=== PATIENT | male | born 1945 ===

== ENCOUNTER 2018-03-07 14:51 | Inpatient (IN) | payer MEDICARE ==
--- NOTE | 2018-03-07 15:08 | ED PDOC ---
Arrival/HPI - General Chief Complaint: Shortness Of Breath Time Seen by Provider: 03/07/18 15:00 Historian: Patient - History of Present Illness Narrative History of Present Illness (Text): 03/07/18 15:07 A 72 year old male, whose past medical history includes asthma, COPD, gout, and hypertension, presents to the emergency department complaining of shortness of breath. Patient reports worse 30 mg Predizone prior to arrival. Patient also has Albuterol treatment right now. Patient denies any fever, chills, or any other complaints at this time. PMD: Dr. Tafoya Past Medical History - Provider Review Nursing Documentation Reviewed: Yes - Infectious Disease Hx of Infectious Diseases: None - Cardiac Hx Hypertension: Yes - Pulmonary Hx Asthma: Yes - Neurological Hx Neurological Disorder: No - HEENT Hx HEENT Disorder: No - Endocrine/Metabolic Hx Endocrine Disorders: No - Hematological/Oncological Hx Blood Disorders: No - Integumentary Hx Dermatological Disorder: No - Musculoskeletal/Rheumatological Hx Musculoskeletal Disorders: No - Gastrointestinal Hx Gastrointestinal Disorders: No - Genitourinary/Gynecological Hx Genitourinary Disorders: No - Psychiatric Hx Psychophysiologic Disorder: No Hx Substance Use: No - Anesthesia Hx Anesthesia: No Family/Social History - Physician Review Nursing Documentation Reviewed: Yes Family/Social History: No Known Family HX Smoking Status: Unknown If Ever Smoked Hx Alcohol Use: No Frequency of alcohol use: Socially Hx Substance Use: No Allergies/Home Meds Allergies/Adverse Reactions: Allergies levofloxacin [From Levaquin] Allergy (Verified 03/07/18 14:57) RASH Home Medications: Home Meds Medication Instructions Recorded Confirmed Albuterol/Ipratropium [Duoneb 3 3 ml IH PRN PRN 03/07/18 03/07/18 MG/3 Ml-0.5 MG/3 Ml 3 Ml] Colchicine [Colcrys] 0.6 mg PO PRN 03/07/18 03/07/18 Fluticasone/Salmeterol 500/50 1 puff IN BID 03/07/18 03/07/18 [Advair Diskus 500/50] Losartan [Cozaar] 50 mg PO DAILY 03/07/18 03/07/18 predniSONE [Prednisone] 10 mg PO DAILY 03/07/18 03/07/18 Review of Systems - Physician Review All systems were reviewed & negative as marked: Yes - Review of Systems Constitutional: absent: Fevers, Night Sweats Respiratory: SOB Physical Exam Vital Signs Temp Pulse Resp BP Pulse Ox 03/07/18 17:10 98 F 114 H 21 148/82 100 03/07/18 15:52 98.2 F 114 H 20 142/71 96 03/07/18 15:00 116 H 100 03/07/18 14:52 97.6 F 120 H 20 152/80 H 95 Temperature: Afebrile Blood Pressure: Normal Pulse: Regular Respiratory Rate: Normal Appearance: Positive for: Well-Appearing Pain Distress: None Mental Status: Positive for: Alert and Oriented X 3 - Systems Exam Respiratory/Chest: Present: Wheezes (all lung shaffer) Cardiovascular: Present: Regular Rate and Rhythm, Normal S1, S2. No: Murmurs Abdomen: No: Tenderness, Distention, Peritoneal Signs Upper Extremity: Present: Normal Inspection. No: Cyanosis, Edema Lower Extremity: Present: Normal Inspection. No: Edema Neurological: Present: GCS=15, CN II-XII Intact, Speech Normal, Other ( conversational dyspnea) Skin: Present: Warm, Dry, Normal Color. No: Rashes Psychiatric: Present: Alert, Oriented x 3, Normal Insight, Normal Concentration Medical Decision Making ED Course and Treatment: 03/07/18 15:08 Impression: 72 year old male with shortness of breath. Plan: -- EKG -- Chest X-ray -- Albuterol -- Magnesium Sulfate -- SOLU-Medrol -- Reassess and disposition Progress Notes: EKG: Ordered, reviewed and independently interpreted the EKG. Rate: 121 BPM Rhythm: Sinus tachycardia. Interpretation: No ST segment elevations or depressions, no T-wave inversions, normal intervals. 03/07/18 15:47 Chest X-ray shows right lower lobe infiltrate as interpreted by me. Dr. Roper has been paged in order to admit patient, since Dr. Tafoya admits under Dr. Roper. - Lab Interpretations Microbiology Results: Microbiology Results 03/07/18 16:00 Blood-Venous Blood Culture - Preliminary NO GROWTH AFTER 3 DAYS Lab Results: 03/07/18 15:00 03/07/18 15:00 Lab Results 03/07/18 15:30: Triglycerides 182 H, Cholesterol 176, LDL Cholesterol Direct 93 , HDL Cholesterol 51 03/07/18 15:00: Sodium 150 H, Potassium 4.2, Chloride 109 H, Carbon Dioxide 27, Anion Gap 18, BUN 24 H, Creatinine 1.2, Est GFR ( Amer) > 60, Est GFR ( Non-Af Amer) 60, Random Glucose 103, Calcium 9.3, Total Bilirubin 0.6, AST 48, ALT 42, Alkaline Phosphatase 80, Lactate Dehydrogenase 723 H, Total Creatine Kinase 150, Troponin I < 0.01, NT-Pro-B Natriuret Pep 117, Total Protein 7.3, Albumin 4.6, Globulin 2.8, Albumin/Globulin Ratio 1.7 03/07/18 15:00: PT 10.7, INR 0.94 03/07/18 15:00: WBC 10.6, RBC 4.63, Hgb 14.2, Hct 43.9, MCV 94.8, MCH 30.7, MCHC 32.3, RDW 13.5, Plt Count 186, MPV 9.8, Gran % 70.9 H, Lymph % (Auto) 20.4 L, [place] % (Auto) 6.3 H, Eos % (Auto) 2.2, Baso % (Auto) 0.2, Gran # 7.52 H, Lymph # (Auto) 2.2, [place] # (Auto) 0.7 H, Eos # (Auto) 0.2, Baso # (Auto) 0.02 I have reviewed the lab results: Yes - RAD Interpretation Radiology Orders: 03/07/18 15:05 CHEST PORTABLE [RAD] Stat - Medication Orders Current Medication Orders: Albuterol/Ipratropium (Duoneb 3 Mg/0.5 Mg (3 Ml) Ud) 3 ml IH Q2H PRN PRN Reason: Shortness of Breath Last Admin: 03/08/18 16:56 Dose: 3 ml Albuterol/Ipratropium (Duoneb 3 Mg/0.5 Mg (3 Ml) Ud) 3 ml IH [id number] [facility] Last Admin: 03/11/18 01:25 Dose: 3 ml Arformoterol Tartrate (Brovana) 15 mcg IH [id number] [facility] Last Admin: 03/10/18 19:48 Dose: 15 mcg Azithromycin (Zithromax) 500 mg PO DAILY [facility] Last Admin: 03/10/18 11:08 Dose: 500 mg Budesonide (Pulmicort Respules) 1 mg IH [id number] [facility] Last Admin: 03/10/18 19:49 Dose: 0.5 mg Fluticasone Propionate (Flonase) 1 actuation NS BID [facility] Last Admin: 03/10/18 18:24 Dose: 1 actuation Ceftriaxone Sodium (Rocephin 1 Gram Ivpb) 1 gm in 100 mls @ 100 mls/hr IVPB DAILY [facility] PRN Reason: Protocol Last Admin: 03/10/18 11:08 Dose: 100 mls/hr eMAR Start Stop Document 03/10/18 11:08 CD (Rec: 03/10/18 11:08 CD [id number]) Intravenous Solution Start Date 03/10/18 Start Time 11:08 Losartan Potassium (Cozaar) 50 mg PO DAILY [facility] Last Admin: 03/10/18 11:08 Dose: 50 mg Methylprednisolone (Solu-Medrol) 20 mg IVP Q12 [facility] Last Admin: 03/10/18 21:30 Dose: 20 mg IVP Administration Document 03/10/18 21:30 MB (Rec: 03/10/18 21:31 MB [facility] [id number]) Charges for Administration # of IVP Administrations 1 Montelukast Sodium (Singulair) 10 mg PO HS [facility] Last Admin: 03/10/18 21:30 Dose: 10 mg Pantoprazole Sodium (Protonix Ec Tab) 40 mg PO 0630 [facility] Last Admin: 03/11/18 06:14 Dose: 40 mg Discontinued Medications Albuterol Sulfate (Albuterol 0.083% Inhal Suad (2.5 Mg/3 Ml) Ud) 7.5 mg INH STAT STA Stop: 03/07/18 15:11 Last Admin: 03/07/18 15:17 Dose: 7.5 mg Magnesium Sulfate 2 gm/ Sodium (Chloride) 104 mls @ 102 mls/hr IVPB ONCE ONE Stop: 03/07/18 16:11 Last Admin: 03/07/18 15:57 Dose: 102 mls/hr eMAR Start Stop Document 03/07/18 15:57 GMI (Rec: 03/07/18 15:57 GMI [id number]) Intravenous Solution Start Date 03/07/18 Start Time 15:57 Ceftriaxone Sodium (Rocephin 1 Gram Ivpb) 1 gm in 100 mls @ 200 mls/hr IVPB STAT STA PRN Reason: Protocol Stop: 03/07/18 16:17 Last Admin: 03/07/18 16:11 Dose: 200 mls/hr eMAR Start Stop Document 03/07/18 16:11 GMI (Rec: 03/07/18 16:11 GMI [id number]) Intravenous Solution Start Date 03/07/18 Start Time 16:11 End Date 03/07/18 End time 17:06 Total Infusion Time 55 Azithromycin (Zithromax 500mg In Ns) 500 mg in 250 mls @ 167 mls/hr IVPB STAT STA PRN Reason: Protocol Stop: 03/07/18 17:17 Last Admin: 03/07/18 16:58 Dose: 167 mls/hr eMAR Start Stop Document 03/07/18 16:58 GMI (Rec: 03/07/18 16:58 GMI [id number]) Intravenous Solution Start Date 03/07/18 Start Time 16:58 Azithromycin (Zithromax 500mg In Ns) 500 mg in 250 mls @ 167 mls/hr IVPB DAILY BLANK PRN Reason: Protocol Last Admin: 03/08/18 09:21 Dose: 167 mls/hr eMAR Start Stop Document 03/08/18 09:21 KMS (Rec: 03/08/18 09:21 KMS [id number]) Intravenous Solution Start Date 03/08/18 Start Time 09:21 End Date 03/08/18 End time 10:21 Total Infusion Time 60 Methylprednisolone (Solu-Medrol) 125 mg IVP STAT STA Stop: 03/07/18 15:11 Last Admin: 03/07/18 15:17 Dose: 125 mg IVP Administration Document 03/07/18 15:17 GMI (Rec: 03/07/18 15:17 GMI [id number]) Charges for Administration # of IVP Administrations 1 Methylprednisolone (Solu-Medrol) 40 mg IV Q8H BLANK Last Admin: 03/08/18 01:29 Dose: 40 mg eMAR Start Stop Document 03/08/18 01:29 ST (Rec: 03/08/18 01:29 ST [id number]) Intravenous Solution Start Date 03/08/18 Start Time 01:29 End Date 03/08/18 End time 01:31 Total Infusion Time 2 Methylprednisolone (Solu-Medrol) 40 mg IVP Q8H [facility] Last Admin: 03/09/18 17:31 Dose: 40 mg IVP Administration Document 03/09/18 17:31 KMS (Rec: 03/09/18 17:31 KMS [id number]) Charges for Administration # of IVP Administrations 1 Methylprednisolone (Solu-Medrol) 40 mg IVP Q12 BLANK Last Admin: 03/10/18 11:08 Dose: 40 mg IVP Administration Document 03/10/18 11:08 CD (Rec: 03/10/18 11:08 CD [id number]) Charges for Administration # of IVP Administrations 1 - Scribe Statement The provider has reviewed the documentation as recorded by the Maricel Hamilton Provider Scribe Attestation: All medical record entries made by the Scribe were at my direction and personally dictated by me. I have reviewed the chart and agree that the record accurately reflects my personal performance of the history, physical exam, medical decision making, and the department course for this patient. I have also personally directed, reviewed, and agree with the discharge instructions and disposition. Disposition/Present on Arrival - Present on Arrival Any Indicators Present on Arrival: No History of DVT/PE: No History of Uncontrolled Diabetes: No Urinary Catheter: No History of Decub. Ulcer: No History Surgical Site Infection Following: None - Disposition Have Diagnosis and Disposition been Completed?: Yes Diagnosis: COPD (chronic obstructive pulmonary disease) Disposition: HOSPITALIZED Disposition Time: 15:00 Patient Plan: Admission Condition: FAIR
[2018-03-07] MEDS ORDERED: Albuterol 0.083% Inhal Sol (2.5 mg/3 mL) UD INH STA (15:10)
[2018-03-07] MEDS ORDERED: Magnesium Sulfate 2 GM in Sodium Chloride 0.9% 100 ML IVPB ONE (15:10)
[2018-03-07 15:16] LABS: BASO # 0.02 K/mm3 (0.0-2.0); BASO % 0.2 % (0.0-3.0); EOS # 0.2 (0.0-0.7); EOS % 2.2 % (1.5-5.0); GRAN # 7.52 (1.4-6.5); GRAN % 70.9 % (50.0-68.0); HEMOGLOBIN 14.2 g/dL (14.0-18.0); LYMPH # 2.2 (1.2-3.4); LYMPH % 20.4 % (22.0-35.0); MEAN CELL VOLUME 94.8 fl (80.0-105.0); MEAN CORPUSCULAR HEMOGLOBIN 30.7 pg (25.0-35.0); MEAN CORPUSCULAR HGB CONC 32.3 g/dl (31.0-37.0); MEAN PLATELET VOLUME 9.8 fl (7.0-11.0); MONO # 0.7 (0.1-0.6); MONO % 6.3 % (1.0-6.0); RBC 4.63 10^6/uL (3.5-6.1); RED CELL DISTRIBUTION WIDTH 13.5 % (11.5-14.5); WHITE BLOOD COUNT 10.6 10^3/ul (4.5-11.0)
[2018-03-07 15:22] LABS: INR 0.94 (0.93-1.08); PROTHROMBIN TIME 10.7 SECONDS (9.4-12.5)
[2018-03-07 15:28] LABS: ALB/GLOB RATIO 1.7 (1.1-1.8); ALBUMIN 4.6 g/dL (3.0-4.8); ALT/SGPT 42 U/L (7-56); AST/SGOT 48 U/L (17-59); BLOOD UREA NITROGEN 24 mg/dL (7-21); CALCIUM 9.3 mg/dL (8.4-10.5); GFR AFRICAN-AMERICAN > 60; GFR NON-AFRICAN AMERICAN 60
[2018-03-07 15:39] LABS: B-TYPE NATRIURETIC PEPTIDE 117 pg/mL (0-450); TROPONIN I < 0.01 ng/mL
[2018-03-07] MEDS ORDERED: cefTRIAXone 1 gm 1 GM/100 ML BAG IVPB STA (15:48)
[2018-03-07] MEDS ORDERED: Azithromycin 500MG/NS 250ml 500 MG/250 ML BAG IVPB STA (15:48)
--- NOTE | 2018-03-07 16:02 | RAD ---
HISTORY: Exacerbation COPD COMPARISON: No prior. FINDINGS: LUNGS: Suspect mild subsegmental atelectasis left lung base ; follow-up radiographs at interval could be performed to assess for developing infiltrate. PLEURA: No significant pleural effusion identified, no pneumothorax apparent. CARDIOVASCULAR: Normal. OSSEOUS STRUCTURES: Minor multilevel degenerative spondylosis of the thoracic spine. VISUALIZED UPPER ABDOMEN: Normal. OTHER FINDINGS: None. IMPRESSION: Suspect mild subsegmental atelectasis left lung base ; follow-up radiographs at interval could be performed to assess for developing infiltrate.
[2018-03-07] MEDS ORDERED: Albuterol-Ipratrop 3 mg / 0.5 (3 ml) UD IH PRN (17:40)
[2018-03-07] MEDS: MethylPREDNISolone 40 mg Vial IV SCH (17:52)
[2018-03-07 18:34] LABS: HDL CHOLESTEROL 51 mg/dL (29-60)
[2018-03-07 18:45] LABS: LDL CHOLESTEROL 93 mg/dL (0-129)
[2018-03-07 18:49] VITALS: BMI 21.6
--- NOTE | 2018-03-07 20:23 | HP ---
HISTORY OF PRESENT ILLNESS: Patient is 72 years old, came to emergency room because of increasing cough, congestion, shortness of breath. Patient states he took his inhaler with no significant relief and he also had some leftover prednisone 20 mg, but no significant relief and that is why he came to emergency room for further evaluation. PAST MEDICAL HISTORY: He has significant past medical history for: 1. Hypertension. 2. COPD. 3. History of gout. ALLERGIES: ALLERGIC TO LEVAQUIN. MEDICATIONS: At home, he is on losartan 50 mg daily, Advair 500/50 one puff twice a day, colchicine 0.6 as needed, prednisone 10 mg daily, and nebulizer treatment. SOCIAL HISTORY: Socially, he drinks and used to smoke in the past. PHYSICAL EXAMINATION: GENERAL: He is awake, alert, oriented, communicative. VITAL SIGNS: He is afebrile, pulse 114, respirations 19, blood pressure 142/71. LUNGS: Bilateral diffusely decreased breath sounds with rhonchi. HEART: S1 and S2 audible. ABDOMEN: Soft, nontender. No rebound. No guarding. NEUROLOGICAL: He is awake, alert, oriented, communicative. LABORATORY DATA: WBC is 10.6, hemoglobin 14, hematocrit 43, platelets 186. PT is 10.7, INR 0.94. Chemistry: Sodium 150, potassium 4.2, chloride 109, CO2 of 27, BUN 24, creatinine 1.2, blood sugar of 103. LFTs are within normal limit. LDH is 723. CPK is 150. Troponin 0.01. X-ray of chest done that shows mild subsegmental atelectasis at the left lung base. ASSESSMENT: 1. Chronic obstructive pulmonary disease exacerbation. 2. Asthmatic bronchitis. 3. Hypertension. 4. Bronchospasms. PLAN: I will start the patient on IV steroid, antibiotic. I will order for CT scan of the chest. I will continue nebulizer treatment and resume his medications that he takes at home. Dinora Ortiz MD
[2018-03-07] MEDS: Albuterol-Ipratrop 3 mg / 0.5 (3 ml) UD IH SCH (20:34)
[2018-03-08] MEDS: MethylPREDNISolone 40 mg Vial IV SCH (01:29)
[2018-03-08] MEDS: Albuterol-Ipratrop 3 mg / 0.5 (3 ml) UD IH SCH ×4 (02:13→20:26)
[2018-03-08] MEDS: Pantoprazole 40 mg EC Tab PO SCH (05:39)
[2018-03-08 06:21] LABS: ALB/GLOB RATIO 1.5 (1.1-1.8); ALBUMIN 3.8 g/dL (3.0-4.8); ALT/SGPT 39 U/L (7-56); AST/SGOT 37 U/L (17-59); BLOOD UREA NITROGEN 24 mg/dL (7-21); CALCIUM 8.6 mg/dL (8.4-10.5); GFR AFRICAN-AMERICAN > 60; GFR NON-AFRICAN AMERICAN > 60
[2018-03-08 06:36] LABS: FREE T4 1.44 ng/dL (0.78-2.19)
--- NOTE | 2018-03-08 08:37 | CARD ---
APPROVED REPORT EKG Measurement Heart [id number] <Conclusion> Sinus tachycardia Prolonged QTc
[2018-03-08] MEDS: cefTRIAXone 1 gm 1 GM/100 ML BAG IVPB SCH (09:21)
[2018-03-08] MEDS: MethylPREDNISolone 40 mg Vial IVP SCH ×2 (09:25→17:21)
--- NOTE | 2018-03-08 09:40 | CT ---
PROCEDURE: CT Chest without contrast HISTORY: SOB COMPARISON: None. TECHNIQUE: Contiguous axial images were obtained through the chest without intravenous contrast enhancement. Sagittal and coronal reconstructions were performed. Radiation dose (DLP): mGy-cm. This CT exam was performed using one or more of the following dose reduction techniques: Automated exposure control, adjustment of the mA and/or kV according to patient size, and/or use of iterative reconstruction technique. FINDINGS: LUNGS: Clear lungs. Visualized airway clear. MEDIASTINUM: Unremarkable thoracic aorta. No aneurysm. Normal sized heart. Main pulmonary artery unremarkable. No vascular congestion. No lymphadenopathy. PLEURA: No pleural fluid. No pneumothorax. BONES: No fracture. No destructive lesion. UPPER ABDOMEN: Grossly unremarkable. OTHER FINDINGS: Small hiatal hernia. . IMPRESSION: No acute abnormalities.
[2018-03-08] MEDS ORDERED: Azithromycin 500MG/NS 250ml 500 MG/250 ML BAG IVPB SCH (10:00)
[2018-03-08] MEDS: Fluticasone Nasal 50 mcg/Spray NS SCH (17:12)
--- NOTE | 2018-03-08 22:17 | CON ---
DATE: PULMONARY CONSULT REFERRING PHYSICIAN: Dr. Ortiz/Dr. Roper. CONSULTATIONS Cough, shortness of breath, chronic lung disease. HISTORY OF PRESENT ILLNESS: This is a 72-year-old gentleman with past medical history of some issue with the prostate, does not know exactly diagnosis, being followed by Dr. Kaye; also, referred to another physician, to which he did not make appointment comes in with rhinitis, postnasal drip, cough and shortness of breath. He tried to treat himself with prednisone as an outpatient in ER. He has a cough, shortness of breath, diffuse wheezing, given IV and inhaled bronchodilator with some relief, admitted for further workup. Presently lying in the bed, still having cough, shortness of breath. No nausea, vomiting, diarrhea, leg pain, leg swelling. PAST MEDICAL HISTORY: Chronic obstructive lung disease, hypertension, history of gout. Has BPH. ALLERGIES: TO LEVAQUIN. SOCIAL HISTORY: Stopped smoking many years ago, denied any alcohol use. FAMILY HISTORY: No significant cardiopulmonary disease reported. MEDICATIONS: He is on Cozaar 50 mg daily, albuterol/Atrovent nebulizer treatment every 2 hours p.r.n. and every 6 hours [id number], Protonix 40 mg daily, Rocephin 1 g daily Solu-Medrol 40 mg every 8 hours, Zithromax 500 mg daily. REVIEW OF SYSTEMS: No headache, postnasal drip, cough, shortness of breath. No chest pain. No nausea, vomiting, no diarrhea or dysuria, no leg pain or leg swelling. PHYSICAL EXAMINATION: GENERAL: Lying in the bed, no acute distress. VITAL SIGNS: Temperature is 98, heart rate 100, respiratory rate is 20, blood pressure 128/60, pulse ox 100% on 2 liters nasal cannula. HEENT: Moist mucous membrane. Crowded airway. NECK: Supple. No JVD. LUNGS: Have a poor airflow with wheezing. HEART: S1, S2. ABDOMEN: Soft, nontender. No organomegaly. EXTREMITIES: No edema. NEUROLOGIC: Awake, alert and follows simple commands. DATA: Shows hemoglobin 14.2, hematocrit 43.9, WBC 10.6, platelets 186. INR 0.94. Sodium 147, potassium 4.8, chloride 112, bicarbonate 25, BUN 24, creatinine 1, glucose is 142, calcium 8.6, AST 37, ALT 39, alkaline phosphatase is 51. Albumin 3.8, triglycerides 182. LDH is 523. Troponin less than 0.01. PSA is 48. TSH is 0.04. CT of the chest is unremarkable for any infiltrate or effusion. IMPRESSION AND PLAN: Sinusitis with chronic obstructive lung disease, history of hypertension, gout, may have a prostate cancer. Pulmonary point of view, doing okay. Continue IV and inhaled bronchodilator. Continue antibiotics - Singulair 10 mg daily, Flonase one spray each nostril twice a day. Need Urology consult. Need prostate biopsy. We will get bone scan, sleep apnea precaution, outpatient pulmonary function test and sleep study. We will follow with you Morgan Coughlin MD
[2018-03-09] MEDS: Albuterol-Ipratrop 3 mg / 0.5 (3 ml) UD IH SCH ×4 (01:33→19:34)
--- NOTE | 2018-03-09 02:43 | HP ---
CHIEF COMPLAINT: Shortness of breath. HISTORY OF PRESENT ILLNESS: Mr. Jeffry Denson is a 72-year-old male with past medical history of asthma, COPD, gouty arthritis, hypertension, came to the emergency department complaining of shortness of breath. Patient also has worsening shortness of breath. He took prednisone 30 mg before arrival. Patient also had albuterol treatment, but it was not helping. Patient denies any fever, chills. No nausea, vomiting, or diarrhea. No hematuria, hematochezia. No headache, no dizziness. No chest pain, no palpitation. Patient is Dr. Yousif Palacios's patient and I am covering him in [facility]. PAST MEDICAL HISTORY: Hypertension, asthma. FAMILY HISTORY: Father and mother noncontributory. HABITS: Never smoked. No drugs. No ethanol. ALLERGIES: PATIENT IS ALLERGIC TO LEVOFLOXACIN. HOME MEDICATIONS: Colchicine, Advair, Xyzal, losartan, prednisone. REVIEW OF SYSTEMS: Patient was seen and examined at the bedside in his room in the telemetry. Still coughing, having shortness of breath. No fever. No chills. Alert and oriented x3. No hematuria or hematochezia. No swelling of legs. PHYSICAL EXAMINATION: VITAL SIGNS: Temperature 98.6, pulse 105, blood pressure 131/75, respiratory rate 20. HEENT: Head normocephalic and atraumatic. Eyes: PERRLA. Extraocular muscles intact. Conjunctivae clear. Nose patent. Mucous membrane moist. NECK: Supple. No carotid bruit, JVD, or thyromegaly. CHEST: Bilateral symmetrical. HEART: S1 and S2 positive. LUNGS: Positive wheezing bilaterally. ABDOMEN: Soft, Bowel sounds present. No organomegaly. EXTREMITIES: No edema, no cyanosis. NEUROLOGIC: The patient is awake and alert, moving all four extremities. No focal deficit. LABORATORY DATA: White blood cells 10.6, hemoglobin 14.2, hematocrit 43.9, platelets 186. Sodium 147, potassium 4.8, BUN 24, creatinine 1, glucose 142. ASSESSMENT AND PLAN: Mr. Jeffry Denson is a 72-year-old male with hyperchloremia, increased BUN, hyperglycemia, hypertriglyceridemia, increased prostate-specific antigen, rule out benign prostatic hyperplasia, hyperthyroidism, came with exacerbation of chronic obstructive pulmonary disease. CAT scan of chest is done. History of hypertension, history of gouty arthritis, sinusitis with chronic obstructive lung disease. Continue IV and inhaled bronchodilators. Continue antibiotics, Singulair, Flonase added by Dr. Coughlin. We will call Urology consult. We will decide about prostate biopsy. We will get bone scan and sleep apnea precaution. Need for pulmonary function test and sleep study as outpatient. Appreciate Dr. Coughlin's input. CAT scan of chest done showed no acute abnormalities. Small hiatal hernia. No fracture. No pleural effusion. Gastrointestinal and deep vein thrombosis prophylaxis. Repeat labs. We will follow up. Mary Roper MD
[2018-03-09] MEDS: MethylPREDNISolone 40 mg Vial IVP SCH ×4 (03:06→22:36)
[2018-03-09] MEDS: Pantoprazole 40 mg EC Tab PO SCH (05:55)
[2018-03-09] MEDS: cefTRIAXone 1 gm 1 GM/100 ML BAG IVPB SCH (09:54)
[2018-03-09] MEDS: Fluticasone Nasal 50 mcg/Spray NS SCH ×2 (09:54→17:31)
[2018-03-09 12:09] VITALS: RESP 20
--- NOTE | 2018-03-09 17:45 | NM ---
PROCEDURE: Whole Body Bone Scan HISTORY: mets COMPARISON: 11/21/2017 bone scan 03/07/2018 CT thorax with particular attention directed to in the ribs and right clavicle TECHNIQUE: Following administration of 19.2 miCu of Tc MDP multiplanar whole body images were obtained. FINDINGS: Evidence for bony metastatic disease: None. Anatomic comparison of abnormal increased uptake costovertebral junctions and medial aspect of the right sternum near the sternoclavicular joint are unchanged and therefore likely degenerative based on stability but more importantly on the findings as they compared to the recent CT scan of the thorax 03/07/2018. Degenerative uptake: Bilateral lower extremities Physiologic uptake: Normal physiologic activity in the kidneys. Other findings: None. IMPRESSION: Findings attributed to metastatic disease on the prior study appear on the recent CT scan to be degenerative. Accordingly no evidence of metastatic disease. No new findings compared to the prior study 11/21/2017
[2018-03-09] MEDS: Arformoterol 15 mcg/2 ml Inh Sol IH SCH (19:33)
[2018-03-09] MEDS: Budesonide 0.5 mg/2 ml Inhal Susp UD IH SCH (19:33)
[2018-03-09] MEDS ORDERED: Fluticasone-Salmeterol 500-50mcg Diskus INH SCH (22:00)
[2018-03-10] MEDS: Albuterol-Ipratrop 3 mg / 0.5 (3 ml) UD IH SCH ×3 (01:05→19:49)
--- NOTE | 2018-03-10 01:21 | PN ---
DATE: 03/09/2018 PULMONARY PROGRESS NOTE REFERRING PHYSICIAN: Mary Roper MD SUBJECTIVE: He is lying in the bed, head at 45 degrees. Night was unremarkable. Feels little better. Decreased cough. Decreased shortness of breath. No nausea, no vomiting, no diarrhea. No leg pain or leg swelling. OBJECTIVE: GENERAL: In no acute distress. VITAL SIGNS: Temperature , heart rate 70, respiratory rate 20, blood pressure 146/88, pulse oximetry 98% on room air. HEENT: Moist mucous membrane. Crowded airway. Mallampati score is 4. NECK: Supple. No JVD. LUNGS: Have scattered rhonchi, prolonged expiratory phase. HEART: S1 and S2. ABDOMEN: Soft, nontender. No organomegaly. EXTREMITIES: There is no edema. NEUROLOGIC: Awake, alert, follows simple commands. MEDICATIONS: He is on Brovana inhaled twice a day, Cozaar 50 mg daily, DuoNeb every 2 hours p.r.n. and every 6 hours [id number], Flonase 1 spray each nostril twice a day, Protonix 40 mg daily, Pulmicort inhaled twice a day, Rocephin 1 g daily, Singulair 10 mg daily, Solu-Medrol 40 mg every 8 hours, Zithromax 500 mg daily. LABORATORY DATA: Reviewed. No new lab is available since yesterday. Microbiology: Blood culture has been negative. He has a bone scan done. Finding attributed to the metastatic disease in the prior study appears on the recent CT scan to be degenerative changes. Accordingly, no evidence of metastatic disease. No new findings compared to prior study since 11/21/2017. IMPRESSION AND PLAN: Sinusitis with chronic obstructive lung disease, hypertension, gouty arthritis. He has high prostate-specific antigen. Bone scan is negative for metastatic disease. Continue steroids. We will decrease to 40 twice a day. Continue antibiotics, inhaled bronchodilator, gastric prophylaxis, deep vein thrombosis prophylaxis. At sometime, he will need prostate biopsy once pulmonary status improve. Thank you and we will follow with you. Morgan Coughlin MD
[2018-03-10 06:33] LABS: MEAN CELL VOLUME 92.8 fl (80.0-105.0); MEAN CORPUSCULAR HEMOGLOBIN 30.2 pg (25.0-35.0); MEAN CORPUSCULAR HGB CONC 32.6 g/dl (31.0-37.0); MEAN PLATELET VOLUME 9.8 fl (7.0-11.0); RBC 4.3 10^6/uL (3.5-6.1); WHITE BLOOD COUNT 14.3 10^3/ul (4.5-11.0)
[2018-03-10 06:48] LABS: BLOOD UREA NITROGEN 31 mg/dL (7-21); CALCIUM 8.8 mg/dL (8.4-10.5); GFR AFRICAN-AMERICAN > 60; GFR NON-AFRICAN AMERICAN > 60
[2018-03-10] MEDS: Pantoprazole 40 mg EC Tab PO SCH (07:00)
[2018-03-10] MEDS: Arformoterol 15 mcg/2 ml Inh Sol IH SCH ×2 (07:40→19:48)
[2018-03-10] MEDS: Budesonide 0.5 mg/2 ml Inhal Susp UD IH SCH ×2 (07:41→19:49)
--- NOTE | 2018-03-10 08:32 | PN ---
DATE: 03/09/2018 SUBJECTIVE: The patient was seen and examined at the bedside, looking comfortable , shortness of breath. No nausea, vomiting, diarrhea. No hematuria or hematochezia. No headache. No dizziness. No chest pain. No palpitations. PHYSICAL EXAMINATION: VITAL SIGNS: Temperature 98.5, pulse 97, blood pressure 120/80 , respiratory rate 20. HEENT: Head normocephalic, atraumatic. Eyes PERRLA. Extraocular muscles intact. Conjunctivae clear. Nose patent. Mucous membrane moist. NECK: Supple. No carotid bruit. No JVD or thyromegaly. CHEST: Bilaterally symmetrical. HEART: S1 and S2 positive. LUNGS: Clear to auscultation. ABDOMEN: Soft. Bowel sounds positive. No organomegaly. EXTREMITIES: No edema. No cyanosis. NEUROLOGICAL: The patient is awake and alert. Moving all 4 extremities. No focal deficits. LABORATORY DATA: White blood cells 10.6, hemoglobin 14.2, hematocrit 43.9, platelets 186. Sodium 147, potassium 4.8, BUN 24, creatinine is 1, glucose 142, triglyceride 182. MEDICATIONS: Brovana, Cozaar, albuterol, Flonase, Protonix, Pulmicort, Rocephin, Singulair, Solu-Medrol tapering doses, azithromycin. ASSESSMENT AND PLAN: Mr. Jeffry Denson is a 72-year-old male with hyperchloremia, increased BUN, hyperglycemia, hypertriglyceridemia, increased PSA, rule out benign prostatic hypertrophy, hyperthyroidism. Plan for bone scan reviewed by me. CAT scan of the chest reviewed by me. Came with exacerbation of chronic obstructive pulmonary disease, asthma. History of hypertension. Getting tapering dose of steroids. Continue antibiotics, Singular, Flonase. 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 Gastrointestinal and deep venous thrombosis prophylaxis. Repeat labs. We will follow up. Mary Roper MD MTDD
[2018-03-10] MEDS: cefTRIAXone 1 gm 1 GM/100 ML BAG IVPB SCH (11:08)
[2018-03-10] MEDS: MethylPREDNISolone 40 mg Vial IVP SCH ×2 (11:08→21:30)
[2018-03-10] MEDS: Fluticasone Nasal 50 mcg/Spray NS SCH ×2 (11:08→18:24)
--- NOTE | 2018-03-10 13:49 | PN ---
DATE: 03/10/2018 PULMONARY PROGRESS NOTE REFERRING PHYSICIAN: Mary Roper MD. SUBJECTIVE: He is sitting at the side of the bed. Night was unremarkable. Feels better. No headache. No rhinitis. No nausea. No vomiting. No diarrhea. No leg pain or leg swelling. OBJECTIVE: GENERAL: In no acute distress. VITAL SIGNS: Temperature is 98, heart rate is 102, respiratory rate is 20, blood pressure is 135/82, and pulse ox is 98% on 2 liters nasal cannula. HEENT: Moist mucous membranes. Crowded airway. Mallampati score is 4. NECK: Supple. No JVD. LUNGS: Has a prolonged expiratory phase. HEART: S1 and S2. ABDOMEN: Soft and nontender. No organomegaly. EXTREMITIES: No edema. NEUROLOGIC: Awake and alert. Follows simple commands. MEDICATIONS: Brovana inhaled twice a day, Cozaar 50 mg daily and albuterol/Atrovent nebulizer every 12 hours p.r.n. and every 6 hours [id number], Flonase one spray each nostril twice a day, Protonix 40 mg daily, Pulmicort inhaled twice a day, Rocephin 1 g IV daily, Singular 10 mg daily, Solu-Medrol 40 mg every 12 hours, Zithromax 500 mg daily. LABORATORY DATA: Shows hemoglobin 13, hematocrit 39.9, WBC 14.3, platelets is 174. Sodium 145, potassium 4.3, chloride 109, bicarbonate 26, BUN 31, creatinine 1.1, glucose 167, calcium 8.8, PSA was 49. Microbiology: Blood culture is negative. IMPRESSION AND PLAN: Chronic obstructive lung disease, sinusitis, hypertension, gouty arthritis, high prostate surface antigen. Pulmonary point of view, doing okay. Continue bronchodilator. Keep head at 45 degrees. Decrease Solu-Medrol to 20 every 12 hours. Antibiotics. Gastric prophylaxis. Deep venous thrombosis prophylaxis. Upon discharge, need PFT and sleep study, need Urology consult. Morgan Coughlin MD
[2018-03-11] MEDS: Albuterol-Ipratrop 3 mg / 0.5 (3 ml) UD IH SCH ×4 (01:25→20:30)
--- NOTE | 2018-03-11 03:25 | PN ---
DATE: 03/10/2018 SUBJECTIVE: The patient is a 72-year-old male. The patient is seen and examined at the bedside, looking comfortable. No nausea, vomiting or diarrhea. No hematuria or hematochezia. No swelling of the leg. No chest pain. No palpitations. No headache. No dizziness. PHYSICAL EXAMINATION: VITAL SIGNS: Temperature 98, heart rate 102, respirations 20, blood pressure 135/82, pulse oximetry 98% on 2 liter nasal cannula. HEENT: Head normocephalic, atraumatic. Eyes PERRLA. Extraocular muscles are intact. Conjunctivae clear. Nose patent. NECK: Supple. No carotid bruit. No JVD. No thyromegaly. CHEST: Bilaterally symmetrical. HEART: S1 and S2 positive. LUNGS: Has prolonged expiratory phase. ABDOMEN: Soft, nontender. No organomegaly. EXTREMITIES: No edema. No cyanosis. NEUROLOGICAL: The patient is awake and alert. Follow simple commands. LABORATORY DATA: White blood cell is 14.3, hemoglobin 13, hematocrit 39.9, platelets 174. Sodium 145, potassium 4.3, BUN 31, creatinine 1.1, PSA 49. MEDICATIONS: Brovana, Cozaar, albuterol, Flonase, Protonix, Pulmicort, Rocephin, Singulair, Solu-Medrol, Zithromax. ASSESSMENT AND PLAN: Mr. Jeffry Denson is a 72-year-old male with chronic obstructive lung disease, sinusitis, hypertension, gouty arthritis, high prostate specific antigen. Pulmonary point of view, the patient is doing good. Continue bronchodilators. Keep head elevated to 45 degrees. If the patient has increased BPH, Solu-Medrol tapering doses. Gastric prophylaxis. Deep vein thrombosis prophylaxis. We will follow up. Discontinue telemetry. Mary Roper MD
[2018-03-11] MEDS: Pantoprazole 40 mg EC Tab PO SCH (06:14)
[2018-03-11 07:07] LABS: HEMOGLOBIN 13.7 g/dL (14.0-18.0); MEAN CELL VOLUME 91.3 fl (80.0-105.0); MEAN CORPUSCULAR HEMOGLOBIN 30.6 pg (25.0-35.0); MEAN CORPUSCULAR HGB CONC 33.5 g/dl (31.0-37.0); MEAN PLATELET VOLUME 9.6 fl (7.0-11.0); RBC 4.48 10^6/uL (3.5-6.1); WHITE BLOOD COUNT 13.8 10^3/ul (4.5-11.0)
[2018-03-11] MEDS: Budesonide 0.5 mg/2 ml Inhal Susp UD IH SCH ×2 (07:21→20:30)
[2018-03-11 07:40] LABS: BLOOD UREA NITROGEN 32 mg/dL (7-21); GFR AFRICAN-AMERICAN > 60; GFR NON-AFRICAN AMERICAN > 60
[2018-03-11] MEDS: Arformoterol 15 mcg/2 ml Inh Sol IH SCH ×2 (08:07→20:30)
[2018-03-11] MEDS: cefTRIAXone 1 gm 1 GM/100 ML BAG IVPB SCH (09:34)
[2018-03-11] MEDS: MethylPREDNISolone 40 mg Vial IVP SCH ×2 (09:35→21:06)
[2018-03-11] MEDS: Fluticasone Nasal 50 mcg/Spray NS SCH ×2 (10:52→17:45)
--- NOTE | 2018-03-11 20:26 | PN ---
DATE: 03/11/2018 PULMONARY PROGRESS NOTE REFERRING PHYSICIAN: Mary Roper MD. SUBJECTIVE: He is out of bed to chair. Night was unremarkable. Feels better. Decreased cough. Decreased shortness of breath. No nausea. No vomiting, diarrhea, leg pain or leg swelling. OBJECTIVE: GENERAL: In no acute distress. VITAL SIGNS: Temp is 98, heart rate is 94, respiratory rate is 20, blood pressure is 134/91. HEENT: Moist mucous membrane. No ulcer or thrush noted. NECK: Supple. No JVD. LUNGS: Have prolonged expiratory phase. HEART: S1 and S2. ABDOMEN: Soft, nontender. No organomegaly. EXTREMITIES: There is no edema. NEUROLOGICAL: Awake, alert. Follows simple command. MEDICATIONS: He is on Brovana 15 mcg every 12 hours; Cozaar is 50 mg daily; DuoNeb every 2 hours p.r.n., every 6 hours [id number]; Flonase one spray in each nostril twice a day; Protonix 40 mg daily; Pulmicort inhaled twice a day; Rocephin 1 g daily; Singulair 10 mg daily; Solu-Medrol 20 mg every 12 hours; Zithromax 500 mg daily. LABORATORY DATA: Shows hemoglobin 13.7, hematocrit 40.9, WBC 13.8, platelet is 177. Sodium 146, potassium 4.3, chloride 109, bicarbonate 27, BUN 32, creatinine 1.1, glucose 113, calcium 9. Microbiology: Blood culture has been negative. IMPRESSION AND PLAN: Chronic obstructive lung disease, sinusitis, hypertension, gouty arthritis, high prostate-specific antigen. Pulmonary point of view, doing okay. Continue IV and inhaled bronchodilator. Keep head at 45 degrees. Gastric prophylaxis, deep venous thrombosis prophylaxis. We will recommend Urology consult. Thank you and we will follow with you. Morgan Coughlin MD
--- NOTE | 2018-03-11 22:00 | PN ---
DATE: 03/11/2018 SUBJECTIVE: The patient is a 72-year-old male. The patient is seen and examined on the bedside, looking comfortable. No nausea, vomiting, diarrhea. No hematuria or hematochezia. No swelling of the legs. No chest pain. No palpitation. No headache. No dizziness. Still coughing with shortness of breath. PHYSICAL EXAMINATION: VITAL SIGNS: Temperature 98, heart rate 94, respiratory rate 20, blood pressure 134/91. HEENT: Head normocephalic, atraumatic. Eyes PERRLA. Extraocular muscles intact. Conjunctivae clear. Nose patent. Mucous membrane moist. NECK: Supple. No carotid bruit. No JVD or thyromegaly. CHEST: Bilaterally symmetrical. HEART: S1 and S2 positive. LUNGS: Have prolonged expiratory phase. ABDOMEN: Soft, nontender. No organomegaly. EXTREMITIES: No edema. No cyanosis. NEUROLOGICAL: The patient is awake and alert, follows simple commands. LABORATORY DATA: Hemoglobin 13.7, hematocrit 40.9, white blood cells 13.8, platelets 177. Sodium noted , potassium 4.3, chloride 27, BUN 32, creatinine 1.1. Blood cultures have been negative. MEDICATIONS: Brovana, Cozaar, DuoNeb, Protonix, Pulmicort, Rocephin, Singulair, Solu-Medrol, Zithromax. ASSESSMENT AND PLAN: Mr. Jeffry Denson, a 72-year-old male with chronic obstructive lung disease, sinusitis, hypertension, gouty arthritis, high prostate specific antigen. Pulmonary point of view, doing good. Getting inhaled and IV bronchodilators. Keep head elevated. Gastric and gastrointestinal and deep venous thrombosis prophylaxis. Tapering dose of steroid. Repeat lab. I appreciate Dr. Coughlin's input. We will follow up. Mary Roper MD MTDKelli
[2018-03-12] MEDS: Albuterol-Ipratrop 3 mg / 0.5 (3 ml) UD IH SCH ×3 (01:32→13:34)
[2018-03-12] MEDS: Pantoprazole 40 mg EC Tab PO SCH (05:59)
[2018-03-12] MEDS: Arformoterol 15 mcg/2 ml Inh Sol IH SCH (07:52)
[2018-03-12] MEDS: Budesonide 0.5 mg/2 ml Inhal Susp UD IH SCH (07:52)
[2018-03-12 08:11] VITALS: TEMP 98; O2SAT 96
[2018-03-12] MEDS: Fluticasone Nasal 50 mcg/Spray NS SCH (11:26)
[2018-03-12] MEDS: MethylPREDNISolone 40 mg Vial IVP SCH (11:26)
[2018-03-12 11:28] VITALS: BP 137/83; PULSE 90
[2018-03-12] MEDS: cefTRIAXone 1 gm 1 GM/100 ML BAG IVPB SCH (13:44)
--- NOTE | 2018-03-12 18:23 | PN ---
DATE: 03/12/2018 PULMONARY PROGRESS NOTE REFERRING PHYSICIAN: Mary Roper MD SUBJECTIVE: He is sitting at the side of the bed, feels much better, decreased cough, decreased shortness of breath. No nausea. No vomiting or diarrhea. No leg pain or leg swelling. Admits to snoring at nighttime. Daytime sleepy and tired. OBJECTIVE: GENERAL: In no acute distress. VITAL SIGNS: Temperature is 98, heart rate is 90, respiratory rate is 20, blood pressure is 137/83, and pulse ox is 96% on room air. HEENT: Moist mucous membranes. Crowded airway. Mallampati score is 4. NECK: Supple. No JVD. LUNGS: Fair airflow with rhonchi. HEART: S1 and S2. ABDOMEN: Soft, nontender. No organomegaly. EXTREMITIES: No edema. NEUROLOGIC: Awake, alert, follows simple commands. MEDICATIONS: Reviewed and noted. No new changes in medications reported since yesterday. LABORATORY DATA: Reviewed and noted. No new lab is available since yesterday. Microbiology: Blood culture so far there is no growth. IMPRESSION AND PLAN: Chronic obstructive lung disease, sinusitis, hypertension, gouty arthritis, high prostate-specific antigen. Pulmonary point of view, doing well. Could be discharged home as outpatient. Needs sleep study, tapered off the steroids. Also will benefit for attended sleep study. Rule out sleep apnea syndrome. Need to follow up his PSA level as outpatient. If persistently high, needs biopsy. Thank you and we will follow with you. Morgan Coughlin MD
== END 2018-03-12 14:17 | disposition home or self-care (01) | DRG 192 ==
LOC: ED 14:51 → ERH 16:08 → 2RNO 17:27 → 5RNO 03-10 13:47
PROVIDERS: ADMIT Internal Medicine; ATTEND Internal Medicine
PROC: 3E0F7GC Introduction of Other Therapeutic Substance into Respiratory Tract, Via Natural or Artificial Opening (ICD-10-PCS; principal; 2018-03-07)
DX: J44.1 Chronic obstructive pulmonary disease with (acute) exacerbation (principal); I10 Essential (primary) hypertension; N40.0 Benign prostatic hyperplasia without lower urinary tract symptoms; E78.1 Pure hyperglyceridemia; E87.8 Other disorders of electrolyte and fluid balance, not elsewhere classified; K44.9 Diaphragmatic hernia without obstruction or gangrene; M10.9 Gout, unspecified

== ENCOUNTER 2018-03-28 01:18 | Inpatient (IN) | payer MEDICARE, MEDICAID ==
[2018-03-28 01:32] VITALS: BMI 23.0
[2018-03-28] MEDS ORDERED: Sodium Chloride 0.9% 1,000 ML IV SCH (01:45)
[2018-03-28] MEDS ORDERED: Sodium Chloride 0.9% 1,000 ML IV STA ×3 (01:49→06:35)
--- NOTE | 2018-03-28 01:51 | ED PDOC ---
Arrival/HPI - General Chief Complaint: Trauma Time Seen by Provider: 03/28/18 01:20 Historian: Patient - History of Present Illness Narrative History of Present Illness (Text): 03/28/18 01:46 Jeffry Denson is a 72 year old male, whose past medical histyory includes hypertension, COPD, asthma, and Gout, who presents to the Emergency department brought in by EMS complaining of diffuse body aches for the 2 days. Patient states he has been experiencing diffuse body aches with associated bilateral hand pain/swelling and bilateral knee pain. Patient states symptoms are secondary to his Gout and notes he has been in bed for the past 2 days due to pain. Patient also reports subjective fever and cough for the past few days. Patient notes he sitting on his bed tonight and slipped down to the floor. Patient denies any chest pain, shortness of breath, abdominal pain, vomiting, headache, dizziness, or any other complaints. Symptom Onset: Gradual Symptom Course: Unchanged Activities at Onset: Light Context: Home Past Medical History - Provider Review Nursing Documentation Reviewed: Yes - Infectious Disease Hx of Infectious Diseases: None - Cardiac Hx Hypertension: Yes - Pulmonary Hx Asthma: Yes - Neurological Hx Neurological Disorder: No - HEENT Hx HEENT Disorder: No - Endocrine/Metabolic Hx Endocrine Disorders: No - Hematological/Oncological Hx Blood Disorders: No - Integumentary Hx Dermatological Disorder: No - Musculoskeletal/Rheumatological Hx Musculoskeletal Disorders: No - Gastrointestinal Hx Gastrointestinal Disorders: No - Genitourinary/Gynecological Hx Genitourinary Disorders: No - Psychiatric Hx Psychophysiologic Disorder: No Hx Substance Use: No - Anesthesia Hx Anesthesia: No Family/Social History - Physician Review Nursing Documentation Reviewed: Yes Family/Social History: Unknown Family HX Smoking Status: Unknown If Ever Smoked Hx Alcohol Use: No Hx Substance Use: No Allergies/Home Meds Allergies/Adverse Reactions: Allergies levofloxacin [From Levaquin] Allergy (Verified 03/28/18 01:35) RASH Home Medications: Home Meds Medication Instructions Recorded Confirmed Albuterol/Ipratropium [Duoneb 3 3 ml IH PRN PRN 03/07/18 03/28/18 MG/3 Ml-0.5 MG/3 Ml 3 Ml] Colchicine [Colcrys] 0.6 mg PO PRN 03/07/18 03/28/18 Fluticasone/Salmeterol 500/50 1 puff IN BID 03/07/18 03/28/18 [Advair Diskus 500/50] Losartan [Cozaar] 50 mg PO DAILY 03/07/18 03/28/18 predniSONE [Prednisone] 10 mg PO DAILY 03/07/18 03/28/18 Review of Systems - Physician Review All systems were reviewed & negative as marked: Yes - Review of Systems Constitutional: Fevers Eyes: Normal ENT: Normal Respiratory: Cough Cardiovascular: Normal. absent: Chest Pain Gastrointestinal: Normal. absent: Abdominal Pain, Diarrhea, Nausea, Vomiting Genitourinary Male: Normal. absent: Dysuria, Frequency, Hematuria Musculoskeletal: Arthralgias (+bilateral hand pain, +bilateral knee pain) Skin: Normal. absent: Rash Neurological: Normal. absent: Headache, Dizziness Endocrine: Normal Hemo/Lymphatic: Normal Psychiatric: Normal Physical Exam Vital Signs Reviewed: Yes Vital Signs Temp Pulse Resp BP Pulse Ox 03/28/18 06:30 100 H 17 114/64 97 03/28/18 05:41 106 H 17 106/55 L 96 03/28/18 04:00 98.3 F 113 H 17 89/57 L 97 03/28/18 02:57 100.8 F H 03/28/18 01:32 100.8 F H 126 H 18 117/56 L 94 L Temperature: Febrile Blood Pressure: Normal Pulse: Tachycardic Respiratory Rate: Normal Appearance: Positive for: Well-Appearing, Non-Toxic, Comfortable Pain Distress: None Mental Status: Positive for: Alert and Oriented X 3 - Systems Exam Head: Present: Atraumatic, Normocephalic Pupils: Present: PERRL Extroacular Muscles: Present: EOMI Conjunctiva: Present: Normal Mouth: Present: Moist Mucous Membranes Neck: Present: Normal Range of Motion Respiratory/Chest: Present: Clear to Auscultation, Good Air Exchange. No: Respiratory Distress, Accessory Muscle Use Cardiovascular: Present: Regular Rate and Rhythm, Normal S1, S2. No: Murmurs Abdomen: No: Tenderness, Distention, Peritoneal Signs Back: Present: Normal Inspection Upper Extremity: Present: NORMAL PULSES, Swelling (Bilateral hand swelling), Neurovascularly Intact, Capillary Refill < 2s. No: Cyanosis, Edema Lower Extremity: Present: Normal Inspection. No: Edema Neurological: Present: GCS=15, CN II-XII Intact, Speech Normal Skin: Present: Warm, Dry, Normal Color. No: Rashes Psychiatric: Present: Alert, Oriented x 3, Normal Insight, Normal Concentration Medical Decision Making ED Course and Treatment: 03/28/18 01:46 Impression: 72 year old male complaining of diffuse body aches, bilateral hand and knee pain , cough, and subjective fever. Plan: -- EKG -- CXR -- Labs, VBG, cardiac enzymes, uric acid, blood cultures -- Urinalysis, urine cultures -- IV fluids -- Toradol -- Reassess and disposition Prior Visits: Notes and results from previous visits were reviewed. Progress Notes: 03/28/18 02:28 Reviewed EKG, sinus tachycardia at [address] bpm[address] Non-specific ST/T wave changes. Chest X-ray reviewed, shows no acute processes. 03/28/18 05:[address] Roper who is aware and agrees with plan. Accepts pt in to her service 03/28/18 05:23 Pt became hypotensive after receiving Zosyn. Pt given Benadryl and Solu-medrol. ICU was called, who are aware and agree to evaluate pt for possible ICU admission. 03/28/18 06:[address] La and medical lab assistant, who evaluated pt. State pt can go to Telemetry. Pt will be admitted to Telemetry for sepsis, allergic reaction, and Gout. - Lab Interpretations Lab Results: 03/28/18 02:00 03/28/18 02:00 Lab Results 03/28/18 02:00: Direct Bilirubin 0.2 03/28/18 02:00: Sodium 138, Chloride 104, Potassium 4.2, Carbon Dioxide 21, Anion Gap 17, BUN 21, Creatinine 1.3, Est GFR ( Amer) > 60, Est GFR (Non- Af Amer) 54, Random Glucose 117 H, Uric Acid 9.2 H, Calcium 8.8, Phosphorus 2.7 , Magnesium 1.8, Total Bilirubin 2.3 H, AST 24, ALT 35, Alkaline Phosphatase 58 , Lactate Dehydrogenase 589, Total Creatine Kinase 49, Troponin I 0.03 D, Total Protein 6.7, Albumin 3.9, Globulin 2.9, Albumin/Globulin Ratio 1.4 03/28/18 02:00: pO2 79 H, VBG pH 7.44 H, VBG pCO2 34.0 L, VBG HCO3 23.1, VBG Total CO2 24.1, VBG O2 Sat (Calc) 98.7 H, VBG Base Excess -0.5 L, VBG Potassium 4.2, Sodium 136.0, Chloride 104.0, Glucose 126 H, Lactate 1.7, FiO2 21.0, Venous Blood Potassium 4.2 03/28/18 02:00: PT 14.5 H, INR 1.27 H, APTT 33.7 03/28/18 02:00: WBC 29.3 H* D, RBC 4.64, Hgb 14.6, Hct 42.8, MCV 92.2, MCH 31.5 , MCHC 34.1, RDW 13.1, Plt Count 131, MPV 9.4, Gran % 93.7 H, Lymph % (Auto) 3.1 L, [place] % (Auto) 3.1, Eos % (Auto) 0.0 L, Baso % (Auto) 0.1, Gran # 27.46 H , Lymph # (Auto) 0.9 L, [place] # (Auto) 0.9 H, Eos # (Auto) 0.0, Baso # (Auto) 0.02, Neutrophils % (Manual) 92 H, Band Neutrophils % 2, Lymphocytes % (Manual) 2 L, Monocytes % (Manual) 4, Platelet Evaluation Normal I have reviewed the lab results: Yes - RAD Interpretation Radiology Orders: 03/28/18 01:39 CHEST PORTABLE [RAD] Stat Natural Resources Manager: ED Physician - EKG Interpretation Interpreted by ED Physician: Yes Type: 12 lead EKG - Medication Orders Current Medication Orders: Sodium Chloride (Sodium Chloride 0.9%) 1,000 mls @ 150 mls/hr IV .Q6H40M [facility] Last Admin: 03/28/18 02:56 Dose: 150 mls/hr eMAR Start Stop Document 03/28/18 02:56 BARAK (Rec: 03/28/18 02:56 BARAK [id number]) Intravenous Solution Start Date 03/28/18 Start Time 02:56 Sodium Chloride (Sodium Chloride 0.9%) 1,000 mls @ 100 mls/hr IV .Q10H STA Stop: 03/28/18 16:34 Discontinued Medications Acetaminophen (Tylenol 325mg Tab) 650 mg PO STAT STA Stop: 03/28/18 02:29 Last Admin: 03/28/18 02:57 Dose: 650 mg MAR Pain/Vitals Document 03/28/18 02:57 BARAK (Rec: 03/28/18 02:57 Reg [id number]) Pain Reassessment Is This A Pain ReAssessment? No Sleep Is patient sleeping during reassessment? No Presence of Pain Presence of Pain No Vitals Temperature (97.6 F-99.6 F) 100.8 F Temperature Source Oral Albuterol/Ipratropium (Duoneb 3 Mg/0.5 Mg (3 Ml) Ud) 3 ml IH ONCE STA Stop: 03/28/18 03:49 Last Admin: 03/28/18 04:33 Dose: 3 ml Diphenhydramine HCl (Benadryl) 50 mg IVP ONCE ONE Stop: 03/28/18 04:41 Last Admin: 03/28/18 04:49 Dose: 50 mg IVP Administration Document 03/28/18 04:49 BARAK (Rec: 03/28/18 04:49 Reg [id number]) Charges for Administration # of IVP Administrations 1 Sodium Chloride (Sodium Chloride 0.9%) 1,000 mls @ 999 mls/hr IV .Q1H1M STA Stop: 03/28/18 02:49 Last Admin: 03/28/18 02:07 Dose: 999 mls/hr eMAR Start Stop Document 03/28/18 02:07 BARAK (Rec: 03/28/18 02:07 Reg [id number]) Intravenous Solution Start Date 03/28/18 Start Time 02:07 End Date 03/28/18 End time 02:56 Total Infusion Time 49 Vancomycin HCl (Vancomycin 1gm) 1 gm in 250 mls @ 133.333 mls/hr IVPB STAT STA PRN Reason: Protocol Stop: 03/28/18 04:14 Last Admin: 03/28/18 04:24 Dose: 133.333 mls/hr eMAR Start Stop Document 03/28/18 04:24 BARAK (Rec: 03/28/18 04:24 Reg [id number]) Intravenous Solution Start Date 03/28/18 Start Time 04:24 Piperacillin Sod/Tazobactam Sod (Zosyn 3.375 In Ns 100ml) 100 mls @ 200 mls/hr IV STAT STA PRN Reason: Protocol Stop: 03/28/18 02:51 Last Admin: 03/28/18 02:55 Dose: 200 mls/hr eMAR Start Stop Document 03/28/18 02:55 BARAK (Rec: 03/28/18 02:56 Reg [id number]) Intravenous Solution Start Date 03/28/18 Start Time 02:56 End Date 03/28/18 End time 04:15 Total Infusion Time 79 Sodium Chloride (Sodium Chloride 0.9%) 1,000 mls @ 999 mls/hr IV .Q1H1M STA Stop: 03/28/18 06:23 Last Admin: 03/28/18 06:32 Dose: 999 mls/hr eMAR Start Stop Document 03/28/18 06:32 BARAK (Rec: 03/28/18 06:32 Reg [id number]) Intravenous Solution Start Date 03/28/18 Start Time 05:12 End Date 03/28/18 End time 06:32 Total Infusion Time 80 Ketorolac Tromethamine (Toradol) 30 mg IVP ONCE ONE Stop: 03/28/18 01:50 Last Admin: 03/28/18 02:08 Dose: 30 mg HUDSON Pain Assessment Document 03/28/18 02:08 BARAK (Rec: 03/28/18 02:09 Reg [id number]) Pain Reassessment Is this a pain reassessment? No Sleep Is patient sleeping during reassessment? No Presence of Pain Presence of Pain Yes Pain Scale Used Pain Scale Used Numeric Location Left, Right or Bilateral Bilateral Pain Location Body Site Hand Description Description Throbbing Intensity of Pain at present 8 Acceptable Level of Pain 0 Pain Behavior Irritability Withdrawal from Touch Facial Grimacing Aggravating Factors ADL's IVP Administration Document 03/28/18 02:08 BAARK (Rec: 03/28/18 02:09 BARAK [id number]) Charges for Administration # of IVP Administrations 1 Re-Assess: HUDSON Pain Assessment Document 03/28/18 03:08 BARAK (Rec: 03/28/18 04:32 BARAK [id number]) Pain Reassessment Is this a pain reassessment? Yes Sleep Is patient sleeping during reassessment? No Presence of Pain Presence of Pain Yes Methylprednisolone (Solu-Medrol) 125 mg IVP ONCE ONE Stop: 03/28/18 04:41 Last Admin: 03/28/18 04:49 Dose: 125 mg IVP Administration Document 03/28/18 04:49 [facility] (Rec: 03/28/18 04:49 [facility] [id number]) Charges for Administration # of IVP Administrations 1 Morphine Sulfate (Morphine) 4 mg IVP STAT STA Stop: 03/28/18 02:58 Last Admin: 03/28/18 03:35 Dose: 4 mg MAR Pain Assessment Document 03/28/18 03:35 [facility] (Rec: 03/28/18 04[id number] Reassessment Is this a pain reassessment? No Sleep Is patient sleeping during reassessment? No Presence of Pain Presence of Pain Yes Pain Scale Used Pain Scale Used Numeric Location Left, Right or Bilateral Bilateral Pain Location Body Site Hand Description Description Throbbing Intensity of Pain at present 8 Acceptable Level of Pain 0 Pain Behavior Irritability Withdrawal from Touch Facial Grimacing Aggravating Factors ADL's IVP Administration Document 03/28/18 03:35 [facility] (Rec: 03/28/18 04:32 [id number] Charges for Administration # of IVP Administrations 1 Morphine Sulfate (Morphine) 2 mg IVP STAT STA Stop: 03/28/18 06:33 - Scribe Statement The provider has reviewed the documentation as recorded by the Maricel Best Provider Scribe Attestation: All medical record entries made by the Scribe were at my direction and personally dictated by me. I have reviewed the chart and agree that the record accurately reflects my personal performance of the history, physical exam, medical decision making, and the department course for this patient. I have also personally directed, reviewed, and agree with the discharge instructions and disposition. Disposition/Present on Arrival - Present on Arrival Any Indicators Present on Arrival: No History of DVT/PE: No History of Uncontrolled Diabetes: No Urinary Catheter: No History of Decub. Ulcer: No History Surgical Site Infection Following: None - Disposition Have Diagnosis and Disposition been Completed?: Yes Diagnosis: Sepsis, Gout, COPD (chronic obstructive pulmonary disease) Disposition: HOSPITALIZED Disposition Time: 06:30 Condition: STABLE Discharge Instructions (ExitCare): Sepsis (ED) Referrals: Yousif Palacios MD [Primary Care Provider] - Follow up with primary Forms: [facility] (Welsh)
[2018-03-28 02:14] LABS: BASO # 0.02 K/mm3 (0.0-2.0); BASO % 0.1 % (0.0-3.0); GRAN # 27.46 (1.4-6.5); GRAN % 93.7 % (50.0-68.0); HEMOGLOBIN 14.6 g/dL (14.0-18.0); LYMPH # 0.9 (1.2-3.4); LYMPH % 3.1 % (22.0-35.0); MEAN CELL VOLUME 92.2 fl (80.0-105.0); MEAN CORPUSCULAR HEMOGLOBIN 31.5 pg (25.0-35.0); MEAN CORPUSCULAR HGB CONC 34.1 g/dl (31.0-37.0); MEAN PLATELET VOLUME 9.4 fl (7.0-11.0); MONO # 0.9 (0.1-0.6); MONO % 3.1 % (1.0-6.0); PLATELET COUNT 131 10^3/uL (120.0-450.0); RBC 4.64 10^6/uL (3.5-6.1); RED CELL DISTRIBUTION WIDTH 13.1 % (11.5-14.5)
[2018-03-28 02:16] LABS: WHITE BLOOD COUNT 29.3 10^3/ul (4.5-11.0)
[2018-03-28] MEDS ORDERED: Vancomycin 1gm in NS 250ml 1 GM/250 ML BAG IVPB STA (02:22)
[2018-03-28] MEDS ORDERED: Piperacillin/Tazobact 3.375 gm 100 ML IV STA (02:22)
[2018-03-28 02:23] LABS: VENOUS BLOOD GAS BASE EXCESS -0.5 mmol/L (0.0-2.0); VENOUS BLOOD GAS PO2 79 mm/Hg (30-55); VENOUS BLOOD PH 7.44 (7.32-7.43)
[2018-03-28 02:30] LABS: INR 1.27 (0.93-1.08); PROTHROMBIN TIME 14.5 SECONDS (9.4-12.5)
[2018-03-28 02:31] LABS: PARTIAL THROMBOPLASTIN TIME 33.7 Seconds (25.1-36.5)
[2018-03-28 02:34] LABS: TROPONIN I 0.03 ng/mL
[2018-03-28 02:47] LABS: BAND 2 % (0-2); LYMPHOCYTE 2 % (22.0-35.0); MONOCYTE 4 % (1.0-6.0); NEUTROPHIL 92 % (50.0-70.0)
[2018-03-28 02:48] LABS: PLATELET ESTIMATE NORMAL (NORMAL)
[2018-03-28 02:52] LABS: ALB/GLOB RATIO 1.4 (1.1-1.8); ALBUMIN 3.9 g/dL (3.0-4.8); ALT/SGPT 35 U/L (7-56); AST/SGOT 24 U/L (17-59); BLOOD UREA NITROGEN 21 mg/dL (7-21); CALCIUM 8.8 mg/dL (8.4-10.5); GFR AFRICAN-AMERICAN > 60; GFR NON-AFRICAN AMERICAN 54; URIC ACID 9.2 mg/dL (3.5-8.5)
[2018-03-28] MEDS ORDERED: Morphine 4 mg/ml ISec IVP STA (02:57)
[2018-03-28] MEDS ORDERED: Albuterol-Ipratrop 3 mg / 0.5 (3 ml) UD IH STA (03:48)
[2018-03-28] MEDS ORDERED: DiphenhydrAMINE 50 mg/ml Inj IVP ONE (04:40)
--- NOTE | 2018-03-28 05:42 | CP.PCM.CON ---
<Shyla Alvarez - Last Filed: 03/28/18 06:30> History of Present Illness - History of Present Illness History of Present Illness: PHY-[address] La ICU: hypotension Mr Jeffry Euceda, 72M, PMHx HTN, COPD, gout arthritis, recently admitted to [facility] for COPD exacerbation in February 2018, came in for diffuse body aches for the 2 days. 3 days ago, pt ate chocolates. Then his b/l hand pain and swells, and b/l knee pain. Currently pt could not bear weight due to the pain. He states that he had been taking prednisone that was prescribed by PMD for asthma. He notices wheezes after discharge from hospital 2 weeks ago, but it comes and goes. In the ED, Pt became hypotensive (SBP 80s) after receving Zosyn. Pt given Benadryl and Solu-medrol. When I examine pt, pt is lethargic but easily able to arouse by calling his name. BP was in 110s to 120s. WBC 29.3. Lactate 1.7. TB 2.3 EKG, sinus tachycardia at [address]pm[address] Non-specific ST/T wave changes. ROS Denies LINARES, dizziness, F/C, CP, (+) SOB due to pain. Denies N/V/D/C/dysuria. (+) rash, after zosyn PMH COPD HTN BPH Gout Prostate issue followed by Dr Kaye? (PSA 48.5) TSH 0.04 (03/08/18) PSH cataract surgery, sinus surgery (lost sense of smell afterwards) FH HTN SH Stopped smoking since 1982. denies drink/drug. Live with , ambulate independently ALL - levoflozacin - rash Med reviewed PMD Dr. Marques Past Patient History - Infectious Disease Hx of Infectious Diseases: None - Past Social History Smoking Status: Unknown If Ever Smoked - CARDIAC Hx Hypertension: Yes - PULMONARY Hx Asthma: Yes - NEUROLOGICAL Hx Neurological Disorder: No - HEENT Hx HEENT Problems: No - ENDOCRINE/METABOLIC Hx Endocrine Disorders: No - HEMATOLOGICAL/ONCOLOGICAL Hx Blood Disorders: No - INTEGUMENTARY Hx Dermatological Problems: No - MUSCULOSKELETAL/RHEUMATOLOGICAL Hx Musculoskeletal Disorders: No - GASTROINTESTINAL Hx Gastrointestinal Disorders: No - GENITOURINARY/GYNECOLOGICAL Hx Genitourinary Disorders: No - PSYCHIATRIC Hx Psychophysiologic Disorder: No Hx Substance Use: No - SURGICAL HISTORY Hx Surgeries: No - ANESTHESIA Hx Anesthesia: No Meds Allergies/Adverse Reactions: Allergies Allergy/AdvReac Type Severity Reaction Status Date / Time levofloxacin [From Levaquin] Allergy RASH Verified 03/28/18 01:35 Penicillins Allergy RASH Verified 03/28/18 06:48 - Medications Medications: Current Medications Sodium Chloride (Sodium Chloride 0.9%) 1,000 mls @ 150 mls/hr IV .Q6H40M [facility] Last Admin: 03/28/18 02:56 Dose: 150 mls/hr Sodium Chloride (Sodium Chloride 0.9%) 1,000 mls @ 999 mls/hr IV .Q1H1M STA Stop: 03/28/18 06:23 Physical Exam - Constitutional Appears: No Acute Distress - Head Exam Head Exam: ATRAUMATIC, NORMAL INSPECTION, NORMOCEPHALIC - Eye Exam Eye Exam: EOMI, Normal appearance, PERRL. absent: Scleral icterus Pupil Exam: NORMAL ACCOMODATION - ENT Exam ENT Exam: Mucous Membranes Moist - Neck Exam Additional comments: supple - Respiratory Exam Respiratory Exam: Clear to Auscultation Bilateral. absent: Rales, Rhonchi, Wheezes - Cardiovascular Exam Cardiovascular Exam: REGULAR RHYTHM, +S1, +S2 - GI/Abdominal Exam GI & Abdominal Exam: Normal Bowel Sounds, Soft. absent: Distended, Guarding, Tenderness - Extremities Exam Extremities exam: Positive for: pedal pulses present. Negative for: calf tenderness, pedal edema Additional comments: pain on b/l shoulder, hands, knees, ankles, toes - Neurological Exam Neurological exam: Alert, Oriented x3 - Psychiatric Exam Psychiatric exam: Normal Affect, Normal Mood - Skin Skin Exam: Dry, Urticaria (circular and nummular rashes in all body sparing soles and palms, 1mm-5mm) Results - Vital Signs Recent Vital Signs: Last Vital Signs Temp 98.3 F 03/28/18 04:00 Pulse 106 H 03/28/18 05:41 Resp 17 03/28/18 05:41 BP 106/55 L 03/28/18 05:41 Pulse Ox 96 03/28/18 05:41 - Labs Result Diagrams: 03/28/18 02:00 03/28/18 02:00 Labs: Laboratory Results - last 24 hr 06/01/1003/28/18 03/28/18 02:00 02:00 02:00 WBC 29.3 H* D RBC 4.64 Hgb 14.6 Hct 42.8 MCV 92.2 MCH 31.5 MCHC 34.1 RDW 13.1 Plt Count 131 MPV 9.4 Gran % 93.7 H Lymph % (Auto) 3.1 L Johnson % (Auto) 3.1 Eos % (Auto) 0.0 L Baso % (Auto) 0.1 Gran # 27.46 H Lymph # (Auto) 0.9 L Johnson # (Auto) 0.9 H Eos # (Auto) 0.0 Baso # (Auto) 0.02 Neutrophils % (Manual) 92 H Band Neutrophils % 2 Lymphocytes % (Manual) 2 L Monocytes % (Manual) 4 Platelet Evaluation Normal PT 14.5 H INR 1.27 H APTT 33.7 pO2 79 H VBG pH 7.44 H VBG pCO2 34.0 L VBG HCO3 23.1 VBG Total CO2 24.1 VBG O2 Sat (Calc) 98.7 H VBG Base Excess -0.5 L VBG Potassium 4.2 Sodium 136.0 Chloride 104.0 Glucose 126 H Lactate 1.7 FiO2 21.0 Potassium Carbon Dioxide Anion Gap BUN Creatinine Est GFR ( Amer) Est GFR (Non-Af Amer) Random Glucose Uric Acid Calcium Phosphorus Magnesium Total Bilirubin AST ALT Alkaline Phosphatase Lactate Dehydrogenase Total Creatine Kinase Troponin I Total Protein Albumin Globulin Albumin/Globulin Ratio Venous Blood Potassium 4.2 03/28/18 02:00 WBC RBC Hgb Hct MCV MCH MCHC RDW Plt Count MPV Gran % Lymph % (Auto) Johnson % (Auto) Eos % (Auto) Baso % (Auto) Gran # Lymph # (Auto) Johnson # (Auto) Eos # (Auto) Baso # (Auto) Neutrophils % (Manual) Band Neutrophils % Lymphocytes % (Manual) Monocytes % (Manual) Platelet Evaluation PT INR APTT pO2 VBG pH VBG pCO2 VBG HCO3 VBG Total CO2 VBG O2 Sat (Calc) VBG Base Excess VBG Potassium Sodium 138 Chloride 104 Glucose Lactate FiO2 Potassium 4.2 Carbon Dioxide 21 Anion Gap 17 BUN 21 Creatinine 1.3 Est GFR ( Amer) > 60 Est GFR (Non-Af Amer) 54 Random Glucose 117 H Uric Acid 9.2 H Calcium 8.8 Phosphorus 2.7 Magnesium 1.8 Total Bilirubin 2.3 H AST 24 ALT 35 Alkaline Phosphatase 58 Lactate Dehydrogenase 589 Total Creatine Kinase 49 Troponin I 0.03 D Total Protein 6.7 Albumin 3.9 Globulin 2.9 Albumin/Globulin Ratio 1.4 Venous Blood Potassium Assessment & Plan - Assessment and Plan (Free Text) Plan: Hypotension likely due to allergic reaction to zosyn - resolve Gout flair Tachycardia likely reactive to pain - BP 110s - 120s - VS stable, - Continue tele monitoring. patient does not meet criteria to ICU. - VS q4 - neuro check q4 s/r/d/w Dr. La <Bessie GARCIA,Gilberto - Last Filed: 03/29/18 11:07> Meds - Medications Medications: Current Medications Albuterol/Ipratropium (Duoneb 3 Mg/0.5 Mg (3 Ml) Ud) 3 ml IH [id number] PRN PRN Reason: Wheezing Last Admin: 03/28/18 23:55 Dose: 3 ml Allopurinol (Zyloprim) 100 mg PO DAILY [facility] Last Admin: 03/29/18 10:54 Dose: 100 mg Arformoterol Tartrate (Brovana) 15 mcg IH [id number] [facility] Last Admin: 03/29/18 07:37 Dose: 15 mcg Budesonide (Pulmicort Respules) 1 mg IH [id number] [facility] Last Admin: 03/29/18 07:37 Dose: 1 mg Colchicine (Colocrys) 0.6 mg PO DAILY [facility] Last Admin: 03/29/18 10:54 Dose: 0.6 mg Enoxaparin Sodium (Lovenox) 40 mg SC DAILY BLANK PRN Reason: Protocol Last Admin: 03/29/18 11:01 Dose: Not Given Famotidine (Pepcid) 40 mg PO HS [facility] Last Admin: 03/28/18 22:42 Dose: 40 mg Aztreonam (Azactam 1 Gm) 100 mls @ 100 mls/hr IVPB Q8 BLANK PRN Reason: Protocol Stop: 04/06/18 14:01 Last Admin: 03/29/18 06:02 Dose: 100 mls/hr Doxycycline Hyclate 100 mg/ (Sodium Chloride) 100 mls @ 100 mls/hr IVPB Q12 BLANK PRN Reason: Protocol Stop: 06/12/18 22:01 Last Admin: 03/29/18 10:52 Dose: 100 mls/hr Linezolid (Zyvox 600mg/300ml D5w) 600 mg in 300 mls @ 200 mls/hr IVPB Q12 [facility] PRN Reason: Protocol Stop: 04/06/18 22:01 Last Admin: 03/28/18 23:54 Dose: 200 mls/hr Loratadine (Claritin) 10 mg PO DAILY [facility] Last Admin: 03/29/18 10:54 Dose: 10 mg Losartan Potassium (Cozaar) 50 mg PO DAILY [facility] Last Admin: 03/29/18 10:54 Dose: 50 mg Methylprednisolone (Solu-Medrol) 40 mg IVP Q12 [facility] Last Admin: 03/29/18 10:53 Dose: 40 mg Montelukast Sodium (Singulair) 10 mg PO DAILY [facility] Last Admin: 03/29/18 11:05 Dose: 10 mg Results - Vital Signs Recent Vital Signs: Last Vital Signs Temp 97.5 F L 03/29/18 08:13 Pulse 95 H 03/29/18 10:54 Resp 19 03/29/18 08:13 BP 119/77 03/29/18 10:54 Pulse Ox 100 03/29/18 08:13 - Labs Result Diagrams: 03/28/18 02:00 03/28/18 02:00 Attending/Attestation - Attestation Notes (Text): -I agree with the above ICU consult note completed by the resident physician.
[2018-03-28] MEDS ORDERED: Morphine 2 mg/2 mL syringe IVP STA (06:32)
[2018-03-28 07:19] LABS: URINE BILIRUBIN SMALL (NEGATIVE); URINE BLOOD SMALL (NEGATIVE); URINE GLUCOSE (UA) NEGATIVE (NEGATIVE); URINE LEUKOCYTE ESTERASE NEGATIVE Leu/uL (NEGATIVE); URINE PROTEIN 100 mg/dL (<30 mg/dL)
[2018-03-28 07:25] LABS: URINE APPEARANCE CLEAR (CLEAR); URINE COLOR YELLOW (YELLOW)
[2018-03-28 07:41] LABS: URINE BACTERIA SMALL (NEG)
[2018-03-28 07:42] LABS: URINE AMORPHOUS SEDIMENT FEW; URINE HYALINE CAST 0 - 2 /hpf
[2018-03-28] MEDS ORDERED: Albuterol HFA 90 mcg/actuation (8 g) IH PRN (08:35)
[2018-03-28] MEDS: MethylPREDNISolone 40 mg Vial IVP SCH ×2 (09:47→22:42)
[2018-03-28] MEDS ORDERED: Fluticasone-Salmeterol 500-50mcg Diskus INH SCH (10:00)
--- NOTE | 2018-03-28 10:34 | RAD ---
HISTORY: Sepsis Patient COMPARISON: Comparison chest 03/07/2018 FINDINGS: LUNGS: Suspect minor bibasilar atelectasis. Elevation right hemidiaphragm possibly due to eventration. The PLEURA: No significant pleural effusion identified, no pneumothorax apparent. CARDIOVASCULAR: Normal. OSSEOUS STRUCTURES: No significant abnormalities. VISUALIZED UPPER ABDOMEN: Normal. OTHER FINDINGS: None. IMPRESSION: Suspect minor bibasilar atelectasis
[2018-03-28] MEDS: Aztreonam 1 Gm in NS 100mL 100 ML IVPB SCH ×2 (15:24→23:53)
--- NOTE | 2018-03-28 15:37 | CARD ---
APPROVED REPORT EKG Measurement Heart [id number] <Conclusion> Sinus tachycardia Otherwise normal ECG
--- NOTE | 2018-03-28 22:09 | CON ---
DATE: The patient is seen in the emergency room. CHIEF COMPLAINT: Weakness and difficulty with his breathing, with shortness of breath times several days. HISTORY OF PRESENT ILLNESS: This is a 72-year-old male with a history of hypertension, chronic obstructive lung disease, asthma, gout, who is admitted to the emergency room, was found to have a temperature, tachycardia, was given Zosyn and developed a rash in the emergency room, and Infectious Disease consultation requested. REVIEW OF SYSTEMS: Revealed the patient is having cough, shortness of breath. No chest pain. No abdominal pain, diarrhea or constipation. No dysuria or frequency. No headaches or blurred vision. The 12-point review of systems performed. PAST MEDICAL HISTORY: Reveals the patient to be with hypertension, chronic obstructive lung disease, gout, asthma. Past medical history is significant for arthritis in addition to the gout, and COPD and asthma. PAST SURGICAL HISTORY: Noncontributory. ALLERGIES: THE PATIENT IS ALLERGIC TO LEVAQUIN, DEVELOPS A RASH; AND DEVELOPED A RASH TO THE ZOSYN IN THE EMERGENCY ROOM, SIGNIFICANT MACULOPAPULAR RASH, DID NOT HAVE IT WHEN HE CAME IN. MEDICATIONS AT HOME: Include the patient to be on prednisone at home at 10 mg daily, colchicine, Symbicort inhalers, Cozaar. PHYSICAL EXAMINATION: GENERAL: On exam, he is in bed. He is awake and answering questions appropriately; was seen earlier in the emergency room. VITAL SIGNS: With a temperature of 100.8; heart rate of 113, it was up to 126; respiratory rate of 18, with blood pressure of 89/57 which is up to 116/60. O2 saturation is 97%, it was down to 94% O2 saturation on room air. HEENT: Unremarkable. NECK: Supple. LUNGS: Have decreased breath sounds. HEART: Normal S1 and S2. ABDOMEN: Soft, nontender. No rebound or guarding. LABORATORY DATA: Reveals a white count is 29,300, hemoglobin of 14, platelets of 131. The patient has 93% granulocytosis. Coagulation is noted. Chemistries reveals a BUN of 21, creatinine of 1.3. The patient's creatinine had been running around 1.1 to 1.2. Urinalysis is small bacteria, 1 to 3 wbc's. Microbiology is pending. The patient had a chest x-ray that was read by Dr. Toñito Jaimes, bibasilar atelectasis and elevated right hemidiaphragm, and patient had recent hospital visit last month and the patient was hospitalized for almost 5 days. ASSESSMENT AND PLAN: This is a 72-year-old male with asthma, hypertension, chronic obstructive pulmonary disease and gout, admitted with fever, tachycardia, shortness of breath and white count elevation with a questionable infiltrate and hypotension and hypoxia. Severe sepsis; has been in a hospital recently with healthcare-associated pneumonia, with ALLERGIC TO LEVAQUIN, HAD A RASH TO ZOSYN. We will treat the patient with vancomycin, Azactam, doxycycline, pending blood, urine and sputum culture, and procalcitonin, and we will make further recommendations upon availability. Patient with renal insufficiency and had hypotension that responded to fluids. We will treat the patient rather with Zyvox because of the renal insufficiency, Azactam and doxycycline, and we will make further recommendations pending blood, urine and sputum cultures, procalcitonin, and start Zyvox, Azactam and doxycycline. Malvin Bear MD
[2018-03-28] MEDS: Linezolid 600 mg in D5W 300 ml 600 MG/300 ML BAG IVPB SCH (23:54)
[2018-03-28] MEDS: Arformoterol 15 mcg/2 ml Inh Sol IH SCH (23:55)
[2018-03-28] MEDS: Budesonide 0.5 mg/2 ml Inhal Susp UD IH SCH (23:55)
[2018-03-28] MEDS: Albuterol-Ipratrop 3 mg / 0.5 (3 ml) UD IH PRN (23:55)
--- NOTE | 2018-03-29 05:01 | CON ---
DATE: 03/28/2018 PULMONARY CONSULTATION REFERRING PHYSICIAN: Dr. Roper REASON FOR CONSULTATION: Chronic lung disease, may have sleep apnea syndrome. HISTORY OF PRESENT ILLNESS: This is a 72-year-old gentleman known to me for previous admission, had a chronic lung disease, hypertension, suspected sleep apnea syndrome, history of gastroesophageal reflux disease who recently discharged home, was not feeling well for last few days, having multiple joint discomfort and pain, apparently been lying in the reclining chair, had a fall from reclining chair, came into emergency room. Also, complaining about a fever apparently received Zosyn end up with diffuse body rash and hypertension. Presently sleepy, arousable, examined in the emergency room has some cough and shortness breath. No chest pain. No nausea, no vomiting. No diarrhea with multiple joint pain. PAST MEDICAL HISTORY: As per history of present illness. Also hypertension, chronic lung disease. ALLERGIES: TO LEVAQUIN, SO NOW PROBABLY HAVE ALLERGY TO PENICILLIN. SOCIAL HISTORY: He stopped smoking many years ago. Denies any alcohol use. MEDICATIONS: He is on Azactam 1 g IV every 8 hours, Brovana inhaled twice a day, Claritin 10 mg daily, colchicine 0.6 mg p.r.n., Cozaar 50 mg daily, doxycycline 100 mg twice a day, DuoNeb every 6 hour p.r.n., Pepcid 40 mg daily, Pulmicort inhaled twice a day, Singulair 10 mg daily, Solu-Medrol 40 mg twice a day, Zyvox 600 mg every 12 hour. REVIEW OF SYSTEM: No headache, no rhinitis. Mild cough and shortness of breath. No chest pain. No nausea, no vomiting. No diarrhea. Complaining of multiple joint pain and also has a diffuse rash from the face to the toes. PHYSICAL EXAMINATION: GENERAL: Lying in the bed in no acute distress. VITAL SIGNS: T max is 100.8, heart rate is 97, respiratory rate is 20, blood pressure 116/66, pulse ox of 98%, 2 liters nasal cannula. HEENT: Moist mucous membrane. Crowded airway. Mallampati score is 4. NECK: Supple. No JVD. LUNGS: Have a fair airflow with few rhonchi. HEART: S1 and S1. ABDOMEN: Soft, nontender, no organomegaly. EXTREMITIES: No edema. Has a multiple joint tenderness. Has a diffuse rash. NEUROLOGIC: Awake and alert. Follows simple commands. LABORATORY DATA: Shows hemoglobin 14.6, hematocrit 42.8, WBC 29,000, platelet is 131. INR 1.27. PTT 34. ABG show pH 7.44, pCO2 of 34, O2 of 74% that is at room air. Sodium 138, potassium 4.2, chloride 104, bicarbonate 21, BUN 21, creatinine 1.3, glucose 117, uric acid 9.2, calcium 8.8, magnesium 1.8, total bili 2.3, of 0.2, AST 24, ALT 35, alk phos is 58. Albumin is 3.9. Procalcitonin is 18. Venous blood for potassium is 4.2. Urinalysis shows wbc 2 to 5, rbc 1 to 3, bacteria was small. Chest x-ray shows suspected minor bibasilar atelectasis versus pneumonia. IMPRESSION AND PLAN: Chronic obstructive lung disease, basilar infiltrate, history of gastroesophageal reflux disease with high uric acid, now developed rash from Zosyn; Zosyn has been already discontinued. The patient given steroids, started on broad-spectrum antibiotics. Procalcitonin is high. Gastric prophylaxis, deep vein thrombosis prophylaxis. Sleep apnea precaution. Careful with sedation. Thank you and we will follow with you. Morgan Coughlin MD
[2018-03-29] MEDS: Aztreonam 1 Gm in NS 100mL 100 ML IVPB SCH ×3 (06:02→21:20)
[2018-03-29] MEDS: Arformoterol 15 mcg/2 ml Inh Sol IH SCH ×2 (07:37→19:32)
[2018-03-29] MEDS: Budesonide 0.5 mg/2 ml Inhal Susp UD IH SCH ×2 (07:37→19:35)
[2018-03-29] MEDS: MethylPREDNISolone 40 mg Vial IVP SCH ×2 (10:53→21:19)
[2018-03-29] MEDS: Enoxaparin 40 mg Syringe SC SCH ×2 (10:53→11:01)
--- NOTE | 2018-03-29 12:15 | CP.PCM.PN ---
Subjective - Date & Time of Evaluation Date of Evaluation: 03/29/18 Time of Evaluation: 10:55 - Subjective Subjective: Breathing better and rash on his anterior chest and arms is improving. No fevers , but still having joint pains on the hands. Objective - Vital Signs/Intake and Output Vital Signs (last 24 hours): Temp Pulse Resp BP Pulse Ox 97.5 F L 95 H 19 119/77 100 03/29/18 08:13 03/29/18 10:54 03/29/18 08:13 03/29/18 10:54 03/29/18 08:13 Intake and Output: 03/29/18 03/29/18 06:59 18:59 Intake Total 670 Balance 670 - Medications Medications: Current Medications Albuterol/Ipratropium (Duoneb 3 Mg/0.5 Mg (3 Ml) Ud) 3 ml IH [id number] PRN PRN Reason: Wheezing Last Admin: 03/28/18 23:55 Dose: 3 ml Allopurinol (Zyloprim) 100 mg PO DAILY [facility] Last Admin: 03/29/18 10:54 Dose: 100 mg Arformoterol Tartrate (Brovana) 15 mcg IH [id number] [facility] Last Admin: 03/29/18 07:37 Dose: 15 mcg Budesonide (Pulmicort Respules) 1 mg IH [id number] [facility] Last Admin: 03/29/18 07:37 Dose: 1 mg Colchicine (Colocrys) 0.6 mg PO DAILY [facility] Last Admin: 03/29/18 10:54 Dose: 0.6 mg Enoxaparin Sodium (Lovenox) 40 mg SC DAILY [facility] PRN Reason: Protocol Last Admin: 03/29/18 11:01 Dose: Not Given Famotidine (Pepcid) 40 mg PO HS [facility] Last Admin: 03/28/18 22:42 Dose: 40 mg Aztreonam (Azactam 1 Gm) 100 mls @ 100 mls/hr IVPB Q8 BLANK PRN Reason: Protocol Stop: 04/06/18 14:01 Last Admin: 03/29/18 06:02 Dose: 100 mls/hr Doxycycline Hyclate 100 mg/ (Sodium Chloride) 100 mls @ 100 mls/hr IVPB Q12 BLANK PRN Reason: Protocol Stop: 04/06/18 22:01 Last Admin: 03/29/18 10:52 Dose: 100 mls/hr Linezolid (Zyvox 600mg/300ml D5w) 600 mg in 300 mls @ 200 mls/hr IVPB Q12 [facility] PRN Reason: Protocol Stop: 04/06/18 22:01 Last Admin: 03/28/18 23:54 Dose: 200 mls/hr Loratadine (Claritin) 10 mg PO DAILY [facility] Last Admin: 03/29/18 10:54 Dose: 10 mg Losartan Potassium (Cozaar) 50 mg PO DAILY [facility] Last Admin: 03/29/18 10:54 Dose: 50 mg Methylprednisolone (Solu-Medrol) 40 mg IVP Q12 [facility] Last Admin: 03/29/18 10:53 Dose: 40 mg Montelukast Sodium (Singulair) 10 mg PO DAILY [facility] Last Admin: 03/29/18 11:05 Dose: 10 mg - Labs Labs: PT 14.5 SECONDS (9.4-12.5) H 03/28/18 02:00 INR 1.27 (0.93-1.08) H 03/28/18 02:00 APTT 33.7 Seconds (25.1-36.5) 03/28/18 02:00 - Constitutional Appears: Chronically Ill - Head Exam Head Exam: NORMAL INSPECTION - ENT Exam ENT Exam: Mucous Membranes Moist - Neck Exam Neck Exam: absent: Meningismus - Respiratory Exam Respiratory Exam: Decreased Breath Sounds - Cardiovascular Exam Cardiovascular Exam: +S1, +S2 - GI/Abdominal Exam GI & Abdominal Exam: Soft. absent: Tenderness - Extremities Exam Additional comments: both hands with swollen metacarpophalangeal joints - Skin Additional comments: maculopapular rash is improving on the anterior chest and arms Assessment and Plan - Assessment and Plan (Free Text) Plan: Assessment severe sepsis due to bilateral lower lobe HCAP, slowly improving maculopapular rash probably from Zosyn, slowly improving gout HTN COPD GERD Plan Continue Zyvox, Azactam and Doxycycline to complete 4-7 days of therapy (Day 2 today) follow up plan for gout - patient would probably need Colchicine will continue to monitor clinically will continue to monitor rash
[2018-03-29] MEDS: Linezolid 600 mg in D5W 300 ml 600 MG/300 ML BAG IVPB SCH ×2 (12:17→21:51)
--- NOTE | 2018-03-30 00:47 | PN ---
DATE: 03/29/2018 PULMONRY PROGRESS NOTE REFERRING PHYSICIAN: Mary Roper MD. SUBJECTIVE: He is sitting in the side of the bed, feels much better. Still has a rash with itching, but improved. Not much cough. No nausea, no vomiting, no diarrhea. No leg pain or leg swelling. OBJECTIVE: GENERAL: In no distress. VITAL SIGNS: Temperature is 98, heart rate is 106, respiratory rate is 20, blood pressure 136/81, pulse ox 100% on nasal cannula. HEENT: Moist mucous membrane. Crowded airway. NECK: Supple. No JVD. LUNGS: Have a fair airflow with rhonchi. HEART: S1 and S2. ABDOMEN: Soft, nontender, no organomegaly. EXTREMITIES: No edema. NEUROLOGIC: Awake, alert, and follows simple command. MEDICATIONS: He is on Azactam 1 g IV every 8 hour, Brovana inhaled twice a day, Claritin 10 mg daily, colchicine 0.6 mg daily, Cozaar 50 mg daily, doxycycline 100 mg twice a day, DuoNeb every 6 hour p.r.n., Lovenox 40 mg daily, Pepcid 40 mg at bedtime, Pulmicort inhaled twice a day, Singulair 10 mg daily, Solu-Medrol 40 mg every 12 hour, allopurinol 100 mg daily, Zyvox 600 mg every 12 hour. LABORATORY DATA: Reviewed, shows procalcitonin is 18. Microbiology: Blood culture, urine culture, there is no growth. IMPRESSION AND PLAN: Chronic obstructive lung disease, bibasilar infiltrate, history of gastroesophageal reflux disease, also has a history of gout, pneumonia. Developed rash with Zosyn, which has been discontinued. Rash is slowly improving. Antibiotics as per Infectious Diseases. Bronchodilator. Sleep apnea precaution. Gastric prophylaxis, deep venous thrombosis prophylaxis. Follow up labs in the morning. Thank you and we will follow with you. Morgan Coughlin MD
--- NOTE | 2018-03-30 01:28 | PN ---
DATE: 03/29/2018 SUBJECTIVE: Patient was seen and examined at the bedside, looking comfortable. Still complaining about rash on the body and the hands are swollen, warm and red. No fever. No chills. No headache. No dizziness. PHYSICAL EXAMINATION: VITAL SIGNS: Temperature 97.5,pulse 95, respiratory rate 19, blood pressure 119/77, pulse oximetry 100. HEENT: Head: Normocephalic, atraumatic. Eyes: PERRLA. Extraocular muscles intact. Conjunctivae clear. Nose patent. NECK: Supple. No carotid bruit. No JVD or thyromegaly. CHEST: Bilaterally symmetrical. HEART: S1 and S2 positive. LUNGS: Clear to auscultation. ABDOMEN: Soft, Bowel sounds present. No organomegaly. EXTREMITIES: No edema. No cyanosis. NEUROLOGICAL: The patient is awake and alert, moving all four extremities. No focal deficit. MEDICATIONS: Allopurinol, Brovana, Pulmicort, colchicine, Lovenox, Pepcid, Azactam, doxycycline, Zyvox, Claritin, Cozaar, Solu-Medrol, and Singulair. LABORATORY DATA: White blood cell is 29.3, hemoglobin 14.6, hematocrit 42.8, platelets 131. Sodium 138, potassium 4.2, BUN 21, creatinine 1.3, glucose 117, uric acid 9.2, bilirubin 2.3. ASSESSMENT AND PLAN: Mr. Jeffry Denson is a 72-year-old male with leukocytosis; gouty arthritis; hyperglycemia; abnormal liver function test; increased prolactin; rule out sepsis; proteinuria; ketonuria;hematuria; urinary tract infection, seen by Dr. Deejay Galarza, Infectious Disease; severe sepsis due to bilateral lower lobe healthcare-associated pneumonia, slowly improving; maculopapular rash probably from Zosyn, slowly improving; hypertension; chronic obstructive pulmonary disease; gastroesophageal reflux disease; dyspepsia. According to ID, continue Zyvox, Azactam and doxycycline to complete 4 to 7 days of therapy. Today is day second. Getting colchicine. Continue monitoring rash clinically. Seen by Dr. Coughlin, computer science teacher, critical care. History of chronic obstructive lung disease. Patient is given steroid, started on broad-spectrum antibiotics. We will continue tapering the steroid. Sleep apnea precautions. Careful with sedation. We will follow up. Mary Roper MD
[2018-03-30] MEDS: Aztreonam 1 Gm in NS 100mL 100 ML IVPB SCH ×3 (05:15→22:27)
[2018-03-30 07:02] LABS: HEMOGLOBIN 12.4 g/dL (14.0-18.0); MEAN CELL VOLUME 90.6 fl (80.0-105.0); MEAN CORPUSCULAR HEMOGLOBIN 30.8 pg (25.0-35.0); MEAN PLATELET VOLUME 10.3 fl (7.0-11.0); RBC 4.03 10^6/uL (3.5-6.1); RED CELL DISTRIBUTION WIDTH 12.9 % (11.5-14.5); WHITE BLOOD COUNT 17.5 10^3/ul (4.5-11.0)
[2018-03-30] MEDS: Arformoterol 15 mcg/2 ml Inh Sol IH SCH ×2 (07:27→20:31)
[2018-03-30] MEDS: Budesonide 0.5 mg/2 ml Inhal Susp UD IH SCH ×2 (07:28→20:32)
[2018-03-30 07:35] LABS: IRON 76 ug/dL (45-180)
[2018-03-30 07:37] LABS: ALB/GLOB RATIO 1.1 (1.1-1.8); ALBUMIN 3.3 g/dL (3.0-4.8); ALT/SGPT 41 U/L (7-56); AST/SGOT 38 U/L (17-59); BLOOD UREA NITROGEN 26 mg/dL (7-21); CALCIUM 8.2 mg/dL (8.4-10.5); GFR AFRICAN-AMERICAN > 60; GFR NON-AFRICAN AMERICAN > 60; HDL CHOLESTEROL 37 mg/dL (29-60)
[2018-03-30 07:41] LABS: TOTAL IRON BINDING CAPACITY 212 ug/dL (261-462)
[2018-03-30 07:42] LABS: LDL CHOLESTEROL 86 mg/dL (0-129)
[2018-03-30 08:07] LABS: % IRON SATURATION 36 % (20-55)
[2018-03-30] MEDS: Linezolid 600 mg in D5W 300 ml 600 MG/300 ML BAG IVPB SCH ×2 (09:23→22:27)
[2018-03-30] MEDS: MethylPREDNISolone 40 mg Vial IVP SCH ×2 (09:24→22:28)
[2018-03-30] MEDS: Enoxaparin 40 mg Syringe SC SCH (09:24)
--- NOTE | 2018-03-30 12:46 | CP.PCM.PN ---
Subjective - Date & Time of Evaluation Date of Evaluation: 03/30/18 Time of Evaluation: 10:40 - Subjective Subjective: No fevers, breathing better, still with pain in the joints of the hands Objective - Vital Signs/Intake and Output Vital Signs (last 24 hours): Temp Pulse Resp BP Pulse Ox 98.2 F 106 H 18 121/75 98 03/30/18 06:00 03/30/18 06:00 03/30/18 06:00 03/30/18 06:00 03/30/18 06:00 Intake and Output: 03/29/18 03/30/18 18:59 06:59 Intake Total 800 Output Total 200 Balance 600 - Medications Medications: Current Medications Albuterol/Ipratropium (Duoneb 3 Mg/0.5 Mg (3 Ml) Ud) 3 ml IH [id number] PRN PRN Reason: Wheezing Last Admin: 03/28/18 23:55 Dose: 3 ml Allopurinol (Zyloprim) 100 mg PO DAILY [facility] Last Admin: 03/29/18 10:54 Dose: 100 mg Arformoterol Tartrate (Brovana) 15 mcg IH [id number] [facility] Last Admin: 03/29/18 19:32 Dose: 15 mcg Budesonide (Pulmicort Respules) 1 mg IH [id number] [facility] Last Admin: 03/29/18 19:35 Dose: 1 mg Colchicine (Colocrys) 0.6 mg PO DAILY [facility] Last Admin: 03/29/18 10:54 Dose: 0.6 mg Enoxaparin Sodium (Lovenox) 40 mg SC DAILY [facility] PRN Reason: Protocol Last Admin: 03/29/18 11:01 Dose: Not Given Famotidine (Pepcid) 40 mg PO HS [facility] Last Admin: 03/29/18 21:19 Dose: 40 mg Aztreonam (Azactam 1 Gm) 100 mls @ 100 mls/hr IVPB Q8 BLANK PRN Reason: Protocol Stop: 04/06/18 14:01 Last Admin: 03/30/18 05:15 Dose: 100 mls/hr Doxycycline Hyclate 100 mg/ (Sodium Chloride) 100 mls @ 100 mls/hr IVPB Q12 BLANK PRN Reason: Protocol Stop: 04/06/18 22:01 Last Admin: 03/29/18 21:51 Dose: 100 mls/hr Linezolid (Zyvox 600mg/300ml D5w) 600 mg in 300 mls @ 200 mls/hr IVPB Q12 [facility] PRN Reason: Protocol Stop: 04/06/18 22:01 Last Admin: 03/29/18 21:51 Dose: 200 mls/hr Loratadine (Claritin) 10 mg PO DAILY [facility] Last Admin: 03/29/18 10:54 Dose: 10 mg Losartan Potassium (Cozaar) 50 mg PO DAILY [facility] Last Admin: 03/29/18 10:54 Dose: 50 mg Methylprednisolone (Solu-Medrol) 40 mg IVP Q12 [facility] Last Admin: 03/29/18 21:19 Dose: 40 mg Montelukast Sodium (Singulair) 10 mg PO DAILY [facility] Last Admin: 03/29/18 11:05 Dose: 10 mg - Labs Labs: PT 14.5 SECONDS (9.4-12.5) H 03/28/18 02:00 INR 1.27 (0.93-1.08) H 03/28/18 02:00 APTT 33.7 Seconds (25.1-36.5) 03/28/18 02:00 - Constitutional Appears: Non-toxic, Chronically Ill - Head Exam Head Exam: NORMAL INSPECTION - Neck Exam Neck Exam: absent: Meningismus - Respiratory Exam Respiratory Exam: Decreased Breath Sounds - Cardiovascular Exam Cardiovascular Exam: +S1, +S2 - GI/Abdominal Exam GI & Abdominal Exam: Soft. absent: Tenderness Assessment and Plan - Assessment and Plan (Free Text) Plan: Assessment severe sepsis due to bilateral lower lobe HCAP, slowly improving maculopapular rash probably from Zosyn, slowly improving gout HTN COPD GERD Plan Continue Zyvox, Azactam and Doxycycline to complete 4-7 days of therapy (Day 3 today) follow up plan for gout - patient would probably need Colchicine - follow up plans of PCP will continue to monitor clinically will continue to monitor rash which has improved
[2018-03-30 13:02] LABS: FOLATE 9.4 ng/mL
--- NOTE | 2018-03-31 01:16 | PN ---
DATE: 03/30/2018 PULMONARY PROGRESS NOTE REFERRING PHYSICIAN: Mary Roper MD SUBJECTIVE: Patient is sitting at side of the bed, feels better. No headache, no rhinitis. Breathing is better. Rash is improving. No nausea, no vomiting, no diarrhea. Has multiple joint pain. OBJECTIVE: GENERAL: In no acute distress. VITAL SIGNS: Temperature is 98, heart is 107, respiratory rate is 22, blood pressure 166/85, pulse of 98% on 2 liters nasal cannula. HEENT: Moist mucous membrane. Crowded airway. Mallampati score is 4. NECK: Supple. No JVD. LUNGS: Have fair airflow with rhonchi. HEART: S1 and S2. ABDOMEN: Soft, nontender. No organomegaly. EXTREMITIES: No edema. Has multiple joint tenderness and swelling. NEUROLOGIC: Awake, alert, follows simple command. MEDICATIONS: He is on Azactam 1 g IV every 8 hour, Brovana inhaled twice a day, Claritin 10 mg daily, colchicine 0.6 mg daily, Cozaar 50 mg daily, doxycycline 100 mg twice a day, DuoNeb every 6 hour p.r.n., Lovenox 40 mg daily, vitamin D p.o. daily, Pepcid 40 mg at bedtime, Pulmicort inhaled twice a day, Singulair 10 mg daily, Solu-Medrol 40 mg every 12 hour, allopurinol 100 mg daily, Zyvox 600 mg twice a day. LABORATORY DATA: Shows hemoglobin 12.4, hematocrit 36.5, WBC 17.5, platelet count is 151. Sodium 144, potassium 4.2, chloride 112, bicarbonate 22, BUN 26, creatinine 1.1, glucose 112, calcium is 8.2. AST 38, ALT 41, alk phos is 64, albumin is 3.3, cholesterol is 147. TSH 0.15. Microbiology: Blood culture, urine culture, there is no growth. IMPRESSION AND PLAN: Chronic obstructive lung disease, basilar infiltrate, history of gastroesophageal reflux disease, history of gout, pneumonia, Levaquin and penicillin rash. Pulmonary point of view, doing okay. Continue bronchodilator, keep head at 45 degrees. Continue colchicine, allopurinol, steroids, antibiotics. Sleep apnea precaution. Gastric prophylaxis. Deep venous thrombosis prophylaxis. Fall precaution. Thank you and we will follow with you. Morgan Coughlin MD [facility] # [id number]
[2018-03-31] MEDS: Aztreonam 1 Gm in NS 100mL 100 ML IVPB SCH ×3 (05:52→22:16)
--- NOTE | 2018-03-31 08:43 | PN ---
DATE: 03/30/2018 SUBJECTIVE: The patient is a 72-year-old male. The patient is seen and examined at the bedside. Cough is better. Shortness of breath is better, but still he is having pain in both hands and knees and feet. No fever. No chills. No hematuria or hematochezia. No headache or dizziness. No chest pain. No palpitation. PHYSICAL EXAMINATION: VITAL SIGNS: Temperature 98.2, pulse 106, respiratory rate 18, blood pressure 120/75, pulse oximetry 98. HEENT: Head: Normocephalic and atraumatic. Eyes: PERRLA. Extraocular muscles are intact. Conjunctivae are clear. Nose is patent. Mucous membranes are moist. NECK: Supple. No carotid bruit. No JVD or thyromegaly. CHEST: Bilaterally symmetrical. HEART: S1 and S2 positive. LUNGS: Clear to auscultation. ABDOMEN: Soft. Bowel sounds positive. No organomegaly. EXTREMITIES: No edema. No cyanosis, but his hand joints are swollen. NEUROLOGIC: The patient is awake and alert. Moving all 4 extremities. No focal deficit. MEDICATIONS: Allopurinol, Brovana, Pulmicort, colchicine, Lovenox, Pepcid, Azactam, doxycycline, Zyvox, Claritin, Cozaar, Solu-Medrol, and Singulair. LABORATORY DATA: White blood count is 7.5, hemoglobin 12.4, hematocrit 36.5, platelets 151. Sodium 144, potassium 4.1, BUN 26, creatinine 1.1, glucose 112, calcium 8.2. ASSESSMENT AND PLAN: Mr. Moise Teran is a 72-year-old male with leukocytosis; anemia; hyperchloremia; hypocalcemia; diabetes mellitus; iron deficiency; hyperthyroidism; proteinuria; ketonuria; hematuria; seen by Infectious Disease, Dr. Deejay Galarza; severe sepsis due to bilateral lower lobe healthcare-associated pneumonia, slowly improving; maculopapular rash, probably from Zosyn, slowly improving; gouty arthritis, not getting better; hypertension; chronic obstructive pulmonary disease; gastroesophageal reflux disease. According to ID, continue Zyvox, Azactam, and doxycycline to complete 4 to 7 days, today is day #3. Reviewed Dr. Deejay Galarza's and Dr. Coughlin's notes. We will order some physical therapy. The patient has chronic obstructive lung disease, history of gastroesophageal reflux disease. Continue bronchodilators, sleep apnea precautions, and gastric and deep vein thrombosis prophylaxis. We will follow up. Mary Roper MD
[2018-03-31] MEDS: Arformoterol 15 mcg/2 ml Inh Sol IH SCH ×2 (09:10→20:10)
[2018-03-31] MEDS: Budesonide 0.5 mg/2 ml Inhal Susp UD IH SCH ×2 (09:11→20:11)
[2018-03-31] MEDS: Calcium-Vit D 250 mg-125 Units Tab UD PO SCH (10:24)
[2018-03-31] MEDS: Enoxaparin 40 mg Syringe SC SCH (10:26)
[2018-03-31] MEDS: MethylPREDNISolone 40 mg Vial IVP SCH ×3 (10:30→22:51)
[2018-03-31] MEDS: Linezolid 600 mg in D5W 300 ml 600 MG/300 ML BAG IVPB SCH ×2 (12:20→22:16)
--- NOTE | 2018-03-31 13:30 | PN ---
DATE: 03/31/2018 PULMONARY PROGRESS NOTE REFERRING PHYSICIAN: Mary Roper MD SUBJECTIVE: The patient is sitting side of the bed. Night was unremarkable. Breathing is better. Not much cough or short of breath. Rash is improving. No chest pain, No nausea. No vomiting. No diarrhea. No significant leg swelling. Complaining about multiple joint specially finger discomfort. OBJECTIVE: GENERAL: In no acute distress. VITAL SIGNS: Temperature is 98, heart rate is 105, respiratory rate 18, blood pressure 154/87, pulse ox 96% on room air. HEENT: Moist mucous membrane. Crowded airway. NECK: Supple. No JVD. LUNGS: Have a fair airflow with rhonchi. HEART: S1 and S2. ABDOMEN: Soft, nontender. No organomegaly. EXTREMITIES: There is no edema. Has a multiple finger joint deformities with tenderness. NEUROLOGICAL: Awake and alert. Follows simple command. MEDICATIONS: He is on Azactam 1 g IV every 8 hours, Brovana inhaled twice a day, Claritin 10 mg daily, colchicine 0.6 mg daily, Cozaar 50 mg daily, doxycycline 100 mg IV twice a day, DuoNeb every 6 hours p.r.n., Lovenox 40 mg daily, Pepcid 40 mg daily, Pulmicort inhaled twice a day, Singulair 10 mg daily, Solu-Medrol 40 mg every 12 hours, allopurinol 100 mg daily and Zyvox 600 mg every 12 hours. LABORATORY DATA: Reviewed and noted. Uric acid is 6.3. Microbiology: Blood culture and urine culture, there is no growth. IMPRESSION AND PLAN: Chronic obstructive lung disease, basilar infiltrate, history of gastroesophageal reflux disease, history of gout and pneumonia, multi-joint involvement with arthritis. Already on steroids, on antibiotics, bronchodilator, gastric prophylaxis, deep vein thrombosis prophylaxis. Will need Rheumatology followup. I guess upon discharge as outpatient. Thank you and we will follow with you. Morgan Coughlin MD
--- NOTE | 2018-03-31 14:46 | CP.PCM.PN ---
Subjective - Date & Time of Evaluation Date of Evaluation: 03/31/18 Time of Evaluation: 11:05 - Subjective Subjective: Breathing better, still with pain in the hands. No fevers. Objective - Vital Signs/Intake and Output Vital Signs (last 24 hours): Temp Pulse Resp BP Pulse Ox 98.0 F 105 H 19 154/87 H 96 03/31/18 05:48 03/31/18 10:25 03/31/18 05:48 03/31/18 10:25 03/31/18 05:48 Intake and Output: 03/31/18 03/31/18 06:59 18:59 Intake Total 720 Output Total 500 Balance 220 - Medications Medications: Current Medications Albuterol/Ipratropium (Duoneb 3 Mg/0.5 Mg (3 Ml) Ud) 3 ml IH [id number] PRN PRN Reason: Wheezing Last Admin: 03/28/18 23:55 Dose: 3 ml Allopurinol (Zyloprim) 100 mg PO DAILY [facility] Last Admin: 03/31/18 10:24 Dose: 100 mg Arformoterol Tartrate (Brovana) 15 mcg IH [id number] [facility] [place] Last Admin: 03/31/18 09:10 Dose: 15 mcg Budesonide (Pulmicort Respules) 1 mg IH [id number] [facility] [place] Last Admin: 03/31/18 09:11 Dose: 1 mg Calcium/Vitamin D (Oscal-D 250 Mg-125 Units Tab) 1 tab PO DAILY [facility] [place] Last Admin: 03/31/18 10:24 Dose: 1 tab Colchicine (Colocrys) 0.6 mg PO DAILY [facility] [place] Last Admin: 03/31/18 10:24 Dose: 0.6 mg Enoxaparin Sodium (Lovenox) 40 mg SC DAILY [facility] [place] PRN Reason: Protocol Last Admin: 03/31/18 10:26 Dose: 40 mg Famotidine (Pepcid) 40 mg PO HS [facility] [place] Last Admin: 03/30/18 22:28 Dose: 40 mg Aztreonam (Azactam 1 Gm) 100 mls @ 100 mls/hr IVPB Q8 BLANK PRN Reason: Protocol Stop: 04/06/18 14:01 Last Admin: 03/31/18 05:52 Dose: 100 mls/hr Doxycycline Hyclate 100 mg/ (Sodium Chloride) 100 mls @ 100 mls/hr IVPB Q12 [facility] PRN Reason: Protocol Stop: 04/06/18 22:01 Last Admin: 03/31/18 10:26 Dose: 100 mls/hr Linezolid (Zyvox 600mg/300ml D5w) 600 mg in 300 mls @ 200 mls/hr IVPB Q12 [facility] PRN Reason: Protocol Stop: 04/06/18 22:01 Last Admin: 03/30/18 22:27 Dose: 200 mls/hr Loratadine (Claritin) 10 mg PO DAILY [facility] Last Admin: 03/31/18 10:25 Dose: 10 mg Losartan Potassium (Cozaar) 50 mg PO DAILY [facility] Last Admin: 03/31/18 10:25 Dose: 50 mg Methylprednisolone (Solu-Medrol) 40 mg IVP Q12 [facility] [place] Last Admin: 03/31/18 10:30 Dose: 40 mg Montelukast Sodium (Singulair) 10 mg PO DAILY [facility] Last Admin: 03/31/18 10:25 Dose: 10 mg - Labs Labs: 03/30/18 06:15 03/30/18 06:15 PT 14.5 SECONDS (9.4-12.5) H 03/28/18 02:00 INR 1.27 (0.93-1.08) H 03/28/18 02:00 APTT 33.7 Seconds (25.1-36.5) 03/28/18 02:00 - Constitutional Appears: Chronically Ill - Head Exam Head Exam: NORMAL INSPECTION - Neck Exam Neck Exam: absent: Meningismus - Respiratory Exam Respiratory Exam: Decreased Breath Sounds - Cardiovascular Exam Cardiovascular Exam: +S1, +S2 - GI/Abdominal Exam GI & Abdominal Exam: Soft. absent: Tenderness Assessment and Plan - Assessment and Plan (Free Text) Plan: Assessment severe sepsis due to bilateral lower lobe HCAP, slowly improving maculopapular rash probably from Zosyn, slowly improving gout HTN COPD GERD Plan Continue Zyvox, Azactam and Doxycycline to complete 4-7 days of therapy (Day 4 today) follow up plan for gout - patient would probably need Colchicine - follow up plans of PCP will continue to monitor clinically will continue to monitor rash which has improved
--- NOTE | 2018-04-01 00:28 | CP.PCM.PN ---
Objective - Vital Signs/Intake and Output Vital Signs (last 24 hours): Temp Pulse Resp BP Pulse Ox 98 F 106 H 18 150/65 98 03/31/18 16:50 03/31/18 17:40 03/31/18 16:50 03/31/18 16:50 03/31/18 16:50 Intake and Output: 03/31/18 04/01/18 18:59 06:59 Intake Total 240 Output Total 300 Balance -60 - Medications Medications: Current Medications Albuterol/Ipratropium (Duoneb 3 Mg/0.5 Mg (3 Ml) Ud) 3 ml IH [id number] PRN PRN Reason: Wheezing Last Admin: 03/28/18 23:55 Dose: 3 ml Allopurinol (Zyloprim) 100 mg PO DAILY [facility] Last Admin: 03/31/18 10:24 Dose: 100 mg Arformoterol Tartrate (Brovana) 15 mcg IH [id number] [facility] Last Admin: 03/31/18 20:10 Dose: 15 mcg Budesonide (Pulmicort Respules) 1 mg IH [id number] [facility] Last Admin: 03/31/18 20:11 Dose: 1 mg Calcium/Vitamin D (Oscal-D 250 Mg-125 Units Tab) 1 tab PO DAILY [facility] Last Admin: 03/31/18 10:24 Dose: 1 tab Colchicine (Colocrys) 0.6 mg PO DAILY [facility] Last Admin: 03/31/18 10:24 Dose: 0.6 mg Enoxaparin Sodium (Lovenox) 40 mg SC DAILY [facility] PRN Reason: Protocol Last Admin: 03/31/18 10:26 Dose: 40 mg Famotidine (Pepcid) 40 mg PO HS [facility] Last Admin: 03/31/18 22:17 Dose: 40 mg Aztreonam (Azactam 1 Gm) 100 mls @ 100 mls/hr IVPB Q8 [facility] PRN Reason: Protocol Stop: 04/06/18 14:01 Last Admin: 03/31/18 22:16 Dose: 100 mls/hr Doxycycline Hyclate 100 mg/ (Sodium Chloride) 100 mls @ 100 mls/hr IVPB Q12 [facility] PRN Reason: Protocol Stop: 04/06/18 22:01 Last Admin: 03/31/18 22:18 Dose: 100 mls/hr Linezolid (Zyvox 600mg/300ml D5w) 600 mg in 300 mls @ 200 mls/hr IVPB Q12 [facility] PRN Reason: Protocol Stop: 04/06/18 22:01 Last Admin: 03/31/18 22:16 Dose: 200 mls/hr Loratadine (Claritin) 10 mg PO DAILY [facility] Last Admin: 03/31/18 10:25 Dose: 10 mg Losartan Potassium (Cozaar) 50 mg PO DAILY [facility] Last Admin: 03/31/18 10:25 Dose: 50 mg Methylprednisolone (Solu-Medrol) 40 mg IVP Q12 [facility] Last Admin: 03/31/18 22:51 Dose: Not Given Montelukast Sodium (Singulair) 10 mg PO DAILY [facility] Last Admin: 03/31/18 10:25 Dose: 10 mg - Labs Labs: 03/30/18 06:15 03/30/18 06:15 PT 14.5 SECONDS (9.4-12.5) H 03/28/18 02:00 INR 1.27 (0.93-1.08) H 03/28/18 02:00 APTT 33.7 Seconds (25.1-36.5) 03/28/18 02:00
[2018-04-01] MEDS: Aztreonam 1 Gm in NS 100mL 100 ML IVPB SCH ×3 (05:52→22:37)
--- NOTE | 2018-04-01 06:22 | PN ---
DATE: 03/31/2018 I am doing the progress note for 03/31/2018. The patient is 72 years old male. SUBJECTIVE: The patient is seen and examined at the bedside, complaining about pain in both knees and hands, cough and shortness of breath is better. No nausea, vomiting or diarrhea. No hematuria or hematochezia. No headache. No dizziness. No cyanosis of the extremities. PHYSICAL EXAMINATION: VITAL SIGNS: Temperature 98, pulse 106, respiratory rate 18, blood pressure 150/65, pulse oximetry of 98. HEENT: Head normocephalic, atraumatic. Eyes PERRLA. Extraocular muscles intact. Conjunctivae clear. Nose patent. Mucous membrane moist. NECK: Supple. No carotid bruit. No JVD or thyromegaly. CHEST: Bilaterally symmetrical. HEART: S1 and S2 positive. LUNGS: Clear to auscultation. ABDOMEN: Soft. Bowel sounds present. No organomegaly. EXTREMITIES: No cyanosis. MEDICATIONS: DuoNeb, albuterol, Brovana, Pulmicort, calcium, Colcrys 0.6 mg p.o. daily, Lovenox, Pepcid, Azactam, doxycycline, Zyvox, Claritin, Zocor, Solu-Medrol. LABORATORY DATA: White blood cell is 7.5, hemoglobin 12.4, hematocrit 36.5, platelet 151. Sodium 144, potassium 4.2, BUN 26, creatinine 1.1, glucose 112. ASSESSMENT AND PLAN: Mr. Jeffry Denson is 72 years old male is seen and examined by me on 03/31/2018 , anemia, hyperchloremia, renal insufficiency, hyperglycemia, seen by Dr. Deejay Galarza, Infectious Disease specialist. The patient has severe sepsis due to bilateral lower lobe healthcare-associated pneumonia, slowly improving; maculopapular rash probably from Zosyn, slowly improving; have gouty arthritis, both hand joints are deformed and has pain in both knees. We will do x-rays and we will call orthopedic consult. Hypertension getting controlled, chronic obstructive pulmonary disease, Dr. Coughlin is on the case. Gastroesophageal reflux disease, dyspepsia. We will continue Zosyn, Zyvox, Azactam and doxycycline, completing 4 to 7 days, 03/31/2018 is the 4th day. The patient is getting colchicine. Seen by Dr. Coughlin, hospital administrator also. History of gastroesophageal reflux disease, dyspepsia, actually has multi joint involvement with arthritis, already on steroid. Gastric prophylaxis, deep vein thrombosis prophylaxis given. We need Rheumatology consult, but we do not have acquisition advisor in the hospital. The patient will do acquisition advisor as outpatient. We will followup. We will start physical therapy or may be we will take the patient to Transitional Care Unit. Mary Roper MD MTDD
[2018-04-01 06:54] LABS: HEMOGLOBIN 12.4 g/dL (14.0-18.0); MEAN CELL VOLUME 89.7 fl (80.0-105.0); MEAN CORPUSCULAR HEMOGLOBIN 30.3 pg (25.0-35.0); MEAN CORPUSCULAR HGB CONC 33.8 g/dl (31.0-37.0); MEAN PLATELET VOLUME 9.8 fl (7.0-11.0); RBC 4.09 10^6/uL (3.5-6.1); WHITE BLOOD COUNT 11.9 10^3/ul (4.5-11.0)
[2018-04-01] MEDS: Arformoterol 15 mcg/2 ml Inh Sol IH SCH ×2 (09:16→20:04)
[2018-04-01] MEDS: Budesonide 0.5 mg/2 ml Inhal Susp UD IH SCH ×2 (09:17→20:04)
--- NOTE | 2018-04-01 09:37 | RAD ---
PROCEDURE: Bilateral Knee Radiographs. HISTORY: pain COMPARISON: None. FINDINGS: BONES: Right Knee: Normal. No fracture. Left Knee: Normal. No fracture. JOINTS: Right Knee: Mild joint space narrowing lateral compartment Left knee: Normal. No osteoarthritis. SOFT TISSUES: Right Knee: Normal. Left Knee: Normal. JOINT EFFUSION: Right Knee: None. Left Knee: None. OTHER FINDINGS: None. IMPRESSION: Mild joint space narrowing lateral compartment of the right knee
[2018-04-01] MEDS: Linezolid 600 mg in D5W 300 ml 600 MG/300 ML BAG IVPB SCH ×2 (10:20→22:34)
[2018-04-01] MEDS: MethylPREDNISolone 40 mg Vial IVP SCH ×2 (10:21→22:31)
[2018-04-01] MEDS: Calcium-Vit D 250 mg-125 Units Tab UD PO SCH (10:22)
[2018-04-01] MEDS: Enoxaparin 40 mg Syringe SC SCH (10:22)
[2018-04-01] MEDS ORDERED: MethylPREDNISolone Depo 40 mg/ml (5 ml) Inj IM ONE (13:00)
[2018-04-01] MEDS ORDERED: Bupivacaine 0.5% Inj(30mL) IJ ONE (13:00)
[2018-04-01 13:59] LABS: FLUID TYPE SYNOVIAL FLUID
[2018-04-01 14:21] LABS: SF GROSS APPEARANCE TURBID (CLEAR)
--- NOTE | 2018-04-01 15:41 | CP.PCM.PN ---
Subjective - Date & Time of Evaluation Date of Evaluation: 04/01/18 Time of Evaluation: 10:10 - Subjective Subjective: Comfortable in bed, no fevers, not in distress. Objective - Vital Signs/Intake and Output Vital Signs (last 24 hours): Temp Pulse Resp BP Pulse Ox 98.8 F 120 H 21 139/87 97 04/01/18 06:00 04/01/18 06:00 04/01/18 06:00 04/01/18 06:00 04/01/18 06:00 Intake and Output: 04/01/18 04/01/18 06:59 18:59 Intake Total 1440 Output Total 1640 Balance -200 - Medications Medications: Current Medications Albuterol/Ipratropium (Duoneb 3 Mg/0.5 Mg (3 Ml) Ud) 3 ml IH [id number] PRN PRN Reason: Wheezing Last Admin: 03/28/18 23:55 Dose: 3 ml Allopurinol (Zyloprim) 100 mg PO DAILY [facility] Last Admin: 04/01/18 10:21 Dose: 100 mg Arformoterol Tartrate (Brovana) 15 mcg IH [id number] [facility] Last Admin: 04/01/18 09:16 Dose: 15 mcg Budesonide (Pulmicort Respules) 1 mg IH [id number] [facility] Last Admin: 04/01/18 09:17 Dose: 1 mg Calcium/Vitamin D (Oscal-D 250 Mg-125 Units Tab) 1 tab PO DAILY [facility] Last Admin: 04/01/18 10:22 Dose: 1 tab Colchicine (Colocrys) 0.6 mg PO DAILY [facility] Last Admin: 04/01/18 10:21 Dose: 0.6 mg Enoxaparin Sodium (Lovenox) 40 mg SC DAILY [facility] PRN Reason: Protocol Last Admin: 04/01/18 10:22 Dose: 40 mg Famotidine (Pepcid) 40 mg PO HS [facility] Last Admin: 03/31/18 22:17 Dose: 40 mg Aztreonam (Azactam 1 Gm) 100 mls @ 100 mls/hr IVPB Q8 [facility] PRN Reason: Protocol Stop: 04/06/18 14:01 Last Admin: 04/01/18 13:23 Dose: 100 mls/hr Doxycycline Hyclate 100 mg/ (Sodium Chloride) 100 mls @ 100 mls/hr IVPB Q12 [facility] PRN Reason: Protocol Stop: 04/06/18 22:01 Last Admin: 04/01/18 10:20 Dose: 100 mls/hr Linezolid (Zyvox 600mg/300ml D5w) 600 mg in 300 mls @ 200 mls/hr IVPB Q12 [facility] PRN Reason: Protocol Stop: 04/06/18 22:01 Last Admin: 04/01/18 10:20 Dose: 200 mls/hr Loratadine (Claritin) 10 mg PO DAILY [facility] Last Admin: 04/01/18 10:21 Dose: 10 mg Losartan Potassium (Cozaar) 50 mg PO DAILY [facility] Last Admin: 04/01/18 10:22 Dose: 50 mg Methylprednisolone (Solu-Medrol) 40 mg IVP Q12 [facility] Last Admin: 04/01/18 10:21 Dose: 40 mg Montelukast Sodium (Singulair) 10 mg PO DAILY [facility] Last Admin: 04/01/18 10:22 Dose: 10 mg - Labs Labs: 04/01/18 06:30 03/30/18 06:15 PT 14.5 SECONDS (9.4-12.5) H 03/28/18 02:00 INR 1.27 (0.93-1.08) H 03/28/18 02:00 APTT 33.7 Seconds (25.1-36.5) 03/28/18 02:00 - Constitutional Appears: Chronically Ill - Head Exam Head Exam: NORMAL INSPECTION - Respiratory Exam Respiratory Exam: Decreased Breath Sounds - Cardiovascular Exam Cardiovascular Exam: +S1, +S2 - GI/Abdominal Exam GI & Abdominal Exam: Soft. absent: Tenderness Assessment and Plan - Assessment and Plan (Free Text) Plan: Assessment severe sepsis due to bilateral lower lobe HCAP, slowly improving maculopapular rash probably from Zosyn, slowly improving gout HTN COPD GERD Plan Continue Zyvox, Azactam and Doxycycline to complete 4-7 days of therapy (Day 5 today) follow up plan for gout - patient would probably need Colchicine - follow up plans of PCP will continue to monitor clinically will continue to monitor rash which has improved
--- NOTE | 2018-04-01 20:47 | PN ---
DATE: 04/01/2018 PULMONARY PROGRESS NOTE REFERRING PHYSICIAN: Mary Roper MD SUBJECTIVE: The patient is lying in the bed, head at 45 degrees. Night was unremarkable. No headache, no rhinitis. Cough is better. No shortness of breath or chest pain. No nausea. No vomiting. No diarrhea. Has a significant erythema and swelling of the joint of the upper extremity. OBJECTIVE: GENERAL: In no acute distress. VITAL SIGNS: Temperature is 98, heart rate is 110, respiratory rate is 20, blood pressure 139/87, pulse ox 97% on room air. HEENT: Moist mucous membranes. Crowded airway. NECK: Supple. No JVD. LUNGS: Have fair airflow and rhonchi. HEART: S1 and S2. ABDOMEN: Soft, nontender. No organomegaly. EXTREMITIES: There is no edema. There are multiple joint, especially upper extremity swollen, erythematous and tender to touch. NEUROLOGICAL: Awake and alert. Follows simple command. MEDICATIONS: He is on Azactam 1 g every 8 hours, Brovana inhaled twice a day, Claritin 10 mg daily, colchicine 0.6 mg daily, Cozaar 50 mg daily, doxycycline 100 mg twice a day, DuoNeb every .6 hours p.r.n., Lovenox 40 mg daily, Pepcid 40 mg daily, Pulmicort inhaled twice a day, Singulair 10 mg daily, Solu-Medrol 40 mg every 12 hours, allopurinol 100 mg daily, Zyvox 600 mg every 12 hours. LABORATORY DATA: Shows hemoglobin 12.4, hematocrit 36.7, WBC 11.9. Sed rate is 60. Sodium 144 two days ago. Microbiology: Blood culture and urine culture, there is no6 growth. Had a knee x-ray done, which shows mild joint space narrowing, lateral compartment of the right knee. IMPRESSION AND PLAN: Chronic obstructive lung disease, basilar infiltrate, history of gastroesophageal reflux disease, history of gout, pneumonia, multiple joint involvement with arthritis/gout. Already on allopurinol, colchicine, steroids. Continue bronchodilator, gastric prophylaxis, deep vein thrombosis prophylaxis. Antibiotics as per Infectious Diseases. Thank you and we will follow with you. Morgan Coughlin MD
--- NOTE | 2018-04-01 21:55 | PN ---
DATE: 04/01/2018 SUBJECTIVE: The patient is a 72-year-old male. The patient was seen and examined on the bedside. The patient is uncomfortable, like hallucinating, delusional, I put him on one-to-one with change of mental status. Yesterday, his status was normal. He was sitting and talking to me. Today, he is not recognizing anybody. Do not look like in distress, but mentally he looks like challenged today. PHYSICAL EXAMINATION: VITAL SIGNS: Temperature 98.8, pulse 120, respiratory rate 21, blood pressure 139/80 , pulse oximetry 97. HEENT: Head normocephalic, atraumatic. Eyes PERRLA. Extraocular muscles intact. Conjunctivae clear. Nose patent. Mucous membrane moist. NECK: Supple. No carotid bruit. No JVD or thyromegaly. CHEST: Bilaterally symmetrical. HEART: S1 and S2 positive. LUNGS: Clear to auscultation. ABDOMEN: Soft. Bowel sounds positive. No organomegaly. EXTREMITIES: No edema. No cyanosis. NEUROLOGICAL: The patient is awake and alert. Moving all 4 extremities. No focal deficits. MEDICATIONS: Allopurinol; Brovana; Pulmicort; vitamin D; Colcrys; Lovenox; Pepcid; Azactam; doxycycline; Zyvox; Claritin; Cozaar; Solu-Medrol 40 mg, I am tapering down now; Singulair. LABORATORY DATA: White blood cells 11.9, hemoglobin 12.4, hematocrit 36.7, platelets 186. Sodium 144, potassium 4.2, BUN 26, creatinine is 1.1, glucose 112. ASSESSMENT AND PLAN: Mr. Jeffry Denson, 72-year-old male with increased BUN, hyperchloremia, hyperglycemia, anemia. Came with severe sepsis due to bilateral lower lobe healthcare-associated pneumonia, slowly improving; maculopapular rash from Zosyn, slowly improving; gouty arthritis. Dr. Jenkins is on the case. Hypertension, chronic obstructive pulmonary disease, gastroesophageal reflux disease. According to ID, Continue Zyvox, Azactam, doxycycline to complete 4-7 days. Today is day 5. The patient is getting colchicine. Due to the patient's altered mental status, I called consult with Dr. Everett Freeman, neurologist and ordered CAT scan of the head and ordered one-to-one. It looks like the patient is in danger to himself. He do not know what he is doing. Knee x-ray was done, reviewed by me. Gastrointestinal/deep venous thrombosis prophylaxis. Repeat labs. We will follow up. Mary Roper MD MTDD
[2018-04-02] MEDS: Aztreonam 1 Gm in NS 100mL 100 ML IVPB SCH ×2 (05:12→15:14)
[2018-04-02] MEDS: Arformoterol 15 mcg/2 ml Inh Sol IH SCH ×2 (08:16→19:40)
[2018-04-02] MEDS: Budesonide 0.5 mg/2 ml Inhal Susp UD IH SCH ×2 (08:16→19:40)
--- NOTE | 2018-04-02 08:17 | CON ---
DATE: 04/01/2018 ORTHOPEDIC CONSULTATION LOCATION: Room 276, bed 1. REASON FOR CONSULTATION: Left knee pain. HISTORY OF PRESENT ILLNESS: He has an effusion of the left knee. X-ray showed mild arthritis and he has tenderness to palpation. We aspirated the left knee by extracting 30 mL of serosanguineous fluid. We attempted to get cultures, cell count, crystals, and injected the knee with Depo-Medrol and Marcaine for marked relief. He has a past history of gout. 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 FINAL DIAGNOSIS: Gouty arthritis of both knees with an effusion on the left knee that was aspirated and injected with Depo-Medrol and Marcaine. Shon Jenkins DO
[2018-04-02] MEDS: Calcium-Vit D 250 mg-125 Units Tab UD PO SCH (10:33)
[2018-04-02] MEDS: MethylPREDNISolone 40 mg Vial IVP SCH ×2 (10:34→22:10)
[2018-04-02] MEDS: Enoxaparin 40 mg Syringe SC SCH (10:35)
[2018-04-02] MEDS: Linezolid 600 mg in D5W 300 ml 600 MG/300 ML BAG IVPB SCH ×3 (13:14→20:59)
--- NOTE | 2018-04-02 15:07 | CP.PCM.PN ---
Subjective - Date & Time of Evaluation Date of Evaluation: 04/02/18 Time of Evaluation: 11:00 - Subjective Subjective: Afebrile, not in distress. Objective - Vital Signs/Intake and Output Vital Signs (last 24 hours): Temp Pulse Resp BP Pulse Ox 97.3 F L 99 H 20 159/89 H 94 L 04/02/18 06:00 04/02/18 06:00 04/02/18 06:00 04/02/18 06:00 04/02/18 06:00 Intake and Output: 04/02/18 04/02/18 06:59 18:59 Intake Total 700 Output Total 200 Balance 500 - Medications Medications: Current Medications Albuterol/Ipratropium (Duoneb 3 Mg/0.5 Mg (3 Ml) Ud) 3 ml IH [id number] PRN PRN Reason: Wheezing Last Admin: 03/28/18 23:55 Dose: 3 ml Allopurinol (Zyloprim) 100 mg PO DAILY [facility] Last Admin: 04/01/18 10:21 Dose: 100 mg Arformoterol Tartrate (Brovana) 15 mcg IH [id number] [facility] Last Admin: 04/02/18 08:16 Dose: 15 mcg Budesonide (Pulmicort Respules) 1 mg IH [id number] [facility] Last Admin: 04/02/18 08:16 Dose: 1 mg Calcium/Vitamin D (Oscal-D 250 Mg-125 Units Tab) 1 tab PO DAILY [facility] Last Admin: 04/01/18 10:22 Dose: 1 tab Colchicine (Colocrys) 0.6 mg PO DAILY [facility] Last Admin: 04/01/18 10:21 Dose: 0.6 mg Enoxaparin Sodium (Lovenox) 40 mg SC DAILY BLANK PRN Reason: Protocol Last Admin: 04/01/18 10:22 Dose: 40 mg Famotidine (Pepcid) 40 mg PO HS [facility] Last Admin: 04/01/18 22:31 Dose: Not Given Aztreonam (Azactam 1 Gm) 100 mls @ 100 mls/hr IVPB Q8 BLANK PRN Reason: Protocol Stop: 04/06/18 14:01 Last Admin: 04/02/18 05:12 Dose: 100 mls/hr Doxycycline Hyclate 100 mg/ (Sodium Chloride) 100 mls @ 100 mls/hr IVPB Q12 BLANK PRN Reason: Protocol Stop: 04/06/18 22:01 Last Admin: 04/01/18 22:35 Dose: 100 mls/hr Linezolid (Zyvox 600mg/300ml D5w) 600 mg in 300 mls @ 200 mls/hr IVPB Q12 BLANK PRN Reason: Protocol Stop: 04/06/18 22:01 Last Admin: 04/01/18 22:34 Dose: 200 mls/hr Loratadine (Claritin) 10 mg PO DAILY [facility] Last Admin: 04/01/18 10:21 Dose: 10 mg Losartan Potassium (Cozaar) 50 mg PO DAILY [facility] Last Admin: 04/01/18 10:22 Dose: 50 mg Methylprednisolone (Solu-Medrol) 20 mg IVP Q12 [facility] Last Admin: 04/01/18 22:31 Dose: Not Given Montelukast Sodium (Singulair) 10 mg PO DAILY [facility] Last Admin: 04/01/18 10:22 Dose: 10 mg - Labs Labs: 04/01/18 06:30 03/30/18 06:15 PT 14.5 SECONDS (9.4-12.5) H 03/28/18 02:00 INR 1.27 (0.93-1.08) H 03/28/18 02:00 APTT 33.7 Seconds (25.1-36.5) 03/28/18 02:00 - Constitutional Appears: Chronically Ill - Head Exam Head Exam: NORMAL INSPECTION - ENT Exam ENT Exam: Mucous Membranes Moist - Neck Exam Neck Exam: absent: Meningismus - Respiratory Exam Respiratory Exam: Decreased Breath Sounds - Cardiovascular Exam Cardiovascular Exam: +S1, +S2 - GI/Abdominal Exam GI & Abdominal Exam: Soft. absent: Tenderness Assessment and Plan - Assessment and Plan (Free Text) Plan: Assessment severe sepsis due to bilateral lower lobe HCAP, slowly improving maculopapular rash probably from Zosyn, slowly improving gout HTN COPD GERD Plan Continue Zyvox, Azactam and Doxycycline to complete 4-7 days of therapy (Day 6 today) follow up plan for gout - patient would probably need Colchicine - follow up plans of PCP will continue to monitor clinically will continue to monitor rash which has improved
--- NOTE | 2018-04-02 15:16 | CT ---
PROCEDURE: CT HEAD WITHOUT CONTRAST. HISTORY: AMS COMPARISON: None available. TECHNIQUE: Axial computed tomography images were obtained through the head/brain without intravenous contrast. Radiation dose: Total exam DLP = 966 mGy-cm. This CT exam was performed using one or more of the following dose reduction techniques: Automated exposure control, adjustment of the mA and/or kV according to patient size, and/or use of iterative reconstruction technique. FINDINGS: HEMORRHAGE: No intracranial hemorrhage. BRAIN: No mass effect or edema. Chronic microvascular changes in the periventricular white matter VENTRICLES: Unremarkable. No hydrocephalus. CALVARIUM: Unremarkable. PARANASAL SINUSES: Unremarkable as visualized. No significant inflammatory changes. MASTOID AIR CELLS: Unremarkable as visualized. No inflammatory changes. OTHER FINDINGS: None. IMPRESSION: No acute findings
--- NOTE | 2018-04-02 18:03 | CON ---
CHIEF COMPLAINT: Altered mental status. HISTORY OF PRESENT ILLNESS: This is a 72-year-old man with past medical history of chronic lung disease, hypertension, sleep apnea syndrome, gastroesophageal reflux disease who came in for multiple joint discomfort and pain and had fevers and generalized features of diffuse maculopapular rash and found to have bilateral lower lobe pneumonia and the maculopapular rash which is improving with antibiotics, was consulted for change in mental status in terms of hallucinations and not acting himself. CAT scan of the head showed no acute intracranial abnormalities. The patient follows simple commands, moves all extremities equally. Sensory exam, withdraws are localized to noxious stimulus. He is alert and oriented to self, not much to month or year. Recall after 5 minutes is 0/3. Poor attention span, slow thought process. He is mildly delirious. PAST MEDICAL HISTORY: As above. SOCIAL HISTORY: No illicit drug use, smoking, or EtOH abuse. ALLERGIES: ALLERGIC TO LEVOFLOXACIN AND PENICILLINS. MEDICATIONS: Reviewed by nursing reconciliation sheet. REVIEW OF SYSTEMS: A 14-point review of systems is negative except in the HPI. FAMILY HISTORY: Noncontributory. LABORATORY DATA: Sodium is 144, potassium 4.2, chloride 112, carbon dioxide 22, BUN of 26, creatinine 1.1, random glucose of 112. PHYSICAL EXAMINATION: VITAL SIGNS: Temperature of 98.8, pulse rate 113, blood pressure 130/70, respiratory rate 20. GENERAL: The patient is drowsy, in no acute distress. HEENT: Head is atraumatic and normocephalic. PERRLA. Extraocular muscles intact. NECK: Supple. No JVD. No adenopathy noted. LUNGS: Decreased breath sounds bilaterally. Scattered rhonchi. HEART: S1 and S2. Normal rate and rhythm. No murmur, rubs, or gallops. ABDOMEN: Soft, nontender and nondistended. Bowel sounds are present. EXTREMITIES: No clubbing. No cyanosis. Peripheral pulses 2+ felt bilaterally. NEUROLOGIC: The patient is alert and oriented to person and place, not much to month or year. Recall after 5 minutes is 0/3. Poor attention span. Slow thought process. Cranial nerves II through XII intact. Speech is fluent without any errors. Motor exam: Slightly increased tone throughout. Moves all extremities equally. No pronator drift was seen. Sensory exam: Light touch, pinprick, proprioception, and vibration is intact. DTRs are 2+ throughout, 1 at both knee and ankles. Coordination, [id number] intact. No dysmetria noted. ASSESSMENT: This is a 72-year-old man with history of chronic obstructive pulmonary disease, hypertension, gout, gastroesophageal reflux disease, came in for generalized weakness, fever and joint pain, found to have diffuse maculopapular rash and found to have bilateral lower lobe pneumonia. He was in severe sepsis, was consulted for altered mental status from hallucinating and becoming delusional. His altered mental status is likely secondary to underlying toxic metabolic encephalopathy, superimposed underlying chronic as well as delirium. At this time, we will recommend; 1. Monitor electrolytes and correct accordingly. 2. Continue with Zyvox, Azactam and doxycycline for his underlying sepsis and follow with ID's recommendations. 3. Keep his blood pressure between 130s to 140s systolic and diastolic 70s-80s. 4. PT/OT evaluation and continue current present medical management. Thank you for this consult. Everett Freeman MD
--- NOTE | 2018-04-02 21:47 | PN ---
DATE: 04/02/2018 PULMONARY PROGRESS NOTE REFERRING PHYSICIAN: Mary Roper MD SUBJECTIVE: He is lying in the bed. Last 24 hour event noted. Apparently patient was hallucinating, became agitated, noncompliant with the medications, was started on antipsychotic and benzodiazepine. Presently, he is sleepy, arousable, under one-to-one supervision, knows where he is, knows who is the president. Apparently this morning refused to do the CAT scan of the head. Linda Rdz was called because of his agitation and feel danger to himself, under one-to-one supervision. Still having lot of swelling of his both joints. No headache. No rhinitis. No nausea. No vomiting. No cough. OBJECTIVE: GENERAL: In no acute distress. VITAL SIGNS: Temperature is 98, heart rate is 110, respiratory rate is 20, blood pressure 163/98, pulse ox 94% on room air. HEENT: Moist mucous membranes. Crowded airway. NECK: Supple. No JVD. LUNGS: Have a fair airflow with few rhonchi. HEART: S1 and S2. ABDOMEN: Soft, nontender. No organomegaly. EXTREMITIES: Both hands had extensive joint swelling, erythema, tenderness. NEUROLOGICAL: Awake, alert. Follow simple command. MEDICATIONS: He is on Brovana inhaled twice a day, Claritin 10 mg daily, colchicine 0.6 mg daily, Cozaar 50 mg daily, doxycycline 100 mg twice a day, albuterol/Atrovent nebulizer every 6 hours, Protonix 40 mg daily, calcium plus vitamin D one tab daily, Pepcid 40 mg daily, budesonide inhaled twice a day, Seroquel 12.5 mg at bedtime, Singulair 10 mg daily, Solu-Medrol 20 mg twice a day, Xanax 0.125 mg three times a day, allopurinol 100 mg daily, Zyvox 600 mg twice a day. LABORATORY DATA: Shows hemoglobin from yesterday 12.4, sed rate was 60. Patient refused lab work this morning. Microbiology: synovial fluid in 24 hours, there is no growth. Had a CAT scan of the head done this afternoon shows no acute finding. Had a cytology done on joint fluid of the left knee, which is positive for birefringent needle shaped crystals consistent with uric acid crystals. IMPRESSION AND PLAN: Chronic obstructive lung disease, basilar infiltrate, gastroesophageal reflux disease, gouty arthritis affecting multiple joints. Antibiotics as per Infectious Diseases. Bronchodilator. Case discussed with nursing staff. Convinced patient to get intravenous access. We will increase colchicine to 0.6 twice a day also increase allopurinol to 300 mg daily. Continue steroids for now. Seen by Orthopedics. Thank you and we will follow with you. Morgan Coughlin MD
--- NOTE | 2018-04-03 03:12 | CON ---
HISTORY OF PRESENT ILLNESS: In short, the patient is 72-year-old man, history of gout. The patient was admitted on the medical side for evaluation of diffuse body ache. Patient was found to have severe sepsis. The patient is on the medical side. Psych consult was called for evaluation of confusion as well as hallucinations which majority of the time . Patient was seen and examined. The patient presented to be pleasant, cooperative, at times laughing inappropriately. The patient is not agitated or aggressive. The patient seems to be good historian to describe his hallucinations. The patient is saying that he is seeing people whom he is aware that not existing. The patient also reported that they are drawing some paintings. The patient reported that he is not scared and actually, this is pleasant hallucination and as per the patient, "I have somebody to talk to." The patient was educated that most likely visual hallucinations are related to the medical issues and this rewriter offered the patient to be on Seroquel at the nighttime. The patient verbalized understanding and willing to try that medication. Besides that, the patient is not depressed, not psychotic, not anxious. PHYSICAL EXAMINATION: VITAL SIGNS: This rewriter reviewed vital signs, seem to be stable. Temperature 98.8, pulse is 112, blood pressure 162/98, respirations 20. MEDICATIONS: Reviewed. Patient is on allopurinol, Brovana, Pulmicort, colchicine, Lovenox, Pepcid, Zyvox, Claritin, Cozaar, Seroquel will be started, Solu-Medrol, and Singulair. This rewriter will implement Xanax 0.125 mg three times a day as needed for anxiety. This rewriter educated the patient about treatment plan. The patient was in agreement with that. Seems to have good understanding. MENTAL STATUS EXAMINATION: The patient presented to be alert and oriented. The patient knows that he is in the hospital, the reason why he is in the hospital. Mood described "I am okay." Affect was expanded. Thought process seems to be coherent, but at times, the patient appears to be confused as well as hallucinating. Thought content: The patient is actively hallucinating. The patient is aware that hallucinations are not real. The patient denied thoughts of harming himself or others. Denied intent or plan. Insight and judgment seem to be limited, but the impulses are well controlled. PAST PSYCHIATRIC HISTORY: The patient denied ever being evaluated by psychiatrist in the past, denied history of suicidal attempts. IMPRESSION: Most likely, the patient is in delirium stage due to general medical condition. The patient was found to have severe sepsis, moreover visual hallucinations related to either delirium stage or Lewy body dementia, but the patient does not appear to be demented as of now. PLAN: This rewriter implemented Seroquel at the nighttime, Xanax as needed for anxiety. The patient is on one-to-one. Dr. Mansfield will follow up on the patient and advise accordingly. Thank you very much for letting me participate in care of your patient. Should you have any questions, give me a call back. Viki Cervantes MD
--- NOTE | 2018-04-03 07:34 | PN ---
DATE: 04/02/2018 SUBJECTIVE: The patient is a 72-year-old male. The patient was seen and examined at the bedside on 04/02/2018, sleepy, arousable, is on one-to-one. According to nursing staff, the patient was agitated before that and was hallucinating. He thinks that he is the president, refused to do CAT scan of the head. Linda vigil was called because of his agitation and feeling danger to him under one-to-one supervision also. Still having lot of swelling of his joints, especially hands and knees. Orthopedics is on the case. No fever. No chill. No nausea, vomiting or diarrhea. PHYSICAL EXAMINATION: VITAL SIGNS: Temperature 98, heart rate 110, respiratory rate 20, blood pressure 160/98, pulse oximetry 94% on room air. HEENT: Head normocephalic, atraumatic. Eyes PERRLA. Extraocular muscles intact. Conjunctivae clear. Nose patent. Mucous membrane moist. NECK: Supple. No carotid bruit. No JVD or thyromegaly. CHEST: Bilaterally symmetrical. LUNGS: Has fair airflow with few rhonchi. HEART: S1 and S2 positive. ABDOMEN: Soft, nontender. No organomegaly. EXTREMITIES: Both hands had extensive joint swelling, red and warm. Knees are also tender. NEUROLOGICAL: When I saw the patient, the patient was sleepy, but arousable. Follows simple commands. MEDICATIONS: Brovana; Claritin, colchicine, Cozaar, doxycycline, Protonix, Pepcid, Seroquel, Singulair, Solu-Medrol tapering dosing, Xanax, allopurinol, Zyvox. LABORATORY DATA: We do not have recent lab today, but I reviewed old labs. Glucose is 108. ASSESSMENT AND PLAN: Mr. Jeffry Denson is a 72-year-old male with leukocytosis, anemia, high ESR, hyperchloremia, hypocalcemia, proteinuria, ketonuria, bilirubinuria, hematuria. Seen by Dr. Coughlin, finger waver/Critical Care, has chronic obstructive lung disease, basilar infiltrates, gastroesophageal reflux disease, gouty arthritis affecting multiple joints, knees are involved also. Called and consulted Dr. Jenkins. Continue antibiotics as per Infectious Disease, bronchodilators. Discussion done with one-to-one and the patient's nursing staff. Dr. Coughlin increased colchicine 0.6 mg twice a day, increased allopurinol, getting tapering dose of steroids due to altered mental status. We called consult with Dr. Everett Freeman. Appreciated his input. History of maculopapular rash, improved. Severe sepsis with hallucinations and delusions. According to neurologist, his altered mental status looks like secondary to underlying toxic metabolic encephalopathy, super-imposed underlying chronic condition. We will continue monitoring electrolytes. Appreciated all consultants' notes, Keep one-to-one. Physical therapy, out of bed. We will follow up. Mary Roper MD
[2018-04-03] MEDS: Budesonide 0.5 mg/2 ml Inhal Susp UD IH SCH ×2 (07:41→22:21)
[2018-04-03] MEDS: Arformoterol 15 mcg/2 ml Inh Sol IH SCH ×2 (07:41→22:21)
[2018-04-03 09:01] LABS: ALB/GLOB RATIO 1.1 (1.1-1.8); ALT/SGPT 50 U/L (7-56); AST/SGOT 26 U/L (17-59); BLOOD UREA NITROGEN 23 mg/dL (7-21); GFR AFRICAN-AMERICAN > 60; GFR NON-AFRICAN AMERICAN > 60; URIC ACID 5.6 mg/dL (3.5-8.5)
[2018-04-03] MEDS: Calcium-Vit D 250 mg-125 Units Tab UD PO SCH (09:55)
[2018-04-03] MEDS: MethylPREDNISolone 40 mg Vial IVP SCH ×2 (09:55→21:41)
[2018-04-03] MEDS: Enoxaparin 40 mg Syringe SC SCH (09:56)
--- NOTE | 2018-04-03 13:40 | PN ---
DATE: 04/03/2018 SUBJECTIVE: Two days ago, I did the arthrocentesis of his left knee for effusion and turned out to be compatible with gouty joint disease with negative birefringent crystals consistent with uric acid for gout of the left knee and he feels better today even though, he does not remember me and aspirating the knee back on 03/31/2018, but his hands, there is another story. 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 The solution of this, we will have to get a hand consult if there is anything else we could do, I do not want to do any surgery on his hands, but he does have tophaceous gout and sometimes, the Zyloprim could aggravate the acute attack, but this should be managed by a deputy register of deeds and a hand surgeon. I do not want to take part in the care of the hand. He would need to see a deputy register of deeds or a hand surgeon for both hands with gouty tophaceous gout. Presently, he is on Cortisone, probably the best thing we could do right now, but there is no need for surgical intervention. We will have to watch for infection, that is how we are keeping the hands clean and doing some physical therapy to get as much motion as possible, otherwise, the left knee is doing better when he does have gout and he does not know anything about what not to eat, so I am to get a dietitian consult because he has been eating a lot of shrimp and crabs and liver, all the things that he should not be doing, so I have a dietitian see him too. Shon Jenkins DO
--- NOTE | 2018-04-03 14:44 | CP.PCM.PN ---
Subjective - Date & Time of Evaluation Date of Evaluation: 04/03/18 Time of Evaluation: 11:45 - Subjective Subjective: Breathing much better, no fevers, not in distress, still with pain in the knuckles of both hands. Objective - Vital Signs/Intake and Output Vital Signs (last 24 hours): Temp Pulse Resp BP Pulse Ox 98.0 F 92 H 18 139/81 96 04/03/18 06:00 04/03/18 09:55 04/03/18 06:00 04/03/18 09:55 04/03/18 06:00 Intake and Output: 04/03/18 04/03/18 06:59 18:59 Intake Total 200 Balance 200 - Medications Medications: Current Medications Albuterol/Ipratropium (Duoneb 3 Mg/0.5 Mg (3 Ml) Ud) 3 ml IH [id number] PRN PRN Reason: Wheezing Last Admin: 03/28/18 23:55 Dose: 3 ml Allopurinol (Zyloprim) 300 mg PO DAILY [facility] Last Admin: 04/03/18 09:55 Dose: 300 mg Alprazolam (Xanax) 0.125 mg PO TID PRN; Protocol PRN Reason: Anxiety Stop: 04/09/18 18:01 Arformoterol Tartrate (Brovana) 15 mcg IH [id number] [facility] Last Admin: 04/03/18 07:41 Dose: 15 mcg Budesonide (Pulmicort Respules) 1 mg IH [id number] [facility] Last Admin: 04/03/18 07:41 Dose: 1 mg Calcium/Vitamin D (Oscal-D 250 Mg-125 Units Tab) 1 tab PO DAILY [facility] Last Admin: 04/03/18 09:55 Dose: 1 tab Colchicine (Colocrys) 0.6 mg PO Q12 BLANK Last Admin: 04/03/18 10:03 Dose: 0.6 mg Enoxaparin Sodium (Lovenox) 40 mg SC DAILY [facility] PRN Reason: Protocol Last Admin: 04/03/18 09:56 Dose: 40 mg Famotidine (Pepcid) 40 mg PO HS [facility] Last Admin: 04/02/18 22:09 Dose: Not Given Loratadine (Claritin) 10 mg PO DAILY [facility] Last Admin: 04/03/18 09:55 Dose: 10 mg Losartan Potassium (Cozaar) 50 mg PO DAILY [facility] Last Admin: 04/03/18 09:55 Dose: 50 mg Methylprednisolone (Solu-Medrol) 20 mg IVP Q12 [facility] Last Admin: 04/03/18 09:55 Dose: 20 mg Montelukast Sodium (Singulair) 10 mg PO DAILY [facility] Last Admin: 04/03/18 09:55 Dose: 10 mg Quetiapine Fumarate (Seroquel) 12.5 mg PO [facility] PRN Reason: Protocol Last Admin: 04/02/18 22:09 Dose: Not Given - Labs Labs: 04/01/18 06:30 04/03/18 07:30 PT 14.5 SECONDS (9.4-12.5) H 03/28/18 02:00 INR 1.27 (0.93-1.08) H 03/28/18 02:00 APTT 33.7 Seconds (25.1-36.5) 03/28/18 02:00 - Constitutional Appears: Chronically Ill - Head Exam Head Exam: NORMAL INSPECTION - ENT Exam ENT Exam: Mucous Membranes Moist - Neck Exam Neck Exam: absent: Lymphadenopathy, Meningismus - Respiratory Exam Respiratory Exam: Decreased Breath Sounds - Cardiovascular Exam Cardiovascular Exam: +S1, +S2 - GI/Abdominal Exam GI & Abdominal Exam: Soft. absent: Tenderness Assessment and Plan - Assessment and Plan (Free Text) Plan: Assessment severe sepsis due to bilateral lower lobe HCAP, clinically improved and S/P treatment with antibiotics maculopapular rash probably from Zosyn, slowly improving gout HTN COPD GERD Plan S/P 6 days of Zyvox, Azactam and Doxycycline - continue to monitor clinically off antibiotics since he is at risk for nosocomial infections plan for gout as per PCP will continue to monitor clinically will continue to monitor rash which has improved
--- NOTE | 2018-04-03 17:07 | CP.PCM.CON ---
<Keisha Cervantes - Last Filed: 04/03/18 20:57> History of Present Illness - History of Present Illness History of Present Illness: General surgery consult note for Dr. Long-Keisha Cervantes, PGY-1 Pt S & E at bedside at 1620 72M w/PMH sig for gout consulted for Left hand abscess in setting of gouty flare. Pt admitted on 03/28 for symptoms compatiable with gout flare- diffuse body aches w/B/L hand swelling/pain, B/L knee pain. Pt on colchicine Pt seen/evaluated by ID with recommendations for Zyvox, Azactam, Doxycycline. Pt completed 7 day course as per ID. Pt seen/evaluated by orthopedic surgery with resultant left knee aspiration for left knee effusion- fluid analysis showed birefringent needle-shaped crystals consistent with uric acid. At this time, orthopedic surgery recommends rheumatology and hand surgery consult with diet modifications recommended to patient by a machine or machinery mechanic. Pt afebrile. Leukocytosis resolving from 29.3 on admission to 11.9 on 04/01. Pt currently on steroids, colchicine, and allopurinol. PMH: asthma, gout, HTN, COPD, possible DELLA, hx GERD PSH: Cataract sx, sinus sx All: PCN, levofloxacin SH: Denies current ETOH, tobacco or illicit drug use. Hx of ETOH/tobacco use, quit in 1982. FH: Non contributory Review of Systems - Review of Systems All systems: reviewed and no additional remarkable complaints except - Constitutional Constitutional: absent: Chills, Fever - EENT Eyes: absent: Change in Vision Nose/Mouth/Throat: absent: Sore Throat - Cardiovascular Cardiovascular: absent: Chest Pain, Palpitations - Respiratory Respiratory: absent: Cough - Gastrointestinal Gastrointestinal: absent: Abdominal Pain, Nausea, Vomiting - Genitourinary Genitourinary: absent: Change in Urinary Stream - Musculoskeletal Musculoskeletal: Arthralgias, Deformity (of joints), Joint Swelling, Numbness ( of hands/fingers), Tingling - Integumentary Integumentary: Swelling (at joints) - Neurological Neurological: Numbness, Tingling, Weakness ( ) - Psychiatric Psychiatric: absent: Change in Appetite Past Patient History - Infectious Disease Hx of Infectious Diseases: None - Past Social History Smoking Status: Former Smoker - CARDIAC Hx Hypertension: Yes - PULMONARY Hx Chronic Obstructive Pulmonary Disease (COPD): Yes - NEUROLOGICAL Hx Neurological Disorder: No - HEENT Hx HEENT Problems: No - ENDOCRINE/METABOLIC Hx Endocrine Disorders: No - HEMATOLOGICAL/ONCOLOGICAL Hx Blood Disorders: No - INTEGUMENTARY Hx Dermatological Problems: No - MUSCULOSKELETAL/RHEUMATOLOGICAL Hx Arthritis: Yes - GASTROINTESTINAL Hx Gastrointestinal Disorders: No - GENITOURINARY/GYNECOLOGICAL Hx Genitourinary Disorders: No - PSYCHIATRIC Hx Psychophysiologic Disorder: No Hx Substance Use: No - SURGICAL HISTORY Hx Surgeries: No - ANESTHESIA Hx Anesthesia: No Meds Allergies/Adverse Reactions: Allergies Allergy/AdvReac Type Severity Reaction Status Date / Time levofloxacin [From Levaquin] Allergy RASH Verified 03/28/18 01:35 Penicillins Allergy RASH Verified 03/28/18 06:48 - Medications Medications: Current Medications Acetaminophen (Tylenol 325mg Tab) 650 mg PO Q4H PRN PRN Reason: Pain, Mild (1-3) Albuterol/Ipratropium (Duoneb 3 Mg/0.5 Mg (3 Ml) Ud) 3 ml IH [id number] PRN PRN Reason: Wheezing Last Admin: 03/28/18 23:55 Dose: 3 ml Allopurinol (Zyloprim) 300 mg PO DAILY [facility] Last Admin: 04/03/18 09:55 Dose: 300 mg Alprazolam (Xanax) 0.125 mg PO TID PRN; Protocol PRN Reason: Anxiety Stop: 04/09/18 18:01 Arformoterol Tartrate (Brovana) 15 mcg IH [id number] [facility] Last Admin: 04/03/18 07:41 Dose: 15 mcg Budesonide (Pulmicort Respules) 1 mg IH [id number] [facility] Last Admin: 04/03/18 07:41 Dose: 1 mg Calcium/Vitamin D (Oscal-D 250 Mg-125 Units Tab) 1 tab PO DAILY [facility] Last Admin: 04/03/18 09:55 Dose: 1 tab Colchicine (Colocrys) 0.6 mg PO Q12 [facility] Last Admin: 04/03/18 10:03 Dose: 0.6 mg Enoxaparin Sodium (Lovenox) 40 mg SC DAILY [facility] PRN Reason: Protocol Last Admin: 04/03/18 09:56 Dose: 40 mg Famotidine (Pepcid) 40 mg PO HS [facility] Last Admin: 06/08/18 22:09 Dose: Not Given Loratadine (Claritin) 10 mg PO DAILY [facility] Last Admin: 04/03/18 09:55 Dose: 10 mg Losartan Potassium (Cozaar) 50 mg PO DAILY [facility] Last Admin: 04/03/18 09:55 Dose: 50 mg Methylprednisolone (Solu-Medrol) 20 mg IVP Q12 [facility] Last Admin: 04/03/18 09:55 Dose: 20 mg Montelukast Sodium (Singulair) 10 mg PO DAILY [facility] Last Admin: 04/03/18 09:55 Dose: 10 mg Quetiapine Fumarate (Seroquel) 12.5 mg PO HS [facility] PRN Reason: Protocol Last Admin: 04/02/18 22:09 Dose: Not Given Physical Exam - Constitutional Appears: Non-toxic, No Acute Distress - Head Exam Head Exam: ATRAUMATIC, NORMAL INSPECTION, NORMOCEPHALIC - Eye Exam Eye Exam: EOMI, Normal appearance - ENT Exam ENT Exam: Mucous Membranes Moist, Normal Exam - Neck Exam Neck exam: Positive for: Full Rom, Normal Inspection - Respiratory Exam Respiratory Exam: Clear to Auscultation Bilateral, NORMAL BREATHING PATTERN. absent: Chest Wall Tenderness - Cardiovascular Exam Cardiovascular Exam: REGULAR RHYTHM, +S1, +S2 - GI/Abdominal Exam GI & Abdominal Exam: Normal Bowel Sounds, Soft. absent: Tenderness - Extremities Exam Extremities exam: Positive for: joint swelling (swelling of joints of hands bilaterally with white markings over affected skin), tenderness (of hands bilaterally at joints, which are markedly swollen and erythematous). Negative for: normal inspection - Neurological Exam Neurological exam: Alert, CN II-XII Intact, Oriented x3 - Psychiatric Exam Psychiatric exam: Normal Affect, Normal Mood - Skin Skin Exam: Dry, Erythema (of skin over joints of hands), Intact, Warm Results - Vital Signs Recent Vital Signs: Last Vital Signs Temp 98.1 F 04/03/18 12:00 Pulse 91 H 04/03/18 12:00 Resp 20 04/03/18 12:00 BP 152/84 H 04/03/18 12:00 Pulse Ox 96 04/03/18 06:00 - Labs Result Diagrams: 04/01/18 06:30 04/03/18 07:30 Labs: Laboratory Results - last 24 hr 04/03/18 04/03/18 07:30 07:30 ESR 66 H Sodium 141 Potassium 3.6 Chloride 105 Carbon Dioxide 26 Anion Gap 13 BUN 23 H Creatinine 0.9 Est GFR ( Amer) > 60 Est GFR (Non-Af Amer) > 60 Random Glucose 111 H Uric Acid 5.6 Calcium 8.0 L Total Bilirubin 0.4 AST 26 ALT 50 Alkaline Phosphatase 51 Total Protein 5.7 L Albumin 3.0 Globulin 2.7 Albumin/Globulin Ratio 1.1 Assessment & Plan - Assessment and Plan (Free Text) Assessment: 72M w/PMH sig for gout consulted for Left hand abscess in setting of gouty flare Plan: FU MRI of left hand Pain control Continue gout medications Further recs pending imaging results & attending evaluation DW attending Helen, PGY-1 - Date & Time Date: 04/03/18 Time: 17:05 <Pineda Long - Last Filed: 04/04/18 07:50> Meds - Medications Medications: Current Medications Acetaminophen (Tylenol 325mg Tab) 650 mg PO Q4H PRN PRN Reason: Pain, Mild (1-3) Albuterol/Ipratropium (Duoneb 3 Mg/0.5 Mg (3 Ml) Ud) 3 ml IH [id number] PRN PRN Reason: Wheezing Last Admin: 03/28/18 23:55 Dose: 3 ml Allopurinol (Zyloprim) 300 mg PO DAILY [facility] Last Admin: 04/03/18 09:55 Dose: 300 mg Alprazolam (Xanax) 0.125 mg PO TID PRN; Protocol PRN Reason: Anxiety Stop: 04/09/18 18:01 Arformoterol Tartrate (Brovana) 15 mcg IH [id number] [facility] Last Admin: 04/04/18 07:44 Dose: 15 mcg Budesonide (Pulmicort Respules) 1 mg IH [id number] [facility] Last Admin: 04/04/18 07:44 Dose: 1 mg Calcium/Vitamin D (Oscal-D 250 Mg-125 Units Tab) 1 tab PO DAILY [facility] Last Admin: 04/03/18 09:55 Dose: 1 tab Colchicine (Colocrys) 0.6 mg PO Q12 BLANK Last Admin: 04/03/18 22:00 Dose: 0.6 mg Enoxaparin Sodium (Lovenox) 40 mg SC DAILY [facility] PRN Reason: Protocol Last Admin: 04/03/18 09:56 Dose: 40 mg Famotidine (Pepcid) 40 mg PO HS [facility] Last Admin: 04/03/18 21:41 Dose: 40 mg Loratadine (Claritin) 10 mg PO DAILY [facility] Last Admin: 04/03/18 09:55 Dose: 10 mg Losartan Potassium (Cozaar) 50 mg PO DAILY [facility] Last Admin: 04/03/18 09:55 Dose: 50 mg Methylprednisolone (Solu-Medrol) 20 mg IVP Q12 [facility] Last Admin: 04/03/18 21:41 Dose: 20 mg Montelukast Sodium (Singulair) 10 mg PO DAILY [facility] Last Admin: 04/03/18 09:55 Dose: 10 mg Quetiapine Fumarate (Seroquel) 12.5 mg PO HS [facility] PRN Reason: Protocol Last Admin: 04/03/18 21:42 Dose: 12.5 mg Results - Vital Signs Recent Vital Signs: Last Vital Signs Temp 97.9 F 04/04/18 06:00 Pulse 90 04/04/18 06:00 Resp 19 04/04/18 06:00 BP 143/80 04/04/18 06:00 Pulse Ox 96 04/04/18 06:00 - Labs Result Diagrams: 04/04/18 06:30 04/03/18 07:30 Labs: Laboratory Results - last 24 hr 04/03/18 04/03/18 04/04/18 07:30 07:30 04:35 WBC RBC Hgb Hct MCV MCH MCHC RDW Plt Count MPV ESR 66 H Sodium 141 Potassium 3.6 Chloride 105 Carbon Dioxide 26 Anion Gap 13 BUN 23 H Creatinine 0.9 Est GFR ( Amer) > 60 Est GFR (Non-Af Amer) > 60 Random Glucose 111 H Uric Acid 5.6 Calcium 8.0 L Total Bilirubin 0.4 AST 26 ALT 50 Alkaline Phosphatase 51 Total Protein 5.7 L Albumin 3.0 Globulin 2.7 Albumin/Globulin Ratio 1.1 Urine Color Yellow Urine Appearance Clear Urine pH 6.0 Ur Specific [place] 1.020 Urine Protein Negative Urine Glucose (UA) Negative Urine Ketones Negative Urine Blood Negative Urine Nitrate Negative Urine Bilirubin Negative Urine Urobilinogen 0.2 Ur Leukocyte Esterase Negative 04/04/18 06:30 WBC 9.5 D RBC 4.25 Hgb 12.7 L Hct 38.2 L MCV 89.9 MCH 29.9 MCHC 33.2 RDW 12.9 Plt Count 178 MPV 9.3 ESR Sodium Potassium Chloride Carbon Dioxide Anion Gap BUN Creatinine Est GFR ( Amer) Est GFR (Non-Af Amer) Random Glucose Uric Acid Calcium Total Bilirubin AST ALT Alkaline Phosphatase Total Protein Albumin Globulin Albumin/Globulin Ratio Urine Color Urine Appearance Urine pH Ur Specific [place] Urine Protein Urine Glucose (UA) Urine Ketones Urine Blood Urine Nitrate Urine Bilirubin Urine Urobilinogen Ur Leukocyte Esterase Assessment & Plan - Assessment and Plan (Free Text) Assessment: Dx Gouty Arthropathy/Significant hand involvement Mac-paplar rash ? Ab related Ez MRI Hand Follow up This consult done under my direct supervision Reg Long MD FACS
--- NOTE | 2018-04-03 19:17 | PN ---
DATE: 04/03/2018 PULMONARY PROGRESS NOTE REFERRING PHYSICIAN: Mary Roper MD SUBJECTIVE: The patient is lying in the bed, head at 45 degrees. Normal under one-to-one supervision. Awake, alert, oriented. Both hand swelling is improved. Still has some erythema and tenderness. No cough. No sputum production. No nausea. No vomiting. No diarrhea. OBJECTIVE: GENERAL: In no acute distress. VITAL SIGNS: Temperature is 98, heart rate is 91, respiratory rate is 20, blood pressure 152/84, pulse ox 96% on room air. HEENT: Moist mucous membranes. Crowded airway. NECK: Supple. No JVD. LUNGS: Have a fair airflow with rhonchi. HEART: S1 and S2. ABDOMEN: Soft, nontender. No organomegaly. EXTREMITIES: There is no edema of the lower extremity. Bilateral upper extremity fingers are swollen. Joints are swollen with erythema, which is mildly decreased since yesterday. MEDICATIONS: He is on Brovana inhaled twice a day, Claritin 10 mg daily, colchicine 0.6 mg twice a day, Cozaar 50 mg daily, DuoNeb every 6 hours p.r.n., Lovenox 40 mg daily, Pepcid 40 mg daily, Pulmicort inhaled twice a day, Seroquel 12.5 mg at bedtime, Singulair 10 mg daily, Solu-Medrol 20 mg every 12 hours, Tylenol p.r.n., Xanax 0.125 mg three times a day, allopurinol 300 mg daily. LABORATORY DATA: Shows sed rate is 66. Sodium 141, potassium 3.6, chloride 105, bicarbonate 26, BUN 23, creatinine 0.9, glucose 111, calcium is 8, uric acid 5.6, AST 26, ALT 50, alkaline phosphatase is 51. Albumin is 3. Microbiology: Blood culture, urine culture, synovial fluid cultures are no growth. IMPRESSION AND PLAN: Chronic obstructive lung disease, basilar infiltrate, gastroesophageal reflux disease, gouty arthritis affecting multiple upper extremity joints and also bilateral knee. He is on bronchodilator, on high-dose of colchicine 0.6 mg twice a day, also on allopurinol 300 mg daily. Still on steroids 20 mg daily. Clinically, he is improved. Encephalopathies also improved. Swelling and edema is improved. Continue bronchodilator. Spoke to nursing staff. Fall precaution. Follow up labs in the morning. Thank you and we will follow with you. Morgan Coughlin MD
--- NOTE | 2018-04-04 01:50 | CON ---
DATE: HISTORY OF PRESENT ILLNESS: Patient is a 72-year-old male with a history of gout admitted to medical side for diffuse body ache. Psychiatry is following him due to recent history of confusion as well as hallucination. I reviewed Dr. Viki Cervantes 's note and met with patient at bedside this morning. Agree with Dr. Viki Cervantes. Patient is quite pleasant. He is well oriented to month, year, location, and circumstances. Patient reports that he is tolerating current medications that were prescribed to him and that he slept very well last night. Patient indicates with some relief that hallucinations have resolved. Specifically indicates that the visual hallucinations of seeing friends and family members at bedside, no longer exists. He denies any auditory hallucinations. He has been in good control and cooperative with staff members, and there has been no issues regarding his behavior. Denies any depression. He is hopeful about the future, generally coherent, responsive to relevant questioning. Insight and judgement are greatly improved. RELEVANT PSYCHIATRIC MEDICATIONS: Include Seroquel 12.5 mg at bedtime and Xanax mg t.i.d. p.r.n. Labs and vitals were reviewed by this provider. IMPRESSION: Patient has resolving delirium associated with hallucinations which have resolved at this time. RECOMMENDATIONS: We will continue with current treatment and plan. Patient should continue with Seroquel during the weekends to ensure that hallucinations have resolved. In the meantime, Dr. Cervantes will follow up with patient on 04/05/2018, to ensure that patient maintains consistency of improvement. Jeaneth Mansfield MD
--- NOTE | 2018-04-04 05:13 | PN ---
DATE: 04/03/2018 SUBJECTIVE: The patient is 72-year-old male. The patient was seen and examined at the bedside, looking much better, asthmatic yesterday or day before yesterday. No fever. No chills. No nausea, vomiting. Not look like in distress, but still has pain in the knuckles of hand therapist, especially, left hand second finger. No hematuria or hematochezia. PHYSICAL EXAMINATION: VITAL SIGNS: Temperature 98, pulse 92, respiratory rate 18, blood pressure 139/81, pulse oximetry 96% on room air. HEENT: Head normocephalic, atraumatic. Eyes PERRLA. Extraocular muscles intact. Conjunctivae clear. Nose patent. Mucous membrane moist. NECK: Supple. No carotid bruit. No JVD or thyromegaly. CHEST: Bilaterally symmetrical. HEART: S1 and S2 positive. LUNGS: Clear to auscultation. ABDOMEN: Soft, bowel sounds positive. No organomegaly. EXTREMITIES: Both hands, fingers are tender, has multiple swelling, red and warm. NEUROLOGICAL: The patient is awake, alert, moving all 4 extremities. No focal deficits. MEDICATIONS: Allopurinol, Xanax, Brovana, Pulmicort, vitamin D, Colcrys, Lovenox, Pepcid, Claritin, Cozaar, Solu-Medrol, Singulair, Seroquel. LABORATORY DATA: White blood cells 11.9, Hemoglobin 12.4, hematocrit 36.7, platelet 186. Sodium 131, potassium 3.6, BUN 23, creatinine 0.9, glucose 111. ASSESSMENT AND PLAN: Mr. 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 Chronic obstructive pulmonary disease, gastroesophageal reflux disease, dyspepsia. According to Infectious Disease, continue antibiotics, Zosyn, 6 days of Azactam, doxycycline. Continue monitoring clinically off the antibiotics since he has had nosocomial infection. Appreciated Dr. Deejay Galarza's notes and Dr. Edwards's notes. Looks like in the left hand, there is like abscess in the finger, is fluctuating. Gouty flare up, bilateral hand swelling is still there, bilateral knee pain and Dr. Jenkins is taking care of that. He did aspiration. Continue present treatment. Gastrointestinal and deep venous thrombosis prophylaxis. History of asthma. We will follow up. Mary Roper MD
[2018-04-04 06:11] LABS: URINE BILIRUBIN NEGATIVE (NEGATIVE); URINE BLOOD NEGATIVE (NEGATIVE); URINE GLUCOSE (UA) NEGATIVE (NEGATIVE); URINE LEUKOCYTE ESTERASE NEGATIVE Leu/uL (NEGATIVE); URINE PROTEIN NEGATIVE mg/dL (<30 mg/dL); URINE UROBILINOGEN 0.2 E.U./dL (<1 E.U./dL)
[2018-04-04 06:20] LABS: URINE APPEARANCE CLEAR (CLEAR); URINE COLOR YELLOW (YELLOW)
[2018-04-04 07:39] LABS: HEMOGLOBIN 12.7 g/dL (14.0-18.0); MEAN CELL VOLUME 89.9 fl (80.0-105.0); MEAN CORPUSCULAR HEMOGLOBIN 29.9 pg (25.0-35.0); MEAN CORPUSCULAR HGB CONC 33.2 g/dl (31.0-37.0); MEAN PLATELET VOLUME 9.3 fl (7.0-11.0); RBC 4.25 10^6/uL (3.5-6.1); RED CELL DISTRIBUTION WIDTH 12.9 % (11.5-14.5); WHITE BLOOD COUNT 9.5 10^3/ul (4.5-11.0)
[2018-04-04] MEDS: Arformoterol 15 mcg/2 ml Inh Sol IH SCH ×2 (07:44→19:15)
[2018-04-04] MEDS: Budesonide 0.5 mg/2 ml Inhal Susp UD IH SCH ×2 (07:44→19:15)
--- NOTE | 2018-04-04 07:52 | CP.PCM.PCO ---
Physician Communication Note - Physician Communication Note Physician Communication Note: Gouty Arthropathy==Rx MRI Hand
[2018-04-04 08:10] LABS: ALBUMIN 2.9 g/dL (3.0-4.8); ALT/SGPT 62 U/L (7-56); AST/SGOT 45 U/L (17-59); BLOOD UREA NITROGEN 26 mg/dL (7-21); CALCIUM 8.5 mg/dL (8.4-10.5); GFR AFRICAN-AMERICAN > 60; GFR NON-AFRICAN AMERICAN > 60
[2018-04-04] MEDS: MethylPREDNISolone 40 mg Vial IVP SCH ×2 (09:44→21:00)
[2018-04-04] MEDS: Calcium-Vit D 250 mg-125 Units Tab UD PO SCH (09:44)
[2018-04-04] MEDS: Enoxaparin 40 mg Syringe SC SCH (09:45)
--- NOTE | 2018-04-04 10:09 | CP.PCM.PN ---
Subjective - Date & Time of Evaluation Date of Evaluation: 04/04/18 Time of Evaluation: 10:09 - Subjective Subjective: General surgery progress note for Dr. Long-Keisha Cervantes, PGY-1 Pt S & E at bedside at 0920 Pt continues with bilateral joint swelling/pain of hands/fingers. Denies F & C , N & V. Tolerating diet. No other complaints. Objective - Vital Signs/Intake and Output Vital Signs (last 24 hours): Temp Pulse Resp BP Pulse Ox 97.9 F 94 H 19 136/86 96 04/04/18 06:00 04/04/18 09:44 04/04/18 06:00 04/04/18 09:44 04/04/18 06:00 Intake and Output: 04/04/18 04/04/18 06:59 18:59 Intake Total 240 Output Total 800 Balance -560 - Medications Medications: Current Medications Acetaminophen (Tylenol 325mg Tab) 650 mg PO Q4H PRN PRN Reason: Pain, Mild (1-3) Albuterol/Ipratropium (Duoneb 3 Mg/0.5 Mg (3 Ml) Ud) 3 ml IH [id number] PRN PRN Reason: Wheezing Last Admin: 03/28/18 23:55 Dose: 3 ml Allopurinol (Zyloprim) 300 mg PO DAILY [facility] Last Admin: 04/04/18 09:44 Dose: 300 mg Alprazolam (Xanax) 0.125 mg PO TID PRN; Protocol PRN Reason: Anxiety Stop: 04/09/18 18:01 Arformoterol Tartrate (Brovana) 15 mcg IH [id number] BLANK Last Admin: 04/04/18 07:44 Dose: 15 mcg Budesonide (Pulmicort Respules) 1 mg IH [id number] BLANK Last Admin: 04/04/18 07:44 Dose: 1 mg Calcium/Vitamin D (Oscal-D 250 Mg-125 Units Tab) 1 tab PO DAILY [facility] Last Admin: 04/04/18 09:44 Dose: 1 tab Colchicine (Colocrys) 0.6 mg PO Q12 [facility] Last Admin: 04/04/18 09:44 Dose: 0.6 mg Enoxaparin Sodium (Lovenox) 40 mg SC DAILY [facility] PRN Reason: Protocol Last Admin: 06/10/18 09:45 Dose: 40 mg Famotidine (Pepcid) 40 mg PO HS [facility] Last Admin: 04/03/18 21:41 Dose: 40 mg Loratadine (Claritin) 10 mg PO DAILY [facility] Last Admin: 04/04/18 09:44 Dose: 10 mg Losartan Potassium (Cozaar) 50 mg PO DAILY [facility] Last Admin: 04/04/18 09:44 Dose: 50 mg Methylprednisolone (Solu-Medrol) 20 mg IVP Q12 [facility] Last Admin: 04/04/18 09:44 Dose: 20 mg Montelukast Sodium (Singulair) 10 mg PO DAILY [facility] Last Admin: 04/04/18 09:47 Dose: 10 mg Quetiapine Fumarate (Seroquel) 12.5 mg PO HS [facility] PRN Reason: Protocol Last Admin: 04/03/18 21:42 Dose: 12.5 mg - Labs Labs: 04/04/18 06:30 04/04/18 06:30 PT 14.5 SECONDS (9.4-12.5) H 03/28/18 02:00 INR 1.27 (0.93-1.08) H 03/28/18 02:00 APTT 33.7 Seconds (25.1-36.5) 03/28/18 02:00 - Constitutional Appears: Non-toxic, No Acute Distress - Head Exam Head Exam: ATRAUMATIC, NORMAL INSPECTION, NORMOCEPHALIC - Eye Exam Eye Exam: EOMI, Normal appearance - ENT Exam ENT Exam: Mucous Membranes Moist, Normal Exam - Neck Exam Neck Exam: Full ROM, Normal Inspection - Respiratory Exam Respiratory Exam: NORMAL BREATHING PATTERN - Cardiovascular Exam Cardiovascular Exam: REGULAR RHYTHM, +S1, +S2 - GI/Abdominal Exam GI & Abdominal Exam: Soft. absent: Distended, Firm, Guarding, Tenderness - Extremities Exam Extremities Exam: absent: Normal Inspection (severe swelling of joints of fingers, white discolorations over joints) - Neurological Exam Neurological Exam: Alert, Awake, CN II-XII Intact, Oriented x3 - Psychiatric Exam Psychiatric exam: Normal Affect, Normal Mood - Skin Skin Exam: Dry, Erythema (of finger joints bilaterally), Intact, Normal Color ( excluding hands/fingers), Warm Assessment and Plan - Assessment and Plan (Free Text) Assessment: 72M w/PMH sig for gout consulted for Left hand abscess in setting of gouty flare Plan: FU MRI of left hand pain control gout meds further recs pending imaging results DW attending Helen, PGY-1
--- NOTE | 2018-04-04 13:03 | CP.PCM.PN ---
Subjective - Date & Time of Evaluation Date of Evaluation: 04/04/18 Time of Evaluation: 10:35 - Subjective Subjective: Comfortable in bed, no fevers. Objective - Vital Signs/Intake and Output Vital Signs (last 24 hours): Temp Pulse Resp BP Pulse Ox 97.9 F 90 19 143/80 96 04/04/18 06:00 04/04/18 06:00 04/04/18 06:00 04/04/18 06:00 04/04/18 06:00 Intake and Output: 04/04/18 04/04/18 06:59 18:59 Intake Total 240 Output Total 800 Balance -560 - Medications Medications: Current Medications Acetaminophen (Tylenol 325mg Tab) 650 mg PO Q4H PRN PRN Reason: Pain, Mild (1-3) Albuterol/Ipratropium (Duoneb 3 Mg/0.5 Mg (3 Ml) Ud) 3 ml IH [id number] PRN PRN Reason: Wheezing Last Admin: 03/28/18 23:55 Dose: 3 ml Allopurinol (Zyloprim) 300 mg PO DAILY [facility] Last Admin: 04/03/18 09:55 Dose: 300 mg Alprazolam (Xanax) 0.125 mg PO TID PRN; Protocol PRN Reason: Anxiety Stop: 04/09/18 18:01 Arformoterol Tartrate (Brovana) 15 mcg IH [id number] [facility] Last Admin: 04/04/18 07:44 Dose: 15 mcg Budesonide (Pulmicort Respules) 1 mg IH [id number] [facility] Last Admin: 04/04/18 07:44 Dose: 1 mg Calcium/Vitamin D (Oscal-D 250 Mg-125 Units Tab) 1 tab PO DAILY [facility] Last Admin: 04/03/18 09:55 Dose: 1 tab Colchicine (Colocrys) 0.6 mg PO Q12 [facility] Last Admin: 04/03/18 22:00 Dose: 0.6 mg Enoxaparin Sodium (Lovenox) 40 mg SC DAILY [facility] PRN Reason: Protocol Last Admin: 04/03/18 09:56 Dose: 40 mg Famotidine (Pepcid) 40 mg PO HS [facility] Last Admin: 04/03/18 21:41 Dose: 40 mg Loratadine (Claritin) 10 mg PO DAILY [facility] Last Admin: 04/03/18 09:55 Dose: 10 mg Losartan Potassium (Cozaar) 50 mg PO DAILY [facility] Last Admin: 04/03/18 09:55 Dose: 50 mg Methylprednisolone (Solu-Medrol) 20 mg IVP Q12 [facility] Last Admin: 04/03/18 21:41 Dose: 20 mg Montelukast Sodium (Singulair) 10 mg PO DAILY [facility] Last Admin: 04/03/18 09:55 Dose: 10 mg Quetiapine Fumarate (Seroquel) 12.5 mg PO HS [facility] PRN Reason: Protocol Last Admin: 04/03/18 21:42 Dose: 12.5 mg - Labs Labs: 04/04/18 06:30 04/04/18 06:30 PT 14.5 SECONDS (9.4-12.5) H 03/28/18 02:00 INR 1.27 (0.93-1.08) H 03/28/18 02:00 APTT 33.7 Seconds (25.1-36.5) 03/28/18 02:00 - Constitutional Appears: Chronically Ill - Head Exam Head Exam: NORMAL INSPECTION - ENT Exam ENT Exam: Mucous Membranes Moist - Neck Exam Neck Exam: absent: Lymphadenopathy, Meningismus - Respiratory Exam Respiratory Exam: Decreased Breath Sounds - Cardiovascular Exam Cardiovascular Exam: +S1, +S2 - GI/Abdominal Exam GI & Abdominal Exam: Soft. absent: Tenderness Assessment and Plan - Assessment and Plan (Free Text) Plan: Assessment severe sepsis due to bilateral lower lobe HCAP, clinically improved and S/P treatment with antibiotics maculopapular rash probably from Zosyn, slowly improving gout HTN COPD GERD Plan S/P 6 days of Zyvox, Azactam and Doxycycline - continue to monitor clinically off antibiotics since he is at risk for hospital-acquired infections plan for gout as per PCP will continue to monitor clinically will continue to monitor rash which has improved
--- NOTE | 2018-04-04 21:06 | PN ---
DATE: 04/04/2018 PULMONARY PROGRESS NOTE REFERRING PHYSICIAN: Mary Roper MD. SUBJECTIVE: The patient is lying in the bed, head at 45 degrees. Night was unremarkable. Feels better. No headache. No rhinitis. No cough. No nausea. No vomiting. No diarrhea. Both hands' swelling and erythema have improved. PHYSICAL EXAMINATION: GENERAL: In no acute distress. VITAL SIGNS: Temperature is 98, heart rate is 89, respiratory rate is 20, blood pressure 136/86. HEENT: Moist mucous membrane. No ulcer or thrush noted. NECK: Supple. No JVD. LUNGS: Have a fair airflow with rhonchi. HEART: S1, S2. ABDOMEN: Soft, nontender. No organomegaly. EXTREMITIES: No edema. Both hands' swelling, edema, and erythema have improved. NEUROLOGIC: Awake, alert, follows simple command. MEDICATIONS: He is on Brovana inhaled twice a day, Claritin 10 mg daily, colchicine 0.6 mg twice a day, Cozaar 50 mg daily, DuoNeb every 6 hours p.r.n., Lovenox 40 mg subcu daily, Pepcid 40 mg daily, Pulmicort inhaled twice a day, Seroquel 12.5 mg at bedtime, Singulair 10 mg daily, Solu-Medrol 20 mg every 12 hours, Tylenol p.r.n., Xanax 0.25 mg three times a day p.r.n., allopurinol 300 mg daily. LABORATORY DATA: Shows hemoglobin 12.7, hematocrit 38.2, WBC 9.5, platelet count is 178. Sodium 144, potassium 3.8, chloride 107, bicarbonate 30, BUN 26, creatinine 0.8, glucose 120. Uric acid was 5.6 yesterday. Calcium is 8.5. AST 45, ALT 62, alkaline phosphatase is 57. Albumin is 2.9. IMPRESSION AND PLAN: Chronic obstructive lung disease, basilar infiltrate, gastroesophageal reflux disease, gouty arthritis affecting multiple joints, bilateral knee pain status post right knee injection. Pulmonary point view, doing well. Continue bronchodilator. Keep head at 45 degrees. Aspiration precaution, sleep apnea precaution. Continue high-dose of colchicine, steroids, and allopurinol. Out of bed to chair if possible. Thank you and we will follow with you. Morgan Coughlin MD [facility] # [id number]
--- NOTE | 2018-04-05 03:52 | PN ---
DATE: 04/04/2018 SUBJECTIVE: The patient is a 72-year-old male. Patient was seen and examined at the bedside on 04/04/2018. Looking comfortable, awake and alert, oriented x3. Feels better. No need of one-to-one and no headache; no rhinitis; no coughing; no shortness of breath, nausea, vomiting or diarrhea. Both hands swelling and erythema has been improved but puffiness is still there. PHYSICAL EXAMINATION: VITAL SIGNS: Temperature 98.1, heart rate 89, respiratory rate 20, blood pressure 136/86. HEENT: Head: Normocephalic, atraumatic. Eyes: PERRLA. Extraocular muscles intact. Conjunctivae clear. Nose patent. Mucous membrane moist. NECK: Supple. No carotid bruit. No JVD or thyromegaly. CHEST: Bilaterally symmetrical. HEART: S1 and S2 positive. LUNGS: Clear to auscultation. ABDOMEN: Soft. Bowel sounds present. No organomegaly. EXTREMITIES: No edema. No cyanosis. Both hands' swelling, edema and erythema have been improved, but still there. NEUROLOGIC: The patient is awake and alert. Moving all 4 extremities. No focal deficits. MEDICATIONS: Brovana, Claritin, colchicine, Cozaar, DuoNeb, Lovenox, Pepcid, Pulmicort, Seroquel, Singulair, Solu-Medrol tapering doses, Xanax, and allopurinol. LABORATORY DATA: Hemoglobin 12.7, hematocrit 38.2, white blood cells 9.5, platelets 178. Sodium 144, potassium 3.8, BUN 23, creatinine 0.8. AST 45, ALT 62. ASSESSMENT AND PLAN: Mr. Jeffry Denson is a 72-year-old male with a history of chronic obstructive lung disease, bibasilar infiltrates, gastroesophageal reflux disease, gouty arthritis affecting multiple joints especially hands, small joints and both knees. Dr. Jenkins gave injection to the right knee and aspirated synovial fluid and send to Pathology. Continue bronchodilator, aspiration precaution, sleep apnea precaution. Continue high-dose of colchicine, steroid, and allopurinol. Out-of-bed to physical therapy. History of fever-induced psychosis, and with decreased fever, now he is getting better. Broadcast Journalist and neurologist are on the case. Repeat labs. We will follow. Mary Roper MD [facility] # [id number]
--- NOTE | 2018-04-05 08:10 | CP.PCM.PN ---
Subjective - Date & Time of Evaluation Date of Evaluation: 04/05/18 Time of Evaluation: 07:08 - Subjective Subjective: Veto Tabares PGY1 Surgery Progress Note for Dr. Long Patient seen and examined bedside. states pain is improving and denies fevers/ chills/nausea/vomiting Objective - Vital Signs/Intake and Output Vital Signs (last 24 hours): Temp Pulse Resp BP Pulse Ox 97.8 F 82 18 155/95 H 94 L 04/05/18 05:43 04/05/18 05:43 04/05/18 05:43 04/05/18 05:43 04/05/18 05:43 Intake and Output: 04/05/18 04/05/18 06:59 18:59 Intake Total 960 Output Total 1200 Balance -240 - Medications Medications: Current Medications Acetaminophen (Tylenol 325mg Tab) 650 mg PO Q4H PRN PRN Reason: Pain, Mild (1-3) Albuterol/Ipratropium (Duoneb 3 Mg/0.5 Mg (3 Ml) Ud) 3 ml IH [id number] PRN PRN Reason: Wheezing Last Admin: 03/28/18 23:55 Dose: 3 ml Allopurinol (Zyloprim) 300 mg PO DAILY [facility] Last Admin: 04/04/18 09:44 Dose: 300 mg Alprazolam (Xanax) 0.125 mg PO TID PRN; Protocol PRN Reason: Anxiety Stop: 04/09/18 18:01 Arformoterol Tartrate (Brovana) 15 mcg IH [id number] [facility] Last Admin: 04/04/18 19:15 Dose: 15 mcg Budesonide (Pulmicort Respules) 1 mg IH [id number] [facility] Last Admin: 04/04/18 19:15 Dose: 1 mg Calcium/Vitamin D (Oscal-D 250 Mg-125 Units Tab) 1 tab PO DAILY [facility] Last Admin: 04/04/18 09:44 Dose: 1 tab Colchicine (Colocrys) 0.6 mg PO Q12 [facility] Last Admin: 04/04/18 21:01 Dose: 0.6 mg Enoxaparin Sodium (Lovenox) 40 mg SC DAILY [facility] PRN Reason: Protocol Last Admin: 04/04/18 09:45 Dose: 40 mg Famotidine (Pepcid) 40 mg PO HS [facility] Last Admin: 04/04/18 21:00 Dose: 40 mg Loratadine (Claritin) 10 mg PO DAILY [facility] Last Admin: 04/04/18 09:44 Dose: 10 mg Losartan Potassium (Cozaar) 50 mg PO DAILY [facility] Last Admin: 04/04/18 09:44 Dose: 50 mg Methylprednisolone (Solu-Medrol) 20 mg IVP Q12 [facility] Last Admin: 04/04/18 21:00 Dose: 20 mg Montelukast Sodium (Singulair) 10 mg PO DAILY [facility] Last Admin: 04/04/18 09:47 Dose: 10 mg Quetiapine Fumarate (Seroquel) 12.5 mg PO [facility] PRN Reason: Protocol Last Admin: 04/04/18 21:01 Dose: 12.5 mg - Labs Labs: 04/04/18 06:30 04/04/18 06:30 PT 14.5 SECONDS (9.4-12.5) H 03/28/18 02:00 INR 1.27 (0.93-1.08) H 03/28/18 02:00 APTT 33.7 Seconds (25.1-36.5) 03/28/18 02:00 - Constitutional Appears: Well, Non-toxic, No Acute Distress - Head Exam Head Exam: NORMAL INSPECTION - Eye Exam Eye Exam: Normal appearance Pupil Exam: NORMAL ACCOMODATION - ENT Exam ENT Exam: Normal Exam - Neck Exam Neck Exam: Normal Inspection - Respiratory Exam Respiratory Exam: NORMAL BREATHING PATTERN - Cardiovascular Exam Cardiovascular Exam: RRR - GI/Abdominal Exam GI & Abdominal Exam: Soft, Normal Bowel Sounds - Extremities Exam Extremities Exam: Full ROM, Tenderness (joints) Additional comments: finger joints pain pain in left big toe w/ white discoloration Assessment and Plan - Assessment and Plan (Free Text) Assessment: 72yo M with PMH HTN, COPD, gout arthritis presenting for sepsis 2/2 pneumonia, found to have acute gouty flare. Surgery consulted for gout vs septic arthritis Plan joint pain likely 2/2 acute gout - joint aspiration + birefringent needle-shaped crystals consistent w/ uric acid - afebrile, with no leukocytosis currently - pain improving on colchicine, allopurinol and steroids - ESR was elevated - MRI UE joint pending - plan for depomedrol injections bedside post-MRI Case was reviewed and discussed with Dr. Long
[2018-04-05] MEDS: Arformoterol 15 mcg/2 ml Inh Sol IH SCH ×2 (08:27→20:40)
[2018-04-05] MEDS: Budesonide 0.5 mg/2 ml Inhal Susp UD IH SCH ×2 (08:27→20:40)
--- NOTE | 2018-04-05 09:08 | CP.PCM.PCO ---
Physician Communication Note - Physician Communication Note Physician Communication Note: Poss Intralesional steroid posr MRI
[2018-04-05] MEDS: Calcium-Vit D 250 mg-125 Units Tab UD PO SCH (09:43)
[2018-04-05] MEDS: MethylPREDNISolone 40 mg Vial IVP SCH ×2 (09:44→23:10)
[2018-04-05] MEDS: Enoxaparin 40 mg Syringe SC SCH (09:44)
--- NOTE | 2018-04-05 13:54 | CP.PCM.PN ---
Subjective - Date & Time of Evaluation Date of Evaluation: 04/05/18 Time of Evaluation: 11:00 - Subjective Subjective: Patient in MRI for upper extremity pain and swelling. No fevers. Objective - Vital Signs/Intake and Output Vital Signs (last 24 hours): Temp Pulse Resp BP Pulse Ox 97.8 F 82 18 155/95 H 94 L 04/05/18 05:43 04/05/18 05:43 04/05/18 05:43 04/05/18 05:43 04/05/18 05:43 Intake and Output: 04/05/18 04/05/18 06:59 18:59 Intake Total 960 Output Total 1200 Balance -240 - Medications Medications: Current Medications Acetaminophen (Tylenol 325mg Tab) 650 mg PO Q4H PRN PRN Reason: Pain, Mild (1-3) Albuterol/Ipratropium (Duoneb 3 Mg/0.5 Mg (3 Ml) Ud) 3 ml IH [id number] PRN PRN Reason: Wheezing Last Admin: 03/28/18 23:55 Dose: 3 ml Allopurinol (Zyloprim) 300 mg PO DAILY [facility] Last Admin: 04/05/18 09:57 Dose: 300 mg Alprazolam (Xanax) 0.125 mg PO TID PRN; Protocol PRN Reason: Anxiety Stop: 04/09/18 18:01 Arformoterol Tartrate (Brovana) 15 mcg IH [id number] [facility] Last Admin: 04/05/18 08:27 Dose: 15 mcg Budesonide (Pulmicort Respules) 1 mg IH [id number] [facility] Last Admin: 04/05/18 08:27 Dose: 0.5 mg Calcium/Vitamin D (Oscal-D 250 Mg-125 Units Tab) 1 tab PO DAILY [facility] Last Admin: 04/05/18 09:43 Dose: 1 tab Colchicine (Colocrys) 0.6 mg PO Q12 [facility] Last Admin: 04/05/18 09:38 Dose: 0.6 mg Enoxaparin Sodium (Lovenox) 40 mg SC DAILY [facility] PRN Reason: Protocol Last Admin: 04/05/18 09:44 Dose: 40 mg Famotidine (Pepcid) 40 mg PO HS [facility] Last Admin: 04/04/18 21:00 Dose: 40 mg Loratadine (Claritin) 10 mg PO DAILY [facility] Last Admin: 04/05/18 09:43 Dose: 10 mg Losartan Potassium (Cozaar) 50 mg PO DAILY [facility] Last Admin: 04/05/18 09:43 Dose: 50 mg Methylprednisolone (Solu-Medrol) 20 mg IVP Q12 [facility] Last Admin: 04/05/18 09:44 Dose: 20 mg Montelukast Sodium (Singulair) 10 mg PO DAILY [facility] Last Admin: 04/05/18 09:42 Dose: 10 mg Quetiapine Fumarate (Seroquel) 12.5 mg PO HS [facility] PRN Reason: Protocol Last Admin: 04/04/18 21:01 Dose: 12.5 mg - Labs Labs: 04/04/18 06:30 04/04/18 06:30 PT 14.5 SECONDS (9.4-12.5) H 03/28/18 02:00 INR 1.27 (0.93-1.08) H 03/28/18 02:00 APTT 33.7 Seconds (25.1-36.5) 03/28/18 02:00 - Constitutional Appears: Non-toxic - Head Exam Head Exam: NORMAL INSPECTION Assessment and Plan - Assessment and Plan (Free Text) Plan: Assessment S/P severe sepsis due to bilateral lower lobe HCAP, clinically improved and S/P treatment with antibiotics maculopapular rash probably from Zosyn, slowly improving gout HTN COPD GERD Plan S/P 6 days of Zyvox, Azactam and Doxycycline - continue to monitor clinically off antibiotics since he is at risk for healthcare-associated infections plan for gout as per PCP - follow up MRI results will continue to monitor clinically will continue to monitor rash which has improved
--- NOTE | 2018-04-05 22:56 | PN ---
DATE: 04/05/2018 FOLLOWUP NOTE SUBJECTIVE: The patient was seen last week. Initially, the patient presented to be delirious most likely due to infection and hand abscess. Patient was started on small dose of Seroquel at the nighttime for visual hallucinations. Over the weekend, Dr. Mansfield saw this patient and this automobile and property underwriter is taking over. The patient overall presented much better to compare with last week. The patient presented to be alert and oriented, pleasant, cooperative. The patient reported that visual hallucinations are subsided. This automobile and property underwriter educated that Seroquel will be given only as needed for psychotic symptoms and this automobile and property underwriter will follow up on this patient every other day. The patient verbalized understanding. The patient said that he wants to go home, but he is aware that he needs to stay in the hospital and complete the treatment. Besides that, there is no agitation or aggression. The patient is off one to one, as of now tolerated that well. Labs reviewed. Medications reviewed. Dr. Galarza, Infectious Disease, notes reviewed as well. The patient is on Zyvox, Azactam, and doxycycline. The patient got MRI today, but there is no report yet. As per note from the nursing staff, the patient is not agitated, not aggressive and less psychotic. MENTAL STATUS EXAMINATION: The patient appears to be alert and oriented, pleasant, cooperative, intermittent eye contact. The patient does not remember this automobile and property underwriter, but he is aware that he is in the hospital and the reason for him to be admitted to the medical side. The patient reported that he feels little better. Denied any psychotic symptoms. Eye contact is fair. Mood described, I feel better. Affect was more reactive, mood congruent. Thought process coherent and goal directed. Thought content, the patient denied visual, auditory, or tactile hallucinations, most recently was 2 days ago. Insight and judgment improving. Impulses are well controlled. IMPRESSION: The patient has delirium, which is improving. PLAN: Continue current management. Continue current medications. Seroquel only as needed in case of psychotic symptoms. Delirium is improving. This automobile and property underwriter will follow up on this patient every other day. The patient pose no imminent danger to self or others. Should you have any questions, give me a call back. Thank you very much for letting me participate in care of your patient. Viki Cervantes MD [facility] # [id number]
--- NOTE | 2018-04-06 02:45 | PN ---
DATE: 04/05/2018 PULMONARY PROGRESS NOTE REFERRING PHYSICIAN: Mary Roper MD. SUBJECTIVE: He is out of bed to chair, just come back on MRI. Feels much better. No headache. No rhinitis. No nausea. No vomiting. No leg swelling. Hand and finger joints slowly improving. OBJECTIVE: GENERAL: In no acute distress. VITAL SIGNS: Temperature is 98, heart rate is 80, respiratory rate is 18, blood pressure 166/84, pulse ox 94% on room air. HEENT: Moist mucous membrane. Crowded airway. NECK: Supple. No JVD. LUNGS: Have a fair airflow. No rhonchi. HEART: S1 and S2. ABDOMEN: Soft, nontender. No organomegaly. EXTREMITIES: No edema of the lower extremity. Both hands swelling and the joint tenderness is better. NEUROLOGICAL: Awake and alert. Follows simple command. MEDICATIONS: He is on Brovana inhaled twice a day, Claritin 10 mg daily, colchicine 0.6 mg twice a day, Cozaar 50 mg daily, albuterol/Atrovent nebulizer every 6 hours p.r.n., Lovenox 40 mg daily, vitamin D daily, also getting Pepcid 40 mg at bedtime, Pulmicort inhaled twice a day, Seroquel 12.5 mg at bedtime p.r.n., Singulair 10 mg daily, Solu-Medrol 20 mg twice a day, Tylenol p.r.n., Xanax 3 times a day p.r.n., allopurinol 300 mg daily. LABORATORY DATA: Reviewed. No new lab is available since yesterday. His MRI of the hands done, report is pending. IMPRESSION AND PLAN: Chronic obstructive lung disease, basilar infiltrate, gastroesophageal reflux disease, gouty arthritis affecting multiple hands and finger joints with tophi formation, also with involvement of the right knee requiring steroid injection. Has MRI of the fingers done, report is pending. We will continue Solu-Medrol. Continue colchicine. Continue allopurinol. Sleep apnea precaution. Gastric prophylaxis. Antibiotics as per Infectious Diseases. Thank you and we will follow with you. Morgan Coughlin MD [facility] # [id number]
--- NOTE | 2018-04-06 07:23 | CP.PCM.PN ---
Subjective - Date & Time of Evaluation Date of Evaluation: 04/06/18 Time of Evaluation: 06:42 - Subjective Subjective: Veto Tabares PGY1 Surgery Progress Note for Dr. Long Patient was seen and examined at bedside. states pain has improved. denies fevers/chills, n/v Objective - Vital Signs/Intake and Output Vital Signs (last 24 hours): Temp Pulse Resp BP Pulse Ox 98.7 F 77 20 154/90 H 98 04/06/18 06:00 04/06/18 06:00 04/06/18 06:00 04/06/18 06:00 04/06/18 06:00 Intake and Output: 04/06/18 04/06/18 06:59 18:59 Intake Total 120 Output Total 1400 Balance -1280 - Medications Medications: Current Medications Acetaminophen (Tylenol 325mg Tab) 650 mg PO Q4H PRN PRN Reason: Pain, Mild (1-3) Albuterol/Ipratropium (Duoneb 3 Mg/0.5 Mg (3 Ml) Ud) 3 ml IH [id number] PRN PRN Reason: Wheezing Last Admin: 03/28/18 23:55 Dose: 3 ml Allopurinol (Zyloprim) 300 mg PO DAILY [facility] Last Admin: 04/05/18 09:57 Dose: 300 mg Alprazolam (Xanax) 0.125 mg PO TID PRN; Protocol PRN Reason: Anxiety Stop: 04/09/18 18:01 Arformoterol Tartrate (Brovana) 15 mcg IH [id number] [facility] Last Admin: 04/05/18 20:40 Dose: 15 mcg Budesonide (Pulmicort Respules) 1 mg IH [id number] [facility] Last Admin: 04/05/18 20:40 Dose: 1 mg Calcium/Vitamin D (Oscal-D 250 Mg-125 Units Tab) 1 tab PO DAILY [facility] Last Admin: 04/05/18 09:43 Dose: 1 tab Colchicine (Colocrys) 0.6 mg PO Q12 [facility] Last Admin: 04/05/18 23:10 Dose: 0.6 mg Enoxaparin Sodium (Lovenox) 40 mg SC DAILY [facility] PRN Reason: Protocol Last Admin: 04/05/18 09:44 Dose: 40 mg Famotidine (Pepcid) 40 mg PO HS [facility] Last Admin: 04/05/18 23:10 Dose: 40 mg Loratadine (Claritin) 10 mg PO DAILY [facility] Last Admin: 04/05/18 09:43 Dose: 10 mg Losartan Potassium (Cozaar) 50 mg PO DAILY [facility] Last Admin: 04/05/18 09:43 Dose: 50 mg Methylprednisolone (Solu-Medrol) 20 mg IVP Q12 [facility] Last Admin: 04/05/18 23:10 Dose: 20 mg Montelukast Sodium (Singulair) 10 mg PO DAILY [facility] Last Admin: 04/05/18 09:42 Dose: 10 mg Quetiapine Fumarate (Seroquel) 12.5 mg PO HS PRN; Protocol PRN Reason: Psychosis - Labs Labs: 04/04/18 06:30 04/04/18 06:30 PT 14.5 SECONDS (9.4-12.5) H 03/28/18 02:00 INR 1.27 (0.93-1.08) H 03/28/18 02:00 APTT 33.7 Seconds (25.1-36.5) 03/28/18 02:00 - Constitutional Appears: Well, Non-toxic, No Acute Distress - Head Exam Head Exam: NORMAL INSPECTION - Eye Exam Eye Exam: Normal appearance - ENT Exam ENT Exam: Mucous Membranes Moist - Neck Exam Neck Exam: Normal Inspection - Respiratory Exam Respiratory Exam: NORMAL BREATHING PATTERN. absent: Wheezes, Respiratory Distress - Cardiovascular Exam Cardiovascular Exam: RRR - GI/Abdominal Exam GI & Abdominal Exam: Soft, Normal Bowel Sounds. absent: Distended, Tenderness - Extremities Exam Extremities Exam: Full ROM Additional comments: left big toe w/ white discoloration - Back Exam Back Exam: NORMAL INSPECTION - Neurological Exam Neurological Exam: Alert, Awake - Psychiatric Exam Psychiatric exam: Normal Mood - Skin Skin Exam: Normal Color Assessment and Plan - Assessment and Plan (Free Text) Assessment: 72yo M with PMH HTN, COPD, gout arthritis presenting for sepsis 2/2 pneumonia, found to have acute gouty flare. Surgery consulted for gout vs septic arthritis Plan joint pain likely 2/2 acute gout - joint aspiration + birefringent needle-shaped crystals consistent w/ uric acid - synovium culture negative for bacterial growth - afebrile, with no leukocytosis currently - pain improving on colchicine, allopurinol and steroids - ESR was elevated - MRI UE joint done pending official read - plan for depomedrol injections bedside post-MRI Case was reviewed and discussed with Dr. Long
[2018-04-06] MEDS: Albuterol-Ipratrop 3 mg / 0.5 (3 ml) UD IH PRN ×2 (08:04→14:17)
[2018-04-06] MEDS: Budesonide 0.5 mg/2 ml Inhal Susp UD IH SCH ×2 (08:04→20:43)
[2018-04-06] MEDS: Arformoterol 15 mcg/2 ml Inh Sol IH SCH ×2 (08:04→20:43)
--- NOTE | 2018-04-06 08:28 | PN ---
DATE: 04/05/2018 SUBJECTIVE: Patient is a 72-year-old male. Patient was seen and examined at the bedside, looking comfortable, went for MRI of the upper extremity, still has pain and swelling, but little bit better. No fever. No chills. No nausea, vomiting, or diarrhea. No hematuria or hematochezia. No headache, no dizziness. PHYSICAL EXAMINATION: VITAL SIGNS: Temperature 97.8, pulse 82, respiratory rate 18, blood pressure 150/95, pulse oximetry 94. HEENT: Head: Normocephalic and atraumatic. Eyes: PERRLA. Extraocular muscles intact. Conjunctivae are clear. Nose: Patent. Mucous membranes moist. NECK: Supple. No carotid bruit. No JVD or thyromegaly. CHEST: Bilaterally symmetrical. HEART: S1 and S2 positive. LUNGS: Clear to auscultation. ABDOMEN: Soft. Bowel sounds present. No organomegaly. EXTREMITIES: Both hands have swollen red joints. NEUROLOGICAL: Patient is awake, alert. Follows simple commands. MEDICATIONS: DuoNeb, allopurinol, Pulmicort, colchicine, Lovenox, Singulair. LABORATORY DATA: White blood cell is 9.5, hemoglobin 12.7, hematocrit 38.2, platelets 178. Sodium 144, potassium 3.8, BUN 23, creatinine 0.8, and glucose 120. ASSESSMENT AND PLAN: Mr. 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 Patient went for MRI of the hand, results are pending. Status post 6 days of Zyvox, Azactam, and doxycycline. Continue monitoring clinically, off the antibiotics , healthcare-associated pneumonia infection. Continue colchicine, uric acid for gouty arthritis. Follow up MRI results. Gastrointestinal and deep venous thrombosis prophylaxis. Repeat labs. Out of bed, physical therapy. We will follow up. Mary Roper MD MTDKelli
[2018-04-06] MEDS: Calcium-Vit D 250 mg-125 Units Tab UD PO SCH (09:31)
[2018-04-06] MEDS: Enoxaparin 40 mg Syringe SC SCH (09:32)
[2018-04-06] MEDS: MethylPREDNISolone 40 mg Vial IVP SCH ×2 (09:32→21:16)
--- NOTE | 2018-04-06 12:19 | CP.PCM.PN ---
Subjective - Date & Time of Evaluation Date of Evaluation: 04/06/18 Time of Evaluation: 09:50 - Subjective Subjective: No fevers, not in distress, still with hand swelling. Objective - Vital Signs/Intake and Output Vital Signs (last 24 hours): Temp Pulse Resp BP Pulse Ox 98.7 F 77 20 154/90 H 98 04/06/18 06:00 04/06/18 06:00 04/06/18 06:00 04/06/18 06:00 04/06/18 06:00 Intake and Output: 04/05/18 04/06/18 18:59 06:59 Intake Total 120 Output Total 1400 Balance -1280 - Medications Medications: Current Medications Acetaminophen (Tylenol 325mg Tab) 650 mg PO Q4H PRN PRN Reason: Pain, Mild (1-3) Albuterol/Ipratropium (Duoneb 3 Mg/0.5 Mg (3 Ml) Ud) 3 ml IH [id number] PRN PRN Reason: Wheezing Last Admin: 03/28/18 23:55 Dose: 3 ml Allopurinol (Zyloprim) 300 mg PO DAILY [facility] Last Admin: 04/05/18 09:57 Dose: 300 mg Alprazolam (Xanax) 0.125 mg PO TID PRN; Protocol PRN Reason: Anxiety Stop: 04/09/18 18:01 Arformoterol Tartrate (Brovana) 15 mcg IH [id number] [facility] Last Admin: 04/05/18 20:40 Dose: 15 mcg Budesonide (Pulmicort Respules) 1 mg IH [id number] [facility] Last Admin: 04/05/18 20:40 Dose: 1 mg Calcium/Vitamin D (Oscal-D 250 Mg-125 Units Tab) 1 tab PO DAILY [facility] Last Admin: 04/05/18 09:43 Dose: 1 tab Colchicine (Colocrys) 0.6 mg PO Q12 [facility] Last Admin: 04/05/18 23:10 Dose: 0.6 mg Enoxaparin Sodium (Lovenox) 40 mg SC DAILY [facility] PRN Reason: Protocol Last Admin: 04/05/18 09:44 Dose: 40 mg Famotidine (Pepcid) 40 mg PO HS [facility] Last Admin: 04/05/18 23:10 Dose: 40 mg Loratadine (Claritin) 10 mg PO DAILY [facility] Last Admin: 04/05/18 09:43 Dose: 10 mg Losartan Potassium (Cozaar) 50 mg PO DAILY [facility] Last Admin: 04/05/18 09:43 Dose: 50 mg Methylprednisolone (Solu-Medrol) 20 mg IVP Q12 [facility] Last Admin: 04/05/18 23:10 Dose: 20 mg Montelukast Sodium (Singulair) 10 mg PO DAILY [facility] Last Admin: 04/05/18 09:42 Dose: 10 mg Quetiapine Fumarate (Seroquel) 12.5 mg PO HS PRN; Protocol PRN Reason: Psychosis - Labs Labs: 04/04/18 06:30 04/04/18 06:30 PT 14.5 SECONDS (9.4-12.5) H 03/28/18 02:00 INR 1.27 (0.93-1.08) H 03/28/18 02:00 APTT 33.7 Seconds (25.1-36.5) 03/28/18 02:00 - Constitutional Appears: Chronically Ill - Head Exam Head Exam: NORMAL INSPECTION - Respiratory Exam Respiratory Exam: Decreased Breath Sounds - Cardiovascular Exam Cardiovascular Exam: +S1, +S2 - GI/Abdominal Exam GI & Abdominal Exam: Soft. absent: Tenderness Assessment and Plan - Assessment and Plan (Free Text) Plan: Assessment S/P severe sepsis due to bilateral lower lobe HCAP, clinically improved and S/P treatment with antibiotics maculopapular rash probably from Zosyn, clinically improved gout HTN COPD GERD Plan S/P 6 days of Zyvox, Azactam and Doxycycline - continue to monitor clinically off antibiotics since he is at risk for nosocomial infections plan for gout as per PCP, surgery will continue to monitor clinically
--- NOTE | 2018-04-06 20:43 | PN ---
DATE: 04/06/2018 PULMONARY PROGRESS NOTE REFERRING PHYSICIAN: Mary Roper MD SUBJECTIVE: The patient is sitting up in the chair. Feels much better. No headache. No rhinitis. No nausea. No vomiting. No diarrhea. No leg pain or leg swelling. Both hand finger swelling, erythema, tenderness has improved. Has atypical tophi of gout in the finger. PHYSICAL EXAMINATION GENERAL: In no acute distress. VITAL SIGNS: Temperature is 98, heart rate is 92, respiratory rate is 18, blood pressure 156/86, pulse ox 95% on room air. HEENT: Moist mucous membranes. Crowded airway. Mallampati score is 4. NECK: Supple. No JVD. LUNGS: Have fair airflow with rhonchi. HEART: S1 and S2. ABDOMEN: Soft and nontender. No organomegaly. EXTREMITIES: There is no edema. Both hand swelling and erythema is improved. MEDICATIONS: He is on Brovana inhaled twice a day, Claritin 10 mg daily, colchicine 0.6 mg twice a day, Cozaar 50 mg daily, albuterol/Atrovent nebulizer every 6 hours p.r.n., calcium plus vitamin D daily, Pepcid 40 mg daily, Pulmicort inhaled twice a day, Seroquel 12.5 mg at bedtime p.r.n., Singulair 10 mg daily, Solu-Medrol 20 mg every 12 hours, Tylenol p.r.n. basis, Xanax 0.125 mg three times a day p.r.n., allopurinol 300 mg daily. LABORATORY DATA: Reviewed. No new lab is available. MRI of both hands report is still pending. IMPRESSION AND PLAN: Chronic obstructive lung disease, basilar infiltrate, gastroesophageal reflux disease, gouty arthritis involving multiple joint where there is gouty tophi formation. Also, the right knee injected. Clinically, much better. Continue bronchodilator. Gastric and deep vein thrombosis prophylaxis. Continue steroid, allopurinol, and colchicine. May benefit to go to rehab. Thank you and we will follow with you. Morgan Coughlin MD [facility] # [phone]
[2018-04-07] MEDS: Budesonide 0.5 mg/2 ml Inhal Susp UD IH SCH ×2 (07:41→19:53)
[2018-04-07] MEDS: Arformoterol 15 mcg/2 ml Inh Sol IH SCH ×2 (07:41→19:53)
[2018-04-07 07:44] LABS: HEMOGLOBIN 12.8 g/dL (14.0-18.0); MEAN CELL VOLUME 91.6 fl (80.0-105.0); MEAN CORPUSCULAR HEMOGLOBIN 29.9 pg (25.0-35.0); MEAN CORPUSCULAR HGB CONC 32.7 g/dl (31.0-37.0); MEAN PLATELET VOLUME 9.9 fl (7.0-11.0); RBC 4.28 10^6/uL (3.5-6.1); RED CELL DISTRIBUTION WIDTH 12.8 % (11.5-14.5); WHITE BLOOD COUNT 19.4 10^3/ul (4.5-11.0)
[2018-04-07 07:58] LABS: ALB/GLOB RATIO 1.2 (1.1-1.8); ALT/SGPT 97 U/L (7-56); AST/SGOT 45 U/L (17-59); BLOOD UREA NITROGEN 27 mg/dL (7-21); CALCIUM 8.3 mg/dL (8.4-10.5); GFR AFRICAN-AMERICAN > 60; GFR NON-AFRICAN AMERICAN > 60
[2018-04-07 08:45] VITALS: RESP 20
--- NOTE | 2018-04-07 09:37 | PN ---
DATE: 04/06/2018 SUBJECTIVE: Patient is a 72-year-old male. Patient was seen and examined on 04/06/2018 at the bedside, looking comfortable. No nausea, vomiting, or diarrhea. No hematuria. No hematochezia. No headache. No dizziness. No fever, no chills. but still having the swelling of the feet and hands, but a lot better. PHYSICAL EXAMINATION: VITAL SIGNS: Temperature 98.7, pulse 77, respiratory rate 20, blood pressure 164/90, pulse oxymetry is 98. HEENT: Head: Normocephalic, atraumatic. Eyes: PERRLA. Extraocular muscles intact. Conjunctivae clear. Nose patent. Mucous membranes moist. NECK: Supple. No carotid bruit. No JVD or thyromegaly. CHEST: Bilaterally symmetrical. HEART: S1 and S2 positive. LUNGS: Clear to auscultation. ABDOMEN: Soft. Bowel sounds positive. No organomegaly. EXTREMITIES: Negative edema in the lower extremities. Hands and joints are still swollen, but getting better. NEUROLOGIC: Patient is awake and alert. Moving all 4 extremities. No focal deficits. Obeying simple orders. MEDICATIONS: DuoNeb, allopurinol, Xanax, Brovana, Pulmicort, colchicine, Lovenox, Cozaar, Solu-Medrol. LABORATORY DATA: White blood cells 9.5, hemoglobin 12.7, hematocrit 38.2, platelets 170. Sodium 142, potassium 3.6, BUN noted, creatinine 0.8, glucose 120. ASSESSMENT AND PLAN: Mr. Jeffry Denson is a 72-year-old male with anemia, hyperglycemia, has severe sepsis due to bilateral lower lobe healthcare-associated pneumonia, clinically improved with treatment with antibiotics; maculopapular rash, probably with Zosyn, clinically improved; gouty arthritis, the patient is getting steroids, colchicine, and uric acid, improving but very slowly; chronic obstructive pulmonary disease, Dr. Coughlin is on the case; gastroesophageal reflux disease; dyspepsia; bilateral knee pain, and Dr. Jenkins saw the patient and gave injection. Patient has done with Zosyn, Azactam, and doxycycline; off the antibiotics. We will discontinue telemetry and we will try to give physical therapy. Orthopedics saw the patient. Gout aspiration shows positive birefringent needle-shaped crystals consistent with uric acid. Synovial cultures negative for bacterial growth. leukocytosis currently. Pain management with colchicine, allopurinol, and steroids. ESR is elevated. Patient is looking comfortable. We will try to give physical therapy. Repeat labs. We will follow up. Mary Roper MD MTDD
[2018-04-07] MEDS: MethylPREDNISolone 40 mg Vial IVP SCH ×2 (09:46→21:37)
[2018-04-07] MEDS: Calcium-Vit D 250 mg-125 Units Tab UD PO SCH (09:48)
--- NOTE | 2018-04-07 10:21 | MRI ---
PROCEDURE: MRI of the left hand without contrast HISTORY: left hand tissue analysis. Sepsis, gout COMPARISON: TECHNIQUE: MRI of the left hand was performed in multiple planes using multiple pulse sequences. FINDINGS: There is no evidence of marrow edema to suggest osteomyelitis. There is a fluid collection along the ventral aspect of the 2nd digit measuring 2.4 cm in diameter and 0.6 cm in thickness. This could represent a synovial or ganglion cyst. An abscess is also possible. This could also be secondary to gout. The report concurs with the preliminary [facility] report IMPRESSION: No evidence of osteomyelitis. Fluid collection in the ventral aspect of the 2nd digit
--- NOTE | 2018-04-07 10:27 | MRI ---
PROCEDURE: MRI of the right hand without contrast HISTORY: multiple digit swelling/erythema COMPARISON: TECHNIQUE: MRI of the right hand was performed in multiple planes using multiple pulse sequences. Comparison was made to the left hand done on the same day. FINDINGS: There is no marrow edema to suggest osteomyelitis. Multiple fluid collections are seen especially in the ventral aspect of the 2nd digit. Periarticular fluid collections are seen adjacent to the 3rd and 4th PIP joints. These could represent synovial or ganglion cyst and may be related to the history of gout or osteoarthritis. The report concurs with the preliminary [facility] report IMPRESSION: No evidence of osteomyelitis. Multiple periarticular fluid collections consistent with synovial cysts, possible gout
--- NOTE | 2018-04-07 11:38 | CP.PCM.PN ---
Subjective - Date & Time of Evaluation Date of Evaluation: 04/07/18 Time of Evaluation: 09:35 - Subjective Subjective: Veto Tabares PGY1 Surgery Progress Note for Dr. Long Patient seen and examined bedside. states his pain is improving, and was educated on getting discharged and on proper follow up. denies chest pain, fevers/chills, nausea/vomiting Objective - Vital Signs/Intake and Output Vital Signs (last 24 hours): Temp Pulse Resp BP Pulse Ox 98.4 F 78 20 138/76 97 04/07/18 06:00 04/07/18 09:48 04/07/18 06:00 04/07/18 09:48 04/07/18 06:00 Intake and Output: 04/07/18 04/07/18 06:59 18:59 Intake Total 0 Balance 0 - Medications Medications: Current Medications Acetaminophen (Tylenol 325mg Tab) 650 mg PO Q4H PRN PRN Reason: Pain, Mild (1-3) Albuterol/Ipratropium (Duoneb 3 Mg/0.5 Mg (3 Ml) Ud) 3 ml IH [id number] PRN PRN Reason: Wheezing Last Admin: 04/06/18 14:17 Dose: 3 ml Allopurinol (Zyloprim) 300 mg PO DAILY [facility] Last Admin: 04/07/18 09:48 Dose: 300 mg Alprazolam (Xanax) 0.125 mg PO TID PRN; Protocol PRN Reason: Anxiety Stop: 04/09/18 18:01 Arformoterol Tartrate (Brovana) 15 mcg IH [id number] [facility] Last Admin: 04/07/18 07:41 Dose: 15 mcg Budesonide (Pulmicort Respules) 1 mg IH [id number] [facility] Last Admin: 04/07/18 07:41 Dose: 1 mg Calcium/Vitamin D (Oscal-D 250 Mg-125 Units Tab) 1 tab PO DAILY [facility] Last Admin: 04/07/18 09:48 Dose: 1 tab Colchicine (Colocrys) 0.6 mg PO Q12 [facility] Last Admin: 04/07/18 09:47 Dose: 0.6 mg Famotidine (Pepcid) 40 mg PO HS [facility] Last Admin: 04/06/18 21:16 Dose: 40 mg Loratadine (Claritin) 10 mg PO DAILY [facility] Last Admin: 04/07/18 09:48 Dose: 10 mg Losartan Potassium (Cozaar) 50 mg PO DAILY [facility] Last Admin: 04/07/18 09:48 Dose: 50 mg Methylprednisolone (Solu-Medrol) 20 mg IVP Q12 [facility] Last Admin: 04/07/18 09:46 Dose: 20 mg Montelukast Sodium (Singulair) 10 mg PO DAILY [facility] Last Admin: 04/07/18 09:48 Dose: 10 mg Quetiapine Fumarate (Seroquel) 12.5 mg PO HS PRN; Protocol PRN Reason: Psychosis - Labs Labs: 04/07/18 07:15 04/07/18 07:15 PT 14.5 SECONDS (9.4-12.5) H 03/28/18 02:00 INR 1.27 (0.93-1.08) H 03/28/18 02:00 APTT 33.7 Seconds (25.1-36.5) 03/28/18 02:00 - Additional Findings Additional findings: - Constitutional Appears: Well, Non-toxic, No Acute Distress - Head Exam Head Exam: NORMAL INSPECTION - Eye Exam Eye Exam: Normal appearance Pupil Exam: NORMAL ACCOMODATION - ENT Exam ENT Exam: Normal Exam - Neck Exam Neck Exam: Normal Inspection - Respiratory Exam Respiratory Exam: NORMAL BREATHING PATTERN - Cardiovascular Exam Cardiovascular Exam: RRR - GI/Abdominal Exam GI & Abdominal Exam: Soft, Normal Bowel Sounds - Extremities Exam Extremities Exam: Full ROM, Tenderness (joints) Additional comments: finger joints inflammed and enlarged; soft left big toe w/ white discoloration Assessment and Plan - Assessment and Plan (Free Text) Assessment: 72yo M with PMH HTN, COPD, gout arthritis presenting for sepsis 2/2 pneumonia, found to have acute gouty flare. Surgery consulted for acute gouty arthritis Plan joint pain likely 2/2 acute gouty attack - joint aspiration + birefringent needle-shaped crystals consistent w/ uric acid - afebrile, with leukocytosis likely reactive - symptoms improving on colchicine, allopurinol and steroids - ESR was elevated - MRI UE joint showed fluid collection in L 2nd digit and multiple periarticular fluid collections - Left 2nd digit PIP was aspirated and culture is ordered, to r/o septic arthritis - upon discharge, patient should continue maintenance meds for gout Case was reviewed and discussed with Dr. Long
--- NOTE | 2018-04-07 20:52 | CP.PCM.PN ---
Subjective - Date & Time of Evaluation Date of Evaluation: 04/07/18 Time of Evaluation: 12:25 - Subjective Subjective: Hand feels a little better, no fevers. Objective - Vital Signs/Intake and Output Vital Signs (last 24 hours): Temp Pulse Resp BP Pulse Ox 98.4 F 78 20 138/76 97 04/07/18 06:00 04/07/18 09:48 04/07/18 06:00 04/07/18 09:48 04/07/18 06:00 Intake and Output: 04/07/18 04/07/18 06:59 18:59 Intake Total 0 Balance 0 - Medications Medications: Current Medications Acetaminophen (Tylenol 325mg Tab) 650 mg PO Q4H PRN PRN Reason: Pain, Mild (1-3) Albuterol/Ipratropium (Duoneb 3 Mg/0.5 Mg (3 Ml) Ud) 3 ml IH [id number] PRN PRN Reason: Wheezing Last Admin: 04/06/18 14:17 Dose: 3 ml Allopurinol (Zyloprim) 300 mg PO DAILY [facility] Last Admin: 04/07/18 09:48 Dose: 300 mg Alprazolam (Xanax) 0.125 mg PO TID PRN; Protocol PRN Reason: Anxiety Stop: 04/09/18 18:01 Arformoterol Tartrate (Brovana) 15 mcg IH [id number] [facility] Last Admin: 04/07/18 07:41 Dose: 15 mcg Budesonide (Pulmicort Respules) 1 mg IH [id number] [facility] Last Admin: 04/07/18 07:41 Dose: 1 mg Calcium/Vitamin D (Oscal-D 250 Mg-125 Units Tab) 1 tab PO DAILY [facility] Last Admin: 04/07/18 09:48 Dose: 1 tab Colchicine (Colocrys) 0.6 mg PO Q12 [facility] Last Admin: 04/07/18 09:47 Dose: 0.6 mg Famotidine (Pepcid) 40 mg PO HS [facility] Last Admin: 04/06/18 21:16 Dose: 40 mg Loratadine (Claritin) 10 mg PO DAILY [facility] Last Admin: 04/07/18 09:48 Dose: 10 mg Losartan Potassium (Cozaar) 50 mg PO DAILY [facility] Last Admin: 04/07/18 09:48 Dose: 50 mg Methylprednisolone (Solu-Medrol) 20 mg IVP Q12 [facility] Last Admin: 04/07/18 09:46 Dose: 20 mg Montelukast Sodium (Singulair) 10 mg PO DAILY [facility] Last Admin: 04/07/18 09:48 Dose: 10 mg Quetiapine Fumarate (Seroquel) 12.5 mg PO HS PRN; Protocol PRN Reason: Psychosis - Labs Labs: 04/07/18 07:15 04/07/18 07:15 PT 14.5 SECONDS (9.4-12.5) H 03/28/18 02:00 INR 1.27 (0.93-1.08) H 03/28/18 02:00 APTT 33.7 Seconds (25.1-36.5) 03/28/18 02:00 - Constitutional Appears: Chronically Ill - Head Exam Head Exam: NORMAL INSPECTION - Respiratory Exam Respiratory Exam: Decreased Breath Sounds - Cardiovascular Exam Cardiovascular Exam: +S1, +S2 - GI/Abdominal Exam GI & Abdominal Exam: Soft. absent: Tenderness Assessment and Plan - Assessment and Plan (Free Text) Plan: Assessment S/P severe sepsis due to bilateral lower lobe HCAP, clinically improved and S/P treatment with antibiotics maculopapular rash probably from Zosyn, clinically improved gout HTN COPD GERD Plan S/P 6 days of Zyvox, Azactam and Doxycycline - continue to monitor clinically off antibiotics since he is at risk for hospital-acquired infections will continue to monitor clinically
--- NOTE | 2018-04-08 03:11 | PN ---
DATE: 04/07/2018 PULMONARY PROGRESS REPORT REFERRING PHYSICIAN: Mary Roper MD SUBJECTIVE: The patient is lying in the bed, head at 45 degree. Night was unremarkable. Feels much better. Has tophi . No cough, no sputum production. No nausea, vomiting, or diarrhea. No leg swelling. OBJECTIVE: GENERAL: In no acute distress. VITAL SIGNS: Temperature is 98, heart rate is 78, respiratory rate is 20, blood pressure is 138/76, pulse ox is 97% on room air. HEENT: Moist mucous membranes. No oral thrush. NECK: Supple. No JVD. LUNGS: Fair airflow with rhonchi. HEART: S1 and S2. ABDOMEN: Soft and nontender. No organomegaly. EXTREMITIES: No edema. Hand swelling is much better. Erythema is better. No more tenderness. MEDICATIONS: He is on Brovana inhaled twice a day, Claritin 10 mg daily, colchicine 0.6 mg twice a day, Cozaar 50 mg daily, DuoNeb every 6 hours p.r.n., Pepcid 40 mg daily, Pulmicort inhaled twice a day, Seroquel 12.5 mg at bedtime p.r.n., Singulair 10 mg daily, Solu-Medrol 20 mg twice a day, Tylenol p.r.n., Xanax 0.125 mg three times a day, and allopurinol 300 mg daily. LABORATORY DATA: Shows hemoglobin 12.8, hematocrit 39.2, WBC 19.4, and platelets 171. Sodium is 144, potassium 3.8, chloride 104, bicarbonate is 32. BUN 27, creatinine 0.9. Glucose 110. Calcium is 8.3. Total bilirubin less than 0.1. AST 45, ALT 97, alkaline phosphatase is 96. Albumin is 3. IMPRESSION AND PLAN: Severe gout affecting both hands with tophi formation in respective joints, gastroesophageal reflux disease, chronic lung disease, may be sleep apnea syndrome. Doing much better. Prednisone can be switched to p.o. Continue colchicine on the present dose and allopurinol. Outpatient followup in 2 weeks. Pulmonary and sleep testing as outpatient. Thank you and we will follow with you. Morgan Coughlin MD [facility] # [id number]
[2018-04-08 08:26] VITALS: TEMP 98
[2018-04-08] MEDS: Arformoterol 15 mcg/2 ml Inh Sol IH SCH (09:19)
[2018-04-08] MEDS: Budesonide 0.5 mg/2 ml Inhal Susp UD IH SCH (09:20)
[2018-04-08] MEDS: Calcium-Vit D 250 mg-125 Units Tab UD PO SCH (10:04)
[2018-04-08] MEDS: MethylPREDNISolone 40 mg Vial IVP SCH (10:05)
[2018-04-08 14:58] VITALS: BP 136/84; PULSE 88; O2SAT 99
--- NOTE | 2018-04-08 17:28 | CP.PCM.PN ---
Subjective - Date & Time of Evaluation Date of Evaluation: 04/08/18 Time of Evaluation: 11:10 - Subjective Subjective: No fevers, not in distress, hand is feeling better. Objective - Vital Signs/Intake and Output Vital Signs (last 24 hours): Temp Pulse Resp BP Pulse Ox 98 F 73 20 163/87 H 97 04/08/18 06:00 04/08/18 10:04 04/08/18 06:00 04/08/18 10:04 04/08/18 06:00 - Medications Medications: Current Medications Acetaminophen (Tylenol 325mg Tab) 650 mg PO Q4H PRN PRN Reason: Pain, Mild (1-3) Albuterol/Ipratropium (Duoneb 3 Mg/0.5 Mg (3 Ml) Ud) 3 ml IH [id number] PRN PRN Reason: Wheezing Last Admin: 04/06/18 14:17 Dose: 3 ml Allopurinol (Zyloprim) 300 mg PO DAILY [facility] Last Admin: 04/08/18 10:04 Dose: 300 mg Alprazolam (Xanax) 0.125 mg PO TID PRN; Protocol PRN Reason: Anxiety Stop: 04/09/18 18:01 Arformoterol Tartrate (Brovana) 15 mcg IH [id number] [facility] Last Admin: 04/08/18 09:19 Dose: 15 mcg Budesonide (Pulmicort Respules) 1 mg IH [id number] [facility] Last Admin: 04/08/18 09:20 Dose: 1 mg Calcium/Vitamin D (Oscal-D 250 Mg-125 Units Tab) 1 tab PO DAILY [facility] Last Admin: 04/08/18 10:04 Dose: 1 tab Colchicine (Colocrys) 0.6 mg PO Q12 [facility] Last Admin: 04/08/18 10:04 Dose: 0.6 mg Famotidine (Pepcid) 40 mg PO HS [facility] Last Admin: 04/07/18 21:37 Dose: 40 mg Loratadine (Claritin) 10 mg PO DAILY [facility] Last Admin: 04/08/18 10:04 Dose: 10 mg Losartan Potassium (Cozaar) 50 mg PO DAILY [facility] Last Admin: 04/08/18 10:04 Dose: 50 mg Methylprednisolone (Solu-Medrol) 20 mg IVP Q12 [facility] Last Admin: 04/08/18 10:05 Dose: 20 mg Montelukast Sodium (Singulair) 10 mg PO DAILY [facility] Last Admin: 04/08/18 10:04 Dose: 10 mg Quetiapine Fumarate (Seroquel) 12.5 mg PO HS PRN; Protocol PRN Reason: Psychosis - Labs Labs: 04/07/18 07:15 04/07/18 07:15 PT 14.5 SECONDS (9.4-12.5) H 03/28/18 02:00 INR 1.27 (0.93-1.08) H 03/28/18 02:00 APTT 33.7 Seconds (25.1-36.5) 03/28/18 02:00 - Constitutional Appears: Chronically Ill - Head Exam Head Exam: NORMAL INSPECTION - ENT Exam ENT Exam: Mucous Membranes Moist - Neck Exam Neck Exam: absent: Meningismus - Respiratory Exam Respiratory Exam: Decreased Breath Sounds - Cardiovascular Exam Cardiovascular Exam: +S1, +S2 - GI/Abdominal Exam GI & Abdominal Exam: Soft. absent: Tenderness Assessment and Plan - Assessment and Plan (Free Text) Plan: Assessment S/P severe sepsis due to bilateral lower lobe HCAP, clinically improved and S/P treatment with antibiotics maculopapular rash probably from Zosyn, clinically improved gout HTN COPD GERD Plan S/P 6 days of Zyvox, Azactam and Doxycycline - continue to monitor clinically off antibiotics since he is at risk for healthcare-associated infections will continue to monitor clinically
--- NOTE | 2018-04-08 23:58 | PN ---
DATE: 04/08/2018 SUBJECTIVE: Patient is a 72-year-old male. Patient is seen and examined on the bedside, looking comfortable. Extremities are getting better. Hands and fingers are improving. No redness. No warmth. No fever. No chills. PHYSICAL EXAMINATION: VITAL SIGNS: Temperature 98, heart rate 73, respiratory rate 20, blood pressure 163/87, pulse oximetry 97. HEENT: Head: Normocephalic, atraumatic. Eyes: PERRLA. Extraocular muscles intact. Conjunctivae clear. Nose patent. Mucous membranes moist. NECK: Supple. No carotid bruit, JVD, or thyromegaly. CHEST: Bilaterally symmetrical. HEART: S1 and S2 positive. LUNGS: Clear to auscultation. ABDOMEN: Soft. Bowel sounds present. No organomegaly. EXTREMITIES: No edema. No cyanosis. NEUROLOGIC: Patient is awake and alert. Moving all 4 extremities. No focal deficit. MEDICATIONS: Tylenol, DuoNeb, allopurinol, Xanax, Brovana, Pulmicort, vitamin D, colchicine, Pepcid, Claritin, Cozaar, Solu-Medrol, Singulair, Seroquel. LABORATORY DATA: White blood cells 19.4, hemoglobin 12.8, hematocrit 39.2, platelet 171. Sodium 144, potassium 3.8, BUN 27, creatinine 0.9, glucose 110. ASSESSMENT AND PLAN: Mr. Jeffry Denson is a 72-year-old male with leukocytosis; anemia; has severe sepsis due to bilateral lower lobe healthcare-associated pneumonia, clinically improved, status post treatment with antibiotics; maculopapular rash, probably from Zosyn, clinically improved; gouty arthritis exacerbation with steroids, colchicine, and allopurinol, improved; hypertension, getting better; chronic obstructive pulmonary disease; dyspepsia, today is the 6th day of Zyvox, Azactam, and doxycycline. Continue monitoring clinically, off the antibiotics . We will discuss with delinquency prevention social worker about discharge planning . Mary Roper MD [facility] # [phone]
--- NOTE | 2018-04-09 01:00 | PN ---
DATE: 04/08/2018 PULMONARY PROGRESS NOTE REFERRING PHYSICIAN: Mary Roper MD SUBJECTIVE He is out of bed to chair, feels much better. No headache. No rhinitis. No nausea. No vomiting. No diarrhea. Both hands swelling is better. Pain is better. No leg pain or leg swelling. OBJECTIVE: GENERAL: In no distress. VITAL SIGNS: Temperature is 98, heart rate 88, respiratory rate is 20, blood pressure 136/84, pulse ox 99% room air. HEENT: Moist mucous membranes. Crowded airway. NECK: Supple. No JVD. LUNGS: Have a fair airflow with no rhonchi. HEART: S1 and S2. ABDOMEN: Soft, nontender. No organomegaly. EXTREMITIES: No edema of the lower extremities; both hands finger joints are improved of swelling, redness and tenderness. NEUROLOGIC: Awake and alert. Follows simple command. MEDICATIONS: Reviewed. No new changes reported since yesterday. LABORATORY DATA: Reviewed, and no new lab is available since yesterday. IMPRESSION AND PLAN: Severe gout affecting multiple joints in the hand with tophi formation, gastroesophageal reflux disease, chronic lung disease, and sleep apnea syndrome, requires high dose of steroids, colchicine, allopurinol to improve the acute attack of gout, presently much better. Steroids could be tapered off in the next 10 days to 2 weeks. Continue colchicine. Continue allopurinol. The patient guided about the diet. Outpatient sleep study, pulmonary function tests. Follow up kidney function as outpatient. Morgan Coughlin MD
--- NOTE | 2018-04-09 03:08 | PN ---
DATE: 04/07/2018 SUBJECTIVE: The patient 72-year-old male. The patient seen and examined at the bedside on 04/07/2018, looking better, knee is better, hands are better, still red and warm, but pain is less. No fever. No chills. No nausea, vomiting or diarrhea. No hematuria or hematochezia. No headache. No dizziness. PHYSICAL EXAMINATION: VITAL SIGNS: Temperature 98.4, pulse 78, respiratory rate 20, blood pressure 138/76, pulse oximetry 97. HEENT: Head: Normocephalic, atraumatic. Eyes: PERRLA. Extraocular muscles intact. Conjunctivae clear. Nose: Patent. Mucous membrane moist. NECK: Supple. No carotid bruit. No JVD or thyromegaly. CHEST: Bilaterally symmetrical. HEART: S1 and S2 positive. LUNGS: Clear to auscultation. ABDOMEN: Soft. Bowel sounds positive. No organomegaly. EXTREMITIES: Hands and feet have less edema. No cyanosis. NEUROLOGIC: The patient is awake and alert. Moving all 4 extremities. No focal deficit. MEDICATIONS: Tylenol, DuoNeb, albuterol, Xanax, Brovana, Pulmicort, colchicine, famotidine, loratadine, Solu-Medrol, Singulair, Seroquel. LABORATORY DATA: White blood cells 19.4, hemoglobin 12.8, hematocrit 39.2, platelet 171. Sodium 145, potassium 3.8, BUN 27, creatinine 0.9, glucose 110. ASSESSMENT AND PLAN: Mr. Jeffry Denson is a 72-year-old male with leukocytosis, anemia, has severe sepsis due to bilateral lower lobe healthcare-associated pneumonia, clinically improved, status post treatment with antibiotics; maculopapular rash, probably from Zosyn, clinically improved, history of gouty arthritis, getting treatment with allopurinol, colchicine, status post treatment with steroid hypertension improved; chronic obstructive pulmonary disease, Dr. Coughlin is on the case; history of dyspepsia, improving; status post 6 days of Zyvox, Azactam, and doxycycline. The patient is getting continuous monitoring of the antibiotics. Infectious Diseases is still monitoring the patient clinically. The patient has a history of gouty arthritis, gastroesophageal reflux disease. can be switched to p.o. as per industrial design engineer. Outpatient follow up. Gastrointestinal and deep venous thrombosis prophylaxes. Repeat labs. We will follow up. Mary Roper MD
== END 2018-04-08 19:21 | disposition home health service (06) | DRG 871 ==
LOC: ED 01:18 → ERH 06:33 → 2RSO 23:30 → 5RSO 04-06 22:28
PROVIDERS: ADMIT Internal Medicine; ATTEND Internal Medicine
PROC: 0S9D3ZZ Drainage of Left Knee Joint, Percutaneous Approach (ICD-10-PCS; principal; 2018-04-01)
PROC: 3E0U33Z Introduction of Anti-inflammatory into Joints, Percutaneous Approach (ICD-10-PCS; 2018-04-01)
PROC: 3E0U3BZ Introduction of Anesthetic Agent into Joints, Percutaneous Approach (ICD-10-PCS; 2018-04-01)
DX: A41.9 Sepsis, unspecified organism (principal); G92 Toxic encephalopathy; J18.9 Pneumonia, unspecified organism; J44.0 Chronic obstructive pulmonary disease with (acute) lower respiratory infection; L02.519 Cutaneous abscess of unspecified hand; D50.9 Iron deficiency anemia, unspecified; E05.90 Thyrotoxicosis, unspecified without thyrotoxic crisis or storm; E11.65 Type 2 diabetes mellitus with hyperglycemia; E83.51 Hypocalcemia; E87.8 Other disorders of electrolyte and fluid balance, not elsewhere classified; F02.80 Dementia in other diseases classified elsewhere, unspecified severity, without behavioral disturbance, psychotic disturbance, mood disturbance, and anxiety; G31.83 Neurocognitive disorder with Lewy bodies; G47.30 Sleep apnea, unspecified; I15.8 Other secondary hypertension; K21.9 Gastro-esophageal reflux disease without esophagitis; M17.0 Bilateral primary osteoarthritis of knee; M1A.9XX1 Chronic gout, unspecified, with tophus (tophi); N28.9 Disorder of kidney and ureter, unspecified; N40.0 Benign prostatic hyperplasia without lower urinary tract symptoms; R65.20 Severe sepsis without septic shock; W07.XXXA Fall from chair, initial encounter; Y95 Nosocomial condition; Z88.1 Allergy status to other antibiotic agents; Z88.0 Allergy status to penicillin; Z87.891 Personal history of nicotine dependence; Z91.14 Patient's other noncompliance with medication regimen; R40.2412 Glasgow coma scale score 13-15, at arrival to emergency department; I95.2 Hypotension due to drugs; T36.0X5A Adverse effect of penicillins, initial encounter; Z98.49 Cataract extraction status, unspecified eye

== ENCOUNTER 2018-05-08 11:26 | Inpatient (IN) | payer MEDICARE, OTHER ==
[2018-05-08 11:27] VITALS: BMI 23.0
[2018-05-08] MEDS ORDERED: Vancomycin 1gm in NS 250ml 1 GM/250 ML BAG IVPB STA (11:44)
[2018-05-08] MEDS ORDERED: Aztreonam 1 Gm in NS 100mL 100 ML IVPB STA (11:45)
[2018-05-08 12:44] LABS: VENOUS BLOOD GAS PO2 30 mm/Hg (30-55)
[2018-05-08 12:45] LABS: BASO # 0.02 K/mm3 (0.0-2.0); BASO % 0.1 % (0.0-3.0); GRAN # 21.42 (1.4-6.5); GRAN % 91.3 % (50.0-68.0); HEMOGLOBIN 13.7 g/dL (14.0-18.0); MEAN CELL VOLUME 92.9 fl (80.0-105.0); MEAN CORPUSCULAR HEMOGLOBIN 31.4 pg (25.0-35.0); MEAN CORPUSCULAR HGB CONC 33.8 g/dl (31.0-37.0); MEAN PLATELET VOLUME 9.4 fl (7.0-11.0); MONO # 1.1 (0.1-0.6); MONO % 4.6 % (1.0-6.0); PLATELET COUNT 200 10^3/uL (120.0-450.0); RBC 4.36 10^6/uL (3.5-6.1); RED CELL DISTRIBUTION WIDTH 13.9 % (11.5-14.5); WHITE BLOOD COUNT 23.5 10^3/ul (4.5-11.0)
[2018-05-08 12:53] LABS: ALB/GLOB RATIO 1.2 (1.1-1.8); ALBUMIN 4.1 g/dL (3.0-4.8); ALT/SGPT 71 U/L (7-56); AST/SGOT 107 U/L (17-59); BLOOD UREA NITROGEN 19 mg/dL (7-21); CALCIUM 9.5 mg/dL (8.4-10.5); GFR AFRICAN-AMERICAN > 60; GFR NON-AFRICAN AMERICAN 60
[2018-05-08 12:54] LABS: INR 1.09 (0.93-1.08); PARTIAL THROMBOPLASTIN TIME 30.2 Seconds (25.1-36.5); PROTHROMBIN TIME 12.5 SECONDS (9.4-12.5)
--- NOTE | 2018-05-08 13:07 | RAD ---
Date of service: 05/08/2018 HISTORY: Sepsis Patient COMPARISON: 03/28/2018 FINDINGS: LUNGS: No active pulmonary disease. PLEURA: No significant pleural effusion identified, no pneumothorax apparent. CARDIOVASCULAR: Normal. OSSEOUS STRUCTURES: No significant abnormalities. VISUALIZED UPPER ABDOMEN: Normal. OTHER FINDINGS: None. IMPRESSION: No active disease.
--- NOTE | 2018-05-08 13:20 | ED PDOC ---
Arrival/HPI - General Chief Complaint: Finger,Hand,&Wrist Time Seen by Provider: 05/08/18 11:37 Historian: Patient - History of Present Illness Narrative History of Present Illness (Text): 05/08/18 13:22 Patient is a 73 yo male, past medical history of gout, past medical history of sepsis, presents to the Emergency Department complaining of pain to his lower extremities, both knees, and also diffuse rash that started this morning. He denies cough, he denies headache or chest pain or shortness of breath, he denies abdominal pain, he denies nausea or vomiting. Denies bloody urine or stool. Denies trauma. Denies hip pain. Denies neck or back pain. Denies pleuritic discomfort. He denies pleuritic chest pain. Reports chills. Denies urinary symptoms. Time/Duration: Prior to Arrival Symptom Onset: Gradual Past Medical History - Infectious Disease Hx of Infectious Diseases: None - Cardiac Hx Hypertension: Yes - Pulmonary Hx Chronic Obstructive Pulmonary Disease (COPD): Yes - Neurological Hx Neurological Disorder: No - HEENT Hx HEENT Disorder: No - Endocrine/Metabolic Hx Endocrine Disorders: No - Hematological/Oncological Hx Blood Disorders: No - Integumentary Hx Dermatological Disorder: No - Musculoskeletal/Rheumatological Hx Arthritis: Yes - Gastrointestinal Hx Gastrointestinal Disorders: No - Genitourinary/Gynecological Hx Genitourinary Disorders: No - Psychiatric Hx Psychophysiologic Disorder: No Hx Substance Use: No - Anesthesia Hx Anesthesia: No Family/Social History Family/Social History: Unknown Family HX Smoking Status: Former Smoker Hx Alcohol Use: No Hx Substance Use: No Allergies/Home Meds Allergies/Adverse Reactions: Allergies levofloxacin [From Levaquin] Allergy (Verified 03/28/18 01:35) RASH Penicillins Allergy (Verified 03/28/18 06:48) RASH vancomycin Allergy (Verified 05/08/18 18:47) SHORTNESS OF BREATH Home Medications: Home Meds Medication Instructions Recorded Confirmed Albuterol/Ipratropium [Duoneb 3 3 ml IH PRN PRN 03/07/18 03/28/18 MG/3 Ml-0.5 MG/3 Ml 3 Ml] Colchicine [Colcrys] 0.6 mg PO PRN 03/07/18 03/28/18 Fluticasone/Salmeterol 500/50 1 puff IN BID 03/07/18 03/28/18 [Advair Diskus 500/50] Losartan [Cozaar] 50 mg PO DAILY 03/07/18 03/28/18 predniSONE [Prednisone] 10 mg PO DAILY 03/07/18 03/28/18 Review of Systems - Review of Systems Constitutional: Fatigue, Fevers Eyes: absent: Vision Changes ENT: absent: Hearing Changes Respiratory: SOB. absent: Cough, Wheezing Cardiovascular: Palpitations, Edema. absent: Chest Pain, Syncope Gastrointestinal: absent: Abdominal Pain Genitourinary Male: absent: Dysuria Musculoskeletal: Arthralgias, Myalgias Skin: Rash, Pruritis. absent: Abscess, Ulcer Neurological: absent: Headache, Dizziness, Focal Weakness Endocrine: absent: Polyuria Physical Exam Vital Signs Reviewed: Yes Vital Signs Temp Pulse Resp BP Pulse Ox 05/08/18 17:01 99.2 F 125 H 133/75 96 05/08/18 16:02 126 H 120/68 96 05/08/18 15:29 103 H 18 134/73 95 05/08/18 14:47 132 H 20 117/64 96 05/08/18 14:02 138 H 133/71 96 05/08/18 13:47 142 H 147/70 96 05/08/18 13:32 142 H 156/81 H 99 05/08/18 13:23 102.4 F H 05/08/18 13:17 140 H 156/82 H 98 05/08/18 13:02 141 H 154/81 H 98 05/08/18 12:48 142 H 157/78 H 99 05/08/18 12:20 144 H 147/83 98 05/08/18 12:05 144 H 140/80 98 05/08/18 11:42 136 H 95 05/08/18 11:39 99.7 F H 138 H 20 136/92 H 100 05/08/18 11:35 140 H 136/92 H 100 Temperature: Febrile Pulse: Tachycardic Respiratory Rate: Tachypneic Appearance: Positive for: Ill-Appearing, Uncomfortable Pain Distress: Moderate Mental Status: Positive for: Alert and Oriented X 3 - Systems Exam Head: Present: Atraumatic Pupils: Present: PERRL Mouth: Present: Moist Mucous Membranes Pharnyx: No: ERYTHEMA Nose (Internal): Present: Normal Inspection Neck: Present: Normal Range of Motion. No: Meningeal Signs Respiratory/Chest: Present: Clear to Auscultation. No: Respiratory Distress Cardiovascular: Present: Murmurs, Tachycardic Abdomen: No: Tenderness Rectal: No: Gross Blood Back: No: CVA Tenderness Upper Extremity: No: Cyanosis, Edema Lower Extremity: Present: Edema, Tenderness, Swelling, Erythema, Neurovascularly Intact. No: CALF TENDERNESS Neurological: Present: Motor Func Grossly Intact, Normal Sensory Function Skin: Present: Other (maculopapular rash to trunk) Psychiatric: Present: Alert, Normal Insight, Normal Concentration Medical Decision Making ED Course and Treatment: 05/08/18 13:24 Patient on initial evaluation noted to have pain to his lower extremities. I am able to range his hips and knees, but there is bilateral knee discomfort with range of motion. No calf pain noted. NV intact. He is febrile, tachycardic. IV fluids initiated. IV antibiotics initiated for suspicion of sepsis. Tachycardia is noted I initially feel related to pain and fever. Rash is not petechial. Have consulted Infectious Disease, discussed with Dr. Galarza for evaluation of fever, rash, tachycardia. Currently WBC elevated, although blood pressure stable and initial lactate unremarkable. 05/08/18 13:32 Chest X-Ray reviewed by radiologist, shows no active disease. 05/08/18 17:58 Patient on re-evaluation with improvement in pain, improvement in heart rate. I reviewed patient's last admission to the hospital and patient describes current symptoms as similar. For joint and leg pain, Dr. Jenkins consulted and presented to the ED. At this time exam not consistent with septic joint. Will monitor for any change in exam or cellulitis, suspect ? gout. Joint tap performed by Dr. Jenkins. Fever improved. EKG reveals sinus tachycardia. Currently no respiratory distress. Patient admitted to telemetry bed, discussed with Dr. Roper, accepts patient to her service. He states he is allergic to vancomycin he believes. Vancomycin not given. Patient tolerated Azactam. - Lab Interpretations Microbiology Results: Microbiology Results 05/08/18 12:30 Blood Blood Culture - Preliminary NO GROWTH AFTER 24 HOURS 05/08/18 12:00 Blood Blood Culture - Preliminary NO GROWTH AFTER 24 HOURS Lab Results: 05/08/18 12:30 05/08/18 12:30 Lab Results 05/08/18 14:00: ESR 80 H 05/08/18 12:30: Sodium 142, Chloride 103, Potassium 4.4, Carbon Dioxide 28, Anion Gap 16, BUN 19, Creatinine 1.2, Est GFR ( Amer) > 60, Est GFR (Non- Af Amer) 60, Random Glucose 114 H, Calcium 9.5, Phosphorus 3.2, Magnesium 2.2, Total Bilirubin 1.0, AST 107 H D, ALT 71 H, Alkaline Phosphatase 88, Total Protein 7.4, Albumin 4.1, Globulin 3.4, Albumin/Globulin Ratio 1.2 05/08/18 12:30: pO2 30, VBG pH 7.40, VBG pCO2 46.0, VBG HCO3 28.5 H, VBG Total CO2 29.9 H, VBG O2 Sat (Calc) 61.7, VBG Base Excess 3.0 H, VBG Potassium 4.4, Sodium 139.0, Chloride 105.0, Glucose 117 H, Lactate 1.9, FiO2 21.0, Venous Blood Potassium 4.4 05/08/18 12:30: PT 12.5, INR 1.09 H, APTT 30.2 05/08/18 12:30: WBC 23.5 H D, RBC 4.36, Hgb 13.7 L, Hct 40.5 L, MCV 92.9, MCH 31.4, MCHC 33.8, RDW 13.9, Plt Count 200, MPV 9.4, Gran % 91.3 H, Lymph % (Auto ) 4.0 L, Gulf % (Auto) 4.6, Eos % (Auto) 0.0 L, Baso % (Auto) 0.1, Gran # 21.42 H, Lymph # (Auto) 1.0 L, [place] # (Auto) 1.1 H, Eos # (Auto) 0.0, Baso # (Auto) 0.02, Neutrophils % (Manual) 91 H, Lymphocytes % (Manual) 3 L, Monocytes % ( Manual) 6 - RAD Interpretation Radiology Orders: 05/08/18 11:42 CHEST PORTABLE [RAD] Stat 05/08/18 14:15 DUPLEX LOWER EXTRM VEIN BILAT [US] Stat - Medication Orders Current Medication Orders: Acetaminophen (Tylenol 325mg Tab) 650 mg PO Q4H PRN PRN Reason: Pain, moderate (4-7) Last Admin: 05/09/18 17:47 Dose: 650 mg MAR Pain/Vitals Document 05/09/18 17:47 (Rec: 05/09/18 17:48 [id number] Presence of Pain Presence of Pain Yes Pain Scale Used Pain Scale Used Numeric Location Left, Right or Bilateral Bilateral Pain Location Body Site Big Toe Description Constant Intensity 7 Scale Used Numeric Pain Behavior Restlessness Facial Grimacing Alleviating Factors Medication Re-Assess: MAR Pain/Vitals Document 05/09/18 18:47 (Rec: 05/09/18 18:53 [id number] Pain Reassessment Is This A Pain ReAssessment? Yes Presence of Pain Presence of Pain No Albuterol/Ipratropium (Duoneb 3 Mg/0.5 Mg (3 Ml) Ud) 3 ml IH Q6 PRN PRN Reason: Wheezing Allopurinol (Zyloprim) 100 mg PO TID [facility] Last Admin: 05/09/18 17:16 Dose: 100 mg Arformoterol Tartrate (Brovana) 15 mcg IH [id number] [facility] Last Admin: 05/10/18 07:35 Dose: 15 mcg Budesonide (Pulmicort Respules) 1 mg IH [id number] [facility] Last Admin: 05/10/18 07:36 Dose: 1 mg Colchicine (Colocrys) 0.6 mg PO DAILY [facility] Last Admin: 05/09/18 15:19 Dose: 0.6 mg Enoxaparin Sodium (Lovenox) 40 mg SC DAILY [facility] PRN Reason: Protocol Last Admin: 05/09/18 10:17 Dose: 40 mg Subcutaneous Administrations Document 05/09/18 10:17 (Rec: 05/09/18 10:18 [id number]) Injection Site MAR Injection Site Right Abdomen Charges for Administration # of Subcutaneous Administrations 1 Aztreonam (Azactam 2 Gm) 100 mls @ 100 mls/hr IVPB Q8 BLANK PRN Reason: Protocol Stop: 05/15/18 22:01 Last Admin: 05/10/18 05:22 Dose: 100 mls/hr eMAR Start Stop Document 05/10/18 05:22 MS (Rec: 05/10/18 05:22 MS [facility] [place]-[id number]) Intravenous Solution Start Date 07/16/18 Start Time 05:22 End Date 05/10/18 End time 06:22 Total Infusion Time 60 Linezolid (Zyvox 600mg/300ml D5w) 600 mg in 300 mls @ 200 mls/hr IVPB Q12 BLANK PRN Reason: Protocol Stop: 05/15/18 20:19 Last Admin: 05/09/18 22:27 Dose: 200 mls/hr eMAR Start Stop Document 05/09/18 22:27 MS (Rec: 05/09/18 22:27 MS [facility] [id number]) Intravenous Solution Start Date 05/09/18 Start Time 22:27 End Date 05/09/18 End time 23:57 Total Infusion Time 90 Losartan Potassium (Cozaar) 50 mg PO DAILY [facility] Last Admin: 05/09/18 10:17 Dose: 50 mg [facility] Pulse and Blood Pressure Document 05/09/18 10:17 MF (Rec: 05/09/18 10:17 MF [id number]) Pulse Pulse Rate (60-90) 109 Blood Pressure Blood Pressure (100/60-150/90) 119/69 Prednisone (Prednisone Tab) 10 mg PO BRK [facility] Last Admin: 05/09/18 08:10 Dose: 10 mg Discontinued Medications Acetaminophen (Tylenol 325mg Tab) 650 mg PO ONCE STA Stop: 05/08/18 12:56 Last Admin: 05/08/18 13:23 Dose: 650 mg MAR Pain/Vitals Document 05/08/18 13:23 HI (Rec: 05/08/18 13:24 HI [facility] [place]-[id number]) Vitals Temperature (97.6 F-99.6 F) 102.4 F Temperature Source Oral Re-Assess: MAR Pain/Vitals Document 05/08/18 14:23 JUVE (Rec: 05/08/18 19:01 JUVE [id number]) Presence of Pain Presence of Pain No Pain Scale Used Pain Scale Used Numeric Albuterol/Ipratropium (Duoneb 3 Mg/0.5 Mg (3 Ml) Ud) 3 ml IH PRN PRN PRN Reason: Wheezing Enoxaparin Sodium (Lovenox) 60 mg SC Q12H BLANK PRN Reason: Protocol Lactated Ringer's 1,770 ml/ IV (SUPPLIES) 1,770 mls @ 3,538.02 mls/hr IV ONCE ONE PRN Reason: 60 ML/KG/HR Stop: 05/08/18 11:43 Last Admin: 05/08/18 12:30 Dose: 3,538.02 mls/hr eMAR Start Stop Document 05/08/18 12:30 HI (Rec: 05/08/18 12:54 [id number] Intravenous Solution Start Date 05/08/18 Start Time 12:30 Aztreonam (Azactam 1 Gm) 100 mls @ 100 mls/hr IVPB STAT STA PRN Reason: Protocol Stop: 05/08/18 12:44 Last Admin: 05/08/18 12:54 Dose: 100 mls/hr eMAR Start Stop Document 05/08/18 12:54 HI (Rec: 05/08/18 12:55 HI [id number] Intravenous Solution Start Date 05/08/18 Start Time 12:30 Fluticasone/Salmeterol (Advair Diskus 500/50) 1 puff INH BID BLANK Disposition/Present on Arrival - Present on Arrival Any Indicators Present on Arrival: No History of DVT/PE: No History of Uncontrolled Diabetes: No Urinary Catheter: No History of Decub. Ulcer: No History Surgical Site Infection Following: None - Disposition Have Diagnosis and Disposition been Completed?: Yes Diagnosis: Sepsis, Tachycardia, Rash, Joint pain, Leukocytosis Disposition: HOSPITALIZED Disposition Time: 13:00 Patient Plan: Admission, Telemetry Patient Problems: Current Active Problems Problem Status Onset Joint pain Acute Leukocytosis Acute Rash Acute Sepsis Acute Tachycardia Acute Condition: SERIOUS
[2018-05-08 13:32] LABS: LYMPHOCYTE 3 % (22.0-35.0); MONOCYTE 6 % (1.0-6.0); NEUTROPHIL 91 % (50.0-70.0)
[2018-05-08] MEDS ORDERED: Vancomycin 1gm in NS 250ml 1 GM/250 ML BAG IVPB SCH (18:30)
[2018-05-08] MEDS ORDERED: Albuterol-Ipratrop 3 mg / 0.5 (3 ml) UD IH PRN (19:34)
--- NOTE | 2018-05-08 20:50 | CARD ---
APPROVED REPORT Date of service: 05/08/2018 EKG Measurement Heart [id number] <Conclusion> Sinus tachycardia Otherwise normal ECG
--- NOTE | 2018-05-08 21:25 | CP.PCM.PN ---
Subjective - Date & Time of Evaluation Date of Evaluation: 05/08/18 Time of Evaluation: 21:23 - Subjective Subjective: Patient was seen at bedside. Denies chest pain, sob, palpitations. Heart rate is in the 130's. It was requested to co sign order for heart healthy diet. Medical record was reviewed. This 73 year old male was admitted with lower extremities pain, knee pain, diffuse , rash, tachycardia, sepsis. Has PMH of HTN, asthma, COPD,gout arthritis, elevated PSA. Objective - Vital Signs/Intake and Output Vital Signs (last 24 hours): Temp Pulse Resp BP Pulse Ox 99.2 F 125 H 20 133/75 96 05/08/18 17:30 05/08/18 17:30 05/08/18 17:30 05/08/18 17:30 05/08/18 17:30 - Medications Medications: Current Medications Albuterol/Ipratropium (Duoneb 3 Mg/0.5 Mg (3 Ml) Ud) 3 ml IH PRN PRN PRN Reason: Wheezing Arformoterol Tartrate (Brovana) 15 mcg IH [id number] BLANK Budesonide (Pulmicort Respules) 1 mg IH [id number] BLANK Colchicine (Colocrys) 0.6 mg PO PRN BLANK Aztreonam (Azactam 2 Gm) 100 mls @ 100 mls/hr IVPB Q8 BLANK PRN Reason: Protocol Stop: 05/15/18 22:01 Linezolid (Zyvox 600mg/300ml D5w) 600 mg in 300 mls @ 200 mls/hr IVPB Q12 BLANK PRN Reason: Protocol Stop: 05/15/18 20:19 Losartan Potassium (Cozaar) 50 mg PO DAILY BLANK Prednisone (Prednisone Tab) 10 mg PO BRK BLANK - Labs Labs: PT 12.5 SECONDS (9.4-12.5) 05/08/18 12:30 INR 1.09 (0.93-1.08) H 05/08/18 12:30 APTT 30.2 Seconds (25.1-36.5) 05/08/18 12:30 Most Recent Lab Values WBC 23.5 10^3/ul (4.5-11.0) H D 05/08/18 12:30 RBC 4.36 10^6/uL (3.5-6.1) 05/08/18 12:30 Hgb 13.7 g/dL (14.0-18.0) L 05/08/18 12:30 Hct 40.5 % (42.0-52.0) L 05/08/18 12:30 MCV 92.9 fl (80.0-105.0) 05/08/18 12:30 MCH 31.4 pg (25.0-35.0) 05/08/18 12:30 MCHC 33.8 g/dl (31.0-37.0) 05/08/18 12:30 RDW 13.9 % (11.5-14.5) 05/08/18 12:30 Plt Count 200 10^3/uL (120.0-450.0) 05/08/18 12:30 MPV 9.4 fl (7.0-11.0) 05/08/18 12:30 Gran % 91.3 % (50.0-68.0) H 05/08/18 12:30 Lymph % (Auto) 4.0 % (22.0-35.0) L 05/08/18 12:30 [place] % (Auto) 4.6 % (1.0-6.0) 05/08/18 12:30 Eos % (Auto) 0.0 % (1.5-5.0) L 05/08/18 12:30 Baso % (Auto) 0.1 % (0.0-3.0) 05/08/18 12:30 Gran # 21.42 (1.4-6.5) H 05/08/18 12:30 Lymph # (Auto) 1.0 (1.2-3.4) L 05/08/18 12:30 [place] # (Auto) 1.1 (0.1-0.6) H 05/08/18 12:30 Eos # (Auto) 0.0 (0.0-0.7) 05/08/18 12:30 Baso # (Auto) 0.02 K/mm3 (0.0-2.0) 05/08/18 12:30 Neutrophils % (Manual) 91 % (50.0-70.0) H 05/08/18 12:30 Lymphocytes % (Manual) 3 % (22.0-35.0) L 05/08/18 12:30 Monocytes % (Manual) 6 % (1.0-6.0) 05/08/18 12:30 ESR 80 mm/hr (0.00-15.0) H 05/08/18 14:00 PT 12.5 SECONDS (9.4-12.5) 05/08/18 12:30 INR 1.09 (0.93-1.08) H 05/08/18 12:30 APTT 30.2 Seconds (25.1-36.5) 05/08/18 12:30 D-Dimer, Quantitative 837 ng/mL (0-243) H 05/08/18 21:54 pO2 30 mm/Hg (30-55) 05/08/18 12:30 VBG pH 7.40 (7.32-7.43) 05/08/18 12:30 VBG pCO2 46.0 (40-60) 05/08/18 12:30 VBG HCO3 28.5 mmol/l (21-28) H 05/08/18 12:30 VBG Total CO2 29.9 mmol.L (22-28) H 05/08/18 12:30 VBG O2 Sat (Calc) 61.7 % (40-65) 05/08/18 12:30 VBG Base Excess 3.0 mmol/L (0.0-2.0) H 05/08/18 12:30 VBG Potassium 4.4 mmol/L (3.6-5.2) 05/08/18 12:30 Sodium 139.0 mmol/L (132-148) 05/08/18 12:30 Chloride 105.0 mmol/L (98-107) 05/08/18 12:30 Glucose 117 mg/dl (75-110) H 05/08/18 12:30 Lactate 1.9 mmol/L (0.7-2.1) 05/08/18 12:30 FiO2 21.0 % 05/08/18 12:30 Sodium 142 mmol/L (132-148) 05/08/18 12:30 Potassium 4.4 mmol/L (3.6-5.0) 05/08/18 12:30 Chloride 103 mmol/L (98-107) 05/08/18 12:30 Carbon Dioxide 28 mmol/L (21-33) 05/08/18 12:30 Anion Gap 16 (10-20) 05/08/18 12:30 BUN 19 mg/dL (7-21) 05/08/18 12:30 Creatinine 1.2 mg/dl (0.8-1.5) 05/08/18 12:30 Est GFR ( Amer) > 60 05/08/18 12:30 Est GFR (Non-Af Amer) 60 05/08/18 12:30 Random Glucose 114 mg/dL (70-110) H 05/08/18 12:30 Calcium 9.5 mg/dL (8.4-10.5) 05/08/18 12:30 Phosphorus 3.2 mg/dL (2.5-4.5) 05/08/18 12:30 Magnesium 2.0 mg/dL (1.7-2.2) 05/08/18 21:54 Total Bilirubin 1.0 mg/dL (0.2-1.3) 05/08/18 12:30 AST 107 U/L (17-59) H D 05/08/18 12:30 ALT 71 U/L (7-56) H 05/08/18 12:30 Alkaline Phosphatase 88 U/L (38-126) 05/08/18 12:30 Troponin I < 0.01 ng/mL D 05/08/18 21:54 Total Protein 7.4 g/dL (5.8-8.3) 05/08/18 12:30 Albumin 4.1 g/dL (3.0-4.8) 05/08/18 12:30 Globulin 3.4 gm/dL 05/08/18 12:30 Albumin/Globulin Ratio 1.2 (1.1-1.8) 05/08/18 12:30 Venous Blood Potassium 4.4 mmol/L (3.6-5.2) 05/08/18 12:30 Urine Color Yellow (YELLOW) 05/09/18 01:35 Urine Appearance Sl cloudy (CLEAR) 05/09/18 01:35 Urine pH 6.0 (4.7-8.0) 05/09/18 01:35 Ur Specific [place] 1.020 (1.005-1.035) 05/09/18 01:35 Urine Protein 30 mg/dL (<30 mg/dL) H 05/09/18 01:35 Urine Glucose (UA) 100 mg/dL (NEGATIVE) H 05/09/18 01:35 Urine Ketones 15 mg/dL (NEGATIVE) H 05/09/18 01:35 Urine Blood Negative (NEGATIVE) 05/09/18 01:35 Urine Nitrate Negative (NEGATIVE) 05/09/18 01:35 Urine Bilirubin Negative (NEGATIVE) 05/09/18 01:35 Urine Urobilinogen 1.0 E.U./dL (<1 E.U./dL) H 05/09/18 01:35 Ur Leukocyte Esterase Negative Silvia/uL (NEGATIVE) 05/09/18 01:35 Urine RBC 0 - 2 /hpf (0-2) 05/09/18 01:35 Urine WBC 0 - 2 /hpf (0-6) 05/09/18 01:35 Ur Epithelial Cells 0 - 2 /hpf (0-5) 05/09/18 01:35 Urine Bacteria Occ (NEG) 05/09/18 01:35 - Constitutional Appears: Well, No Acute Distress - Head Exam Head Exam: ATRAUMATIC, NORMAL INSPECTION, NORMOCEPHALIC - Eye Exam Eye Exam: Normal appearance - ENT Exam ENT Exam: Normal External Ear Exam - Neck Exam Neck Exam: Normal Inspection - Respiratory Exam Respiratory Exam: NORMAL BREATHING PATTERN - Cardiovascular Exam Cardiovascular Exam: Tachycardia - GI/Abdominal Exam GI & Abdominal Exam: absent: Distended - Rectal Exam Rectal Exam: Deferred - Exam Additional comments: Deferred. - Extremities Exam Extremities Exam: Normal Inspection - Back Exam Back Exam: NORMAL INSPECTION - Neurological Exam Neurological Exam: Alert, Awake, Oriented x3 - Psychiatric Exam Psychiatric exam: Normal Affect, Normal Mood - Skin Skin Exam: Normal Color Assessment and Plan - Assessment and Plan (Free Text) Assessment: Sinus tachycardia. Sepsis. History of elevated PSA. Gout. Leukocytosis. HTN. Asthma. Plan: EKG.------------>Sinus tachycardia , no acute st t changes. Troponin.--->,0.1. D-Dimer.---->837. Magnesium level.2.0 Lovenox-Therapeutic. Doppler of lower extremities was negative. CT angio chest -Negative.-->Lovenox therapeutic was changed to prophylactic dose.
[2018-05-08 22:20] LABS: TROPONIN I < 0.01 ng/mL
[2018-05-08] MEDS: Aztreonam 2 Gm in NS 100mL 100 ML IVPB SCH (22:29)
[2018-05-08] MEDS: Linezolid 600 mg in D5W 300 ml 600 MG/300 ML BAG IVPB SCH (23:31)
[2018-05-09] MEDS ORDERED: Enoxaparin 60 mg Syringe SC SCH (00:15)
[2018-05-09] MEDS: Budesonide 0.5 mg/2 ml Inhal Susp UD IH SCH ×3 (01:09→19:17)
[2018-05-09 01:47] LABS: URINE BILIRUBIN NEGATIVE (NEGATIVE); URINE BLOOD NEGATIVE (NEGATIVE); URINE GLUCOSE (UA) 100 mg/dL (NEGATIVE); URINE LEUKOCYTE ESTERASE NEGATIVE Leu/uL (NEGATIVE); URINE PROTEIN 30 mg/dL (<30 mg/dL)
[2018-05-09 02:00] LABS: URINE APPEARANCE SL CLOUDY (CLEAR); URINE COLOR YELLOW (YELLOW)
[2018-05-09 02:01] LABS: URINE BACTERIA OCC (NEG); URINE EPITHELIAL CELLS 0 - 2 /hpf (0-5); URINE RBC 0 - 2 /hpf (0-2); URINE WBC 0 - 2 /hpf (0-6)
[2018-05-09] MEDS ORDERED: Iohexol 350 MG/100 ML VIAL ONE (02:30)
--- NOTE | 2018-05-09 03:09 | CON ---
DATE: 05/08/2018 ORTHOPEDIC CONSULTATION AND PROCEDURE REPORT HISTORY OF PRESENT ILLNESS: I was asked to see Mr. Jeffry Denson today, 05/08/2018, at 3:00 p.m., for pain in several parts of his body with a past history of gouty arthritis. He has pain in the prepatellar bursa of the right knee, inflammation of both toes, worse on the left than the right great toes, with swelling and tenderness, consistent with gouty arthritis of both toes and the fourth area of concern was the right ankle with the fusion and tenderness. All areas were erythematous. So, what we did is, injected the right prepatellar bursa with Depo-Medrol and Marcaine, the left big toe with Depo-Medrol and Marcaine, and in the right ankle, we aspirated some turbid fluids, sent out to lab for culture and injected the right ankle with Depo-Medrol and Marcaine. Hopefully, the right big toe inflammation will get better with the 2 injections in the right lower extremity. He said the worse toe pain with the left lessened since injected with Depo-Medrol and Marcaine. The last time I saw him, it was the knees a couple of months ago that were hurting and proved to be positive for uric acid crystals. This is the first time he had so many areas affected. The right prepatellar bursa to left great and right big toe and the right ankle. Hopefully, he feels a little better with that injection of Depo-Medrol and Marcaine, and hopefully he could feel better with this, and I will follow up on the culture. There was not enough fluid to send to the lab for crystals, and anyway difficult to do. FINAL DIAGNOSES: Inflammatory arthritis of the prepatellar bursa, right knee; bilateral big toe gouty arthritis, and right ankle gouty arthrosis. We will send the fluid for culture to make sure it is not an infection. Shon Jenkins DO
--- NOTE | 2018-05-09 04:31 | HP ---
The patient is a 73-year-old male. CHIEF COMPLAINT: Finger, hand, wrist, feet pain. HISTORY OF PRESENT ILLNESS: Mr. Jeffry Denson is a 73-year-old male with past medical history of gouty arthritis, history of sepsis, came to the emergency department complaining of pain in his lower extremities, both knees, hands and feet also diffuse rash that started this morning. He denies cough. Denies headache, chest pain. No nausea, vomiting or diarrhea. No hematuria. No hematochezia. Denies trauma. No hip pain. No neck or back pain. Denies pleuritic discomfort. Reports chill. Denies urinary symptoms. PAST MEDICAL HISTORY: COPD, gouty arthritis, history of sepsis. FAMILY HISTORY: Father and mother, noncontributory. HABITS: Former smoker. No alcohol. No substance abuse. ALLERGIES: PATIENT IS ALLERGIC TO LEVOFLOXACIN, PENICILLIN. HOME MEDICATIONS: DuoNeb, colchicine, Advair, Cozaar, prednisone. REVIEW OF SYSTEMS: Patient was seen and examined on the bedside in the emergency room. Looking comfortable. Still complaining of pain in the hands, feet, knees, wrists. No vision changes and no hearing changes. Having sometime shortness of breath but no cough or wheezing. No chest pain. No syncope. No abdominal pain. No dysuria. No hematochezia. No abscess or ulcers. No headache, dizziness, focal weakness, polyuria. PHYSICAL EXAMINATION: VITAL SIGNS: Temperature 99.2, pulse 125, respiratory rate 18, blood pressure 133/75, pulse 96. HEENT: Head: Normocephalic, atraumatic. Eyes: PERRLA. Extraocular muscles intact. Conjunctivae clear. Nose: Patent. NECK: Supple. No carotid bruit. No JVD or thyromegaly. CHEST: Bilaterally symmetrical. HEART: S1 and S2 positive. LUNGS: Clear to auscultation. ABDOMEN: Soft. Bowel sounds positive. No organomegaly. EXTREMITIES: No cyanosis or edema but there is tenderness, swelling on joints. Erythema of the hands, feet, knees and ankles. NEUROLOGIC: Patient is awake and alert. Follow simple commands. Moving all 4 extremities. LABORATORY DATA: White blood cells noted , hemoglobin 13.7, hematocrit 40.5, platelets 200. Sodium 142, potassium 4.4, BUN 19, creatinine 1.2, glucose 114. ASSESSMENT AND PLAN: Mr. Jeffry Denson is a 73-year-old male with leukocytosis, anemia, hyperglycemia, history of sepsis, rule out sepsis, history of gouty arthritis, tachycardia, rash, joint pain, leukocytosis. Discussion done with emergency room physician, Consult called with Dr. Bear, Infectious Disease and Dr. Jenkins, Orthopedic. Dr. Jenkins saw the patient in the emergency room and tap the joint. Patient got Azactam in the emergency room and Dr. Galarza put Azactam, got vancomycin and continue vancomycin. Gastrointestinal, deep venous thrombosis prophylaxis. Repeat labs. We will follow up. Mary Roper MD MTDKelli
[2018-05-09] MEDS: Aztreonam 2 Gm in NS 100mL 100 ML IVPB SCH ×3 (05:28→21:22)
[2018-05-09] MEDS: Arformoterol 15 mcg/2 ml Inh Sol IH SCH ×2 (07:21→19:17)
[2018-05-09] MEDS ORDERED: Fluticasone-Salmeterol 500-50mcg Diskus INH SCH (10:00)
[2018-05-09] MEDS: Enoxaparin 40 mg Syringe SC SCH (10:17)
[2018-05-09] MEDS: Linezolid 600 mg in D5W 300 ml 600 MG/300 ML BAG IVPB SCH ×2 (10:18→22:27)
--- NOTE | 2018-05-09 11:06 | CT ---
Date of service: 05/09/2018 PROCEDURE: CT Chest with contrast (Pulmonary Angiogram) HISTORY: s tachycardiaelevated d-dimer,history elevated PSA COMPARISON: None available. TECHNIQUE: Axial computed tomography images were obtained of the chest in the pulmonary arterial phase of enhancement. Coronal and sagittal reformatted images were created and reviewed. Intravenous contrast dose: 100 cc of Omni 350 Radiation dose: Total exam DLP = 377 mGy-cm. This CT exam was performed using one or more of the following dose reduction techniques: Automated exposure control, adjustment of the mA and/or kV according to patient size, and/or use of iterative reconstruction technique. FINDINGS: PULMONARY ARTERIES: Unremarkable. No pulmonary embolism. AORTA: No acute findings. No thoracic aortic aneurysm. LUNGS: Unremarkable. No nodule, mass or pulmonary consolidation. PLEURAL SPACES: Unremarkable. No effusion or pneumothorax. HEART: Unremarkable. No cardiomegaly. No significant pericardial effusion. Coronary artery calcifications are seen LYMPH NODES: No lymphadenopathy. BONES, CHEST WALL: Unremarkable. No fracture or destructive lesion OTHER FINDINGS: The report concurs with the preliminary [facility] report IMPRESSION: Unremarkable CT pulmonary angiogram. No pulmonary embolus.
--- NOTE | 2018-05-09 14:22 | CP.PCM.CON ---
History of Present Illness - History of Present Illness History of Present Illness: 73 year old male with PMH of severe sepsis due to bilateral lower lobe HCAP, maculopapular rash probably from Zosyn, gout, HTN, COPD, GERD came in to [facility] complaining of pain and swelling of his hands and feet as well as lower extremities for the past several days. In the ED, he was noted to have fevers. He denies cough or colds, no nausea or vomiting, no headache or dizziness, no chest pain, no SOB, no abdominal pain, no sore throat, no diarrhea, no dysuria. He was noted to have leukocytosis as well in the ED. Infectious diseases consult is requested to further evaluate and manage. Review of Systems - Review of Systems All systems: reviewed and no additional remarkable complaints except Past Patient History - Infectious Disease Hx of Infectious Diseases: None - Past Social History Smoking Status: Former Smoker - CARDIAC Hx Hypertension: Yes - PULMONARY Hx Chronic Obstructive Pulmonary Disease (COPD): Yes - NEUROLOGICAL Hx Neurological Disorder: No - HEENT Hx HEENT Problems: No - ENDOCRINE/METABOLIC Hx Endocrine Disorders: No - HEMATOLOGICAL/ONCOLOGICAL Hx Blood Disorders: No - INTEGUMENTARY Hx Dermatological Problems: No - MUSCULOSKELETAL/RHEUMATOLOGICAL Hx Arthritis: Yes - GASTROINTESTINAL Hx Gastrointestinal Disorders: No - GENITOURINARY/GYNECOLOGICAL Hx Genitourinary Disorders: No - PSYCHIATRIC Hx Psychophysiologic Disorder: No Hx Substance Use: No - SURGICAL HISTORY Hx Surgeries: No - ANESTHESIA Hx Anesthesia: No Meds Allergies/Adverse Reactions: Allergies Allergy/AdvReac Type Severity Reaction Status Date / Time levofloxacin [From Levaquin] Allergy RASH Verified 03/28/18 01:35 Penicillins Allergy RASH Verified 03/28/18 06:48 vancomycin Allergy SHORTNESS Verified 05/08/18 18:47 OF BREATH Physical Exam - Constitutional Appears: Chronically Ill - Head Exam Head Exam: NORMAL INSPECTION - ENT Exam ENT Exam: Mucous Membranes Moist - Neck Exam Neck exam: Negative for: Meningismus - Respiratory Exam Respiratory Exam: Decreased Breath Sounds - Cardiovascular Exam Cardiovascular Exam: +S1, +S2 - GI/Abdominal Exam GI & Abdominal Exam: Soft. absent: Tenderness - Extremities Exam Additional comments: swelling of hands and feet with erythema Results - Vital Signs Recent Vital Signs: Last Vital Signs Temp 99.2 F 05/08/18 17:01 Pulse 125 H 05/08/18 17:01 Resp 18 05/08/18 15:29 BP 133/75 05/08/18 17:01 Pulse Ox 96 05/08/18 17:01 - Labs Result Diagrams: 05/08/18 12:30 05/08/18 12:30 Assessment & Plan - Assessment and Plan (Free Text) Plan: Assessment systemic inflammatory response syndrome, consider due to inflammatory arthritis from gout, R/O sepsis from septic arthritis history of severe sepsis due to bilateral lower lobe HCAP maculopapular rash probably from Zosyn gout HTN COPD GERD Plan started Zyvox, Azactam pending blood cx, cultures of synovial fluid (it was tapped yesterday) and will monitor clinically continue gout medications
--- NOTE | 2018-05-09 14:28 | PN ---
DATE: 05/09/2018 LOCATION: A 73-year-old male in room 260, bed 2. SUBJECTIVE: Yesterday, we saw him for multiple joint pains from gouty arthropathy where he had a prepatellar bursa quite erythematous and swollen with right knee that was injected with Depo-Medrol and Marcaine and a fusion of the right knee that was injected with Depo-Medrol and the left big toe that was inflamed also, and hyperemic and tender. Today, when we evaluated him, there is much less swelling in all 3 areas. He still has some residual pain and discomfort, but it is improved and the ankle has less swelling and the bursa on the right prepatellar region is less and there is less pain in the left big toe and he is on prednisone for his condition and he does have an advanced gouty arthritis of all those joints mentioned as well as his hand. We will see if we get him a Rheumatology consult to oversee erythema there, maybe something else that could be done, but no more Depo-Medrol injections are planned yet because he does feel better from all those 3 injections. We will just have to provide him with therapy and continue the medications for gouty arthritis. Shon Jenkins DO
--- NOTE | 2018-05-09 17:05 | CARD ---
APPROVED REPORT Date of service: 05/08/2018 EKG Measurement Heart [id number] <Conclusion> arm lead reversal, Sinus tachycardia Abnormal ECG
[2018-05-09] MEDS ORDERED: Albuterol-Ipratrop 3 mg / 0.5 (3 ml) UD IH PRN (17:20)
--- NOTE | 2018-05-09 22:23 | PN ---
DATE: 05/09/2018 SUBJECTIVE: Patient is a 73-year-old male. Patient is seen and examined at the bedside, looking comfortable. Still complaining about pain in the extremities, especially knees and hands. No nausea, vomiting, or diarrhea. No hematuria or hematochezia. No headache, no dizziness. No chest pain, no palpitation. No fever, no chills. PHYSICAL EXAMINATION: VITAL SIGNS: Temperature 99.2, pulse 125, respiratory rate 18, blood pressure 133/75, pulse oximetry 96%. HEENT: Head: Normocephalic, atraumatic. Eyes: PERRLA. Extraocular muscles intact. Conjunctivae clear. Nose: Patent. Mucous membranes moist. NECK: Supple. No carotid bruit, JVD, or thyromegaly. CHEST: Bilaterally symmetrical. HEART: S1 and S2 positive. LUNGS: Clear to auscultation. ABDOMEN: Soft. Bowel sounds present. No organomegaly. EXTREMITIES: Knees, ankles, and hand fingers are swollen. No cyanosis. NEUROLOGIC: Patient is awake and alert. Moving all four extremities. No focal deficits. LABORATORY DATA: White blood cells 23.5, hemoglobin 13.7, hematocrit 40.5, platelets 200. Sodium 142, potassium 4.4, BUN 19, creatinine 1.2, glucose 114. ASSESSMENT AND PLAN: Mr. Jeffry Denson is a 73-year-old male with leukocytosis, anemia, thrombocytosis, has systemic inflammatory response syndrome, considered due to inflammatory arthritis from his gout, ruled out sepsis from septic arthritis, history of severe sepsis due to bilateral lower lobe healthcare-associated pneumonia, maculopapular rash probably from his Zosyn, hypertension, chronic obstructive pulmonary disease, gastroesophageal reflux disease, dyspepsia. Patient is taking Zyvox, Azactam. Pending up on blood cultures, cultures of synovial fluid, it was tapped by Dr. Jeknins yesterday. Continue the medications, colchicine and allopurinol. Gastrointestinal and deep vein thrombosis prophylaxis. CAT scan of the chest done, showed no fracture or destructive lesions. Unremarkable CT pulmonary angio, no pulmonary embolism. We will follow up. Mary Roper MD
[2018-05-10] MEDS: Aztreonam 2 Gm in NS 100mL 100 ML IVPB SCH (05:22)
[2018-05-10] MEDS: Arformoterol 15 mcg/2 ml Inh Sol IH SCH ×2 (07:35→19:34)
[2018-05-10] MEDS: Budesonide 0.5 mg/2 ml Inhal Susp UD IH SCH ×2 (07:36→19:34)
[2018-05-10] MEDS: Enoxaparin 40 mg Syringe SC SCH (09:20)
[2018-05-10] MEDS: Linezolid 600 mg in D5W 300 ml 600 MG/300 ML BAG IVPB SCH (09:20)
[2018-05-10 10:59] LABS: GRAN # 22.12 (1.4-6.5); GRAN % 95.2 % (50.0-68.0); LYMPH # 0.8 (1.2-3.4); LYMPH % 3.5 % (22.0-35.0); MEAN CELL VOLUME 90.8 fl (80.0-105.0); MEAN CORPUSCULAR HEMOGLOBIN 30.6 pg (25.0-35.0); MEAN CORPUSCULAR HGB CONC 33.7 g/dl (31.0-37.0); MEAN PLATELET VOLUME 9.4 fl (7.0-11.0); MONO # 0.3 (0.1-0.6); MONO % 1.3 % (1.0-6.0); RBC 3.59 10^6/uL (3.5-6.1); RED CELL DISTRIBUTION WIDTH 13.4 % (11.5-14.5); WHITE BLOOD COUNT 23.3 10^3/ul (4.5-11.0)
--- NOTE | 2018-05-10 14:15 | CP.PCM.PN ---
Subjective - Date & Time of Evaluation Date of Evaluation: 05/10/18 Time of Evaluation: 10:15 - Subjective Subjective: No fevers, less pain in the knees, ankles, hands. Objective - Vital Signs/Intake and Output Vital Signs (last 24 hours): Temp Pulse Resp BP Pulse Ox 98.6 F 113 H 20 120/70 96 05/10/18 06:00 05/10/18 10:00 05/10/18 06:00 05/10/18 09:19 05/10/18 06:00 Intake and Output: 05/10/18 05/10/18 06:59 18:59 Intake Total 740 Output Total 550 Balance 190 - Medications Medications: Current Medications Acetaminophen (Tylenol 325mg Tab) 650 mg PO Q4H PRN PRN Reason: Pain, moderate (4-7) Last Admin: 05/09/18 17:47 Dose: 650 mg Albuterol/Ipratropium (Duoneb 3 Mg/0.5 Mg (3 Ml) Ud) 3 ml IH Q6 PRN PRN Reason: Wheezing Allopurinol (Zyloprim) 100 mg PO TID [facility] Last Admin: 05/10/18 09:19 Dose: 100 mg Arformoterol Tartrate (Brovana) 15 mcg IH [id number] [facility] Last Admin: 05/10/18 07:35 Dose: 15 mcg Budesonide (Pulmicort Respules) 1 mg IH [id number] [facility] Last Admin: 05/10/18 07:36 Dose: 1 mg Colchicine (Colocrys) 0.6 mg PO DAILY [facility] Last Admin: 05/10/18 09:19 Dose: 0.6 mg Enoxaparin Sodium (Lovenox) 40 mg SC DAILY [facility] PRN Reason: Protocol Last Admin: 05/10/18 09:20 Dose: 40 mg Losartan Potassium (Cozaar) 50 mg PO DAILY [facility] Last Admin: 05/10/18 09:19 Dose: 50 mg Prednisone (Prednisone Tab) 10 mg PO BRK [facility] Last Admin: 05/10/18 09:19 Dose: 10 mg - Labs Labs: PT 12.5 SECONDS (9.4-12.5) 05/08/18 12:30 INR 1.09 (0.93-1.08) H 05/08/18 12:30 APTT 30.2 Seconds (25.1-36.5) 05/08/18 12:30 - Constitutional Appears: Non-toxic, Chronically Ill - Head Exam Head Exam: NORMAL INSPECTION - ENT Exam ENT Exam: Mucous Membranes Moist - Neck Exam Neck Exam: absent: Meningismus - Respiratory Exam Respiratory Exam: Decreased Breath Sounds - Cardiovascular Exam Cardiovascular Exam: +S1, +S2 - GI/Abdominal Exam GI & Abdominal Exam: Soft. absent: Tenderness Assessment and Plan - Assessment and Plan (Free Text) Plan: Assessment systemic inflammatory response syndrome, consider due to inflammatory arthritis from gout S/P arthrocentesis, unlikely septic arthritis history of severe sepsis due to bilateral lower lobe HCAP maculopapular rash probably from Zosyn gout HTN COPD GERD Plan blood cx are negative - we doubt septic arthritis since he quickly defervesced after arthrocentesis; follow up synovial fluid analysis continue gout medications
--- NOTE | 2018-05-10 19:31 | US ---
HISTORY: Leg pain and swelling. Evaluate for DVT PHYSICIAN(S): Roberto Carlos Galvez MD. TECHNIQUE: Duplex sonography and color-flow Doppler with graded compression were used to evaluate the deep venous systems of both lower extremities. FINDINGS: The visualized deep venous systems of both lower extremities are sonographically normal and compressible. Normal wave forms and augmentation are seen. There is no sonographic evidence for deep venous thrombosis in the visualized segments of both lower extremities. IMPRESSION: No sonographic evidence for deep venous thrombosis in the visualized segments of both lower extremities.
[2018-05-10] MEDS ORDERED: HYDROmorphone 0.5 mg/0.5 ml ISec IVP PRN (20:33)
[2018-05-10] MEDS: MethylPREDNISolone 40 mg Vial IVP SCH (21:18)
--- NOTE | 2018-05-11 01:54 | PN ---
DATE: 05/10/2018 SUBJECTIVE: Patient is a 73-year-old male. Patient was seen and examined at the bedside, looking comfortable except the pain in the both knees and big toes. No fever, no chills. No headache, no dizziness. No hematuria or hematochezia. PHYSICAL EXAMINATION: VITAL SIGNS: Temperature 98.6, pulse 113, respiratory rate 20, blood pressure 120/70, pulse oximetry of 96. HEENT: Head: Normocephalic, atraumatic. Eyes PERRLA. Extraocular muscles intact. Conjunctivae clear. Nose patent. Mucous membranes moist. NECK: Supple. No carotid bruit, JVD, or thyromegaly. CHEST: Bilaterally symmetrical. HEART: S1 and S2 positive. LUNGS: Clear to auscultation. ABDOMEN: Soft. Bowel sounds present. No organomegaly. EXTREMITIES: No edema, no cyanosis except that both knees and big toes are red, warm, and tender. NEUROLOGIC: Patient is awake and alert. Moving all four extremities. No focal deficits MEDICATIONS: DuoNeb, allopurinol, Brovana, Pulmicort, colchicine, Lovenox, Cozaar, prednisone 10 mg. LABORATORY DATA: White blood cells 22.3, hemoglobin 11, hematocrit 32.6, platelets 203. Sodium 142, potassium 4.4, BUN 19, creatinine 1, glucose 114. AST 107, ALT 71. C-reactive protein is more than 3, prolactin of 4.03. Patient's urine has protein, glucose, and ketones. ASSESSMENT AND PLAN: Mr. Jeffry Denson is a 73-year-old male with leukocytosis, anemia, hyperglycemia, abnormal liver function test, proteinuria, glucosuria, ketonuria, seen by Dr. Deejay Galarza, Infectious Disease, to rule out sepsis and Dr. Jenkins, Orthopedics. Patient has systemic inflammatory response syndrome, considered due to inflammatory arthritis from gout, status post arthrocentesis by Dr. Jenkins, unlikely septic arthritis; history of severe sepsis due bilateral lower lobe pneumonia in the past; maculopapular rash, probably from Zosyn, improved; chronic obstructive pulmonary disease; gastroesophageal reflux disease; dyspepsia. Blood cultures are negative. According to ID, without septic arthritis, defervescent after arthrocentesis. Follow up synovial fluid analysis. Continue gouty medication. I will start patient on Solu-Medrol. We will follow up. Mary oRper MD [facility]
[2018-05-11] MEDS: Budesonide 0.5 mg/2 ml Inhal Susp UD IH SCH ×2 (08:07→20:52)
[2018-05-11] MEDS: Arformoterol 15 mcg/2 ml Inh Sol IH SCH ×2 (08:07→20:52)
[2018-05-11] MEDS: Enoxaparin 40 mg Syringe SC SCH ×2 (09:32→09:36)
[2018-05-11] MEDS: MethylPREDNISolone 40 mg Vial IVP SCH ×2 (09:32→21:43)
[2018-05-11] MEDS ORDERED: HYDROmorphone 0.5 mg/0.5 ml ISec IVP PRN (18:59)
--- NOTE | 2018-05-11 22:49 | PN ---
DATE: 05/11/2018 SUBJECTIVE: Patient is a 73-year-old male. Patient was seen on the bedside, looking comfortable, still complaining about pain in the knees and big toes bilaterally, but is getting better, very slowly getting better. No headache, no dizziness, no chest pain, no palpitation. No fever, no chills. PHYSICAL EXAMINATION: VITAL SIGNS: Temperature 98, pulse 92, blood pressure 151/80, respiratory rate 20. HEENT: Head: Normocephalic, atraumatic. Eyes: PERRLA. Extraocular muscles intact. Conjunctivae clear. Nose: Patent. Mucous membrane moist. NECK: Supple. No carotid bruit. No JVD. No thyromegaly. CHEST: Bilaterally symmetrical. HEART: S1 and S2 positive. LUNGS: Clear to auscultation. ABDOMEN: Soft. Bowel sounds present. No organomegaly. EXTREMITIES: Both knees and both big toes are red, warm, tender, but getting better. NEUROLOGICAL: Patient is awake and alert. Moving all four extremities. No focal deficits. MEDICATIONS: Brovana, colchicine, Cozaar, Dilaudid, albuterol, Lovenox, Pepcid, Pulmicort, Solu-Medrol, Tylenol, and allopurinol. LABORATORY DATA: We do not have recent labs today, but reviewed the old labs. Uric acid 5.6. C-reactive protein is more than 15, prolactin of 4.03. ASSESSMENT AND PLAN: Mr. Jeffry Denson is 73-year-old male with history of asthma and chronic obstructive pulmonary disease, came with exacerbation of gouty arthritis, history of leukocytosis, anemia, hyperglycemia, abnormal liver function test, proteinuria, glucosuria, ketonuria. ID is on the case, rule out sepsis and Dr. Jenkins, Orthopedics, is on the case also. Patient has systemic inflammatory response syndrome, considered due to inflammation of the arthritis from gout, status post arthrocentesis by Dr. Jenkins. According to Dr. Jenkins, it looks like less septic, more chances of gouty arthritis. Maculopapular rash on the skin may be due to Zosyn, improved. Chronic obstructive lung disease, gastroesophageal reflux disease, dysuria. Out of bed, physical therapy, tapering dose of steroid, repeat labs. We will follow up. Mary Roper MD [facility] # [id number]
[2018-05-12 06:43] LABS: HEMOGLOBIN 10.7 g/dL (14.0-18.0); MEAN CELL VOLUME 89.9 fl (80.0-105.0); MEAN CORPUSCULAR HEMOGLOBIN 30.1 pg (25.0-35.0); MEAN CORPUSCULAR HGB CONC 33.4 g/dl (31.0-37.0); MEAN PLATELET VOLUME 9.2 fl (7.0-11.0); RBC 3.56 10^6/uL (3.5-6.1); RED CELL DISTRIBUTION WIDTH 13.1 % (11.5-14.5)
[2018-05-12 06:57] LABS: BLOOD UREA NITROGEN 31 mg/dL (7-21); CALCIUM 8.7 mg/dL (8.4-10.5); GFR AFRICAN-AMERICAN > 60; GFR NON-AFRICAN AMERICAN > 60
[2018-05-12 07:15] LABS: WHITE BLOOD COUNT 12.4 10^3/ul (4.5-11.0)
[2018-05-12] MEDS: Arformoterol 15 mcg/2 ml Inh Sol IH SCH ×2 (07:31→20:04)
[2018-05-12] MEDS: Budesonide 0.5 mg/2 ml Inhal Susp UD IH SCH ×2 (07:31→20:04)
[2018-05-12] MEDS: MethylPREDNISolone 40 mg Vial IVP SCH ×2 (09:11→22:04)
[2018-05-12] MEDS: Enoxaparin 40 mg Syringe SC SCH (09:13)
--- NOTE | 2018-05-12 14:44 | CP.PCM.PN ---
Subjective - Date & Time of Evaluation Date of Evaluation: 05/12/18 Time of Evaluation: 09:50 - Subjective Subjective: Still with pain in the hands and knees but no fevers. Objective - Vital Signs/Intake and Output Vital Signs (last 24 hours): Temp Pulse Resp BP Pulse Ox 98 F 98 H 19 110/72 97 05/12/18 06:00 05/12/18 06:00 05/12/18 06:00 05/12/18 06:00 05/12/18 06:00 Intake and Output: 05/12/18 05/12/18 06:59 18:59 Intake Total 200 Output Total 700 Balance -500 - Medications Medications: Current Medications Acetaminophen (Tylenol 325mg Tab) 650 mg PO Q4H PRN PRN Reason: Pain, moderate (4-7) Last Admin: 05/11/18 21:42 Dose: 650 mg Albuterol/Ipratropium (Duoneb 3 Mg/0.5 Mg (3 Ml) Ud) 3 ml IH Q6 PRN PRN Reason: Wheezing Last Admin: 05/12/18 03:30 Dose: 3 ml Allopurinol (Zyloprim) 100 mg PO TID [facility] Last Admin: 05/11/18 17:40 Dose: 100 mg Arformoterol Tartrate (Brovana) 15 mcg IH [id number] [facility] Last Admin: 05/11/18 20:52 Dose: 15 mcg Budesonide (Pulmicort Respules) 1 mg IH [id number] [facility] Last Admin: 05/11/18 20:52 Dose: 1 mg Colchicine (Colocrys) 0.6 mg PO DAILY [facility] Last Admin: 05/11/18 09:33 Dose: 0.6 mg Enoxaparin Sodium (Lovenox) 40 mg SC DAILY [facility] PRN Reason: Protocol Last Admin: 05/11/18 09:36 Dose: Not Given Famotidine (Pepcid) 40 mg PO HS [facility] Last Admin: 05/11/18 21:43 Dose: 40 mg Hydromorphone HCl (Dilaudid) 0.25 mg IVP Q6H PRN PRN Reason: Pain, Mild (1-3) Losartan Potassium (Cozaar) 50 mg PO DAILY [facility] Last Admin: 05/11/18 09:32 Dose: 50 mg Methylprednisolone (Solu-Medrol) 30 mg IVP Q12 [facility] Last Admin: 05/11/18 21:43 Dose: 30 mg - Labs Labs: 05/10/18 08:30 05/12/18 06:00 PT 12.5 SECONDS (9.4-12.5) 05/08/18 12:30 INR 1.09 (0.93-1.08) H 05/08/18 12:30 APTT 30.2 Seconds (25.1-36.5) 05/08/18 12:30 - Constitutional Appears: Chronically Ill - Head Exam Head Exam: NORMAL INSPECTION - Neck Exam Neck Exam: absent: Meningismus - Respiratory Exam Respiratory Exam: Decreased Breath Sounds - Cardiovascular Exam Cardiovascular Exam: +S1, +S2 - GI/Abdominal Exam GI & Abdominal Exam: Soft. absent: Tenderness Assessment and Plan - Assessment and Plan (Free Text) Plan: Assessment systemic inflammatory response syndrome, consider due to inflammatory arthritis from gout S/P arthrocentesis, unlikely septic arthritis history of severe sepsis due to bilateral lower lobe HCAP maculopapular rash probably from Zosyn gout HTN COPD GERD Plan blood cx are negative - we doubt septic arthritis since he quickly defervesced after arthrocentesis; follow up synovial fluid analysis continue gout medications will monitor clinically of antibiotics
[2018-05-12] MEDS ORDERED: HYDROmorphone 0.5 mg/0.5 ml ISec IVP PRN (22:55)
--- NOTE | 2018-05-13 02:23 | PN ---
DATE: 05/12/2018 SUBJECTIVE: Patient is a 73-year-old male. Patient was seen and examined at the bedside on 05/12/2018, looking comfortable. Still having pain in the hands, knees and especially big toes, but getting better. Especially knee and toes redness and warmth is less. No hematuria or hematochezia. No headache, no dizziness. No fever, no chills. PHYSICAL EXAMINATION: VITAL SIGNS: Temperature 98, pulse 98, respiratory rate 19, blood pressure 110/72, pulse oximetry of 97. HEENT: Head, normocephalic, atraumatic. Eyes PERRLA. Extraocular muscles intact. Conjunctivae clear. Nose patent. NECK: Supple. No carotid bruit, JVD, or thyromegaly. CHEST: Bilaterally symmetrical. HEART: S1 and S2 positive. LUNGS: Clear to auscultation. ABDOMEN: Soft. Bowel sounds present. No organomegaly. EXTREMITIES: No edema, no cyanosis. NEUROLOGIC: Patient is awake and alert. Moving all four extremities. No focal deficits. MEDICATIONS: DuoNeb, allopurinol, Brovana, Pulmicort, colchicine, Lovenox, Pepcid, Dilaudid, Cozaar, Solu-Medrol. LABORATORY DATA: White blood cells 23.3, hemoglobin 11, hematocrit noted platelets 203. Sodium 140, potassium 3.6, BUN 31, creatinine 0.9, glucose 149. ASSESSMENT AND PLAN: Mr. Jeffry Denson is a 73-year-old male with leukocytosis, anemia, hyperglycemia, systemic inflammatory response syndrome, status post gouty arthritis unlike septic arthritis , due to bilateral lower lobe healthcare-associated pneumonia; maculopapular rash probably from Zosyn; hypertension, chronic obstructive pulmonary disease, gastroesophageal reflux disease, dyspepsia; getting tapering doses of steroids, we will try to do rehab. Continue gout medications, tapering doses of steroid. Repeat labs. Mary Roper MD [facility]
[2018-05-13] MEDS: Arformoterol 15 mcg/2 ml Inh Sol IH SCH ×2 (07:44→19:48)
[2018-05-13] MEDS: Budesonide 0.5 mg/2 ml Inhal Susp UD IH SCH ×2 (07:44→19:48)
[2018-05-13] MEDS: Enoxaparin 40 mg Syringe SC SCH (09:19)
[2018-05-13] MEDS: MethylPREDNISolone 40 mg Vial IVP SCH ×2 (09:20→21:40)
--- NOTE | 2018-05-13 13:29 | PN ---
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 No nausea or vomiting. PHYSICAL EXAMINATION: VITAL SIGNS: Temperature 98, blood pressure around 110/70, respiratory rate 19, heart rate of 84. HEENT: Examination is unremarkable. NECK: Supple. LUNGS: Have decreased breath sounds. HEART: Normal S1, S2. ABDOMEN: Soft, nontender. DATA: Laboratory examination is noted, white count appears to be improving and chemistries are reviewed. Microbiology is noted. ASSESSMENT AND PLAN: This is a 73-year-old male who was seen on 05/11/2018 with systemic inflammatory response syndrome, status post arthritis from gout, status post arthrocentesis and likely the septic arthritis in a patient with hypertension, chronic obstructive disease and gastroesophageal reflux disease and culture is negative. Off of antibiotics and continue to follow with you. The patient has risk for developing nosocomial infection. Malvin Bear MD
--- NOTE | 2018-05-13 15:29 | CP.PCM.PN ---
Subjective - Date & Time of Evaluation Date of Evaluation: 05/13/18 Time of Evaluation: 11:00 - Subjective Subjective: No fevers, but still having pain in hands and knees but better. Objective - Vital Signs/Intake and Output Vital Signs (last 24 hours): Temp Pulse Resp BP Pulse Ox 98.0 F 86 19 158/83 H 97 05/12/18 18:00 05/12/18 18:00 05/12/18 18:00 05/12/18 18:00 05/12/18 18:00 Intake and Output: 05/13/18 05/13/18 06:59 18:59 Intake Total 120 Output Total 1000 Balance -880 - Medications Medications: Current Medications Acetaminophen (Tylenol 325mg Tab) 650 mg PO Q4H PRN PRN Reason: Pain, moderate (4-7) Last Admin: 05/12/18 09:11 Dose: 650 mg Albuterol/Ipratropium (Duoneb 3 Mg/0.5 Mg (3 Ml) Ud) 3 ml IH Q6 PRN PRN Reason: Wheezing Last Admin: 05/12/18 03:30 Dose: 3 ml Allopurinol (Zyloprim) 100 mg PO TID [facility] Last Admin: 05/12/18 17:21 Dose: 100 mg Arformoterol Tartrate (Brovana) 15 mcg IH [id number] [facility] Last Admin: 05/12/18 20:04 Dose: 15 mcg Budesonide (Pulmicort Respules) 1 mg IH [id number] [facility] Last Admin: 05/12/18 20:04 Dose: 1 mg Colchicine (Colocrys) 0.6 mg PO DAILY [facility] Last Admin: 05/12/18 09:10 Dose: 0.6 mg Enoxaparin Sodium (Lovenox) 40 mg SC DAILY [facility] PRN Reason: Protocol Last Admin: 05/12/18 09:13 Dose: Not Given Famotidine (Pepcid) 40 mg PO HS [facility] Last Admin: 05/12/18 22:04 Dose: 40 mg Hydromorphone HCl (Dilaudid) 0.25 mg IVP Q8H PRN PRN Reason: Pain, Mild (1-3) Losartan Potassium (Cozaar) 50 mg PO DAILY [facility] Last Admin: 05/12/18 09:11 Dose: 50 mg Methylprednisolone (Solu-Medrol) 20 mg IVP Q12 BLANK - Labs Labs: 05/12/18 06:00 05/12/18 06:00 PT 12.5 SECONDS (9.4-12.5) 05/08/18 12:30 INR 1.09 (0.93-1.08) H 05/08/18 12:30 APTT 30.2 Seconds (25.1-36.5) 05/08/18 12:30 - Constitutional Appears: Non-toxic, Chronically Ill - Head Exam Head Exam: NORMAL INSPECTION - Neck Exam Neck Exam: absent: Meningismus - Respiratory Exam Respiratory Exam: Decreased Breath Sounds - Cardiovascular Exam Cardiovascular Exam: +S1, +S2 - GI/Abdominal Exam GI & Abdominal Exam: Soft. absent: Tenderness Assessment and Plan - Assessment and Plan (Free Text) Plan: Assessment S/P systemic inflammatory response syndrome, consider due to inflammatory arthritis from gout S/P arthrocentesis, unlikely septic arthritis history of severe sepsis due to bilateral lower lobe HCAP maculopapular rash probably from Zosyn gout HTN COPD GERD Plan blood cx are negative - we doubt septic arthritis since he quickly defervesced after arthrocentesis; follow up synovial fluid analysis continue gout medications will monitor clinically of antibiotics
[2018-05-13] MEDS ORDERED: MethylPREDNISolone 40 mg Vial IVP SCH (23:38)
--- NOTE | 2018-05-14 04:24 | PN ---
DATE: 05/13/2018 SUBJECTIVE: The patient is a 73-year-old male. The patient was seen and examined on the bedside on 05/13/2018, looking comfortable. Actually sitting on the chair, having lunch. No nausea, vomiting, or diarrhea. No hematuria or hematochezia. No swelling of the legs. No headache, no dizziness. No chest pain, no palpitation. No fever, no chills. PHYSICAL EXAMINATION: VITAL SIGNS: Temperature 97.9, pulse 84, blood pressure 120/80 , respiratory rate 19. HEENT: Head, normocephalic, atraumatic. Eyes PERRLA. Extraocular muscles intact. Conjunctivae clear. Nose patent. Mucous membrane moist. NECK: Supple. No carotid bruit. No JVD or thyromegaly. CHEST: Bilaterally symmetrical. HEART: S1 and S2 positive. LUNGS: Clear to auscultation. ABDOMEN: Soft. Bowel sounds present. No organomegaly. EXTREMITIES: No edema, no cyanosis. NEUROLOGIC: Patient is awake and alert. Moving all four extremities. No focal deficits. MEDICATIONS: Brovana, colchicine, Cozaar, Dilaudid, DuoNeb, Lovenox, Pepcid, Pulmicort, Solu-Medrol, Tylenol, allopurinol. LABORATORY DATA: White blood cells 12.4, hemoglobin 10.7, hematocrit 32, platelets 225,000. Sodium 140, potassium 3.4, BUN 31, creatinine 0.9, and glucose 149. ASSESSMENT AND PLAN: Mr. Jeffry Denson is a 73-year-old male with leukocytosis, anemia, hyperglycemia, abnormal liver function test, proteinuria, ketonuria, came with exacerbation of gouty arthritis. Have systemic inflammatory response syndrome, status post arthritis from gout, status post arthrocentesis and unlikely the septic arthritis in the patient with hypertension, chronic obstructive pulmonary disease, gastroesophageal reflux disease, cultures are negative. Off the antibiotics and continue follow up. The patient is at high risk of developing nosocomial infection, the patient is getting tapering doses of steroid, getting physical therapy. We will make discharge planning. Mary Roper MD [facility] # [id number] [facility]
[2018-05-14] MEDS: Arformoterol 15 mcg/2 ml Inh Sol IH SCH (07:26)
[2018-05-14] MEDS: Budesonide 0.5 mg/2 ml Inhal Susp UD IH SCH (07:26)
[2018-05-14 08:57] VITALS: BP 151/89; PULSE 86; RESP 20; TEMP 98; O2SAT 97
--- NOTE | 2018-05-15 18:40 | DS ---
CHIEF COMPLAINT: Pain in the knees, hands, fingers and wrist. HISTORY OF PRESENT ILLNESS: Mr. Jeffry Denson is a 73-year-old male, my private patient with past medical history of gouty arthritis, history of sepsis, COPD, asthma, came to the emergency department, complaining of pain in the lower extremities, both knees, hands, feet, and also diffuse rash that started on the day of admission. He denies coughing. Denies headache, fever, chills. No nausea, vomiting or diarrhea. No hematuria. No hematochezia. No headache. No dizziness. We admitted the patient. Started on Solu-Medrol. Orthopedic consult called with Dr. Jenkins. ID was on the case also to rule out septic arthritis. Got antibiotics, Solu-Medrol tapering doses, with physical therapy, improved. Plan was to send patient to TCU but patient refused. Discharged home on 05/14/2018. Medicines were provided at the bedside. He will follow up with my office next week. PAST MEDICAL HISTORY: COPD, gouty arthritis, history of sepsis. FAMILY HISTORY: Father and mother, noncontributory. HABITS: Former smoker. No alcohol. No substance abuse. ALLERGIES: PATIENT IS ALLERGIC TO LEVOFLOXACIN AND PENICILLIN. HOME MEDICATIONS: Reviewed by me. REVIEW OF SYSTEMS: Patient was seen and examined at the bedside on 05/14/2018, looking comfortable. No nausea, vomiting or diarrhea. No hematuria or hematochezia. Swelling of the knees, hands, wrist and toes are better. No fever. No chills. PHYSICAL EXAMINATION: VITAL SIGNS: Reviewed by me, stable. Patient is afebrile, respiratory rate 18, pulse 80, blood pressure 120/80. HEENT: Head normocephalic and atraumatic. Eyes, PERRLA. Extraocular muscles intact. Conjunctivae clear. Nose patent. Mucous membranes moist. NECK: Supple. No carotid bruit, JVD or thyromegaly. CHEST: Bilaterally symmetrical. HEART: S1 and S2 positive. LUNGS: Clear to auscultation. ABDOMEN: Soft. Bowel sounds positive. No organomegaly. EXTREMITIES: No edema. No cyanosis. NEUROLOGIC: Patient is awake and alert. Moving all four extremities. No focal deficits. MEDICATIONS: Brovana, colchicine, Cozaar, Dilaudid, Lovenox, Pepcid, Pulmicort, Solu-Medrol tapering doses, Tylenol, allopurinol. LABORATORY DATA: White blood cells 12.4, hemoglobin 10.7, hematocrit 32, platelets 225. Sodium 140, potassium 3.6, BUN 31, creatinine 0.9. Glucose 149. ASSESSMENT AND PLAN: Mr. Jeffry Denson is a 73-year-old male with leukocytosis, anemia, abnormal liver function test. We will do follow up as outpatient. Came with exacerbation of gouty arthritis, history of chronic obstructive pulmonary disease, asthma, hypertension, history of sepsis in the past. Seen by Dr. Deejay Galarza. Has systemic inflammatory response syndrome, consider inflammation and arthritis due to gout, status post arthrocentesis by Dr. Jenkins. History of severe sepsis due to bilateral lower lobe healthcare-associated pneumonia, maculopapular rash probably from Zosyn, gastroesophageal reflux disease, dyspepsia. Blood cultures are negative without septic arthritis defervesced after arthrocentesis. Follow up synovial fluid analysis. Continue gouty medications. Discharged home today. Medicines at the bedside. Mary Roper MD [facility]
== END 2018-05-14 09:48 | disposition home health service (06) | DRG 554 ==
LOC: ED 11:26 → ERH 15:35 → 2RNO 17:55 → 3RSO 05-12 11:36
PROVIDERS: ADMIT Internal Medicine; ATTEND Internal Medicine
DX: M10.9 Gout, unspecified (principal); R65.10 Systemic inflammatory response syndrome (SIRS) of non-infectious origin without acute organ dysfunction; M06.4 Inflammatory polyarthropathy; D64.9 Anemia, unspecified; I10 Essential (primary) hypertension; J44.9 Chronic obstructive pulmonary disease, unspecified; K21.9 Gastro-esophageal reflux disease without esophagitis; M19.90 Unspecified osteoarthritis, unspecified site; Z87.01 Personal history of pneumonia (recurrent); Z87.891 Personal history of nicotine dependence; Z88.1 Allergy status to other antibiotic agents; Z88.0 Allergy status to penicillin; Z86.19 Personal history of other infectious and parasitic diseases

== ENCOUNTER 2018-09-20 03:08 | Inpatient (IN) | payer OTHER ==
[2018-09-20 03:08] VITALS: BMI 23.0
[2018-09-20] MEDS: Albuterol-Ipratrop 3 mg / 0.5 (3 ml) UD IH SCH ×6 (03:15→23:30)
[2018-09-20] MEDS ORDERED: Magnesium Sulfate 2 gm/50 ml 2 GM/50 ML BAG IV ONE (03:30)
[2018-09-20 03:34] LABS: BASO # 0.01 K/mm3 (0.0-2.0); BASO % 0.1 % (0.0-3.0); EOS # 0.2 (0.0-0.7); EOS % 1.8 % (1.5-5.0); GRAN # 10.69 (1.4-6.5); LYMPH % 8.1 % (22.0-35.0); MEAN CORPUSCULAR HGB CONC 32.5 g/dl (31.0-37.0); MEAN PLATELET VOLUME 9.5 fl (7.0-11.0); MONO # 0.8 (0.1-0.6); RBC 4.87 10^6/uL (3.5-6.1); RED CELL DISTRIBUTION WIDTH 12.6 % (11.5-14.5); WHITE BLOOD COUNT 12.7 10^3/uL (4.5-11.0)
[2018-09-20 03:40] LABS: HEMOGLOBIN 15.1 g/dL (14.0-18.0); MEAN CELL VOLUME 95.3 fl (80.0-105.0)
[2018-09-20 03:43] LABS: VENOUS BLOOD GAS BASE EXCESS -2.3 mmol/L (0.0-2.0); VENOUS BLOOD GAS PO2 51 mm/Hg (30-55); VENOUS BLOOD PH 7.29 (7.32-7.43)
[2018-09-20 03:49] LABS: ALB/GLOB RATIO 1.3 (1.1-1.8); ALBUMIN 4.5 g/dL (3.0-4.8); ALT/SGPT 31 U/L (7-56); AST/SGOT 37 U/L (17-59); BLOOD UREA NITROGEN 26 mg/dL (7-21); CALCIUM 9.5 mg/dL (8.4-10.5); GFR NON-AFRICAN AMERICAN 54
[2018-09-20 04:01] LABS: B-TYPE NATRIURETIC PEPTIDE 259 pg/mL (0-450); TROPONIN I 0.03 ng/mL
--- NOTE | 2018-09-20 04:11 | ED PDOC ---
Arrival/HPI - General Chief Complaint: Shortness Of Breath Time Seen by Provider: 09/20/18 03:10 Historian: Patient - History of Present Illness Narrative History of Present Illness (Text): 09/20/18 03:10 73 year old male, whose past medical history includes COPD and asthma, who was brought in to the emergency department by ambulance for asthma exacerbation for 1 day. Patient has shortness of breath, positive dry cough, and chest pain only with cough. Patient denies any fever or any other complaints. PMD: Mary Llamas Time/Duration: 24 hours (Patient notes asthma exacerbation for 1 day) Symptom Onset: Sudden Symptom Course: Unchanged Activities at Onset: Light Past Medical History - Provider Review Nursing Documentation Reviewed: Yes - Infectious Disease Hx of Infectious Diseases: None - Cardiac Hx Hypertension: Yes - Pulmonary Hx Chronic Obstructive Pulmonary Disease (COPD): Yes - Neurological Hx Neurological Disorder: No - HEENT Hx HEENT Disorder: No - Endocrine/Metabolic Hx Endocrine Disorders: No - Hematological/Oncological Hx Blood Disorders: No - Integumentary Hx Dermatological Disorder: No - Musculoskeletal/Rheumatological Hx Arthritis: Yes - Gastrointestinal Hx Gastrointestinal Disorders: No - Genitourinary/Gynecological Hx Genitourinary Disorders: No - Psychiatric Hx Psychophysiologic Disorder: No Hx Substance Use: No - Anesthesia Hx Anesthesia: No Family/Social History - Physician Review Nursing Documentation Reviewed: Yes Family/Social History: No Known Family HX Smoking Status: Former Smoker Hx Alcohol Use: No Hx Substance Use: No Allergies/Home Meds Allergies/Adverse Reactions: Allergies levofloxacin [From Levaquin] Allergy (Verified 09/20/18 03:12) RASH Penicillins Allergy (Verified 09/20/18 03:12) RASH vancomycin Allergy (Verified 09/20/18 03:12) SHORTNESS OF BREATH Home Medications: Home Meds Medication Instructions Recorded Confirmed Albuterol/Ipratropium [Duoneb 3 3 ml IH PRN PRN 03/07/18 09/20/18 MG/3 Ml-0.5 MG/3 Ml 3 Ml] Colchicine [Colcrys] 0.6 mg PO PRN 03/07/18 09/20/18 Fluticasone/Salmeterol 500/50 1 puff IN BID 03/07/18 09/20/18 [Advair Diskus 500/50] Losartan [Cozaar] 50 mg PO DAILY 03/07/18 09/20/18 predniSONE [Prednisone] 10 mg PO DAILY 03/07/18 09/20/18 Review of Systems - Physician Review All systems were reviewed & negative as marked: Yes - Review of Systems Constitutional: Normal. absent: Fevers Respiratory: SOB, Cough (positive dry cough). absent: Normal Cardiovascular: Chest Pain (patient notes chest pain, only with cough). absent: Normal Physical Exam Vital Signs Reviewed: Yes Vital Signs Temp Pulse Resp BP Pulse Ox 09/20/18 03:14 98.3 F 136 H 32 H 163/84 H 95 Temperature: Afebrile Blood Pressure: Hypertensive Pulse: Tachycardic Respiratory Rate: Tachypneic Appearance: Positive for: Well-Appearing, Non-Toxic Pain Distress: Mild Mental Status: Positive for: Alert and Oriented X 3 - Systems Exam Head: Present: Atraumatic, Normocephalic Pupils: Present: PERRL Extroacular Muscles: Present: EOMI Conjunctiva: Present: Normal Mouth: Present: Moist Mucous Membranes Neck: Present: Normal Range of Motion Respiratory/Chest: Present: Respiratory Distress (mild respiratory distress ), Wheezes (auditory wheezes thoroughly) Cardiovascular: Present: Regular Rate and Rhythm, Normal S1, S2. No: Murmurs Abdomen: No: Tenderness, Distention, Peritoneal Signs Back: Present: Normal Inspection Upper Extremity: Present: Normal Inspection. No: Cyanosis, Edema Lower Extremity: Present: Normal Inspection. No: Edema Neurological: Present: GCS=15, CN II-XII Intact, Speech Normal Skin: Present: Warm, Dry, Normal Color. No: Rashes Psychiatric: Present: Alert, Oriented x 3, Normal Insight, Normal Concentration Medical Decision Making ED Course and Treatment: 09/20/18 03:05 Impression: 73 year old male who was brought in to the emergency department by ambulance for asthma exacerbation for 1 day. Plan: -- Labs -- EKG -- CBC (with differential) -- X-ray of chest -- Duoneb 3mg/0.5mg (3ml) -- Magnesium Sulfate 2gm/50ml Water -- SOLU-medrol 125mg IVP -- Blood culture -- Influenza A B -- Reassess and disposition Prior Visits: Notes and results from previous visits were reviewed. Patient was last seen in the emergency department on 05/08/18 pain to his lower extremities, both knees, and also diffuse rash that started that morning. Patient hospitalized in serious condition with diagnosis of sepsis, Tachycardia, Rash, Joint pain, and Leukocytosis. Progress Notes: 09/20/18 05:00 No suspected infection. Clear for code sepsis. - Lab Interpretations Lab Results: 09/20/18 03:12 09/20/18 03:12 Lab Results 09/20/18 03:12: Sodium 143, Chloride 107, Potassium 4.7, Carbon Dioxide 25, Anion Gap 16, BUN 26 H, Creatinine 1.3, Est GFR ( Amer) > 60, Est GFR (Non-Af Amer) 54, Random Glucose 121 H, Calcium 9.5, Magnesium 2.2, Total Bilirubin 0.4, AST 37, ALT 31, Alkaline Phosphatase 94, Lactate Dehydrogenase 635, Total Creatine Kinase 110, Troponin I 0.03 D, NT-Pro-B Natriuret Pep 259, Total Protein 7.9, Albumin 4.5, Globulin 3.4, Albumin/Globulin Ratio 1.3 09/20/18 03:12: pO2 51, VBG pH 7.29 L, VBG pCO2 52.0, VBG HCO3 25.0, VBG Total CO2 26.6, VBG O2 Sat (Calc) 87.8 H, VBG Base Excess -2.3 L, VBG Potassium 4.6, Sodium 141.0, Chloride 105.0, Glucose 124 H, Lactate 2.4 H, FiO2 21.0, Venous Blood Potassium 4.6 09/20/18 03:12: WBC 12.7 H, RBC 4.87, Hgb 15.1 D, Hct 46.4, MCV 95.3 D, MCH 31.0, MCHC 32.5, RDW 12.6, Plt Count 197, MPV 9.5, Gran % 84.0 H, Lymph % (Auto) 8.1 L, [place] % (Auto) 6.0, Eos % (Auto) 1.8, Baso % (Auto) 0.1, Gran # 10.69 H, Lymph # (Auto) 1.0 L, [place] # (Auto) 0.8 H, Eos # (Auto) 0.2, Baso # (Auto) 0.01 - RAD Interpretation Narrative RAD Interpretations (Text): 11/26/18 x-ray of chest reviewed by me, shows: no change from previous x-ray. Radiology Orders: 09/20/18 03:14 CHEST PORTABLE [RAD] Stat Receiving Lead: ED Physician - EKG Interpretation EKG Interpretation (Text): 09/20/18 03:20 EKG: Ordered, reviewed, and independently interpreted the EKG. Rate : 126 BPM Rhythm : Sinus tachycardia Interpretation : Normal axis and normal intervals. Interpreted by ED Physician: Yes Type: 12 lead EKG - Medication Orders Current Medication Orders: Discontinued Medications Albuterol/Ipratropium (Duoneb 3 Mg/0.5 Mg (3 Ml) Ud) 3 ml IH Q15M BLANK Stop: 09/20/18 03:46 Magnesium Sulfate (Magnesium Sulfate 2 Gm/50 Ml Water) 2 gm in 50 mls @ 102 mls/hr IV ONCE ONE Stop: 09/20/18 03:59 Methylprednisolone (Solu-Medrol) 125 mg IVP STAT STA Stop: 09/20/18 03:15 - Scribe Statement The provider has reviewed the documentation as recorded by the Scriblincoln Hanson All medical record entries made by the Scribe were at my direction and personally dictated by me. I have reviewed the chart and agree that the record accurately reflects my personal performance of the history, physical exam, medical decision making, and the department course for this patient. I have also personally directed, reviewed, and agree with the discharge instructions and disposition. Disposition/Present on Arrival - Present on Arrival Any Indicators Present on Arrival: No History of DVT/PE: No History of Uncontrolled Diabetes: No Urinary Catheter: No History of Decub. Ulcer: No History Surgical Site Infection Following: None - Disposition Have Diagnosis and Disposition been Completed?: Yes Diagnosis: COPD (chronic obstructive pulmonary disease) Disposition Time: 05:00 Condition: FAIR
[2018-09-20 08:00] LABS: VENOUS BLOOD GAS BASE EXCESS -0.8 mmol/L (0.0-2.0); VENOUS BLOOD GAS PO2 65 mm/Hg (30-55); VENOUS BLOOD PH 7.36 (7.32-7.43)
[2018-09-20] MEDS ORDERED: Albuterol-Ipratrop 3 mg / 0.5 (3 ml) UD IH PRN (08:48)
--- NOTE | 2018-09-20 09:25 | RAD ---
Date of service: 09/20/2018 HISTORY: r/o infiltrate COMPARISON: 05/08/2018 FINDINGS: LUNGS: No active pulmonary disease. PLEURA: No significant pleural effusion identified, no pneumothorax apparent. CARDIOVASCULAR: No aortic atherosclerotic calcification present. Normal cardiac size. No pulmonary vascular congestion. OSSEOUS STRUCTURES: No significant abnormalities. VISUALIZED UPPER ABDOMEN: Normal. OTHER FINDINGS: None. IMPRESSION: No active disease.
[2018-09-20] MEDS ORDERED: Fluticasone-Salmeterol 500-50mcg Diskus INH SCH (10:45)
[2018-09-20 11:53] LABS: VENOUS BLOOD GAS PO2 60 mm/Hg (30-55)
[2018-09-20] MEDS ORDERED: Azithromycin 500MG/NS 250ml 500 MG/250 ML BAG IVPB SCH (12:00)
[2018-09-20] MEDS ORDERED: Albuterol-Ipratrop 3 mg / 0.5 (3 ml) UD IH SCH ×2 (13:15→14:00)
[2018-09-20] MEDS: Albuterol-Ipratrop 3 mg / 0.5 (3 ml) UD IH PRN ×3 (13:25→18:15)
--- NOTE | 2018-09-20 13:34 | CARD ---
APPROVED REPORT Date of service: 09/20/2018 EKG Measurement Heart [id number] <Conclusion> Sinus tachycardia Inferior infarct, age undetermined Abnormal ECG
[2018-09-20] MEDS ORDERED: DiphenhydrAMINE 50 mg/ml Inj IVP STA (13:50)
[2018-09-20] MEDS ORDERED: DiphenhydrAMINE 50 mg/ml Inj ONE (13:57)
[2018-09-20 14:03] LABS: ARTERIAL BLOOD GAS HCO3 20.6 mmol/L (21-28); ARTERIAL BLOOD GAS HEMOGLOBIN 14.9 g/dL (11.7-17.4); ARTERIAL BLOOD GAS O2 CAPACITY 20.3 mL/dl (16-24); ARTERIAL BLOOD GAS O2 CONTENT 19.2 ML/dl (15-23); ARTERIAL BLOOD GAS O2 SAT 94.5 % (95-98); ARTERIAL BLOOD GAS PCO2 41 mm/Hg (35-45); ARTERIAL BLOOD GAS PH 7.31 (7.35-7.45); ARTERIAL BLOOD GAS TCO2 21.9 mmol.L (22-28)
--- NOTE | 2018-09-20 14:19 | RAD ---
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 PLEURA: No significant pleural effusion identified, no pneumothorax apparent. CARDIOVASCULAR: Minimal aortic calcification Normal cardiac size. No pulmonary vascular congestion. OSSEOUS STRUCTURES: No significant abnormalities. VISUALIZED UPPER ABDOMEN: Normal. OTHER FINDINGS: None. IMPRESSION: No active disease.
--- NOTE | 2018-09-20 14:31 | PCM.RRT ---
<Veto Tabares - Last Filed: 09/20/18 14:48> WAX BLEACHER Nurse Assessment - Situation Date: 09/20/18 Time WAX BLEACHER was called: 13:44 WAX BLEACHER Responder Arrival Time: 13:45 WAX BLEACHER Location:: [address] [place] [address] Room Number: [id number] WAX BLEACHER Reason for Call: Tachycardia, Respiratory Distress WAX BLEACHER Called By: RN - IV IV Inserted during WAX BLEACHER?: No - Respiratory Oxygen Delivery Method: Nasal Cannula @L/min Oxygen Flow Rate: 2 Received Nebulizer Treatments:: No Was the Patient Ventilated with Bag/Mask 100% O2?: No Secretions Suctioned?: No Was the Patient Intubated?: No Was the Patient Placed on a Ventilator?: No - Medication Medications Administered During WAX BLEACHER: Benadryl 50mg IVP and Solumedrol 125mg IVP - Diagnostic Test Ordered EKG: Yes Chest X-Ray: Yes CT Scan: No - Stat Labs Ordered WAX BLEACHER Stat Labs Ordered: ABG CPR started during WAX BLEACHER?: No - Vital Signs Vital Sign: Rapid Response Vital Sign Blood Pressure 208/98 Pulse Rate 150 Respiratory Rate 36 Temperature 99.5 F Oxygen Saturation 92 - Finger Stick Blood Glucose Finger Stick Blood Glucose: 122 - Time WAX BLEACHER Ended Time WAX BLEACHER Ended: 14:00 - Vital Signs at end of WAX BLEACHER Vital Signs at end of WAX BLEACHER: Rapid Response End Vital Sign Blood Pressure 144/77 Pulse Rate 146 Respiratory Rate 24 O2 Sat by Pulse Oximetry 96 - Recommendations 5) WAX BLEACHER Level of Care Recommendations: Transfer to ICU Notifications: Attending Physician (Dr. Roper), Consultations (ICU, Dr. Martin ), Family or Designated Caregiver (Spouse, Elaine) I.Reason for WAX BLEACHER - A) Acute Change in Patient: (Select all that apply): Staff member or family is worried about patient, Acute change in heart rate less than 50 or greater than 120, Acute change in respiratory rate less than 8 or greater than 28 - Neurological Status (Select all that apply): Alert, Responsive, Oriented, Verbal, Follows Commands. absent: Disoriented, Confused, Lethargic - Respiratory Oxygen Delivery Method: Nasal Cannula @L/min Oxygen Flow Rate: 2 - Constitutional Appears: Well, Non-toxic, In Acute Distress (respiratory) - Head Head Exam: ATRAUMATIC, NORMAL INSPECTION, NORMOCEPHALIC - Eyes Eye Exam: EOMI, Normal appearance, PERRL - Respiratory Exam Respiratory Exam: Accessory Muscle Use, Rhonchi, Wheezes (diffuse), Respiratory Distress (tachycardia). absent: NORMAL BREATHING PATTERN - Cardiovascular Exam Cardiovascular Exam: Tachycardia, +S1, +S2. absent: JVD, Murmur - GI/Abdominal Exam GI & Abdominal Exam: Soft, Normal Bowel Sounds. absent: Distended, Tenderness - Neurological Exam Neurological Exam: Alert, Awake, Oriented x3 - Extremities Exam Extremities Exam: Normal Inspection Additional comments: skin redness, RUE > LUE Plan - Assessment of Findings&Treatment Plan 73 year old male with a PMH of COPD, gout and HTN who is admitted for asthma exacerbation. WAX BLEACHER was called due to respiratory distress, tachycardia, tachypnea that began shortly after starting infusion of Azithromax. Team responded STAT. Upon arrival, patient noted to be using accessory muscles and tachypnic. Skin was also noted to be red diffusely, mainly over the RUE where the infusion was occuring. The Chart was reviewed, showing that the patient had prior allergic reactions to Levaquin, Penicillins, Vancoymcin, and he was able to state the this was similar to those reactions. Infusion of antibiotics was stopped. Solumedrol 125mg IVP x1 and Benadryl 50mg IVP x1 were given. CXR and EKG were repeated, with no significant changes from ED. BP was also noted to be elevated. Prior CT/PE was also reviewed. There was no hx of CHF, and this seemed unlikely to be CHF exacerbation. ABG was done and showed mild acute hypoxic respiratory acidosis. The patient's BP, RR and HR improved following the medication. Clinically, his breathing improved as well and he was able to speak in full sentences. ICU MD Dr. Martin was contacted and case was explained to him. Patient was accepted to ICU for further monitoring. Dr. Roper's office was contacted and message was left. The patient's Elaine was also contacted and she was told about the situation. The patient was transferred to ICU and case endorsed to ICU team, and he is stable at this time. <Santy Green - Last Filed: 09/22/18 07:46> WAX BLEACHER Nurse Assessment - Vital Signs Vital Sign: Rapid Response Vital Sign Blood Pressure 208/98 Pulse Rate 150 Respiratory Rate 36 Temperature 99.5 F Oxygen Saturation 92 - Vital Signs at end of WAX BLEACHER Vital Signs at end of WAX BLEACHER: Rapid Response End Vital Sign Blood Pressure 144/77 Pulse Rate 146 Respiratory Rate 24 O2 Sat by Pulse Oximetry 96 Attending/Attestation - Attestation I have personally seen and examined this patient.: Yes I have fully participated in the care of the patient.: Yes I have reviewed all pertinent clinical information, including history, physical exam and plan: Yes Notes (Text): 09/22/18 07:44 Attending note; Patient seen and examined with resident during WAX BLEACHER. Patient is alert and awake. Patient has significant wheezing. Patient was treated with DuoNeb. Patient had transient tachycardia and hypertension related to respiratory distress. EKG showed tachycardia. ABG showed mild hypoxemia. Started dose of Benadryl and solumedrol given for possible allergic reaction to azithromycin versus acute bronchospasm. Patient will be transferred to ICU. Case discussed with rn faculty. Case discussed with PMD and family by resident. further treatment plan per PMD Dr. Roper.
[2018-09-20 14:32] LABS: GRAN # 8.83 (1.4-6.5); GRAN % 97.3 % (50.0-68.0); HEMOGLOBIN 14.2 g/dL (14.0-18.0); LYMPH # 0.2 (1.2-3.4); LYMPH % 2.5 % (22.0-35.0); MEAN CELL VOLUME 94.6 fl (80.0-105.0); MEAN CORPUSCULAR HEMOGLOBIN 30.9 pg (25.0-35.0); MEAN CORPUSCULAR HGB CONC 32.7 g/dl (31.0-37.0); MEAN PLATELET VOLUME 9.4 fl (7.0-11.0); MONO % 0.2 % (1.0-6.0); PLATELET COUNT 197 10^3/uL (120.0-450.0); RBC 4.59 10^6/uL (3.5-6.1); RED CELL DISTRIBUTION WIDTH 12.6 % (11.5-14.5); WHITE BLOOD COUNT 9.1 10^3/uL (4.5-11.0)
[2018-09-20 14:42] LABS: ALB/GLOB RATIO 1.3 (1.1-1.8); ALBUMIN 4.2 g/dL (3.0-4.8); ALT/SGPT 32 U/L (7-56); AST/SGOT 31 U/L (17-59); BLOOD UREA NITROGEN 26 mg/dL (7-21); CALCIUM 9.1 mg/dL (8.4-10.5); GFR NON-AFRICAN AMERICAN 54
[2018-09-20] MEDS: Sodium Chloride 0.9% 1,000 ML IV SCH ×2 (14:45→20:42)
[2018-09-20 14:51] LABS: TROPONIN I 0.02 ng/mL
[2018-09-20 15:04] LABS: LYMPHOCYTE 4 % (22.0-35.0); NEUTROPHIL 96 % (50.0-70.0); PLATELET ESTIMATE NORMAL (NORMAL)
--- NOTE | 2018-09-20 19:15 | CARD ---
APPROVED REPORT Date of service: 09/20/2018 EKG Measurement Heart [id number] [id number] <Conclusion> Sinus tachycardia Otherwise normal ECG
[2018-09-20] MEDS: Budesonide 0.5 mg/2 ml Inhal Susp UD IH SCH (19:34)
[2018-09-20] MEDS: Arformoterol 15 mcg/2 ml Inh Sol IH SCH (19:35)
[2018-09-20] MEDS: DiphenhydrAMINE 50 mg/ml Inj IVP SCH (22:12)
--- NOTE | 2018-09-21 00:05 | CON ---
DATE: 09/20/2018 HISTORY OF PRESENT ILLNESS: This is 73-year-old gentleman with longstanding systemic corticosteroid-dependent asthma, who presented this time for increased shortness of breath, some nonproductive cough for about 1 day duration. He did have those symptoms in the past many times and those symptoms heralded development of asthma exacerbation. The patient recently moved out from [place] to [place] and no past medical records available at the present time. The patient was treated with magnesium sulfate, bronchodilators, and systemic steroids taper in emergency room and was initially admitted to telemetry for further management and monitoring. The patient was receiving azithromycin on the tele floor, which was not listed as one of the medication that the patient is allergic to; however, at the site of infusion, the patient developed a morbilliform rash, highly suspicious for drug reaction, severe shortness of breath, audible wheezing. The infusion of azithromycin was held. The patient received systemic steroids, bronchodilators (DuoNeb), and was transferred to ICU for further management and monitoring of this potentially allergic reaction to azithromycin. No nausea. No vomiting. No diarrhea. No constipation. No fever. No chills. No sweats. PAST MEDICAL HISTORY: Hypertension, COPD/asthma, gout/gouty arthritis (I spoke with Dr. Roper, his PMD, who mentioned that the patient has chronic gout, but not exacerbation, thus allopurinol and colchicine were held in light of acute kidney injury). SOCIAL HISTORY: The patient is ex-smoker. No alcohol or illicit drug abuse. FAMILY HISTORY: Noncontributory. ALLERGIES: LEVOFLOXACIN, PENICILLIN, VANCOMYCIN. HOME MEDICATIONS: DuoNeb, colchicine, losartan, Advair, and prednisone 10 mg p.o. daily. REVIEW OF SYSTEMS: Review of 12-organ system other than mentioned in history of present illness is negative. PHYSICAL EXAMINATION: VITAL SIGNS: Heart rate 140, oxygen saturation 96% on 3 liters nasal cannula, respiratory rate went down from 40 to 25, blood pressure 127/63. ENT: Head and neck atraumatic. LUNGS: Diffuse scattered wheezes bilaterally. No audible wheezes though. No rhonchi. No crackles. HEART: Regular rate and rhythm, tachy, S1, S2 normal/okay. ABDOMEN: Soft, nontender, and nondistended. MUSCULOSKELETAL: Trace bilateral pedal and ankle edema. NEURO: The patient moves all extremities spontaneously. SKIN: Moist. There is morbilliform rash on the right upper extremities at the site of azithromycin effusion. PSYCH: The patient is alert, awake, and oriented, in mild respiratory distress, subjectively much improved since transfer to ICU from the floor. LABORATORY DATA: Sodium 143, potassium 4.7, chloride 107, carbon dioxide 25, BUN 26, creatinine 1.3, albumin 0.8, glucose 121, AST 37, ALT 31, total bilirubin 0.4. ProBNP 259. ABG is 7.31, pCO2 41, pO2 64. Lactic acid 2.6 as of 11:45 a.m. Chest x-ray, no active pulmonary disease. EKG showed sinus tachycardia. MEDICATIONS IN THE HOSPITAL: DuoNeb every 4 hours and every 2 hours p.r.n., allopurinol and colchicine were stopped, Brovana, budesonide, Benadryl was given on the floor and 50 mg IV every 8 hours started at 10 p.m. today, Pepcid 20 mg IV daily with first dose stop. Cozaar was held. Solu-Medrol 125 mg was given on the floor and 60 mg IV every 8 hours was started . Normal saline 150 mL/hour was also started. ASSESSMENT AND PLAN: This is a 73-year-old gentleman who presented with severe bronchospasm, which appears to be allergic in origin after azithromycin infusion. At the present time, we will proceed with continuous duoneb nebs, steroids and H2- and H1 blockade. We will repeat all labs, and if continuous nebulizer would not help and magnesium level is not elevated, we will consider IV magnesium as well. The patient will be on heliox 80/20 (70/30 not available). We will see if the patient tolerates that O2 concentration. We will continue with steroid taper. I will start the patient on Pepcid with the dose adjusted for renal function. As was mentioned above, allopurinol, colchicine, and Cozaar were stopped. I will start the patient on intravenous fluids to thin bronchial secretion a little bit and prevent hypovolemia. We will try to avoid intubation as much as possible. If the patient, wont improved with all above measures, a short trial of bilevel positive airway pressure with subsequent low threshold for intubation will be considered. We will continue with deep venous thrombosis and gastrointestinal prophylaxis. We will continue to maintain euvolemia, euglycemia, normothermia, and oxygen saturation more than 90%. We will continue with Benadryl 50 mg intravenous every 8 hours. ccm time 40 min Tomas Martin MD MTDKelli
[2018-09-21] MEDS: Albuterol-Ipratrop 3 mg / 0.5 (3 ml) UD IH SCH (03:15)
--- NOTE | 2018-09-21 04:28 | CON ---
DATE: 09/20/2018 REFERRING PHYSICIAN: Mary Roper MD REASON FOR CONSULTATION: Chronic obstructive lung disease, may have sleep apnea syndrome. HISTORY OF PRESENT ILLNESS: This is a 73-year-old gentleman well known to me from previous admission, last time seen was a couple of months ago, noncompliant with followup, supposed to get PFT and sleep study upon outpatient but never followed up on it, admitted with cough, shortness of breath, tachypnea, tachycardia, received IV steroids, inhaled bronchodilator, admitted to telemetry. Rapid Response was called because of tachypnea and tachycardia. Heart rate was up to 150-160. Presently in intensive care unit, being treated with supplemental helium, feels better, still has diffuse wheezing though. No nausea, no vomiting, no diarrhea. Has multiple joint involvement with gout. He is steroids dependent. PAST MEDICAL HISTORY: Significant for chronic obstructive lung disease, gouty arthritis, suspected sleep apnea syndrome. FAMILY HISTORY: No significant cardiopulmonary disease reported. SOCIAL HISTORY: Former smoker. Denies any alcohol use. ALLERGIES: HE IS ALLERGIC TO LEVAQUIN, PENICILLIN, VANCOMYCIN, AND PROBABLY NOW ALLERGIC TO ZITHROMAX. MEDICATIONS: He is on Atrovent inhaled every 6 hours p.r.n.; Benadryl 50 mg every 8 hours; Brovana inhaled twice a day; Cozaar 50 mg daily; DuoNeb every 2 hours p.r.n., every 4 hours [id number]; Pepcid 20 mg daily; Pulmicort inhaled twice a day; IV fluid normal saline 50 mL/hour; Solu-Medrol 60 mg every 8 hours; allopurinol 300 mg daily. REVIEW OF SYSTEMS: No headache, no rhinitis. Has a cough, shortness of breath. Chest pain is not there. No nausea, no vomiting, no diarrhea, no leg pain and no leg swelling. Has multiple joint deformities and tenderness. PHYSICAL EXAMINATION GENERAL: Gtfq-vj-cstwjdgo distress. VITAL SIGNS: Afebrile, heart rate is 130-140, blood pressure 126/62, pulse ox 94% on inhaled helium. HEENT: Moist mucous membranes. Crowded airway. Mallampati score is 4. NECK: Supple. No JVD. LUNGS: Have diffuse expiratory wheezing. HEART: S1 and S2. ABDOMEN: Soft, nontender, no organomegaly. EXTREMITIES: There is no edema. NEUROLOGIC: Awake, alert, follows simple commands. Has multiple joint involvement with gout. LABORATORY DATA: Shows hemoglobin 14.2, hematocrit 43.4, WBC 9.1, platelet count is 197. Blood gases show pH 7.31, pCO2 of 41, O2 is 64, this is on helium with nasal cannula. Sodium 140, potassium 5.1, chloride 110, bicarbonate is 22, BUN 26, creatinine 1.3, glucose 144, calcium is 9.1, phosphorus is 3.3, magnesium 2.4, AST 31, ALT 32, alk phos is 74. Troponin 0.02. Albumin is 4.2. Influenza A and B is negative. Had a chest x-ray done in ER which shows no active infiltrate or effusion. Had echocardiogram done, shows sinus tachycardia. Had a CAT scan done in 04/[address] angio at that time. IMPRESSION AND PLAN: Chronic obstructive lung disease; history of gastroesophageal reflux disease; gouty arthritis, steroids dependent; may have a sleep apnea syndrome. Case discussed with the nursing staff, also spoke to head holder Dr. Martin, agree with the present treatment. Continue high dose of steroids, antibiotics. May place on doxycycline. Continue allopurinol and colchicine. Gastric prophylaxis. DVT prophylaxis. Sleep apnea precautions. If in extended desaturation or upper airway obstruction, may use BiPAP / with helium with oxygen. Follow up labs the morning. Thank you and we will follow with you. Morgan Coughlin MD
[2018-09-21] MEDS: DiphenhydrAMINE 50 mg/ml Inj IVP SCH ×2 (05:23→13:36)
[2018-09-21] MEDS ORDERED: Levalbuterol 1.25 MG/3 ML Inhal Soln UD IH STA (05:26)
[2018-09-21] MEDS ORDERED: Levalbuterol 0.63 MG/3 ML Inhal Soln UD IH PRN ×2 (05:26→05:30)
[2018-09-21] MEDS: Sodium Chloride 0.9% 1,000 ML IV SCH ×2 (05:28→10:30)
[2018-09-21] MEDS ORDERED: Sod Polystyrene Sulf 15 gm/60 ml Susp PO STA (05:33)
[2018-09-21 05:58] LABS: ARTERIAL BLOOD GAS HCO3 22.5 mmol/L (21-28); ARTERIAL BLOOD GAS HEMOGLOBIN 14.9 g/dL (11.7-17.4); ARTERIAL BLOOD GAS O2 CAPACITY 20.5 mL/dl (16-24); ARTERIAL BLOOD GAS O2 CONTENT 20.5 ML/dl (15-23); ARTERIAL BLOOD GAS O2 SAT 99.9 % (95-98); ARTERIAL BLOOD GAS PCO2 49 mm/Hg (35-45); ARTERIAL BLOOD GAS PH 7.27 (7.35-7.45)
[2018-09-21 06:01] LABS: HEMOGLOBIN 13.6 g/dL (14.0-18.0); MEAN CELL VOLUME 96.2 fl (80.0-105.0); MEAN CORPUSCULAR HEMOGLOBIN 30.4 pg (25.0-35.0); MEAN CORPUSCULAR HGB CONC 31.6 g/dl (31.0-37.0); MEAN PLATELET VOLUME 9.7 fl (7.0-11.0); RBC 4.47 10^6/uL (3.5-6.1); RED CELL DISTRIBUTION WIDTH 12.9 % (11.5-14.5); WHITE BLOOD COUNT 16.1 10^3/uL (4.5-11.0)
[2018-09-21 06:28] LABS: ALB/GLOB RATIO 1.3 (1.1-1.8); CALCIUM 8.7 mg/dL (8.4-10.5)
--- NOTE | 2018-09-21 06:56 | CP.CCUPN ---
<Sidney Vance - Last Filed: 09/21/18 15:26> CCU Subjective - Physician Review Subjective (Free Text): Sidney Vance DO, PGY1. ICU progress note for Dr Holland Patient seen and examined at bedside. She is AAOx3, in no acute distress. He denies any complaints. Overnight, he was in respiratory distress, duoneb changed to xopenex and patient placed on BiPAP, doing better now. He denied chest pain, fever, headache, palpitations 09/21/18 15:41 CCU Objective - Vital Signs / Intake & Output Vital Signs (Last 4 hours): Vital Signs Pulse Resp BP Pulse Ox 09/21/18 06:50 140 H 175/93 H 09/21/18 06:30 140 H 31 H 95 09/21/18 06:20 139 H 29 H 166/85 H 96 09/21/18 06:10 143 H 34 H 97 09/21/18 06:09 139 H 30 H 163/89 H 96 09/21/18 06:08 140 H 171/88 H 09/21/18 06:00 145 H 37 H 91 L 09/21/18 05:59 146 H 42 H 188/97 H 91 L 09/21/18 05:50 149 H 33 H 93 L 09/21/18 05:40 143 H 28 H 171/88 H 96 09/21/18 05:30 141 H 35 H 94 L 09/21/18 05:22 140 H 46 H 164/106 H 97 09/21/18 05:20 140 H 34 H 171/108 H 96 09/21/18 05:10 139 H 27 H 97 09/21/18 05:00 135 H 26 H 155/88 H 97 09/21/18 04:50 138 H 25 H 97 09/21/18 04:40 136 H 27 H 164/100 H 97 09/21/18 04:30 133 H 26 H 97 09/21/18 04:20 134 H 26 H 149/82 97 09/21/18 04:10 138 H 26 H 97 09/21/18 04:00 136 H 26 H 152/87 H 96 09/21/18 03:50 142 H 40 H 92 L 09/21/18 03:40 131 H 30 H 140/75 95 09/21/18 03:30 131 H 37 H 95 09/21/18 03:20 127 H 29 H 141/81 96 09/21/18 03:10 126 H 32 H 97 09/21/18 03:00 125 H 29 H 136/76 97 Intake and Output (Last 8hrs): Intake & Output 09/20/18 09/20/18 09/21/18 14:59 22:59 06:59 Intake Total 600 Balance 600 Weight 135 lb 1.6 oz Intake: IV 600 Right Antecubital 600 Other: # Voids Urine, Voided 0 # Bowel Movements 0 - Physical Exam Head: Positive for: Atraumatic, Normocephalic Pupils: Positive for: PERRL Extroacular Muscles: Positive for: EOMI Conjunctiva: Positive for: Normal Mouth: Positive for: Moist Mucous Membranes Neck: Positive for: Normal Range of Motion Respiratory/Chest: Positive for: Wheezes (improving wheezes b/l) Cardiovascular: Positive for: Regular Rate and Rhythm, Normal S1, S2. Negative for: Murmurs Abdomen: Negative for: Tenderness, Distention, Peritoneal Signs Back: Positive for: Normal Inspection Upper Extremity: Positive for: Normal Inspection. Negative for: Cyanosis, Edema Lower Extremity: Positive for: Normal Inspection. Negative for: Edema Neurological: Positive for: GCS=15, CN II-XII Intact, Speech Normal Skin: Positive for: Warm, Dry, Normal Color. Negative for: Rashes Psychiatric: Positive for: Alert, Oriented x 3, Normal Insight, Normal Concentration - Medications Active Medications: Active Medications Generic Name Dose Route Start Last Admin Trade Name Freq PRN Reason Stop Dose Admin Allopurinol 300 mg 09/20/18 11:00 09/20/18 12:23 Zyloprim PO 300 mg DAILY BLANK Administration Arformoterol Tartrate 15 mcg 09/20/18 20:00 09/20/18 19:35 Brovana IH 15 mcg [id number] BLANK Administration Budesonide 1 mg 09/20/18 20:00 09/20/18 19:34 Pulmicort Respules IH 1 mg [id number] BLANK Administration Diphenhydramine HCl 50 mg 09/20/18 22:00 09/21/18 05:23 Benadryl IVP 09/21/18 14:01 50 mg Q8H BLANK Administration Doxycycline Hyclate 100 mg 09/20/18 22:00 09/20/18 22:13 Doryx PO 100 mg Q12 BLANK Administration Protocol Famotidine 20 mg 09/20/18 14:30 09/20/18 14:36 Pepcid IVP 20 mg DAILY BLANK Administration Sodium Chloride 1,000 mls @ 150 mls/hr 09/20/18 14:30 09/21/18 05:28 Sodium Chloride 0.9% IV 150 mls/hr [id number] BLANK Administration Ipratropium [place] 0.5 mg 09/20/18 13:58 Atrovent IH [id number] PRN Shortness of Breath Levalbuterol HCl 0.63 mg 09/21/18 08:00 Xopenex IH [id number] BLANK Levalbuterol HCl 0.63 mg 09/21/18 05:30 Xopenex IH Q2H PRN sob/wheezing Losartan Potassium 50 mg 09/20/18 10:45 09/20/18 12:21 Cozaar PO 50 mg DAILY BLANK Administration Methylprednisolone 60 mg 09/20/18 14:00 09/21/18 05:24 Solu-Medrol IVP 60 mg Q8 BLANK Administration Montelukast Sodium 10 mg 09/20/18 22:15 09/20/18 22:23 Singulair PO 10 mg HS BLANK Administration - Patient Studies Lab Studies: Microbiology Studies 09/20/18 03:30 Blood Culture - Preliminary Blood-Venous NO GROWTH AFTER 24 HOURS 09/20/18 03:12 Blood Culture - Preliminary Blood-Venous NO GROWTH AFTER 24 HOURS Lab Studies 09/21/18 09/21/18 09/21/18 Range/Units 05:30 05:15 05:15 WBC 16.1 H D (4.5-11.0) 10^3/uL RBC 4.47 (3.5-6.1) 10^6/uL Hgb 13.6 L (14.0-18.0) g/dL Hct 43.0 (42.0-52.0) % MCV 96.2 (80.0-105.0) fl MCH 30.4 (25.0-35.0) pg MCHC 31.6 (31.0-37.0) g/dl RDW 12.9 (11.5-14.5) % Plt Count 202 (120.0-450.0) 10^3/uL MPV 9.7 (7.0-11.0) fl Gran % (50.0-68.0) % Lymph % (Auto) (22.0-35.0) % [place] % (Auto) (1.0-6.0) % Eos % (Auto) (1.5-5.0) % Baso % (Auto) (0.0-3.0) % Gran # (1.4-6.5) Lymph # (Auto) (1.2-3.4) [place] # (Auto) (0.1-0.6) Eos # (Auto) (0.0-0.7) Baso # (Auto) (0.0-2.0) K/mm3 Neutrophils % (Manual) (50.0-70.0) % Lymphocytes % (Manual) (22.0-35.0) % Monocytes % (Manual) Platelet Evaluation (NORMAL) pCO2 49 H (35-45) mm/Hg pO2 124.0 H (30-55) mm/Hg HCO3 22.5 (21-28) mmol/L ABG pH 7.27 L (7.35-7.45) ABG Total CO2 24.0 (22-28) mmol.L ABG O2 Saturation 99.9 H (95-98) % ABG O2 Content 20.5 (15-23) ML/dl ABG Base Excess -4.8 L (-2.0-3.0) mmol/L ABG Hemoglobin 14.9 (11.7-17.4) g/dL ABG Carboxyhemoglobin 2.0 H (0.5-1.5) % POC ABG HHb (Measured) 0.1 (0-5) % ABG Methemoglobin 0.9 (0.0-3.0) % ABG O2 Capacity 20.5 (16-24) mL/dl VBG pH (7.32-7.43) VBG pCO2 (40-60) VBG HCO3 (21-28) mmol/l VBG Total CO2 (22-28) mmol.L VBG O2 Sat (Calc) (40-65) % VBG Base Excess (0.0-2.0) mmol/L VBG Potassium (3.6-5.2) mmol/L Hgb O2 Saturation 97.0 (95.0-98.0) % Sodium 143 (132-148) mmol/L Chloride 114 H (98-107) mmol/L Glucose (75-110) mg/dl Lactate (0.7-2.1) mmol/L FiO2 40.0 % Potassium 5.0 (3.6-5.0) mmol/L Carbon Dioxide 23 (21-33) mmol/L Anion Gap 12 (10-20) BUN 33 H (7-21) mg/dL Creatinine 1.5 (0.8-1.5) mg/dl Est GFR ( Amer) 56 Est GFR (Non-Af Amer) 46 Random Glucose 133 H (70-110) mg/dL Calcium 8.7 (8.4-10.5) mg/dL Phosphorus (2.5-4.5) mg/dL Magnesium (1.7-2.2) mg/dL Total Bilirubin 0.4 (0.2-1.3) mg/dL AST 33 (17-59) U/L ALT 35 (7-56) U/L Alkaline Phosphatase 63 (38-126) U/L Troponin I ng/mL Total Protein 7.1 (5.8-8.3) g/dL Albumin 4.0 (3.0-4.8) g/dL Globulin 3.1 gm/dL Albumin/Globulin Ratio 1.3 (1.1-1.8) Venous Blood Potassium (3.6-5.2) mmol/L 09/20/18 09/20/18 09/20/18 Range/Units 14:27 14:27 14:00 WBC 9.1 D (4.5-11.0) 10^3/uL RBC 4.59 (3.5-6.1) 10^6/uL Hgb 14.2 (14.0-18.0) g/dL Hct 43.4 (42.0-52.0) % MCV 94.6 (80.0-105.0) fl MCH 30.9 (25.0-35.0) pg MCHC 32.7 (31.0-37.0) g/dl RDW 12.6 (11.5-14.5) % Plt Count 197 (120.0-450.0) 10^3/uL MPV 9.4 (7.0-11.0) fl Gran % 97.3 H (50.0-68.0) % Lymph % (Auto) 2.5 L (22.0-35.0) % Crowley % (Auto) 0.2 L (1.0-6.0) % Eos % (Auto) 0.0 L (1.5-5.0) % Baso % (Auto) 0.0 (0.0-3.0) % Gran # 8.83 H (1.4-6.5) Lymph # (Auto) 0.2 L (1.2-3.4) [place] # (Auto) 0.0 L (0.1-0.6) Eos # (Auto) 0.0 (0.0-0.7) Baso # (Auto) 0.00 (0.0-2.0) K/mm3 Neutrophils % (Manual) 96 H (50.0-70.0) % Lymphocytes % (Manual) 4 L (22.0-35.0) % Monocytes % (Manual) TEST NOT PERFORMED Platelet Evaluation Normal (NORMAL) pCO2 41 (35-45) mm/Hg pO2 64.0 L (30-55) mm/Hg HCO3 20.6 L (21-28) mmol/L ABG pH 7.31 L (7.35-7.45) ABG Total CO2 21.9 L (22-28) mmol.L ABG O2 Saturation 94.5 L (95-98) % ABG O2 Content 19.2 (15-23) ML/dl ABG Base Excess -5.4 L (-2.0-3.0) mmol/L ABG Hemoglobin 14.9 (11.7-17.4) g/dL ABG Carboxyhemoglobin 1.7 H (0.5-1.5) % POC ABG HHb (Measured) 5.3 H (0-5) % ABG Methemoglobin 1.1 (0.0-3.0) % ABG O2 Capacity 20.3 (16-24) mL/dl VBG pH (7.32-7.43) VBG pCO2 (40-60) VBG HCO3 (21-28) mmol/l VBG Total CO2 (22-28) mmol.L VBG O2 Sat (Calc) (40-65) % VBG Base Excess (0.0-2.0) mmol/L VBG Potassium (3.6-5.2) mmol/L Hgb O2 Saturation 91.9 L (95.0-98.0) % Sodium 140 (132-148) mmol/L Chloride 110 H (98-107) mmol/L Glucose (75-110) mg/dl Lactate (0.7-2.1) mmol/L FiO2 32.0 % Potassium 5.1 H (3.6-5.0) mmol/L Carbon Dioxide 22 (21-33) mmol/L Anion Gap 14 (10-20) BUN 26 H (7-21) mg/dL Creatinine 1.3 (0.8-1.5) mg/dl Est GFR ( Amer) > 60 Est GFR (Non-Af Amer) 54 Random Glucose 144 H (70-110) mg/dL Calcium 9.1 (8.4-10.5) mg/dL Phosphorus 3.3 (2.5-4.5) mg/dL Magnesium 2.4 H (1.7-2.2) mg/dL Total Bilirubin 0.5 (0.2-1.3) mg/dL AST 31 (17-59) U/L ALT 32 (7-56) U/L Alkaline Phosphatase 74 (38-126) U/L Troponin I 0.02 D ng/mL Total Protein 7.5 (5.8-8.3) g/dL Albumin 4.2 (3.0-4.8) g/dL Globulin 3.3 gm/dL Albumin/Globulin Ratio 1.3 (1.1-1.8) Venous Blood Potassium (3.6-5.2) mmol/L 09/20/18 09/20/18 Range/Units 11:45 07:50 WBC (4.5-11.0) 10^3/uL RBC (3.5-6.1) 10^6/uL Hgb (14.0-18.0) g/dL Hct (42.0-52.0) % MCV (80.0-105.0) fl MCH (25.0-35.0) pg MCHC (31.0-37.0) g/dl RDW (11.5-14.5) % Plt Count (120.0-450.0) 10^3/uL MPV (7.0-11.0) fl Gran % (50.0-68.0) % Lymph % (Auto) (22.0-35.0) % [place] % (Auto) (1.0-6.0) % Eos % (Auto) (1.5-5.0) % Baso % (Auto) (0.0-3.0) % Gran # (1.4-6.5) Lymph # (Auto) (1.2-3.4) [place] # (Auto) (0.1-0.6) Eos # (Auto) (0.0-0.7) Baso # (Auto) (0.0-2.0) K/mm3 Neutrophils % (Manual) (50.0-70.0) % Lymphocytes % (Manual) (22.0-35.0) % Monocytes % (Manual) Platelet Evaluation (NORMAL) pCO2 (35-45) mm/Hg pO2 60 H 65 H (30-55) mm/Hg HCO3 (21-28) mmol/L ABG pH (7.35-7.45) ABG Total CO2 (22-28) mmol.L ABG O2 Saturation (95-98) % ABG O2 Content (15-23) ML/dl ABG Base Excess (-2.0-3.0) mmol/L ABG Hemoglobin (11.7-17.4) g/dL ABG Carboxyhemoglobin (0.5-1.5) % POC ABG HHb (Measured) (0-5) % ABG Methemoglobin (0.0-3.0) % ABG O2 Capacity (16-24) mL/dl VBG pH 7.40 7.36 (7.32-7.43) VBG pCO2 40.0 44.0 (40-60) VBG HCO3 24.8 24.9 (21-28) mmol/l VBG Total CO2 26.0 26.3 (22-28) mmol.L VBG O2 Sat (Calc) 94.6 H 95.4 H (40-65) % VBG Base Excess 0.0 -0.8 L (0.0-2.0) mmol/L VBG Potassium 5.1 4.7 (3.6-5.2) mmol/L Hgb O2 Saturation (95.0-98.0) % Sodium 139.0 140.0 (132-148) mmol/L Chloride 106.0 106.0 (98-107) mmol/L Glucose 177 H 153 H (75-110) mg/dl Lactate 2.6 H 2.4 H (0.7-2.1) mmol/L FiO2 21.0 21.0 % Potassium (3.6-5.0) mmol/L Carbon Dioxide (21-33) mmol/L Anion Gap (10-20) BUN (7-21) mg/dL Creatinine (0.8-1.5) mg/dl Est GFR ( Amer) Est GFR (Non-Af Amer) Random Glucose (70-110) mg/dL Calcium (8.4-10.5) mg/dL Phosphorus (2.5-4.5) mg/dL Magnesium (1.7-2.2) mg/dL Total Bilirubin (0.2-1.3) mg/dL AST (17-59) U/L ALT (7-56) U/L Alkaline Phosphatase (38-126) U/L Troponin I ng/mL Total Protein (5.8-8.3) g/dL Albumin (3.0-4.8) g/dL Globulin gm/dL Albumin/Globulin Ratio (1.1-1.8) Venous Blood Potassium 5.1 4.7 (3.6-5.2) mmol/L Laboratory Results - last 24 hr 09/20/18 09/20/18 09/20/18 07:50 11:45 14:00 WBC RBC Hgb Hct MCV MCH MCHC RDW Plt Count MPV Gran % Lymph % (Auto) [place] % (Auto) Eos % (Auto) Baso % (Auto) Gran # Lymph # (Auto) [place] # (Auto) Eos # (Auto) Baso # (Auto) Neutrophils % (Manual) Lymphocytes % (Manual) Monocytes % (Manual) Platelet Evaluation pCO2 41 pO2 65 H 60 H 64.0 L HCO3 20.6 L ABG pH 7.31 L ABG Total CO2 21.9 L ABG O2 Saturation 94.5 L ABG O2 Content 19.2 ABG Base Excess -5.4 L ABG Hemoglobin 14.9 ABG Carboxyhemoglobin 1.7 H POC ABG HHb (Measured) 5.3 H ABG Methemoglobin 1.1 ABG O2 Capacity 20.3 VBG pH 7.36 7.40 VBG pCO2 44.0 40.0 VBG HCO3 24.9 24.8 VBG Total CO2 26.3 26.0 VBG O2 Sat (Calc) 95.4 H 94.6 H VBG Base Excess -0.8 L 0.0 VBG Potassium 4.7 5.1 Hgb O2 Saturation 91.9 L Sodium 140.0 139.0 Chloride 106.0 106.0 Glucose 153 H 177 H Lactate 2.4 H 2.6 H FiO2 21.0 21.0 32.0 Potassium Carbon Dioxide Anion Gap BUN Creatinine Est GFR ( Amer) Est GFR (Non-Af Amer) Random Glucose Calcium Phosphorus Magnesium Total Bilirubin AST ALT Alkaline Phosphatase Troponin I Total Protein Albumin Globulin Albumin/Globulin Ratio Venous Blood Potassium 4.7 5.1 09/20/18 09/20/18 09/21/18 14:27 14:27 05:15 WBC 9.1 D 16.1 H D RBC 4.59 4.47 Hgb 14.2 13.6 L Hct 43.4 43.0 MCV 94.6 96.2 MCH 30.9 30.4 MCHC 32.7 31.6 RDW 12.6 12.9 Plt Count 197 202 MPV 9.4 9.7 Gran % 97.3 H Lymph % (Auto) 2.5 L [place] % (Auto) 0.2 L Eos % (Auto) 0.0 L Baso % (Auto) 0.0 Gran # 8.83 H Lymph # (Auto) 0.2 L [place] # (Auto) 0.0 L Eos # (Auto) 0.0 Baso # (Auto) 0.00 Neutrophils % (Manual) 96 H Lymphocytes % (Manual) 4 L Monocytes % (Manual) TEST NOT PERFORMED Platelet Evaluation Normal pCO2 pO2 HCO3 ABG pH ABG Total CO2 ABG O2 Saturation ABG O2 Content ABG Base Excess ABG Hemoglobin ABG Carboxyhemoglobin POC ABG HHb (Measured) ABG Methemoglobin ABG O2 Capacity VBG pH VBG pCO2 VBG HCO3 VBG Total CO2 VBG O2 Sat (Calc) VBG Base Excess VBG Potassium Hgb O2 Saturation Sodium 140 Chloride 110 H Glucose Lactate FiO2 Potassium 5.1 H Carbon Dioxide 22 Anion Gap 14 BUN 26 H Creatinine 1.3 Est GFR ( Amer) > 60 Est GFR (Non-Af Amer) 54 Random Glucose 144 H Calcium 9.1 Phosphorus 3.3 Magnesium 2.4 H Total Bilirubin 0.5 AST 31 ALT 32 Alkaline Phosphatase 74 Troponin I 0.02 D Total Protein 7.5 Albumin 4.2 Globulin 3.3 Albumin/Globulin Ratio 1.3 Venous Blood Potassium 09/21/18 09/21/18 05:15 05:30 WBC RBC Hgb Hct MCV MCH MCHC RDW Plt Count MPV Gran % Lymph % (Auto) [place] % (Auto) Eos % (Auto) Baso % (Auto) Gran # Lymph # (Auto) [place] # (Auto) Eos # (Auto) Baso # (Auto) Neutrophils % (Manual) Lymphocytes % (Manual) Monocytes % (Manual) Platelet Evaluation pCO2 49 H pO2 124.0 H HCO3 22.5 ABG pH 7.27 L ABG Total CO2 24.0 ABG O2 Saturation 99.9 H ABG O2 Content 20.5 ABG Base Excess -4.8 L ABG Hemoglobin 14.9 ABG Carboxyhemoglobin 2.0 H POC ABG HHb (Measured) 0.1 ABG Methemoglobin 0.9 ABG O2 Capacity 20.5 VBG pH VBG pCO2 VBG HCO3 VBG Total CO2 VBG O2 Sat (Calc) VBG Base Excess VBG Potassium Hgb O2 Saturation 97.0 Sodium 143 Chloride 114 H Glucose Lactate FiO2 40.0 Potassium 5.0 Carbon Dioxide 23 Anion Gap 12 BUN 33 H Creatinine 1.5 Est GFR ( Amer) 56 Est GFR (Non-Af Amer) 46 Random Glucose 133 H Calcium 8.7 Phosphorus Magnesium Total Bilirubin 0.4 AST 33 ALT 35 Alkaline Phosphatase 63 Troponin I Total Protein 7.1 Albumin 4.0 Globulin 3.1 Albumin/Globulin Ratio 1.3 Venous Blood Potassium EKG/Cardiology Studies: Cardiology / EKG Studies 09/20/18 14:01 EKG [ELECTROCARDIOGRAM] Stat Comment: has already been collected Reason For Exam: tachycardia, rapid response Critical Care Progress Note - Nutrition Nutrition: Nutrition Category Date Time Status Heart Healthy Diet [DIET] Diets 09/20/18 Breakfast Active Assessment/Plan - Assessment and Plan (Free Text) Assessment: 73 y/o male with PMH of COPD, asthma admitted to ICU for management of asthma exacerbation complicated with allergic reaction likely due to zithromax administration. Clinically improving Plan: Neuro: -AAOx3. in NAD -maintain normothermia CVS: -sinus tachycardia -h/o HTN, hold coozar -BP monitor -trop negative x2 Resp: -COPD exacerbation with possible allergic reaction to zithromax, SOB but no angioedema -AB.27/49/124/22.5 -continue brovana, budesonide, xopenex, doxycycline -continue solu-medrol 60mg q8 -continue BiPAP 10/6 12 40% -continue Heliox 80/20 -continue benadryl 50mg iv -CXR: no acute infiltrate -hold duoneb due to tachycardia -maintain O2 sat >90% -pulmonology following, Dr Coughlin Renal: -continue NS -maintain euvolemia -I&O 2500/415 in last 24 hour GI: -continue pepcid MSK: -h/o gouty arthritis -hold colchicine, allopurinol Prophylaxis: - GI ppx: Pepcid - DVT ppx: SCD Heart healthy diet Dispo: Continue Bipap, steroid, bronchodilator, abx Case reviewed and plan discussed with Dr. Veronica Vance, DO PGY1 <Tomas Martin - Last Filed: 09/21/18 18:58> CCU Objective - Vital Signs / Intake & Output Vital Signs (Last 4 hours): Vital Signs Temp Pulse Resp BP Pulse Ox 09/21/18 16:35 120 H 09/21/18 16:00 98.2 F 113 H 23 150/80 97 09/21/18 14:50 116 H 30 H 96 09/21/18 14:40 117 H 37 H 96 09/21/18 14:30 118 H 29 H 96 09/21/18 14:20 118 H 29 H 97 09/21/18 14:10 119 H 38 H 97 09/21/18 14:00 120 H 32 H 140/79 96 09/21/18 13:50 123 H 27 H 96 09/21/18 13:40 121 H 30 H 96 09/21/18 13:30 119 H 29 H 97 Intake and Output (Last 8hrs): Intake & Output 09/21/18 09/21/18 09/21/18 06:59 14:59 22:59 Intake Total 2280 931 3690 Output Total 415 200 300 Balance 1485 -100 1528 Weight 135 lb 1.6 oz Intake: IV 7040 340 2410 Crdizem drip 28 IVF 1800 IVPB 100 Left Hand 1800 Oral 100 Output: Urine 415 200 300 Urine, Voided 415 200 300 - Medications Active Medications: Active Medications Generic Name Dose Route Start Last Admin Trade Name Freq PRN Reason Stop Dose Admin Allopurinol 300 mg 09/20/18 11:00 09/20/18 12:23 Zyloprim PO 300 mg DAILY BLANK Administration Arformoterol Tartrate 15 mcg 09/20/18 20:00 09/21/18 07:54 Brovana IH 15 mcg [id number] BLANK Administration Budesonide 1 mg 09/20/18 20:00 09/21/18 07:55 Pulmicort Respules IH 1 mg [id number] BLANK Administration Famotidine 20 mg 09/20/18 14:30 09/21/18 09:01 Pepcid IVP 20 mg DAILY BLANK Administration Sodium Chloride 1,000 mls @ 150 mls/hr 09/20/18 14:30 09/21/18 10:30 Sodium Chloride 0.9% IV 150 mls/hr .[id number] BLANK Administration Doxycycline Hyclate 100 mg/ 100 mls @ 100 mls/hr 09/21/18 10:00 09/21/18 09:39 Sodium Chloride IVPB 100 mls/hr Q12 BLANK Administration Protocol [id number] IVPB 100mg in NS 100 mls @ 5 mls/hr 09/21/18 11:55 09/21/18 13:37 Cardizem 100mg In Ns IV 5 mg/hr .Q20H PRN 5 mls/hr TITRATE PER MD ORDER Administration Protocol 5 MG/HR Ipratropium [place] 0.5 mg 09/20/18 13:58 Atrovent IH [id number] PRN Shortness of Breath Levalbuterol HCl 0.63 mg 09/21/18 08:00 09/21/18 13:27 Xopenex IH 0.63 mg [id number] BLANK Administration Levalbuterol HCl 0.63 mg 09/21/18 05:30 Xopenex IH Q2H PRN sob/wheezing Losartan Potassium 50 mg 09/20/18 10:45 09/20/18 12:21 Cozaar PO 50 mg DAILY BLANK Administration Methylprednisolone 60 mg 09/20/18 14:00 09/21/18 13:36 Solu-Medrol IVP 60 mg Q8 [id number] Administration Montelukast Sodium 10 mg 09/20/18 22:15 09/20/18 22:23 Singulair PO 10 mg HS BLANK Administration - Patient Studies Lab Studies: Microbiology Studies 09/20/18 03:30 Blood Culture - Preliminary Blood-Venous NO GROWTH AFTER 24 HOURS 09/20/18 03:12 Blood Culture - Preliminary Blood-Venous NO GROWTH AFTER 24 HOURS Lab Studies 09/21/18 09/21/18 09/21/18 Range/Units 05:30 05:15 05:15 WBC 16.1 H D (4.5-11.0) 10^3/uL RBC 4.47 (3.5-6.1) 10^6/uL Hgb 13.6 L (14.0-18.0) g/dL Hct 43.0 (42.0-52.0) % MCV 96.2 (80.0-105.0) fl MCH 30.4 (25.0-35.0) pg MCHC 31.6 (31.0-37.0) g/dl RDW 12.9 (11.5-14.5) % Plt Count 202 (120.0-450.0) 10^3/uL MPV 9.7 (7.0-11.0) fl pCO2 49 H (35-45) mm/Hg pO2 124.0 H (80-100) mm/Hg HCO3 22.5 (21-28) mmol/L ABG pH 7.27 L (7.35-7.45) ABG Total CO2 24.0 (22-28) mmol.L ABG O2 Saturation 99.9 H (95-98) % ABG O2 Content 20.5 (15-23) ML/dl ABG Base Excess -4.8 L (-2.0-3.0) mmol/L ABG Hemoglobin 14.9 (11.7-17.4) g/dL ABG Carboxyhemoglobin 2.0 H (0.5-1.5) % POC ABG HHb (Measured) 0.1 (0-5) % ABG Methemoglobin 0.9 (0.0-3.0) % ABG O2 Capacity 20.5 (16-24) mL/dl Hgb O2 Saturation 97.0 (95.0-98.0) % FiO2 40.0 % Sodium 143 (132-148) mmol/L Potassium 5.0 (3.6-5.0) mmol/L Chloride 114 H (98-107) mmol/L Carbon Dioxide 23 (21-33) mmol/L Anion Gap 12 (10-20) BUN 33 H (7-21) mg/dL Creatinine 1.5 (0.8-1.5) mg/dl Est GFR ( Amer) 56 Est GFR (Non-Af Amer) 46 Random Glucose 133 H (70-110) mg/dL Calcium 8.7 (8.4-10.5) mg/dL Total Bilirubin 0.4 (0.2-1.3) mg/dL AST 33 (17-59) U/L ALT 35 (7-56) U/L Alkaline Phosphatase 63 (38-126) U/L Total Protein 7.1 (5.8-8.3) g/dL Albumin 4.0 (3.0-4.8) g/dL Globulin 3.1 gm/dL Albumin/Globulin Ratio 1.3 (1.1-1.8) Laboratory Results - last 24 hr 09/21/18 09/21/18 09/21/18 05:15 05:15 05:30 WBC 16.1 H D RBC 4.47 Hgb 13.6 L Hct 43.0 MCV 96.2 MCH 30.4 MCHC 31.6 RDW 12.9 Plt Count 202 MPV 9.7 pCO2 49 H pO2 124.0 H HCO3 22.5 ABG pH 7.27 L ABG Total CO2 24.0 ABG O2 Saturation 99.9 H ABG O2 Content 20.5 ABG Base Excess -4.8 L ABG Hemoglobin 14.9 ABG Carboxyhemoglobin 2.0 H POC ABG HHb (Measured) 0.1 ABG Methemoglobin 0.9 ABG O2 Capacity 20.5 Hgb O2 Saturation 97.0 FiO2 40.0 Sodium 143 Potassium 5.0 Chloride 114 H Carbon Dioxide 23 Anion Gap 12 BUN 33 H Creatinine 1.5 Est GFR ( Amer) 56 Est GFR (Non-Af Amer) 46 Random Glucose 133 H Calcium 8.7 Total Bilirubin 0.4 AST 33 ALT 35 Alkaline Phosphatase 63 Total Protein 7.1 Albumin 4.0 Globulin 3.1 Albumin/Globulin Ratio 1.3 Critical Care Progress Note - Nutrition Nutrition: Nutrition Category Date Time Status Heart Healthy Diet [DIET] Diets 09/20/18 Breakfast Active Attending/Attestation - Attestation I have personally seen and examined this patient.: Yes I have fully participated in the care of the patient.: Yes I have reviewed all pertinent clinical information: Yes Notes (Text): 09/21/18 17:30 73 yo male admitted to ICU with severe bronchospasm, which appeared to be due to allergic reaction to azithromycin as patient had morbilliform rash at the site of infusion as well. Patient was treated with steroids cont nebs, heliox ~70/30 (80/20 mixed with fi02 via NC). Initially did better, was put on BPAP at night, which he tolerated very well and is doing much better today. still wheezing, but much more comfortable. Patient asked to be switched to NC mode of 02 delivery-->high flow at 50L/min started, patient started to bring more sputum and feels comfortable. ABG didnt much improved 7.27/44 though, but lactic acidosis resolved. Will repeat ABG later on, if ph continue to drop on high flow-->and refuse trial of BPAP-->will intubate. creatinine is rising, allopurinol and colchicine was held (discussed and agreed upon by PMD), NS was started yesterday, but creatinine continued to rise, CXR did not show any fluid overload/congestion, but hyperchloremia in the setting of rising creatinine is concerning-->will switch to lactated ringer. cardizem drip was started by private pulm service for SVT. will continue dvt/gi prophylaxis ccm time 40 min
[2018-09-21] MEDS: Arformoterol 15 mcg/2 ml Inh Sol IH SCH ×2 (07:54→19:38)
[2018-09-21] MEDS: Budesonide 0.5 mg/2 ml Inhal Susp UD IH SCH ×2 (07:55→19:40)
[2018-09-21] MEDS: Levalbuterol 0.63 MG/3 ML Inhal Soln UD IH SCH ×3 (07:55→19:37)
--- NOTE | 2018-09-21 09:29 | HP ---
DATE OF EXAM: 09/20/2018 CHIEF COMPLAINT: Shortness of breath. HISTORY OF PRESENT ILLNESS: Mr. Jeffry Denson, my private patient with past medical history of COPD, asthma, gouty arthritis, came to the emergency room with ambulance for asthma exacerbation for one day. The patient has shortness of breath, coughing, chest pain only with coughing. No fever. No chills. No hematuria or hematochezia. I saw patient in the morning , later on rapid response for patient's tachycardia, shortness of breath and the patient was transferred to the unit seen by the in-house physician. PAST MEDICAL HISTORY: Hypertension, COPD. FAMILY HISTORY: Father and mother, noncontributory. HABITS: No smoking. No drugs. No ethanol. History of former smoking. ALLERGIES: THE PATIENT IS ALLERGIC WITH LEVAQUIN, PENICILLIN, VANCOMYCIN. HOME MEDICATIONS: Albuterol, colchicine, Advair, losartan, prednisone as per the patient. REVIEW OF SYSTEMS: The patient was seen and examined in the morning in his room, was coughing and wheezing. No fever. No chills. No headache. No dizziness. No hematuria. No hematochezia. PHYSICAL EXAMINATION: VITAL SIGNS: Temperature 98.3, pulse 136, respiratory rate 32, blood pressure 152/84. HEENT: Head is normocephalic and atraumatic. Eyes; PERRLA. Extraocular muscles are intact. Conjunctivae clear. Nose patent. Mucous membranes moist. NECK: Supple. No carotid bruits, JVD, or thyromegaly. CHEST: Bilaterally symmetrical. HEART: S1 and S2 positive. LUNGS: Clear to auscultation. ABDOMEN: Soft. Bowel sounds present. No organomegaly. EXTREMITIES: No edema. No cyanosis. NEUROLOGIC: The patient is awake and alert. Following simple commands. LABORATORY DATA: White blood cells 12.7, hemoglobin 15.1, hematocrit 46.4, platelets 197. Sodium 143, potassium 4.7, BUN 26, creatinine 1.3, glucose 161. ASSESSMENT AND PLAN: Mr. Jeffry Denson, 73 years old male with leukocytosis, renal insufficiency, hyperglycemia, history of asthma, chronic obstructive pulmonary disease, gouty arthritis, came with exacerbation of chronic obstructive pulmonary disease; was getting the steroid and IV antibiotics, has rapid response due to tachycardia and shortness of breath. Chest x-ray is done, electrocardiograph done, transferred the patient to the unit. Discussion done with Dr. Martin. Restarted the patient on Solu-Medrol, antibiotics, would consult with lumber sorter machine, Dr. Coughlin, waiting for the input. We will continue Atrovent, Benadryl, Brovana, losartan; doxycycline given. Gastrointestinal and deep venous thrombosis prophylaxes. Repeat labs. We will follow up. Mary Roper MD [facility]
[2018-09-21] MEDS: diltiaZEM IVPB 100mg in NS 100 ML IV PRN (13:37)
[2018-09-21 18:11] LABS: ARTERIAL BLOOD GAS HCO3 20.2 mmol/L (21-28); ARTERIAL BLOOD GAS O2 SAT 99.1 % (95-98); ARTERIAL BLOOD GAS PCO2 44 mm/Hg (35-45); ARTERIAL BLOOD GAS PH 7.27 (7.35-7.45); ARTERIAL BLOOD GAS TCO2 21.6 mmol.L (22-28)
--- NOTE | 2018-09-21 18:22 | PN ---
DATE: 09/21/2018 REFERRING PHYSICIAN: Dr. Rosales. SUBJECTIVE: He is on noninvasive ventilation, feels bad on the left leg, still having diffuse wheezing and shortness of breath. No nausea. No vomiting. No diarrhea. He has multiple joint deformities secondary to gout. OBJECTIVE: GENERAL: Mild to moderate distress. VITAL SIGNS: Temperature 98, heart rate 128, respiratory rate is 26, blood pressure is 152/92, pulse ox 96% on noninvasive ventilation. HEENT: Moist mucous membranes. Crowded airway. Mallampati score is 4. NECK: Supple. No JVD. LUNGS: Bilateral diffuse wheezing. HEART: S1 and S2, tachycardic. ABDOMEN: Soft. Nontender. No organomegaly. EXTREMITIES: No edema. NEUROLOGIC: Awake, alert. Follows simple commands. MEDICATIONS: He is on Atrovent, inhaled every 6 hours p.r.n., Benadryl 50 mg every 8 hours, Brovana inhaled twice a day, Cardizem D started 5 mL per hour, Cozaar 50 mg daily, doxycycline 100 mg twice a day, Pepcid 20 mg IV daily, Pulmicort inhaled twice a day, Singulair 10 mg at bedtime, also getting IV fluid normal saline 100 mL per hour, Solu-Medrol 50 mg every 8 hours, Xopenex inhaled every 2 hours p.r.n., lots of Xopenex around the clock every 6 hours, allopurinol 300 mg daily. LABORATORY DATA: Shows hemoglobin 13.6, hematocrit 43.7, WBC 16, platelets 202. Blood gas shows pH 7.27, PCO2 49, O2 is 124, this is on 40% oxygen with BiPAP on. Sodium 142, potassium 5, chloride 104, bicarbonate 23, BUN 33, creatinine 1.5, glucose 133, calcium is 8.7. AST 33, ALT 57, alkaline phosphate is 62. Albumin is 4. Microbiology: Blood culture being negative, no growth. IMPRESSION AND PLAN: Severe obstructive lung disease, gastroesophageal reflux disease, gouty arthritis, steroid dependent, sleep apnea syndrome, hypertension. Case discussed with the Nursing staff and also spoke to respiratory therapist. Continue noninvasive ventilation and may start IV Cardizem, could not take p.o. medications pretty well with high blood pressure and tachycardia to control the heart rate and blood pressure both, continue high dose of steroids, antibiotics, gastric refluxes, deep venous thrombosis prophylaxis, still getting ___ on as needed basis. Critical care time more than 35 minutes and we will follow with you. Morgan Coughlin MD
[2018-09-21] MEDS: Lactated Ringer's 1,000 ML IV SCH (19:45)
[2018-09-21 21:22] LABS: ARTERIAL BLOOD GAS HCO3 21.1 mmol/L (21-28); ARTERIAL BLOOD GAS HEMOGLOBIN 13.4 g/dL (11.7-17.4); ARTERIAL BLOOD GAS O2 CAPACITY 18.5 mL/dl (16-24); ARTERIAL BLOOD GAS O2 CONTENT 18.4 ML/dl (15-23); ARTERIAL BLOOD GAS O2 SAT 99.5 % (95-98); ARTERIAL BLOOD GAS PCO2 45 mm/Hg (35-45); ARTERIAL BLOOD GAS PH 7.28 (7.35-7.45); ARTERIAL BLOOD GAS TCO2 22.5 mmol.L (22-28)
[2018-09-22 01:11] LABS: ARTERIAL BLOOD GAS HCO3 20.1 mmol/L (21-28); ARTERIAL BLOOD GAS HEMOGLOBIN 13.6 g/dL (11.7-17.4); ARTERIAL BLOOD GAS O2 CAPACITY 18.8 mL/dl (16-24); ARTERIAL BLOOD GAS O2 CONTENT 18.7 ML/dl (15-23); ARTERIAL BLOOD GAS O2 SAT 99.7 % (95-98); ARTERIAL BLOOD GAS PCO2 47 mm/Hg (35-45); ARTERIAL BLOOD GAS PH 7.24 (7.35-7.45); ARTERIAL BLOOD GAS TCO2 21.5 mmol.L (22-28)
[2018-09-22] MEDS ORDERED: Albuterol 0.083% Inhal Sol (2.5 mg/3 mL) UD INH STA (01:24)
[2018-09-22] MEDS: diltiaZEM IVPB 100mg in NS 100 ML IV PRN ×2 (01:57→08:03)
[2018-09-22 05:58] LABS: ARTERIAL BLOOD GAS HEMOGLOBIN 14.2 g/dL (11.7-17.4); ARTERIAL BLOOD GAS O2 CAPACITY 19.5 mL/dl (16-24); ARTERIAL BLOOD GAS O2 CONTENT 19.4 ML/dl (15-23); ARTERIAL BLOOD GAS O2 SAT 99.4 % (95-98); ARTERIAL BLOOD GAS PCO2 56 mm/Hg (35-45); ARTERIAL BLOOD GAS TCO2 21.7 mmol.L (22-28)
[2018-09-22 06:06] LABS: ARTERIAL BLOOD GAS PH 7.16 (7.35-7.45)
[2018-09-22 07:14] LABS: MEAN CELL VOLUME 99.3 fl (80.0-105.0); MEAN CORPUSCULAR HEMOGLOBIN 30.2 pg (25.0-35.0); MEAN CORPUSCULAR HGB CONC 30.4 g/dl (31.0-37.0); MEAN PLATELET VOLUME 9.5 fl (7.0-11.0); RBC 4.3 10^6/uL (3.5-6.1); RED CELL DISTRIBUTION WIDTH 12.9 % (11.5-14.5); WHITE BLOOD COUNT 17.5 10^3/uL (4.5-11.0)
[2018-09-22 07:27] LABS: ALB/GLOB RATIO 1.4 (1.1-1.8); CALCIUM 9.1 mg/dL (8.4-10.5)
[2018-09-22] MEDS: Levalbuterol 0.63 MG/3 ML Inhal Soln UD IH SCH (07:31)
[2018-09-22] MEDS: Arformoterol 15 mcg/2 ml Inh Sol IH SCH ×2 (07:31→19:40)
[2018-09-22] MEDS: Budesonide 0.5 mg/2 ml Inhal Susp UD IH SCH ×2 (07:31→19:41)
[2018-09-22] MEDS ORDERED: Propofol 10 mg/ml Inj (20 ML) ONE (08:08)
[2018-09-22] MEDS ORDERED: NOREPINEPHRINE BIT/0.9 % NACL 4 MG/250 ML BAG IV ONE (08:09)
--- NOTE | 2018-09-22 08:21 | PN ---
DATE: 09/21/2018 SUBJECTIVE: The patient is a 73-year-old male. The patient was seen and examined on 09/21/2018. Looking comfortable. Had a noninvasive ventilation. Still having diffuse wheezing and shortness of breath. No nausea. No vomiting. No diarrhea. Had multiple deformities of the joints, especially hands. PHYSICAL EXAMINATION: VITALS: Temperature 98, heart rate 103, respiratory rate 22, blood pressure 150/90, and pulse oximetry 97% noninvasive ventilation. HEENT: Head, normocephalic and atraumatic. Eyes, PERRLA, extraocular muscles intact, conjunctivae clear. Nose patent. NECK: Supple. No carotid bruit. No JVD or thyromegaly. LUNGS: Bilateral diffuse wheezing. HEART: S1 and S2 positive with tachycardia. ABDOMEN: Soft, nontender. No organomegaly. EXTREMITIES: No edema. No cyanosis. NEUROLOGICAL: The patient is awake, alert, and follows simple commands. MEDICATIONS: Atrovent, Benadryl, Brovana, Cardizem, Cozaar, doxycycline, Pepcid, Pulmicort, Singulair, Solu-Medrol, and allopurinol. LABORATORY DATA: Hemoglobin 13.6, hematocrit 43.7, white blood cell 15, and platelet 202. Sodium 142, potassium 5, BUN noted , and creatinine 1.5. AST 33, ALT 57. ASSESSMENT AND PLAN: The patient has severe obstructive lung disease, gastroesophageal reflux disease, steroid dependency, sleep apnea syndrome, and hypertension. The patient is having noninvasive ventilation, getting antihypertensive medication, antibiotics, deep vein thrombosis. Reviewed Dr. Coughlin's notes. Reviewed Dr. Martin's notes also. The patient went for chest x-ray, results are pending. The patient denies any complaints. Got BiPAP last night after respiratory distress. History of chronic obstructive pulmonary disease, asthma exacerbation. The patient is improving. Tachycardia is getting better. Troponin negative x2. No angioedema. Echocardiography reviewed by me. Gouty arthritis, hold allopurinol. Gastrointestinal prophylaxis, Pepcid. Deep vein thrombosis prophylaxis, sequential compression device. Heart healthy diet. Continue BiPAP. Length of time discussion done with the patient. We will follow up. Mary Roper MD [facility] # [id number] [facility]TDK[facility]
[2018-09-22] MEDS ORDERED: Propofol 10 mg/ml 1,000 MG/100 ML VIAL ONE (08:27)
[2018-09-22] MEDS ORDERED: Fentanyl 1000mcg/100ml NS 1,000 MCG/100 ML BAG IV PRN (08:36)
[2018-09-22] MEDS ORDERED: Propofol 10 mg/ml Inj (20 ML) IVP ONE (08:42)
[2018-09-22] MEDS: Propofol 10 mg/ml 1,000 MG/100 ML VIAL IV PRN (09:00)
[2018-09-22] MEDS: Midazolam 100 mg/100ml in NS 100 MG/100 ML SOL IV PRN (09:15)
[2018-09-22] MEDS: Albuterol-Ipratrop 3 mg / 0.5 (3 ml) UD IH SCH ×6 (09:15→19:41)
--- NOTE | 2018-09-22 09:16 | RAD ---
Date of service: 09/21/2018 HISTORY: status asthmaticus COMPARISON: 09/20/2018 FINDINGS: LUNGS: No active pulmonary disease. PLEURA: No significant pleural effusion identified, no pneumothorax apparent. CARDIOVASCULAR: No aortic atherosclerotic calcification present. Normal cardiac size. No pulmonary vascular congestion. OSSEOUS STRUCTURES: No significant abnormalities. VISUALIZED UPPER ABDOMEN: Normal. OTHER FINDINGS: None. IMPRESSION: No active disease.
--- NOTE | 2018-09-22 09:26 | RAD ---
Date of service: 09/22/2018 HISTORY: dyspnea COMPARISON: 09/21/2018 FINDINGS: LUNGS: No active pulmonary disease. PLEURA: No significant pleural effusion identified, no pneumothorax apparent. CARDIOVASCULAR: Mild aortic calcification Normal cardiac size. No pulmonary vascular congestion. OSSEOUS STRUCTURES: No significant abnormalities. VISUALIZED UPPER ABDOMEN: Normal. OTHER FINDINGS: None. IMPRESSION: No active disease.
--- NOTE | 2018-09-22 09:28 | RAD ---
Date of service: 09/22/2018 HISTORY: intubation COMPARISON: Earlier same day FINDINGS: LUNGS: The endotracheal tube and nasogastric tube are in satisfactory position. The lungs are clear PLEURA: No significant pleural effusion identified, no pneumothorax apparent. CARDIOVASCULAR: Mild aortic calcification Normal cardiac size. No pulmonary vascular congestion. OSSEOUS STRUCTURES: No significant abnormalities. VISUALIZED UPPER ABDOMEN: Normal. OTHER FINDINGS: None. IMPRESSION: The endotracheal tube and nasogastric tube are in satisfactory position. The lungs are clear
[2018-09-22 10:04] LABS: ARTERIAL BLOOD GAS HCO3 22.1 mmol/L (21-28); ARTERIAL BLOOD GAS O2 SAT 99.1 % (95-98); ARTERIAL BLOOD GAS PCO2 68 mm/Hg (35-45); ARTERIAL BLOOD GAS TCO2 24.2 mmol.L (22-28)
[2018-09-22 10:29] LABS: ARTERIAL BLOOD GAS PH 7.12 (7.35-7.45)
[2018-09-22] MEDS ORDERED: Sodium Chloride 0.9% 1,000 ML IV STA (11:00)
[2018-09-22 11:29] LABS: ARTERIAL BLOOD GAS HCO3 21.9 mmol/L (21-28); ARTERIAL BLOOD GAS HEMOGLOBIN 11.7 g/dL (11.7-17.4); ARTERIAL BLOOD GAS O2 CAPACITY 16.5 mL/dl (16-24); ARTERIAL BLOOD GAS O2 CONTENT 16.5 ML/dl (15-23); ARTERIAL BLOOD GAS O2 SAT 99.9 % (95-98); ARTERIAL BLOOD GAS PCO2 50 mm/Hg (35-45); ARTERIAL BLOOD GAS PH 7.25 (7.35-7.45); ARTERIAL BLOOD GAS TCO2 23.4 mmol.L (22-28)
[2018-09-22] MEDS: Lactated Ringer's 1,000 ML IV SCH ×3 (12:40→17:30)
--- NOTE | 2018-09-22 13:03 | PN ---
DATE: 09/22/2018 SUBJECTIVE: The patient is seen and examined at bedside. The patient was in respiratory distress in the morning, struggling to breathe, unable to tolerate BiPAP. His morning ABG showed pH 7.16 with pCO2 rising. Decision was made to intubate the patient. The patient was intubated, required sedation and neuromuscular blockade to maintain I:E ratio of 1:2.7. ABG are pending. At present time, the patient is on propofol drip as well and Versed and fentanyl drips are pending. The patient is on propofol 20 mcg per kg per minute. PHYSICAL EXAMINATION: VITAL SIGNS: Blood pressure 122/65, heart rate 102, oxygen saturation 96%, end-tidal CO2 on the monitor 66, respiratory rate 16, peak pressure on the ventilator is 19. Of note, end-tidal CO2 went down from 80 to 66 and peak pressure went down from 25 to 19. ENT: Head and neck atraumatic. The patient is intubated. LUNGS: Few wheezes and prolonged expiratory wheeze prior to neuromuscular blockade bilaterally. HEART: Regular rate and rhythm. S1 and S2 normal. ABDOMEN: Soft, nontender, nondistended. The patient received Lasix and made about 1.2 liters of urine output overnight. MUSCULOSKELETAL: No C/C/E. SKIN: Moist. PSYCH: The patient is sedated and paralyzed at present time. NEURO: The patient was seen moving all extremities spontaneously prior to neuromuscular blockade. LABORATORY DATA: Sodium 149, potassium 5.9 (most likely due to combined metabolic and respiratory acidosis. Once acidosis is corrected, potassium expected to go down. Renal consult was also called. If potassium failed to go down to safer range, Kayexalate will be given through NG tube), chloride 118 (the patient was switched from normal saline to lactated Ringer yesterday), carbon dioxide 25, BUN 52, creatinine 1.8 (renal consult was called), glucose 135, AST 60, ALT 44, total bilirubin 0.6. ABG prior to intubation 7.16/56/110 on 40% FiO2. MEDICATIONS: , Brovana, budesonide, Cardizem on hold, doxycycline, Pepcid, fentanyl drip, Xopenex p.r.n. and every 6 hours, Solu-Medrol 60 mg IV every 8 hours, Singulair, propofol, Versed. Chest x-ray showed hyperinflation of both lungs, endotracheal tube is in correct position. NG tube is in correct position. ASSESSMENT AND PLAN This is a 73-year-old gentleman who presented with hypercapnic respiratory failure requiring intubation in the setting of superimposed metabolic acidosis and renal failure. Neurologic: At present time, the patient is intubated, sedated and neuromuscular blockaded with Nimbex. His I:E ratio is 1:2.8. His peak pressure is 19. If neuromuscular blockade required for longer period of time a train of four and BIS will be implemented. Meanwhile, the patient will be on fentanyl 100 mcg per hour and Versed 5 mg per hour. Pulmonary: The patient is intubated. His I:E ratio is 1:2.7, peak pressure 19. He is on steroids 60 mg intravenously q8h. We will increase DuoNeb to every 2 hours for now. We will continue with low-intermittent Vt to avoid ventilator-induced lung injury. We will continue with conservative fluid and oxygen management as long as kidneys are perfused. Head of bed elevated >35 degrees. Oral hygiene. Ve adjusted to ph 7.3. avoid hyperventilation. Cardiovascular: The patient is hemodynamically stable. We will order echocardiogram. Echo: prelim: NL LVEF and RV function, No severe PH (official report is pending) Gastrointestinal: We will start enteral nutrition. Gastrointestinal prophylaxis. Infectious disease: The patient is on doxycycline. His white blood cells is rising. We will get Infectious Disease consult to follow up on that. We will continue with deep vein thrombosis, gastrointestinal prophylaxis. Renal: good urine output (patient responded to lasix overnight), maitain MAP>65. avoid NS, hyperchloremia and use LR, last K 4.6, creatinine started to trend down, appears to be euvolemic. renal consult is appreciated. ccm time 40 min Tomas Martin MD MTDD
--- NOTE | 2018-09-22 13:47 | RAD ---
Date of service: 09/22/2018 HISTORY: pneumothorax COMPARISON: 09/22/2018 FINDINGS: LUNGS: No active pulmonary disease. PLEURA: No significant pleural effusion identified, no pneumothorax apparent. CARDIOVASCULAR: Minimal aortic calcification Normal cardiac size. No pulmonary vascular congestion. OSSEOUS STRUCTURES: No significant abnormalities. VISUALIZED UPPER ABDOMEN: Normal. OTHER FINDINGS: Endotracheal tube and nasogastric tube in satisfactory position IMPRESSION: No active disease.
--- NOTE | 2018-09-22 14:42 | CP.PCM.CON ---
<Umesh Lin - Last Filed: 09/22/18 14:35> History of Present Illness - History of Present Illness History of Present Illness: Infectious disease consult note for Dr. Galarza/Dr. Bear service - Herbert Lin PGY3 HPI: Patient is a 73yo male with history of COPD/asthma, gout, hypertension who presented to [facility] with report of shortness of breath associated with non- productive cough for one day prior to presentation. The patient reportedly has a history of multiple COPD/asthma exacerbations and upon arrival to the ER was treated with bronchodilators, steroids and mag sulfate. On the medical floor patient was started on azithromycin and developed a rash at the infusion site and increasing shortness of breath consistent with drug reaction. Azithromycin was urgently held and he was given benadryl, steroids, bronchodilators and transferred to the ICU for closer monitoring. He was subsequently intubated due to worsening acidosis. ID consulted for evaluation of SIRS. 12point ROS limited due to patient status PMH: as stated above Allergies: extensive including azithromycin, levaquin, penicillin, vancomycin Social Hx: Ex-smoker, no reported alcohol or illicit drug use Family Hx: reviewed; non-contributory Past Patient History - Infectious Disease Hx of Infectious Diseases: None - Past Social History Smoking Status: Unknown If Ever Smoked - CARDIAC Hx Cardiac Disorders: No Hx Angina: No Hx Cardia Arrhythmia: No Hx Circulatory Problems: No Hx Congestive Heart Failure: No Hx Heart Murmur: No Hx Heart Transplant: No Hx Hypercholesterolemia: No Hx Hypertension: No Hx Internal Defibrillator: No Hx Mitral Valve Prolapse: No Hx Pacemaker: No Hx Peripheral Edema: No Hx Peripheral Vascular Disease: No - PULMONARY Hx Chronic Obstructive Pulmonary Disease (COPD): Yes - NEUROLOGICAL Hx Neurological Disorder: No - HEENT Hx HEENT Problems: No - ENDOCRINE/METABOLIC Hx Endocrine Disorders: No - HEMATOLOGICAL/ONCOLOGICAL Hx Blood Disorders: No - INTEGUMENTARY Hx Dermatological Problems: No - MUSCULOSKELETAL/RHEUMATOLOGICAL Hx Falls: No - GASTROINTESTINAL Hx Gastrointestinal Disorders: No - GENITOURINARY/GYNECOLOGICAL Hx Genitourinary Disorders: No - PSYCHIATRIC Hx Psychophysiologic Disorder: No Hx Substance Use: No - SURGICAL HISTORY Hx Cardiac Catheterization: No Hx Coronary Stent: No - ANESTHESIA Hx Anesthesia: No Meds Allergies/Adverse Reactions: Allergies Allergy/AdvReac Type Severity Reaction Status Date / Time azithromycin Allergy SHORTNESS Verified 09/20/18 16:44 OF BREATH levofloxacin [From Levaquin] Allergy RASH Verified 09/20/18 03:12 Penicillins Allergy RASH Verified 09/20/18 03:12 vancomycin Allergy SHORTNESS Verified 09/20/18 03:12 OF BREATH - Medications Medications: Current Medications Albuterol/Ipratropium (Duoneb 3 Mg/0.5 Mg (3 Ml) Ud) 3 ml IH Q2H BLANK Last Admin: 09/22/18 13:10 Dose: 3 ml Allopurinol (Zyloprim) 300 mg PO DAILY [facility] Last Admin: 09/20/18 12:23 Dose: 300 mg Arformoterol Tartrate (Brovana) 15 mcg IH [id number] [facility] Last Admin: 09/22/18 07:31 Dose: 15 mcg Budesonide (Pulmicort Respules) 1 mg IH [id number] [facility] Last Admin: 09/22/18 07:31 Dose: 1 mg Heparin Sodium (Porcine) (Heparin) 5,000 units SC Q8 [facility]; Protocol Last Admin: 09/22/18 12:20 Dose: 5,000 units Doxycycline Hyclate 100 mg/ (Sodium Chloride) 100 mls @ 100 mls/hr IVPB Q12 BLANK; Protocol Last Admin: 09/22/18 12:17 Dose: 100 mls/hr diltiaZEM IVPB 100mg in NS (Cardizem 100mg In Ns) 100 mls @ 5 mls/hr IV .Q20H PRN; Protocol PRN Reason: TITRATE PER MD ORDER Last Titration: 09/22/18 09:45 Dose: 0 mg/hr, 0 mls/hr Lactated Ringer's (Lactated Ringer's) 1,000 mls @ 150 mls/hr IV .Q6H40M [facility] Last Admin: 09/22/18 12:42 Dose: 150 mls/hr Acetaminophen (Ofirmev) 1,000 mg in 100 mls @ 400 mls/hr IVPB Q6H PRN PRN Reason: Temperature > 100.4 Stop: 09/24/18 06:02 Last Admin: 09/22/18 06:32 Dose: 400 mls/hr Propofol (Diprivan) 1,000 mg in 100 mls @ 3.677 mls/hr IV .Q24H PRN; Protocol PRN Reason: TITRATE PER MD ORDER Last Admin: 09/22/18 09:00 Dose: 10 mcg/kg/min, 3.677 mls/hr Fentanyl Citrate (Fentanyl Citrate/Sodium Chloride 1 Mg/100 Ml) 1,000 mcg in 100 mls @ 10 mls/hr IV .Q10H PRN; Protocol PRN Reason: TITRATE PER MD ORDER Last Admin: 09/22/18 09:30 Dose: 100 mcg/hr, 10 mls/hr Midazolam 100 mg/100ml in NS (Midazolam 100 Mg/100ml In Ns) 100 mg in 100 mls @ 5 mls/hr IV .Q20H PRN; Protocol PRN Reason: Agitation Last Admin: 09/22/18 09:15 Dose: 5 mg/hr, 5 mls/hr Ipratropium [place] (Atrovent) 0.5 mg IH [id number] PRN PRN Reason: Shortness of Breath Levalbuterol HCl (Xopenex) 0.63 mg IH Q2H PRN PRN Reason: sob/wheezing Losartan Potassium (Cozaar) 50 mg PO DAILY [facility] Last Admin: 09/20/18 12:21 Dose: 50 mg Methylprednisolone (Solu-Medrol) 60 mg IVP Q8 [facility] Last Admin: 09/22/18 06:32 Dose: 60 mg Montelukast Sodium (Singulair) 10 mg PO HS [facility] Last Admin: 09/21/18 21:34 Dose: 10 mg Pantoprazole Sodium (Protonix Inj) 40 mg IVP DAILY [facility] Last Admin: 09/22/18 12:20 Dose: 40 mg Physical Exam - Head Exam Head Exam: ATRAUMATIC, NORMAL INSPECTION, NORMOCEPHALIC - ENT Exam ENT Exam: Mucous Membranes Moist - Neck Exam Neck exam: Positive for: Normal Inspection - Respiratory Exam Respiratory Exam: Wheezes. absent: Clear to Auscultation Bilateral, Rales, Rhonchi - Cardiovascular Exam Cardiovascular Exam: +S1, +S2. absent: Gallop, JVD, Rubs - GI/Abdominal Exam GI & Abdominal Exam: Soft. absent: Distended, Firm, Guarding, Rigid, Tenderness - Skin Skin Exam: Dry, Intact, Normal Color, Warm Results - Vital Signs Recent Vital Signs: Last Vital Signs Temp 98.2 F 09/21/18 16:00 Pulse 88 09/22/18 12:42 Resp 79 H 09/22/18 05:33 BP 91/50 L 09/22/18 12:42 Pulse Ox 96 09/22/18 12:42 - Labs Result Diagrams: 09/22/18 06:30 09/22/18 06:30 Labs: Laboratory Results - last 24 hr 09/21/18 09/21/18 09/22/18 09:05 18:06 01:02 WBC RBC Hgb Hct MCV MCH MCHC RDW Plt Count MPV D-Dimer, Quantitative pCO2 45 44 47 H pO2 123.0 H 98.0 138.0 H HCO3 21.1 20.2 L 20.1 L ABG pH 7.28 L 7.27 L 7.24 L ABG Total CO2 22.5 21.6 L 21.5 L ABG O2 Saturation 99.5 H 99.1 H 99.7 H ABG O2 Content 18.4 18.7 ABG Base Excess -5.6 L -6.6 L -7.3 L ABG Hemoglobin 13.4 13.6 ABG Carboxyhemoglobin 1.6 H 1.7 H POC ABG HHb (Measured) 0.5 0.3 ABG Methemoglobin 1.1 1.2 ABG O2 Capacity 18.5 18.8 ABG Potassium 4.6 Hgb O2 Saturation 96.7 96.8 Sodium 144.0 Chloride 113.0 H Glucose 125 H Lactate 1.4 Mechanical Rate 50 FiO2 40.0 40.0 40.0 Tidal Volume PEEP Potassium Carbon Dioxide Anion Gap BUN Creatinine Est GFR ( Amer) Est GFR (Non-Af Amer) Random Glucose Calcium Total Bilirubin AST ALT Alkaline Phosphatase Total Protein Albumin Globulin Albumin/Globulin Ratio Arterial Blood Potassium 4.6 09/22/18 09/22/18 09/22/18 01:29 05:45 06:30 WBC 17.5 H RBC 4.30 Hgb 13.0 L Hct 42.7 MCV 99.3 D MCH 30.2 MCHC 30.4 L RDW 12.9 Plt Count 182 MPV 9.5 D-Dimer, Quantitative 274 H pCO2 56 H pO2 110.0 H HCO3 20.0 L ABG pH 7.16 L* ABG Total CO2 21.7 L ABG O2 Saturation 99.4 H ABG O2 Content 19.4 ABG Base Excess -9.2 L ABG Hemoglobin 14.2 ABG Carboxyhemoglobin 1.9 H POC ABG HHb (Measured) 0.6 ABG Methemoglobin 0.8 ABG O2 Capacity 19.5 ABG Potassium Hgb O2 Saturation 96.7 Sodium Chloride Glucose Lactate Mechanical Rate FiO2 40.0 Tidal Volume PEEP Potassium Carbon Dioxide Anion Gap BUN Creatinine Est GFR ( Amer) Est GFR (Non-Af Amer) Random Glucose Calcium Total Bilirubin AST ALT Alkaline Phosphatase Total Protein Albumin Globulin Albumin/Globulin Ratio Arterial Blood Potassium 09/22/18 09/22/18 09/22/18 06:30 10:00 11:20 WBC RBC Hgb Hct MCV MCH MCHC RDW Plt Count MPV D-Dimer, Quantitative pCO2 68 H 50 H pO2 107.0 H 187.0 H HCO3 22.1 21.9 ABG pH 7.12 L* 7.25 L ABG Total CO2 24.2 23.4 ABG O2 Saturation 99.1 H 99.9 H ABG O2 Content 16.5 ABG Base Excess -8.3 L -5.5 L ABG Hemoglobin 11.7 ABG Carboxyhemoglobin 1.5 POC ABG HHb (Measured) 0.1 ABG Methemoglobin 0.7 ABG O2 Capacity 16.5 ABG Potassium 4.9 Hgb O2 Saturation 97.6 Sodium 149 H 147.0 Chloride 118 H 116.0 H Glucose 136 H Lactate 1.0 Mechanical Rate 16 FiO2 50.0 50.0 Tidal Volume 340 PEEP 5 Potassium 5.9 H* Carbon Dioxide 25 Anion Gap 12 BUN 52 H Creatinine 1.8 H Est GFR ( Amer) 45 Est GFR (Non-Af Amer) 37 Random Glucose 135 H Calcium 9.1 Total Bilirubin 0.6 AST 60 H D ALT 44 Alkaline Phosphatase 57 Total Protein 6.9 Albumin 4.0 Globulin 2.9 Albumin/Globulin Ratio 1.4 Arterial Blood Potassium 4.9 Assessment & Plan - Assessment and Plan (Free Text) Plan: 73yo male with history of steroid-dependent COPD/asthma, hypertension and gout presents with shortness of breath secondary to COPD/asthma exacerbation complicated by allergic drug reaction to azithromycin 1. Acute hypoxemic respiratory failure secondary to COPD/asthma exacerbation 2. Allergic drug reaction to azithromycin 3. SIRS without clear infectious etiology 4. Hx of gout -Patient is afebrile with leukocytosis likely secondary to steroid administration -Continue with doxycyline pending culture/procalcitonin -Blood cultures negative over past 48hrs -Rapid flu negative -CXR revealed no active disease -Procalcitonin is pending -No apparent infectious etiology at the present time; further workup pending Patient seen and case discussed/reviewed with attending, Dr. Galarza <Deejay Galarza - Last Filed: 09/22/18 16:52> Meds - Medications Medications: Current Medications Albuterol/Ipratropium (Duoneb 3 Mg/0.5 Mg (3 Ml) Ud) 3 ml IH Q2H BLANK Last Admin: 09/22/18 15:15 Dose: 3 ml Allopurinol (Zyloprim) 300 mg PO DAILY BLANK Last Admin: 09/20/18 12:23 Dose: 300 mg Arformoterol Tartrate (Brovana) 15 mcg IH [id number] BLANK Last Admin: 09/22/18 07:31 Dose: 15 mcg Budesonide (Pulmicort Respules) 1 mg IH [id number] BLANK Last Admin: 09/22/18 07:31 Dose: 1 mg Heparin Sodium (Porcine) (Heparin) 5,000 units SC Q8 BLANK; Protocol Last Admin: 09/22/18 16:18 Dose: Not Given Doxycycline Hyclate 100 mg/ (Sodium Chloride) 100 mls @ 100 mls/hr IVPB Q12 BLANK; Protocol Last Admin: 09/22/18 12:17 Dose: 100 mls/hr Acetaminophen (Ofirmev) 1,000 mg in 100 mls @ 400 mls/hr IVPB Q6H PRN PRN Reason: Temperature > 100.4 Stop: 09/24/18 06:02 Last Admin: 09/22/18 06:32 Dose: 400 mls/hr Propofol (Diprivan) 1,000 mg in 100 mls @ 3.677 mls/hr IV .Q24H PRN; Protocol PRN Reason: TITRATE PER MD ORDER Last Admin: 09/22/18 09:00 Dose: 10 mcg/kg/min, 3.677 mls/hr Fentanyl Citrate (Fentanyl Citrate/Sodium Chloride 1 Mg/100 Ml) 1,000 mcg in 100 mls @ 10 mls/hr IV .Q10H PRN; Protocol PRN Reason: TITRATE PER MD ORDER Last Admin: 09/22/18 09:30 Dose: 100 mcg/hr, 10 mls/hr Midazolam 100 mg/100ml in NS (Midazolam 100 Mg/100ml In Ns) 100 mg in 100 mls @ 5 mls/hr IV .Q20H PRN; Protocol PRN Reason: Agitation Last Admin: 09/22/18 09:15 Dose: 5 mg/hr, 5 mls/hr Ipratropium [place] (Atrovent) 0.5 mg IH [id number] PRN PRN Reason: Shortness of Breath Levalbuterol HCl (Xopenex) 0.63 mg IH Q2H PRN PRN Reason: sob/wheezing Losartan Potassium (Cozaar) 50 mg PO DAILY [facility] Last Admin: 09/20/18 12:21 Dose: 50 mg Methylprednisolone (Solu-Medrol) 60 mg IVP Q8 [facility] Last Admin: 09/22/18 16:17 Dose: 60 mg Montelukast Sodium (Singulair) 10 mg PO HS [facility] Last Admin: 09/21/18 21:34 Dose: 10 mg Pantoprazole Sodium (Protonix Inj) 40 mg IVP DAILY [facility] Last Admin: 09/22/18 12:20 Dose: 40 mg Results - Vital Signs Recent Vital Signs: Last Vital Signs Temp 98.1 F 09/22/18 12:00 Pulse 85 09/22/18 16:19 Resp 79 H 09/22/18 05:33 BP 98/54 L 09/22/18 16:20 Pulse Ox 97 09/22/18 16:16 - Labs Result Diagrams: 09/22/18 16:16 09/22/18 16:16 Labs: Laboratory Results - last 24 hr 09/21/18 09/21/18 09/22/18 09:05 18:06 01:02 WBC RBC Hgb Hct MCV MCH MCHC RDW Plt Count MPV Gran % Lymph % (Auto) Carter % (Auto) Eos % (Auto) Baso % (Auto) Gran # Lymph # (Auto) Carter # (Auto) Eos # (Auto) Baso # (Auto) D-Dimer, Quantitative pCO2 45 44 47 H pO2 123.0 H 98.0 138.0 H HCO3 21.1 20.2 L 20.1 L ABG pH 7.28 L 7.27 L 7.24 L ABG Total CO2 22.5 21.6 L 21.5 L ABG O2 Saturation 99.5 H 99.1 H 99.7 H ABG O2 Content 18.4 18.7 ABG Base Excess -5.6 L -6.6 L -7.3 L ABG Hemoglobin 13.4 13.6 ABG Carboxyhemoglobin 1.6 H 1.7 H POC ABG HHb (Measured) 0.5 0.3 ABG Methemoglobin 1.1 1.2 ABG O2 Capacity 18.5 18.8 ABG Potassium 4.6 Hgb O2 Saturation 96.7 96.8 Sodium 144.0 Chloride 113.0 H Glucose 125 H Lactate 1.4 Mechanical Rate 50 FiO2 40.0 40.0 40.0 Tidal Volume PEEP Potassium Carbon Dioxide Anion Gap BUN Creatinine Est GFR ( Amer) Est GFR (Non-Af Amer) Random Glucose Calcium Phosphorus Magnesium Total Bilirubin AST ALT Alkaline Phosphatase Total Protein Albumin Globulin Albumin/Globulin Ratio Arterial Blood Potassium 4.6 09/22/18 09/22/18 09/22/18 01:29 05:45 06:30 WBC 17.5 H RBC 4.30 Hgb 13.0 L Hct 42.7 MCV 99.3 D MCH 30.2 MCHC 30.4 L RDW 12.9 Plt Count 182 MPV 9.5 Gran % Lymph % (Auto) Carter % (Auto) Eos % (Auto) Baso % (Auto) Gran # Lymph # (Auto) Carter # (Auto) Eos # (Auto) Baso # (Auto) D-Dimer, Quantitative 274 H pCO2 56 H pO2 110.0 H HCO3 20.0 L ABG pH 7.16 L* ABG Total CO2 21.7 L ABG O2 Saturation 99.4 H ABG O2 Content 19.4 ABG Base Excess -9.2 L ABG Hemoglobin 14.2 ABG Carboxyhemoglobin 1.9 H POC ABG HHb (Measured) 0.6 ABG Methemoglobin 0.8 ABG O2 Capacity 19.5 ABG Potassium Hgb O2 Saturation 96.7 Sodium Chloride Glucose Lactate Mechanical Rate FiO2 40.0 Tidal Volume PEEP Potassium Carbon Dioxide Anion Gap BUN Creatinine Est GFR ( Amer) Est GFR (Non-Af Amer) Random Glucose Calcium Phosphorus Magnesium Total Bilirubin AST ALT Alkaline Phosphatase Total Protein Albumin Globulin Albumin/Globulin Ratio Arterial Blood Potassium 09/22/18 09/22/18 09/22/18 06:30 10:00 11:20 WBC RBC Hgb Hct MCV MCH MCHC RDW Plt Count MPV Gran % Lymph % (Auto) Carter % (Auto) Eos % (Auto) Baso % (Auto) Gran # Lymph # (Auto) Carter # (Auto) Eos # (Auto) Baso # (Auto) D-Dimer, Quantitative pCO2 68 H 50 H pO2 107.0 H 187.0 H HCO3 22.1 21.9 ABG pH 7.12 L* 7.25 L ABG Total CO2 24.2 23.4 ABG O2 Saturation 99.1 H 99.9 H ABG O2 Content 16.5 ABG Base Excess -8.3 L -5.5 L ABG Hemoglobin 11.7 ABG Carboxyhemoglobin 1.5 POC ABG HHb (Measured) 0.1 ABG Methemoglobin 0.7 ABG O2 Capacity 16.5 ABG Potassium 4.9 Hgb O2 Saturation 97.6 Sodium 149 H 147.0 Chloride 118 H 116.0 H Glucose 136 H Lactate 1.0 Mechanical Rate 16 FiO2 50.0 50.0 Tidal Volume 340 PEEP 5 Potassium 5.9 H* Carbon Dioxide 25 Anion Gap 12 BUN 52 H Creatinine 1.8 H Est GFR ( Amer) 45 Est GFR (Non-Af Amer) 37 Random Glucose 135 H Calcium 9.1 Phosphorus Magnesium Total Bilirubin 0.6 AST 60 H D ALT 44 Alkaline Phosphatase 57 Total Protein 6.9 Albumin 4.0 Globulin 2.9 Albumin/Globulin Ratio 1.4 Arterial Blood Potassium 4.9 09/22/18 09/22/18 09/22/18 15:37 16:16 16:16 WBC 9.6 D RBC 3.67 Hgb 11.2 L Hct 36.4 L MCV 99.2 MCH 30.5 MCHC 30.8 L RDW 12.8 Plt Count 132 MPV 9.6 Gran % 95.3 H Lymph % (Auto) 4.6 L Carter % (Auto) 0.1 L Eos % (Auto) 0.0 L Baso % (Auto) 0.0 Gran # 9.18 H Lymph # (Auto) 0.4 L Carter # (Auto) 0.0 L Eos # (Auto) 0.0 Baso # (Auto) 0.00 D-Dimer, Quantitative pCO2 40 pO2 155.0 H HCO3 19.7 L ABG pH 7.30 L ABG Total CO2 20.9 L ABG O2 Saturation 100.3 H ABG O2 Content 15.8 ABG Base Excess -6.3 L ABG Hemoglobin 11.3 L ABG Carboxyhemoglobin 2.0 H POC ABG HHb (Measured) -0.3 L ABG Methemoglobin 0.9 ABG O2 Capacity 15.8 L ABG Potassium Hgb O2 Saturation 97.5 Sodium 147 Chloride 121 H Glucose Lactate Mechanical Rate FiO2 40.0 Tidal Volume PEEP Potassium 4.4 Carbon Dioxide 22 Anion Gap 9 L BUN 50 H Creatinine 1.5 Est GFR ( Amer) 56 Est GFR (Non-Af Amer) 46 Random Glucose 125 H Calcium 7.8 L Phosphorus 4.0 Magnesium 2.7 H Total Bilirubin 0.4 AST 46 ALT 47 Alkaline Phosphatase 45 Total Protein 5.6 L Albumin 3.0 Globulin 2.6 Albumin/Globulin Ratio 1.2 Arterial Blood Potassium Assessment & Plan - Assessment and Plan (Free Text) Plan: Infectious diseases Attending Physician Attestation Patient seen and examined, discussed with nurses medical assistants phlebotomists. I have reviewed the patient's history of present illness, past medical, social, personal and family histories, pertinent physical exam findings, course so far in this hospital admission, pertinent laboratory and imaging results. I agree with the above findings, assessment and plan. In addition, will continue Doxycycline for this patient with probable COPD exacerbation. Reviewed CXR which does not show infiltrates, blood cx are negative. Will follow up PCT. Leukocytosis is probably due to steroids.
--- NOTE | 2018-09-22 15:05 | CP.PCM.CON ---
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 Maintain hemodynamics stable. Avoid hypotension. Patient not on ACEI/ARB due to recent AMPARO Monitor Input/Output, daily weights and renal function with basic metabolic panel continue with hypotonic fluids. respi symptoms unlikely to be related to fluid status. normal BNP. consider to defer further lasix for now. also BP on low side if K remains elevated, switch IVF from LR to 0.45% saline. continue with IVF no need for bicarb supplements at this time. free water via NG tube, when started on feeding. renal sonogram once stable. UA, urine Na/Cr, Pro/cr, alb/cr Dose meds/antibiotics for reduced GFR. Avoid fleets enema/magnesium based laxatives. Avoid nephrotoxins/NSAIDs/ iodinated contrast (unless needed emergently) Glycemic control Further work up/management as per primary team Thanks for allowing me to participate in care of your patient. Will follow patient with you. Please call if any Qs. had d/w team Dr Ming [place] Office: [phone] Chief Complaint; unable to obtain Reason for consult: Acute Kidney Injury HPI: Pt is a 73 M with hx of copd/asthma presented with complaints of SOB and intubated for acute respi failure. renal consult for AMPARO. Denies OTC/herbal meds or NSAIDs No recent iodinated contrast exposure. Noted obvious episodes of low BP (80s). pt unable to provide any hx pt with AKIs in past with cr up to 1.3 which improved intermittently to 0.8-0.9 cr 1.3 at presentation ROS: unable to obtain Physical Examination: General Appearance: Comfortable, in no acute respiratory distress, ill appearing. intubated/sedated Vitals reviewed and noted as below Head; Atraumatic, normocephalic ENT: orally intubated EYES: Pupils are equal, round and reactive to light accommodation. Eye muscles and extraocular movement intact. Sclera is anicteric. Neck; supple no lymphadenopathy, no thyromegaly or bruit Lungs: Normal respiratory rate/effort. Breath sounds bilateral decreased at bases with wheezing Heart: Normal rate. s1s2 normal. No rub or gallop. Extremities: no edema. No varicose veins Neurological: Patient is sedated Skin: Warm and dry. Normal turgor. No rash. Palpitation: Normal elasticity for age Abdomen: Abdomen is soft. Bowel sounds +. There is no abdominal tenderness, no guarding/rigidity no organomegaly Psych: deferred MSK: no joint tenderness or swelling. Digits and nails normal, no deformity : kidney or bladder not palpable. has box Labs/imaging reviewed. Past medical history, past surgical history, family history, social history, allergy reviewed and noted as below Family hx: no hx of CKD. Rest non-contributory Past Patient History - Infectious Disease Hx of Infectious Diseases: None - Past Social History Smoking Status: Unknown If Ever Smoked - CARDIAC Hx Cardiac Disorders: No Hx Angina: No Hx Cardia Arrhythmia: No Hx Circulatory Problems: No Hx Congestive Heart Failure: No Hx Heart Murmur: No Hx Heart Transplant: No Hx Hypercholesterolemia: No Hx Hypertension: No Hx Internal Defibrillator: No Hx Mitral Valve Prolapse: No Hx Pacemaker: No Hx Peripheral Edema: No Hx Peripheral Vascular Disease: No - PULMONARY Hx Chronic Obstructive Pulmonary Disease (COPD): Yes - NEUROLOGICAL Hx Neurological Disorder: No - HEENT Hx HEENT Problems: No - ENDOCRINE/METABOLIC Hx Endocrine Disorders: No - HEMATOLOGICAL/ONCOLOGICAL Hx Blood Disorders: No - INTEGUMENTARY Hx Dermatological Problems: No - MUSCULOSKELETAL/RHEUMATOLOGICAL Hx Falls: No - GASTROINTESTINAL Hx Gastrointestinal Disorders: No - GENITOURINARY/GYNECOLOGICAL Hx Genitourinary Disorders: No - PSYCHIATRIC Hx Psychophysiologic Disorder: No Hx Substance Use: No - SURGICAL HISTORY Hx Cardiac Catheterization: No Hx Coronary Stent: No - ANESTHESIA Hx Anesthesia: No Meds Allergies/Adverse Reactions: Allergies Allergy/AdvReac Type Severity Reaction Status Date / Time azithromycin Allergy SHORTNESS Verified 09/20/18 16:44 OF BREATH levofloxacin [From Levaquin] Allergy RASH Verified 09/20/18 03:12 Penicillins Allergy RASH Verified 09/20/18 03:12 vancomycin Allergy SHORTNESS Verified 09/20/18 03:12 OF BREATH - Medications Medications: Current Medications Albuterol/Ipratropium (Duoneb 3 Mg/0.5 Mg (3 Ml) Ud) 3 ml IH Q2H [facility] Last Admin: 09/22/18 13:10 Dose: 3 ml Allopurinol (Zyloprim) 300 mg PO DAILY [facility] Last Admin: 09/20/18 12:23 Dose: 300 mg Arformoterol Tartrate (Brovana) 15 mcg IH [id number] [facility] Last Admin: 09/22/18 07:31 Dose: 15 mcg Budesonide (Pulmicort Respules) 1 mg IH [id number] [facility] Last Admin: 09/22/18 07:31 Dose: 1 mg Heparin Sodium (Porcine) (Heparin) 5,000 units SC Q8 [facility]; Protocol Last Admin: 09/22/18 12:20 Dose: 5,000 units Doxycycline Hyclate 100 mg/ (Sodium Chloride) 100 mls @ 100 mls/hr IVPB Q12 [facility]; Protocol Last Admin: 09/22/18 12:17 Dose: 100 mls/hr diltiaZEM IVPB 100mg in NS (Cardizem 100mg In Ns) 100 mls @ 5 mls/hr IV .Q20H PRN; Protocol PRN Reason: TITRATE PER MD ORDER Last Titration: 09/22/18 09:45 Dose: 0 mg/hr, 0 mls/hr Lactated Ringer's (Lactated Ringer's) 1,000 mls @ 150 mls/hr IV .Q6H40M [facility] Last Admin: 09/22/18 12:42 Dose: 150 mls/hr Acetaminophen (Ofirmev) 1,000 mg in 100 mls @ 400 mls/hr IVPB Q6H PRN PRN Reason: Temperature > 100.4 Stop: 09/24/18 06:02 Last Admin: 09/22/18 06:32 Dose: 400 mls/hr Propofol (Diprivan) 1,000 mg in 100 mls @ 3.677 mls/hr IV .Q24H PRN; Protocol PRN Reason: TITRATE PER MD ORDER Last Admin: 09/22/18 09:00 Dose: 10 mcg/kg/min, 3.677 mls/hr Fentanyl Citrate (Fentanyl Citrate/Sodium Chloride 1 Mg/100 Ml) 1,000 mcg in 100 mls @ 10 mls/hr IV .Q10H PRN; Protocol PRN Reason: TITRATE PER MD ORDER Last Admin: 09/22/18 09:30 Dose: 100 mcg/hr, 10 mls/hr Midazolam 100 mg/100ml in NS (Midazolam 100 Mg/100ml In Ns) 100 mg in 100 mls @ 5 mls/hr IV .Q20H PRN; Protocol PRN Reason: Agitation Last Admin: 09/22/18 09:15 Dose: 5 mg/hr, 5 mls/hr Ipratropium Ira (Atrovent) 0.5 mg IH [id number] PRN PRN Reason: Shortness of Breath Levalbuterol HCl (Xopenex) 0.63 mg IH Q2H PRN PRN Reason: sob/wheezing Losartan Potassium (Cozaar) 50 mg PO DAILY [facility] Last Admin: 09/20/18 12:21 Dose: 50 mg Methylprednisolone (Solu-Medrol) 60 mg IVP Q8 [facility] Last Admin: 09/22/18 06:32 Dose: 60 mg Montelukast Sodium (Singulair) 10 mg PO HS [facility] Last Admin: 09/21/18 21:34 Dose: 10 mg Pantoprazole Sodium (Protonix Inj) 40 mg IVP DAILY [facility] Last Admin: 09/22/18 12:20 Dose: 40 mg Results - Vital Signs Recent Vital Signs: Last Vital Signs Temp 98.2 F 09/21/18 16:00 Pulse 88 09/22/18 12:42 Resp 79 H 09/22/18 05:33 BP 91/50 L 09/22/18 12:42 Pulse Ox 96 09/22/18 12:42 - Labs Result Diagrams: 09/22/18 06:30 09/22/18 06:30 Labs: Laboratory Results - last 24 hr 09/21/18 09/21/18 09/22/18 09:05 18:06 01:02 WBC RBC Hgb Hct MCV MCH MCHC RDW Plt Count MPV D-Dimer, Quantitative pCO2 45 44 47 H pO2 123.0 H 98.0 138.0 H HCO3 21.1 20.2 L 20.1 L ABG pH 7.28 L 7.27 L 7.24 L ABG Total CO2 22.5 21.6 L 21.5 L ABG O2 Saturation 99.5 H 99.1 H 99.7 H ABG O2 Content 18.4 18.7 ABG Base Excess -5.6 L -6.6 L -7.3 L ABG Hemoglobin 13.4 13.6 ABG Carboxyhemoglobin 1.6 H 1.7 H POC ABG HHb (Measured) 0.5 0.3 ABG Methemoglobin 1.1 1.2 ABG O2 Capacity 18.5 18.8 ABG Potassium 4.6 Hgb O2 Saturation 96.7 96.8 Sodium 144.0 Chloride 113.0 H Glucose 125 H Lactate 1.4 Mechanical Rate 50 FiO2 40.0 40.0 40.0 Tidal Volume PEEP Potassium Carbon Dioxide Anion Gap BUN Creatinine Est GFR ( Amer) Est GFR (Non-Af Amer) Random Glucose Calcium Total Bilirubin AST ALT Alkaline Phosphatase Total Protein Albumin Globulin Albumin/Globulin Ratio Arterial Blood Potassium 4.6 09/22/18 09/22/18 09/22/18 01:29 05:45 06:30 WBC 17.5 H RBC 4.30 Hgb 13.0 L Hct 42.7 MCV 99.3 D MCH 30.2 MCHC 30.4 L RDW 12.9 Plt Count 182 MPV 9.5 D-Dimer, Quantitative 274 H pCO2 56 H pO2 110.0 H HCO3 20.0 L ABG pH 7.16 L* ABG Total CO2 21.7 L ABG O2 Saturation 99.4 H ABG O2 Content 19.4 ABG Base Excess -9.2 L ABG Hemoglobin 14.2 ABG Carboxyhemoglobin 1.9 H POC ABG HHb (Measured) 0.6 ABG Methemoglobin 0.8 ABG O2 Capacity 19.5 ABG Potassium Hgb O2 Saturation 96.7 Sodium Chloride Glucose Lactate Mechanical Rate FiO2 40.0 Tidal Volume PEEP Potassium Carbon Dioxide Anion Gap BUN Creatinine Est GFR ( Amer) Est GFR (Non-Af Amer) Random Glucose Calcium Total Bilirubin AST ALT Alkaline Phosphatase Total Protein Albumin Globulin Albumin/Globulin Ratio Arterial Blood Potassium 09/22/18 09/22/18 09/22/18 06:30 10:00 11:20 WBC RBC Hgb Hct MCV MCH MCHC RDW Plt Count MPV D-Dimer, Quantitative pCO2 68 H 50 H pO2 107.0 H 187.0 H HCO3 22.1 21.9 ABG pH 7.12 L* 7.25 L ABG Total CO2 24.2 23.4 ABG O2 Saturation 99.1 H 99.9 H ABG O2 Content 16.5 ABG Base Excess -8.3 L -5.5 L ABG Hemoglobin 11.7 ABG Carboxyhemoglobin 1.5 POC ABG HHb (Measured) 0.1 ABG Methemoglobin 0.7 ABG O2 Capacity 16.5 ABG Potassium 4.9 Hgb O2 Saturation 97.6 Sodium 149 H 147.0 Chloride 118 H 116.0 H Glucose 136 H Lactate 1.0 Mechanical Rate 16 FiO2 50.0 50.0 Tidal Volume 340 PEEP 5 Potassium 5.9 H* Carbon Dioxide 25 Anion Gap 12 BUN 52 H Creatinine 1.8 H Est GFR ( Amer) 45 Est GFR (Non-Af Amer) 37 Random Glucose 135 H Calcium 9.1 Total Bilirubin 0.6 AST 60 H D ALT 44 Alkaline Phosphatase 57 Total Protein 6.9 Albumin 4.0 Globulin 2.9 Albumin/Globulin Ratio 1.4 Arterial Blood Potassium 4.9
[2018-09-22 15:40] LABS: ARTERIAL BLOOD GAS HCO3 19.7 mmol/L (21-28); ARTERIAL BLOOD GAS HEMOGLOBIN 11.3 g/dL (11.7-17.4); ARTERIAL BLOOD GAS O2 CAPACITY 15.8 mL/dl (16-24); ARTERIAL BLOOD GAS O2 CONTENT 15.8 ML/dl (15-23); ARTERIAL BLOOD GAS O2 SAT 100.3 % (95-98); ARTERIAL BLOOD GAS PCO2 40 mm/Hg (35-45); ARTERIAL BLOOD GAS TCO2 20.9 mmol.L (22-28)
--- NOTE | 2018-09-22 15:47 | CP.CCUPN ---
<Sidney Vance - Last Filed: 09/22/18 15:47> CCU Subjective - Physician Review Subjective (Free Text): Sidney Vance DO, PGY1. ICU progress note for Dr Holland Patient seen and examined at bedside. He is on BiPAP in moderate respiratory distress. He is confused, agitated. Overnight, he was agitated, pulling off lines, mumbling, with fever of 100.5 Tylenol was given, restraints applied and went back to BiPAP. CCU Objective - Vital Signs / Intake & Output Vital Signs (Last 4 hours): Vital Signs Pulse BP Pulse Ox 09/22/18 12:42 88 91/50 L 96 09/22/18 12:41 88 91/50 L 96 09/22/18 12:40 87 90/50 L 96 09/22/18 12:39 87 93/51 L 96 09/22/18 12:38 87 88/53 L 96 09/22/18 12:37 88 88/51 L 96 09/22/18 12:36 87 89/49 L 96 09/22/18 12:35 87 91/50 L 96 09/22/18 12:34 87 90/51 L 96 09/22/18 12:33 87 93/52 L 96 09/22/18 12:32 87 89/52 L 96 09/22/18 12:31 87 92/52 L 96 09/22/18 12:30 89 92/52 L 97 09/22/18 12:29 87 79/47 L 96 09/22/18 12:28 87 90/52 L 96 09/22/18 12:27 86 89/51 L 96 09/22/18 12:26 87 92/51 L 96 09/22/18 12:25 88 91/51 L 96 09/22/18 12:24 87 90/52 L 96 09/22/18 12:23 87 88/53 L 96 09/22/18 12:22 87 87/52 L 96 09/22/18 12:21 87 91/49 L 96 09/22/18 12:20 87 92/49 L 96 09/22/18 12:19 86 87/51 L 97 09/22/18 12:18 86 87/51 L 97 09/22/18 11:57 83/44 L 09/22/18 11:56 86 83/47 L 97 09/22/18 11:55 86 82/47 L 97 09/22/18 11:54 86 82/47 L 97 09/22/18 11:53 85 82/46 L 97 09/22/18 11:52 86 83/45 L 97 09/22/18 11:51 86 84/46 L 97 09/22/18 11:50 86 83/47 L 97 09/22/18 11:49 86 81/47 L 97 09/22/18 11:48 86 82/46 L 97 Intake and Output (Last 8hrs): Intake & Output 09/22/18 09/22/18 09/22/18 06:59 14:59 22:59 Intake Total 1348 130 Output Total 1999 Balance -652 130 Intake: IV 1258 130 Crdizem drip 100 IVF 900 IVPB 200 Oral 90 Output: Urine 2000 Urethral ([place]) 1300 Urine, Voided 200 Other: # Voids Urine, Voided 1 - Physical Exam Head: Positive for: Atraumatic, Normocephalic Pupils: Positive for: PERRL Extroacular Muscles: Positive for: EOMI Conjunctiva: Positive for: Normal Mouth: Positive for: Moist Mucous Membranes Neck: Positive for: Normal Range of Motion Respiratory/Chest: Positive for: Wheezes (improving wheezes b/l) Cardiovascular: Positive for: Regular Rate and Rhythm, Normal S1, S2. Negative for: Murmurs Abdomen: Negative for: Tenderness, Distention, Peritoneal Signs Back: Positive for: Normal Inspection Upper Extremity: Positive for: Normal Inspection. Negative for: Cyanosis, Edema Lower Extremity: Positive for: Normal Inspection. Negative for: Edema Neurological: Positive for: GCS=15, CN II-XII Intact, Speech Normal Skin: Positive for: Warm, Dry, Normal Color. Negative for: Rashes Psychiatric: Positive for: Alert, Oriented x 3, Normal Insight, Normal Concentration - Medications Active Medications: Active Medications Generic Name Dose Route Start Last Admin Trade Name Freq PRN Reason Stop Dose Admin Albuterol/Ipratropium 3 ml 09/22/18 09:15 09/22/18 15:15 Duoneb 3 Mg/0.5 Mg (3 Ml) Ud IH 3 ml Q2H BLANK Administration Allopurinol 300 mg 09/20/18 11:00 09/20/18 12:23 Zyloprim PO 300 mg DAILY BLANK Administration Arformoterol Tartrate 15 mcg 09/20/18 20:00 09/22/18 07:31 Brovana IH 15 mcg [id number] BLANK Administration Budesonide 1 mg 09/20/18 20:00 09/22/18 07:31 Pulmicort Respules IH 1 mg [id number] BLANK Administration Heparin Sodium (Porcine) 5,000 units 09/22/18 09:15 09/22/18 12:20 Heparin SC 5,000 units Q8 BLANK Administration Protocol Doxycycline Hyclate 100 mg/ 100 mls @ 100 mls/hr 09/21/18 10:00 09/22/18 12:17 Sodium Chloride IVPB 100 mls/hr Q12 BLANK Administration Protocol Acetaminophen 1,000 mg in 100 mls @ 400 mls/hr 09/22/18 06:01 09/22/18 06:32 Ofirmev IVPB 09/24/18 06:02 400 mls/hr Q6H PRN Administration Temperature > 100.4 Propofol 1,000 mg in 100 mls @ 3.677 mls/hr 09/22/18 08:26 09/22/18 09:00 Diprivan IV 10 mcg/kg/min .Q24H PRN 3.677 mls/hr TITRATE PER MD ORDER Administration Protocol 10 MCG/KG/MIN Fentanyl Citrate 1,000 mcg in 100 mls @ 10 mls/hr 09/22/18 08:36 09/22/18 09:30 Fentanyl Citrate/Sodium Chloride 1 Mg/100 Ml IV 100 mcg/hr .Q10H PRN 10 mls/hr TITRATE PER MD ORDER Administration Protocol 100 MCG/HR Midazolam 100 mg/100ml in NS 100 mg in 100 mls @ 5 mls/hr 09/22/18 08:35 09/22/18 09:15 Midazolam 100 Mg/100ml In Ns IV 5 mg/hr .Q20H PRN 5 mls/hr Agitation Administration Protocol 5 MG/HR Ipratropium [place] 0.5 mg 09/20/18 13:58 Atrovent IH [id number] PRN Shortness of Breath Levalbuterol HCl 0.63 mg 09/21/18 05:30 Xopenex IH Q2H PRN sob/wheezing Losartan Potassium 50 mg 09/20/18 10:45 09/20/18 12:21 Cozaar PO 50 mg DAILY BLANK Administration Methylprednisolone 60 mg 09/20/18 14:00 09/22/18 06:32 Solu-Medrol IVP 60 mg Q8 BLANK Administration Montelukast Sodium 10 mg 09/20/18 22:15 09/21/18 21:34 Singulair PO 10 mg HS BLANK Administration Pantoprazole Sodium 40 mg 09/22/18 10:00 09/22/18 12:20 Protonix Inj IVP 40 mg DAILY BLANK Administration - Patient Studies Lab Studies: Microbiology Studies 09/20/18 03:30 Blood Culture - Preliminary Blood-Venous NO GROWTH AFTER 48 HOURS 09/20/18 03:12 Blood Culture - Preliminary Blood-Venous NO GROWTH AFTER 48 HOURS Lab Studies 09/22/18 09/22/18 09/22/18 Range/Units 11:20 10:00 06:30 WBC (4.5-11.0) 10^3/uL RBC (3.5-6.1) 10^6/uL Hgb (14.0-18.0) g/dL Hct (42.0-52.0) % MCV (80.0-105.0) fl MCH (25.0-35.0) pg MCHC (31.0-37.0) g/dl RDW (11.5-14.5) % Plt Count (120.0-450.0) 10^3/uL MPV (7.0-11.0) fl D-Dimer, Quantitative (0-243) ng/mlDDU pCO2 50 H 68 H (35-45) mm/Hg pO2 187.0 H 107.0 H (80-100) mm/Hg HCO3 21.9 22.1 (21-28) mmol/L ABG pH 7.25 L 7.12 L* (7.35-7.45) ABG Total CO2 23.4 24.2 (22-28) mmol.L ABG O2 Saturation 99.9 H 99.1 H (95-98) % ABG O2 Content 16.5 (15-23) ML/dl ABG Base Excess -5.5 L -8.3 L (-2.0-3.0) mmol/L ABG Hemoglobin 11.7 (11.7-17.4) g/dL ABG Carboxyhemoglobin 1.5 (0.5-1.5) % POC ABG HHb (Measured) 0.1 (0-5) % ABG Methemoglobin 0.7 (0.0-3.0) % ABG O2 Capacity 16.5 (16-24) mL/dl ABG Potassium 4.9 (3.6-5.2) mmol/L Hgb O2 Saturation 97.6 (95.0-98.0) % Sodium 147.0 149 H (132-148) mmol/L Chloride 116.0 H 118 H (98-107) mmol/L Glucose 136 H (75-110) mg/dl Lactate 1.0 (0.7-2.1) mmol/L Mechanical Rate 16 FiO2 50.0 50.0 % Tidal Volume 340 PEEP 5 Potassium 5.9 H* (3.6-5.0) mmol/L Carbon Dioxide 25 (21-33) mmol/L Anion Gap 12 (10-20) BUN 52 H (7-21) mg/dL Creatinine 1.8 H (0.8-1.5) mg/dl Est GFR ( Amer) 45 Est GFR (Non-Af Amer) 37 Random Glucose 135 H (70-110) mg/dL Calcium 9.1 (8.4-10.5) mg/dL Total Bilirubin 0.6 (0.2-1.3) mg/dL AST 60 H D (17-59) U/L ALT 44 (7-56) U/L Alkaline Phosphatase 57 (38-126) U/L Total Protein 6.9 (5.8-8.3) g/dL Albumin 4.0 (3.0-4.8) g/dL Globulin 2.9 gm/dL Albumin/Globulin Ratio 1.4 (1.1-1.8) Arterial Blood Potassium 4.9 (3.6-5.2) mmol/L 09/22/18 09/22/18 09/22/18 Range/Units 06:30 05:45 01:29 WBC 17.5 H (4.5-11.0) 10^3/uL RBC 4.30 (3.5-6.1) 10^6/uL Hgb 13.0 L (14.0-18.0) g/dL Hct 42.7 (42.0-52.0) % MCV 99.3 D (80.0-105.0) fl MCH 30.2 (25.0-35.0) pg MCHC 30.4 L (31.0-37.0) g/dl RDW 12.9 (11.5-14.5) % Plt Count 182 (120.0-450.0) 10^3/uL MPV 9.5 (7.0-11.0) fl D-Dimer, Quantitative 274 H (0-243) ng/mlDDU pCO2 56 H (35-45) mm/Hg pO2 110.0 H (80-100) mm/Hg HCO3 20.0 L (21-28) mmol/L ABG pH 7.16 L* (7.35-7.45) ABG Total CO2 21.7 L (22-28) mmol.L ABG O2 Saturation 99.4 H (95-98) % ABG O2 Content 19.4 (15-23) ML/dl ABG Base Excess -9.2 L (-2.0-3.0) mmol/L ABG Hemoglobin 14.2 (11.7-17.4) g/dL ABG Carboxyhemoglobin 1.9 H (0.5-1.5) % POC ABG HHb (Measured) 0.6 (0-5) % ABG Methemoglobin 0.8 (0.0-3.0) % ABG O2 Capacity 19.5 (16-24) mL/dl ABG Potassium (3.6-5.2) mmol/L Hgb O2 Saturation 96.7 (95.0-98.0) % Sodium (132-148) mmol/L Chloride (98-107) mmol/L Glucose (75-110) mg/dl Lactate (0.7-2.1) mmol/L Mechanical Rate FiO2 40.0 % Tidal Volume PEEP Potassium (3.6-5.0) mmol/L Carbon Dioxide (21-33) mmol/L Anion Gap (10-20) BUN (7-21) mg/dL Creatinine (0.8-1.5) mg/dl Est GFR ( Amer) Est GFR (Non-Af Amer) Random Glucose (70-110) mg/dL Calcium (8.4-10.5) mg/dL Total Bilirubin (0.2-1.3) mg/dL AST (17-59) U/L ALT (7-56) U/L Alkaline Phosphatase (38-126) U/L Total Protein (5.8-8.3) g/dL Albumin (3.0-4.8) g/dL Globulin gm/dL Albumin/Globulin Ratio (1.1-1.8) Arterial Blood Potassium (3.6-5.2) mmol/L 09/22/18 09/21/18 09/21/18 Range/Units 01:02 18:06 09:05 WBC (4.5-11.0) 10^3/uL RBC (3.5-6.1) 10^6/uL Hgb (14.0-18.0) g/dL Hct (42.0-52.0) % MCV (80.0-105.0) fl MCH (25.0-35.0) pg MCHC (31.0-37.0) g/dl RDW (11.5-14.5) % Plt Count (120.0-450.0) 10^3/uL MPV (7.0-11.0) fl D-Dimer, Quantitative (0-243) ng/mlDDU pCO2 47 H 44 45 (35-45) mm/Hg pO2 138.0 H 98.0 123.0 H (80-100) mm/Hg HCO3 20.1 L 20.2 L 21.1 (21-28) mmol/L ABG pH 7.24 L 7.27 L 7.28 L (7.35-7.45) ABG Total CO2 21.5 L 21.6 L 22.5 (22-28) mmol.L ABG O2 Saturation 99.7 H 99.1 H 99.5 H (95-98) % ABG O2 Content 18.7 18.4 (15-23) ML/dl ABG Base Excess -7.3 L -6.6 L -5.6 L (-2.0-3.0) mmol/L ABG Hemoglobin 13.6 13.4 (11.7-17.4) g/dL ABG Carboxyhemoglobin 1.7 H 1.6 H (0.5-1.5) % POC ABG HHb (Measured) 0.3 0.5 (0-5) % ABG Methemoglobin 1.2 1.1 (0.0-3.0) % ABG O2 Capacity 18.8 18.5 (16-24) mL/dl ABG Potassium 4.6 (3.6-5.2) mmol/L Hgb O2 Saturation 96.8 96.7 (95.0-98.0) % Sodium 144.0 (132-148) mmol/L Chloride 113.0 H (98-107) mmol/L Glucose 125 H (75-110) mg/dl Lactate 1.4 (0.7-2.1) mmol/L Mechanical Rate 50 FiO2 40.0 40.0 40.0 % Tidal Volume PEEP Potassium (3.6-5.0) mmol/L Carbon Dioxide (21-33) mmol/L Anion Gap (10-20) BUN (7-21) mg/dL Creatinine (0.8-1.5) mg/dl Est GFR ( Amer) Est GFR (Non-Af Amer) Random Glucose (70-110) mg/dL Calcium (8.4-10.5) mg/dL Total Bilirubin (0.2-1.3) mg/dL AST (17-59) U/L ALT (7-56) U/L Alkaline Phosphatase (38-126) U/L Total Protein (5.8-8.3) g/dL Albumin (3.0-4.8) g/dL Globulin gm/dL Albumin/Globulin Ratio (1.1-1.8) Arterial Blood Potassium 4.6 (3.6-5.2) mmol/L Laboratory Results - last 24 hr 09/21/18 09/21/18 09/22/18 09:05 18:06 01:02 WBC RBC Hgb Hct MCV MCH MCHC RDW Plt Count MPV D-Dimer, Quantitative pCO2 45 44 47 H pO2 123.0 H 98.0 138.0 H HCO3 21.1 20.2 L 20.1 L ABG pH 7.28 L 7.27 L 7.24 L ABG Total CO2 22.5 21.6 L 21.5 L ABG O2 Saturation 99.5 H 99.1 H 99.7 H ABG O2 Content 18.4 18.7 ABG Base Excess -5.6 L -6.6 L -7.3 L ABG Hemoglobin 13.4 13.6 ABG Carboxyhemoglobin 1.6 H 1.7 H POC ABG HHb (Measured) 0.5 0.3 ABG Methemoglobin 1.1 1.2 ABG O2 Capacity 18.5 18.8 ABG Potassium 4.6 Hgb O2 Saturation 96.7 96.8 Sodium 144.0 Chloride 113.0 H Glucose 125 H Lactate 1.4 Mechanical Rate 50 FiO2 40.0 40.0 40.0 Tidal Volume PEEP Potassium Carbon Dioxide Anion Gap BUN Creatinine Est GFR ( Amer) Est GFR (Non-Af Amer) Random Glucose Calcium Total Bilirubin AST ALT Alkaline Phosphatase Total Protein Albumin Globulin Albumin/Globulin Ratio Arterial Blood Potassium 4.6 09/22/18 09/22/18 09/22/18 01:29 05:45 06:30 WBC 17.5 H RBC 4.30 Hgb 13.0 L Hct 42.7 MCV 99.3 D MCH 30.2 MCHC 30.4 L RDW 12.9 Plt Count 182 MPV 9.5 D-Dimer, Quantitative 274 H pCO2 56 H pO2 110.0 H HCO3 20.0 L ABG pH 7.16 L* ABG Total CO2 21.7 L ABG O2 Saturation 99.4 H ABG O2 Content 19.4 ABG Base Excess -9.2 L ABG Hemoglobin 14.2 ABG Carboxyhemoglobin 1.9 H POC ABG HHb (Measured) 0.6 ABG Methemoglobin 0.8 ABG O2 Capacity 19.5 ABG Potassium Hgb O2 Saturation 96.7 Sodium Chloride Glucose Lactate Mechanical Rate FiO2 40.0 Tidal Volume PEEP Potassium Carbon Dioxide Anion Gap BUN Creatinine Est GFR ( Amer) Est GFR (Non-Af Amer) Random Glucose Calcium Total Bilirubin AST ALT Alkaline Phosphatase Total Protein Albumin Globulin Albumin/Globulin Ratio Arterial Blood Potassium 09/22/18 09/22/18 09/22/18 06:30 10:00 11:20 WBC RBC Hgb Hct MCV MCH MCHC RDW Plt Count MPV D-Dimer, Quantitative pCO2 68 H 50 H pO2 107.0 H 187.0 H HCO3 22.1 21.9 ABG pH 7.12 L* 7.25 L ABG Total CO2 24.2 23.4 ABG O2 Saturation 99.1 H 99.9 H ABG O2 Content 16.5 ABG Base Excess -8.3 L -5.5 L ABG Hemoglobin 11.7 ABG Carboxyhemoglobin 1.5 POC ABG HHb (Measured) 0.1 ABG Methemoglobin 0.7 ABG O2 Capacity 16.5 ABG Potassium 4.9 Hgb O2 Saturation 97.6 Sodium 149 H 147.0 Chloride 118 H 116.0 H Glucose 136 H Lactate 1.0 Mechanical Rate 16 FiO2 50.0 50.0 Tidal Volume 340 PEEP 5 Potassium 5.9 H* Carbon Dioxide 25 Anion Gap 12 BUN 52 H Creatinine 1.8 H Est GFR ( Amer) 45 Est GFR (Non-Af Amer) 37 Random Glucose 135 H Calcium 9.1 Total Bilirubin 0.6 AST 60 H D ALT 44 Alkaline Phosphatase 57 Total Protein 6.9 Albumin 4.0 Globulin 2.9 Albumin/Globulin Ratio 1.4 Arterial Blood Potassium 4.9 Critical Care Progress Note - Nutrition Nutrition: Nutrition Category Date Time Status NPO Diet [DIET] Diets 09/22/18 Lunch Ordered Assessment/Plan - Assessment and Plan (Free Text) Assessment: 73 y/o male with PMH of COPD, asthma admitted to ICU for management of asthma exacerbation complicated with allergic reaction likely due to zithromax administration. He is back on BiPAP after short trial of high flow. Plan: Neuro: -Agitated, confused, in restraints -maintain normothermia CVS: -sinus tachycardia improved with Diltiazem use -h/o HTN, hold coozar -BP monitor -trop negative x2 Resp: -Hypercapnic resiratory failure -AB.16/56/110/20 -sedation, intubation -continue brovana, budesonide, xopenex, doxycycline -continue solu-medrol 60mg q8 -continue Heliox 80/20 -continue benadryl 50mg iv -CXR: no acute infiltrate -maintain O2 sat >90% -COPD exacerbation with possible allergic reaction to zithromax, SOB but no angioedema -pulmonology following, Dr Coughlin Renal: -AMPARO -BUN/Cr 52/1.8 with Hyperkalemia -continue LR -maintain euvolemia -I&O 3310/3100 in last 24 hour ID: -leukocytosis -continue doxycycline -ID consult GI: -transaminitis AST/ALT 60/44 -continue protonix MSK: -h/o gouty arthritis -hold colchicine, allopurinol Prophylaxis: - GI ppx: Protonix 40 - DVT ppx: heparin 5000U SQ NPO Dispo: Sedation, intubation, steroid, bronchodilator, abx Case reviewed and plan discussed with Dr. Veronica Vance, DO PGY1 <Tomas Martin - Last Filed: 09/22/18 16:25> CCU Objective - Vital Signs / Intake & Output Vital Signs (Last 4 hours): Vital Signs Pulse BP Pulse Ox 09/22/18 16:20 98/54 L 09/22/18 16:19 85 94/55 L 09/22/18 16:18 85 97/54 L 09/22/18 16:17 86 95/56 L 09/22/18 16:16 87 97 09/22/18 16:15 86 96/53 L 97 09/22/18 16:14 86 94/54 L 97 09/22/18 16:13 86 96/53 L 97 09/22/18 16:12 87 97/55 L 97 09/22/18 16:11 97/53 L 09/22/18 16:10 85 96/54 L 09/22/18 16:09 87 96/57 L 97 09/22/18 16:08 86 96/55 L 97 09/22/18 16:07 86 95/56 L 97 09/22/18 16:06 86 96/57 L 97 09/22/18 16:05 85 96/53 L 97 09/22/18 16:04 86 95/54 L 97 09/22/18 16:03 86 95/56 L 97 09/22/18 16:02 86 97/54 L 97 09/22/18 16:01 86 95/56 L 96 09/22/18 16:00 87 98/54 L 96 09/22/18 15:59 86 98/56 L 96 09/22/18 15:58 87 96/54 L 96 09/22/18 15:57 95/56 L 09/22/18 15:56 87 97/55 L 09/22/18 15:55 86 97/53 L 09/22/18 15:54 85 97 09/22/18 15:53 97/56 L 09/22/18 12:42 88 91/50 L 96 09/22/18 12:41 88 91/50 L 96 09/22/18 12:40 87 90/50 L 96 09/22/18 12:39 87 93/51 L 96 09/22/18 12:38 87 88/53 L 96 09/22/18 12:37 88 88/51 L 96 09/22/18 12:36 87 89/49 L 96 09/22/18 12:35 87 91/50 L 96 09/22/18 12:34 87 90/51 L 96 09/22/18 12:33 87 93/52 L 96 09/22/18 12:32 87 89/52 L 96 09/22/18 12:31 87 92/52 L 96 09/22/18 12:30 89 92/52 L 97 09/22/18 12:29 87 79/47 L 96 09/22/18 12:28 87 90/52 L 96 09/22/18 12:27 86 89/51 L 96 09/22/18 12:26 87 92/51 L 96 Intake and Output (Last 8hrs): Intake & Output 09/22/18 09/22/18 09/22/18 06:59 14:59 22:59 Intake Total 1348 130 Output Total 1999 Balance -652 130 Intake: IV 1258 130 Crdizem drip 100 IVF 900 IVPB 200 Oral 90 Output: Urine 2000 Urethral ([place]) 1300 Urine, Voided 200 Other: # Voids Urine, Voided 1 - Medications Active Medications: Active Medications Generic Name Dose Route Start Last Admin Trade Name Freq PRN Reason Stop Dose Admin Albuterol/Ipratropium 3 ml 09/22/18 09:15 09/22/18 15:15 Duoneb 3 Mg/0.5 Mg (3 Ml) Ud IH 3 ml Q2H BLANK Administration Allopurinol 300 mg 09/20/18 11:00 09/20/18 12:23 Zyloprim PO 300 mg DAILY BLANK Administration Arformoterol Tartrate 15 mcg 09/20/18 20:00 09/22/18 07:31 Brovana IH 15 mcg [id number] BLANK Administration Budesonide 1 mg 09/20/18 20:00 09/22/18 07:31 Pulmicort Respules IH 1 mg [id number] BLANK Administration Heparin Sodium (Porcine) 5,000 units 09/22/18 09:15 09/22/18 16:18 Heparin SC Not Given Q8 BLANK Protocol Doxycycline Hyclate 100 mg/ 100 mls @ 100 mls/hr 09/21/18 10:00 09/22/18 12:17 Sodium Chloride IVPB 100 mls/hr Q12 BLANK Administration Protocol Acetaminophen 1,000 mg in 100 mls @ 400 mls/hr 09/22/18 06:01 09/22/18 06:32 Ofirmev IVPB 09/24/18 06:02 400 mls/hr Q6H PRN Administration Temperature > 100.4 Propofol 1,000 mg in 100 mls @ 3.677 mls/hr 09/22/18 08:26 09/22/18 09:00 Diprivan IV 10 mcg/kg/min .Q24H PRN 3.677 mls/hr TITRATE PER MD ORDER Administration Protocol 10 MCG/KG/MIN Fentanyl Citrate 1,000 mcg in 100 mls @ 10 mls/hr 09/22/18 08:36 09/22/18 09:30 Fentanyl Citrate/Sodium Chloride 1 Mg/100 Ml IV 100 mcg/hr .Q10H PRN 10 mls/hr TITRATE PER MD ORDER Administration Protocol 100 MCG/HR Midazolam 100 mg/100ml in NS 100 mg in 100 mls @ 5 mls/hr 09/22/18 08:35 09/22/18 09:15 Midazolam 100 Mg/100ml In Ns IV 5 mg/hr .Q20H PRN 5 mls/hr Agitation Administration Protocol 5 MG/HR Ipratropium [place] 0.5 mg 09/20/18 13:58 Atrovent IH [id number] PRN Shortness of Breath Levalbuterol HCl 0.63 mg 09/21/18 05:30 Xopenex IH Q2H PRN sob/wheezing Losartan Potassium 50 mg 09/20/18 10:45 09/20/18 12:21 Cozaar PO 50 mg DAILY BLANK Administration Methylprednisolone 60 mg 09/20/18 14:00 09/22/18 16:17 Solu-Medrol IVP 60 mg Q8 BLNAK Administration Montelukast Sodium 10 mg 09/20/18 22:15 09/21/18 21:34 Singulair PO 10 mg HS BLANK Administration Pantoprazole Sodium 40 mg 09/22/18 10:00 09/22/18 12:20 Protonix Inj IVP 40 mg DAILY BLANK Administration - Patient Studies Lab Studies: Microbiology Studies 09/20/18 03:30 Blood Culture - Preliminary Blood-Venous NO GROWTH AFTER 48 HOURS 09/20/18 03:12 Blood Culture - Preliminary Blood-Venous NO GROWTH AFTER 48 HOURS Lab Studies 09/22/18 09/22/18 09/22/18 Range/Units 16:16 15:37 11:20 WBC 9.6 D (4.5-11.0) 10^3/uL RBC 3.67 (3.5-6.1) 10^6/uL Hgb 11.2 L (14.0-18.0) g/dL Hct 36.4 L (42.0-52.0) % MCV 99.2 (80.0-105.0) fl MCH 30.5 (25.0-35.0) pg MCHC 30.8 L (31.0-37.0) g/dl RDW 12.8 (11.5-14.5) % Plt Count 132 (120.0-450.0) 10^3/uL MPV 9.6 (7.0-11.0) fl Gran % 95.3 H (50.0-68.0) % Lymph % (Auto) 4.6 L (22.0-35.0) % [place] % (Auto) 0.1 L (1.0-6.0) % Eos % (Auto) 0.0 L (1.5-5.0) % Baso % (Auto) 0.0 (0.0-3.0) % Gran # 9.18 H (1.4-6.5) Lymph # (Auto) 0.4 L (1.2-3.4) [place] # (Auto) 0.0 L (0.1-0.6) Eos # (Auto) 0.0 (0.0-0.7) Baso # (Auto) 0.00 (0.0-2.0) K/mm3 D-Dimer, Quantitative (0-243) ng/mlDDU pCO2 40 50 H (35-45) mm/Hg pO2 155.0 H 187.0 H (80-100) mm/Hg HCO3 19.7 L 21.9 (21-28) mmol/L ABG pH 7.30 L 7.25 L (7.35-7.45) ABG Total CO2 20.9 L 23.4 (22-28) mmol.L ABG O2 Saturation 100.3 H 99.9 H (95-98) % ABG O2 Content 15.8 16.5 (15-23) ML/dl ABG Base Excess -6.3 L -5.5 L (-2.0-3.0) mmol/L ABG Hemoglobin 11.3 L 11.7 (11.7-17.4) g/dL ABG Carboxyhemoglobin 2.0 H 1.5 (0.5-1.5) % POC ABG HHb (Measured) -0.3 L 0.1 (0-5) % ABG Methemoglobin 0.9 0.7 (0.0-3.0) % ABG O2 Capacity 15.8 L 16.5 (16-24) mL/dl ABG Potassium (3.6-5.2) mmol/L Hgb O2 Saturation 97.5 97.6 (95.0-98.0) % Sodium (132-148) mmol/L Chloride (98-107) mmol/L Glucose (75-110) mg/dl Lactate (0.7-2.1) mmol/L Mechanical Rate FiO2 40.0 50.0 % Tidal Volume PEEP Potassium (3.6-5.0) mmol/L Carbon Dioxide (21-33) mmol/L Anion Gap (10-20) BUN (7-21) mg/dL Creatinine (0.8-1.5) mg/dl Est GFR ( Amer) Est GFR (Non-Af Amer) Random Glucose (70-110) mg/dL Calcium (8.4-10.5) mg/dL Total Bilirubin (0.2-1.3) mg/dL AST (17-59) U/L ALT (7-56) U/L Alkaline Phosphatase (38-126) U/L Total Protein (5.8-8.3) g/dL Albumin (3.0-4.8) g/dL Globulin gm/dL Albumin/Globulin Ratio (1.1-1.8) Arterial Blood Potassium (3.6-5.2) mmol/L 09/22/18 09/22/18 09/22/18 Range/Units 10:00 06:30 06:30 WBC 17.5 H (4.5-11.0) 10^3/uL RBC 4.30 (3.5-6.1) 10^6/uL Hgb 13.0 L (14.0-18.0) g/dL Hct 42.7 (42.0-52.0) % MCV 99.3 D (80.0-105.0) fl MCH 30.2 (25.0-35.0) pg MCHC 30.4 L (31.0-37.0) g/dl RDW 12.9 (11.5-14.5) % Plt Count 182 (120.0-450.0) 10^3/uL MPV 9.5 (7.0-11.0) fl Gran % (50.0-68.0) % Lymph % (Auto) (22.0-35.0) % [place] % (Auto) (1.0-6.0) % Eos % (Auto) (1.5-5.0) % Baso % (Auto) (0.0-3.0) % Gran # (1.4-6.5) Lymph # (Auto) (1.2-3.4) [place] # (Auto) (0.1-0.6) Eos # (Auto) (0.0-0.7) Baso # (Auto) (0.0-2.0) K/mm3 D-Dimer, Quantitative (0-243) ng/mlDDU pCO2 68 H (35-45) mm/Hg pO2 107.0 H (80-100) mm/Hg HCO3 22.1 (21-28) mmol/L ABG pH 7.12 L* (7.35-7.45) ABG Total CO2 24.2 (22-28) mmol.L ABG O2 Saturation 99.1 H (95-98) % ABG O2 Content (15-23) ML/dl ABG Base Excess -8.3 L (-2.0-3.0) mmol/L ABG Hemoglobin (11.7-17.4) g/dL ABG Carboxyhemoglobin (0.5-1.5) % POC ABG HHb (Measured) (0-5) % ABG Methemoglobin (0.0-3.0) % ABG O2 Capacity (16-24) mL/dl ABG Potassium 4.9 (3.6-5.2) mmol/L Hgb O2 Saturation (95.0-98.0) % Sodium 147.0 149 H (132-148) mmol/L Chloride 116.0 H 118 H (98-107) mmol/L Glucose 136 H (75-110) mg/dl Lactate 1.0 (0.7-2.1) mmol/L Mechanical Rate 16 FiO2 50.0 % Tidal Volume 340 PEEP 5 Potassium 5.9 H* (3.6-5.0) mmol/L Carbon Dioxide 25 (21-33) mmol/L Anion Gap 12 (10-20) BUN 52 H (7-21) mg/dL Creatinine 1.8 H (0.8-1.5) mg/dl Est GFR ( Amer) 45 Est GFR (Non-Af Amer) 37 Random Glucose 135 H (70-110) mg/dL Calcium 9.1 (8.4-10.5) mg/dL Total Bilirubin 0.6 (0.2-1.3) mg/dL AST 60 H D (17-59) U/L ALT 44 (7-56) U/L Alkaline Phosphatase 57 (38-126) U/L Total Protein 6.9 (5.8-8.3) g/dL Albumin 4.0 (3.0-4.8) g/dL Globulin 2.9 gm/dL Albumin/Globulin Ratio 1.4 (1.1-1.8) Arterial Blood Potassium 4.9 (3.6-5.2) mmol/L 09/22/18 09/22/18 09/22/18 Range/Units 05:45 01:29 01:02 WBC (4.5-11.0) 10^3/uL RBC (3.5-6.1) 10^6/uL Hgb (14.0-18.0) g/dL Hct (42.0-52.0) % MCV (80.0-105.0) fl MCH (25.0-35.0) pg MCHC (31.0-37.0) g/dl RDW (11.5-14.5) % Plt Count (120.0-450.0) 10^3/uL MPV (7.0-11.0) fl Gran % (50.0-68.0) % Lymph % (Auto) (22.0-35.0) % [place] % (Auto) (1.0-6.0) % Eos % (Auto) (1.5-5.0) % Baso % (Auto) (0.0-3.0) % Gran # (1.4-6.5) Lymph # (Auto) (1.2-3.4) [place] # (Auto) (0.1-0.6) Eos # (Auto) (0.0-0.7) Baso # (Auto) (0.0-2.0) K/mm3 D-Dimer, Quantitative 274 H (0-243) ng/mlDDU pCO2 56 H 47 H (35-45) mm/Hg pO2 110.0 H 138.0 H (80-100) mm/Hg HCO3 20.0 L 20.1 L (21-28) mmol/L ABG pH 7.16 L* 7.24 L (7.35-7.45) ABG Total CO2 21.7 L 21.5 L (22-28) mmol.L ABG O2 Saturation 99.4 H 99.7 H (95-98) % ABG O2 Content 19.4 18.7 (15-23) ML/dl ABG Base Excess -9.2 L -7.3 L (-2.0-3.0) mmol/L ABG Hemoglobin 14.2 13.6 (11.7-17.4) g/dL ABG Carboxyhemoglobin 1.9 H 1.7 H (0.5-1.5) % POC ABG HHb (Measured) 0.6 0.3 (0-5) % ABG Methemoglobin 0.8 1.2 (0.0-3.0) % ABG O2 Capacity 19.5 18.8 (16-24) mL/dl ABG Potassium (3.6-5.2) mmol/L Hgb O2 Saturation 96.7 96.8 (95.0-98.0) % Sodium (132-148) mmol/L Chloride (98-107) mmol/L Glucose (75-110) mg/dl Lactate (0.7-2.1) mmol/L Mechanical Rate FiO2 40.0 40.0 % Tidal Volume PEEP Potassium (3.6-5.0) mmol/L Carbon Dioxide (21-33) mmol/L Anion Gap (10-20) BUN (7-21) mg/dL Creatinine (0.8-1.5) mg/dl Est GFR ( Amer) Est GFR (Non-Af Amer) Random Glucose (70-110) mg/dL Calcium (8.4-10.5) mg/dL Total Bilirubin (0.2-1.3) mg/dL AST (17-59) U/L ALT (7-56) U/L Alkaline Phosphatase (38-126) U/L Total Protein (5.8-8.3) g/dL Albumin (3.0-4.8) g/dL Globulin gm/dL Albumin/Globulin Ratio (1.1-1.8) Arterial Blood Potassium (3.6-5.2) mmol/L 09/21/18 09/21/18 Range/Units 18:06 09:05 WBC (4.5-11.0) 10^3/uL RBC (3.5-6.1) 10^6/uL Hgb (14.0-18.0) g/dL Hct (42.0-52.0) % MCV (80.0-105.0) fl MCH (25.0-35.0) pg MCHC (31.0-37.0) g/dl RDW (11.5-14.5) % Plt Count (120.0-450.0) 10^3/uL MPV (7.0-11.0) fl Gran % (50.0-68.0) % Lymph % (Auto) (22.0-35.0) % [place] % (Auto) (1.0-6.0) % Eos % (Auto) (1.5-5.0) % Baso % (Auto) (0.0-3.0) % Gran # (1.4-6.5) Lymph # (Auto) (1.2-3.4) [place] # (Auto) (0.1-0.6) Eos # (Auto) (0.0-0.7) Baso # (Auto) (0.0-2.0) K/mm3 D-Dimer, Quantitative (0-243) ng/mlDDU pCO2 44 45 (35-45) mm/Hg pO2 98.0 123.0 H (80-100) mm/Hg HCO3 20.2 L 21.1 (21-28) mmol/L ABG pH 7.27 L 7.28 L (7.35-7.45) ABG Total CO2 21.6 L 22.5 (22-28) mmol.L ABG O2 Saturation 99.1 H 99.5 H (95-98) % ABG O2 Content 18.4 (15-23) ML/dl ABG Base Excess -6.6 L -5.6 L (-2.0-3.0) mmol/L ABG Hemoglobin 13.4 (11.7-17.4) g/dL ABG Carboxyhemoglobin 1.6 H (0.5-1.5) % POC ABG HHb (Measured) 0.5 (0-5) % ABG Methemoglobin 1.1 (0.0-3.0) % ABG O2 Capacity 18.5 (16-24) mL/dl ABG Potassium 4.6 (3.6-5.2) mmol/L Hgb O2 Saturation 96.7 (95.0-98.0) % Sodium 144.0 (132-148) mmol/L Chloride 113.0 H (98-107) mmol/L Glucose 125 H (75-110) mg/dl Lactate 1.4 (0.7-2.1) mmol/L Mechanical Rate 50 FiO2 40.0 40.0 % Tidal Volume PEEP Potassium (3.6-5.0) mmol/L Carbon Dioxide (21-33) mmol/L Anion Gap (10-20) BUN (7-21) mg/dL Creatinine (0.8-1.5) mg/dl Est GFR ( Amer) Est GFR (Non-Af Amer) Random Glucose (70-110) mg/dL Calcium (8.4-10.5) mg/dL Total Bilirubin (0.2-1.3) mg/dL AST (17-59) U/L ALT (7-56) U/L Alkaline Phosphatase (38-126) U/L Total Protein (5.8-8.3) g/dL Albumin (3.0-4.8) g/dL Globulin gm/dL Albumin/Globulin Ratio (1.1-1.8) Arterial Blood Potassium 4.6 (3.6-5.2) mmol/L Laboratory Results - last 24 hr 09/21/18 09/21/18 09/22/18 09:05 18:06 01:02 WBC RBC Hgb Hct MCV MCH MCHC RDW Plt Count MPV Gran % Lymph % (Auto) [place] % (Auto) Eos % (Auto) Baso % (Auto) Gran # Lymph # (Auto) [place] # (Auto) Eos # (Auto) Baso # (Auto) D-Dimer, Quantitative pCO2 45 44 47 H pO2 123.0 H 98.0 138.0 H HCO3 21.1 20.2 L 20.1 L ABG pH 7.28 L 7.27 L 7.24 L ABG Total CO2 22.5 21.6 L 21.5 L ABG O2 Saturation 99.5 H 99.1 H 99.7 H ABG O2 Content 18.4 18.7 ABG Base Excess -5.6 L -6.6 L -7.3 L ABG Hemoglobin 13.4 13.6 ABG Carboxyhemoglobin 1.6 H 1.7 H POC ABG HHb (Measured) 0.5 0.3 ABG Methemoglobin 1.1 1.2 ABG O2 Capacity 18.5 18.8 ABG Potassium 4.6 Hgb O2 Saturation 96.7 96.8 Sodium 144.0 Chloride 113.0 H Glucose 125 H Lactate 1.4 Mechanical Rate 50 FiO2 40.0 40.0 40.0 Tidal Volume PEEP Potassium Carbon Dioxide Anion Gap BUN Creatinine Est GFR ( Amer) Est GFR (Non-Af Amer) Random Glucose Calcium Total Bilirubin AST ALT Alkaline Phosphatase Total Protein Albumin Globulin Albumin/Globulin Ratio Arterial Blood Potassium 4.6 09/22/18 09/22/18 09/22/18 01:29 05:45 06:30 WBC 17.5 H RBC 4.30 Hgb 13.0 L Hct 42.7 MCV 99.3 D MCH 30.2 MCHC 30.4 L RDW 12.9 Plt Count 182 MPV 9.5 Gran % Lymph % (Auto) [place] % (Auto) Eos % (Auto) Baso % (Auto) Gran # Lymph # (Auto) [place] # (Auto) Eos # (Auto) Baso # (Auto) D-Dimer, Quantitative 274 H pCO2 56 H pO2 110.0 H HCO3 20.0 L ABG pH 7.16 L* ABG Total CO2 21.7 L ABG O2 Saturation 99.4 H ABG O2 Content 19.4 ABG Base Excess -9.2 L ABG Hemoglobin 14.2 ABG Carboxyhemoglobin 1.9 H POC ABG HHb (Measured) 0.6 ABG Methemoglobin 0.8 ABG O2 Capacity 19.5 ABG Potassium Hgb O2 Saturation 96.7 Sodium Chloride Glucose Lactate Mechanical Rate FiO2 40.0 Tidal Volume PEEP Potassium Carbon Dioxide Anion Gap BUN Creatinine Est GFR ( Amer) Est GFR (Non-Af Amer) Random Glucose Calcium Total Bilirubin AST ALT Alkaline Phosphatase Total Protein Albumin Globulin Albumin/Globulin Ratio Arterial Blood Potassium 09/22/18 09/22/18 09/22/18 06:30 10:00 11:20 WBC RBC Hgb Hct MCV MCH MCHC RDW Plt Count MPV Gran % Lymph % (Auto) [place] % (Auto) Eos % (Auto) Baso % (Auto) Gran # Lymph # (Auto) [place] # (Auto) Eos # (Auto) Baso # (Auto) D-Dimer, Quantitative pCO2 68 H 50 H pO2 107.0 H 187.0 H HCO3 22.1 21.9 ABG pH 7.12 L* 7.25 L ABG Total CO2 24.2 23.4 ABG O2 Saturation 99.1 H 99.9 H ABG O2 Content 16.5 ABG Base Excess -8.3 L -5.5 L ABG Hemoglobin 11.7 ABG Carboxyhemoglobin 1.5 POC ABG HHb (Measured) 0.1 ABG Methemoglobin 0.7 ABG O2 Capacity 16.5 ABG Potassium 4.9 Hgb O2 Saturation 97.6 Sodium 149 H 147.0 Chloride 118 H 116.0 H Glucose 136 H Lactate 1.0 Mechanical Rate 16 FiO2 50.0 50.0 Tidal Volume 340 PEEP 5 Potassium 5.9 H* Carbon Dioxide 25 Anion Gap 12 BUN 52 H Creatinine 1.8 H Est GFR ( Amer) 45 Est GFR (Non-Af Amer) 37 Random Glucose 135 H Calcium 9.1 Total Bilirubin 0.6 AST 60 H D ALT 44 Alkaline Phosphatase 57 Total Protein 6.9 Albumin 4.0 Globulin 2.9 Albumin/Globulin Ratio 1.4 Arterial Blood Potassium 4.9 09/22/18 09/22/18 15:37 16:16 WBC 9.6 D RBC 3.67 Hgb 11.2 L Hct 36.4 L MCV 99.2 MCH 30.5 MCHC 30.8 L RDW 12.8 Plt Count 132 MPV 9.6 Gran % 95.3 H Lymph % (Auto) 4.6 L [place] % (Auto) 0.1 L Eos % (Auto) 0.0 L Baso % (Auto) 0.0 Gran # 9.18 H Lymph # (Auto) 0.4 L [place] # (Auto) 0.0 L Eos # (Auto) 0.0 Baso # (Auto) 0.00 D-Dimer, Quantitative pCO2 40 pO2 155.0 H HCO3 19.7 L ABG pH 7.30 L ABG Total CO2 20.9 L ABG O2 Saturation 100.3 H ABG O2 Content 15.8 ABG Base Excess -6.3 L ABG Hemoglobin 11.3 L ABG Carboxyhemoglobin 2.0 H POC ABG HHb (Measured) -0.3 L ABG Methemoglobin 0.9 ABG O2 Capacity 15.8 L ABG Potassium Hgb O2 Saturation 97.5 Sodium Chloride Glucose Lactate Mechanical Rate FiO2 40.0 Tidal Volume PEEP Potassium Carbon Dioxide Anion Gap BUN Creatinine Est GFR ( Amer) Est GFR (Non-Af Amer) Random Glucose Calcium Total Bilirubin AST ALT Alkaline Phosphatase Total Protein Albumin Globulin Albumin/Globulin Ratio Arterial Blood Potassium Critical Care Progress Note - Nutrition Nutrition: Nutrition Category Date Time Status NPO Diet [DIET] Diets 09/22/18 Lunch Ordered Attending/Attestation - Attestation I have personally seen and examined this patient.: Yes I have fully participated in the care of the patient.: Yes I have reviewed all pertinent clinical information: Yes Notes (Text): 09/22/18 16:[address] Martin note
[2018-09-22 16:21] LABS: GRAN # 9.18 (1.4-6.5); GRAN % 95.3 % (50.0-68.0); HEMOGLOBIN 11.2 g/dL (14.0-18.0); LYMPH # 0.4 (1.2-3.4); LYMPH % 4.6 % (22.0-35.0); MEAN CELL VOLUME 99.2 fl (80.0-105.0); MEAN CORPUSCULAR HEMOGLOBIN 30.5 pg (25.0-35.0); MEAN CORPUSCULAR HGB CONC 30.8 g/dl (31.0-37.0); MEAN PLATELET VOLUME 9.6 fl (7.0-11.0); MONO % 0.1 % (1.0-6.0); RBC 3.67 10^6/uL (3.5-6.1); RED CELL DISTRIBUTION WIDTH 12.8 % (11.5-14.5); WHITE BLOOD COUNT 9.6 10^3/uL (4.5-11.0)
[2018-09-22 16:34] LABS: ALB/GLOB RATIO 1.2 (1.1-1.8); CALCIUM 7.8 mg/dL (8.4-10.5)
[2018-09-22] MEDS: Levalbuterol 0.63 MG/3 ML Inhal Soln UD IH PRN (19:39)
--- NOTE | 2018-09-22 20:32 | PN ---
DATE: 09/22/2018 PULMONARY CRITICAL CARE PROGRESS NOTE REFERRING PHYSICIAN: Mary Roper MD SUBJECTIVE: Overnight events noted. End up with respiratory failure, requiring intubation after failing BiPAP/high-flow nasal cannula. Has a known history of severe lung disease. Presently, he is intubated, sedated and paralyzed. There is not much ET tube secretion. No hemoptysis or emesis. No hematuria. No leg swelling reported. OBJECTIVE: GENERAL: Paralyzed, intubated. VITAL SIGNS: Temperature is 98, heart rate is 88, respiratory rate is 12, blood pressure 91/50, pulse ox 96% on 40% oxygen on ventilator. HEENT: Moist mucous membrane. ET tube secretion. NECK: Supple. LUNGS: Have bilateral inspiratory/expiratory wheezing. HEART: S1 and S2. ABDOMEN: Soft, nontender. No organomegaly. EXTREMITIES: There is no edema. NEUROLOGICAL: Intubated, sedated and paralyzed. MEDICATIONS: He is on Atrovent 0.5 mg every 6 hours p.r.n., Brovana inhaled twice a day, Cardizem IV drip, Cozaar 50 mg daily, Diprivan drip, also on doxycycline 100 mg twice a day, DuoNeb every 2 hours, fentanyl is onboard, heparin 5000 subcu every 8 hours, receiving mL per hour, Tylenol p.r.n. basis, Pulmicort inhaled twice a day, Singulair 15 mg every 8 hours, Xopenex 0.63 every 2 hours p.r.n., allopurinol 300 mg daily. LABORATORY DATA: Shows hemoglobin 13, hematocrit 42.7, WBC 17,000, platelet count is 182. D-dimer is 274. Blood gases this morning show pH is 7.25, pCO2 is 50, O2 is 187, this on 50% oxygen on ventilator. Microbiology: Blood culture has been negative. Chest x-ray shows no active disease. Had a CT scan of the chest done early this year, which shows clear lung, no significant disease. 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 I had a long discussion with Dr. Roper. I also spoke to Dr. Martin, the embossing machine tender. We will continue ventilation, may discontinue paralytic agent, but continue under sedation. Follow up arterial blood gas, chest x-ray, complete blood cell count, comprehensive metabolic profile in the morning. Hopefully next day or so, we should be able to extubate him. Gastric and deep venous thrombosis prophylaxis. Critical care time spent more than 35 minutes. Thank you and we will follow with you. Morgan Coughlin MD
[2018-09-22 21:29] LABS: URINE BILIRUBIN NEGATIVE (NEGATIVE); URINE BLOOD LARGE (NEGATIVE); URINE GLUCOSE (UA) NEGATIVE (NEGATIVE); URINE LEUKOCYTE ESTERASE TRACE Leu/uL (NEGATIVE); URINE PROTEIN NEGATIVE mg/dL (<30 mg/dL); URINE UROBILINOGEN 0.2 E.U./dL (<1 E.U./dL)
[2018-09-22 21:33] LABS: URINE APPEARANCE SL CLOUDY (CLEAR); URINE COLOR YELLOW (YELLOW)
[2018-09-22 22:14] LABS: URINE BACTERIA MOD (NEG); URINE URIC ACID CRYSTALS FEW /hpf
[2018-09-23] MEDS: Lactated Ringer's 1,000 ML IV SCH ×3 (00:31→22:50)
[2018-09-23] MEDS: Albuterol-Ipratrop 3 mg / 0.5 (3 ml) UD IH SCH ×4 (01:05→19:58)
[2018-09-23] MEDS: Midazolam 100 mg/100ml in NS 100 MG/100 ML SOL IV PRN (05:29)
[2018-09-23 06:00] LABS: ARTERIAL BLOOD GAS HCO3 23.2 mmol/L (21-28); ARTERIAL BLOOD GAS HEMOGLOBIN 11.7 g/dL (11.7-17.4); ARTERIAL BLOOD GAS O2 CAPACITY 16.6 mL/dl (16-24); ARTERIAL BLOOD GAS O2 CONTENT 16.5 ML/dl (15-23); ARTERIAL BLOOD GAS O2 SAT 99.6 % (95-98); ARTERIAL BLOOD GAS PCO2 42 mm/Hg (35-45); ARTERIAL BLOOD GAS PH 7.35 (7.35-7.45); ARTERIAL BLOOD GAS TCO2 24.5 mmol.L (22-28)
--- NOTE | 2018-09-23 07:18 | RAD ---
Date of service: 09/23/2018 HISTORY: intubated COMPARISON: Portable chest 09/22/2018, 1:02 p.m.. FINDINGS: LUNGS: Endotracheal and feeding tubes are not significantly changed in position. No active pulmonary disease appreciable. PLEURA: No significant pleural effusion identified, no pneumothorax apparent. CARDIOVASCULAR: Calcific atherosclerotic changes are seen related to the thoracic aorta. Normal cardiac size. No pulmonary vascular congestion. OSSEOUS STRUCTURES: No significant abnormalities. VISUALIZED UPPER ABDOMEN: Normal. OTHER FINDINGS: None. IMPRESSION: No interval acute cardiopulmonary disease. Stable tubes as discussed above.
--- NOTE | 2018-09-23 07:47 | CP.CCUPN ---
CCU Subjective - Physician Review Subjective (Free Text): Sidney Vance DO, PGY1. ICU progress note for Dr Holland Patient seen and examined at bedside. He is sedated/intubated on fentanyl and midazolam. No acute events overnight. CCU Objective - Vital Signs / Intake & Output Vital Signs (Last 4 hours): Vital Signs Temp Pulse BP Pulse Ox 09/23/18 07:20 85 97 09/23/18 07:10 84 97 09/23/18 07:00 126/76 09/23/18 06:59 84 97 09/23/18 06:50 84 97 09/23/18 06:40 84 97 09/23/18 06:30 86 97 09/23/18 06:20 84 97 09/23/18 06:10 84 97 09/23/18 06:00 84 122/70 96 09/23/18 05:50 85 97 09/23/18 05:40 84 97 09/23/18 05:30 87 97 09/23/18 05:20 84 98 09/23/18 05:10 86 98 09/23/18 05:00 115/68 09/23/18 04:59 84 98 09/23/18 04:50 83 98 09/23/18 04:40 83 98 09/23/18 04:30 83 98 09/23/18 04:20 85 98 09/23/18 04:10 87 98 09/23/18 04:00 98.4 F 85 110/62 97 09/23/18 03:50 91 H 98 Intake and Output (Last 8hrs): Intake & Output 09/22/18 09/23/18 09/23/18 22:59 06:59 14:59 Intake Total 2019 2167 Output Total 200 600 Balance 1820 1568 Weight 137 lb 4.8 oz Intake: IV 2019 2168 IVF 1800 IVPB 100 Right Forearm 2000 Right Hand 168 Oral 0 Output: Urine 200 600 Urethral ([place]) 200 600 Other: Voiding Method Indwelling Catheter # Bowel Movements 1 - Physical Exam Physical Exam Limitations: Positive for: Other (intubated/sedated) Head: Positive for: Atraumatic, Normocephalic Pupils: Positive for: PERRL Extroacular Muscles: Positive for: EOMI Conjunctiva: Positive for: Normal Mouth: Positive for: Moist Mucous Membranes Neck: Positive for: Normal Range of Motion Respiratory/Chest: Positive for: Wheezes (improving wheezes b/l), Other (intubated/ sedated ) Cardiovascular: Positive for: Regular Rate and Rhythm, Normal S1, S2. Negative for: Murmurs Abdomen: Negative for: Tenderness, Distention, Peritoneal Signs Back: Positive for: Normal Inspection Upper Extremity: Positive for: Normal Inspection. Negative for: Cyanosis, Edema Lower Extremity: Positive for: Normal Inspection. Negative for: Edema Neurological: Positive for: CN II-XII Intact Skin: Positive for: Warm, Dry, Normal Color. Negative for: Rashes - Medications Active Medications: Active Medications Generic Name Dose Route Start Last Admin Trade Name Freq PRN Reason Stop Dose Admin Albuterol/Ipratropium 3 ml 09/22/18 09:15 09/23/18 01:05 Duoneb 3 Mg/0.5 Mg (3 Ml) Ud IH 3 ml Q2H BLANK Administration Allopurinol 300 mg 09/20/18 11:00 09/20/18 12:23 Zyloprim PO 300 mg DAILY BLANK Administration Arformoterol Tartrate 15 mcg 09/20/18 20:00 09/22/18 19:40 Brovana IH 15 mcg [id number] BLANK Administration Budesonide 1 mg 09/20/18 20:00 09/22/18 19:41 Pulmicort Respules IH 1 mg [id number] BLANK Administration Heparin Sodium (Porcine) 5,000 units 09/22/18 09:15 09/23/18 05:29 Heparin SC 5,000 units Q8 BLANK Administration Protocol Doxycycline Hyclate 100 mg/ 100 mls @ 100 mls/hr 09/21/18 10:00 09/22/18 22:15 Sodium Chloride IVPB 100 mls/hr Q12 BALNK Administration Protocol Acetaminophen 1,000 mg in 100 mls @ 400 mls/hr 09/22/18 06:01 09/22/18 06:32 Ofirmev IVPB 09/24/18 06:02 400 mls/hr Q6H PRN Administration Temperature > 100.4 Propofol 1,000 mg in 100 mls @ 3.677 mls/hr 09/22/18 08:26 09/22/18 09:00 Diprivan IV 10 mcg/kg/min .Q24H PRN 3.677 mls/hr TITRATE PER MD ORDER Administration Protocol 10 MCG/KG/MIN Fentanyl Citrate 1,000 mcg in 100 mls @ 10 mls/hr 09/22/18 08:36 09/22/18 19:00 Fentanyl Citrate/Sodium Chloride 1 Mg/100 Ml IV 10 mcg/hr .Q10H PRN 1 mls/hr TITRATE PER MD ORDER Titration Protocol 100 MCG/HR Midazolam 100 mg/100ml in NS 100 mg in 100 mls @ 5 mls/hr 09/22/18 08:35 09/23/18 05:29 Midazolam 100 Mg/100ml In Ns IV 4 mg/hr .Q20H PRN 4 mls/hr Agitation Administration Protocol 5 MG/HR Lactated Ringer's 1,000 mls @ 150 mls/hr 09/22/18 17:30 09/23/18 00:31 Lactated Ringer's IV 150 mls/hr .[id number] BLANK Administration Meropenem/Sodium Chloride 500 mg in 50 mls @ 12.5 mls/hr 09/23/18 14:00 Merrem Iv 500 Mg/Ns 50 Ml IVPB 10/02/18 14:01 Q8 BLANK Protocol Ipratropium Dema 0.5 mg 09/20/18 13:58 Atrovent IH [id number] PRN Shortness of Breath Levalbuterol HCl 0.63 mg 09/21/18 05:30 09/22/18 19:39 Xopenex IH 0.63 mg Q2H PRN Administration sob/wheezing Losartan Potassium 50 mg 09/20/18 10:45 09/20/18 12:21 Cozaar PO 50 mg DAILY BLANK Administration Methylprednisolone 60 mg 09/20/18 14:00 09/23/18 05:28 Solu-Medrol IVP 60 mg Q8 BLANK Administration Montelukast Sodium 10 mg 09/20/18 22:15 09/22/18 22:16 Singulair PO 10 mg HS BLANK Administration Pantoprazole Sodium 40 mg 09/22/18 10:00 09/22/18 12:20 Protonix Inj IVP 40 mg DAILY BLANK Administration - Patient Studies Lab Studies: Microbiology Studies 09/20/18 03:30 Blood Culture - Preliminary Blood-Venous NO GROWTH AFTER 3 DAYS 09/20/18 03:12 Blood Culture - Preliminary Blood-Venous NO GROWTH AFTER 3 DAYS Lab Studies 09/23/18 09/22/18 09/22/18 Range/Units 05:20 21:25 21:25 WBC (4.5-11.0) 10^3/uL RBC (3.5-6.1) 10^6/uL Hgb (14.0-18.0) g/dL Hct (42.0-52.0) % MCV (80.0-105.0) fl MCH (25.0-35.0) pg MCHC (31.0-37.0) g/dl RDW (11.5-14.5) % Plt Count (120.0-450.0) 10^3/uL MPV (7.0-11.0) fl Gran % (50.0-68.0) % Lymph % (Auto) (22.0-35.0) % [place] % (Auto) (1.0-6.0) % Eos % (Auto) (1.5-5.0) % Baso % (Auto) (0.0-3.0) % Gran # (1.4-6.5) Lymph # (Auto) (1.2-3.4) [place] # (Auto) (0.1-0.6) Eos # (Auto) (0.0-0.7) Baso # (Auto) (0.0-2.0) K/mm3 pCO2 (35-45) mm/Hg pO2 (80-100) mm/Hg HCO3 (21-28) mmol/L ABG pH (7.35-7.45) ABG Total CO2 (22-28) mmol.L ABG O2 Saturation (95-98) % ABG O2 Content (15-23) ML/dl ABG Base Excess (-2.0-3.0) mmol/L ABG Hemoglobin (11.7-17.4) g/dL ABG Carboxyhemoglobin (0.5-1.5) % POC ABG HHb (Measured) (0-5) % ABG Methemoglobin (0.0-3.0) % ABG O2 Capacity (16-24) mL/dl ABG Potassium (3.6-5.2) mmol/L Hgb O2 Saturation (95.0-98.0) % Sodium (132-148) mmol/L Chloride (98-107) mmol/L Glucose (75-110) mg/dl Lactate (0.7-2.1) mmol/L Mechanical Rate FiO2 % Tidal Volume PEEP Potassium (3.6-5.0) mmol/L Carbon Dioxide (21-33) mmol/L Anion Gap (10-20) BUN (7-21) mg/dL Creatinine (0.8-1.5) mg/dl Est GFR ( Amer) Est GFR (Non-Af Amer) Random Glucose (70-110) mg/dL Calcium (8.4-10.5) mg/dL Phosphorus 3.3 (2.5-4.5) mg/dL Magnesium 2.8 H (1.7-2.2) mg/dL Total Bilirubin (0.2-1.3) mg/dL AST (17-59) U/L ALT (7-56) U/L Alkaline Phosphatase (38-126) U/L Total Protein (5.8-8.3) g/dL Albumin (3.0-4.8) g/dL Globulin gm/dL Albumin/Globulin Ratio (1.1-1.8) Arterial Blood Potassium (3.6-5.2) mmol/L Urine Color (YELLOW) Urine Appearance (CLEAR) Urine pH (4.7-8.0) Ur Specific [place] (1.005-1.035) Urine Protein (<30 mg/dL) mg/dL Urine Glucose (UA) (NEGATIVE) mg/dL Urine Ketones (NEGATIVE) mg/dL Urine Blood (NEGATIVE) Urine Nitrate (NEGATIVE) Urine Bilirubin (NEGATIVE) Urine Urobilinogen (<1 E.U./dL) E.U./dL Ur Leukocyte Esterase (NEGATIVE) [place]/uL Urine RBC (0-2) /hpf Urine WBC (0-6) /hpf Ur Epithelial Cells (0-5) /hpf Uric Acid Crystals /hpf Urine Bacteria (NEG) Urine Eosinophils Negative Ur Random Creatinine 82 mg/dL Ur Random Sodium meq/L 09/22/18 09/22/18 09/22/18 Range/Units 21:25 16:35 16:16 WBC (4.5-11.0) 10^3/uL RBC (3.5-6.1) 10^6/uL Hgb (14.0-18.0) g/dL Hct (42.0-52.0) % MCV (80.0-105.0) fl MCH (25.0-35.0) pg MCHC (31.0-37.0) g/dl RDW (11.5-14.5) % Plt Count (120.0-450.0) 10^3/uL MPV (7.0-11.0) fl Gran % (50.0-68.0) % Lymph % (Auto) (22.0-35.0) % [place] % (Auto) (1.0-6.0) % Eos % (Auto) (1.5-5.0) % Baso % (Auto) (0.0-3.0) % Gran # (1.4-6.5) Lymph # (Auto) (1.2-3.4) [place] # (Auto) (0.1-0.6) Eos # (Auto) (0.0-0.7) Baso # (Auto) (0.0-2.0) K/mm3 pCO2 (35-45) mm/Hg pO2 (80-100) mm/Hg HCO3 (21-28) mmol/L ABG pH (7.35-7.45) ABG Total CO2 (22-28) mmol.L ABG O2 Saturation (95-98) % ABG O2 Content (15-23) ML/dl ABG Base Excess (-2.0-3.0) mmol/L ABG Hemoglobin (11.7-17.4) g/dL ABG Carboxyhemoglobin (0.5-1.5) % POC ABG HHb (Measured) (0-5) % ABG Methemoglobin (0.0-3.0) % ABG O2 Capacity (16-24) mL/dl ABG Potassium (3.6-5.2) mmol/L Hgb O2 Saturation (95.0-98.0) % Sodium 147 (132-148) mmol/L Chloride 121 H (98-107) mmol/L Glucose (75-110) mg/dl Lactate (0.7-2.1) mmol/L Mechanical Rate FiO2 % Tidal Volume PEEP Potassium 4.4 (3.6-5.0) mmol/L Carbon Dioxide 22 (21-33) mmol/L Anion Gap 9 L (10-20) BUN 50 H (7-21) mg/dL Creatinine 1.5 (0.8-1.5) mg/dl Est GFR ( Amer) 56 Est GFR (Non-Af Amer) 46 Random Glucose 125 H (70-110) mg/dL Calcium 7.8 L (8.4-10.5) mg/dL Phosphorus 4.0 (2.5-4.5) mg/dL Magnesium 2.7 H (1.7-2.2) mg/dL Total Bilirubin 0.4 (0.2-1.3) mg/dL AST 46 (17-59) U/L ALT 47 (7-56) U/L Alkaline Phosphatase 45 (38-126) U/L Total Protein 5.6 L (5.8-8.3) g/dL Albumin 3.0 (3.0-4.8) g/dL Globulin 2.6 gm/dL Albumin/Globulin Ratio 1.2 (1.1-1.8) Arterial Blood Potassium (3.6-5.2) mmol/L Urine Color Yellow (YELLOW) Urine Appearance Sl cloudy (CLEAR) Urine pH 6.0 (4.7-8.0) Ur Specific [place] 1.020 (1.005-1.035) Urine Protein Negative (<30 mg/dL) mg/dL Urine Glucose (UA) Negative (NEGATIVE) mg/dL Urine Ketones Trace H (NEGATIVE) mg/dL Urine Blood Large H (NEGATIVE) Urine Nitrate Negative (NEGATIVE) Urine Bilirubin Negative (NEGATIVE) Urine Urobilinogen 0.2 (<1 E.U./dL) E.U./dL Ur Leukocyte Esterase Trace H (NEGATIVE) [place]/uL Urine RBC 10 - 15 (0-2) /hpf Urine WBC 5 - 10 (0-6) /hpf Ur Epithelial Cells 4 - 5 (0-5) /hpf Uric Acid Crystals Few /hpf Urine Bacteria Mod (NEG) Urine Eosinophils Ur Random Creatinine mg/dL Ur Random Sodium 92 meq/L 09/22/18 09/22/18 09/22/18 Range/Units 16:16 15:37 11:20 WBC 9.6 D (4.5-11.0) 10^3/uL RBC 3.67 (3.5-6.1) 10^6/uL Hgb 11.2 L (14.0-18.0) g/dL Hct 36.4 L (42.0-52.0) % MCV 99.2 (80.0-105.0) fl MCH 30.5 (25.0-35.0) pg MCHC 30.8 L (31.0-37.0) g/dl RDW 12.8 (11.5-14.5) % Plt Count 132 (120.0-450.0) 10^3/uL MPV 9.6 (7.0-11.0) fl Gran % 95.3 H (50.0-68.0) % Lymph % (Auto) 4.6 L (22.0-35.0) % [place] % (Auto) 0.1 L (1.0-6.0) % Eos % (Auto) 0.0 L (1.5-5.0) % Baso % (Auto) 0.0 (0.0-3.0) % Gran # 9.18 H (1.4-6.5) Lymph # (Auto) 0.4 L (1.2-3.4) [place] # (Auto) 0.0 L (0.1-0.6) Eos # (Auto) 0.0 (0.0-0.7) Baso # (Auto) 0.00 (0.0-2.0) K/mm3 pCO2 40 50 H (35-45) mm/Hg pO2 155.0 H 187.0 H (80-100) mm/Hg HCO3 19.7 L 21.9 (21-28) mmol/L ABG pH 7.30 L 7.25 L (7.35-7.45) ABG Total CO2 20.9 L 23.4 (22-28) mmol.L ABG O2 Saturation 100.3 H 99.9 H (95-98) % ABG O2 Content 15.8 16.5 (15-23) ML/dl ABG Base Excess -6.3 L -5.5 L (-2.0-3.0) mmol/L ABG Hemoglobin 11.3 L 11.7 (11.7-17.4) g/dL ABG Carboxyhemoglobin 2.0 H 1.5 (0.5-1.5) % POC ABG HHb (Measured) -0.3 L 0.1 (0-5) % ABG Methemoglobin 0.9 0.7 (0.0-3.0) % ABG O2 Capacity 15.8 L 16.5 (16-24) mL/dl ABG Potassium (3.6-5.2) mmol/L Hgb O2 Saturation 97.5 97.6 (95.0-98.0) % Sodium (132-148) mmol/L Chloride (98-107) mmol/L Glucose (75-110) mg/dl Lactate (0.7-2.1) mmol/L Mechanical Rate FiO2 40.0 50.0 % Tidal Volume PEEP Potassium (3.6-5.0) mmol/L Carbon Dioxide (21-33) mmol/L Anion Gap (10-20) BUN (7-21) mg/dL Creatinine (0.8-1.5) mg/dl Est GFR ( Amer) Est GFR (Non-Af Amer) Random Glucose (70-110) mg/dL Calcium (8.4-10.5) mg/dL Phosphorus (2.5-4.5) mg/dL Magnesium (1.7-2.2) mg/dL Total Bilirubin (0.2-1.3) mg/dL AST (17-59) U/L ALT (7-56) U/L Alkaline Phosphatase (38-126) U/L Total Protein (5.8-8.3) g/dL Albumin (3.0-4.8) g/dL Globulin gm/dL Albumin/Globulin Ratio (1.1-1.8) Arterial Blood Potassium (3.6-5.2) mmol/L Urine Color (YELLOW) Urine Appearance (CLEAR) Urine pH (4.7-8.0) Ur Specific [place] (1.005-1.035) Urine Protein (<30 mg/dL) mg/dL Urine Glucose (UA) (NEGATIVE) mg/dL Urine Ketones (NEGATIVE) mg/dL Urine Blood (NEGATIVE) Urine Nitrate (NEGATIVE) Urine Bilirubin (NEGATIVE) Urine Urobilinogen (<1 E.U./dL) E.U./dL Ur Leukocyte Esterase (NEGATIVE) [place]/uL Urine RBC (0-2) /hpf Urine WBC (0-6) /hpf Ur Epithelial Cells (0-5) /hpf Uric Acid Crystals /hpf Urine Bacteria (NEG) Urine Eosinophils Ur Random Creatinine mg/dL Ur Random Sodium meq/L 09/22/18 Range/Units 10:00 WBC (4.5-11.0) 10^3/uL RBC (3.5-6.1) 10^6/uL Hgb (14.0-18.0) g/dL Hct (42.0-52.0) % MCV (80.0-105.0) fl MCH (25.0-35.0) pg MCHC (31.0-37.0) g/dl RDW (11.5-14.5) % Plt Count (120.0-450.0) 10^3/uL MPV (7.0-11.0) fl Gran % (50.0-68.0) % Lymph % (Auto) (22.0-35.0) % [place] % (Auto) (1.0-6.0) % Eos % (Auto) (1.5-5.0) % Baso % (Auto) (0.0-3.0) % Gran # (1.4-6.5) Lymph # (Auto) (1.2-3.4) [place] # (Auto) (0.1-0.6) Eos # (Auto) (0.0-0.7) Baso # (Auto) (0.0-2.0) K/mm3 pCO2 68 H (35-45) mm/Hg pO2 107.0 H (80-100) mm/Hg HCO3 22.1 (21-28) mmol/L ABG pH 7.12 L* (7.35-7.45) ABG Total CO2 24.2 (22-28) mmol.L ABG O2 Saturation 99.1 H (95-98) % ABG O2 Content (15-23) ML/dl ABG Base Excess -8.3 L (-2.0-3.0) mmol/L ABG Hemoglobin (11.7-17.4) g/dL ABG Carboxyhemoglobin (0.5-1.5) % POC ABG HHb (Measured) (0-5) % ABG Methemoglobin (0.0-3.0) % ABG O2 Capacity (16-24) mL/dl ABG Potassium 4.9 (3.6-5.2) mmol/L Hgb O2 Saturation (95.0-98.0) % Sodium 147.0 (132-148) mmol/L Chloride 116.0 H (98-107) mmol/L Glucose 136 H (75-110) mg/dl Lactate 1.0 (0.7-2.1) mmol/L Mechanical Rate 16 FiO2 50.0 % Tidal Volume 340 PEEP 5 Potassium (3.6-5.0) mmol/L Carbon Dioxide (21-33) mmol/L Anion Gap (10-20) BUN (7-21) mg/dL Creatinine (0.8-1.5) mg/dl Est GFR ( Amer) Est GFR (Non-Af Amer) Random Glucose (70-110) mg/dL Calcium (8.4-10.5) mg/dL Phosphorus (2.5-4.5) mg/dL Magnesium (1.7-2.2) mg/dL Total Bilirubin (0.2-1.3) mg/dL AST (17-59) U/L ALT (7-56) U/L Alkaline Phosphatase (38-126) U/L Total Protein (5.8-8.3) g/dL Albumin (3.0-4.8) g/dL Globulin gm/dL Albumin/Globulin Ratio (1.1-1.8) Arterial Blood Potassium 4.9 (3.6-5.2) mmol/L Urine Color (YELLOW) Urine Appearance (CLEAR) Urine pH (4.7-8.0) Ur Specific [place] (1.005-1.035) Urine Protein (<30 mg/dL) mg/dL Urine Glucose (UA) (NEGATIVE) mg/dL Urine Ketones (NEGATIVE) mg/dL Urine Blood (NEGATIVE) Urine Nitrate (NEGATIVE) Urine Bilirubin (NEGATIVE) Urine Urobilinogen (<1 E.U./dL) E.U./dL Ur Leukocyte Esterase (NEGATIVE) [place]/uL Urine RBC (0-2) /hpf Urine WBC (0-6) /hpf Ur Epithelial Cells (0-5) /hpf Uric Acid Crystals /hpf Urine Bacteria (NEG) Urine Eosinophils Ur Random Creatinine mg/dL Ur Random Sodium meq/L Laboratory Results - last 24 hr 09/22/18 09/22/18 09/22/18 10:00 11:20 15:37 WBC RBC Hgb Hct MCV MCH MCHC RDW Plt Count MPV Gran % Lymph % (Auto) [place] % (Auto) Eos % (Auto) Baso % (Auto) Gran # Lymph # (Auto) [place] # (Auto) Eos # (Auto) Baso # (Auto) pCO2 68 H 50 H 40 pO2 107.0 H 187.0 H 155.0 H HCO3 22.1 21.9 19.7 L ABG pH 7.12 L* 7.25 L 7.30 L ABG Total CO2 24.2 23.4 20.9 L ABG O2 Saturation 99.1 H 99.9 H 100.3 H ABG O2 Content 16.5 15.8 ABG Base Excess -8.3 L -5.5 L -6.3 L ABG Hemoglobin 11.7 11.3 L ABG Carboxyhemoglobin 1.5 2.0 H POC ABG HHb (Measured) 0.1 -0.3 L ABG Methemoglobin 0.7 0.9 ABG O2 Capacity 16.5 15.8 L ABG Potassium 4.9 Hgb O2 Saturation 97.6 97.5 Sodium 147.0 Chloride 116.0 H Glucose 136 H Lactate 1.0 Mechanical Rate 16 FiO2 50.0 50.0 40.0 Tidal Volume 340 PEEP 5 Potassium Carbon Dioxide Anion Gap BUN Creatinine Est GFR ( Amer) Est GFR (Non-Af Amer) Random Glucose Calcium Phosphorus Magnesium Total Bilirubin AST ALT Alkaline Phosphatase Total Protein Albumin Globulin Albumin/Globulin Ratio Arterial Blood Potassium 4.9 Urine Color Urine Appearance Urine pH Ur Specific [place] Urine Protein Urine Glucose (UA) Urine Ketones Urine Blood Urine Nitrate Urine Bilirubin Urine Urobilinogen Ur Leukocyte Esterase Urine RBC Urine WBC Ur Epithelial Cells Uric Acid Crystals Urine Bacteria Urine Eosinophils Ur Random Creatinine Ur Random Sodium 09/22/18 09/22/18 09/22/18 16:16 16:16 16:35 WBC 9.6 D RBC 3.67 Hgb 11.2 L Hct 36.4 L MCV 99.2 MCH 30.5 MCHC 30.8 L RDW 12.8 Plt Count 132 MPV 9.6 Gran % 95.3 H Lymph % (Auto) 4.6 L [place] % (Auto) 0.1 L Eos % (Auto) 0.0 L Baso % (Auto) 0.0 Gran # 9.18 H Lymph # (Auto) 0.4 L [place] # (Auto) 0.0 L Eos # (Auto) 0.0 Baso # (Auto) 0.00 pCO2 pO2 HCO3 ABG pH ABG Total CO2 ABG O2 Saturation ABG O2 Content ABG Base Excess ABG Hemoglobin ABG Carboxyhemoglobin POC ABG HHb (Measured) ABG Methemoglobin ABG O2 Capacity ABG Potassium Hgb O2 Saturation Sodium 147 Chloride 121 H Glucose Lactate Mechanical Rate FiO2 Tidal Volume PEEP Potassium 4.4 Carbon Dioxide 22 Anion Gap 9 L BUN 50 H Creatinine 1.5 Est GFR ( Amer) 56 Est GFR (Non-Af Amer) 46 Random Glucose 125 H Calcium 7.8 L Phosphorus 4.0 Magnesium 2.7 H Total Bilirubin 0.4 AST 46 ALT 47 Alkaline Phosphatase 45 Total Protein 5.6 L Albumin 3.0 Globulin 2.6 Albumin/Globulin Ratio 1.2 Arterial Blood Potassium Urine Color Urine Appearance Urine pH Ur Specific [place] Urine Protein Urine Glucose (UA) Urine Ketones Urine Blood Urine Nitrate Urine Bilirubin Urine Urobilinogen Ur Leukocyte Esterase Urine RBC Urine WBC Ur Epithelial Cells Uric Acid Crystals Urine Bacteria Urine Eosinophils Ur Random Creatinine Ur Random Sodium 92 09/22/18 09/22/18 09/22/18 21:25 21:25 21:25 WBC RBC Hgb Hct MCV MCH MCHC RDW Plt Count MPV Gran % Lymph % (Auto) [place] % (Auto) Eos % (Auto) Baso % (Auto) Gran # Lymph # (Auto) [place] # (Auto) Eos # (Auto) Baso # (Auto) pCO2 pO2 HCO3 ABG pH ABG Total CO2 ABG O2 Saturation ABG O2 Content ABG Base Excess ABG Hemoglobin ABG Carboxyhemoglobin POC ABG HHb (Measured) ABG Methemoglobin ABG O2 Capacity ABG Potassium Hgb O2 Saturation Sodium Chloride Glucose Lactate Mechanical Rate FiO2 Tidal Volume PEEP Potassium Carbon Dioxide Anion Gap BUN Creatinine Est GFR ( Amer) Est GFR (Non-Af Amer) Random Glucose Calcium Phosphorus Magnesium Total Bilirubin AST ALT Alkaline Phosphatase Total Protein Albumin Globulin Albumin/Globulin Ratio Arterial Blood Potassium Urine Color Yellow Urine Appearance Sl cloudy Urine pH 6.0 Ur Specific [place] 1.020 Urine Protein Negative Urine Glucose (UA) Negative Urine Ketones Trace H Urine Blood Large H Urine Nitrate Negative Urine Bilirubin Negative Urine Urobilinogen 0.2 Ur Leukocyte Esterase Trace H Urine RBC 10 - 15 Urine WBC 5 - 10 Ur Epithelial Cells 4 - 5 Uric Acid Crystals Few Urine Bacteria Mod Urine Eosinophils Negative Ur Random Creatinine 82 Ur Random Sodium 09/23/18 05:20 WBC RBC Hgb Hct MCV MCH MCHC RDW Plt Count MPV Gran % Lymph % (Auto) [place] % (Auto) Eos % (Auto) Baso % (Auto) Gran # Lymph # (Auto) [place] # (Auto) Eos # (Auto) Baso # (Auto) pCO2 pO2 HCO3 ABG pH ABG Total CO2 ABG O2 Saturation ABG O2 Content ABG Base Excess ABG Hemoglobin ABG Carboxyhemoglobin POC ABG HHb (Measured) ABG Methemoglobin ABG O2 Capacity ABG Potassium Hgb O2 Saturation Sodium Chloride Glucose Lactate Mechanical Rate FiO2 Tidal Volume PEEP Potassium Carbon Dioxide Anion Gap BUN Creatinine Est GFR ( Amer) Est GFR (Non-Af Amer) Random Glucose Calcium Phosphorus 3.3 Magnesium 2.8 H Total Bilirubin AST ALT Alkaline Phosphatase Total Protein Albumin Globulin Albumin/Globulin Ratio Arterial Blood Potassium Urine Color Urine Appearance Urine pH Ur Specific [place] Urine Protein Urine Glucose (UA) Urine Ketones Urine Blood Urine Nitrate Urine Bilirubin Urine Urobilinogen Ur Leukocyte Esterase Urine RBC Urine WBC Ur Epithelial Cells Uric Acid Crystals Urine Bacteria Urine Eosinophils Ur Random Creatinine Ur Random Sodium Critical Care Progress Note - Nutrition Nutrition: Nutrition Category Date Time Status NPO Diet [DIET] Diets 09/22/18 Lunch Ordered Assessment/Plan - Assessment and Plan (Free Text) Assessment: 73 y/o male with PMH of COPD, asthma admitted to ICU for management of asthma exacerbation complicated with allergic reaction likely due to zithromax administration. He is intubated/sedated due to hypercapnic respiratory failure with mixed type acidosis that is improving Plan: Neuro: -sedated/ intubated on fentanyl, midazolam -maintain normothermia CVS: -h/o HTN, hold coozar, diltiazem -Maintain MAP>65 -trop negative x2 Resp: -hypercapnic respiratory failure with improved respiratory acidosis. On ventilation, weaning failed, continue vent -vent settin/20/360/35% -AB.35/42/244/23.2 improving -LE doppler negative for DVT -continue brovana, budesonide, duoneb -taper solu-medrol 50mg q8h -CXR: no acute infiltrate -maintain O2 sat >90% -continue oral hygiene -COPD exacerbation with possible allergic reaction to zithromax, SOB but no angioedema -pulmonology following, Dr Coughlin Renal: -AMPARO improving -BUN/Cr 45/1.2 -continue LR @75ml/hr. avoid NS due to increased CL 121 -I&O 4318/800 in last 24 hour. LR @75cc/hr now -maintain euvolemia -avoid nephrotoxic drugs -Nephro (Dr Vegas) is following ID: -leukocytosis improving -continue doxycycline,meropenem -ID following GI: -transaminitis AST/ALT 60/44 -continue protonix MSK: -h/o gouty arthritis -hold colchicine, allopurinol Prophylaxis: - GI ppx: Protonix 40 - DVT ppx: heparin 5000U SQ NPO Dispo: continue sedation, intubation, steroid, bronchodilator, abx Case reviewed and plan discussed with Dr. Veronica Vance, DO PGY1
[2018-09-23] MEDS: Budesonide 0.5 mg/2 ml Inhal Susp UD IH SCH ×2 (07:57→19:57)
[2018-09-23 08:06] LABS: GRAN # 9.81 (1.4-6.5); GRAN % 95.8 % (50.0-68.0); HEMOGLOBIN 11.8 g/dL (14.0-18.0); LYMPH # 0.4 (1.2-3.4); LYMPH % 4.1 % (22.0-35.0); MEAN CELL VOLUME 97.2 fl (80.0-105.0); MEAN CORPUSCULAR HEMOGLOBIN 30.2 pg (25.0-35.0); MEAN CORPUSCULAR HGB CONC 31.1 g/dl (31.0-37.0); MONO % 0.1 % (1.0-6.0); RBC 3.91 10^6/uL (3.5-6.1); RED CELL DISTRIBUTION WIDTH 12.6 % (11.5-14.5); WHITE BLOOD COUNT 10.2 10^3/uL (4.5-11.0)
--- NOTE | 2018-09-23 08:13 | PN ---
DATE: 09/22/2018 SUBJECTIVE: The patient is a 73-year-old male , was seen and examined at bedside on 09/22/2018. Patient was seen by hospitalist. Early in the morning, the patient's breathing was getting bad . First, the patient was given BiPAP high-flow nasal cannula but cannot tolerate. Has severe underlying lung disease. The patient was intubated, extubated, and paralyzed. Because the patient was intubated, cannot do review of system. Otherwise no hematuria, no fever, no chills. PHYSICAL EXAMINATION: VITAL SIGNS: Temperature 98, heart rate 58, respiratory rate 12, blood pressure 91/50, pulse oximetry 96% on room air. HEENT: Head is normocephalic and atraumatic. Eyes PERRLA. Pupils intact. Conjunctivae clear. Nose patent. NECK: Supple. No carotid bruits. No JVD or thyromegaly. CHEST: Bilaterally symmetrical. HEART: S1 and S2 positive. LUNGS: Clear to auscultation. ABDOMEN: Soft. Positive organomegaly. EXTREMITIES: No edema. No cyanosis. NEUROLOGIC: The patient is intubation , can not do complete neuro examine MEDICATIONS: Atrovent, Brovana, Cardizem, Cozaar, Diprivan, DuoNeb, Fentanyl, heparin, Pulmicort given. LABORATORY DATA: Hemoglobin 13, hematocrit 42.7, white blood cell 17,000, platelets 182. D-dimer 274. Blood culture is negative. Chest x-ray noted ASSESSMENT AND PLAN: The patient is a 73-year-old with severely compromised pulmonary system, respiratory failure, severe obstructive lung disease, sleep apnea syndrome ,gouty arthritis .djd with deformties hypertension. The patient had long discussion done with Dr. Coughlin, and hospitalist, Dr. Martin. Continue current treatment. Repeat labs. Gastrointestinal and deep venous thrombosis prophylaxis. We will follow up. Mary Roper MD [facility]
[2018-09-23 08:45] LABS: ALB/GLOB RATIO 1.2 (1.1-1.8); ALBUMIN 2.9 g/dL (3.0-4.8); ALT/SGPT 41 U/L (7-56); AST/SGOT 54 U/L (17-59); BLOOD UREA NITROGEN 45 mg/dL (7-21); CALCIUM 8.2 mg/dL (8.4-10.5); GFR NON-AFRICAN AMERICAN 60
--- NOTE | 2018-09-23 09:50 | US ---
Date of service: 09/22/2018 PROCEDURE: Ultrasound of the Kidneys HISTORY: AMPARO COMPARISON: None available. TECHNIQUE: Sonogram of the kidneys. FINDINGS: RIGHT KIDNEY: Measures: 8.9 x 4.1 x 4.6 cm. Normal in size, contour and echogenicity. No stone, solid mass lesion or hydronephrosis visualized. LEFT KIDNEY: Imaging of the left kidney is somewhat compromised is patient was not able to be optimally positioned for the examination. Measures: 8.5 x 4.8 x 3.4 cm. Normal in size, contour and echogenicity. No definitive stone, solid mass lesion or hydronephrosis visualized. OTHER FINDINGS: None. IMPRESSION: No suspicious findings at either kidney. Imaging of left kidney is somewhat compromised by limited ability of patient to be positioned for ultrasonography.
--- NOTE | 2018-09-23 11:51 | PN ---
DATE: 09/23/2018 SUBJECTIVE: The patient is seen and examined at bedside. He is sedated on Midazolam 5 mg per hour and fentanyl 10 mcg per hour. He was temporarily weaned off of sedation and started on pressure support, which however, he did not tolerate very well. He was put back on PRVC. PHYSICAL EXAMINATION: VITAL SIGNS: At the present time, the patient is on PRVC 360/20/5/35, blood pressure 131/75. End-tidal CO2 on the monitor 41, respiratory rate 22, oxygen saturation 94%, and heart rate 103. ENT: Head and neck atraumatic. LUNGS: Little faint wheezes, however much, much improved compared with yesterday. HEART: Regular rate and rhythm. S1, S2 normal. ABDOMEN: Soft, nontender, nondistended. NEURO: The patient is sedated. SKIN: Moist. PSYCH: The patient is sedated. MUSCULOSKELETAL: No C/C/E. LABORATORY DATA: Sodium 148, potassium 4.4, chloride 121, carbon dioxide 24, BUN 45, creatinine 1.2, down from 1.5, glucose 111, AST 54, ALT 41, total bilirubin 0.3. WBC 10.2, hemoglobin 11.8, platelet count 133. ABG 7.35/42/224 on 40% FIO2 (O2 sat went down to 35%). MEDICATIONS: Ofirmev, DuoNeb every 6 hours, Brovana, Pulmicort, doxycycline, heparin subcu, lactated Ringer at 150 mL/hour, Xopenex p.r.n., meropenem, Solu-Medrol 60 mg IV every 8 hours, Singulair, Protonix. ASSESSMENT AND PLAN: This 73-year-old gentleman with hypercapnic respiratory failure secondary to severe bronchospasm/status asthmaticus requiring intubation. At present time, the patient sound much clear. His wheezing much improved. His peak pressure is 19. He however did not tolerate pressure support trial and was put back on PRVC. We will continue with steroid taper, bronchodilators and antibiotics. Of note, his acute kidney injury is much improved. He is hemodynamically stable. His ventilatory status improved as well. At present time, we will proceed with low to intermediate tidal volume ventilation maintaining plateau pressure less than 30 cm of water. We will continue with head of bed elevated more than 35 degrees, oral hygiene. We will make sure that I to E ratio maintained at more than 1:2.5. We will continue with daily sedation vacation and daily weaning trials. We will continue to maintain mean arterial pressure more than 65, avoid hyperchloremia, keep euvolemia, euglycemia. Deep venous thrombosis prophylaxis, gastrointestinal prophylaxis. Venous Doppler of lower extremities, preliminary report showed negative for deep venous thrombosis. ccm time 40 min Tomas Martin MD MTDKelli
[2018-09-23 12:04] LABS: URINE BILIRUBIN NEGATIVE (NEGATIVE); URINE BLOOD MODERATE (NEGATIVE); URINE GLUCOSE (UA) NEGATIVE (NEGATIVE); URINE LEUKOCYTE ESTERASE TRACE Leu/uL (NEGATIVE); URINE PROTEIN NEGATIVE mg/dL (<30 mg/dL); URINE UROBILINOGEN 0.2 E.U./dL (<1 E.U./dL)
[2018-09-23 12:06] LABS: URINE APPEARANCE SL CLOUDY (CLEAR); URINE COLOR YELLOW (YELLOW)
[2018-09-23 12:10] LABS: URINE BACTERIA FEW (NEG)
--- NOTE | 2018-09-23 12:51 | PN ---
DATE: 09/23/2018 SUBJECTIVE: The patient is in bed, in no acute distress, nontoxic, remains intubated on the ventilator, comfortable. PHYSICAL EXAMINATION: VITAL SIGNS: Temperature of 98, blood pressure is 115/60, respiratory rate of on the vent, heart rate of 83. HEENT: ET tube in place. NECK: Supple. LUNGS: Have decreased breath sounds. HEART: Normal S1 and S2. ABDOMEN: Soft, nontender. LABORATORY DATA: Reveals the patient's white count is 9.6, hemoglobin of 11, and platelets of 132. Coagulation is noted. Chemistries reveals a BUN of 50, creatinine of 1.5 and the urinalysis is noted. Serology is reviewed. Microbiology reveals the blood cultures are negative. This morning's chest x-ray is pending. Dr. Coughlin's note from yesterday is reviewed. ASSESSMENT AND PLAN: A 73-year-old [place]er male with a history of steroid-dependent chronic obstructive lung disease and asthma with hypertension and gout, who was admitted with acute hypoxic respiratory failure and with chronic obstructive pulmonary disease, asthma exacerbation and his allergic reaction to azithromycin and intubated on a ventilator with respiratory failure with systemic inflammatory response syndrome. The patient initially had leukocytosis and had periods of tachycardia and obviously respiratory failure, intubated on the ventilator; however, the blood cultures are reported negative. The white count is normal at this time and creatinine is 1.5 and yesterday's chest x-ray, there is no active disease. The patient with sleep apnea syndrome, gouty arthritis and hypertension. We will order a procalcitonin and currently on Solu-Medrol, doxycycline. We will follow closely with you. Malvin Bear MD
--- NOTE | 2018-09-23 13:22 | CP.PCM.PN ---
Subjective - Date & Time of Evaluation Date of Evaluation: 09/23/18 Time of Evaluation: 13:20 - Subjective Subjective: Nephrology Consultation Note: Assessment: critical Acute Kidney Injury (N17.9) likely hemodynamic and pre-renal state due to diuresis, ATN: improved with IVF hyperkalemia, hypernatremia combined respi and metabolic acidosis acute on chronic hypercapnic respi failure with COPD/asthma exacerbation Vit D def Plan No acute need for renal replacement therapy at this time. Maintain hemodynamics stable. Avoid hypotension. Patient not on ACEI/ARB due to recent AMPARO Monitor Input/Output, daily weights and renal function with basic metabolic panel continue with hypotonic fluids. respi symptoms unlikely to be related to fluid status. normal BNP. consider to defer further lasix for now. continue with IVF but can lower rate to 75 ml/hr no need for bicarb supplements at this time. free water via NG tube, when started on feeding. will add vit D once on diet Dose meds/antibiotics for improved GFR. Glycemic control Further work up/management as per primary team Thanks for allowing me to participate in care of your patient. Will follow patient with you. Please call if any Qs. had d/w team Dr Ming [place] Office: [phone] Chief Complaint; unable to obtain Reason for consult: Acute Kidney Injury HPI: Pt is a 73 M with hx of copd/asthma presented with complaints of SOB and intubated for acute respi failure. renal consult for AMPARO. Denies OTC/herbal meds or NSAIDs No recent iodinated contrast exposure. Noted obvious episodes of low BP (80s). 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 intubated/sedated Vitals reviewed and noted as below Head; Atraumatic, normocephalic ENT: orally intubated EYES: Pupils are equal, round and reactive to light accommodation. Eye muscles and extraocular movement intact. Sclera is anicteric. Neck; supple no lymphadenopathy, no thyromegaly or bruit Lungs: Normal respiratory rate/effort. Breath sounds bilateral b/l improved Heart: Normal rate. s1s2 normal. No rub or gallop. Extremities: no edema. No varicose veins Neurological: Patient is sedated Skin: Warm and dry. Normal turgor. No rash. Palpitation: Normal elasticity for age Abdomen: Abdomen is soft. Bowel sounds +. There is no abdominal tenderness, no guarding/rigidity no organomegaly Psych: deferred MSK: no joint tenderness or swelling. Digits and nails normal, no deformity : kidney or bladder not palpable. has box Labs/imaging reviewed. Past medical history, past surgical history, family history, social history, allergy reviewed and noted as below Family hx: no hx of CKD. Rest non-contributory Objective - Vital Signs/Intake and Output Vital Signs (last 24 hours): Temp Pulse Resp BP Pulse Ox 98.4 F 107 H 20 131/75 94 L 09/23/18 04:00 09/23/18 11:10 09/23/18 10:50 09/23/18 11:00 09/23/18 11:10 Intake and Output: 09/23/18 09/23/18 06:59 18:59 Intake Total 2188 Output Total 600 Balance 1588 - Medications Medications: Current Medications Albuterol/Ipratropium (Duoneb 3 Mg/0.5 Mg (3 Ml) Ud) 3 ml IH Q6H BLANK Allopurinol (Zyloprim) 300 mg PO DAILY [facility] Last Admin: 09/20/18 12:23 Dose: 300 mg Arformoterol Tartrate (Brovana) 15 mcg IH [id number] BLANK Last Admin: 09/22/18 19:40 Dose: 15 mcg Budesonide (Pulmicort Respules) 1 mg IH [id number] BLANK Last Admin: 09/23/18 07:57 Dose: 0.5 mg Heparin Sodium (Porcine) (Heparin) 5,000 units SC Q8 BLANK; Protocol Last Admin: 09/23/18 05:29 Dose: 5,000 units Doxycycline Hyclate 100 mg/ (Sodium Chloride) 100 mls @ 100 mls/hr IVPB Q12 BLANK; Protocol Last Admin: 09/23/18 10:18 Dose: 100 mls/hr Acetaminophen (Ofirmev) 1,000 mg in 100 mls @ 400 mls/hr IVPB Q6H PRN PRN Reason: Temperature > 100.4 Stop: 09/24/18 06:02 Last Admin: 09/22/18 06:32 Dose: 400 mls/hr Propofol (Diprivan) 1,000 mg in 100 mls @ 3.677 mls/hr IV .Q24H PRN; Protocol PRN Reason: TITRATE PER MD ORDER Last Admin: 09/22/18 09:00 Dose: 10 mcg/kg/min, 3.677 mls/hr Fentanyl Citrate (Fentanyl Citrate/Sodium Chloride 1 Mg/100 Ml) 1,000 mcg in 100 mls @ 10 mls/hr IV .Q10H PRN; Protocol PRN Reason: TITRATE PER MD ORDER Last Titration: 09/22/18 19:00 Dose: 10 mcg/hr, 1 mls/hr Midazolam 100 mg/100ml in NS (Midazolam 100 Mg/100ml In Ns) 100 mg in 100 mls @ 5 mls/hr IV .Q20H PRN; Protocol PRN Reason: Agitation Last Admin: 09/23/18 05:29 Dose: 4 mg/hr, 4 mls/hr Meropenem/Sodium Chloride (Merrem Iv 500 Mg/Ns 50 Ml) 500 mg in 50 mls @ 12.5 mls/hr IVPB Q8 BLANK; Protocol Stop: 10/02/18 14:01 Lactated Ringer's (Lactated Ringer's) 1,000 mls @ 75 mls/hr IV .[id number] BLANK Ipratropium [place] (Atrovent) 0.5 mg IH [id number] PRN PRN Reason: Shortness of Breath Levalbuterol HCl (Xopenex) 0.63 mg IH Q2H PRN PRN Reason: sob/wheezing Last Admin: 09/22/18 19:39 Dose: 0.63 mg Losartan Potassium (Cozaar) 50 mg PO DAILY [facility] Last Admin: 09/20/18 12:21 Dose: 50 mg Methylprednisolone (Solu-Medrol) 50 mg IVP Q8 [facility] Montelukast Sodium (Singulair) 10 mg PO HS [facility] Last Admin: 09/22/18 22:16 Dose: 10 mg Pantoprazole Sodium (Protonix Inj) 40 mg IVP DAILY [facility] Last Admin: 09/23/18 10:17 Dose: 40 mg - Labs Labs: 09/23/18 06:30 09/23/18 06:30
[2018-09-23] MEDS: MEROPENEM 500 MG in NS 500 MG/50 ML BAG IVPB SCH ×2 (14:15→22:57)
--- NOTE | 2018-09-23 15:40 | CARD ---
APPROVED REPORT Date of service: 09/22/2018 EXAM: Two-dimensional and M-mode echocardiogram with Doppler and color Doppler. INDICATION CHF 2D DIMENSIONS IVSd1.2 (0.7-1.1cm)LVDd3.8 (3.9-5.9cm) LVOT Diameter2.0 (1.8-2.4cm)PWd1.0 (0.7-1.1cm) LVDs2.7 (2.5-4.0cm)FS (%) 29.5 % LVEF (%)57.3 (>50%) M-Mode DIMENSIONS Left Atrium (MM)4.20 (2.5-4.0cm)Aortic Root3.20 (2.2-3.7cm) Aortic Cusp Exc.1.20 (1.5-2.0cm) Aortic Valve AoV Peak Hitybwdi204.0cm/sAoV VTI35.1cmAO Peak GR.12mmHg LVOT Peak Kayjivnf40.9cm/sLVOT VTI16.90cmAO Mean GR.5mmHg MADHURI (VMAX)1.35hp0CXO (VTI)1.51cm2 Mitral Valve MV E Cworuhaz51.1cm/sMV A Amzakbda10.7cm/sE/A ratio0.7 TDI Lateral E' Peak V6.63cm/sMedial E' Peak V6.53cm/sE/Lateral E'11.0 E/Medial E'11.2 Tricuspid Valve TR Peak Fvbvdxia125bp/sRAP [id number] Peak Gr.14mmHg [id number] LEFT VENTRICLE The left ventricle is normal size. There is borderline concentric left ventricular hypertrophy. The left ventricular function is normal. The left ventricular ejection fraction is within the normal range. There is normal LV segmental wall motion. Transmitral Doppler flow pattern is Grade I-abnormal relaxation pattern. RIGHT VENTRICLE The right ventricle is normal size. There is normal right ventricular wall thickness. The right ventricular systolic function is normal. ATRIA The left atrium is borderline dilated. The right atrium size is normal. AORTIC VALVE The aortic valve is severely thickened. There is trace to mild aortic regurgitation. There is mild valvular aortic stenosis. MITRAL VALVE The mitral valve is mildly thickened. There is no mitral valve regurgitation noted. There is no mitral valve stenosis. TRICUSPID VALVE The tricuspid valve is normal in structure. There is trace tricuspid regurgitation. GREAT VESSELS The aortic root is normal in size. The IVC is normal in size and collapses >50% with inspiration. PERICARDIAL EFFUSION There is a trace pericardial effusion. <Conclusion> There is borderline concentric left ventricular hypertrophy. The left ventricular function is normal. The left ventricular ejection fraction is within the normal range. There is normal LV segmental wall motion. Transmitral Doppler flow pattern is Grade I-abnormal relaxation pattern. There is mild valvular aortic stenosis. There is trace to mild aortic regurgitation.
[2018-09-23] MEDS: Arformoterol 15 mcg/2 ml Inh Sol IH SCH (19:57)
--- NOTE | 2018-09-23 21:28 | PN ---
DATE: 09/23/2018 PULMONARY CRITICAL CARE PROGRESS NOTE REFERRING PHYSICIAN: Mary Roper MD SUBJECTIVE: He is intubated and sedated, attempt of weaning ventilator this morning failed, not much ET tube secretion. No hemoptysis or hematemesis. No hematuria. No diarrhea reported. OBJECTIVE: GENERAL: Intubated and sedated. VITAL SIGNS: Temperature is 98, heart rate is 94, respiratory rate is 14, pulse ox 35% on 40% oxygen, and blood pressure 145/81. HEENT: Moist mucous membranes. ET tube, no secretion. NECK: Supple. No JVD. LUNGS: Has a improve airflow since yesterday. HEART: S1 and S2. ABDOMEN: Soft and nontender. No organomegaly. EXTREMITIES: Not much edema. NEUROLOGIC: Intubated and sedated. MEDICATIONS: He is on Atrovent inhaled every 6 hours, Brovana inhaled twice a day, Cozaar 50 mg daily, getting IV propofol, doxycycline 100 mg twice a day, DuoNeb every 6 hours [id number], fentanyl IV, heparin 5000 units subcutaneously every 8 hours, meropenem 500 mg every 8 hours, also on midazolam IV drip, Tylenol p.r.n., Protonix 40 mg daily, Pulmicort inhaled twice a day, Singulair 10 mg daily, Solu-Medrol mg every 8 hours, Xopenex inhaled every 2 hours p.r.n., and allopurinol 300 mg daily. LABORATORY DATA: Shows hemoglobin 11.8, hematocrit 38, WBC 10.2, and platelet count is 133. Blood gases show pH of 7.35, pCO2 of 42, O2 of 224, this is on 40% oxygen on ventilator. Sodium 148, potassium 4.4, chloride 121, bicarbonate 24, BUN 45, creatinine 1.2, glucose 111, and calcium is . AST 54, ALT 41, and alk phos is 43. Albumin 2.9. Procalcitonin is 0.10. Influenza A and B negative. Microbiology; blood culture, urine culture, there is no growth. Has a venous Doppler of lower extremity done which was negative for DVT. Chest x-ray done this morning shows no acute cardiopulmonary process. IMPRESSION AND PLAN: Respiratory failure with suspected severe obstructive lung disease, may have sleep apnea syndrome, gouty arthritis, hypertension, and allergy to multiple medications. Case discussed with veterans services specialist in detail. We will leave present ventilator setting for tonight. Continue Solu-Medrol, inhaled bronchodilator, antibiotics, gastric prophylaxis, and deep venous thrombosis prophylaxis. Taper down the sedation tomorrow, may have to just extubate if he meet the criteria. Follow up ABG, chest x-ray, CBC, and CMP in the morning. Critical care time more than 35 minutes. Thank you and we will follow with you. Morgan Coughlin MD
[2018-09-24] MEDS: Albuterol-Ipratrop 3 mg / 0.5 (3 ml) UD IH SCH ×4 (01:30→21:02)
--- NOTE | 2018-09-24 03:08 | PN ---
DATE: 09/23/2018 SUBJECTIVE: The patient is a 73-year-old male. The patient was seen and examined at the bedside on 09/23/2018, looking comfortable. He was intubated and sedated. Attempted to weaning off ventilator this morning, failed. Not much ET secretions. No fever. No chills. No hemoptysis. No hematuria. No hematochezia. PHYSICAL EXAMINATION: VITAL SIGNS: Temperature 98, heart rate 94, respiratory rate 14, pulse oximetry 35% on 40% oxygen, blood pressure 145/81. HEENT: Normocephalic and atraumatic. Eyes PERRLA. Nose patent. Mucous membranes are moist. The patient is intubated. NECK: Supple. No JVD. No carotid bruit. No organomegaly. LUNGS: Has improved airflow since yesterday. HEART: S1 and S2 positive. ABDOMEN: Soft. No organomegaly. EXTREMITIES: No edema. No cyanosis. NEUROLOGIC: The patient is intubated and sedated. MEDICATIONS: Atrovent, Brovana, Cozaar, doxycycline, DuoNeb, fentanyl, meropenem, midazolam, Protonix, Pulmicort, Xopenex. LABORATORY DATA: Hemoglobin 11.8, hematocrit 38, white blood cell 10.2, platelets 132. Sodium 148, potassium 4.4, BUN 44, creatinine 1.2. AST 54, ALT 41. ASSESSMENT AND PLAN: Mr. Jeffry Denson is a 73-year-old male. Has respiratory failure with suspected severe obstructive pulmonary disease, sleep apnea syndrome, gouty arthritis, hypertension, allergic to multiple medications. I reviewed Dr. Coughlin's notes. He has discussed done with adult parole officer and myself also. The patient is intubated, tried to extubate but failed. Continue Solu-Medrol, inhaled bronchodilators, antibiotics. Gastric prophylaxis and deep vein thrombosis prophylaxis. Kept him on sedative. Tomorrow may have to just extubate if meets the criteria. Continue repeating labs. The patient was having renal insufficiency, seen by Dr. Ming [place]. Kidney is improving. Seen by Dr. Bear, Infectious Disease. The patient has steroid-dependent chronic obstructive pulmonary disease. The patient has allergic reaction to azithromycin. Gastrointestinal and deep venous thrombosis prophylaxis. We will follow up. Mary Roper MD [facility] # [id number]
[2018-09-24] MEDS: MEROPENEM 500 MG in NS 500 MG/50 ML BAG IVPB SCH ×3 (05:45→23:36)
[2018-09-24 06:11] LABS: ARTERIAL BLOOD GAS HCO3 26.6 mmol/L (21-28); ARTERIAL BLOOD GAS HEMOGLOBIN 12.3 g/dL (11.7-17.4); ARTERIAL BLOOD GAS O2 CAPACITY 16.9 mL/dl (16-24); ARTERIAL BLOOD GAS O2 CONTENT 16.6 ML/dl (15-23); ARTERIAL BLOOD GAS PCO2 45 mm/Hg (35-45); ARTERIAL BLOOD GAS PH 7.38 (7.35-7.45)
[2018-09-24 06:24] LABS: HEMOGLOBIN 12.6 g/dL (14.0-18.0); LYMPH # 0.3 (1.2-3.4); LYMPH % 3.2 % (22.0-35.0); MEAN CORPUSCULAR HGB CONC 31.3 g/dl (31.0-37.0); MEAN PLATELET VOLUME 10.2 fl (7.0-11.0); MONO # 0.1 (0.1-0.6); MONO % 0.8 % (1.0-6.0); PLATELET COUNT 133 10^3/uL (120.0-450.0); RED CELL DISTRIBUTION WIDTH 12.6 % (11.5-14.5); WHITE BLOOD COUNT 10.5 10^3/uL (4.5-11.0)
--- NOTE | 2018-09-24 07:37 | CP.CCUPN ---
<Sidney Vance - Last Filed: 09/24/18 11:52> CCU Subjective - Physician Review Subjective (Free Text): Sidney Vance DO, PGY1. ICU progress note for Dr Montillaayse Patient seen and examined at bedside. He is sedated/intubated on fentanyl and midazolam. No acute events overnight. CCU Objective - Vital Signs / Intake & Output Vital Signs (Last 4 hours): Vital Signs Temp Pulse BP Pulse Ox 09/24/18 06:30 105 H 95 09/24/18 06:20 113 H 94 L 09/24/18 06:10 105 H 95 09/24/18 06:00 105 H 158/85 H 94 L 09/24/18 05:50 107 H 88 L 09/24/18 05:40 100 H 96 09/24/18 05:30 91 H 97 09/24/18 05:20 91 H 97 09/24/18 05:10 90 97 09/24/18 05:00 91 H 150/86 96 09/24/18 04:50 93 H 97 09/24/18 04:40 91 H 97 09/24/18 04:30 94 H 97 09/24/18 04:20 95 H 97 09/24/18 04:10 95 H 97 09/24/18 04:00 97.8 F 96 H 142/78 96 09/24/18 03:50 95 H 97 09/24/18 03:40 95 H 97 Intake and Output (Last 8hrs): Intake & Output 09/23/18 09/24/18 09/24/18 22:59 06:59 14:59 Intake Total 1240 965 Output Total 550 575 Balance 690 390 Intake: IV 1240 965 IVF 1225 Right Hand 910 Output: Urine 550 575 Urethral ([place]) 550 575 Other: # Bowel Movements 0 - Physical Exam Physical Exam Limitations: Positive for: Altered Mental Status, Clinical Condition Head: Positive for: Atraumatic, Normocephalic Pupils: Positive for: PERRL Conjunctiva: Positive for: Normal Mouth: Positive for: Moist Mucous Membranes Neck: Positive for: Normal Range of Motion Respiratory/Chest: Positive for: Wheezes (wheezes b/l ), Other (intubated/ sedated ) Cardiovascular: Positive for: Regular Rate and Rhythm, Normal S1, S2. Negative for: Murmurs Abdomen: Negative for: Tenderness, Distention, Peritoneal Signs Back: Positive for: Normal Inspection Upper Extremity: Positive for: Normal Inspection. Negative for: Cyanosis, Edema Lower Extremity: Positive for: Normal Inspection. Negative for: Edema Skin: Positive for: Warm, Dry, Normal Color. Negative for: Rashes - Medications Active Medications: Active Medications Generic Name Dose Route Start Last Admin Trade Name Freq PRN Reason Stop Dose Admin Albuterol/Ipratropium 3 ml 09/23/18 08:15 09/24/18 01:30 Duoneb 3 Mg/0.5 Mg (3 Ml) Ud IH 3 ml Q6H BLANK Administration Allopurinol 300 mg 09/20/18 11:00 09/20/18 12:23 Zyloprim PO 300 mg DAILY BLANK Administration Arformoterol Tartrate 15 mcg 09/20/18 20:00 09/23/18 19:57 Brovana IH 15 mcg [id number] BLANK Administration Budesonide 1 mg 09/20/18 20:00 09/23/18 19:57 Pulmicort Respules IH 1 mg [id number] BLANK Administration Heparin Sodium (Porcine) 5,000 units 09/22/18 09:15 09/24/18 05:46 Heparin SC 5,000 units Q8 BLANK Administration Protocol Doxycycline Hyclate 100 mg/ 100 mls @ 100 mls/hr 09/21/18 10:00 09/23/18 22:55 Sodium Chloride IVPB 100 mls/hr Q12 BLANK Administration Protocol Propofol 1,000 mg in 100 mls @ 3.677 mls/hr 09/22/18 08:26 09/22/18 09:00 Diprivan IV 10 mcg/kg/min .Q24H PRN 3.677 mls/hr TITRATE PER MD ORDER Administration Protocol 10 MCG/KG/MIN Fentanyl Citrate 1,000 mcg in 100 mls @ 10 mls/hr 09/22/18 08:36 09/23/18 23:18 Fentanyl Citrate/Sodium Chloride 1 Mg/100 Ml IV 20 mcg/hr .Q10H PRN 2 mls/hr TITRATE PER MD ORDER Titration Protocol 100 MCG/HR Midazolam 100 mg/100ml in NS 100 mg in 100 mls @ 5 mls/hr 09/22/18 08:35 09/24/18 01:59 Midazolam 100 Mg/100ml In Ns IV 5 mg/hr .Q20H PRN 5 mls/hr Agitation Titration Protocol 5 MG/HR Meropenem/Sodium Chloride 500 mg in 50 mls @ 12.5 mls/hr 09/23/18 14:00 09/24/18 05:45 Merrem Iv 500 Mg/Ns 50 Ml IVPB 10/02/18 14:01 12.5 mls/hr Q8 BLANK Administration Protocol Lactated Ringer's 1,000 mls @ 75 mls/hr 09/23/18 12:39 09/23/18 22:50 Lactated Ringer's IV 75 mls/hr .[id number] BLANK Administration Ipratropium [place] 0.5 mg 09/20/18 13:58 Atrovent IH [id number] PRN Shortness of Breath Levalbuterol HCl 0.63 mg 09/21/18 05:30 09/22/18 19:39 Xopenex IH 0.63 mg Q2H PRN Administration sob/wheezing Losartan Potassium 50 mg 09/20/18 10:45 09/20/18 12:21 Cozaar PO 50 mg DAILY BLANK Administration Methylprednisolone 50 mg 09/23/18 12:51 09/24/18 05:46 Solu-Medrol IVP 50 mg Q8 BLANK Administration Montelukast Sodium 10 mg 09/20/18 22:15 09/23/18 22:27 Singulair PO 10 mg HS BLANK Administration Pantoprazole Sodium 40 mg 09/22/18 10:00 09/23/18 10:17 Protonix Inj IVP 40 mg DAILY BLANK Administration - Patient Studies Lab Studies: Microbiology Studies 09/20/18 03:30 Blood Culture - Preliminary Blood-Venous NO GROWTH AFTER 4 DAYS 09/20/18 03:12 Blood Culture - Preliminary Blood-Venous NO GROWTH AFTER 4 DAYS 09/20/18 20:52 MRSA Culture (Admit) - Final Nose MRSA NOT DETECTED Lab Studies 09/24/18 09/24/18 09/23/18 Range/Units 06:00 05:30 11:55 WBC 10.5 (4.5-11.0) 10^3/uL RBC 4.20 (3.5-6.1) 10^6/uL Hgb 12.6 L (14.0-18.0) g/dL Hct 40.3 L (42.0-52.0) % MCV 96.0 (80.0-105.0) fl MCH 30.0 (25.0-35.0) pg MCHC 31.3 (31.0-37.0) g/dl RDW 12.6 (11.5-14.5) % Plt Count 133 (120.0-450.0) 10^3/uL MPV 10.2 (7.0-11.0) fl Gran % 96.0 H (50.0-68.0) % Lymph % (Auto) 3.2 L (22.0-35.0) % [place] % (Auto) 0.8 L (1.0-6.0) % Eos % (Auto) 0.0 L (1.5-5.0) % Baso % (Auto) 0.0 (0.0-3.0) % Gran # 10.10 H (1.4-6.5) Lymph # (Auto) 0.3 L (1.2-3.4) [place] # (Auto) 0.1 (0.1-0.6) Eos # (Auto) 0.0 (0.0-0.7) Baso # (Auto) 0.00 (0.0-2.0) K/mm3 pCO2 45 (35-45) mm/Hg pO2 81.0 (80-100) mm/Hg HCO3 26.6 (21-28) mmol/L ABG pH 7.38 (7.35-7.45) ABG Total CO2 28.0 (22-28) mmol.L ABG O2 Saturation 98.0 (95-98) % ABG O2 Content 16.6 (15-23) ML/dl ABG Base Excess 1.1 (-2.0-3.0) mmol/L ABG Hemoglobin 12.3 (11.7-17.4) g/dL ABG Carboxyhemoglobin 1.5 (0.5-1.5) % POC ABG HHb (Measured) 2.0 (0-5) % ABG Methemoglobin 0.8 (0.0-3.0) % ABG O2 Capacity 16.9 (16-24) mL/dl Hgb O2 Saturation 95.6 (95.0-98.0) % FiO2 35.0 % Sodium (132-148) mmol/L Potassium (3.6-5.0) mmol/L Chloride (98-107) mmol/L Carbon Dioxide (21-33) mmol/L Anion Gap (10-20) BUN (7-21) mg/dL Creatinine (0.8-1.5) mg/dl Est GFR ( Amer) Est GFR (Non-Af Amer) Random Glucose (70-110) mg/dL Calcium (8.4-10.5) mg/dL Total Bilirubin (0.2-1.3) mg/dL AST (17-59) U/L ALT (7-56) U/L Alkaline Phosphatase (38-126) U/L Total Protein (5.8-8.3) g/dL Albumin (3.0-4.8) g/dL Globulin gm/dL Albumin/Globulin Ratio (1.1-1.8) 25-OH Vitamin D Total (30.0-100.0) NG/ML Procalcitonin (0.19-0.49) NG/ML Urine Color Yellow (YELLOW) Urine Appearance Sl cloudy (CLEAR) Urine pH 6.0 (4.7-8.0) Ur Specific [place] 1.025 (1.005-1.035) Urine Protein Negative (<30 mg/dL) mg/dL Urine Glucose (UA) Negative (NEGATIVE) mg/dL Urine Ketones 15 H (NEGATIVE) mg/dL Urine Blood Moderate H (NEGATIVE) Urine Nitrate Negative (NEGATIVE) Urine Bilirubin Negative (NEGATIVE) Urine Urobilinogen 0.2 (<1 E.U./dL) E.U./dL Ur Leukocyte Esterase Trace H (NEGATIVE) [place]/uL Urine RBC 5 - 10 (0-2) /hpf Urine WBC 5 - 10 (0-6) /hpf Ur Epithelial Cells 1 - 3 (0-5) /hpf Urine Bacteria Few (NEG) Urine Other Uyeast Ur Random Creatinine (20-320) mg/dL U Random Total Protein (22-128) mg/g creat Urine Total Volume mg/dL Microalb/Creat Ratio (<30) 09/23/18 09/23/18 09/23/18 Range/Units 06:30 06:30 06:30 WBC 10.2 (4.5-11.0) 10^3/uL RBC 3.91 (3.5-6.1) 10^6/uL Hgb 11.8 L (14.0-18.0) g/dL Hct 38.0 L (42.0-52.0) % MCV 97.2 (80.0-105.0) fl MCH 30.2 (25.0-35.0) pg MCHC 31.1 (31.0-37.0) g/dl RDW 12.6 (11.5-14.5) % Plt Count 133 (120.0-450.0) 10^3/uL MPV 10.0 (7.0-11.0) fl Gran % 95.8 H (50.0-68.0) % Lymph % (Auto) 4.1 L (22.0-35.0) % [place] % (Auto) 0.1 L (1.0-6.0) % Eos % (Auto) 0.0 L (1.5-5.0) % Baso % (Auto) 0.0 (0.0-3.0) % Gran # 9.81 H (1.4-6.5) Lymph # (Auto) 0.4 L (1.2-3.4) [place] # (Auto) 0.0 L (0.1-0.6) Eos # (Auto) 0.0 (0.0-0.7) Baso # (Auto) 0.00 (0.0-2.0) K/mm3 pCO2 (35-45) mm/Hg pO2 (80-100) mm/Hg HCO3 (21-28) mmol/L ABG pH (7.35-7.45) ABG Total CO2 (22-28) mmol.L ABG O2 Saturation (95-98) % ABG O2 Content (15-23) ML/dl ABG Base Excess (-2.0-3.0) mmol/L ABG Hemoglobin (11.7-17.4) g/dL ABG Carboxyhemoglobin (0.5-1.5) % POC ABG HHb (Measured) (0-5) % ABG Methemoglobin (0.0-3.0) % ABG O2 Capacity (16-24) mL/dl Hgb O2 Saturation (95.0-98.0) % FiO2 % Sodium 148 (132-148) mmol/L Potassium 4.4 (3.6-5.0) mmol/L Chloride 121 H (98-107) mmol/L Carbon Dioxide 24 (21-33) mmol/L Anion Gap 7 L (10-20) BUN 45 H (7-21) mg/dL Creatinine 1.2 (0.8-1.5) mg/dl Est GFR ( Amer) > 60 Est GFR (Non-Af Amer) 60 Random Glucose 111 H (70-110) mg/dL Calcium 8.2 L (8.4-10.5) mg/dL Total Bilirubin 0.3 (0.2-1.3) mg/dL AST 54 (17-59) U/L ALT 41 (7-56) U/L Alkaline Phosphatase 43 (38-126) U/L Total Protein 5.3 L (5.8-8.3) g/dL Albumin 2.9 L (3.0-4.8) g/dL Globulin 2.4 gm/dL Albumin/Globulin Ratio 1.2 (1.1-1.8) 25-OH Vitamin D Total (30.0-100.0) NG/ML Procalcitonin 0.10 L (0.19-0.49) NG/ML Urine Color (YELLOW) Urine Appearance (CLEAR) Urine pH (4.7-8.0) Ur Specific [place] (1.005-1.035) Urine Protein (<30 mg/dL) mg/dL Urine Glucose (UA) (NEGATIVE) mg/dL Urine Ketones (NEGATIVE) mg/dL Urine Blood (NEGATIVE) Urine Nitrate (NEGATIVE) Urine Bilirubin (NEGATIVE) Urine Urobilinogen (<1 E.U./dL) E.U./dL Ur Leukocyte Esterase (NEGATIVE) [place]/uL Urine RBC (0-2) /hpf Urine WBC (0-6) /hpf Ur Epithelial Cells (0-5) /hpf Urine Bacteria (NEG) Urine Other Ur Random Creatinine (20-320) mg/dL U Random Total Protein (22-128) mg/g creat Urine Total Volume mg/dL Microalb/Creat Ratio (<30) 09/23/18 09/23/18 09/22/18 Range/Units 05:50 05:20 16:35 WBC (4.5-11.0) 10^3/uL RBC (3.5-6.1) 10^6/uL Hgb (14.0-18.0) g/dL Hct (42.0-52.0) % MCV (80.0-105.0) fl MCH (25.0-35.0) pg MCHC (31.0-37.0) g/dl RDW (11.5-14.5) % Plt Count (120.0-450.0) 10^3/uL MPV (7.0-11.0) fl Gran % (50.0-68.0) % Lymph % (Auto) (22.0-35.0) % [place] % (Auto) (1.0-6.0) % Eos % (Auto) (1.5-5.0) % Baso % (Auto) (0.0-3.0) % Gran # (1.4-6.5) Lymph # (Auto) (1.2-3.4) [place] # (Auto) (0.1-0.6) Eos # (Auto) (0.0-0.7) Baso # (Auto) (0.0-2.0) K/mm3 pCO2 42 (35-45) mm/Hg pO2 224.0 H (80-100) mm/Hg HCO3 23.2 (21-28) mmol/L ABG pH 7.35 (7.35-7.45) ABG Total CO2 24.5 (22-28) mmol.L ABG O2 Saturation 99.6 H (95-98) % ABG O2 Content 16.5 (15-23) ML/dl ABG Base Excess -2.4 L (-2.0-3.0) mmol/L ABG Hemoglobin 11.7 (11.7-17.4) g/dL ABG Carboxyhemoglobin 1.3 (0.5-1.5) % POC ABG HHb (Measured) 0.4 (0-5) % ABG Methemoglobin 0.9 (0.0-3.0) % ABG O2 Capacity 16.6 (16-24) mL/dl Hgb O2 Saturation 97.4 (95.0-98.0) % FiO2 40.0 % Sodium (132-148) mmol/L Potassium (3.6-5.0) mmol/L Chloride (98-107) mmol/L Carbon Dioxide (21-33) mmol/L Anion Gap (10-20) BUN (7-21) mg/dL Creatinine (0.8-1.5) mg/dl Est GFR ( Amer) Est GFR (Non-Af Amer) Random Glucose (70-110) mg/dL Calcium (8.4-10.5) mg/dL Total Bilirubin (0.2-1.3) mg/dL AST (17-59) U/L ALT (7-56) U/L Alkaline Phosphatase (38-126) U/L Total Protein (5.8-8.3) g/dL Albumin (3.0-4.8) g/dL Globulin gm/dL Albumin/Globulin Ratio (1.1-1.8) 25-OH Vitamin D Total 13.5 L (30.0-100.0) NG/ML Procalcitonin (0.19-0.49) NG/ML Urine Color (YELLOW) Urine Appearance (CLEAR) Urine pH (4.7-8.0) Ur Specific [place] (1.005-1.035) Urine Protein (<30 mg/dL) mg/dL Urine Glucose (UA) (NEGATIVE) mg/dL Urine Ketones (NEGATIVE) mg/dL Urine Blood (NEGATIVE) Urine Nitrate (NEGATIVE) Urine Bilirubin (NEGATIVE) Urine Urobilinogen (<1 E.U./dL) E.U./dL Ur Leukocyte Esterase (NEGATIVE) [place]/uL Urine RBC (0-2) /hpf Urine WBC (0-6) /hpf Ur Epithelial Cells (0-5) /hpf Urine Bacteria (NEG) Urine Other Ur Random Creatinine 85 (20-320) mg/dL U Random Total Protein (22-128) mg/g creat Urine Total Volume 2.2 mg/dL Microalb/Creat Ratio 26 (<30) 11/28/18 Range/Units 16:35 WBC (4.5-11.0) 10^3/uL RBC (3.5-6.1) 10^6/uL Hgb (14.0-18.0) g/dL Hct (42.0-52.0) % MCV (80.0-105.0) fl MCH (25.0-35.0) pg MCHC (31.0-37.0) g/dl RDW (11.5-14.5) % Plt Count (120.0-450.0) 10^3/uL MPV (7.0-11.0) fl Gran % (50.0-68.0) % Lymph % (Auto) (22.0-35.0) % [place] % (Auto) (1.0-6.0) % Eos % (Auto) (1.5-5.0) % Baso % (Auto) (0.0-3.0) % Gran # (1.4-6.5) Lymph # (Auto) (1.2-3.4) [place] # (Auto) (0.1-0.6) Eos # (Auto) (0.0-0.7) Baso # (Auto) (0.0-2.0) K/mm3 pCO2 (35-45) mm/Hg pO2 (80-100) mm/Hg HCO3 (21-28) mmol/L ABG pH (7.35-7.45) ABG Total CO2 (22-28) mmol.L ABG O2 Saturation (95-98) % ABG O2 Content (15-23) ML/dl ABG Base Excess (-2.0-3.0) mmol/L ABG Hemoglobin (11.7-17.4) g/dL ABG Carboxyhemoglobin (0.5-1.5) % POC ABG HHb (Measured) (0-5) % ABG Methemoglobin (0.0-3.0) % ABG O2 Capacity (16-24) mL/dl Hgb O2 Saturation (95.0-98.0) % FiO2 % Sodium (132-148) mmol/L Potassium (3.6-5.0) mmol/L Chloride (98-107) mmol/L Carbon Dioxide (21-33) mmol/L Anion Gap (10-20) BUN (7-21) mg/dL Creatinine (0.8-1.5) mg/dl Est GFR ( Amer) Est GFR (Non-Af Amer) Random Glucose (70-110) mg/dL Calcium (8.4-10.5) mg/dL Total Bilirubin (0.2-1.3) mg/dL AST (17-59) U/L ALT (7-56) U/L Alkaline Phosphatase (38-126) U/L Total Protein (5.8-8.3) g/dL Albumin (3.0-4.8) g/dL Globulin gm/dL Albumin/Globulin Ratio (1.1-1.8) 25-OH Vitamin D Total (30.0-100.0) NG/ML Procalcitonin (0.19-0.49) NG/ML Urine Color (YELLOW) Urine Appearance (CLEAR) Urine pH (4.7-8.0) Ur Specific [place] (1.005-1.035) Urine Protein (<30 mg/dL) mg/dL Urine Glucose (UA) (NEGATIVE) mg/dL Urine Ketones (NEGATIVE) mg/dL Urine Blood (NEGATIVE) Urine Nitrate (NEGATIVE) Urine Bilirubin (NEGATIVE) Urine Urobilinogen (<1 E.U./dL) E.U./dL Ur Leukocyte Esterase (NEGATIVE) [place]/uL Urine RBC (0-2) /hpf Urine WBC (0-6) /hpf Ur Epithelial Cells (0-5) /hpf Urine Bacteria (NEG) Urine Other Ur Random Creatinine (20-320) mg/dL U Random Total Protein 176 H (22-128) mg/g creat Urine Total Volume mg/dL Microalb/Creat Ratio (<30) Laboratory Results - last 24 hr 09/22/18 09/22/18 09/23/18 16:35 16:35 05:20 WBC RBC Hgb Hct MCV MCH MCHC RDW Plt Count MPV Gran % Lymph % (Auto) [place] % (Auto) Eos % (Auto) Baso % (Auto) Gran # Lymph # (Auto) [place] # (Auto) Eos # (Auto) Baso # (Auto) pCO2 pO2 HCO3 ABG pH ABG Total CO2 ABG O2 Saturation ABG O2 Content ABG Base Excess ABG Hemoglobin ABG Carboxyhemoglobin POC ABG HHb (Measured) ABG Methemoglobin ABG O2 Capacity Hgb O2 Saturation FiO2 Sodium Potassium Chloride Carbon Dioxide Anion Gap BUN Creatinine Est GFR ( Amer) Est GFR (Non-Af Amer) Random Glucose Calcium Total Bilirubin AST ALT Alkaline Phosphatase Total Protein Albumin Globulin Albumin/Globulin Ratio 25-OH Vitamin D Total 13.5 L Procalcitonin Urine Color Urine Appearance Urine pH Ur Specific [place] Urine Protein Urine Glucose (UA) Urine Ketones Urine Blood Urine Nitrate Urine Bilirubin Urine Urobilinogen Ur Leukocyte Esterase Urine RBC Urine WBC Ur Epithelial Cells Urine Bacteria Urine Other Ur Random Creatinine 85 U Random Total Protein 176 H Urine Total Volume 2.2 Microalb/Creat Ratio 26 09/23/18 09/23/18 09/23/18 05:50 06:30 06:30 WBC 10.2 RBC 3.91 Hgb 11.8 L Hct 38.0 L MCV 97.2 MCH 30.2 MCHC 31.1 RDW 12.6 Plt Count 133 MPV 10.0 Gran % 95.8 H Lymph % (Auto) 4.1 L [place] % (Auto) 0.1 L Eos % (Auto) 0.0 L Baso % (Auto) 0.0 Gran # 9.81 H Lymph # (Auto) 0.4 L [place] # (Auto) 0.0 L Eos # (Auto) 0.0 Baso # (Auto) 0.00 pCO2 42 pO2 224.0 H HCO3 23.2 ABG pH 7.35 ABG Total CO2 24.5 ABG O2 Saturation 99.6 H ABG O2 Content 16.5 ABG Base Excess -2.4 L ABG Hemoglobin 11.7 ABG Carboxyhemoglobin 1.3 POC ABG HHb (Measured) 0.4 ABG Methemoglobin 0.9 ABG O2 Capacity 16.6 Hgb O2 Saturation 97.4 FiO2 40.0 Sodium Potassium Chloride Carbon Dioxide Anion Gap BUN Creatinine Est GFR ( Amer) Est GFR (Non-Af Amer) Random Glucose Calcium Total Bilirubin AST ALT Alkaline Phosphatase Total Protein Albumin Globulin Albumin/Globulin Ratio 25-OH Vitamin D Total Procalcitonin 0.10 L Urine Color Urine Appearance Urine pH Ur Specific [place] Urine Protein Urine Glucose (UA) Urine Ketones Urine Blood Urine Nitrate Urine Bilirubin Urine Urobilinogen Ur Leukocyte Esterase Urine RBC Urine WBC Ur Epithelial Cells Urine Bacteria Urine Other Ur Random Creatinine U Random Total Protein Urine Total Volume Microalb/Creat Ratio 09/23/18 09/23/18 09/24/18 06:30 11:55 05:30 WBC 10.5 RBC 4.20 Hgb 12.6 L Hct 40.3 L MCV 96.0 MCH 30.0 MCHC 31.3 RDW 12.6 Plt Count 133 MPV 10.2 Gran % 96.0 H Lymph % (Auto) 3.2 L [place] % (Auto) 0.8 L Eos % (Auto) 0.0 L Baso % (Auto) 0.0 Gran # 10.10 H Lymph # (Auto) 0.3 L [place] # (Auto) 0.1 Eos # (Auto) 0.0 Baso # (Auto) 0.00 pCO2 pO2 HCO3 ABG pH ABG Total CO2 ABG O2 Saturation ABG O2 Content ABG Base Excess ABG Hemoglobin ABG Carboxyhemoglobin POC ABG HHb (Measured) ABG Methemoglobin ABG O2 Capacity Hgb O2 Saturation FiO2 Sodium 148 Potassium 4.4 Chloride 121 H Carbon Dioxide 24 Anion Gap 7 L BUN 45 H Creatinine 1.2 Est GFR ( Amer) > 60 Est GFR (Non-Af Amer) 60 Random Glucose 111 H Calcium 8.2 L Total Bilirubin 0.3 AST 54 ALT 41 Alkaline Phosphatase 43 Total Protein 5.3 L Albumin 2.9 L Globulin 2.4 Albumin/Globulin Ratio 1.2 25-OH Vitamin D Total Procalcitonin Urine Color Yellow Urine Appearance Sl cloudy Urine pH 6.0 Ur Specific [place] 1.025 Urine Protein Negative Urine Glucose (UA) Negative Urine Ketones 15 H Urine Blood Moderate H Urine Nitrate Negative Urine Bilirubin Negative Urine Urobilinogen 0.2 Ur Leukocyte Esterase Trace H Urine RBC 5 - 10 Urine WBC 5 - 10 Ur Epithelial Cells 1 - 3 Urine Bacteria Few Urine Other Uyeast Ur Random Creatinine U Random Total Protein Urine Total Volume Microalb/Creat Ratio 09/24/18 06:00 WBC RBC Hgb Hct MCV MCH MCHC RDW Plt Count MPV Gran % Lymph % (Auto) [place] % (Auto) Eos % (Auto) Baso % (Auto) Gran # Lymph # (Auto) [place] # (Auto) Eos # (Auto) Baso # (Auto) pCO2 45 pO2 81.0 HCO3 26.6 ABG pH 7.38 ABG Total CO2 28.0 ABG O2 Saturation 98.0 ABG O2 Content 16.6 ABG Base Excess 1.1 ABG Hemoglobin 12.3 ABG Carboxyhemoglobin 1.5 POC ABG HHb (Measured) 2.0 ABG Methemoglobin 0.8 ABG O2 Capacity 16.9 Hgb O2 Saturation 95.6 FiO2 35.0 Sodium Potassium Chloride Carbon Dioxide Anion Gap BUN Creatinine Est GFR ( Amer) Est GFR (Non-Af Amer) Random Glucose Calcium Total Bilirubin AST ALT Alkaline Phosphatase Total Protein Albumin Globulin Albumin/Globulin Ratio 25-OH Vitamin D Total Procalcitonin Urine Color Urine Appearance Urine pH Ur Specific [place] Urine Protein Urine Glucose (UA) Urine Ketones Urine Blood Urine Nitrate Urine Bilirubin Urine Urobilinogen Ur Leukocyte Esterase Urine RBC Urine WBC Ur Epithelial Cells Urine Bacteria Urine Other Ur Random Creatinine U Random Total Protein Urine Total Volume Microalb/Creat Ratio Critical Care Progress Note - Nutrition Nutrition: Nutrition Category Date Time Status NPO Diet [DIET] Diets 09/22/18 Lunch Ordered Assessment/Plan - Assessment and Plan (Free Text) Assessment: 73 y/o male with PMH of COPD, asthma admitted to ICU for management of asthma exacerbation complicated with allergic reaction likely due to zithromax administration. He is intubated/sedated due to hypercapnic respiratory failure with mixed type acidosis that is improving Plan: Neuro: -sedated/ intubated on fentanyl, midazolam -maintain normothermia CVS: -h/o HTN, hold coozar, diltiazem -Maintain MAP>65 -trop negative x2 Resp: -hypercapnic respiratory failure with improved respiratory acidosis. On ventilation, weaning failed, continue vent -vent settin/20/360/35% -AB.38/45/81/26 improving -increase solu-medrol back to 60mg q8h. patient still wheezing with no improving after tapering yesterday -continue brovana, budesonide, duoneb -CXR: no acute infiltrate -LE doppler negative for DVT -maintain O2 sat >90% -continue oral hygiene -COPD exacerbation with possible allergic reaction to zithromax, SOB but no angioedema -pulmonology following, Dr Coughlin Renal: -AMPARO improving -BUN/Cr 45/1.1 -I&O 2255/1125 in last 24 hr -d/c LR -maintain euvolemia -avoid nephrotoxic drugs -Nephro (Dr Vegas) is following ID: -leukocytosis improving -continue doxycycline, meropenem -f/u sputum, urine cx -procal 0.1 -ID following GI: -transaminitis AST/ALT 60/44 -continue pepcid -started Jevity 1.2 rate 15ml/hr, increase by 10 and goal of 45. Free water fl ush 100ml/q6h MSK: -h/o gouty arthritis -hold colchicine, allopurinol Prophylaxis: -GI ppx: Pepcid -DVT ppx: heparin 5000U SQ NPO Dispo: continue sedation, intubation, steroid, bronchodilator, abx. strated feeding with Jevity Case reviewed and plan discussed with Dr. Kristian Vance, PGY1 <Natanael Townsend - Last Filed: 09/24/18 12:19> CCU Objective - Vital Signs / Intake & Output Vital Signs (Last 4 hours): Vital Signs Pulse BP Pulse Ox 09/24/18 09:20 98 H 95 09/24/18 09:10 97 H 95 09/24/18 09:00 99 H 154/91 H 94 L 09/24/18 08:50 100 H 95 09/24/18 08:40 97 H 96 09/24/18 08:30 100 H 96 09/24/18 08:20 94 H 96 Intake and Output (Last 8hrs): Intake & Output 09/23/18 09/24/18 09/24/18 22:59 06:59 14:59 Intake Total 1240 965 30 Output Total 550 575 Balance 690 390 30 Intake: IV 1240 965 30 IVF 1225 Right Hand 910 Output: Urine 550 575 Urethral ([place]) 550 575 Other: # Bowel Movements 0 - Medications Active Medications: Active Medications Generic Name Dose Route Start Last Admin Trade Name Freq PRN Reason Stop Dose Admin Albuterol/Ipratropium 3 ml 09/23/18 08:15 09/24/18 07:46 Duoneb 3 Mg/0.5 Mg (3 Ml) Ud IH 3 ml Q6H BLANK Administration Allopurinol 300 mg 09/20/18 11:00 09/20/18 12:23 Zyloprim PO 300 mg DAILY BLANK Administration Arformoterol Tartrate 15 mcg 09/20/18 20:00 09/24/18 07:45 Brovana IH 15 mcg [id number] BLANK Administration Budesonide 1 mg 09/20/18 20:00 09/24/18 07:46 Pulmicort Respules IH 1 mg [id number] BLANK Administration Famotidine 20 mg 09/24/18 18:00 Pepcid IVP DAILY BLANK Heparin Sodium (Porcine) 5,000 units 09/22/18 09:15 09/24/18 05:46 Heparin SC 5,000 units Q8 BLANK Administration Protocol Doxycycline Hyclate 100 mg/ 100 mls @ 100 mls/hr 09/21/18 10:00 09/24/18 09:27 Sodium Chloride IVPB 100 mls/hr Q12 BLANK Administration Protocol Propofol 1,000 mg in 100 mls @ 3.677 mls/hr 09/22/18 08:26 09/22/18 09:00 Diprivan IV 10 mcg/kg/min .Q24H PRN 3.677 mls/hr TITRATE PER MD ORDER Administration Protocol 10 MCG/KG/MIN Fentanyl Citrate 1,000 mcg in 100 mls @ 10 mls/hr 09/22/18 08:36 09/23/18 23:18 Fentanyl Citrate/Sodium Chloride 1 Mg/100 Ml IV 20 mcg/hr .Q10H PRN 2 mls/hr TITRATE PER MD ORDER Titration Protocol 100 MCG/HR Midazolam 100 mg/100ml in NS 100 mg in 100 mls @ 5 mls/hr 09/22/18 08:35 08:00 Midazolam 100 Mg/100ml In Ns IV 5 mg/hr .Q20H PRN 5 mls/hr Agitation Administration Protocol 5 MG/HR Meropenem/Sodium Chloride 500 mg in 50 mls @ 12.5 mls/hr 09/23/18 14:00 09/24/18 05:45 Merrem Iv 500 Mg/Ns 50 Ml IVPB 10/02/18 14:01 12.5 mls/hr Q8 BLANK Administration Protocol Ipratropium [place] 0.5 mg 09/20/18 13:58 Atrovent IH [id number] PRN Shortness of Breath Levalbuterol HCl 0.63 mg 09/21/18 05:30 09/22/18 19:39 Xopenex IH 0.63 mg Q2H PRN Administration sob/wheezing Losartan Potassium 50 mg 09/20/18 10:45 09/20/18 12:21 Cozaar PO 50 mg DAILY BLANK Administration Losartan Potassium 50 mg 09/24/18 12:15 Cozaar NG DAILY BLANK Methylprednisolone 60 mg 09/24/18 10:40 Solu-Medrol IVP Q8 BLANK Montelukast Sodium 10 mg 09/20/18 22:15 09/23/18 22:27 Singulair PO 10 mg HS BLANK Administration - Patient Studies Lab Studies: Microbiology Studies 09/20/18 03:30 Blood Culture - Preliminary Blood-Venous NO GROWTH AFTER 4 DAYS 09/20/18 03:12 Blood Culture - Preliminary Blood-Venous NO GROWTH AFTER 4 DAYS 09/20/18 20:52 MRSA Culture (Admit) - Final Nose MRSA NOT DETECTED Lab Studies 09/24/18 09/24/18 09/24/18 Range/Units 06:00 05:30 05:30 WBC 10.5 (4.5-11.0) 10^3/uL RBC 4.20 (3.5-6.1) 10^6/uL Hgb 12.6 L (14.0-18.0) g/dL Hct 40.3 L (42.0-52.0) % MCV 96.0 (80.0-105.0) fl MCH 30.0 (25.0-35.0) pg MCHC 31.3 (31.0-37.0) g/dl RDW 12.6 (11.5-14.5) % Plt Count 133 (120.0-450.0) 10^3/uL MPV 10.2 (7.0-11.0) fl Gran % 96.0 H (50.0-68.0) % Lymph % (Auto) 3.2 L (22.0-35.0) % [place] % (Auto) 0.8 L (1.0-6.0) % Eos % (Auto) 0.0 L (1.5-5.0) % Baso % (Auto) 0.0 (0.0-3.0) % Gran # 10.10 H (1.4-6.5) Lymph # (Auto) 0.3 L (1.2-3.4) [place] # (Auto) 0.1 (0.1-0.6) Eos # (Auto) 0.0 (0.0-0.7) Baso # (Auto) 0.00 (0.0-2.0) K/mm3 Neutrophils % (Manual) 97 H (50.0-70.0) % Lymphocytes % (Manual) 2 L (22.0-35.0) % Monocytes % (Manual) 1 (1.0-6.0) % Platelet Evaluation Normal (NORMAL) pCO2 45 (35-45) mm/Hg pO2 81.0 (80-100) mm/Hg HCO3 26.6 (21-28) mmol/L ABG pH 7.38 (7.35-7.45) ABG Total CO2 28.0 (22-28) mmol.L ABG O2 Saturation 98.0 (95-98) % ABG O2 Content 16.6 (15-23) ML/dl ABG Base Excess 1.1 (-2.0-3.0) mmol/L ABG Hemoglobin 12.3 (11.7-17.4) g/dL ABG Carboxyhemoglobin 1.5 (0.5-1.5) % POC ABG HHb (Measured) 2.0 (0-5) % ABG Methemoglobin 0.8 (0.0-3.0) % ABG O2 Capacity 16.9 (16-24) mL/dl Hgb O2 Saturation 95.6 (95.0-98.0) % FiO2 35.0 % Sodium 150 H (132-148) mmol/L Potassium 4.4 (3.6-5.0) mmol/L Chloride 122 H (98-107) mmol/L Carbon Dioxide 26 (21-33) mmol/L Anion Gap 6 L (10-20) BUN 48 H (7-21) mg/dL Creatinine 1.1 (0.8-1.5) mg/dl Est GFR ( Amer) > 60 Est GFR (Non-Af Amer) > 60 Random Glucose 124 H (70-110) mg/dL Calcium 8.3 L (8.4-10.5) mg/dL Total Bilirubin 0.4 (0.2-1.3) mg/dL AST 35 (17-59) U/L ALT 45 (7-56) U/L Alkaline Phosphatase 42 (38-126) U/L Total Protein 5.5 L (5.8-8.3) g/dL Albumin 3.0 (3.0-4.8) g/dL Globulin 2.5 gm/dL Albumin/Globulin Ratio 1.2 (1.1-1.8) 25-OH Vitamin D Total (30.0-100.0) NG/ML Procalcitonin (0.19-0.49) NG/ML U Random Total Protein (22-128) mg/g creat 09/23/18 09/23/18 09/22/18 Range/Units 06:30 05:20 16:35 WBC (4.5-11.0) 10^3/uL RBC (3.5-6.1) 10^6/uL Hgb (14.0-18.0) g/dL Hct (42.0-52.0) % MCV (80.0-105.0) fl MCH (25.0-35.0) pg MCHC (31.0-37.0) g/dl RDW (11.5-14.5) % Plt Count (120.0-450.0) 10^3/uL MPV (7.0-11.0) fl Gran % (50.0-68.0) % Lymph % (Auto) (22.0-35.0) % [place] % (Auto) (1.0-6.0) % Eos % (Auto) (1.5-5.0) % Baso % (Auto) (0.0-3.0) % Gran # (1.4-6.5) Lymph # (Auto) (1.2-3.4) [place] # (Auto) (0.1-0.6) Eos # (Auto) (0.0-0.7) Baso # (Auto) (0.0-2.0) K/mm3 Neutrophils % (Manual) (50.0-70.0) % Lymphocytes % (Manual) (22.0-35.0) % Monocytes % (Manual) (1.0-6.0) % Platelet Evaluation (NORMAL) pCO2 (35-45) mm/Hg pO2 (80-100) mm/Hg HCO3 (21-28) mmol/L ABG pH (7.35-7.45) ABG Total CO2 (22-28) mmol.L ABG O2 Saturation (95-98) % ABG O2 Content (15-23) ML/dl ABG Base Excess (-2.0-3.0) mmol/L ABG Hemoglobin (11.7-17.4) g/dL ABG Carboxyhemoglobin (0.5-1.5) % POC ABG HHb (Measured) (0-5) % ABG Methemoglobin (0.0-3.0) % ABG O2 Capacity (16-24) mL/dl Hgb O2 Saturation (95.0-98.0) % FiO2 % Sodium (132-148) mmol/L Potassium (3.6-5.0) mmol/L Chloride (98-107) mmol/L Carbon Dioxide (21-33) mmol/L Anion Gap (10-20) BUN (7-21) mg/dL Creatinine (0.8-1.5) mg/dl Est GFR ( Amer) Est GFR (Non-Af Amer) Random Glucose (70-110) mg/dL Calcium (8.4-10.5) mg/dL Total Bilirubin (0.2-1.3) mg/dL AST (17-59) U/L ALT (7-56) U/L Alkaline Phosphatase (38-126) U/L Total Protein (5.8-8.3) g/dL Albumin (3.0-4.8) g/dL Globulin gm/dL Albumin/Globulin Ratio (1.1-1.8) 25-OH Vitamin D Total 13.5 L (30.0-100.0) NG/ML Procalcitonin 0.10 L (0.19-0.49) NG/ML U Random Total Protein 176 H (22-128) mg/g creat Laboratory Results - last 24 hr 09/22/18 09/23/18 09/23/18 16:35 05:20 06:30 WBC RBC Hgb Hct MCV MCH MCHC RDW Plt Count MPV Gran % Lymph % (Auto) [place] % (Auto) Eos % (Auto) Baso % (Auto) Gran # Lymph # (Auto) [place] # (Auto) Eos # (Auto) Baso # (Auto) Neutrophils % (Manual) Lymphocytes % (Manual) Monocytes % (Manual) Platelet Evaluation pCO2 pO2 HCO3 ABG pH ABG Total CO2 ABG O2 Saturation ABG O2 Content ABG Base Excess ABG Hemoglobin ABG Carboxyhemoglobin POC ABG HHb (Measured) ABG Methemoglobin ABG O2 Capacity Hgb O2 Saturation FiO2 Sodium Potassium Chloride Carbon Dioxide Anion Gap BUN Creatinine Est GFR ( Amer) Est GFR (Non-Af Amer) Random Glucose Calcium Total Bilirubin AST ALT Alkaline Phosphatase Total Protein Albumin Globulin Albumin/Globulin Ratio 25-OH Vitamin D Total 13.5 L Procalcitonin 0.10 L U Random Total Protein 176 H 09/24/18 09/24/18 09/24/18 05:30 05:30 06:00 WBC 10.5 RBC 4.20 Hgb 12.6 L Hct 40.3 L MCV 96.0 MCH 30.0 MCHC 31.3 RDW 12.6 Plt Count 133 MPV 10.2 Gran % 96.0 H Lymph % (Auto) 3.2 L [place] % (Auto) 0.8 L Eos % (Auto) 0.0 L Baso % (Auto) 0.0 Gran # 10.10 H Lymph # (Auto) 0.3 L [place] # (Auto) 0.1 Eos # (Auto) 0.0 Baso # (Auto) 0.00 Neutrophils % (Manual) 97 H Lymphocytes % (Manual) 2 L Monocytes % (Manual) 1 Platelet Evaluation Normal pCO2 45 pO2 81.0 HCO3 26.6 ABG pH 7.38 ABG Total CO2 28.0 ABG O2 Saturation 98.0 ABG O2 Content 16.6 ABG Base Excess 1.1 ABG Hemoglobin 12.3 ABG Carboxyhemoglobin 1.5 POC ABG HHb (Measured) 2.0 ABG Methemoglobin 0.8 ABG O2 Capacity 16.9 Hgb O2 Saturation 95.6 FiO2 35.0 Sodium 150 H Potassium 4.4 Chloride 122 H Carbon Dioxide 26 Anion Gap 6 L BUN 48 H Creatinine 1.1 Est GFR ( Amer) > 60 Est GFR (Non-Af Amer) > 60 Random Glucose 124 H Calcium 8.3 L Total Bilirubin 0.4 AST 35 ALT 45 Alkaline Phosphatase 42 Total Protein 5.5 L Albumin 3.0 Globulin 2.5 Albumin/Globulin Ratio 1.2 25-OH Vitamin D Total Procalcitonin U Random Total Protein Critical Care Progress Note - Nutrition Nutrition: Nutrition Category Date Time Status NPO Diet [DIET] Diets 09/22/18 Lunch Ordered Attending/Attestation - Attestation I have personally seen and examined this patient.: Yes I have fully participated in the care of the patient.: Yes I have reviewed all pertinent clinical information: Yes Notes (Text): 09/24/18 12:14 The patient was seen and examined at the bedside. Patient care was discussed with resident Medical records, lab studies, and imaging were reviewed and management issues were discussed and formulated. Last 24H events reviewed. Agree with above treatment plans as outlined in 's note with addition of the following: Acute Respiratory Failure \ COPD \Hypercapnea \ Hypoxemia \ ro Sepsis \ AMPARO -hemodynamic monitoring to maintain MAP>65 -mechanical ventilation and o2 supplementation to maintain Spo2 >90 Pao2>60 -monitor for TV 6ml\kg IBW and plateau pressure <30 -ABG in AM and CXR reviewed -PS trial not tolerated this morning -continue nebs and steroids and pulmonary toileting -continue empiric broad spectrum Abx as per ID team and f\u cultures -f\u Bun\Cr and U\o; monitor and replace e-lites; monitor serum Na+ -start Tube feds diet and free water and continue aspiration precautions -DVT \ PUD prophylaxis CCM time 35min
[2018-09-24] MEDS: Arformoterol 15 mcg/2 ml Inh Sol IH SCH ×2 (07:45→20:59)
[2018-09-24] MEDS: Budesonide 0.5 mg/2 ml Inhal Susp UD IH SCH ×2 (07:46→20:55)
[2018-09-24] MEDS: Midazolam 100 mg/100ml in NS 100 MG/100 ML SOL IV PRN (08:00)
[2018-09-24 08:16] LABS: ALB/GLOB RATIO 1.2 (1.1-1.8); ALT/SGPT 45 U/L (7-56); AST/SGOT 35 U/L (17-59); BLOOD UREA NITROGEN 48 mg/dL (7-21); CALCIUM 8.3 mg/dL (8.4-10.5); GFR NON-AFRICAN AMERICAN > 60
[2018-09-24 08:19] LABS: LYMPHOCYTE 2 % (22.0-35.0); MONOCYTE 1 % (1.0-6.0); NEUTROPHIL 97 % (50.0-70.0); PLATELET ESTIMATE NORMAL (NORMAL)
--- NOTE | 2018-09-24 09:22 | RAD ---
Date of service: 09/24/2018 HISTORY: intubated COMPARISON: 09/23/2018 FINDINGS: LUNGS: No active pulmonary disease. PLEURA: No significant pleural effusion identified, no pneumothorax apparent. CARDIOVASCULAR: Minimal aortic calcification Normal cardiac size. No pulmonary vascular congestion. OSSEOUS STRUCTURES: No significant abnormalities. VISUALIZED UPPER ABDOMEN: Normal. OTHER FINDINGS: The endotracheal tube and nasogastric tube are in satisfactory position IMPRESSION: No active disease.
--- NOTE | 2018-09-24 13:39 | CP.PCM.PN ---
Subjective - Date & Time of Evaluation Date of Evaluation: 09/24/18 Time of Evaluation: 13:38 - Subjective Subjective: Nephrology Consultation Note: Assessment: critical Acute Kidney Injury (N17.9) likely hemodynamic and pre-renal state due to diuresis, ATN: improved with IVF hyperkalemia, hypernatremia combined respi and metabolic acidosis acute on chronic hypercapnic respi failure with COPD/asthma exacerbation Vit D def Plan No acute need for renal replacement therapy at this time. Maintain hemodynamics stable. Avoid hypotension. Patient not on ACEI/ARB due to recent AMPARO. resume now Monitor Input/Output, daily weights and renal function with basic metabolic panel free water via NG tube, 250 mL q 4 hr, if pt unable to tolerate water then add D5W drip @ 75 ml/hr will add vit D once on diet Dose meds/antibiotics for improved GFR. Glycemic control Further work up/management as per primary team Thanks for allowing me to participate in care of your patient. Will follow patient with you. Please call if any Qs. had d/w team Dr Ming [place] Office: [phone] Chief Complaint; unable to obtain Reason for consult: Acute Kidney Injury HPI: Pt is a 73 M with hx of copd/asthma presented with complaints of SOB and intubated for acute respi failure. renal consult for AMPARO. Denies OTC/herbal meds or NSAIDs No recent iodinated contrast exposure. Noted obvious episodes of low BP (80s). 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 intubated/sedated Vitals reviewed and noted as below Head; Atraumatic, normocephalic ENT: orally intubated EYES: Pupils are equal, round and reactive to light accommodation. Eye muscles and extraocular movement intact. Sclera is anicteric. Neck; supple no lymphadenopathy, no thyromegaly or bruit Lungs: Normal respiratory rate/effort. Breath sounds bilateral b/l improved Heart: Normal rate. s1s2 normal. No rub or gallop. Extremities: no edema. No varicose veins Neurological: Patient is sedated Skin: Warm and dry. Normal turgor. No rash. Palpitation: Normal elasticity for age Abdomen: Abdomen is soft. Bowel sounds +. There is no abdominal tenderness, no guarding/rigidity no organomegaly Psych: deferred MSK: no joint tenderness or swelling. Digits and nails normal, no deformity : kidney or bladder not palpable. has box Labs/imaging reviewed. Past medical history, past surgical history, family history, social history, allergy reviewed and noted as below Family hx: no hx of CKD. Rest non-contributory Objective - Vital Signs/Intake and Output Vital Signs (last 24 hours): Temp Pulse Resp BP Pulse Ox 97.8 F 98 H 22 154/91 H 95 09/24/18 04:00 09/24/18 09:20 09/24/18 07:44 09/24/18 09:00 09/24/18 09:20 Intake and Output: 09/24/18 09/24/18 06:59 18:59 Intake Total 980 30 Output Total 575 Balance 405 30 - Medications Medications: Current Medications Albuterol/Ipratropium (Duoneb 3 Mg/0.5 Mg (3 Ml) Ud) 3 ml IH Q6H [facility] Last Admin: 09/24/18 13:15 Dose: 3 ml Allopurinol (Zyloprim) 300 mg PO DAILY [facility] Last Admin: 09/20/18 12:23 Dose: 300 mg Arformoterol Tartrate (Brovana) 15 mcg IH [id number] [facility] Last Admin: 09/24/18 07:45 Dose: 15 mcg Budesonide (Pulmicort Respules) 1 mg IH [id number] [facility] Last Admin: 09/24/18 07:46 Dose: 1 mg Famotidine (Pepcid) 20 mg IVP DAILY [facility] Heparin Sodium (Porcine) (Heparin) 5,000 units SC Q8 [facility]; Protocol Last Admin: 09/24/18 05:46 Dose: 5,000 units Doxycycline Hyclate 100 mg/ (Sodium Chloride) 100 mls @ 100 mls/hr IVPB Q12 [facility]; Protocol Last Admin: 09/24/18 09:27 Dose: 100 mls/hr Propofol (Diprivan) 1,000 mg in 100 mls @ 3.677 mls/hr IV .Q24H PRN; Protocol PRN Reason: TITRATE PER MD ORDER Last Admin: 09/22/18 09:00 Dose: 10 mcg/kg/min, 3.677 mls/hr Fentanyl Citrate (Fentanyl Citrate/Sodium Chloride 1 Mg/100 Ml) 1,000 mcg in 100 mls @ 10 mls/hr IV .Q10H PRN; Protocol PRN Reason: TITRATE PER MD ORDER Last Titration: 09/23/18 23:18 Dose: 20 mcg/hr, 2 mls/hr Midazolam 100 mg/100ml in NS (Midazolam 100 Mg/100ml In Ns) 100 mg in 100 mls @ 5 mls/hr IV .Q20H PRN; Protocol PRN Reason: Agitation Last Admin: 09/24/18 08:00 Dose: 5 mg/hr, 5 mls/hr Meropenem/Sodium Chloride (Merrem Iv 500 Mg/Ns 50 Ml) 500 mg in 50 mls @ 12.5 mls/hr IVPB Q8 [facility]; Protocol Stop: 10/02/18 14:01 Last Admin: 09/24/18 05:45 Dose: 12.5 mls/hr Ipratropium [place] (Atrovent) 0.5 mg IH [id number] PRN PRN Reason: Shortness of Breath Levalbuterol HCl (Xopenex) 0.63 mg IH Q2H PRN PRN Reason: sob/wheezing Last Admin: 09/22/18 19:39 Dose: 0.63 mg Losartan Potassium (Cozaar) 50 mg PO DAILY [facility] Last Admin: 09/20/18 12:21 Dose: 50 mg Losartan Potassium (Cozaar) 50 mg NG DAILY BLANK Methylprednisolone (Solu-Medrol) 60 mg IVP Q8 BLANK Montelukast Sodium (Singulair) 10 mg PO HS BLANK Last Admin: 09/23/18 22:27 Dose: 10 mg - Labs Labs: 09/24/18 05:30 09/24/18 05:30
--- NOTE | 2018-09-24 19:00 | CP.PCM.PN ---
Subjective - Date & Time of Evaluation Date of Evaluation: 09/24/18 Time of Evaluation: 10:55 - Subjective Subjective: Continues to be on the ventilator, afebrile. Objective - Vital Signs/Intake and Output Vital Signs (last 24 hours): Temp Pulse Resp BP Pulse Ox 97.8 F 98 H 22 154/91 H 95 09/24/18 04:00 09/24/18 09:20 09/24/18 07:44 09/24/18 09:00 09/24/18 09:20 Intake and Output: 09/24/18 09/24/18 06:59 18:59 Intake Total 980 30 Output Total 575 Balance 405 30 - Medications Medications: Current Medications Albuterol/Ipratropium (Duoneb 3 Mg/0.5 Mg (3 Ml) Ud) 3 ml IH Q6H [facility] Last Admin: 09/24/18 07:46 Dose: 3 ml Allopurinol (Zyloprim) 300 mg PO DAILY [facility] Last Admin: 09/20/18 12:23 Dose: 300 mg Arformoterol Tartrate (Brovana) 15 mcg IH [id number] [facility] Last Admin: 09/24/18 07:45 Dose: 15 mcg Budesonide (Pulmicort Respules) 1 mg IH [id number] [facility] Last Admin: 09/24/18 07:46 Dose: 1 mg Heparin Sodium (Porcine) (Heparin) 5,000 units SC Q8 [facility]; Protocol Last Admin: 09/24/18 05:46 Dose: 5,000 units Doxycycline Hyclate 100 mg/ (Sodium Chloride) 100 mls @ 100 mls/hr IVPB Q12 [facility]; Protocol Last Admin: 09/24/18 09:27 Dose: 100 mls/hr Propofol (Diprivan) 1,000 mg in 100 mls @ 3.677 mls/hr IV .Q24H PRN; Protocol PRN Reason: TITRATE PER MD ORDER Last Admin: 09/22/18 09:00 Dose: 10 mcg/kg/min, 3.677 mls/hr Fentanyl Citrate (Fentanyl Citrate/Sodium Chloride 1 Mg/100 Ml) 1,000 mcg in 100 mls @ 10 mls/hr IV .Q10H PRN; Protocol PRN Reason: TITRATE PER MD ORDER Last Titration: 09/23/18 23:18 Dose: 20 mcg/hr, 2 mls/hr Midazolam 100 mg/100ml in NS (Midazolam 100 Mg/100ml In Ns) 100 mg in 100 mls @ 5 mls/hr IV .Q20H PRN; Protocol PRN Reason: Agitation Last Admin: 09/24/18 08:00 Dose: 5 mg/hr, 5 mls/hr Meropenem/Sodium Chloride (Merrem Iv 500 Mg/Ns 50 Ml) 500 mg in 50 mls @ 12.5 mls/hr IVPB Q8 [facility]; Protocol Stop: 10/02/18 14:01 Last Admin: 09/24/18 05:45 Dose: 12.5 mls/hr Lactated Ringer's (Lactated Ringer's) 1,000 mls @ 75 mls/hr IV .[id number] BL[facility] Last Admin: 09/23/18 22:50 Dose: 75 mls/hr Ipratropium [place] (Atrovent) 0.5 mg IH [id number] PRN PRN Reason: Shortness of Breath Levalbuterol HCl (Xopenex) 0.63 mg IH Q2H PRN PRN Reason: sob/wheezing Last Admin: 09/22/18 19:39 Dose: 0.63 mg Losartan Potassium (Cozaar) 50 mg PO DAILY [facility] Last Admin: 09/20/18 12:21 Dose: 50 mg Methylprednisolone (Solu-Medrol) 50 mg IVP Q8 [facility] Last Admin: 09/24/18 05:46 Dose: 50 mg Montelukast Sodium (Singulair) 10 mg PO HS [facility] Last Admin: 09/23/18 22:27 Dose: 10 mg Pantoprazole Sodium (Protonix Inj) 40 mg IVP DAILY [facility] Last Admin: 09/24/18 09:38 Dose: 40 mg - Labs Labs: 09/24/18 05:30 09/24/18 05:30 - Constitutional Appears: Chronically Ill, Other (intubated, sedated) - Head Exam Head Exam: NORMAL INSPECTION - Respiratory Exam Respiratory Exam: Decreased Breath Sounds - Cardiovascular Exam Cardiovascular Exam: +S1, +S2 - GI/Abdominal Exam GI & Abdominal Exam: Soft. absent: Tenderness Assessment and Plan - Assessment and Plan (Free Text) Plan: Assessment VDRF with hypoxemic respiratory failure due to COPD exacerbation, no evidence of pneumonia on chest xray history of inflammatory arthritis from gout S/P arthrocentesis, unlikely septic arthritis history of severe sepsis due to bilateral lower lobe HCAP maculopapular rash probably from Zosyn gout HTN COPD GERD Plan continue Doxycycline day 4 of 5 days; PCT is only 0.1 will continue to monitor clinically
--- NOTE | 2018-09-24 20:23 | PN ---
DATE: 09/24/2018 PULMONARY CRITICAL CARE PROGRESS NOTE REFERRING PHYSICIAN: Mary Roper MD SUBJECTIVE: The patient is intubated and sedated. Failed of weaning ventilator. ET tube, small amount of secretion. No hemoptysis or emesis. No hematuria. No diarrhea. No leg swelling reported. Has multiple joint deformities. OBJECTIVE: VITAL SIGNS: On ventilator. Temperature is 98, heart rate 89, respiratory rate is 14, blood pressure 145/76, pulse ox 97%, ventilator with 35% oxygen. HEENT: Moist mucous membrane. ET tube, no secretion. NECK: Supple. No JVD. CARDIOPULMONARY: S1 and S2. LUNGS: Have a few scattered rhonchi and few wheezing. ABDOMEN: Soft, nontender, nondistended. EXTREMITIES: No edema. NEUROLOGIC: Intubated and sedated. LABORATORY DATA: Shows hemoglobin 12.6, hematocrit 40.3, WBC 10.5, platelet count is 133. Blood gases show pH of 7.38, pCO2 is 45, O2 81. This is on ventilator, 35% oxygen. Sodium 150, potassium 4.4, chloride 122, bicarbonate 26, BUN 48, creatinine 1.1, glucose 124, calcium 8.3, AST 35, ALT 45, alk phos is 42, albumin 3.0. Procalcitonin is 0.10. Microbiology, blood culture and nares culture is unremarkable. Chest x-ray done today shows no infiltrate or effusion. MEDICATIONS: He is on Atrovent, inhaled every 6 hours, Brovana inhaled twice a day, Cozaar 50 mg daily. Also doxycycline 100 mg twice a day, vitamin D 50,000 units every 7 days, DuoNeb every 6 hours [id number]. He is on IV fentanyl, also heparin 5000 units subcutaneously every 8 hours, meropenem 500 mg every 8 hours, Versed IV drip, Pepcid 20 mg daily, Pulmicort inhaled twice a day, Singulair 10 mg at bedtime, Solu-Medrol 60 mg every 8 hours, Xopenex inhaled p.r.n. basis, allopurinol 300 mg daily. IMPRESSION AND PLAN: Respiratory failure, on ventilator secondary to severe obstructive lung disease, may have sleep apnea syndrome, gouty arthritis, hypertension, multiple drug allergies. Case discussed with nursing staff, also spoke to respiratory therapist. We will continue high dose of steroids, antibiotics, inhaled bronchodilator, gastric prophylaxis, and deep venous thrombosis prophylaxis. We will attempt to gain weaning the sedation down and see if we wean him off the ventilator. Follow up ABG, chest x-ray, CBC, CMP in the morning. Critical care time spent more than 35 minutes. Thank you and we will follow with you. Morgan Coughlin MD
[2018-09-25] MEDS: Propofol 10 mg/ml 1,000 MG/100 ML VIAL IV PRN (02:00)
[2018-09-25] MEDS: Midazolam 100 mg/100ml in NS 100 MG/100 ML SOL IV PRN (02:14)
[2018-09-25] MEDS: Albuterol-Ipratrop 3 mg / 0.5 (3 ml) UD IH SCH ×4 (02:46→20:31)
[2018-09-25] MEDS: MEROPENEM 500 MG in NS 500 MG/50 ML BAG IVPB SCH ×3 (05:50→21:07)
[2018-09-25 05:53] LABS: ALB/GLOB RATIO 1.2 (1.1-1.8); ALT/SGPT 51 U/L (7-56); AST/SGOT 38 U/L (17-59); BLOOD UREA NITROGEN 46 mg/dL (7-21); CALCIUM 8.1 mg/dL (8.4-10.5); GFR NON-AFRICAN AMERICAN > 60
[2018-09-25] MEDS ORDERED: Acetylcysteine 20% Inhal Sol (30ml) PO SCH (06:05)
[2018-09-25] MEDS: Ipratropium 0.02% Inhal Soln (0.5 mg/2.5 ml) UD IH PRN (06:06)
[2018-09-25 06:10] LABS: RBC 4.21 10^6/uL (3.5-6.1); WHITE BLOOD COUNT 13.2 10^3/uL (4.5-11.0)
[2018-09-25 06:11] LABS: BASO % 0.1 % (0.0-3.0); GRAN % 96.5 % (50.0-68.0); HEMOGLOBIN 12.9 g/dL (14.0-18.0); LYMPH % 1.7 % (22.0-35.0); MEAN CELL VOLUME 99.5 fl (80.0-105.0); MEAN CORPUSCULAR HEMOGLOBIN 30.6 pg (25.0-35.0); MEAN CORPUSCULAR HGB CONC 30.8 g/dl (31.0-37.0); MEAN PLATELET VOLUME 10.3 fl (7.0-11.0); MONO % 1.7 % (1.0-6.0); RED CELL DISTRIBUTION WIDTH 12.5 % (11.5-14.5)
[2018-09-25 06:12] LABS: BASO # 0.01 K/mm3 (0.0-2.0); GRAN # 12.73 (1.4-6.5); LYMPH # 0.2 (1.2-3.4); MONO # 0.2 (0.1-0.6)
[2018-09-25] MEDS ORDERED: Sodium Chloride 0.45% 1,000 ML IV SCH (06:15)
[2018-09-25 06:42] LABS: ARTERIAL BLOOD GAS HCO3 21.1 mmol/L (21-28); ARTERIAL BLOOD GAS HEMOGLOBIN 10.9 g/dL (11.7-17.4); ARTERIAL BLOOD GAS O2 CONTENT 14.6 ML/dl (15-23); ARTERIAL BLOOD GAS O2 SAT 97.3 % (95-98); ARTERIAL BLOOD GAS PCO2 29 mm/Hg (35-45); ARTERIAL BLOOD GAS PH 7.47 (7.35-7.45)
[2018-09-25 06:59] LABS: FREE T4 1.13 ng/dL (0.78-2.19)
--- NOTE | 2018-09-25 07:13 | PN ---
DATE: 09/25/2018 SUBJECTIVE: The patient is in bed in no acute distress, nontoxic, in ICU. OBJECTIVE: VITAL SIGNS: The patient remains intubated on the ventilator with temperature of 98, blood pressure is 140/80, respiratory rate on the vent, heart rate of 97. HEENT: Unremarkable. NECK: Supple. LUNGS: Have decreased breath sounds. HEART: Normal S1, S2. ABDOMEN: Soft, nontender, no organomegaly. No rebound. No guarding. No masses. LABORATORY EXAMINATION: Reveals a white count of 13,200, hemoglobin of 12, BUN of 46, creatinine is 1.0. Procalcitonin is 0.1. Urinalysis is noted, few yeast. Influenza is negative. Blood cultures are no gross and MRSA is not detected in the nasal cultures. Review of orders reveals the patient to be on doxycycline and meropenem. The patient is also on Solu-Medrol. Chest x-ray from yesterday, no active disease. ASSESSMENT AND PLAN: This is a 73-year-old male with ventilatory-dependent respiratory failure with hypoxic respiratory failure due to chronic obstructive lung disease. No evidence of pneumonia on chest x-ray with a history of inflammatory arthritis and gout and status post arthrocentesis unlikely to be septic arthritis, history of severe sepsis, bilateral lower lobe healthcare-associated with maculopapular rash, probably secondary to the Zosyn and gout, hypertension and chronic obstructive lung disease, on doxycycline day #5, and old cultures negative. MRSA is negative and also on meropenem day #3. We will be discontinuing the antibiotics within the next 24 hours. Malvin Bear MD
[2018-09-25] MEDS: Arformoterol 15 mcg/2 ml Inh Sol IH SCH (08:03)
[2018-09-25] MEDS: Budesonide 0.5 mg/2 ml Inhal Susp UD IH SCH ×2 (08:03→20:30)
[2018-09-25] MEDS: Acetylcysteine 20% Inhal Soln (4ml) PO SCH ×3 (10:03→17:01)
--- NOTE | 2018-09-25 13:13 | CP.CCUPN ---
<Brian Benz - Last Filed: 09/25/18 13:09> CCU Subjective - Physician Review Subjective (Free Text): Brian Benz, PGY1 ICU Progress Note for Dr. Bautista Patient was seen and examined at bedside this morning. ET tube, box, and NG tube are in place. Patient was sedated; on propofol at a rate of 20 and versed at a rate of 5 during time of interview. Patient was not not awake, alert, or following commands during time of interview. ROS not obtained due to ET tube. No fevers overnight. Vital signs stable. CCU Objective - Vital Signs / Intake & Output Vital Signs (Last 4 hours): Vital Signs Temp Pulse Resp BP Pulse Ox 09/25/18 12:00 99.9 F H 09/25/18 11:19 26 H 94 L 09/25/18 10:05 94 H 129/67 Intake and Output (Last 8hrs): Intake & Output 09/24/18 09/25/18 09/25/18 22:59 06:59 14:59 Intake Total 1250 1250 Output Total 350 900 Balance 900 350 Weight 66.678 kg Intake: IV 300 1250 IVF 300 1000 Right Upper arm 150 Tube Feeding 400 Other 550 Output: Urine 350 900 Urethral (Box) 350 900 Stool 0 Other: # Bowel Movements 0 - Physical Exam Head: Positive for: Atraumatic, Normocephalic Pupils: Positive for: PERRL Conjunctiva: Positive for: Normal Mouth: Positive for: Moist Mucous Membranes, Other (ET tube in place. ) Nose (External): Positive for: Other (NG tube in place) Respiratory/Chest: Positive for: Wheezes (wheezes b/l ). Negative for: Respiratory Distress, Rales, Rhonchi Cardiovascular: Positive for: Regular Rate and Rhythm, Normal S1, S2. Negative for: Murmurs Abdomen: Negative for: Tenderness, Distention, Peritoneal Signs Genitourinary Male: Positive for: Other (Box in place) Upper Extremity: Positive for: Normal Inspection. Negative for: Cyanosis, Edema Lower Extremity: Positive for: Normal Inspection. Negative for: Edema Skin: Positive for: Warm, Dry, Normal Color. Negative for: Rashes Psychiatric: Negative for: Alert (Sedated ), Oriented x 3 - Medications Active Medications: Active Medications Generic Name Dose Route Start Last Admin Trade Name Freq PRN Reason Stop Dose Admin Acetylcysteine 3 ml 09/25/18 06:05 09/25/18 10:03 Acetylcysteine 20% PO 3 ml TID BLANK Administration Albuterol/Ipratropium 3 ml 09/23/18 08:15 09/25/18 08:03 Duoneb 3 Mg/0.5 Mg (3 Ml) Ud IH 3 ml Q6H BLANK Administration Allopurinol 300 mg 09/20/18 11:00 09/20/18 12:23 Zyloprim PO 300 mg DAILY BLANK Administration Arformoterol Tartrate 15 mcg 09/20/18 20:00 09/25/18 08:03 Brovana IH 15 mcg [id number] BLANK Administration Budesonide 1 mg 09/20/18 20:00 09/25/18 08:03 Pulmicort Respules IH 1 mg [id number] BLANK Administration Ergocalciferol 1 cap 09/25/18 13:45 Drisdol 50,000 Intl Units Cap PO Q7D BLANK Famotidine 20 mg 09/24/18 18:00 09/25/18 10:06 Pepcid IVP 20 mg DAILY BLANK Administration Heparin Sodium (Porcine) 5,000 units 09/22/18 09:15 09/25/18 05:50 Heparin SC 5,000 units Q8 BLANK Administration Protocol Doxycycline Hyclate 100 mg/ 100 mls @ 100 mls/hr 09/21/18 10:00 09/25/18 10:03 Sodium Chloride IVPB 100 mls/hr Q12 BLANK Administration Protocol Propofol 1,000 mg in 100 mls @ 3.677 mls/hr 09/22/18 08:26 09/25/18 02:00 Diprivan IV 10 mcg/kg/min .Q24H PRN 3.677 mls/hr TITRATE PER MD ORDER Administration Protocol 10 MCG/KG/MIN Fentanyl Citrate 1,000 mcg in 100 mls @ 10 mls/hr 09/22/18 08:36 09/23/18 23:18 Fentanyl Citrate/Sodium Chloride 1 Mg/100 Ml IV 20 mcg/hr .Q10H PRN 2 mls/hr TITRATE PER MD ORDER Titration Protocol 100 MCG/HR Midazolam 100 mg/100ml in NS 100 mg in 100 mls @ 5 mls/hr 09/22/18 08:35 09/25/18 02:14 Midazolam 100 Mg/100ml In Ns IV 5 mg/hr .Q20H PRN 5 mls/hr Agitation Administration Protocol 5 MG/HR Meropenem/Sodium Chloride 500 mg in 50 mls @ 12.5 mls/hr 09/23/18 14:00 09/25/18 05:50 Merrem Iv 500 Mg/Ns 50 Ml IVPB 10/02/18 14:01 12.5 mls/hr Q8 BLANK Administration Protocol Ipratropium Grimes 0.5 mg 09/20/18 13:58 09/25/18 06:06 Atrovent IH 0.5 mg [id number] PRN Administration Shortness of Breath Levalbuterol HCl 0.63 mg 09/21/18 05:30 09/22/18 19:39 Xopenex IH 0.63 mg Q2H PRN Administration sob/wheezing Losartan Potassium 50 mg 09/20/18 10:45 09/20/18 12:21 Cozaar PO 50 mg DAILY BLANK Administration Losartan Potassium 50 mg 09/24/18 12:15 09/25/18 10:05 Cozaar NG 50 mg DAILY BLANK Administration Methylprednisolone 60 mg 09/24/18 10:40 09/25/18 05:51 Solu-Medrol IVP 60 mg Q8 BLANK Administration Montelukast Sodium 10 mg 09/20/18 22:15 09/24/18 22:58 Singulair PO Not Given HS BLANK - Patient Studies Lab Studies: Microbiology Studies 09/20/18 03:30 Blood Culture - Final Blood-Venous NO GROWTH AFTER 5 DAYS Gram Stain - Final TEST NOT PERFORMED 09/20/18 03:12 Blood Culture - Final Blood-Venous NO GROWTH AFTER 5 DAYS Gram Stain - Final TEST NOT PERFORMED Lab Studies 09/25/18 09/25/18 09/25/18 Range/Units 06:30 05:00 05:00 WBC (4.5-11.0) 10^3/uL RBC (3.5-6.1) 10^6/uL Hgb (14.0-18.0) g/dL Hct (42.0-52.0) % MCV (80.0-105.0) fl MCH (25.0-35.0) pg MCHC (31.0-37.0) g/dl RDW (11.5-14.5) % Plt Count (120.0-450.0) 10^3/uL MPV (7.0-11.0) fl Gran % (50.0-68.0) % Lymph % (Auto) (22.0-35.0) % Harvey % (Auto) (1.0-6.0) % Eos % (Auto) (1.5-5.0) % Baso % (Auto) (0.0-3.0) % Gran # (1.4-6.5) Lymph # (Auto) (1.2-3.4) Harvey # (Auto) (0.1-0.6) Eos # (Auto) (0.0-0.7) Baso # (Auto) (0.0-2.0) K/mm3 pCO2 29 L (35-45) mm/Hg pO2 74.0 L (80-100) mm/Hg HCO3 21.1 (21-28) mmol/L ABG pH 7.47 H (7.35-7.45) ABG Total CO2 22.0 (22-28) mmol.L ABG O2 Saturation 97.3 (95-98) % ABG O2 Content 14.6 L (15-23) ML/dl ABG Base Excess -1.8 (-2.0-3.0) mmol/L ABG Hemoglobin 10.9 L (11.7-17.4) g/dL ABG Carboxyhemoglobin 1.5 (0.5-1.5) % POC ABG HHb (Measured) 2.6 (0-5) % ABG Methemoglobin 1.1 (0.0-3.0) % ABG O2 Capacity 15.0 L (16-24) mL/dl Hgb O2 Saturation 94.9 L (95.0-98.0) % FiO2 50.0 % Sodium (132-148) mmol/L Potassium (3.6-5.0) mmol/L Chloride (98-107) mmol/L Carbon Dioxide (21-33) mmol/L Anion Gap (10-20) BUN (7-21) mg/dL Creatinine (0.8-1.5) mg/dl Est GFR ( Amer) Est GFR (Non-Af Amer) Random Glucose (70-110) mg/dL Calcium (8.4-10.5) mg/dL Total Bilirubin (0.2-1.3) mg/dL AST (17-59) U/L ALT (7-56) U/L Alkaline Phosphatase (38-126) U/L Troponin I 0.06 D ng/mL Total Protein (5.8-8.3) g/dL Albumin (3.0-4.8) g/dL Globulin gm/dL Albumin/Globulin Ratio (1.1-1.8) Free T4 1.13 (0.78-2.19) ng/dL TSH 3rd Generation < 0.02 L (0.46-4.68) mIU/mL 09/25/18 09/25/18 Range/Units 05:00 05:00 WBC 13.2 H D (4.5-11.0) 10^3/uL RBC 4.21 (3.5-6.1) 10^6/uL Hgb 12.9 L (14.0-18.0) g/dL Hct 41.9 L (42.0-52.0) % MCV 99.5 D (80.0-105.0) fl MCH 30.6 (25.0-35.0) pg MCHC 30.8 L (31.0-37.0) g/dl RDW 12.5 (11.5-14.5) % Plt Count 119 L (120.0-450.0) 10^3/uL MPV 10.3 (7.0-11.0) fl Gran % 96.5 H (50.0-68.0) % Lymph % (Auto) 1.7 L (22.0-35.0) % Harvey % (Auto) 1.7 (1.0-6.0) % Eos % (Auto) 0.0 L (1.5-5.0) % Baso % (Auto) 0.1 (0.0-3.0) % Gran # 12.73 H (1.4-6.5) Lymph # (Auto) 0.2 L (1.2-3.4) Harvey # (Auto) 0.2 (0.1-0.6) Eos # (Auto) 0.0 (0.0-0.7) Baso # (Auto) 0.01 (0.0-2.0) K/mm3 pCO2 (35-45) mm/Hg pO2 (80-100) mm/Hg HCO3 (21-28) mmol/L ABG pH (7.35-7.45) ABG Total CO2 (22-28) mmol.L ABG O2 Saturation (95-98) % ABG O2 Content (15-23) ML/dl ABG Base Excess (-2.0-3.0) mmol/L ABG Hemoglobin (11.7-17.4) g/dL ABG Carboxyhemoglobin (0.5-1.5) % POC ABG HHb (Measured) (0-5) % ABG Methemoglobin (0.0-3.0) % ABG O2 Capacity (16-24) mL/dl Hgb O2 Saturation (95.0-98.0) % FiO2 % Sodium 149 H (132-148) mmol/L Potassium 5.0 (3.6-5.0) mmol/L Chloride 118 H (98-107) mmol/L Carbon Dioxide 31 (21-33) mmol/L Anion Gap 5 L (10-20) BUN 46 H (7-21) mg/dL Creatinine 1.0 (0.8-1.5) mg/dl Est GFR ( Amer) > 60 Est GFR (Non-Af Amer) > 60 Random Glucose 171 H (70-110) mg/dL Calcium 8.1 L (8.4-10.5) mg/dL Total Bilirubin 0.3 (0.2-1.3) mg/dL AST 38 (17-59) U/L ALT 51 (7-56) U/L Alkaline Phosphatase 49 (38-126) U/L Troponin I ng/mL Total Protein 5.5 L (5.8-8.3) g/dL Albumin 3.0 (3.0-4.8) g/dL Globulin 2.5 gm/dL Albumin/Globulin Ratio 1.2 (1.1-1.8) Free T4 (0.78-2.19) ng/dL TSH 3rd Generation (0.46-4.68) mIU/mL Laboratory Results - last 24 hr 09/25/18 09/25/18 09/25/18 05:00 05:00 05:00 WBC 13.2 H D RBC 4.21 Hgb 12.9 L Hct 41.9 L MCV 99.5 D MCH 30.6 MCHC 30.8 L RDW 12.5 Plt Count 119 L MPV 10.3 Gran % 96.5 H Lymph % (Auto) 1.7 L Harvey % (Auto) 1.7 Eos % (Auto) 0.0 L Baso % (Auto) 0.1 Gran # 12.73 H Lymph # (Auto) 0.2 L Harvey # (Auto) 0.2 Eos # (Auto) 0.0 Baso # (Auto) 0.01 pCO2 pO2 HCO3 ABG pH ABG Total CO2 ABG O2 Saturation ABG O2 Content ABG Base Excess ABG Hemoglobin ABG Carboxyhemoglobin POC ABG HHb (Measured) ABG Methemoglobin ABG O2 Capacity Hgb O2 Saturation FiO2 Sodium 149 H Potassium 5.0 Chloride 118 H Carbon Dioxide 31 Anion Gap 5 L BUN 46 H Creatinine 1.0 Est GFR ( Amer) > 60 Est GFR (Non-Af Amer) > 60 Random Glucose 171 H Calcium 8.1 L Total Bilirubin 0.3 AST 38 ALT 51 Alkaline Phosphatase 49 Troponin I Total Protein 5.5 L Albumin 3.0 Globulin 2.5 Albumin/Globulin Ratio 1.2 Free T4 1.13 TSH 3rd Generation < 0.02 L 09/25/18 09/25/18 05:00 06:30 WBC RBC Hgb Hct MCV MCH MCHC RDW Plt Count MPV Gran % Lymph % (Auto) Harvey % (Auto) Eos % (Auto) Baso % (Auto) Gran # Lymph # (Auto) Harvey # (Auto) Eos # (Auto) Baso # (Auto) pCO2 29 L pO2 74.0 L HCO3 21.1 ABG pH 7.47 H ABG Total CO2 22.0 ABG O2 Saturation 97.3 ABG O2 Content 14.6 L ABG Base Excess -1.8 ABG Hemoglobin 10.9 L ABG Carboxyhemoglobin 1.5 POC ABG HHb (Measured) 2.6 ABG Methemoglobin 1.1 ABG O2 Capacity 15.0 L Hgb O2 Saturation 94.9 L FiO2 50.0 Sodium Potassium Chloride Carbon Dioxide Anion Gap BUN Creatinine Est GFR ( Amer) Est GFR (Non-Af Amer) Random Glucose Calcium Total Bilirubin AST ALT Alkaline Phosphatase Troponin I 0.06 D Total Protein Albumin Globulin Albumin/Globulin Ratio Free T4 TSH 3rd Generation Review of Systems - Review of Systems Systems not reviewed;Unavailable: Intubated Critical Care Progress Note - Ventilator Checklist Head of Bed 30 Degrees: Yes Daily Sedation Vacation: Yes Daily Assessment of Readiness to Wean: Yes Daily Spontaneous Breathing Trial: Yes PUD Prophalyxis: Yes DVT Prophylaxis: Yes Oral Care with Chlorhexidine Gluconate {CHG}: Yes - Vent Settings MODE:: PRVC TIDAL VOLUME:: 360 RESP RATE:: 20 FIO2:: 35 PEEP:: 5 - Extremities/Vascular Does the Patient have a Central Venous Catheter?: No Does the Patient need a Central Venous Catheter?: No Does the Patient have a Box Catheter?: Yes Does the Patient need a Box Catheter?: Yes Catheter Insertion Criteria: Need for accurate measurement of output in critically ill patient - Prophylaxis GI Prophylaxis GI: Pepsid - Prophylaxis DVT Prophylaxis DVT: Heparin SQ - Nutrition Nutrition: Nutrition Category Date Time Status NPO Diet [DIET] Diets 09/22/18 Lunch Ordered Assessment/Plan - Assessment and Plan (Free Text) Assessment: Patient is a 73 y/o M with PMHx of COPD and Asthma who was admitted to ICU for management of status asthmaticus complicated with allergic reaction likely due to zithromax administration. He is intubated/sedated due to hypercapnic respiratory failure with mixed type acidosis that is improving. Plan: Neuro: -sedated and intubated; on propofol and versed -maintain normothermia Cardio: -Normotensive -Hx HTN, hold coozar, diltiazem -Maintain MAP>65 Pulm: -Hypercapnic respiratory failure with improved respiratory acidosis in the setting of Status Asthmaticus & Anaphylactic Reaction -ET Tube, on mechanical ventilation. Maintain ventilation management: HoB > 35 degrees, oral care, suctioning, weaning trials, PUD ppx, DVT ppx -Monitor patient's peak and plateau pressures - CXR (09/25): no changes from previous imaging -wheezing on auscultation -c/w solu-medrol 60mg q8h, brovana, budesonide, duonebs -maintain O2 sat >90% -pulmonology following, Dr Coughlin Renal: -Pre-renal AMPARO; BUN/Cr 46/1.0 -monitor ins/outs -maintain euvolemia -avoid nephrotoxic drugs -Nephro (Dr Vegas) is following ID: -leukocytosis improving -continue doxycycline (Day 5), meropenem (Day 3) -MRSA negative -f/u sputum, urine cx -ID is following GI: -tube-feeds: Jevity diet. Hold prior to weaning process. -GI ppx MSK: -Hx gouty arthritis -held colchicine, allopurinol Endo: -TSH significantly low -f/u free T4 level -maintain euglycemia Heme: -H/H stable -DVT ppx Prophylaxis: -GI ppx: Pepcid -DVT ppx: heparin sc Dispo: Plan is for weaning process today. Will monitor in ICU. Case was discussed and reviewed with Attending Physician, Dr. Bautista <Satish Bautista - Last Filed: 09/25/18 14:23> CCU Objective - Vital Signs / Intake & Output Vital Signs (Last 4 hours): Vital Signs Temp Resp Pulse Ox 09/25/18 12:00 99.9 F H 09/25/18 11:19 26 H 94 L Intake and Output (Last 8hrs): Intake & Output 09/24/18 09/25/18 09/25/18 22:59 06:59 14:59 Intake Total 1250 1250 Output Total 350 900 Balance 900 350 Weight 66.678 kg Intake: IV 300 1250 IVF 300 1000 Right Upper arm 150 Tube Feeding 400 Other 550 Output: Urine 350 900 Urethral (Box) 350 900 Stool 0 Other: # Bowel Movements 0 - Medications Active Medications: Active Medications Generic Name Dose Route Start Last Admin Trade Name Freq PRN Reason Stop Dose Admin Acetylcysteine 3 ml 09/25/18 06:05 09/25/18 13:50 Acetylcysteine 20% PO 3 ml TID BLANK Administration Albuterol/Ipratropium 3 ml 09/23/18 08:15 09/25/18 08:03 Duoneb 3 Mg/0.5 Mg (3 Ml) Ud IH 3 ml Q6H BLANK Administration Allopurinol 300 mg 09/20/18 11:00 09/20/18 12:23 Zyloprim PO 300 mg DAILY BLANK Administration Arformoterol Tartrate 15 mcg 09/20/18 20:00 09/25/18 08:03 Brovana IH 15 mcg [id number] BLANK Administration Budesonide 1 mg 09/20/18 20:00 09/25/18 08:03 Pulmicort Respules IH 1 mg [id number] BLANK Administration Ergocalciferol 1 cap 09/25/18 13:45 09/25/18 13:50 Drisdol 50,000 Intl Units Cap PO 1 cap Q7D BLANK Administration Famotidine 20 mg 09/24/18 18:00 09/25/18 10:06 Pepcid IVP 20 mg DAILY BLANK Administration Heparin Sodium (Porcine) 5,000 units 09/22/18 09:15 09/25/18 13:48 Heparin SC 5,000 units Q8 BLANK Administration Protocol Doxycycline Hyclate 100 mg/ 100 mls @ 100 mls/hr 09/21/18 10:00 09/25/18 10:03 Sodium Chloride IVPB 100 mls/hr Q12 BLANK Administration Protocol Propofol 1,000 mg in 100 mls @ 3.677 mls/hr 09/22/18 08:26 09/25/18 02:00 Diprivan IV 10 mcg/kg/min .Q24H PRN 3.677 mls/hr TITRATE PER MD ORDER Administration Protocol 10 MCG/KG/MIN Fentanyl Citrate 1,000 mcg in 100 mls @ 10 mls/hr 09/22/18 08:36 09/23/18 23:18 Fentanyl Citrate/Sodium Chloride 1 Mg/100 Ml IV 20 mcg/hr .Q10H PRN 2 mls/hr TITRATE PER MD ORDER Titration Protocol 100 MCG/HR Midazolam 100 mg/100ml in NS 100 mg in 100 mls @ 5 mls/hr 09/22/18 08:35 09/25/18 02:14 Midazolam 100 Mg/100ml In Ns IV 5 mg/hr .Q20H PRN 5 mls/hr Agitation Administration Protocol 5 MG/HR Meropenem/Sodium Chloride 500 mg in 50 mls @ 12.5 mls/hr 09/23/18 14:00 09/25/18 13:47 Merrem Iv 500 Mg/Ns 50 Ml IVPB 10/02/18 14:01 12.5 mls/hr Q8 BLANK Administration Protocol Ipratropium Grimes 0.5 mg 09/20/18 13:58 09/25/18 06:06 Atrovent IH 0.5 mg [id number] PRN Administration Shortness of Breath Levalbuterol HCl 0.63 mg 09/21/18 05:30 09/22/18 19:39 Xopenex IH 0.63 mg Q2H PRN Administration sob/wheezing Losartan Potassium 50 mg 09/20/18 10:45 09/20/18 12:21 Cozaar PO 50 mg DAILY BLANK Administration Losartan Potassium 50 mg 09/24/18 12:15 09/25/18 10:05 Cozaar NG 50 mg DAILY BLANK Administration Methylprednisolone 60 mg 09/24/18 10:40 09/25/18 13:50 Solu-Medrol IVP 60 mg Q8 BLANK Administration Montelukast Sodium 10 mg 09/20/18 22:15 09/24/18 22:58 Singulair PO Not Given HS BLANK - Patient Studies Lab Studies: Microbiology Studies 09/20/18 03:30 Blood Culture - Final Blood-Venous NO GROWTH AFTER 5 DAYS Gram Stain - Final TEST NOT PERFORMED 09/20/18 03:12 Blood Culture - Final Blood-Venous NO GROWTH AFTER 5 DAYS Gram Stain - Final TEST NOT PERFORMED Lab Studies 09/25/18 09/25/18 09/25/18 Range/Units 06:30 05:00 05:00 WBC (4.5-11.0) 10^3/uL RBC (3.5-6.1) 10^6/uL Hgb (14.0-18.0) g/dL Hct (42.0-52.0) % MCV (80.0-105.0) fl MCH (25.0-35.0) pg MCHC (31.0-37.0) g/dl RDW (11.5-14.5) % Plt Count (120.0-450.0) 10^3/uL MPV (7.0-11.0) fl Gran % (50.0-68.0) % Lymph % (Auto) (22.0-35.0) % Harvey % (Auto) (1.0-6.0) % Eos % (Auto) (1.5-5.0) % Baso % (Auto) (0.0-3.0) % Gran # (1.4-6.5) Lymph # (Auto) (1.2-3.4) Harvey # (Auto) (0.1-0.6) Eos # (Auto) (0.0-0.7) Baso # (Auto) (0.0-2.0) K/mm3 pCO2 29 L (35-45) mm/Hg pO2 74.0 L (80-100) mm/Hg HCO3 21.1 (21-28) mmol/L ABG pH 7.47 H (7.35-7.45) ABG Total CO2 22.0 (22-28) mmol.L ABG O2 Saturation 97.3 (95-98) % ABG O2 Content 14.6 L (15-23) ML/dl ABG Base Excess -1.8 (-2.0-3.0) mmol/L ABG Hemoglobin 10.9 L (11.7-17.4) g/dL ABG Carboxyhemoglobin 1.5 (0.5-1.5) % POC ABG HHb (Measured) 2.6 (0-5) % ABG Methemoglobin 1.1 (0.0-3.0) % ABG O2 Capacity 15.0 L (16-24) mL/dl Hgb O2 Saturation 94.9 L (95.0-98.0) % FiO2 50.0 % Sodium (132-148) mmol/L Potassium (3.6-5.0) mmol/L Chloride (98-107) mmol/L Carbon Dioxide (21-33) mmol/L Anion Gap (10-20) BUN (7-21) mg/dL Creatinine (0.8-1.5) mg/dl Est GFR ( Amer) Est GFR (Non-Af Amer) Random Glucose (70-110) mg/dL Calcium (8.4-10.5) mg/dL Total Bilirubin (0.2-1.3) mg/dL AST (17-59) U/L ALT (7-56) U/L Alkaline Phosphatase (38-126) U/L Troponin I 0.06 D ng/mL Total Protein (5.8-8.3) g/dL Albumin (3.0-4.8) g/dL Globulin gm/dL Albumin/Globulin Ratio (1.1-1.8) Free T4 1.13 (0.78-2.19) ng/dL TSH 3rd Generation < 0.02 L (0.46-4.68) mIU/mL 09/25/18 09/25/18 Range/Units 05:00 05:00 WBC 13.2 H D (4.5-11.0) 10^3/uL RBC 4.21 (3.5-6.1) 10^6/uL Hgb 12.9 L (14.0-18.0) g/dL Hct 41.9 L (42.0-52.0) % MCV 99.5 D (80.0-105.0) fl MCH 30.6 (25.0-35.0) pg MCHC 30.8 L (31.0-37.0) g/dl RDW 12.5 (11.5-14.5) % Plt Count 119 L (120.0-450.0) 10^3/uL MPV 10.3 (7.0-11.0) fl Gran % 96.5 H (50.0-68.0) % Lymph % (Auto) 1.7 L (22.0-35.0) % Harvey % (Auto) 1.7 (1.0-6.0) % Eos % (Auto) 0.0 L (1.5-5.0) % Baso % (Auto) 0.1 (0.0-3.0) % Gran # 12.73 H (1.4-6.5) Lymph # (Auto) 0.2 L (1.2-3.4) Harvey # (Auto) 0.2 (0.1-0.6) Eos # (Auto) 0.0 (0.0-0.7) Baso # (Auto) 0.01 (0.0-2.0) K/mm3 pCO2 (35-45) mm/Hg pO2 (80-100) mm/Hg HCO3 (21-28) mmol/L ABG pH (7.35-7.45) ABG Total CO2 (22-28) mmol.L ABG O2 Saturation (95-98) % ABG O2 Content (15-23) ML/dl ABG Base Excess (-2.0-3.0) mmol/L ABG Hemoglobin (11.7-17.4) g/dL ABG Carboxyhemoglobin (0.5-1.5) % POC ABG HHb (Measured) (0-5) % ABG Methemoglobin (0.0-3.0) % ABG O2 Capacity (16-24) mL/dl Hgb O2 Saturation (95.0-98.0) % FiO2 % Sodium 149 H (132-148) mmol/L Potassium 5.0 (3.6-5.0) mmol/L Chloride 118 H (98-107) mmol/L Carbon Dioxide 31 (21-33) mmol/L Anion Gap 5 L (10-20) BUN 46 H (7-21) mg/dL Creatinine 1.0 (0.8-1.5) mg/dl Est GFR ( Amer) > 60 Est GFR (Non-Af Amer) > 60 Random Glucose 171 H (70-110) mg/dL Calcium 8.1 L (8.4-10.5) mg/dL Total Bilirubin 0.3 (0.2-1.3) mg/dL AST 38 (17-59) U/L ALT 51 (7-56) U/L Alkaline Phosphatase 49 (38-126) U/L Troponin I ng/mL Total Protein 5.5 L (5.8-8.3) g/dL Albumin 3.0 (3.0-4.8) g/dL Globulin 2.5 gm/dL Albumin/Globulin Ratio 1.2 (1.1-1.8) Free T4 (0.78-2.19) ng/dL TSH 3rd Generation (0.46-4.68) mIU/mL Laboratory Results - last 24 hr 09/25/18 09/25/18 09/25/18 05:00 05:00 05:00 WBC 13.2 H D RBC 4.21 Hgb 12.9 L Hct 41.9 L MCV 99.5 D MCH 30.6 MCHC 30.8 L RDW 12.5 Plt Count 119 L MPV 10.3 Gran % 96.5 H Lymph % (Auto) 1.7 L Harvey % (Auto) 1.7 Eos % (Auto) 0.0 L Baso % (Auto) 0.1 Gran # 12.73 H Lymph # (Auto) 0.2 L Harvey # (Auto) 0.2 Eos # (Auto) 0.0 Baso # (Auto) 0.01 pCO2 pO2 HCO3 ABG pH ABG Total CO2 ABG O2 Saturation ABG O2 Content ABG Base Excess ABG Hemoglobin ABG Carboxyhemoglobin POC ABG HHb (Measured) ABG Methemoglobin ABG O2 Capacity Hgb O2 Saturation FiO2 Sodium 149 H Potassium 5.0 Chloride 118 H Carbon Dioxide 31 Anion Gap 5 L BUN 46 H Creatinine 1.0 Est GFR ( Amer) > 60 Est GFR (Non-Af Amer) > 60 Random Glucose 171 H Calcium 8.1 L Total Bilirubin 0.3 AST 38 ALT 51 Alkaline Phosphatase 49 Troponin I Total Protein 5.5 L Albumin 3.0 Globulin 2.5 Albumin/Globulin Ratio 1.2 Free T4 1.13 TSH 3rd Generation < 0.02 L 09/25/18 09/25/18 05:00 06:30 WBC RBC Hgb Hct MCV MCH MCHC RDW Plt Count MPV Gran % Lymph % (Auto) Harvey % (Auto) Eos % (Auto) Baso % (Auto) Gran # Lymph # (Auto) Harvey # (Auto) Eos # (Auto) Baso # (Auto) pCO2 29 L pO2 74.0 L HCO3 21.1 ABG pH 7.47 H ABG Total CO2 22.0 ABG O2 Saturation 97.3 ABG O2 Content 14.6 L ABG Base Excess -1.8 ABG Hemoglobin 10.9 L ABG Carboxyhemoglobin 1.5 POC ABG HHb (Measured) 2.6 ABG Methemoglobin 1.1 ABG O2 Capacity 15.0 L Hgb O2 Saturation 94.9 L FiO2 50.0 Sodium Potassium Chloride Carbon Dioxide Anion Gap BUN Creatinine Est GFR ( Amer) Est GFR (Non-Af Amer) Random Glucose Calcium Total Bilirubin AST ALT Alkaline Phosphatase Troponin I 0.06 D Total Protein Albumin Globulin Albumin/Globulin Ratio Free T4 TSH 3rd Generation Critical Care Progress Note - Nutrition Nutrition: Nutrition Category Date Time Status NPO Diet [DIET] Diets 09/22/18 Lunch Ordered Addendum Addendum: 09/25/18 14:23 MICU ATTENDING ADDENDUM: Patient seen and examined. Case discussed in round with housestaff. Agree with note above with the following additions/exception: 73 y/o M with PMHx of COPD and Asthma intubated for resp failure. Unclear if this was related to his azithro (reaction?). At this time, although he is weangin his PeakPressure is 24 and PlatPressure is 17 which does not suggest increased airway resistance. Thus he is appropriately bronchodilated. He DOES have a cuff leak which rules out significant laryngeal edema. Will CPAP trail today with plan to extubate. Given his tachycardia , will hold Brovana to limit B2 agonsits. cont q6hour duonebs, [id number] as per pulm abx as per ID Rest of care above Satish Bautista MD Pulmonary Critical Care and Sleep Medicine Critical Care Time: 41 mins
[2018-09-25] MEDS: Ergocalciferol 50,000 Intl Units Cap PO SCH (13:50)
--- NOTE | 2018-09-25 14:14 | RAD ---
Date of service: 09/25/2018 HISTORY: intubated; status asthmaticus COMPARISON: Comparison chest dated 09/24/2018 FINDINGS: In situ ETT, the tip of which lies approximately 5.4 cm above asher. Feeding tube is present, the tip of which lies below the medial aspect right hemidiaphragm. LUNGS: Persistent elevation right hemidiaphragm with suspected minor bibasilar atelectasis. Atelectasis PLEURA: No significant pleural effusion identified, no pneumothorax apparent. CARDIOVASCULAR: No aortic atherosclerotic calcification present. Normal cardiac size. No pulmonary vascular congestion. OSSEOUS STRUCTURES: No significant abnormalities. VISUALIZED UPPER ABDOMEN: Normal. OTHER FINDINGS: None. IMPRESSION: Support lines and tubes as above.. Persistent elevation right hemidiaphragm with mild bibasilar atelectasis.
--- NOTE | 2018-09-25 15:37 | CP.PCM.PN ---
Subjective - Date & Time of Evaluation Date of Evaluation: 09/25/18 Time of Evaluation: 15:36 - Subjective Subjective: Nephrology Consultation Note: Assessment: critical Acute Kidney Injury (N17.9) likely hemodynamic and pre-renal state due to diuresis, ATN: improved with IVF hyperkalemia, hypernatremia combined respi and metabolic acidosis acute on chronic hypercapnic respi failure with COPD/asthma exacerbation Vit D def Plan No acute need for renal replacement therapy at this time. Maintain hemodynamics stable. Avoid hypotension. Patient not on ACEI/ARB due to recent AMPARO. resume now Monitor Input/Output, daily weights and renal function with basic metabolic panel free water via NG tube, 250 mL q 4 hr, if pt unable to tolerate water then add D5W drip @ 75 ml/hr will add vit D once on diet Dose meds/antibiotics for improved GFR. Glycemic control Further work up/management as per primary team Thanks for allowing me to participate in care of your patient. Will follow patient with you. Please call if any Qs. had d/w team Dr Ming [place] Office: [phone] Chief Complaint; unable to obtain Reason for consult: Acute Kidney Injury HPI: Pt is a 73 M with hx of copd/asthma presented with complaints of SOB and intubated for acute respi failure. renal consult for AMPARO. Denies OTC/herbal meds or NSAIDs No recent iodinated contrast exposure. Noted obvious episodes of low BP (80s). 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 intubated/sedated Vitals reviewed and noted as below Head; Atraumatic, normocephalic ENT: orally intubated EYES: Pupils are equal, round and reactive to light accommodation. Eye muscles and extraocular movement intact. Sclera is anicteric. Neck; supple no lymphadenopathy, no thyromegaly or bruit Lungs: Normal respiratory rate/effort. Breath sounds bilateral b/l improved Heart: Normal rate. s1s2 normal. No rub or gallop. Extremities: no edema. No varicose veins Neurological: Patient is sedated Skin: Warm and dry. Normal turgor. No rash. Palpitation: Normal elasticity for age Abdomen: Abdomen is soft. Bowel sounds +. There is no abdominal tenderness, no guarding/rigidity no organomegaly Psych: deferred MSK: no joint tenderness or swelling. Digits and nails normal, no deformity : kidney or bladder not palpable. has box Labs/imaging reviewed. Past medical history, past surgical history, family history, social history, allergy reviewed and noted as below Family hx: no hx of CKD. Rest non-contributory Objective - Vital Signs/Intake and Output Vital Signs (last 24 hours): Temp Pulse Resp BP Pulse Ox 99.9 F H 94 H 26 H 129/67 94 L 09/25/18 12:00 09/25/18 10:05 09/25/18 11:19 09/25/18 10:05 09/25/18 11:19 Intake and Output: 09/25/18 09/25/18 06:59 18:59 Intake Total 1250 Output Total 900 Balance 350 - Medications Medications: Current Medications Acetylcysteine (Acetylcysteine 20%) 3 ml PO TID [facility] Last Admin: 09/25/18 13:50 Dose: 3 ml Albuterol/Ipratropium (Duoneb 3 Mg/0.5 Mg (3 Ml) Ud) 3 ml IH Q6H [facility] Last Admin: 09/25/18 14:25 Dose: 3 ml Allopurinol (Zyloprim) 300 mg PO DAILY [facility] Last Admin: 09/20/18 12:23 Dose: 300 mg Arformoterol Tartrate (Brovana) 15 mcg IH [id number] [facility] Last Admin: 09/25/18 08:03 Dose: 15 mcg Budesonide (Pulmicort Respules) 1 mg IH [id number] [facility] Last Admin: 09/25/18 08:03 Dose: 1 mg Ergocalciferol (Drisdol 50,000 Intl Units Cap) 1 cap PO Q7D [facility] Last Admin: 09/25/18 13:50 Dose: 1 cap Famotidine (Pepcid) 20 mg IVP DAILY [facility] Last Admin: 09/25/18 10:06 Dose: 20 mg Heparin Sodium (Porcine) (Heparin) 5,000 units SC Q8 BLANK; Protocol Last Admin: 09/25/18 13:48 Dose: 5,000 units Doxycycline Hyclate 100 mg/ (Sodium Chloride) 100 mls @ 100 mls/hr IVPB Q12 BLANK; Protocol Last Admin: 09/25/18 10:03 Dose: 100 mls/hr Propofol (Diprivan) 1,000 mg in 100 mls @ 3.677 mls/hr IV .Q24H PRN; Protocol PRN Reason: TITRATE PER MD ORDER Last Admin: 09/25/18 02:00 Dose: 10 mcg/kg/min, 3.677 mls/hr Fentanyl Citrate (Fentanyl Citrate/Sodium Chloride 1 Mg/100 Ml) 1,000 mcg in 100 mls @ 10 mls/hr IV .Q10H PRN; Protocol PRN Reason: TITRATE PER MD ORDER Last Titration: 09/23/18 23:18 Dose: 20 mcg/hr, 2 mls/hr Midazolam 100 mg/100ml in NS (Midazolam 100 Mg/100ml In Ns) 100 mg in 100 mls @ 5 mls/hr IV .Q20H PRN; Protocol PRN Reason: Agitation Last Admin: 09/25/18 02:14 Dose: 5 mg/hr, 5 mls/hr Meropenem/Sodium Chloride (Merrem Iv 500 Mg/Ns 50 Ml) 500 mg in 50 mls @ 12.5 mls/hr IVPB Q8 BLANK; Protocol Stop: 10/02/18 14:01 Last Admin: 09/25/18 13:47 Dose: 12.5 mls/hr Ipratropium [place] (Atrovent) 0.5 mg IH [id number] PRN PRN Reason: Shortness of Breath Last Admin: 09/25/18 06:06 Dose: 0.5 mg Levalbuterol HCl (Xopenex) 0.63 mg IH Q2H PRN PRN Reason: sob/wheezing Last Admin: 09/22/18 19:39 Dose: 0.63 mg Losartan Potassium (Cozaar) 50 mg PO DAILY BLANK Last Admin: 09/20/18 12:21 Dose: 50 mg Losartan Potassium (Cozaar) 50 mg NG DAILY BLANK Last Admin: 09/25/18 10:05 Dose: 50 mg Methylprednisolone (Solu-Medrol) 60 mg IVP Q8 BLANK Last Admin: 09/25/18 13:50 Dose: 60 mg Montelukast Sodium (Singulair) 10 mg PO HS BLANK Last Admin: 09/24/18 22:58 Dose: Not Given - Labs Labs: 09/25/18 05:00 09/25/18 05:00
[2018-09-25] MEDS ORDERED: Dexmedetomidine 400mcg/100mL 400 MCG/100 ML BOTTLE IV PRN (17:03)
[2018-09-25] MEDS ORDERED: Labetalol 5 mg/ml Inj 20ML IV ONE (23:49)
[2018-09-26] MEDS ORDERED: Propofol 10 mg/ml 1,000 MG/100 ML VIAL IV PRN (00:04)
[2018-09-26] MEDS ORDERED: Labetalol 100 MG in Sodium Chloride 0.9% 80 ML IV PRN (01:05)
--- NOTE | 2018-09-26 01:30 | PN ---
DATE: 09/25/2018 PULMONARY PROGRESS NOTE REFERRING PHYSICIAN: Mary Roper MD SUBJECTIVE: Patient is intubated and sedated. Failed a trial of extubation this morning. At present, his sedation has been decreased and arousable. Does follows simple commands. Not much ET tube secretion. No hemoptysis. No hematemesis. No hematuria. No diarrhea reported. OBJECTIVE: GENERAL: On ventilator. VITAL SIGNS: Temperature is 98, heart rate is 99, respiratory rate is 12, blood pressure 165/93, pulse ox 95% on ventilator. HEENT: Moist mucous membrane. ET tube, no secretion. NECK: Supple. No JVD. LUNGS: Have a fair airflow with prolonged expiratory phase. HEART: S1 and S2. ABDOMEN: Soft, nontender, nondistended. EXTREMITIES: There is no edema. NEUROLOGICAL: Arousable, but sedated. MEDICATIONS: He is on Mucomyst inhaled 3 times a day, Atrovent inhaled every 6 hours, Brovana inhaled twice a day, Cozaar 50 mg nasogastric tube daily, doxycycline 100 mg twice a day, DuoNeb every 6 hours [id number], IV fentanyl is on hold, heparin 5000 units subcutaneously every 8 hours, meropenem 500 every 8 hours, Pepcid 20 mg daily, Precedex 400 mg with 100 mL on board, Pulmicort inhaled twice a day, Singulair 10 mg at bedtime, Solu-Medrol 60 mg every 8 hours, Xopenex inhaled every 2 hours p.r.n., allopurinol 300 mg daily. LABORATORY DATA: Shows hemoglobin 12.9, hematocrit 41.9, WBC 13.2, platelet is 119. ABG shows pH 7.47, pCO2 of 29, O2 is 74. This is on ventilator with 35% oxygen. Sodium 149, potassium 5.0, chloride 118, bicarbonate 31, BUN 46, creatinine 1.0, glucose 171, calcium 8.1. AST 38, ALT is 51, alk phos is 49. Troponin 0.06. Albumin is 3.0. TSH is less than 0.02. T4 free 1.13. Microbiology: Blood culture, urine culture, there is no growth. Chest x-ray was unremarkable. IMPRESSION AND PLAN: Chronic obstructive lung disease with respiratory failure, on ventilator; severe gout with multiple joint involvement; may have a component of sleep apnea syndrome; hypertension; has multiple drug allergies. Case discussed with cloth designer, Dr. Bautista, in detail. Is with heart extubation. Gets very agitated and anxious, off sedative. May need to extubate while still mildly on sedatives, but need very close cardiopulmonary monitoring because of risk of respiratory failure and reintubation. Continue steroids. Continue antibiotics. Keep head at 45 degrees. Gastric prophylaxis. Deep venous thrombosis prophylaxis. Critical care time more than 35 minutes. Thank you and we will follow with you. Morgan Coughlin MD
[2018-09-26] MEDS: Albuterol-Ipratrop 3 mg / 0.5 (3 ml) UD IH SCH ×4 (01:52→19:36)
[2018-09-26] MEDS ORDERED: LABETALOL IV PRN (03:05)
[2018-09-26] MEDS ORDERED: SODIUM CHLORIDE 0.9% IV PRN (03:05)
[2018-09-26] MEDS: MEROPENEM 500 MG in NS 500 MG/50 ML BAG IVPB SCH ×2 (05:09→13:19)
[2018-09-26 05:46] LABS: ARTERIAL BLOOD GAS HCO3 28.5 mmol/L (21-28); ARTERIAL BLOOD GAS HEMOGLOBIN 13.7 g/dL (11.7-17.4); ARTERIAL BLOOD GAS O2 CAPACITY 18.8 mL/dl (16-24); ARTERIAL BLOOD GAS O2 CONTENT 18.8 ML/dl (15-23); ARTERIAL BLOOD GAS O2 SAT 99.9 % (95-98); ARTERIAL BLOOD GAS PCO2 44 mm/Hg (35-45); ARTERIAL BLOOD GAS PH 7.42 (7.35-7.45); ARTERIAL BLOOD GAS TCO2 29.9 mmol.L (22-28)
[2018-09-26 05:50] LABS: GRAN # 16.5 (1.4-6.5); GRAN % 95.8 % (50.0-68.0); HEMOGLOBIN 13.6 g/dL (14.0-18.0); LYMPH # 0.6 (1.2-3.4); LYMPH % 3.4 % (22.0-35.0); MEAN CELL VOLUME 94.7 fl (80.0-105.0); MEAN CORPUSCULAR HEMOGLOBIN 30.2 pg (25.0-35.0); MEAN CORPUSCULAR HGB CONC 31.9 g/dl (31.0-37.0); MEAN PLATELET VOLUME 10.7 fl (7.0-11.0); MONO # 0.1 (0.1-0.6); MONO % 0.8 % (1.0-6.0); RBC 4.5 10^6/uL (3.5-6.1); RED CELL DISTRIBUTION WIDTH 12.3 % (11.5-14.5); WHITE BLOOD COUNT 17.2 10^3/uL (4.5-11.0)
[2018-09-26 06:04] LABS: ALB/GLOB RATIO 1.1 (1.1-1.8); ALBUMIN 2.9 g/dL (3.0-4.8); ALT/SGPT 63 U/L (7-56); AST/SGOT 39 U/L (17-59); BLOOD UREA NITROGEN 50 mg/dL (7-21); GFR NON-AFRICAN AMERICAN 54
[2018-09-26] MEDS: Budesonide 0.5 mg/2 ml Inhal Susp UD IH SCH ×2 (08:06→19:37)
[2018-09-26] MEDS: Acetylcysteine 20% Inhal Soln (4ml) PO SCH ×3 (09:23→17:48)
--- NOTE | 2018-09-26 09:45 | CP.PCM.PN ---
Subjective - Date & Time of Evaluation Date of Evaluation: 09/26/18 Time of Evaluation: 09:44 - Subjective Subjective: Nephrology Consultation Note: Assessment: critical Acute Kidney Injury (N17.9) likely hemodynamic and pre-renal state due to diuresis, ATN: improved with IVF hyperkalemia, hypernatremia combined respi and metabolic acidosis acute on chronic hypercapnic respi failure with COPD/asthma exacerbation Vit D def Plan No acute need for renal replacement therapy at this time. Maintain hemodynamics stable. Avoid hypotension. Patient not on ACEI/ARB due to recent AMPARO. resumed. added norvasc 5 mg/day. pt on labetalol drip Monitor Input/Output, daily weights and renal function with basic metabolic panel add vit D once on diet Dose meds/antibiotics for improved GFR. Glycemic control Further work up/management as per primary team Thanks for allowing me to participate in care of your patient. Will follow patient with you. Please call if any Qs. had d/w team Dr Ming [place] Office: [phone] Chief Complaint; unable to obtain Reason for consult: Acute Kidney Injury HPI: Pt is a 73 M with hx of copd/asthma presented with complaints of SOB and intubated for acute respi failure. renal consult for AMPARO. Denies OTC/herbal meds or NSAIDs No recent iodinated contrast exposure. Noted obvious episodes of low BP (80s). pt unable to provide any hx pt with AKIs in past with cr up to 1.3 which improved intermittently to 0.8-0.9 cr 1.3 at presentation ROS: unable to obtain. noted overnight events. Physical Examination: General Appearance: Comfortable, in no acute respiratory distress, better appearing. intubated/sedated Vitals reviewed and noted as below Head; Atraumatic, normocephalic ENT: orally intubated EYES: Pupils are equal, round and reactive to light accommodation. Eye muscles and extraocular movement intact. Sclera is anicteric. Neck; supple no lymphadenopathy, no thyromegaly or bruit Lungs: Normal respiratory rate/effort. Breath sounds bilateral b/l improved Heart: Normal rate. s1s2 normal. No rub or gallop. Extremities: no edema. No varicose veins Neurological: Patient is awake Skin: Warm and dry. Normal turgor. No rash. Palpitation: Normal elasticity for age Abdomen: Abdomen is soft. Bowel sounds +. There is no abdominal tenderness, no guarding/rigidity no organomegaly Psych: deferred MSK: no joint tenderness or swelling. Digits and nails normal, no deformity : kidney or bladder not palpable. has box Labs/imaging reviewed. Past medical history, past surgical history, family history, social history, allergy reviewed and noted as below Family hx: no hx of CKD. Rest non-contributory Objective - Vital Signs/Intake and Output Vital Signs (last 24 hours): Temp Pulse Resp BP Pulse Ox 98.6 F 77 26 H 158/82 H 100 09/26/18 08:00 09/26/18 09:24 09/25/18 11:19 09/26/18 09:24 09/26/18 08:20 Intake and Output: 09/26/18 09/26/18 06:59 18:59 Intake Total 1271 Output Total 1215 Balance 56 - Medications Medications: Current Medications Acetylcysteine (Acetylcysteine 20%) 3 ml PO TID [facility] Last Admin: 09/26/18 09:23 Dose: 3 ml Albuterol/Ipratropium (Duoneb 3 Mg/0.5 Mg (3 Ml) Ud) 3 ml IH Q6H [facility] Last Admin: 09/26/18 08:06 Dose: 3 ml Allopurinol (Zyloprim) 300 mg PO DAILY [facility] Last Admin: 18 12:23 Dose: 300 mg Amlodipine Besylate (Norvasc) 5 mg NG DAILY [facility] Last Admin: 09/26/18 09:24 Dose: 5 mg Arformoterol Tartrate (Brovana) 15 mcg IH [id number] [facility] Last Admin: 09/25/18 08:03 Dose: 15 mcg Budesonide (Pulmicort Respules) 1 mg IH [id number] [facility] Last Admin: 09/26/18 08:06 Dose: 1 mg Ergocalciferol (Drisdol 50,000 Intl Units Cap) 1 cap PO Q7D [facility] Last Admin: 09/25/18 13:50 Dose: 1 cap Famotidine (Pepcid) 20 mg IVP DAILY [facility] Last Admin: 09/26/18 09:23 Dose: 20 mg Heparin Sodium (Porcine) (Heparin) 5,000 units SC Q8 [facility]; Protocol Last Admin: 09/26/18 05:09 Dose: 5,000 units Doxycycline Hyclate 100 mg/ (Sodium Chloride) 100 mls @ 100 mls/hr IVPB Q12 BLANK; Protocol Last Admin: 09/26/18 09:22 Dose: 100 mls/hr Meropenem/Sodium Chloride (Merrem Iv 500 Mg/Ns 50 Ml) 500 mg in 50 mls @ 12.5 mls/hr IVPB Q8 BLANK; Protocol Stop: 10/02/18 14:01 Last Admin: 09/26/18 05:09 Dose: 12.5 mls/hr Propofol (Diprivan) 1,000 mg in 100 mls @ 2 mls/hr IV .Q24H PRN; Protocol PRN Reason: TITRATE PER MD ORDER Last Titration: 09/26/18 02:00 Dose: 20 mcg/kg/min, 8.001 mls/hr Labetalol HCl 100 mg/ Sodium (Chloride) 100 mls @ 60 mls/hr IV .Q1H40M PRN; Pro tocol PRN Reason: TITRATE PER MD ORDER Last Admin: 09/26/18 01:45 Dose: 1 mg/min, 60 mls/hr Labetalol HCl 600 mg/ Sodium (Chloride) 600 mls @ 60 mls/hr IV .Q10H PRN; Protocol PRN Reason: TITRATE PER MD ORDER Ipratropium [place] (Atrovent) 0.5 mg IH [id number] PRN PRN Reason: Shortness of Breath Last Admin: 09/25/18 06:06 Dose: 0.5 mg Levalbuterol HCl (Xopenex) 0.63 mg IH Q2H PRN PRN Reason: sob/wheezing Last Admin: 09/22/18 19:39 Dose: 0.63 mg Losartan Potassium (Cozaar) 50 mg PO DAILY BLANK Last Admin: 09/20/18 12:21 Dose: 50 mg Losartan Potassium (Cozaar) 50 mg NG DAILY BLANK Last Admin: 09/26/18 09:23 Dose: 50 mg Methylprednisolone (Solu-Medrol) 60 mg IVP Q8 BLANK Last Admin: 09/26/18 05:10 Dose: 60 mg Montelukast Sodium (Singulair) 10 mg PO HS BLANK Last Admin: 09/25/18 21:06 Dose: 10 mg - Labs Labs: 09/26/18 05:00 09/26/18 05:00
--- NOTE | 2018-09-26 10:11 | RAD ---
Date of service: 09/26/2018 HISTORY: intubated; status asthmaticus COMPARISON: No prior. FINDINGS: Situ ETT, tip of which lies 5.1 cm above asher. In situ feeding tube tip of which overlies left parasagittal upper abdomen. LUNGS: Minor bibasilar atelectasis. PLEURA: No significant pleural effusion identified, no pneumothorax apparent. CARDIOVASCULAR: Minor aortic atherosclerotic calcification present. Normal cardiac size. No pulmonary vascular congestion. OSSEOUS STRUCTURES: No significant abnormalities. VISUALIZED UPPER ABDOMEN: Normal. OTHER FINDINGS: None. IMPRESSION: ETT and NGT as above. Mild bibasilar atelectasis
[2018-09-26] MEDS: Levalbuterol 0.63 MG/3 ML Inhal Soln UD IH PRN (11:40)
[2018-09-26] MEDS: Ipratropium 0.02% Inhal Soln (0.5 mg/2.5 ml) UD IH PRN (11:40)
--- NOTE | 2018-09-26 13:42 | CP.CCUPN ---
<Brian Benz - Last Filed: 09/26/18 15:09> CCU Subjective - Physician Review Subjective (Free Text): Brian Benz, PGY1 ICU Progress Note for Dr. Bautista Patient was seen and examined at bedside this morning. Overnight, patient was hypertensive (BP 180s/90s) and started on labetolol drip by night team. BP was improved this morning at 158/82. No fevers overnight. He was placed on a trial of pressure support this morning; tolerated it well. Off sedation; awake, alert, following commands. Patient was successfully extubated. Patient denies cp, abdominal pain, numbness/tingling of legs, fevers, chills, n/v/d. A full 12 point ROS was conducted and unremarkable except as stated above. CCU Objective - Vital Signs / Intake & Output Vital Signs (Last 4 hours): Vital Signs Pulse 09/26/18 10:00 77 Intake and Output (Last 8hrs): Intake & Output 09/25/18 09/26/18 09/26/18 22:59 06:59 14:59 Intake Total 1410 1271 Output Total 550 1215 Balance 860 56 Weight 68.946 kg Intake: IV 370 731 IVPB 300 300 Right Hand 35 Right Upper arm 35 labetalol 360 propofol 56 Tube Feeding 1040 540 Output: Urine 550 1215 Urethral ([place]) 550 1215 Other: # Bowel Movements 0 - Physical Exam Head: Positive for: Atraumatic, Normocephalic Pupils: Positive for: PERRL Extroacular Muscles: Positive for: EOMI Conjunctiva: Positive for: Normal Mouth: Positive for: Moist Mucous Membranes Nose (External): Positive for: Other (NG tube in place) Neck: Positive for: Normal Range of Motion Respiratory/Chest: Positive for: Wheezes (wheezes b/l ). Negative for: Respiratory Distress, Rales, Rhonchi Cardiovascular: Positive for: Regular Rate and Rhythm, Normal S1, S2. Negative for: Murmurs Abdomen: Negative for: Tenderness, Distention, Peritoneal Signs Genitourinary Male: Positive for: Other ([place] in place) Back: Positive for: Normal Inspection Upper Extremity: Positive for: Normal Inspection. Negative for: Cyanosis, Edema Lower Extremity: Positive for: Normal Inspection. Negative for: Edema Skin: Positive for: Warm, Dry, Normal Color. Negative for: Rashes Psychiatric: Positive for: Alert, Oriented x 3, Normal Insight, Normal Concentration - Medications Active Medications: Active Medications Generic Name Dose Route Start Last Admin Trade Name Freq PRN Reason Stop Dose Admin Acetylcysteine 3 ml 09/25/18 06:05 09/26/18 09:23 Acetylcysteine 20% PO 3 ml TID BLANK Administration Albuterol/Ipratropium 3 ml 09/23/18 08:15 09/26/18 13:21 Duoneb 3 Mg/0.5 Mg (3 Ml) Ud IH 3 ml Q6H BLANK Administration Allopurinol 300 mg 09/20/18 11:00 09/20/18 12:23 Zyloprim PO 300 mg DAILY BLANK Administration Amlodipine Besylate 5 mg 09/26/18 10:00 09/26/18 09:24 Norvasc NG 5 mg DAILY BLANK Administration Arformoterol Tartrate 15 mcg 09/20/18 20:00 09/25/18 08:03 Brovana IH 15 mcg [id number] BLANK Administration Budesonide 1 mg 09/20/18 20:00 09/26/18 08:06 Pulmicort Respules IH 1 mg [id number] BLANK Administration Ergocalciferol 1 cap 09/25/18 13:45 09/25/18 13:50 Drisdol 50,000 Intl Units Cap PO 1 cap Q7D BLANK Administration Famotidine 20 mg 09/24/18 18:00 09/26/18 09:23 Pepcid IVP 20 mg DAILY BLANK Administration Heparin Sodium (Porcine) 5,000 units 09/22/18 09:15 09/26/18 05:09 Heparin SC 5,000 units Q8 BLANK Administration Protocol Meropenem/Sodium Chloride 500 mg in 50 mls @ 12.5 mls/hr 09/23/18 14:00 09/26/18 05:09 Merrem Iv 500 Mg/Ns 50 Ml IVPB 10/02/18 14:01 12.5 mls/hr Q8 BLANK Administration Protocol Propofol 1,000 mg in 100 mls @ 2 mls/hr 09/26/18 00:04 09/26/18 02:00 Diprivan IV 20 mcg/kg/min .Q24H PRN 8.001 mls/hr TITRATE PER MD ORDER Titration Protocol 5 MCG/KG/MIN Labetalol HCl 100 mg/ Sodium 100 mls @ 60 mls/hr 09/26/18 01:05 09/26/18 01:45 Chloride IV 1 mg/min .Q1H40M PRN 60 mls/hr TITRATE PER MD ORDER Administration Protocol 1 MG/MIN Labetalol HCl 600 mg/ Sodium 600 mls @ 60 mls/hr 09/26/18 03:05 Chloride IV .Q10H PRN TITRATE PER MD ORDER Protocol 1 MG/MIN Ipratropium Avalon 0.5 mg 09/20/18 13:58 09/26/18 11:40 Atrovent IH 0.5 mg [id number] PRN Administration Shortness of Breath Levalbuterol HCl 0.63 mg 09/21/18 05:30 09/26/18 11:40 Xopenex IH 0.63 mg Q2H PRN Administration sob/wheezing Losartan Potassium 50 mg 09/20/18 10:45 09/20/18 12:21 Cozaar PO 50 mg DAILY BLANK Administration Losartan Potassium 50 mg 09/24/18 12:15 09/26/18 09:23 Cozaar NG 50 mg DAILY BLANK Administration Methylprednisolone 60 mg 09/24/18 10:40 09/26/18 05:10 Solu-Medrol IVP 60 mg Q8 BLANK Administration Montelukast Sodium 10 mg 09/20/18 22:15 09/25/18 21:06 Singulair PO 10 mg HS BLANK Administration - Patient Studies Lab Studies: Lab Studies 09/26/18 09/26/18 09/26/18 Range/Units 10:00 05:00 05:00 WBC 17.2 H D (4.5-11.0) 10^3/uL RBC 4.50 (3.5-6.1) 10^6/uL Hgb 13.6 L (14.0-18.0) g/dL Hct 42.6 (42.0-52.0) % MCV 94.7 D (80.0-105.0) fl MCH 30.2 (25.0-35.0) pg MCHC 31.9 (31.0-37.0) g/dl RDW 12.3 (11.5-14.5) % Plt Count 102 L (120.0-450.0) 10^3/uL MPV 10.7 (7.0-11.0) fl Gran % 95.8 H (50.0-68.0) % Lymph % (Auto) 3.4 L (22.0-35.0) % [place] % (Auto) 0.8 L (1.0-6.0) % Eos % (Auto) 0.0 L (1.5-5.0) % Baso % (Auto) 0.0 (0.0-3.0) % Gran # 16.50 H (1.4-6.5) Lymph # (Auto) 0.6 L (1.2-3.4) [place] # (Auto) 0.1 (0.1-0.6) Eos # (Auto) 0.0 (0.0-0.7) Baso # (Auto) 0.00 (0.0-2.0) K/mm3 pCO2 (35-45) mm/Hg pO2 (80-100) mm/Hg HCO3 (21-28) mmol/L ABG pH (7.35-7.45) ABG Total CO2 (22-28) mmol.L ABG O2 Saturation (95-98) % ABG O2 Content (15-23) ML/dl ABG Base Excess (-2.0-3.0) mmol/L ABG Hemoglobin (11.7-17.4) g/dL ABG Carboxyhemoglobin (0.5-1.5) % POC ABG HHb (Measured) (0-5) % ABG Methemoglobin (0.0-3.0) % ABG O2 Capacity (16-24) mL/dl Hgb O2 Saturation (95.0-98.0) % FiO2 % Sodium 143 (132-148) mmol/L Potassium 4.3 (3.6-5.0) mmol/L Chloride 111 H (98-107) mmol/L Carbon Dioxide 31 (21-33) mmol/L Anion Gap 6 L (10-20) BUN 50 H (7-21) mg/dL Creatinine 1.3 (0.8-1.5) mg/dl Est GFR ( Amer) > 60 Est GFR (Non-Af Amer) 54 Random Glucose 147 H (70-110) mg/dL Calcium 8.0 L (8.4-10.5) mg/dL Phosphorus 3.0 (2.5-4.5) mg/dL Magnesium 2.4 H (1.7-2.2) mg/dL Total Bilirubin 0.6 (0.2-1.3) mg/dL AST 39 (17-59) U/L ALT 63 H (7-56) U/L Alkaline Phosphatase 51 (38-126) U/L Total Protein 5.5 L (5.8-8.3) g/dL Albumin 2.9 L (3.0-4.8) g/dL Globulin 2.6 gm/dL Albumin/Globulin Ratio 1.1 (1.1-1.8) Total T3 0.65 L (0.97-1.69) ng/mL 09/26/18 Range/Units 05:00 WBC (4.5-11.0) 10^3/uL RBC (3.5-6.1) 10^6/uL Hgb (14.0-18.0) g/dL Hct (42.0-52.0) % MCV (80.0-105.0) fl MCH (25.0-35.0) pg MCHC (31.0-37.0) g/dl RDW (11.5-14.5) % Plt Count (120.0-450.0) 10^3/uL MPV (7.0-11.0) fl Gran % (50.0-68.0) % Lymph % (Auto) (22.0-35.0) % [place] % (Auto) (1.0-6.0) % Eos % (Auto) (1.5-5.0) % Baso % (Auto) (0.0-3.0) % Gran # (1.4-6.5) Lymph # (Auto) (1.2-3.4) [place] # (Auto) (0.1-0.6) Eos # (Auto) (0.0-0.7) Baso # (Auto) (0.0-2.0) K/mm3 pCO2 44 (35-45) mm/Hg pO2 113.0 H (80-100) mm/Hg HCO3 28.5 H (21-28) mmol/L ABG pH 7.42 (7.35-7.45) ABG Total CO2 29.9 H (22-28) mmol.L ABG O2 Saturation 99.9 H (95-98) % ABG O2 Content 18.8 (15-23) ML/dl ABG Base Excess 3.4 H (-2.0-3.0) mmol/L ABG Hemoglobin 13.7 (11.7-17.4) g/dL ABG Carboxyhemoglobin 2.0 H (0.5-1.5) % POC ABG HHb (Measured) 0.1 (0-5) % ABG Methemoglobin 1.0 (0.0-3.0) % ABG O2 Capacity 18.8 (16-24) mL/dl Hgb O2 Saturation 96.9 (95.0-98.0) % FiO2 35.0 % Sodium (132-148) mmol/L Potassium (3.6-5.0) mmol/L Chloride (98-107) mmol/L Carbon Dioxide (21-33) mmol/L Anion Gap (10-20) BUN (7-21) mg/dL Creatinine (0.8-1.5) mg/dl Est GFR ( Amer) Est GFR (Non-Af Amer) Random Glucose (70-110) mg/dL Calcium (8.4-10.5) mg/dL Phosphorus (2.5-4.5) mg/dL Magnesium (1.7-2.2) mg/dL Total Bilirubin (0.2-1.3) mg/dL AST (17-59) U/L ALT (7-56) U/L Alkaline Phosphatase (38-126) U/L Total Protein (5.8-8.3) g/dL Albumin (3.0-4.8) g/dL Globulin gm/dL Albumin/Globulin Ratio (1.1-1.8) Total T3 (0.97-1.69) ng/mL Laboratory Results - last 24 hr 09/26/18 09/26/18 09/26/18 05:00 05:00 05:00 WBC 17.2 H D RBC 4.50 Hgb 13.6 L Hct 42.6 MCV 94.7 D MCH 30.2 MCHC 31.9 RDW 12.3 Plt Count 102 L MPV 10.7 Gran % 95.8 H Lymph % (Auto) 3.4 L [place] % (Auto) 0.8 L Eos % (Auto) 0.0 L Baso % (Auto) 0.0 Gran # 16.50 H Lymph # (Auto) 0.6 L [place] # (Auto) 0.1 Eos # (Auto) 0.0 Baso # (Auto) 0.00 pCO2 44 pO2 113.0 H HCO3 28.5 H ABG pH 7.42 ABG Total CO2 29.9 H ABG O2 Saturation 99.9 H ABG O2 Content 18.8 ABG Base Excess 3.4 H ABG Hemoglobin 13.7 ABG Carboxyhemoglobin 2.0 H POC ABG HHb (Measured) 0.1 ABG Methemoglobin 1.0 ABG O2 Capacity 18.8 Hgb O2 Saturation 96.9 FiO2 35.0 Sodium 143 Potassium 4.3 Chloride 111 H Carbon Dioxide 31 Anion Gap 6 L BUN 50 H Creatinine 1.3 Est GFR ( Amer) > 60 Est GFR (Non-Af Amer) 54 Random Glucose 147 H Calcium 8.0 L Phosphorus 3.0 Magnesium 2.4 H Total Bilirubin 0.6 AST 39 ALT 63 H Alkaline Phosphatase 51 Total Protein 5.5 L Albumin 2.9 L Globulin 2.6 Albumin/Globulin Ratio 1.1 Total T3 09/26/18 10:00 WBC RBC Hgb Hct MCV MCH MCHC RDW Plt Count MPV Gran % Lymph % (Auto) [place] % (Auto) Eos % (Auto) Baso % (Auto) Gran # Lymph # (Auto) [place] # (Auto) Eos # (Auto) Baso # (Auto) pCO2 pO2 HCO3 ABG pH ABG Total CO2 ABG O2 Saturation ABG O2 Content ABG Base Excess ABG Hemoglobin ABG Carboxyhemoglobin POC ABG HHb (Measured) ABG Methemoglobin ABG O2 Capacity Hgb O2 Saturation FiO2 Sodium Potassium Chloride Carbon Dioxide Anion Gap BUN Creatinine Est GFR ( Amer) Est GFR (Non-Af Amer) Random Glucose Calcium Phosphorus Magnesium Total Bilirubin AST ALT Alkaline Phosphatase Total Protein Albumin Globulin Albumin/Globulin Ratio Total T3 0.65 L Review of Systems - Review of Systems All systems: reviewed and no additional remarkable complaints except (as per HPI) Critical Care Progress Note - Extremities/Vascular Does the Patient have a Central Venous Catheter?: No Does the Patient need a Central Venous Catheter?: No Does the Patient have a [place] Catheter?: Yes Does the Patient need a [place] Catheter?: Yes Catheter Insertion Criteria: Need for accurate measurement of output in critically ill patient - Prophylaxis GI Prophylaxis GI: Pepsid - Prophylaxis DVT Prophylaxis DVT: Heparin SQ - Nutrition Nutrition: Nutrition Category Date Time Status NPO Diet [DIET] Diets 09/22/18 Lunch Ordered Assessment/Plan - Assessment and Plan (Free Text) Assessment: Patient is a 73 y/o M with PMHx of COPD and Asthma who was admitted to ICU for management of status asthmaticus complicated with allergic reaction likely due to zithromax administration. He was intubated/sedated due to hypercapnic respiratory failure. After failing multiple weaning trials, patient is now successfully extubated. Plan: Neuro: -Off sedation; AAOx3 -maintain normothermia Cardio: -Hypertensive episodes overnight; started on labetolol drip -Patient's blood pressure has now improved this morning -Hx HTN -Maintain MAP>65 Pulm: -Successfully extubated today; placed on nasal cannula -CXR (09/26): no changes from previous imaging -duoneb treatment ordered for wheezing -Admitted to ICU for Hypercapnic respiratory failure with improved respiratory acidosis in the setting of Status Asthmaticus & ?Anaphylactic Reaction to Azithromycin -c/w solu-medrol 60mg q8h, brovana, budesonide, duonebs. Consider tapering steroids. -maintain O2 sat >90% -pulmonology following, Dr Coughlin Renal: -Pre-renal AMPARO; BUN/Cr 50/1.3 -monitor ins/outs -maintain euvolemia -avoid nephrotoxic drugs -Nephro (Dr Vegas) is following ID: -leukocytosis - consider 2/2 steroid use -continue doxycycline (Day 6), meropenem (Day 4). Follow up ID recommendations. -MRSA negative -Blood cx negative x2 (prelim) -ID is following GI: -Advance diet as tolerated -GI ppx MSK: -Hx gouty arthritis -held colchicine, allopurinol Endo: -TSH significantly low -T3 level ordered -Free T4 level wnl -maintain euglycemia Heme: -H/H stable -DVT ppx Prophylaxis: -GI ppx: Pepcid -DVT ppx: heparin sc Dispo: Patient was extubated successfully today. Will continue to monitor in the ICU. Case was discussed and reviewed with Attending Physician, Dr. Bautista <Satish Bautista - Last Filed: 09/26/18 18:21> CCU Objective - Vital Signs / Intake & Output Vital Signs (Last 4 hours): Vital Signs Pulse BP 09/26/18 16:03 75 141/73 Intake and Output (Last 8hrs): Intake & Output 09/26/18 09/26/18 09/26/18 06:59 14:59 22:59 Intake Total 1271 Output Total 1215 Balance 56 Weight 68.946 kg Intake: IV 731 IVPB 300 labetalol 360 propofol 56 Tube Feeding 540 Output: Urine 1215 Urethral ([place]) 1215 - Medications Active Medications: Active Medications Generic Name Dose Route Start Last Admin Trade Name Freq PRN Reason Stop Dose Admin Acetylcysteine 3 ml 09/25/18 06:05 09/26/18 17:48 Acetylcysteine 20% PO 3 ml TID BLANK Administration Albuterol/Ipratropium 3 ml 09/23/18 08:15 09/26/18 13:21 Duoneb 3 Mg/0.5 Mg (3 Ml) Ud IH 3 ml Q6H BLANK Administration Allopurinol 300 mg 09/20/18 11:00 09/20/18 12:23 Zyloprim PO 300 mg DAILY BLANK Administration Amlodipine Besylate 5 mg 09/26/18 10:00 09/26/18 09:24 Norvasc NG 5 mg DAILY BLANK Administration Arformoterol Tartrate 15 mcg 09/20/18 20:00 09/25/18 08:03 Brovana IH 15 mcg [id number] BLANK Administration Budesonide 1 mg 09/20/18 20:00 09/26/18 08:06 Pulmicort Respules IH 1 mg [id number] BLANK Administration Ergocalciferol 1 cap 09/25/18 13:45 09/25/18 13:50 Drisdol 50,000 Intl Units Cap PO 1 cap Q7D BLANK Administration Famotidine 20 mg 09/24/18 18:00 09/26/18 09:23 Pepcid IVP 20 mg DAILY BLANK Administration Heparin Sodium (Porcine) 5,000 units 09/22/18 09:15 09/26/18 13:19 Heparin SC 5,000 units Q8 BLANK Administration Protocol Labetalol HCl 600 mg/ Sodium 600 mls @ 60 mls/hr 09/26/18 03:05 09/26/18 16:03 Chloride IV 1 mg/min .Q10H PRN 60 mls/hr TITRATE PER MD ORDER Administration Protocol 1 MG/MIN Ipratropium Avalon 0.5 mg 09/20/18 13:58 09/26/18 11:40 Atrovent IH 0.5 mg [id number] PRN Administration Shortness of Breath Levalbuterol HCl 0.63 mg 09/21/18 05:30 09/26/18 11:40 Xopenex IH 0.63 mg Q2H PRN Administration sob/wheezing Losartan Potassium 50 mg 09/20/18 10:45 09/20/18 12:21 Cozaar PO 50 mg DAILY BLANK Administration Losartan Potassium 50 mg 09/24/18 12:15 09/26/18 09:23 Cozaar NG 50 mg DAILY BLANK Administration Methylprednisolone 60 mg 09/24/18 10:40 09/26/18 13:20 Solu-Medrol IVP 60 mg Q8 BLANK Administration Montelukast Sodium 10 mg 09/20/18 22:15 09/25/18 21:06 Singulair PO 10 mg HS BLANK Administration - Patient Studies Lab Studies: Lab Studies 09/26/18 09/26/18 09/26/18 Range/Units 10:00 05:00 05:00 WBC 17.2 H D (4.5-11.0) 10^3/uL RBC 4.50 (3.5-6.1) 10^6/uL Hgb 13.6 L (14.0-18.0) g/dL Hct 42.6 (42.0-52.0) % MCV 94.7 D (80.0-105.0) fl MCH 30.2 (25.0-35.0) pg MCHC 31.9 (31.0-37.0) g/dl RDW 12.3 (11.5-14.5) % Plt Count 102 L (120.0-450.0) 10^3/uL MPV 10.7 (7.0-11.0) fl Gran % 95.8 H (50.0-68.0) % Lymph % (Auto) 3.4 L (22.0-35.0) % [place] % (Auto) 0.8 L (1.0-6.0) % Eos % (Auto) 0.0 L (1.5-5.0) % Baso % (Auto) 0.0 (0.0-3.0) % Gran # 16.50 H (1.4-6.5) Lymph # (Auto) 0.6 L (1.2-3.4) [place] # (Auto) 0.1 (0.1-0.6) Eos # (Auto) 0.0 (0.0-0.7) Baso # (Auto) 0.00 (0.0-2.0) K/mm3 pCO2 (35-45) mm/Hg pO2 (80-100) mm/Hg HCO3 (21-28) mmol/L ABG pH (7.35-7.45) ABG Total CO2 (22-28) mmol.L ABG O2 Saturation (95-98) % ABG O2 Content (15-23) ML/dl ABG Base Excess (-2.0-3.0) mmol/L ABG Hemoglobin (11.7-17.4) g/dL ABG Carboxyhemoglobin (0.5-1.5) % POC ABG HHb (Measured) (0-5) % ABG Methemoglobin (0.0-3.0) % ABG O2 Capacity (16-24) mL/dl Hgb O2 Saturation (95.0-98.0) % FiO2 % Sodium 143 (132-148) mmol/L Potassium 4.3 (3.6-5.0) mmol/L Chloride 111 H (98-107) mmol/L Carbon Dioxide 31 (21-33) mmol/L Anion Gap 6 L (10-20) BUN 50 H (7-21) mg/dL Creatinine 1.3 (0.8-1.5) mg/dl Est GFR ( Amer) > 60 Est GFR (Non-Af Amer) 54 Random Glucose 147 H (70-110) mg/dL Calcium 8.0 L (8.4-10.5) mg/dL Phosphorus 3.0 (2.5-4.5) mg/dL Magnesium 2.4 H (1.7-2.2) mg/dL Total Bilirubin 0.6 (0.2-1.3) mg/dL AST 39 (17-59) U/L ALT 63 H (7-56) U/L Alkaline Phosphatase 51 (38-126) U/L Total Protein 5.5 L (5.8-8.3) g/dL Albumin 2.9 L (3.0-4.8) g/dL Globulin 2.6 gm/dL Albumin/Globulin Ratio 1.1 (1.1-1.8) Total T3 0.65 L (0.97-1.69) ng/mL 09/26/18 Range/Units 05:00 WBC (4.5-11.0) 10^3/uL RBC (3.5-6.1) 10^6/uL Hgb (14.0-18.0) g/dL Hct (42.0-52.0) % MCV (80.0-105.0) fl MCH (25.0-35.0) pg MCHC (31.0-37.0) g/dl RDW (11.5-14.5) % Plt Count (120.0-450.0) 10^3/uL MPV (7.0-11.0) fl Gran % (50.0-68.0) % Lymph % (Auto) (22.0-35.0) % [place] % (Auto) (1.0-6.0) % Eos % (Auto) (1.5-5.0) % Baso % (Auto) (0.0-3.0) % Gran # (1.4-6.5) Lymph # (Auto) (1.2-3.4) [place] # (Auto) (0.1-0.6) Eos # (Auto) (0.0-0.7) Baso # (Auto) (0.0-2.0) K/mm3 pCO2 44 (35-45) mm/Hg pO2 113.0 H (80-100) mm/Hg HCO3 28.5 H (21-28) mmol/L ABG pH 7.42 (7.35-7.45) ABG Total CO2 29.9 H (22-28) mmol.L ABG O2 Saturation 99.9 H (95-98) % ABG O2 Content 18.8 (15-23) ML/dl ABG Base Excess 3.4 H (-2.0-3.0) mmol/L ABG Hemoglobin 13.7 (11.7-17.4) g/dL ABG Carboxyhemoglobin 2.0 H (0.5-1.5) % POC ABG HHb (Measured) 0.1 (0-5) % ABG Methemoglobin 1.0 (0.0-3.0) % ABG O2 Capacity 18.8 (16-24) mL/dl Hgb O2 Saturation 96.9 (95.0-98.0) % FiO2 35.0 % Sodium (132-148) mmol/L Potassium (3.6-5.0) mmol/L Chloride (98-107) mmol/L Carbon Dioxide (21-33) mmol/L Anion Gap (10-20) BUN (7-21) mg/dL Creatinine (0.8-1.5) mg/dl Est GFR ( Amer) Est GFR (Non-Af Amer) Random Glucose (70-110) mg/dL Calcium (8.4-10.5) mg/dL Phosphorus (2.5-4.5) mg/dL Magnesium (1.7-2.2) mg/dL Total Bilirubin (0.2-1.3) mg/dL AST (17-59) U/L ALT (7-56) U/L Alkaline Phosphatase (38-126) U/L Total Protein (5.8-8.3) g/dL Albumin (3.0-4.8) g/dL Globulin gm/dL Albumin/Globulin Ratio (1.1-1.8) Total T3 (0.97-1.69) ng/mL Laboratory Results - last 24 hr 09/26/18 09/26/18 09/26/18 05:00 05:00 05:00 WBC 17.2 H D RBC 4.50 Hgb 13.6 L Hct 42.6 MCV 94.7 D MCH 30.2 MCHC 31.9 RDW 12.3 Plt Count 102 L MPV 10.7 Gran % 95.8 H Lymph % (Auto) 3.4 L [place] % (Auto) 0.8 L Eos % (Auto) 0.0 L Baso % (Auto) 0.0 Gran # 16.50 H Lymph # (Auto) 0.6 L [place] # (Auto) 0.1 Eos # (Auto) 0.0 Baso # (Auto) 0.00 pCO2 44 pO2 113.0 H HCO3 28.5 H ABG pH 7.42 ABG Total CO2 29.9 H ABG O2 Saturation 99.9 H ABG O2 Content 18.8 ABG Base Excess 3.4 H ABG Hemoglobin 13.7 ABG Carboxyhemoglobin 2.0 H POC ABG HHb (Measured) 0.1 ABG Methemoglobin 1.0 ABG O2 Capacity 18.8 Hgb O2 Saturation 96.9 FiO2 35.0 Sodium 143 Potassium 4.3 Chloride 111 H Carbon Dioxide 31 Anion Gap 6 L BUN 50 H Creatinine 1.3 Est GFR ( Amer) > 60 Est GFR (Non-Af Amer) 54 Random Glucose 147 H Calcium 8.0 L Phosphorus 3.0 Magnesium 2.4 H Total Bilirubin 0.6 AST 39 ALT 63 H Alkaline Phosphatase 51 Total Protein 5.5 L Albumin 2.9 L Globulin 2.6 Albumin/Globulin Ratio 1.1 Total T3 09/26/18 10:00 WBC RBC Hgb Hct MCV MCH MCHC RDW Plt Count MPV Gran % Lymph % (Auto) [place] % (Auto) Eos % (Auto) Baso % (Auto) Gran # Lymph # (Auto) [place] # (Auto) Eos # (Auto) Baso # (Auto) pCO2 pO2 HCO3 ABG pH ABG Total CO2 ABG O2 Saturation ABG O2 Content ABG Base Excess ABG Hemoglobin ABG Carboxyhemoglobin POC ABG HHb (Measured) ABG Methemoglobin ABG O2 Capacity Hgb O2 Saturation FiO2 Sodium Potassium Chloride Carbon Dioxide Anion Gap BUN Creatinine Est GFR ( Amer) Est GFR (Non-Af Amer) Random Glucose Calcium Phosphorus Magnesium Total Bilirubin AST ALT Alkaline Phosphatase Total Protein Albumin Globulin Albumin/Globulin Ratio Total T3 0.65 L Critical Care Progress Note - Nutrition Nutrition: Nutrition Category Date Time Status NPO Diet [DIET] Diets 09/22/18 Lunch Ordered Addendum Addendum: 09/26/18 18:19 MICU ATTENDING ADDENDUM: Patient seen and examined. Case discussed in round with housestaff. Agree with note above with the following additions/exception: 73 y/o M with PMHx of COPD and Asthma intubated for resp failure. Unclear if this was related to his azithro (reaction?). Yesterday PeakPressure is 24 and PlatPressure is 17 which does not suggest increased airway resistance. Cuff leak present. Failed CPAP trial yesterday. Will trial again today. Kept off sedation for the most part last night. Keep off sedatin today and if decent trial, will extubate. Cont broncho dilators/. Given his tachycardia , held Brovana to limit B2 agonsits. cont q6hour duonebs, steroids 60qh as per pulm, would start to taper tomorrow if extubated today abx as per ID Rest of care above Satish Bautista MD Pulmonary Critical Care and Sleep Medicine Critical Care Time: 39 mins
--- NOTE | 2018-09-26 15:31 | PN ---
DATE: 09/26/2018 SUBJECTIVE: The patient was seen early this morning in [facility], bed 4 and the patient remains intubated on a ventilator at that time. PHYSICAL EXAMINATION: VITAL SIGNS: Temperature is 98, blood pressure is 158/80, respiratory rate of on the vent and heart rate of 88. HEENT: Unremarkable. NECK: Supple. LUNGS: Have decreased breath sounds. HEART: Normal S1 and S2. ABDOMEN: Soft. LABORATORY DATA: Reveals a white count of 17,000 and hemoglobin of 13. BUN of 50 and creatinine of 1.3. Procalcitonin is 0.10. Urinalysis is noted and serology is negative. Microbiology reveals the blood cultures are negative and nasal MRSA screen is negative. The patient had a chest x-ray today and tip of the ET tube is noted and progress note is reviewed. He states that the patient was later today was extubated successfully. ASSESSMENT AND PLAN: This is a 73-year-old male with ventilator-dependent respiratory failure, hypoxic respiratory failure due to chronic obstructive lung disease, no evidence of pneumonia on chest x-ray, history of inflammatory arthritis and gout, status post arthrocentesis to be septic arthritis with a history of severe sepsis, bilateral lower lobe healthcare-associated pneumonia, macular rash and questionable Zosyn reaction, hypertension, gout, chronic obstructive lung disease on doxycycline day #6, meropenem day #4 with the blood cultures negative, methicillin-resistant Staphylococcus aureus screen is negative and the patient now this morning was intubated, at this time he has now been extubated and we will discontinue the meropenem and the patient tolerated the meropenem well and we will follow the patient off of antibiotics. The patient is on Solu-Medrol. Malvin Bear MD
--- NOTE | 2018-09-26 21:13 | PN ---
DATE: 09/26/2018 PULMONARY CRITICAL CARE PROGRESS NOTE REFERRING PHYSICIAN: Mary Roper MD SUBJECTIVE: He is lying in the bed, head at 45 degrees. Spoke to tipple tender, Dr. Bautista. Extubated this morning. Still sleepy, tired, but arousable. Mild short of breath. Not much cough. No sputum production. No nausea. No vomiting. No diarrhea. No leg pain or leg swelling. OBJECTIVE: GENERAL: Lying in the bed comfortably, sleepy. VITAL SIGNS: Temperature is 98, heart rate is 75, respiratory rate is 20, blood pressure 158/82, pulse ox 93% on nasal cannula. HEENT: Moist mucous membrane. Crowded airway. Mallampati score is 4. NECK: Supple. No JVD. LUNGS: Has a prolonged expiratory phase with some wheezing. HEART: S1 and S2. ABDOMEN: Soft, nontender. No organomegaly. EXTREMITIES: No edema. NEUROLOGICAL: Sleepy, arousable. Follows simple command. MEDICATIONS: He is on Mucomyst inhaled three times a day, Atrovent 0.5 mg every 6 hours p.r.n., Brovana inhaled twice a day, Cozaar 50 mg daily, vitamin D 50,000 units weekly, DuoNeb every 6 hours [id number], heparin 5000 units subcu every 8 hours, labetalol, Norvasc 5 mg daily, Pepcid 20 mg daily, Pulmicort inhaled twice a day, Singulair 10 mg daily, Solu-Medrol 60 mg every 8 hours, Xopenex inhaled every 2 hours p.r.n., allopurinol 300 mg daily. LABORATORY DATA: Shows hemoglobin 13.6, hematocrit 42.6, WBC 17.2, platelet count is 102. ABG shows pH of 7.42, pCO2 of 42, O2 of 113, this is on 35% oxygen while he was on ventilator. Sodium 142, potassium 4.3, chloride 111, bicarbonate 31, BUN 50, creatinine 1.3, glucose 147, calcium is 8. AST 39, ALT 63, alk phos is 51, albumin 2.9. total is 0.65. Microbiology: Blood culture and nasal culture, there is no growth. Chest x-ray done this morning shows no infiltrate. ET tube is still in at that time. IMPRESSION AND PLAN: Exacerbation of chronic obstructive lung disease, end up with respiratory failure, was difficult extubation, may be component of sleep apnea syndrome; hypertension; severe gout, steroids dependent. 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 Again, case discussed with nursing staff. Also spoke to tipple tender, Dr. Bautista. Continue high-dose steroids for now because he is at high risk for reintubation. Sleep apnea precaution. May place on bilevel positive airway pressure tonight while sleeping with 12/7 and 35% oxygen. Gastric prophylaxis. Deep venous thrombosis prophylaxis. Follow up labs in the morning. Critical care time more than 35 minutes. Thank you and we will follow with you. Morgan Coughlin MD
[2018-09-27 05:59] LABS: ARTERIAL BLOOD GAS HCO3 30.5 mmol/L (21-28); ARTERIAL BLOOD GAS HEMOGLOBIN 13.3 g/dL (11.7-17.4); ARTERIAL BLOOD GAS O2 CAPACITY 18.1 mL/dl (16-24); ARTERIAL BLOOD GAS O2 CONTENT 17.8 ML/dl (15-23); ARTERIAL BLOOD GAS O2 SAT 98.2 % (95-98); ARTERIAL BLOOD GAS PCO2 41 mm/Hg (35-45); ARTERIAL BLOOD GAS PH 7.48 (7.35-7.45); ARTERIAL BLOOD GAS TCO2 31.8 mmol.L (22-28)
[2018-09-27 06:47] LABS: GRAN # 12.76 (1.4-6.5); GRAN % 95.3 % (50.0-68.0); HEMOGLOBIN 13.4 g/dL (14.0-18.0); LYMPH # 0.3 (1.2-3.4); LYMPH % 1.9 % (22.0-35.0); MEAN CELL VOLUME 92.2 fl (80.0-105.0); MEAN CORPUSCULAR HEMOGLOBIN 29.7 pg (25.0-35.0); MEAN CORPUSCULAR HGB CONC 32.2 g/dl (31.0-37.0); MONO # 0.4 (0.1-0.6); MONO % 2.8 % (1.0-6.0); PLATELET COUNT 85 10^3/uL (120.0-450.0); RBC 4.51 10^6/uL (3.5-6.1); RED CELL DISTRIBUTION WIDTH 12.1 % (11.5-14.5); WHITE BLOOD COUNT 13.4 10^3/uL (4.5-11.0)
[2018-09-27 07:08] LABS: ALB/GLOB RATIO 1.2 (1.1-1.8); ALBUMIN 2.9 g/dL (3.0-4.8); ALT/SGPT 56 U/L (7-56); AST/SGOT 39 U/L (17-59); BLOOD UREA NITROGEN 38 mg/dL (7-21); CALCIUM 7.8 mg/dL (8.4-10.5); GFR NON-AFRICAN AMERICAN > 60
[2018-09-27] MEDS: Albuterol-Ipratrop 3 mg / 0.5 (3 ml) UD IH SCH ×3 (07:37→19:43)
[2018-09-27] MEDS: Budesonide 0.5 mg/2 ml Inhal Susp UD IH SCH ×2 (07:37→19:43)
[2018-09-27 08:22] LABS: LYMPHOCYTE 3 % (22.0-35.0); MONOCYTE 2 % (1.0-6.0); NEUTROPHIL 92 % (50.0-70.0)
[2018-09-27 08:23] LABS: ATYPICAL LYMPHOCYTE 3 % (0.0-0.0); PLATELET ESTIMATE NORMAL (NORMAL)
--- NOTE | 2018-09-27 08:31 | CP.CCUPN ---
<Sidney Vance - Last Filed: 09/27/18 12:25> CCU Subjective - Physician Review Subjective (Free Text): Sidney Vance DO, PGY1. ICU progress note for Dr Rojas Patient seen and examined at bedside. He is AAOx3 talking in full sentences, s/p extubation yesterday. NG tube still in place, feeling hungery and able to eat. No acute events overnight. Patient denied CP,SOB, palpitations, headache, blurry vision. CCU Objective - Vital Signs / Intake & Output Vital Signs (Last 4 hours): Vital Signs Pulse Resp BP Pulse Ox 09/27/18 07:20 69 17 100 09/27/18 07:10 70 21 100 09/27/18 07:00 69 19 161/77 H 95 09/27/18 06:50 68 20 100 09/27/18 06:40 68 20 99 09/27/18 06:30 67 17 100 09/27/18 06:20 69 21 100 09/27/18 06:10 69 20 100 09/27/18 06:00 67 17 163/83 H 95 09/27/18 05:50 70 19 99 09/27/18 05:40 74 20 100 09/27/18 05:30 78 25 H 97 09/27/18 05:20 75 21 94 L 09/27/18 05:10 70 19 94 L 09/27/18 05:00 73 21 156/78 H 90 L 09/27/18 04:50 70 19 93 L 09/27/18 04:40 73 19 92 L Intake and Output (Last 8hrs): Intake & Output 09/26/18 09/27/18 09/27/18 22:59 06:59 14:59 Intake Total 1020 210 Output Total 2500 1200 Balance -1480 -990 Weight 152 lb Intake: IV 920 60 IVF 60 IVPB 200 labetalol 720 propofol 0 Oral 0 150 Tube Feeding 100 Output: Urine 2500 1200 Urethral ([place]) 2500 1200 Other: # Bowel Movements 0 - Physical Exam Head: Positive for: Atraumatic, Normocephalic Pupils: Positive for: PERRL Extroacular Muscles: Positive for: EOMI Conjunctiva: Positive for: Normal Mouth: Positive for: Moist Mucous Membranes Nose (External): Positive for: Other Neck: Positive for: Normal Range of Motion Respiratory/Chest: Positive for: Clear to Auscultation, Good Air Exchange. Negative for: Respiratory Distress, Wheezes, Rales, Rhonchi Cardiovascular: Positive for: Regular Rate and Rhythm, Normal S1, S2. Negative for: Murmurs Abdomen: Negative for: Tenderness, Distention, Peritoneal Signs Genitourinary Male: Positive for: Other ([place] in place) Back: Positive for: Normal Inspection Upper Extremity: Positive for: Normal Inspection. Negative for: Cyanosis, Edema Lower Extremity: Positive for: Normal Inspection. Negative for: Edema Neurological: Positive for: CN II-XII Intact, Speech Normal Skin: Positive for: Warm, Dry, Normal Color, Other (right 1st metatarsal tophi). Negative for: Rashes Psychiatric: Positive for: Alert, Oriented x 3, Normal Insight, Normal Concentration - Medications Active Medications: Active Medications Generic Name Dose Route Start Last Admin Trade Name Freq PRN Reason Stop Dose Admin Acetylcysteine 3 ml 09/25/18 06:05 09/26/18 17:48 Acetylcysteine 20% PO 3 ml TID BLANK Administration Albuterol/Ipratropium 3 ml 09/23/18 08:15 09/27/18 07:37 Duoneb 3 Mg/0.5 Mg (3 Ml) Ud IH 3 ml Q6H BLANK Administration Allopurinol 300 mg 09/20/18 11:00 09/20/18 12:23 Zyloprim PO 300 mg DAILY BLANK Administration Amlodipine Besylate 5 mg 09/26/18 10:00 09/26/18 09:24 Norvasc NG 5 mg DAILY BLANK Administration Arformoterol Tartrate 15 mcg 09/20/18 20:00 09/25/18 08:03 Brovana IH 15 mcg [id number] BLANK Administration Budesonide 1 mg 09/20/18 20:00 09/27/18 07:37 Pulmicort Respules IH 1 mg [id number] BLANK Administration Ergocalciferol 1 cap 09/25/18 13:45 09/25/18 13:50 Drisdol 50,000 Intl Units Cap PO 1 cap Q7D BLANK Administration Famotidine 20 mg 09/24/18 18:00 09/26/18 09:23 Pepcid IVP 20 mg DAILY BLANK Administration Heparin Sodium (Porcine) 5,000 units 09/22/18 09:15 09/27/18 05:16 Heparin SC 5,000 units Q8 BLANK Administration Protocol Labetalol HCl 600 mg/ Sodium 600 mls @ 60 mls/hr 09/26/18 03:05 09/26/18 16:03 Chloride IV 1 mg/min .Q10H PRN 60 mls/hr TITRATE PER MD ORDER Administration Protocol 1 MG/MIN Ipratropium [place] 0.5 mg 09/20/18 13:58 09/26/18 11:40 Atrovent IH 0.5 mg [id number] PRN Administration Shortness of Breath Levalbuterol HCl 0.63 mg 09/21/18 05:30 09/26/18 11:40 Xopenex IH 0.63 mg Q2H PRN Administration sob/wheezing Losartan Potassium 50 mg 09/20/18 10:45 09/20/18 12:21 Cozaar PO 50 mg DAILY BLANK Administration Losartan Potassium 50 mg 09/24/18 12:15 09/26/18 09:23 Cozaar NG 50 mg DAILY BLANK Administration Methylprednisolone 60 mg 09/24/18 10:40 09/27/18 05:15 Solu-Medrol IVP 60 mg Q8 BLANK Administration Montelukast Sodium 10 mg 09/20/18 22:15 09/26/18 21:11 Singulair PO 10 mg HS BLANK Administration - Patient Studies Lab Studies: Lab Studies 09/27/18 09/27/18 09/27/18 Range/Units 06:10 06:10 05:40 WBC 13.4 H D (4.5-11.0) 10^3/uL RBC 4.51 (3.5-6.1) 10^6/uL Hgb 13.4 L (14.0-18.0) g/dL Hct 41.6 L (42.0-52.0) % MCV 92.2 (80.0-105.0) fl MCH 29.7 (25.0-35.0) pg MCHC 32.2 (31.0-37.0) g/dl RDW 12.1 (11.5-14.5) % Plt Count 85 L (120.0-450.0) 10^3/uL MPV 11.0 (7.0-11.0) fl Gran % 95.3 H (50.0-68.0) % Lymph % (Auto) 1.9 L (22.0-35.0) % Bladen % (Auto) 2.8 (1.0-6.0) % Eos % (Auto) 0.0 L (1.5-5.0) % Baso % (Auto) 0.0 (0.0-3.0) % Gran # 12.76 H (1.4-6.5) Lymph # (Auto) 0.3 L (1.2-3.4) [place]aden # (Auto) 0.4 (0.1-0.6) Eos # (Auto) 0.0 (0.0-0.7) Baso # (Auto) 0.00 (0.0-2.0) K/mm3 Neutrophils % (Manual) 92 H (50.0-70.0) % Lymphocytes % (Manual) 3 L (22.0-35.0) % Atypical Lymphs % 3 H (0.0-0.0) % Monocytes % (Manual) 2 (1.0-6.0) % Platelet Evaluation Normal (NORMAL) pCO2 41 (35-45) mm/Hg pO2 83.0 (80-100) mm/Hg HCO3 30.5 H (21-28) mmol/L ABG pH 7.48 H (7.35-7.45) ABG Total CO2 31.8 H (22-28) mmol.L ABG O2 Saturation 98.2 H (95-98) % ABG O2 Content 17.8 (15-23) ML/dl ABG Base Excess 6.4 H (-2.0-3.0) mmol/L ABG Hemoglobin 13.3 (11.7-17.4) g/dL ABG Carboxyhemoglobin 2.1 H (0.5-1.5) % POC ABG HHb (Measured) 1.7 (0-5) % ABG Methemoglobin 1.1 (0.0-3.0) % ABG O2 Capacity 18.1 (16-24) mL/dl Hgb O2 Saturation 95.1 (95.0-98.0) % FiO2 32.0 % Sodium 141 (132-148) mmol/L Potassium 4.0 (3.6-5.0) mmol/L Chloride 107 (98-107) mmol/L Carbon Dioxide 32 (21-33) mmol/L Anion Gap 6 L (10-20) BUN 38 H (7-21) mg/dL Creatinine 0.8 (0.8-1.5) mg/dl Est GFR ( Amer) > 60 Est GFR (Non-Af Amer) > 60 Random Glucose 121 H (70-110) mg/dL Calcium 7.8 L (8.4-10.5) mg/dL Phosphorus 4.0 (2.5-4.5) mg/dL Magnesium 2.4 H (1.7-2.2) mg/dL Total Bilirubin 0.8 (0.2-1.3) mg/dL AST 39 (17-59) U/L ALT 56 (7-56) U/L Alkaline Phosphatase 50 (38-126) U/L Total Protein 5.4 L (5.8-8.3) g/dL Albumin 2.9 L (3.0-4.8) g/dL Globulin 2.5 gm/dL Albumin/Globulin Ratio 1.2 (1.1-1.8) Total T3 (0.97-1.69) ng/mL 09/26/18 Range/Units 10:00 WBC (4.5-11.0) 10^3/uL RBC (3.5-6.1) 10^6/uL Hgb (14.0-18.0) g/dL Hct (42.0-52.0) % MCV (80.0-105.0) fl MCH (25.0-35.0) pg MCHC (31.0-37.0) g/dl RDW (11.5-14.5) % Plt Count (120.0-450.0) 10^3/uL MPV (7.0-11.0) fl Gran % (50.0-68.0) % Lymph % (Auto) (22.0-35.0) % [place] % (Auto) (1.0-6.0) % Eos % (Auto) (1.5-5.0) % Baso % (Auto) (0.0-3.0) % Gran # (1.4-6.5) Lymph # (Auto) (1.2-3.4) [place]aden # (Auto) (0.1-0.6) Eos # (Auto) (0.0-0.7) Baso # (Auto) (0.0-2.0) K/mm3 Neutrophils % (Manual) (50.0-70.0) % Lymphocytes % (Manual) (22.0-35.0) % Atypical Lymphs % (0.0-0.0) % Monocytes % (Manual) (1.0-6.0) % Platelet Evaluation (NORMAL) pCO2 (35-45) mm/Hg pO2 (80-100) mm/Hg HCO3 (21-28) mmol/L ABG pH (7.35-7.45) ABG Total CO2 (22-28) mmol.L ABG O2 Saturation (95-98) % ABG O2 Content (15-23) ML/dl ABG Base Excess (-2.0-3.0) mmol/L ABG Hemoglobin (11.7-17.4) g/dL ABG Carboxyhemoglobin (0.5-1.5) % POC ABG HHb (Measured) (0-5) % ABG Methemoglobin (0.0-3.0) % ABG O2 Capacity (16-24) mL/dl Hgb O2 Saturation (95.0-98.0) % FiO2 % Sodium (132-148) mmol/L Potassium (3.6-5.0) mmol/L Chloride (98-107) mmol/L Carbon Dioxide (21-33) mmol/L Anion Gap (10-20) BUN (7-21) mg/dL Creatinine (0.8-1.5) mg/dl Est GFR ( Amer) Est GFR (Non-Af Amer) Random Glucose (70-110) mg/dL Calcium (8.4-10.5) mg/dL Phosphorus (2.5-4.5) mg/dL Magnesium (1.7-2.2) mg/dL Total Bilirubin (0.2-1.3) mg/dL AST (17-59) U/L ALT (7-56) U/L Alkaline Phosphatase (38-126) U/L Total Protein (5.8-8.3) g/dL Albumin (3.0-4.8) g/dL Globulin gm/dL Albumin/Globulin Ratio (1.1-1.8) Total T3 0.65 L (0.97-1.69) ng/mL Laboratory Results - last 24 hr 09/26/18 09/27/18 09/27/18 10:00 05:40 06:10 WBC 13.4 H D RBC 4.51 Hgb 13.4 L Hct 41.6 L MCV 92.2 MCH 29.7 MCHC 32.2 RDW 12.1 Plt Count 85 L MPV 11.0 Gran % 95.3 H Lymph % (Auto) 1.9 L [place] % (Auto) 2.8 Eos % (Auto) 0.0 L Baso % (Auto) 0.0 Gran # 12.76 H Lymph # (Auto) 0.3 L [place] # (Auto) 0.4 Eos # (Auto) 0.0 Baso # (Auto) 0.00 Neutrophils % (Manual) 92 H Lymphocytes % (Manual) 3 L Atypical Lymphs % 3 H Monocytes % (Manual) 2 Platelet Evaluation Normal pCO2 41 pO2 83.0 HCO3 30.5 H ABG pH 7.48 H ABG Total CO2 31.8 H ABG O2 Saturation 98.2 H ABG O2 Content 17.8 ABG Base Excess 6.4 H ABG Hemoglobin 13.3 ABG Carboxyhemoglobin 2.1 H POC ABG HHb (Measured) 1.7 ABG Methemoglobin 1.1 ABG O2 Capacity 18.1 Hgb O2 Saturation 95.1 FiO2 32.0 Sodium Potassium Chloride Carbon Dioxide Anion Gap BUN Creatinine Est GFR ( Amer) Est GFR (Non-Af Amer) Random Glucose Calcium Phosphorus Magnesium Total Bilirubin AST ALT Alkaline Phosphatase Total Protein Albumin Globulin Albumin/Globulin Ratio Total T3 0.65 L 09/27/18 06:10 WBC RBC Hgb Hct MCV MCH MCHC RDW Plt Count MPV Gran % Lymph % (Auto) [place] % (Auto) Eos % (Auto) Baso % (Auto) Gran # Lymph # (Auto) [place] # (Auto) Eos # (Auto) Baso # (Auto) Neutrophils % (Manual) Lymphocytes % (Manual) Atypical Lymphs % Monocytes % (Manual) Platelet Evaluation pCO2 pO2 HCO3 ABG pH ABG Total CO2 ABG O2 Saturation ABG O2 Content ABG Base Excess ABG Hemoglobin ABG Carboxyhemoglobin POC ABG HHb (Measured) ABG Methemoglobin ABG O2 Capacity Hgb O2 Saturation FiO2 Sodium 141 Potassium 4.0 Chloride 107 Carbon Dioxide 32 Anion Gap 6 L BUN 38 H Creatinine 0.8 Est GFR ( Amer) > 60 Est GFR (Non-Af Amer) > 60 Random Glucose 121 H Calcium 7.8 L Phosphorus 4.0 Magnesium 2.4 H Total Bilirubin 0.8 AST 39 ALT 56 Alkaline Phosphatase 50 Total Protein 5.4 L Albumin 2.9 L Globulin 2.5 Albumin/Globulin Ratio 1.2 Total T3 Critical Care Progress Note - Nutrition Nutrition: Nutrition Category Date Time Status NPO Diet [DIET] Diets 09/22/18 Lunch Ordered Assessment/Plan - Assessment and Plan (Free Text) Assessment: 73 y/o male with PMH of COPD, asthma admitted to ICU for management of asthma exacerbation complicated with allergic reaction likely due to zithromax administration. He wass exntubated yesterday, doing well, no respiratory distress. Plan: Neuro: -AAOx3 -maintain normothermia CVS: -h/o HTN resume norvasc, losartan -Maintain MAP>65 Resp: -s/p extubation in the setting of respiratory failure. now in NAD, no wheezes -AB.48/41/83/30.5 -taper solu-medrol to 40mg q8h -continue budesonide, duoneb -CXR: no acute infiltrate -LE doppler negative for DVT -maintain O2 sat >90% -continue oral hygiene -COPD exacerbation with possible allergic reaction to zithromax -pulmonology following, Dr Coughlin Renal: -resolved AMPARO -BUN/Cr 38/0.8 -I&O 1230/3700 in last 24 hr -maintain euvolemia -avoid nephrotoxic drugs -Nephro (Dr Vegas) is following ID: -leukocytosis improving -d/c antibiotics -MRSA and blood cx negative -ID following GI: -transaminitis AST/ALT 60/44 -continue pepcid -advanced diet to HHD MSK: -h/o gouty arthritis -no active disease -hold colchicine, allopurinol Prophylaxis: -GI ppx: Pepcid -DVT ppx: heparin 5000U SQ Dispo: Patient is hemodynamically stable, afebrile, in no respiratory distress, clinically stable for transfer to [facility] Case reviewed and plan discussed with Dr. Rojas <Shen Rojas - Last Filed: 09/27/18 13:39> CCU Objective - Vital Signs / Intake & Output Vital Signs (Last 4 hours): Vital Signs Temp Pulse Resp BP Pulse Ox 09/27/18 12:00 97.9 F 151/80 H 09/27/18 11:59 81 18 100 09/27/18 11:00 73 21 149/75 98 09/27/18 10:00 76 21 152/76 H 94 L 09/27/18 09:46 163/83 H 09/27/18 09:45 72 22 100 Intake and Output (Last 8hrs): Intake & Output 09/26/18 09/27/18 09/27/18 22:59 06:59 14:59 Intake Total 1020 210 Output Total 2500 1200 Balance -1480 -990 Weight 152 lb Intake: IV 920 60 IVF 60 IVPB 200 labetalol 720 propofol 0 Oral 0 150 Tube Feeding 100 Output: Urine 2500 1200 Urethral ([place]) 2500 1200 Other: # Bowel Movements 0 - Medications Active Medications: Active Medications Generic Name Dose Route Start Last Admin Trade Name Freq PRN Reason Stop Dose Admin Acetylcysteine 3 ml 09/25/18 06:05 09/26/18 17:48 Acetylcysteine 20% PO 3 ml TID BLANK Administration Albuterol/Ipratropium 3 ml 09/23/18 08:15 09/27/18 07:37 Duoneb 3 Mg/0.5 Mg (3 Ml) Ud IH 3 ml Q6H BLANK Administration Allopurinol 300 mg 09/20/18 11:00 09/20/18 12:23 Zyloprim PO 300 mg DAILY BLANK Administration Amlodipine Besylate 5 mg 09/26/18 10:00 09/27/18 09:00 Norvasc NG 5 mg DAILY BLANK Administration Arformoterol Tartrate 15 mcg 09/20/18 20:00 09/25/18 08:03 Brovana IH 15 mcg [id number] BLANK Administration Artificial Tears 0.3 ml 09/27/18 09:28 09/27/18 09:45 Refresh Opth Soln OU 1 drop Q6 PRN Administration Dry eyes Budesonide 1 mg 09/20/18 20:00 09/27/18 07:37 Pulmicort Respules IH 1 mg [id number] BLANK Administration Ergocalciferol 1 cap 09/25/18 13:45 09/25/18 13:50 Drisdol 50,000 Intl Units Cap PO 1 cap Q7D BLANK Administration Famotidine 20 mg 09/28/18 10:00 Pepcid PO DAILY BLANK Heparin Sodium (Porcine) 5,000 units 09/22/18 09:15 09/27/18 05:16 Heparin SC 5,000 units Q8 BLANK Administration Protocol Labetalol HCl 600 mg/ Sodium 600 mls @ 60 mls/hr 09/26/18 03:05 09/26/18 16:03 Chloride IV 1 mg/min .Q10H PRN 60 mls/hr TITRATE PER MD ORDER Administration Protocol 1 MG/MIN Ipratropium [place] 0.5 mg 09/20/18 13:58 09/26/18 11:40 Atrovent IH 0.5 mg [id number] PRN Administration Shortness of Breath Levalbuterol HCl 0.63 mg 09/21/18 05:30 09/26/18 11:40 Xopenex IH 0.63 mg Q2H PRN Administration sob/wheezing Losartan Potassium 50 mg 09/20/18 10:45 09/20/18 12:21 Cozaar PO 50 mg DAILY BLANK Administration Losartan Potassium 100 mg 09/28/18 10:00 Cozaar PO DAILY BLANK Methylprednisolone 40 mg 09/27/18 11:00 Solu-Medrol IVP Q8 BLANK Montelukast Sodium 10 mg 09/20/18 22:15 09/26/18 21:11 Singulair PO 10 mg HS BLANK Administration - Patient Studies Lab Studies: Lab Studies 09/27/18 09/27/18 09/27/18 Range/Units 06:10 06:10 05:40 WBC 13.4 H D (4.5-11.0) 10^3/uL RBC 4.51 (3.5-6.1) 10^6/uL Hgb 13.4 L (14.0-18.0) g/dL Hct 41.6 L (42.0-52.0) % MCV 92.2 (80.0-105.0) fl MCH 29.7 (25.0-35.0) pg MCHC 32.2 (31.0-37.0) g/dl RDW 12.1 (11.5-14.5) % Plt Count 85 L (120.0-450.0) 10^3/uL MPV 11.0 (7.0-11.0) fl Gran % 95.3 H (50.0-68.0) % Lymph % (Auto) 1.9 L (22.0-35.0) % [place] % (Auto) 2.8 (1.0-6.0) % Eos % (Auto) 0.0 L (1.5-5.0) % Baso % (Auto) 0.0 (0.0-3.0) % Gran # 12.76 H (1.4-6.5) Lymph # (Auto) 0.3 L (1.2-3.4) [place] # (Auto) 0.4 (0.1-0.6) Eos # (Auto) 0.0 (0.0-0.7) Baso # (Auto) 0.00 (0.0-2.0) K/mm3 Neutrophils % (Manual) 92 H (50.0-70.0) % Lymphocytes % (Manual) 3 L (22.0-35.0) % Atypical Lymphs % 3 H (0.0-0.0) % Monocytes % (Manual) 2 (1.0-6.0) % Platelet Evaluation Normal (NORMAL) pCO2 41 (35-45) mm/Hg pO2 83.0 (80-100) mm/Hg HCO3 30.5 H (21-28) mmol/L ABG pH 7.48 H (7.35-7.45) ABG Total CO2 31.8 H (22-28) mmol.L ABG O2 Saturation 98.2 H (95-98) % ABG O2 Content 17.8 (15-23) ML/dl ABG Base Excess 6.4 H (-2.0-3.0) mmol/L ABG Hemoglobin 13.3 (11.7-17.4) g/dL ABG Carboxyhemoglobin 2.1 H (0.5-1.5) % POC ABG HHb (Measured) 1.7 (0-5) % ABG Methemoglobin 1.1 (0.0-3.0) % ABG O2 Capacity 18.1 (16-24) mL/dl Hgb O2 Saturation 95.1 (95.0-98.0) % FiO2 32.0 % Sodium 141 (132-148) mmol/L Potassium 4.0 (3.6-5.0) mmol/L Chloride 107 (98-107) mmol/L Carbon Dioxide 32 (21-33) mmol/L Anion Gap 6 L (10-20) BUN 38 H (7-21) mg/dL Creatinine 0.8 (0.8-1.5) mg/dl Est GFR ( Amer) > 60 Est GFR (Non-Af Amer) > 60 Random Glucose 121 H (70-110) mg/dL Calcium 7.8 L (8.4-10.5) mg/dL Phosphorus 4.0 (2.5-4.5) mg/dL Magnesium 2.4 H (1.7-2.2) mg/dL Total Bilirubin 0.8 (0.2-1.3) mg/dL AST 39 (17-59) U/L ALT 56 (7-56) U/L Alkaline Phosphatase 50 (38-126) U/L Total Protein 5.4 L (5.8-8.3) g/dL Albumin 2.9 L (3.0-4.8) g/dL Globulin 2.5 gm/dL Albumin/Globulin Ratio 1.2 (1.1-1.8) Laboratory Results - last 24 hr 09/27/18 09/27/18 09/27/18 05:40 06:10 06:10 WBC 13.4 H D RBC 4.51 Hgb 13.4 L Hct 41.6 L MCV 92.2 MCH 29.7 MCHC 32.2 RDW 12.1 Plt Count 85 L MPV 11.0 Gran % 95.3 H Lymph % (Auto) 1.9 L [place] % (Auto) 2.8 Eos % (Auto) 0.0 L Baso % (Auto) 0.0 Gran # 12.76 H Lymph # (Auto) 0.3 L [place] # (Auto) 0.4 Eos # (Auto) 0.0 Baso # (Auto) 0.00 Neutrophils % (Manual) 92 H Lymphocytes % (Manual) 3 L Atypical Lymphs % 3 H Monocytes % (Manual) 2 Platelet Evaluation Normal pCO2 41 pO2 83.0 HCO3 30.5 H ABG pH 7.48 H ABG Total CO2 31.8 H ABG O2 Saturation 98.2 H ABG O2 Content 17.8 ABG Base Excess 6.4 H ABG Hemoglobin 13.3 ABG Carboxyhemoglobin 2.1 H POC ABG HHb (Measured) 1.7 ABG Methemoglobin 1.1 ABG O2 Capacity 18.1 Hgb O2 Saturation 95.1 FiO2 32.0 Sodium 141 Potassium 4.0 Chloride 107 Carbon Dioxide 32 Anion Gap 6 L BUN 38 H Creatinine 0.8 Est GFR ( Amer) > 60 Est GFR (Non-Af Amer) > 60 Random Glucose 121 H Calcium 7.8 L Phosphorus 4.0 Magnesium 2.4 H Total Bilirubin 0.8 AST 39 ALT 56 Alkaline Phosphatase 50 Total Protein 5.4 L Albumin 2.9 L Globulin 2.5 Albumin/Globulin Ratio 1.2 Critical Care Progress Note - Nutrition Nutrition: Nutrition Category Date Time Status Heart Healthy Diet [DIET] Diets 09/27/18 Lunch Active Assessment/Plan - Assessment and Plan (Free Text) Plan: Patient seen and examined on rounds, with resident, agree with ntoe with following additions/exceptions: Patient is 73yo male with PMHx of COPD, asthma, presented with Allergic reaction to azthromax to MICU, respiratory failure, intubated, extubated yesterday. Currently AAOX3, nAD, comfortable doing well, afebrile, BP stable, sat 99% on 2LNC Labs, imaging,shyam ramirez reviewed Respiratory failure, resolved, extubated Allerigc/Anaphylactic reaction AMPARO, resolved Asthma/COPD Recommend: - supp o2 as needed, duonebs, IS - Steroids IV taper - Pulmicort - DC NGT - speech swallow eval - BP control - FS control - Allopurinol - GI ppx - DVT ppx - Stable, transfer to telemetry
--- NOTE | 2018-09-27 08:51 | PN ---
DATE: 09/25/2018 SUBJECTIVE: The patient is a 73-year-old male. The patient was seen and examined at the bedside on 09/25/2018, still intubated. Does not look like in acute distress. He is not able to give review of systems. Looks like no fever. No chills. PHYSICAL EXAMINATION VITAL SIGNS: Temperature 98.9, pulse 94, respiratory rate 26, blood pressure 120/80 , pulse oximetry 94. HEENT: Head is normocephalic, atraumatic. Eyes; closed. Nose patent. Mucous membranes moist. NECK: Supple. No carotid bruit. No JVD or thyromegaly. CHEST: Bilaterally symmetrical. HEART: S1 and S2 positive. LUNGS: Poor air entry. ABDOMEN: Soft. Bowel sounds positive. No organomegaly. EXTREMITIES: No edema. No cyanosis. NEUROLOGICAL: The patient is intubated and sedated. Cannot get review of systems, cannot get complete physical examination. MEDICATIONS: Acetylcysteine, DuoNeb, allopurinol, Brovana, Pulmicort, vitamin D, Pepcid, heparin, propofol, fentanyl citrate, midazolam, Xopenex, Cozaar, Solu-Medrol, and Singulair. LABORATORY DATA: White blood cells 13.2, hemoglobin 12.9, hematocrit 41.9, and platelets 119. Sodium 149, potassium 5, BUN 46, creatinine 1, glucose 171. ASSESSMENT AND PLAN: Mr. Jeffry Denson is a 73-year-old male with leukocytosis, anemia, leukopenia, hypernatremia, hyperchloremia, renal insufficiency, diabetes mellitus, has acute kidney injury likely hemodynamic, and prerenal state due to diuresis, acute tubular necrosis improved with IV fluid. Electrolytes imbalance, respiratory and metabolic acidosis, [id number] hypercapnic respiratory failure with chronic obstructive pulmonary disease, history of asthma exacerbation, vitamin D deficiency, no acute need of replacement therapy as per retail sales consultant. The patient getting feeding with Dobhoff NG tube and getting water also from there. Getting antibiotics. Seen by Dr. Satish Bautista, Dr. Bear, and Dr. Coughlin. History of asthma, chronic obstructive pulmonary disease, status asthmaticus, complicated with allergic reaction likely due to azithromycin. This patient is intubated and sedated due to hypercapnic respiratory failure with mixed type acidosis that is improving. Hold diltiazem. Continue Solu-Medrol. Leukocytosis is improving. Continue doxycycline and meropenem. Methicillin-resistant Staphylococcus aureus negative. Tube feeding Jevity diet. Gouty arthritis, holding colchicine and allopurinol. Acute tubular necrosis is stable. Deep venous thrombosis prophylaxis and gastrointestinal prophylaxis. Continue Pepcid. Getting heparin subcutaneous. Monitoring the patient in the unit. Mary Roper MD MTDD
--- NOTE | 2018-09-27 08:51 | PN ---
DATE: 09/24/2018 SUBJECTIVE: The patient is a 73-year-old male. The patient was seen and examined at the bedside on 09/24/2018, still intubated. He is not able to give review of systems. No fever. No chills. No hematuria. No hematochezia. No swelling of the legs. No chest pain. No palpitation. PHYSICAL EXAMINATION VITAL SIGNS: Temperature 98, heart rate 89, respiratory rate 17, blood pressure 140/70, and pulse oximetry 97% on ventilation with 35% oxygen. HEENT: Head; normocephalic, atraumatic. Eyes closed. Nose patent. NECK: Supple. The patient is intubated. No secretions in ET tube. HEART: S1,S2 positive. LUNGS: Have few scattered rhonchi and few wheezing. ABDOMEN: Soft and nontender. No organomegaly. EXTREMITIES: No edema. No cyanosis. NEUROLOGIC: The patient is intubated and sedated, cannot do neurological examination. LABORATORY DATA: Hemoglobin 12.6, hematocrit 40.3, white blood cells 7.5, platelets 133. Sodium 150, potassium 4.54, BUN 40, creatinine 1.1. AST 35 and ALT 45. ASSESSMENT AND PLAN: a 73-year-old male who has respiratory failure, on ventilator secondary to severe obstructive pulmonary disease, has sleep apnea syndrome, gouty arthritis, hypertension, multiple drug allergies. I reviewed Dr. Coughlin's note. Discussion done with nursing staff and clinical auditor. Plan is to continue present treatment. antibiotics, steroids and inhaled bronchodilators. Gastric prophylaxis and deep venous thrombosis prophylaxis. Dr. Coughlin is on the case, trying to attempting to weaning of the sedation down and see if can wean off the ventilator. Gastrointestinal and genitourinary prophylaxis. Repeat labs. We will follow up. Mary Roper MD MTDD
--- NOTE | 2018-09-27 08:52 | PN ---
DATE: 09/26/2018 The patient was seen and examined at the bedside on 09/26/2018. SUBJECTIVE: The patient is extubated this morning, still sleepy, but arousable. Daughter is sitting at the bedside. Length of time discussion done with the daughter and all questions answered. The patient known to have fever. No nausea or vomiting. No hematuria or hematochezia. No swelling of the leg. No chest pain. No palpitation. PHYSICAL EXAMINATION: VITAL SIGNS: Temperature 98, heart rate 75, respiratory rate 20, blood pressure 150/80, and pulse oximetry 93% on nasal cannula. HEENT: Head; normocephalic and atraumatic. Eyes; PERRLA. Extraocular muscles are intact. Conjunctivae clear. Nose patent. Mucous membranes moist. NECK: Supple. No carotid bruits. No JVD. No thyromegaly. CHEST: Bilaterally symmetrical. HEART: S1 and S2 positive. LUNGS: Clear to auscultation. ABDOMEN: Soft. Bowel sounds present. No organomegaly. EXTREMITIES: No edema. No cyanosis. NEUROLOGIC: The patient is sleepy, arousable. Moving all four extremities. Follow simple orders. MEDICATIONS: Mucomyst, Atrovent, Brovana, Cozaar, heparin, Norvasc, Pulmicort, Singulair, Solu-Medrol, Xopenex, and allopurinol. LABORATORY DATA: Hemoglobin 13.6, hematocrit 42.6, white blood cells 17.2, and platelets of 102. Sodium 142, potassium 4.3, BUN 50, and creatinine 1.3. AST 39 and ALT 63. Albumin 2.9. ASSESSMENT AND PLAN: Mr. 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 THE PATIENT IS ALLERGIC WITH MANY ANTIBIOTICS. Length of time discussion done with the patient's daughter. Getting high dose of steroids. Because of risk of reintubation, sleep apnea precautions, may place on bilevel positive airway pressure tonight while sleeping. on 35% of oxygen. Gastric and deep venous thrombosis prophylaxes. Reviewed Dr. Coughlin's notes. We will follow up. Mary Roper MD MTDKelli
[2018-09-27] MEDS ORDERED: Lubricant Eye Drops UD OU PRN (09:28)
--- NOTE | 2018-09-27 10:10 | CP.PCM.PN ---
<Umesh Lin - Last Filed: 09/27/18 13:37> Subjective - Date & Time of Evaluation Date of Evaluation: 09/27/18 Time of Evaluation: 10:07 - Subjective Subjective: ID consult note for Dr. Galarza/Dr. Bear service - Herbert Lin PGY3 Patient seen and examined at bedside this morning. No acute overnight events or new complaints were reported. Talking in full sentences and reports to be hungry. Presently on O2 via nasal canula and reports no chest pain, palpitations or SOB. Objective - Vital Signs/Intake and Output Vital Signs (last 24 hours): Temp Pulse Resp BP Pulse Ox 98.2 F 74 17 160/84 H 100 09/27/18 04:00 09/27/18 09:00 09/27/18 07:20 09/27/18 09:00 09/27/18 07:20 Intake and Output: 09/27/18 09/27/18 06:59 18:59 Intake Total 210 Output Total 1200 Balance -990 - Medications Medications: Current Medications Acetylcysteine (Acetylcysteine 20%) 3 ml PO TID [facility] Last Admin: 09/26/18 17:48 Dose: 3 ml Albuterol/Ipratropium (Duoneb 3 Mg/0.5 Mg (3 Ml) Ud) 3 ml IH Q6H [facility] Last Admin: 09/27/18 07:37 Dose: 3 ml Allopurinol (Zyloprim) 300 mg PO DAILY [facility] Last Admin: 09/20/18 12:23 Dose: 300 mg Amlodipine Besylate (Norvasc) 5 mg NG DAILY [facility] Last Admin: 09/27/18 09:00 Dose: 5 mg Arformoterol Tartrate (Brovana) 15 mcg IH [id number] [facility] Last Admin: 09/25/18 08:03 Dose: 15 mcg Artificial Tears (Refresh Opth Soln) 0.3 ml OU Q6 PRN PRN Reason: Dry eyes Last Admin: 09/27/18 09:45 Dose: 1 drop Budesonide (Pulmicort Respules) 1 mg IH [id number] [facility] Last Admin: 09/27/18 07:37 Dose: 1 mg Ergocalciferol (Drisdol 50,000 Intl Units Cap) 1 cap PO Q7D [facility] Last Admin: 09/25/18 13:50 Dose: 1 cap Famotidine (Pepcid) 20 mg IVP DAILY [facility] Last Admin: 09/27/18 09:00 Dose: 20 mg Heparin Sodium (Porcine) (Heparin) 5,000 units SC Q8 [facility]; Protocol Last Admin: 09/27/18 05:16 Dose: 5,000 units Labetalol HCl 600 mg/ Sodium (Chloride) 600 mls @ 60 mls/hr IV .Q10H PRN; Protocol PRN Reason: TITRATE PER MD ORDER Last Admin: 09/26/18 16:03 Dose: 1 mg/min, 60 mls/hr Ipratropium [place] (Atrovent) 0.5 mg IH [id number] PRN PRN Reason: Shortness of Breath Last Admin: 09/26/18 11:40 Dose: 0.5 mg Levalbuterol HCl (Xopenex) 0.63 mg IH Q2H PRN PRN Reason: sob/wheezing Last Admin: 09/26/18 11:40 Dose: 0.63 mg Losartan Potassium (Cozaar) 50 mg PO DAILY [facility] Last Admin: 09/20/18 12:21 Dose: 50 mg Losartan Potassium (Cozaar) 50 mg NG DAILY [facility] Last Admin: 09/27/18 09:00 Dose: 50 mg Methylprednisolone (Solu-Medrol) 60 mg IVP Q8 [facility] Last Admin: 09/27/18 05:15 Dose: 60 mg Montelukast Sodium (Singulair) 10 mg PO HS [facility] Last Admin: 09/26/18 21:11 Dose: 10 mg - Labs Labs: 09/27/18 06:10 09/27/18 06:10 - Constitutional Appears: No Acute Distress - Head Exam Head Exam: ATRAUMATIC, NORMAL INSPECTION, NORMOCEPHALIC - Eye Exam Eye Exam: EOMI, PERRL - ENT Exam ENT Exam: Mucous Membranes Moist - Respiratory Exam Respiratory Exam: Clear to Ausculation Bilateral. absent: Rales, Rhonchi, Wheezes - Cardiovascular Exam Cardiovascular Exam: RRR, +S1, +S2. absent: Clicks, Gallop, Rubs - GI/Abdominal Exam GI & Abdominal Exam: Soft, Normal Bowel Sounds. absent: Distended, Firm, Guarding, Rigid, Tenderness, Rebound - Extremities Exam Extremities Exam: Normal Inspection. absent: Pedal Edema - Neurological Exam Neurological Exam: Alert, Awake, CN II-XII Intact, Oriented x3 - Psychiatric Exam Psychiatric exam: Normal Affect, Normal Mood - Skin Skin Exam: Dry, Intact, Normal Color, Warm Assessment and Plan - Assessment and Plan (Free Text) Plan: 73yo male with history of steroid-dependent COPD/asthma, hypertension and gout presents with shortness of breath secondary to COPD/asthma exacerbation complicated by allergic drug reaction to azithromycin 1. resolved acute hypoxemic respiratory failure secondary to COPD/asthma exacerbation 2. Allergic drug reaction to azithromycin 3. SIRS without clear infectious etiology 4. Hx of gout -Patient is afebrile with leukocytosis likely secondary to steroid administ ration -Completed course of doxycyline for COPD exacerbation -Blood cultures negative -Rapid flu negative -CXR revealed no active disease -Procalcitonin negative -continue present management as per ICU/medicine teams Patient seen and case discussed/reviewed with attending, Dr. Galarza <Deejay Galarza - Last Filed: 09/27/18 22:02> Objective - Vital Signs/Intake and Output Vital Signs (last 24 hours): Temp Pulse Resp BP Pulse Ox 97.5 F L 85 22 140/75 94 L 09/27/18 16:00 09/27/18 18:00 09/27/18 18:00 09/27/18 18:00 09/27/18 18:00 Intake and Output: 09/27/18 09/28/18 18:59 06:59 Intake Total 320 Output Total 875 Balance -555 - Medications Medications: Current Medications Acetylcysteine (Acetylcysteine 20%) 3 ml PO TID [facility] Last Admin: 09/26/18 17:48 Dose: 3 ml Albuterol/Ipratropium (Duoneb 3 Mg/0.5 Mg (3 Ml) Ud) 3 ml IH Q6H [facility] Last Admin: 09/27/18 19:43 Dose: 3 ml Allopurinol (Zyloprim) 300 mg PO DAILY [facility] Last Admin: 09/20/18 12:23 Dose: 300 mg Amlodipine Besylate (Norvasc) 5 mg NG DAILY [facility] Last Admin: 09/27/18 09:00 Dose: 5 mg Arformoterol Tartrate (Brovana) 15 mcg IH [id number] [facility] Last Admin: 09/25/18 08:03 Dose: 15 mcg Artificial Tears (Refresh Opth Soln) 0.3 ml OU Q6 PRN PRN Reason: Dry eyes Last Admin: 09/27/18 09:45 Dose: 1 drop Budesonide (Pulmicort Respules) 1 mg IH [id number] BLANK Last Admin: 09/27/18 19:43 Dose: 1 mg Ergocalciferol (Drisdol 50,000 Intl Units Cap) 1 cap PO Q7D [facility] Last Admin: 09/25/18 13:50 Dose: 1 cap Famotidine (Pepcid) 20 mg PO DAILY [facility] Heparin Sodium (Porcine) (Heparin) 5,000 units SC Q8 [facility]; Protocol Last Admin: 09/27/18 13:51 Dose: 5,000 units Labetalol HCl 600 mg/ Sodium (Chloride) 600 mls @ 60 mls/hr IV .Q10H PRN; Protocol PRN Reason: TITRATE PER MD ORDER Last Admin: 09/26/18 16:03 Dose: 1 mg/min, 60 mls/hr Ipratropium [place] (Atrovent) 0.5 mg IH [id number] PRN PRN Reason: Shortness of Breath Last Admin: 09/26/18 11:40 Dose: 0.5 mg Levalbuterol HCl (Xopenex) 0.63 mg IH Q2H PRN PRN Reason: sob/wheezing Last Admin: 09/26/18 11:40 Dose: 0.63 mg Losartan Potassium (Cozaar) 50 mg PO DAILY [facility] Last Admin: 09/20/18 12:21 Dose: 50 mg Losartan Potassium (Cozaar) 100 mg PO DAILY [facility] Methylprednisolone (Solu-Medrol) 40 mg IVP Q8 [facility] Last Admin: 09/27/18 13:51 Dose: 40 mg Montelukast Sodium (Singulair) 10 mg PO HS [facility] Last Admin: 09/26/18 21:11 Dose: 10 mg - Labs Labs: 09/27/18 06:10 09/27/18 06:10 Assessment and Plan - Assessment and Plan (Free Text) Plan: Infectious diseases Attending Physician Attestation Patient seen and examined, discussed with senior medical transcriptionist. I have reviewed the patient's history of present illness, past medical, social, personal and family histories, pertinent physical exam findings, course so far in this hospital admission, pertinent laboratory and imaging results. I agree with the above findings, assessment and plan. In addition, will continue to monitor off antibiotics - patient is S/P treatment for acute COPD exacerbation.
--- NOTE | 2018-09-27 11:35 | CP.PCM.PN ---
Subjective - Date & Time of Evaluation Date of Evaluation: 09/27/18 Time of Evaluation: 11:34 - Subjective Subjective: Nephrology Consultation Note: Assessment: critical Acute Kidney Injury (N17.9) likely hemodynamic and pre-renal state due to diuresis, ATN: improved with IVF hyperkalemia, hypernatremia combined respi and metabolic acidosis acute on chronic hypercapnic respi failure with COPD/asthma exacerbation Vit D def Plan No acute need for renal replacement therapy at this time. AMPARO resolved Maintain hemodynamics stable. Avoid hypotension. losartan increased to 100 mg/day added norvasc 5 mg/day. Monitor Input/Output, daily weights and renal function with basic metabolic panel add vit D once on diet Dose meds/antibiotics for improved GFR. Glycemic control Further work up/management as per primary team Thanks for allowing me to participate in care of your patient. Will follow patient with you. Please call if any Qs. had d/w team Dr Ming [place] Office: [phone] Reason for consult: Acute Kidney Injury HPI: Pt is a 73 M with hx of copd/asthma presented with complaints of SOB and intubated for acute respi failure. renal consult for AMPARO. Denies OTC/herbal meds or NSAIDs No recent iodinated contrast exposure. Noted obvious episodes of low BP (80s). pt unable to provide any hx pt with AKIs in past with cr up to 1.3 which improved intermittently to 0.8-0.9 cr 1.3 at presentation ROS: noted overnight events. feels better. SOB better. no urine complaints Physical Examination: General Appearance: Comfortable, in no acute respiratory distress, better appearing. Vitals reviewed and noted as below Head; Atraumatic, normocephalic ENT: extubated EYES: Pupils are equal, round and reactive to light accommodation. Eye muscles and extraocular movement intact. Sclera is anicteric. Neck; supple no lymphadenopathy, no thyromegaly or bruit Lungs: Normal respiratory rate/effort. Breath sounds bilateral b/l improved. has few wheeze Heart: Normal rate. s1s2 normal. No rub or gallop. Extremities: no edema. No varicose veins Neurological: Patient is awake alert follow commands Skin: Warm and dry. Normal turgor. No rash. Palpitation: Normal elasticity for age Abdomen: Abdomen is soft. Bowel sounds +. There is no abdominal tenderness, no guarding/rigidity no organomegaly Psych: normal insight. normal affeac MSK: no joint tenderness or swelling. Digits and nails normal, no deformity : kidney or bladder not palpable. Labs/imaging reviewed. Past medical history, past surgical history, family history, social history, allergy reviewed and noted as below Family hx: no hx of CKD. Rest non-contributory Objective - Vital Signs/Intake and Output Vital Signs (last 24 hours): Temp Pulse Resp BP Pulse Ox 98.2 F 73 21 149/75 98 09/27/18 08:00 09/27/18 11:00 09/27/18 11:00 09/27/18 11:00 09/27/18 11:00 Intake and Output: 09/27/18 09/27/18 06:59 18:59 Intake Total 210 Output Total 1200 Balance -990 - Medications Medications: Current Medications Acetylcysteine (Acetylcysteine 20%) 3 ml PO TID [facility] Last Admin: 09/26/18 17:48 Dose: 3 ml Albuterol/Ipratropium (Duoneb 3 Mg/0.5 Mg (3 Ml) Ud) 3 ml IH Q6H [facility] Last Admin: 09/27/18 07:37 Dose: 3 ml Allopurinol (Zyloprim) 300 mg PO DAILY [facility] Last Admin: 09/20/18 12:23 Dose: 300 mg Amlodipine Besylate (Norvasc) 5 mg NG DAILY [facility] Last Admin: 09/27/18 09:00 Dose: 5 mg Arformoterol Tartrate (Brovana) 15 mcg IH [id number] [facility] Last Admin: 09/25/18 08:03 Dose: 15 mcg Artificial Tears (Refresh Opth Soln) 0.3 ml OU Q6 PRN PRN Reason: Dry eyes Last Admin: 09/27/18 09:45 Dose: 1 drop Budesonide (Pulmicort Respules) 1 mg IH [id number] [facility] Last Admin: 09/27/18 07:37 Dose: 1 mg Ergocalciferol (Drisdol 50,000 Intl Units Cap) 1 cap PO Q7D [facility] Last Admin: 09/25/18 13:50 Dose: 1 cap Famotidine (Pepcid) 20 mg IVP DAILY [facility] Last Admin: 09/27/18 09:00 Dose: 20 mg Heparin Sodium (Porcine) (Heparin) 5,000 units SC Q8 [facility]; Protocol Last Admin: 09/27/18 05:16 Dose: 5,000 units Labetalol HCl 600 mg/ Sodium (Chloride) 600 mls @ 60 mls/hr IV .Q10H PRN; Protocol PRN Reason: TITRATE PER MD ORDER Last Admin: 09/26/18 16:03 Dose: 1 mg/min, 60 mls/hr Ipratropium [place] (Atrovent) 0.5 mg IH [id number] PRN PRN Reason: Shortness of Breath Last Admin: 09/26/18 11:40 Dose: 0.5 mg Levalbuterol HCl (Xopenex) 0.63 mg IH Q2H PRN PRN Reason: sob/wheezing Last Admin: 09/26/18 11:40 Dose: 0.63 mg Losartan Potassium (Cozaar) 50 mg PO DAILY [facility] Last Admin: 09/20/18 12:21 Dose: 50 mg Losartan Potassium (Cozaar) 100 mg PO DAILY [facility] Methylprednisolone (Solu-Medrol) 40 mg IVP Q8 BL[facility] Montelukast Sodium (Singulair) 10 mg PO HS [facility] Last Admin: 09/26/18 21:11 Dose: 10 mg - Labs Labs: 09/27/18 06:10 09/27/18 06:10
[2018-09-27] MEDS: MethylPREDNISolone 40 mg Vial IVP SCH ×2 (13:51→22:50)
--- NOTE | 2018-09-28 01:11 | PN ---
DATE: 09/27/2018 PULMONARY PROGRESS NOTE REFERRING PHYSICIAN: Mary Roper MD SUBJECTIVE: He is out of bed to chair. Feels much better. Still has some cough and shortness of breath. No nausea. No vomiting. No diarrhea. Does have a leg swelling. OBJECTIVE: GENERAL: No acute distress. VITAL SIGNS: Temperature is 98, heart rate 85, respiratory rate is 22, blood pressure 140/75, pulse of 94% on nasal cannula. HEENT: Moist mucous membranes. Crowded airway. Mallampati score is 4. NECK: Supple. No JVD. LUNGS: Have prolonged expiratory phase with some wheezing. HEART: S1 and S2. ABDOMEN: Soft, nontender. No organomegaly. EXTREMITIES: Has some edema. NEUROLOGIC: Awake, alert. Follows simple command. MEDICATIONS: He is on Mucomyst inhaled twice a day, Atrovent inhaled every 6 hours, Brovana inhaled which is on hold, Cozaar 100 mg daily. Also on vitamin D one capsule every 7 days, heparin 5000 units subcu every 8 hours, labetalol, Norvasc 5 mg via nasogastric tube daily, Pepcid 20 mg daily, Pulmicort inhaled twice a day, Singulair 10 mg daily, Solu-Medrol 40 mg every 8 hours, allopurinol 300 mg daily. LABORATORY DATA: Shows hemoglobin 13.4, hematocrit 41.6, WBC 13.4, platelet count is 85. ABG shows pH of 7.48, pCO2 of 41, O2 of 83. Sodium 141, potassium 4, chloride 107, bicarbonate 32, BUN 38, creatinine 0.8, glucose 121, calcium is 7.8, magnesium 2.4. AST 39, ALT 56, alk phos is 50, albumin is 2.9. T3 total 0.65. Microbiology: Blood culture and nasal culture, there is no growth. IMPRESSION AND PLAN: Status post respiratory failure, chronic obstructive lung disease, suspected sleep apnea syndrome, severe gout, history of hypertension, steroid dependent. New allergy to Zithromax. Pulmonary point of view, much improved. Continue intravenous and inhaled bronchodilator. Continue antibiotics. Sleep apnea precaution. Encourage bilevel positive airway pressure use at night. Gastric prophylaxis. Deep venous thrombosis prophylaxis. Follow up arterial blood gas, chest x-ray, complete blood cell count and comprehensive metabolic panel in the morning. Critical care time more than 35 minutes. Thank you and we will follow with you. Morgan Coughlin MD
[2018-09-28] MEDS: Albuterol-Ipratrop 3 mg / 0.5 (3 ml) UD IH SCH ×4 (01:47→21:38)
[2018-09-28] MEDS: MethylPREDNISolone 40 mg Vial IVP SCH ×2 (05:28→21:54)
[2018-09-28 06:55] LABS: BASO # 0.01 K/mm3 (0.0-2.0); BASO % 0.1 % (0.0-3.0); GRAN % 94.6 % (50.0-68.0); HEMOGLOBIN 14.9 g/dL (14.0-18.0); LYMPH # 0.6 (1.2-3.4); LYMPH % 4.2 % (22.0-35.0); MEAN CELL VOLUME 91.6 fl (80.0-105.0); MEAN CORPUSCULAR HEMOGLOBIN 30.6 pg (25.0-35.0); MEAN CORPUSCULAR HGB CONC 33.4 g/dl (31.0-37.0); MEAN PLATELET VOLUME 11.3 fl (7.0-11.0); MONO # 0.2 (0.1-0.6); MONO % 1.1 % (1.0-6.0); RBC 4.87 10^6/uL (3.5-6.1); RED CELL DISTRIBUTION WIDTH 12.1 % (11.5-14.5); WHITE BLOOD COUNT 13.7 10^3/uL (4.5-11.0)
[2018-09-28 07:04] LABS: BLOOD UREA NITROGEN 41 mg/dL (7-21)
[2018-09-28 07:06] LABS: ALB/GLOB RATIO 1.2 (1.1-1.8); ALBUMIN 3.1 g/dL (3.0-4.8); ALT/SGPT 65 U/L (7-56); AST/SGOT 48 U/L (17-59); CALCIUM 8.2 mg/dL (8.4-10.5); GFR NON-AFRICAN AMERICAN > 60
[2018-09-28] MEDS: Budesonide 0.5 mg/2 ml Inhal Susp UD IH SCH ×2 (07:37→21:38)
--- NOTE | 2018-09-28 12:29 | CP.PCM.PN ---
Subjective - Date & Time of Evaluation Date of Evaluation: 09/28/18 Time of Evaluation: 12:28 - Subjective Subjective: Nephrology Consultation Note: Assessment: critical Acute Kidney Injury (N17.9) likely hemodynamic and pre-renal state due to diuresis, ATN: improved with IVF hyperkalemia, hypernatremia combined respi and metabolic acidosis acute on chronic hypercapnic respi failure with COPD/asthma exacerbation Vit D def Plan No acute need for renal replacement therapy at this time. AMPARO resolved Maintain hemodynamics stable. Avoid hypotension. losartan increased to 100 mg/day increased norvasc 10 mg/day. prn hydralazine Monitor Input/Output, daily weights and renal function with basic metabolic panel on vit D weekly Dose meds/antibiotics for improved GFR. Glycemic control Further work up/management as per primary team Thanks for allowing me to participate in care of your patient. Will follow patient with you. Please call if any Qs. had d/w team Dr Ming [place] Office: [phone] Reason for consult: Acute Kidney Injury HPI: Pt is a 73 M with hx of copd/asthma presented with complaints of SOB and intubated for acute respi failure. renal consult for AMPARO. Denies OTC/herbal meds or NSAIDs No recent iodinated contrast exposure. Noted obvious episodes of low BP (80s). pt unable to provide any hx pt with AKIs in past with cr up to 1.3 which improved intermittently to 0.8-0.9 cr 1.3 at presentation ROS: noted overnight events. feels better. SOB better. no urine complaints Physical Examination: General Appearance: Comfortable, in no acute respiratory distress, better appearing. Vitals reviewed and noted as below Head; Atraumatic, normocephalic ENT: extubated EYES: Pupils are equal, round and reactive to light accommodation. Eye muscles and extraocular movement intact. Sclera is anicteric. Neck; supple no lymphadenopathy, no thyromegaly or bruit Lungs: Normal respiratory rate/effort. Breath sounds bilateral b/l improved. has few wheeze Heart: Normal rate. s1s2 normal. No rub or gallop. Extremities: no edema. No varicose veins Neurological: Patient is awake alert follow commands Skin: Warm and dry. Normal turgor. No rash. Palpitation: Normal elasticity for age Abdomen: Abdomen is soft. Bowel sounds +. There is no abdominal tenderness, no guarding/rigidity no organomegaly Psych: normal insight. normal affeac MSK: no joint tenderness or swelling. Digits and nails normal, no deformity : kidney or bladder not palpable. Labs/imaging reviewed. Past medical history, past surgical history, family history, social history, allergy reviewed and noted as below Family hx: no hx of CKD. Rest non-contributory Objective - Vital Signs/Intake and Output Vital Signs (last 24 hours): Temp Pulse Resp BP Pulse Ox 97.9 F 94 H 24 159/82 H 94 L 09/28/18 08:00 09/28/18 10:59 09/28/18 10:59 09/28/18 10:59 09/28/18 10:59 Intake and Output: 09/28/18 09/28/18 06:59 18:59 Intake Total 320 Output Total 200 Balance 120 - Medications Medications: Current Medications Acetylcysteine (Acetylcysteine 20%) 3 ml PO TID [facility] Last Admin: 09/26/18 17:48 Dose: 3 ml Albuterol/Ipratropium (Duoneb 3 Mg/0.5 Mg (3 Ml) Ud) 3 ml IH Q6H [facility] Last Admin: 09/28/18 07:37 Dose: 3 ml Allopurinol (Zyloprim) 300 mg PO DAILY [facility] Last Admin: 09/20/18 12:23 Dose: 300 mg Amlodipine Besylate (Norvasc) 10 mg PO DAILY [facility] Arformoterol Tartrate (Brovana) 15 mcg IH [id number] [facility] Last Admin: 09/25/18 08:03 Dose: 15 mcg Artificial Tears (Refresh Opth Soln) 0.3 ml OU Q6 PRN PRN Reason: Dry eyes Last Admin: 09/27/18 09:45 Dose: 1 drop Budesonide (Pulmicort Respules) 1 mg IH [id number] [facility] Last Admin: 09/28/18 07:37 Dose: 1 mg Ergocalciferol (Drisdol 50,000 Intl Units Cap) 1 cap PO Q7D [facility] Last Admin: 09/25/18 13:50 Dose: 1 cap Famotidine (Pepcid) 20 mg PO DAILY [facility] Last Admin: 09/28/18 09:01 Dose: 20 mg Heparin Sodium (Porcine) (Heparin) 5,000 units SC Q8 BLANK; Protocol Last Admin: 09/28/18 05:28 Dose: 5,000 units Hydralazine HCl (Apresoline) 25 mg PO Q4 PRN PRN Reason: SYS >170 OR ALBERTO >110 Labetalol HCl 600 mg/ Sodium (Chloride) 600 mls @ 60 mls/hr IV .Q10H PRN; Protocol PRN Reason: TITRATE PER MD ORDER Last Admin: 09/26/18 16:03 Dose: 1 mg/min, 60 mls/hr Ipratropium [place] (Atrovent) 0.5 mg IH [id number] PRN PRN Reason: Shortness of Breath Last Admin: 09/26/18 11:40 Dose: 0.5 mg Levalbuterol HCl (Xopenex) 0.63 mg IH Q2H PRN PRN Reason: sob/wheezing Last Admin: 09/26/18 11:40 Dose: 0.63 mg Losartan Potassium (Cozaar) 50 mg PO DAILY [facility] Last Admin: 09/20/18 12:21 Dose: 50 mg Losartan Potassium (Cozaar) 100 mg PO DAILY [facility] Last Admin: 09/28/18 09:00 Dose: 100 mg Methylprednisolone (Solu-Medrol) 40 mg IVP Q8 [facility] Last Admin: 09/28/18 05:28 Dose: 40 mg Montelukast Sodium (Singulair) 10 mg PO HS [facility] Last Admin: 09/27/18 22:50 Dose: 10 mg - Labs Labs: 09/28/18 05:30 09/28/18 05:30
--- NOTE | 2018-09-28 13:04 | PN ---
DATE: 09/27/2018 The patient was seen and examined at the bedside on 09/27/2018. SUBJECTIVE: The patient is looking comfortable, feels much better, extubated, still having a little bit of cough and shortness of breath. No fever. No chills. No nausea or vomiting. No hematuria or hematochezia. Does have a little bit of swelling of the leg. No headaches. No dizziness. PHYSICAL EXAMINATION: VITAL SIGNS: Temperature 98.2, heart rate 80, respiratory rate 20, blood pressure 140/70, and pulse oximetry 94% on nasal cannula. HEENT: Head, normocephalic and atraumatic. Eyes, PERRLA. Extraocular muscles are intact. Conjunctivae clear. Nose patent. Mucous membranes moist. NECK: Supple. No carotid bruits. No JVD. No thyromegaly. CHEST: Bilaterally symmetrical. HEART: S1 and S2 positive. LUNGS: Clear to auscultation. ABDOMEN: Soft. Bowel sounds present. No organomegaly. EXTREMITIES: No edema. No cyanosis. NEUROLOGIC: The patient is awake, alert. Moving all four extremities. No focal deficits. MEDICATIONS: Mucomyst, Brovana, Cozaar, vitamin D, heparin, Norvasc, Pepcid, Pulmicort, Singulair, Solu-Medrol tapering dose and allopurinol. LABORATORY DATA: White blood cells 13.4, hemoglobin 13.4, hematocrit 41.6, and platelets of 85. Sodium 141, potassium 4.0, BUN 38, and creatinine 0.8. AST 39 and ALT 56. ASSESSMENT AND PLAN: Mr. 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 ALLERGIC WITH DIFFERENT MEDICATIONS, NOW NEW ALLERGY WITH AZITHROMYCIN. Continue intravenous inhaled bronchodilator and continue antibiotics and sleep apnea precautions. Encourage using bilevel positive airway pressure especially at night. Gastrointestinal and deep venous thrombosis prophylaxis and out-of-bed physical therapy. We will repeat labs. Mary Roper MD [facility] # [id number] MTDD
--- NOTE | 2018-09-28 16:27 | PN ---
DATE: 09/28/2018 SUBJECTIVE: The patient is in bed, in no acute distress, nontoxic. PHYSICAL EXAMINATION: VITAL SIGNS: Temperature is 97, blood pressure is 150/80, respiratory rate of 18. HEENT: Unremarkable. NECK: Supple. LUNGS: Have decreased breath sounds. HEART: Normal S1 and S2. ABDOMEN: soft, nontender. LABORATORY EXAMINATION: Reviewed. White count of 13,700, hemoglobin of 14. Chemistries are noted and review of orders reveals the patient to be off of antibiotics. Microbiology is reviewed. Cultures are negative. MRSA screen is negative. ASSESSMENT AND PLAN: A 73-year-old male with history of steroid-dependent chronic obstructive pulmonary disease, asthma, hypertension, gout, presenting with shortness of breath secondary to chronic obstructive pulmonary disease, asthma exacerbation complicated, had respiratory failure, intubated on a ventilator, now extubated currently and with systemic inflammatory response syndrome and history of gout, questionable allergic reaction, off of antibiotics, afebrile. The patient is at risk for developing nosocomial infections. Malvin Bear MD
--- NOTE | 2018-09-28 17:21 | PN ---
DATE: 09/28/2018 PULMONARY PROGRESS NOTE REFERRING PHYSICIAN: Mary Roper MD SUBJECTIVE: The patient is sitting up in a chair at bedside. Reports occasional cough, occasional shortness of breath. No headache, rhinitis, chest pain, abdominal pain, nausea, vomiting, diarrhea, leg pain, leg swelling reported. OBJECTIVE GENERAL: No acute distress. VITAL SIGNS: Blood pressure 159/82, pulse 92, respirations 19, oxygen saturation 94%, temperature 97.9. HEENT: Moist mucous membranes. Crowded airway. Mallampati score is 4. NECK: Supple. No JVD. LUNGS: Rhonchi bilaterally. Prolonged expiratory wheeze with a few wheezing. CARDIOVASCULAR: S1, S2 audible. ABDOMEN: Soft, nontender. No organomegaly. No distention. EXTREMITIES: +1 edema. NEUROLOGIC: Awake, alert, verbal. Follows simple commands. LABORATORY DATA: Reviewed. WBC 13.7, RBC is 4.87, hemoglobin 14.9, hematocrit 44.6, platelets 79. Sodium 143, potassium 3.8, chloride 106, carbon dioxide 34, anion gap 6, BUN 41, creatinine 0.8, GFR greater than 60, random glucose 137. Calcium 8.2, phosphorus 3.7, magnesium 2.6. Total bilirubin 0.9, AST 48, ALT 65, alkaline phosphatase 59, total protein 5.8, albumin 3.1, globulin 2.7, albumin-globulin ratio 1.2. MEDICATIONS: Reviewed. Mucomyst 3 mL three times a day, DuoNeb 3 mL inhalation every six hours, allopurinol 300 mg orally daily, Norvasc 10 mg orally daily, Brovana 15 mcg inhalation every 12 hours, artificial tears every six hours as needed, Pulmicort 1 mg inhalation every 12 hours, ergocalciferol 50,000 units 1 cap weekly, Pepcid 20 mg orally daily, heparin 5000 units subcutaneously every eight hours, hydralazine 25 mg orally every four hours as needed for systolic greater than 170, Atrovent 0.5 mg inhalation every six hours as needed, labetalol on hold, Xopenex 0.63 mg inhalation every two hours as needed, Cozaar 50 mg orally daily on hold, Cozaar 100 mg orally daily, Solu-Medrol 40 mg every eight hours, Singulair 10 mg at bedtime. IMPRESSION AND PLAN: Status post respiratory failure, chronic obstructive lung disease, suspected sleep apnea syndrome, severe gout, history of hypertension, steroid dependent, NEW ALLERGY TO ZITHROMAX. Pulmonary point of view, the patient's status has improved. Continue inhaled bronchodilators. Continue antibiotics, sleep apnea precaution. Continue to encourage bilevel positive airway pressure use at bedtime. Gastric prophylaxis, deep venous thrombosis prophylaxis. We will decrease steroids to 40 mg every 12 hours. We will add colchicine 0.6 mg every 48 hours. This patient was seen and examined with Dr. Coughlin. Discussed assessment and plan as described above. Critical care time, more than 35 minutes spent. Thank you and we will follow with you. Blake Moss APN Morgan Coughlin MD
[2018-09-29] MEDS: Albuterol-Ipratrop 3 mg / 0.5 (3 ml) UD IH SCH ×5 (02:40→21:20)
--- NOTE | 2018-09-29 04:44 | PN ---
DATE: 09/28/2018 SUBJECTIVE: The patient is a 73-year-old male. The patient was seen and examined at the bedside on 09/28/2018. Looking comfortable. Discussion done with the patient's on the phone. According to her, the patient is delirious. When I saw the patient, he was lying on the bed. Coughing, but the shortness of breath is better. No headache, dizziness, chest pain or palpitation, but he is getting episodes of confusion. PHYSICAL EXAMINATION: VITAL SIGNS: Temperature 98.2, blood pressure 150/82, respiratory rate 18, pulse 90, saturation 94%. HEENT: Head normocephalic, atraumatic. Eyes PERRLA. Extraocular muscles intact. Conjunctivae clear. Nose patent. Mucous membranes moist. NECK: Supple. No carotid bruits. No JVD or thyromegaly. CHEST: Bilaterally symmetrical. HEART: S1 and S2 positive. LUNGS: Positive wheezing bilaterally. Prolonged expiratory phase with wheezing. ABDOMEN: Soft. Bowel sounds present. No organomegaly. EXTREMITIES: No edema, no cyanosis. NEUROLOGICAL: The patient is awake, alert. Moving all four extremities. No focal deficits. LABORATORY DATA: White blood cells 13.7, hemoglobin 14.9, hematocrit 44.6, platelets 79. Sodium 143, potassium 3.8, calcium 8.2. AST 48, ALT 35. MEDICATIONS: Mucomyst, DuoNeb, allopurinol, Norvasc, Brovana, Pulmicort. ASSESSMENT AND PLAN: Mr. Jeffry Denson is a 73-year-old male, status post respiratory failure, chronic obstructive lung disease, suspected sleep apnea syndrome, severe gouty arthritis. Hands have deformity at the joints due to severe gouty arthritis. Hypertension, steroid dependency, allergic with azithromycin and other antibiotics. Continue inhaled bronchodilators. Continue antibiotics. Sleep apnea precautions. Continue to encourage bilevel positive airway pressure, use at bedside. Gastric and deep venous thrombosis prophylaxis. We will decrease steroids to 40 mg every 12 hours to avoid steroid psychosis that what the patient had last time. Gastrointestinal and deep venous thrombosis prophylaxis. Repeat labs. We will follow up. Out of bed. Physical therapy. Mary Roper MD
[2018-09-29 07:04] LABS: BASO # 0.01 K/mm3 (0.0-2.0); BASO % 0.1 % (0.0-3.0); GRAN # 13.26 (1.4-6.5); GRAN % 94.5 % (50.0-68.0); HEMOGLOBIN 15.4 g/dL (14.0-18.0); LYMPH # 0.4 (1.2-3.4); LYMPH % 2.9 % (22.0-35.0); MEAN CELL VOLUME 93.1 fl (80.0-105.0); MEAN CORPUSCULAR HEMOGLOBIN 30.4 pg (25.0-35.0); MEAN CORPUSCULAR HGB CONC 32.6 g/dl (31.0-37.0); MEAN PLATELET VOLUME 11.7 fl (7.0-11.0); MONO # 0.4 (0.1-0.6); MONO % 2.5 % (1.0-6.0); RBC 5.07 10^6/uL (3.5-6.1); RED CELL DISTRIBUTION WIDTH 12.2 % (11.5-14.5)
[2018-09-29 07:15] LABS: ALB/GLOB RATIO 1.3 (1.1-1.8); ALBUMIN 3.4 g/dL (3.0-4.8); ALT/SGPT 84 U/L (7-56); AST/SGOT 75 U/L (17-59); BLOOD UREA NITROGEN 33 mg/dL (7-21); CALCIUM 8.5 mg/dL (8.4-10.5); GFR NON-AFRICAN AMERICAN > 60
[2018-09-29] MEDS: Ipratropium 0.02% Inhal Soln (0.5 mg/2.5 ml) UD IH PRN (07:29)
[2018-09-29] MEDS: Budesonide 0.5 mg/2 ml Inhal Susp UD IH SCH ×2 (07:30→21:20)
[2018-09-29] MEDS: MethylPREDNISolone 40 mg Vial IVP SCH ×2 (09:32→22:25)
[2018-09-29] MEDS: Acetylcysteine 20% Inhal Soln (4ml) PO SCH ×4 (09:39→17:46)
--- NOTE | 2018-09-29 13:53 | CP.PCM.PN ---
<Umseh Lin - Last Filed: 09/29/18 13:49> Subjective - Date & Time of Evaluation Date of Evaluation: 09/29/18 Time of Evaluation: 13:50 - Subjective Subjective: ID progress note for Dr. Galarza/Dr. Bear service - Herbert Lin PGY3 Patient seen and examined at bedside this morning. No acute overnight events or new complaints were reported. Denies chest pain, palpitations or SOB. Objective - Vital Signs/Intake and Output Vital Signs (last 24 hours): Temp Pulse Resp BP Pulse Ox 98.3 F 82 12 151/87 H 94 L 09/29/18 06:00 09/29/18 09:26 09/29/18 12:00 09/29/18 12:00 09/29/18 12:00 Intake and Output: 09/29/18 09/29/18 06:59 18:59 Intake Total 240 Balance 240 - Medications Medications: Current Medications Acetylcysteine (Acetylcysteine 20%) 3 ml PO TID [facility] Last Admin: 09/29/18 11:00 Dose: Not Given Albuterol/Ipratropium (Duoneb 3 Mg/0.5 Mg (3 Ml) Ud) 3 ml IH Q6H [facility] Last Admin: 09/29/18 13:06 Dose: 3 ml Allopurinol (Zyloprim) 300 mg PO DAILY [facility] Last Admin: 09/20/18 12:23 Dose: 300 mg Alprazolam (Xanax) 0.125 mg PO TID PRN; Protocol PRN Reason: Agitation Amlodipine Besylate (Norvasc) 10 mg PO DAILY [facility] Last Admin: 09/29/18 09:35 Dose: 10 mg Arformoterol Tartrate (Brovana) 15 mcg IH [id number] [facility] Last Admin: 09/25/18 08:03 Dose: 15 mcg Artificial Tears (Refresh Opth Soln) 0.3 ml OU Q6 PRN PRN Reason: Dry eyes Last Admin: 09/27/18 09:45 Dose: 1 drop Budesonide (Pulmicort Respules) 1 mg IH [id number] [facility] Last Admin: 09/29/18 07:30 Dose: 1 mg Colchicine (Colocrys) 0.6 mg PO DAILY [facility] Last Admin: 09/29/18 11:14 Dose: Not Given Ergocalciferol (Drisdol 50,000 Intl Units Cap) 1 cap PO Q7D [facility] Last Admin: 09/25/18 13:50 Dose: 1 cap Famotidine (Pepcid) 20 mg PO DAILY [facility] Last Admin: 09/29/18 11:15 Dose: Not Given Heparin Sodium (Porcine) (Heparin) 5,000 units SC Q8 BLANK; Protocol Last Admin: 09/29/18 05:06 Dose: 5,000 units Hydralazine HCl (Apresoline) 25 mg PO Q4 PRN PRN Reason: SYS >170 OR ALBERTO >110 Labetalol HCl 600 mg/ Sodium (Chloride) 600 mls @ 60 mls/hr IV .Q10H PRN; Protocol PRN Reason: TITRATE PER MD ORDER Last Admin: 09/26/18 16:03 Dose: 1 mg/min, 60 mls/hr Ipratropium [place] (Atrovent) 0.5 mg IH [id number] PRN PRN Reason: Shortness of Breath Last Admin: 09/26/18 11:40 Dose: 0.5 mg Levalbuterol HCl (Xopenex) 0.63 mg IH Q2H PRN PRN Reason: sob/wheezing Last Admin: 09/26/18 11:40 Dose: 0.63 mg Losartan Potassium (Cozaar) 100 mg PO DAILY [facility] Last Admin: 09/29/18 09:26 Dose: 50 mg Methylprednisolone (Solu-Medrol) 20 mg IVP Q12 [facility] Montelukast Sodium (Singulair) 10 mg PO HS [facility] Last Admin: 09/28/18 21:00 Dose: 10 mg - Labs Labs: 09/29/18 06:35 09/29/18 06:35 - Constitutional Appears: No Acute Distress - Head Exam Head Exam: ATRAUMATIC, NORMAL INSPECTION, NORMOCEPHALIC - Eye Exam Eye Exam: EOMI, PERRL - ENT Exam ENT Exam: Mucous Membranes Moist - Respiratory Exam Respiratory Exam: absent: Rales, Rhonchi, Wheezes - Cardiovascular Exam Cardiovascular Exam: +S1, +S2. absent: Clicks, Gallop, Rubs - GI/Abdominal Exam GI & Abdominal Exam: Soft. absent: Distended, Firm, Guarding, Rigid, Tenderness, Rebound - Neurological Exam Neurological Exam: Alert, Awake, Oriented x3 - Psychiatric Exam Psychiatric exam: Normal Affect, Normal Mood - Skin Skin Exam: Dry, Intact, Normal Color, Warm Assessment and Plan - Assessment and Plan (Free Text) Plan: 73yo male with history of steroid-dependent COPD/asthma, hypertension and gout presents with shortness of breath secondary to COPD/asthma exacerbation complicated by allergic drug reaction to azithromycin 1. resolved acute hypoxemic respiratory failure secondary to COPD/asthma exacerbation 2. Allergic drug reaction to azithromycin 3. SIRS without clear infectious etiology 4. AMPARO, resolved 5. Hx of gout -Remains afebrile -leukocytosis likely secondary to steroid administration -Completed course of doxycyline for COPD exacerbation -Blood cultures negative -Rapid flu negative -CXR revealed no active disease -Procalcitonin negative -continue present management as per medicine team Patient seen and case discussed/reviewed with attending, Dr. Galarza <Deejay Galarza - Last Filed: 09/29/18 22:56> Objective - Vital Signs/Intake and Output Vital Signs (last 24 hours): Temp Pulse Resp BP Pulse Ox 99.0 F 88 20 155/88 H 95 09/29/18 14:00 09/29/18 14:00 09/29/18 14:00 09/29/18 14:00 09/29/18 14:00 Intake and Output: 09/29/18 09/30/18 18:59 06:59 Intake Total 10 240 Output Total 200 Balance 10 40 - Medications Medications: Current Medications Acetylcysteine (Acetylcysteine 20%) 3 ml PO TID [facility] Last Admin: 09/29/18 17:46 Dose: Not Given Albuterol/Ipratropium (Duoneb 3 Mg/0.5 Mg (3 Ml) Ud) 3 ml IH Q6H [facility] Last Admin: 09/29/18 21:20 Dose: 3 ml Allopurinol (Zyloprim) 300 mg PO DAILY [facility] Last Admin: 09/20/18 12:23 Dose: 300 mg Alprazolam (Xanax) 0.125 mg PO TID PRN; Protocol PRN Reason: Agitation Amlodipine Besylate (Norvasc) 10 mg PO DAILY [facility] Last Admin: 09/29/18 09:35 Dose: 10 mg Arformoterol Tartrate (Brovana) 15 mcg IH [id number] [facility] Last Admin: 09/25/18 08:03 Dose: 15 mcg Artificial Tears (Refresh Opth Soln) 0.3 ml OU Q6 PRN PRN Reason: Dry eyes Last Admin: 09/27/18 09:45 Dose: 1 drop Budesonide (Pulmicort Respules) 1 mg IH [id number] [facility] Last Admin: 09/29/18 21:20 Dose: 1 mg Colchicine (Colocrys) 0.6 mg PO DAILY [facility] Last Admin: 09/29/18 11:14 Dose: Not Given Ergocalciferol (Drisdol 50,000 Intl Units Cap) 1 cap PO Q7D [facility] Last Admin: 09/25/18 13:50 Dose: 1 cap Famotidine (Pepcid) 20 mg PO DAILY [facility] Last Admin: 09/29/18 11:15 Dose: Not Given Heparin Sodium (Porcine) (Heparin) 5,000 units SC Q8 [facility]; Protocol Last Admin: 09/29/18 22:24 Dose: 5,000 units Hydralazine HCl (Apresoline) 25 mg PO Q4 PRN PRN Reason: SYS >170 OR ALBERTO >110 Labetalol HCl 600 mg/ Sodium (Chloride) 600 mls @ 60 mls/hr IV .Q10H PRN; Protocol PRN Reason: TITRATE PER MD ORDER Last Admin: 09/26/18 16:03 Dose: 1 mg/min, 60 mls/hr Ipratropium [place] (Atrovent) 0.5 mg IH [id number] PRN PRN Reason: Shortness of Breath Last Admin: 09/26/18 11:40 Dose: 0.5 mg Levalbuterol HCl (Xopenex) 0.63 mg IH Q2H PRN PRN Reason: sob/wheezing Last Admin: 09/26/18 11:40 Dose: 0.63 mg Losartan Potassium (Cozaar) 100 mg PO DAILY [facility] Last Admin: 09/29/18 09:26 Dose: 50 mg Methylprednisolone (Solu-Medrol) 20 mg IVP Q12 [facility] Last Admin: 09/29/18 22:25 Dose: 20 mg Montelukast Sodium (Singulair) 10 mg PO HS [facility] Last Admin: 09/29/18 22:24 Dose: 10 mg - Labs Labs: 09/29/18 06:35 09/29/18 06:35 Assessment and Plan - Assessment and Plan (Free Text) Plan: Infectious diseases Attending Physician Attestation Patient seen and examined, discussed with medical lab tech instructor. I have reviewed the patient's history of present illness, past medical, social, personal and family histories, pertinent physical exam findings, course so far in this hospital admission, pertinent laboratory and imaging results. I agree with the above findings, assessment and plan. In addition, will continue to follow clinically off antibiotics - patient is S/P treatment for acute COPD exacerbation.
--- NOTE | 2018-09-29 15:52 | CP.PCM.PN ---
Subjective - Date & Time of Evaluation Date of Evaluation: 09/29/18 Time of Evaluation: 15:51 - Subjective Subjective: Nephrology Consultation Note: Assessment: stable Acute Kidney Injury (N17.9) likely hemodynamic and pre-renal state due to diuresis, ATN: improved with IVF hyperkalemia, hypernatremia combined respi and metabolic acidosis acute on chronic hypercapnic respi failure with COPD/asthma exacerbation Vit D def Plan No acute need for renal replacement therapy at this time. AMPARO resolved Maintain hemodynamics stable. Avoid hypotension. losartan increased to 100 mg/day increased norvasc 10 mg/day. prn hydralazine Monitor Input/Output, daily weights and renal function with basic metabolic panel on vit D weekly Dose meds/antibiotics for improved GFR. Glycemic control Further work up/management as per primary team Thanks for allowing me to participate in care of your patient. Will follow patient with you. Please call if any Qs. had d/w team Dr Ming [place] Office: [phone] Reason for consult: Acute Kidney Injury HPI: Pt is a 73 M with hx of copd/asthma presented with complaints of SOB and intubated for acute respi failure. renal consult for AMPARO. Denies OTC/herbal meds or NSAIDs No recent iodinated contrast exposure. Noted obvious episodes of low BP (80s). pt unable to provide any hx pt with AKIs in past with cr up to 1.3 which improved intermittently to 0.8-0.9 cr 1.3 at presentation ROS: noted overnight events. feels better. SOB better. no urine complaints Physical Examination: General Appearance: Comfortable, in no acute respiratory distress, better appearing. Vitals reviewed and noted as below Head; Atraumatic, normocephalic ENT: extubated EYES: Pupils are equal, round and reactive to light accommodation. Eye muscles and extraocular movement intact. Sclera is anicteric. Neck; supple no lymphadenopathy, no thyromegaly or bruit Lungs: Normal respiratory rate/effort. Breath sounds bilateral b/l improved. has few wheeze Heart: Normal rate. s1s2 normal. No rub or gallop. Extremities: no edema. No varicose veins Neurological: Patient is awake alert follow commands Skin: Warm and dry. Normal turgor. No rash. Palpitation: Normal elasticity for age Abdomen: Abdomen is soft. Bowel sounds +. There is no abdominal tenderness, no guarding/rigidity no organomegaly Psych: normal insight. normal affeac MSK: no joint tenderness or swelling. Digits and nails normal, no deformity : kidney or bladder not palpable. Labs/imaging reviewed. Past medical history, past surgical history, family history, social history, allergy reviewed and noted as below Family hx: no hx of CKD. Rest non-contributory Objective - Vital Signs/Intake and Output Vital Signs (last 24 hours): Temp Pulse Resp BP Pulse Ox 99.0 F 88 20 155/88 H 95 09/29/18 14:00 09/29/18 14:00 09/29/18 14:00 09/29/18 14:00 09/29/18 14:00 Intake and Output: 09/29/18 09/29/18 06:59 18:59 Intake Total 240 Balance 240 - Medications Medications: Current Medications Acetylcysteine (Acetylcysteine 20%) 3 ml PO TID [facility] Last Admin: 09/29/18 15:01 Dose: Not Given Albuterol/Ipratropium (Duoneb 3 Mg/0.5 Mg (3 Ml) Ud) 3 ml IH Q6H [facility] Last Admin: 09/29/18 13:06 Dose: 3 ml Allopurinol (Zyloprim) 300 mg PO DAILY [facility] Last Admin: 09/20/18 12:23 Dose: 300 mg Alprazolam (Xanax) 0.125 mg PO TID PRN; Protocol PRN Reason: Agitation Amlodipine Besylate (Norvasc) 10 mg PO DAILY [facility] Last Admin: 09/29/18 09:35 Dose: 10 mg Arformoterol Tartrate (Brovana) 15 mcg IH [id number] [facility] Last Admin: 09/25/18 08:03 Dose: 15 mcg Artificial Tears (Refresh Opth Soln) 0.3 ml OU Q6 PRN PRN Reason: Dry eyes Last Admin: 09/27/18 09:45 Dose: 1 drop Budesonide (Pulmicort Respules) 1 mg IH [id number] [facility] Last Admin: 09/29/18 07:30 Dose: 1 mg Colchicine (Colocrys) 0.6 mg PO DAILY [facility] Last Admin: 09/29/18 11:14 Dose: Not Given Ergocalciferol (Drisdol 50,000 Intl Units Cap) 1 cap PO Q7D BLANK Last Admin: 09/25/18 13:50 Dose: 1 cap Famotidine (Pepcid) 20 mg PO DAILY [facility] Last Admin: 09/29/18 11:15 Dose: Not Given Heparin Sodium (Porcine) (Heparin) 5,000 units SC Q8 BLANK; Protocol Last Admin: 09/29/18 15:01 Dose: 5,000 units Hydralazine HCl (Apresoline) 25 mg PO Q4 PRN PRN Reason: SYS >170 OR ALBERTO >110 Labetalol HCl 600 mg/ Sodium (Chloride) 600 mls @ 60 mls/hr IV .Q10H PRN; Protocol PRN Reason: TITRATE PER MD ORDER Last Admin: 09/26/18 16:03 Dose: 1 mg/min, 60 mls/hr Ipratropium [place] (Atrovent) 0.5 mg IH [id number] PRN PRN Reason: Shortness of Breath Last Admin: 09/26/18 11:40 Dose: 0.5 mg Levalbuterol HCl (Xopenex) 0.63 mg IH Q2H PRN PRN Reason: sob/wheezing Last Admin: 09/26/18 11:40 Dose: 0.63 mg Losartan Potassium (Cozaar) 100 mg PO DAILY [facility] Last Admin: 09/29/18 09:26 Dose: 50 mg Methylprednisolone (Solu-Medrol) 20 mg IVP Q12 BLANK Montelukast Sodium (Singulair) 10 mg PO HS [facility] Last Admin: 09/28/18 21:00 Dose: 10 mg - Labs Labs: 09/29/18 06:35 09/29/18 06:35
--- NOTE | 2018-09-29 15:53 | PN ---
DATE: 09/29/2018 PULMONARY PROGRESS NOTE REFERRING PHYSICIAN: Mary Roper MD SUBJECTIVE: The patient is sitting up at bedside trying to get out of bed. Patient reports that he is going home today, seems confused and slightly agitated. Nursing staff reports that the patient has been trying to get out of bed and noted with agitation last night. Nursing staff reports the patient refused CPAP machine last night. No headache, rhinitis, shortness of breath, cough, chest pain, abdominal pain, nausea, vomiting, diarrhea, leg pain or leg swelling reported. PHYSICAL EXAMINATION VITAL SIGNS: Blood pressure 151/87, pulse 82, temperature 98.3, oxygen saturation 94 on nasal cannula. GENERAL: Slightly agitated. HEENT: Moist mucous membrane. Mallampati score of 4. Crowded airway. NECK: Supple. No JVD. LUNGS: A few rhonchi bilaterally. No wheeze. CARDIOVASCULAR: S1, S2 audible. ABDOMEN: Soft, nontender. No organomegaly. No distention. EXTREMITIES: No bilateral lower extremity edema. NEUROLOGIC: Awake, alert, verbal. Able to follow commands. Some confusion noted this morning. LABORATORY DATA: Reviewed. WBC 14, RBC 5.07, hemoglobin 15.4, hematocrit 47.2, platelets 84. Sodium 141, potassium 4.4, chloride 102, carbon dioxide 36, anion gap 7, BUN 33, creatinine 0.7, GFR greater than 60, random glucose 123. Calcium 8.5. Total bilirubin 1.2, AST 75, ALT 84, alkaline phosphatase 71, total protein 6.1, albumin 3.4, globulin 2.7, albumin-globulin ratio of 1.3. MEDICATIONS: Reviewed. Mucomyst 3 mL three times a day inhalation, DuoNeb 3 mL inhalation every six hours, Norvasc 10 mg daily, Brovana 15 mcg inhalation every 12 hours, artificial tears every six hours as needed, Pulmicort 1 mg inhalation every 12 hours, colchicine 0.6 mg daily, ergocalciferol 50,000 units one cap weekly, Pepcid 20 mg daily, heparin 5000 units subcutaneously every eight hours, hydralazine 25 mg every four hours as needed for systolic greater than 170, Atrovent 0.5 mg inhalation every six hours as needed, Xopenex 0.6 mg inhalation every two hours as needed, Cozaar 100 mg by mouth daily, Solu-Medrol 40 mg IV push every 12 hours, Singulair 10 mg at bedtime. IMPRESSION AND PLAN: Status post respiratory failure, chronic obstructive lung disease, suspected sleep apnea syndrome, severe gout, history of hypertension, steroid dependent, history of steroid psychosis, NEW ALLERGY TO ZITHROMAX. Pulmonary point of view, continue inhaled bronchodilators, continue antibiotics, sleep apnea precaution, continue to encourage bilevel positive airway pressure use at bedtime. Gastric prophylaxis, deep venous thrombosis prophylaxis. We will decrease steroids to 20 mg every 12 hours. We will add as-needed Xanax for agitation. Monitor for sedation. This patient was seen and examined with Dr. Coughlin. Discussed assessment and plan as described above. Thank you for this consult and we will follow with you. Blake Moss APN Morgan Coughlin MD [facility]
[2018-09-30] MEDS: Albuterol-Ipratrop 3 mg / 0.5 (3 ml) UD IH SCH ×4 (02:50→20:28)
--- NOTE | 2018-09-30 04:38 | PN ---
DATE: 09/29/2018 SUBJECTIVE: The patient is a 73-year-old male. The patient was seen and examined at the bedside on 09/29/2018. Looking little bit better. No fever. No chills. No hematuria. No hematochezia. No swelling of the legs. No chest pain. No palpitations. No headaches. Cough is better. Shortness of breath is better but as per the patient, the patient is getting episodes of confusion. PHYSICAL EXAMINATION: VITAL SIGNS: Temperature 98.3, pulse 82, respiratory rate 20, blood pressure 150/87, pulse oximetry 94%. HEENT: Head is normocephalic and atraumatic. Eyes PERRLA. Extraocular movements are intact. Conjunctivae clear. Nose patent. NECK: Supple. No carotid bruits, JVD, or thyromegaly. CHEST: Bilaterally symmetrical. HEART: S1 and S2 positive. LUNGS: Clear to auscultation. ABDOMEN: Soft. Bowel sounds present. No organomegaly. EXTREMITIES: No edema. No cyanosis. NEUROLOGIC: The patient is awake, alert. Follows simple command. MEDICATIONS: Acetylcysteine, albuterol, allopurinol, alprazolam, amlodipine, Brovana, Pulmicort, colchicine, Pepcid, hydralazine, losartan, Singulair. LABORATORY DATA: White blood cells 14, hemoglobin 15.4, hematocrit 47.2, platelets 84. Sodium 141, potassium 4.4, BUN 38, creatinine 0.7, glucose 123. ASSESSMENT AND PLAN: Mr. Jeffry Denson is a 73-year-old male with leukocytosis, thrombocytopenia, renal insufficiency, hyperglycemia, steroid dependent, chronic obstructive pulmonary disease, asthma, hypertension, gouty arthritis. Came with shortness of breath. Has exacerbation of chronic obstructive pulmonary disease and asthma. He was intubated, got better. Resolved acute hypoxemic respiratory failure secondary to chronic obstructive pulmonary disease and asthma exacerbation. Systemic inflammatory response syndrome without clear infectious etiology. Acute kidney injury, resolving. History of gout. The patient has history of steroid-induced psychosis. Now, we are tapering down the steroid. Blood cultures are negative. Rapid flu test is negative. History of rapid response. negative. Plan is to continue present treatment. Seen by, security sergeant and Dr. Coughlin, police stenographer. Discussion was done with the patient and the nursing staff. Suspected sleep apnea syndrome. We will continue inhaled bronchodilators. Continue antibiotics. Sleep apnea precautions. Encourage bilevel positive airway pressure use at bedtime. Monitoring labs. We will follow up. Mary Roper MD MTDKelli
[2018-09-30] MEDS: Budesonide 0.5 mg/2 ml Inhal Susp UD IH SCH ×2 (08:56→20:28)
[2018-09-30] MEDS: MethylPREDNISolone 40 mg Vial IVP SCH (09:53)
--- NOTE | 2018-09-30 12:32 | PN ---
DATE: 09/30/2018 SUBJECTIVE: The patient is sitting up in bed. No overnight events reported. The patient reports he did not use CPAP machine last night. No headache, rhinitis, shortness of breath, cough, chest pain, nausea, vomiting, abdominal pain, diarrhea, leg pain, leg swelling reported. OBJECTIVE: GENERAL: No acute distress. VITAL SIGNS: Blood pressure 134/79, pulse 95, temperature 98.1, oxygen saturation 96% on room air. HEENT: Moist mucous membranes. Mallampati score is 4. Crowded airway. NECK: Supple. No JVD. LUNGS: Few rhonchi bilaterally. No wheezing. CARDIOVASCULAR: S1, S2 audible. ABDOMEN: Soft and nontender. No distension. No organomegaly. EXTREMITIES: No bilateral edema. NEUROLOGIC: Awake, alert, verbal and able to follow commands. LABORATORY DATA: Reviewed. No new labs. MEDICATIONS: Mucomyst 3 mL three times a day, DuoNeb 3 mL inhalation every 6 hours, Xanax 0.125 mg three times a day as needed, Norvasc 10 mg daily, Brovana 15 mcg every 12 hours, artificial tears 0.3 each eye every 6 hours as needed, Pulmicort 1 mg inhalation every 12 hours, colchicine 0.6 mg daily, ergocalciferol 50,000 units one cap weekly, Pepcid 20 mg daily, hydralazine 25 mg every four hours as needed for systolic greater than 170, Atrovent 0.5 mg inhalation every 6 hours as needed, Xopenex 0.63 mg inhalation every two hours as needed, Cozaar 100 mg daily, Solu-Medrol 20 mg IV push every 12 hours, Singulair 10 mg p.o. at bedtime. IMPRESSION AND PLAN: Status post respiratory failure, chronic obstructive lung disease, suspected sleep apnea syndrome, severe gout, history of hypertension, steroid dependent, history of steroid psychosis, NEW ALLERGY TO ZITHROMAX. Pulmonary point of view, continue inhaled bronchodilators, continue antibiotics, sleep apnea precaution. Spoke to the patient this morning and encouraged BiPAP use at bedtime. Gastric prophylaxis, deep venous thrombosis prophylaxis. Avoid nocturnal sedation This patient was seen and examined with Dr. Coughlin. Discussed assessment and plan as described above. Thank you for this consult and we will follow with you. Blake Moss APN [place]
[2018-09-30] MEDS ORDERED: MethylPREDNISolone 40 mg Vial IVP SCH (13:23)
--- NOTE | 2018-09-30 14:55 | CP.PCM.PN ---
Subjective - Date & Time of Evaluation Date of Evaluation: 09/30/18 Time of Evaluation: 14:55 - Subjective Subjective: Nephrology Consultation Note: Assessment: stable Acute Kidney Injury (N17.9) likely hemodynamic and pre-renal state due to diuresis, ATN: improved with IVF hyperkalemia, hypernatremia combined respi and metabolic acidosis acute on chronic hypercapnic respi failure with COPD/asthma exacerbation Vit D def Plan No acute need for renal replacement therapy at this time. AMPARO resolved Maintain hemodynamics stable. Avoid hypotension. losartan increased to 100 mg/day increased norvasc 10 mg/day. prn hydralazine Monitor Input/Output, daily weights and renal function with basic metabolic panel on vit D weekly Dose meds/antibiotics for improved GFR. Glycemic control Further work up/management as per primary team Thanks for allowing me to participate in care of your patient. Will follow patient with you. Please call if any Qs. had d/w team Dr Ming [place] Office: [phone] Reason for consult: Acute Kidney Injury HPI: Pt is a 73 M with hx of copd/asthma presented with complaints of SOB and intubated for acute respi failure. renal consult for AMPARO. Denies OTC/herbal meds or NSAIDs No recent iodinated contrast exposure. Noted obvious episodes of low BP (80s). pt unable to provide any hx pt with AKIs in past with cr up to 1.3 which improved intermittently to 0.8-0.9 cr 1.3 at presentation ROS: noted overnight events. feels better. SOB better. no urine complaints Physical Examination: General Appearance: Comfortable, in no acute respiratory distress, better appearing. Vitals reviewed and noted as below Head; Atraumatic, normocephalic ENT: extubated EYES: Pupils are equal, round and reactive to light accommodation. Eye muscles and extraocular movement intact. Sclera is anicteric. Neck; supple no lymphadenopathy, no thyromegaly or bruit Lungs: Normal respiratory rate/effort. Breath sounds bilateral b/l improved and clearer Heart: Normal rate. s1s2 normal. No rub or gallop. Extremities: no edema. No varicose veins Neurological: Patient is awake alert follow commands Skin: Warm and dry. Normal turgor. No rash. Palpitation: Normal elasticity for age Abdomen: Abdomen is soft. Bowel sounds +. There is no abdominal tenderness, no guarding/rigidity no organomegaly Psych: normal insight. normal affeac MSK: no joint tenderness or swelling. Digits and nails normal, no deformity : kidney or bladder not palpable. Labs/imaging reviewed. Past medical history, past surgical history, family history, social history, allergy reviewed and noted as below Family hx: no hx of CKD. Rest non-contributory Objective - Vital Signs/Intake and Output Vital Signs (last 24 hours): Temp Pulse Resp BP Pulse Ox 98.6 F 107 H 20 144/94 H 90 L 09/30/18 14:09 09/30/18 14:09 09/30/18 14:09 09/30/18 14:09 09/30/18 14:09 Intake and Output: 09/30/18 09/30/18 06:59 18:59 Intake Total 240 Output Total 200 Balance 40 - Medications Medications: Current Medications Acetylcysteine (Acetylcysteine 20%) 3 ml PO TID [facility] Last Admin: 09/29/18 17:46 Dose: Not Given Albuterol/Ipratropium (Duoneb 3 Mg/0.5 Mg (3 Ml) Ud) 3 ml IH Q6H [facility] Last Admin: 09/30/18 14:20 Dose: 3 ml Allopurinol (Zyloprim) 300 mg PO DAILY [facility] Last Admin: 09/20/18 12:23 Dose: 300 mg Alprazolam (Xanax) 0.125 mg PO TID PRN; Protocol PRN Reason: Agitation Amlodipine Besylate (Norvasc) 10 mg PO DAILY [facility] Last Admin: 09/30/18 09:51 Dose: 10 mg Arformoterol Tartrate (Brovana) 15 mcg IH [id number] [facility] Last Admin: 09/25/18 08:03 Dose: 15 mcg Artificial Tears (Refresh Opth Soln) 0.3 ml OU Q6 PRN PRN Reason: Dry eyes Last Admin: 09/27/18 09:45 Dose: 1 drop Budesonide (Pulmicort Respules) 1 mg IH [id number] [facility] Last Admin: 09/30/18 08:56 Dose: 1 mg Colchicine (Colocrys) 0.6 mg PO DAILY [facility] Last Admin: 09/30/18 09:50 Dose: 0.6 mg Ergocalciferol (Drisdol 50,000 Intl Units Cap) 1 cap PO Q7D [facility] Last Admin: 09/25/18 13:50 Dose: 1 cap Famotidine (Pepcid) 20 mg PO DAILY [facility] Last Admin: 09/30/18 09:53 Dose: 20 mg Hydralazine HCl (Apresoline) 25 mg PO Q4 PRN PRN Reason: SYS >170 OR ALBERTO >110 Labetalol HCl 600 mg/ Sodium (Chloride) 600 mls @ 60 mls/hr IV .Q10H PRN; Protocol PRN Reason: TITRATE PER MD ORDER Last Admin: 09/26/18 16:03 Dose: 1 mg/min, 60 mls/hr Ipratropium [place] (Atrovent) 0.5 mg IH [id number] PRN PRN Reason: Shortness of Breath Last Admin: 09/26/18 11:40 Dose: 0.5 mg Levalbuterol HCl (Xopenex) 0.63 mg IH Q2H PRN PRN Reason: sob/wheezing Last Admin: 09/26/18 11:40 Dose: 0.63 mg Losartan Potassium (Cozaar) 100 mg PO DAILY [facility] Last Admin: 09/30/18 09:52 Dose: 100 mg Methylprednisolone (Solu-Medrol) 10 mg IVP Q12 [facility] Montelukast Sodium (Singulair) 10 mg PO HS [facility] Last Admin: 09/29/18 22:24 Dose: 10 mg - Labs Labs: 09/29/18 06:35 09/29/18 06:35
--- NOTE | 2018-09-30 23:01 | PN ---
DATE: 09/30/2018 SUBJECTIVE: The patient is in bed, in no acute distress, nontoxic. PHYSICAL EXAMINATION: VITAL SIGNS: Temperature is 98, blood pressure is 140/90, respiratory rate of 20, heart rate of 95. HEENT: Unremarkable. NECK: Supple. LUNGS: Have decreased breath sounds. HEART: Normal S1, S2. ABDOMEN: Soft, nontender. LABORATORY DATA: Reveals a white count of 14,000, hemoglobin of 15 and platelets of 84. Chemistries are noted. BUN 33, creatinine of 0.7. Urinalysis is noted. Serology is reviewed. Microbiology is noted. ASSESSMENT AND PLAN: This is a 73-year-old male, seen this morning in room 76, bed 2, who was initially admitted with steroid-dependent chronic obstructive pulmonary disease, asthma, hypertension, gout, resolved acute hypoxic respiratory failure and systemic inflammatory response syndrome, had completed his course of antibiotics and we will follow with you. Currently off of antibiotics. The patient is at risk for developing nosocomial infections. Malvin Bear MD
[2018-10-01] MEDS: Albuterol-Ipratrop 3 mg / 0.5 (3 ml) UD IH SCH ×3 (07:34→19:52)
[2018-10-01] MEDS: Budesonide 0.5 mg/2 ml Inhal Susp UD IH SCH ×2 (07:34→19:52)
--- NOTE | 2018-10-01 08:20 | PN ---
DATE: 09/30/2018 SUBJECTIVE: The patient was seen and examined on 09/30/2018 on the bedside. Looking little bit confused and was anxious because of his behavior and because of his hallucinations. I spoke to him, and we will taper down the steroids. Otherwise, no fever, no chills. No headache or dizziness. No chest pain. No palpitations. PHYSICAL EXAMINATION: VITAL SIGNS: Temperature 98.1, blood pressure 134/79, pulse 95, oxygen saturation 96% on room air. HEENT: Head is normocephalic and atraumatic. Eyes PERRLA. Extraocular movements are intact. Conjunctivae clear. Nose patent. Mucous membranes are moist. NECK: Supple. No carotid bruits. No JVD. No thyromegaly. CHEST: Bilaterally symmetrical. HEART: S1 and S2 positive. LUNGS: Clear to auscultation. ABDOMEN: Soft. No organomegaly. EXTREMITIES: No edema. No cyanosis. NEUROLOGIC: The patient is awake and alert. Follows simple commands. LABORATORY DATA: We do not have recent lab today, but I reviewed old labs. MEDICATIONS: Mucomyst, Xanax, Brovana, Clonidine, vitamin D, hydralazine, atorvastatin. ASSESSMENT AND PLAN: Mr. Jeffry Denson is a 73-year-old male, status post respiratory failure, chronic obstructive lung disease with sleep apnea syndrome, gouty arthritis, hypertension, steroid dependence. He took steroids HE IS ALLERGIC WITH DIFFERENT MEDICATIONS. Patient is doing better. Patient has steroid induced psychosis he is not feeling better. Discussion done with nurse practitioner. The patient also decreased Solu-Medrol from 20 to 10. We will repeat labs. We will follow up. Mary Roper MD
--- NOTE | 2018-10-01 13:24 | PN ---
PULMONARY PROGRESS NOTE DATE: 10/01/2018 REFERRING PHYSICIAN: Mary Roper MD SUBJECTIVE: The patient is sitting up in bed, reports feeling well today. No overnight events reported. Reports he used CPAP machine last night. No headache, rhinitis, shortness of breath, chest pain, nausea, vomiting, abdominal pain, diarrhea, leg pain, or leg swelling reported. The patient does report occasional cough. OBJECTIVE: GENERAL: No acute distress. VITAL SIGNS: Blood pressure 150/96, heart rate 91, oxygen saturation 98% on 3 liters, and temperature 98.2. HEENT: Moist mucous membrane. Mallampati score 4. Crowded airway. NECK: Supple. No JVD. LUNGS: Few rhonchi bilaterally. No audible wheeze. CARDIOVASCULAR: S1, S2 audible. ABDOMEN: Soft and nontender. No distention. No organomegaly. EXTREMITIES: No bilateral edema. NEUROLOGIC: Awake, alert, verbal, follow simple commands. LABORATORY DATA: Reviewed. No new labs. MEDICATIONS: Reviewed. Mucomyst 3 mL three times a day, DuoNeb 3 mL inhalation every 6 hours, allopurinol on hold, Xanax 0.125 mg p.o. three times a day, p.r.n. Norvasc 10 mg p.o. daily, Brovana 50 mcg inhalation every 12 hours, Artificial Tears every 6 hours as needed, Pulmicort 1 mg inhalation every 12 hours, colchicine 0.6 mg p.o. daily, ergocalciferol 1 cap p.o. weekly, Pepcid 20 mg p.o. daily, heparin 5000 units subcutaneous every 8 hours, hydralazine 25 mg every 4 hours p.r.n. systolic greater than 170, hydralazine 50 mg p.o. twice a day, Ativan 0.5 mg inhalation every 6 hours p.r.n., labetalol on hold, Xopenex 0.63 mg inhalation every two hours p.r.n., Cozaar 100 mg p.o. daily and Singulair 10 mg p.o. at bedtime. IMPRESSION AND PLAN: Status post respiratory failure, chronic obstructive lung disease, suspected sleep apnea syndrome, severe gout, steroid dependent, history of steroid psychosis, ALLERGY TO ZITHROMAX. Pulmonary point of view, continue inhaled bronchodilators, continue antibiotics, sleep apnea precaution; continue bilevel positive airway pressure use at bedtime, gastric prophylaxis, deep venous thrombosis prophylaxis. Avoid nocturnal sedation. We will continue the patient's allopurinol along with colchicine. We will add prednisone 20 mg p.o. daily. This patient was seen and examined with Dr. Coughlin. Discussed assessment and plan as described above. Thank you for this consult and we will follow with you. Blake Moss APN Morgan Coughlin MD MTDKelli
--- NOTE | 2018-10-01 14:00 | CP.PCM.PN ---
Subjective - Date & Time of Evaluation Date of Evaluation: 10/01/18 Time of Evaluation: 14:00 - Subjective Subjective: Nephrology Consultation Note: Assessment: stable Acute Kidney Injury (N17.9) likely hemodynamic and pre-renal state due to diuresis, ATN: improved with IVF hyperkalemia, hypernatremia combined respi and metabolic acidosis acute on chronic hypercapnic respi failure with COPD/asthma exacerbation Vit D def Plan No acute need for renal replacement therapy at this time. AMPARO resolved Maintain hemodynamics stable. Avoid hypotension. losartan increased to 100 mg/day increased norvasc 10 mg/day. prn hydralazine and 50 mg bid Monitor Input/Output, daily weights and renal function with basic metabolic panel on vit D weekly Dose meds/antibiotics for improved GFR. Glycemic control Further work up/management as per primary team Thanks for allowing me to participate in care of your patient. Will follow patient with you. Please call if any Qs. had d/w team Dr Ming [place] Office: [phone] Reason for consult: Acute Kidney Injury HPI: Pt is a 73 M with hx of copd/asthma presented with complaints of SOB and intubated for acute respi failure. renal consult for AMPARO. Denies OTC/herbal meds or NSAIDs No recent iodinated contrast exposure. Noted obvious episodes of low BP (80s). pt unable to provide any hx pt with AKIs in past with cr up to 1.3 which improved intermittently to 0.8-0.9 cr 1.3 at presentation ROS: noted overnight events. feels better. SOB better. no urine complaints Physical Examination: General Appearance: Comfortable, in no acute respiratory distress, better appe aring. Vitals reviewed and noted as below Head; Atraumatic, normocephalic ENT: extubated EYES: Pupils are equal, round and reactive to light accommodation. Eye muscles and extraocular movement intact. Sclera is anicteric. Neck; supple no lymphadenopathy, no thyromegaly or bruit Lungs: Normal respiratory rate/effort. Breath sounds bilateral b/l improved and clearer Heart: Normal rate. s1s2 normal. No rub or gallop. Extremities: no edema. No varicose veins Neurological: Patient is awake alert follow commands Skin: Warm and dry. Normal turgor. No rash. Palpitation: Normal elasticity for age Abdomen: Abdomen is soft. Bowel sounds +. There is no abdominal tenderness, no guarding/rigidity no organomegaly Psych: normal insight. normal affeac MSK: no joint tenderness or swelling. Digits and nails normal, no deformity : kidney or bladder not palpable. Labs/imaging reviewed. Past medical history, past surgical history, family history, social history, allergy reviewed and noted as below Family hx: no hx of CKD. Rest non-contributory Objective - Vital Signs/Intake and Output Vital Signs (last 24 hours): Temp Pulse Resp BP Pulse Ox 98.6 F 125 H 20 118/90 93 L 10/01/18 12:30 10/01/18 12:44 10/01/18 12:30 10/01/18 12:44 10/01/18 12:30 Intake and Output: 10/01/18 10/01/18 06:59 18:59 Intake Total 240 Balance 240 - Medications Medications: Current Medications Acetylcysteine (Acetylcysteine 20%) 4 ml IH BIDRESP [facility] Albuterol/Ipratropium (Duoneb 3 Mg/0.5 Mg (3 Ml) Ud) 3 ml IH Q6H [facility] Last Admin: 10/01/18 07:34 Dose: 3 ml Allopurinol (Zyloprim) 300 mg PO DAILY [facility] Last Admin: 09/20/18 12:23 Dose: 300 mg Alprazolam (Xanax) 0.125 mg PO TID PRN; Protocol PRN Reason: Agitation Amlodipine Besylate (Norvasc) 10 mg PO DAILY [facility] Last Admin: 10/01/18 10:17 Dose: 10 mg Arformoterol Tartrate (Brovana) 15 mcg IH [id number] [facility] Last Admin: 09/25/18 08:03 Dose: 15 mcg Artificial Tears (Refresh Opth Soln) 0.3 ml OU Q6 PRN PRN Reason: Dry eyes Last Admin: 09/27/18 09:45 Dose: 1 drop Budesonide (Pulmicort Respules) 1 mg IH [id number] [facility] Last Admin: 10/01/18 07:34 Dose: 1 mg Colchicine (Colocrys) 0.6 mg PO DAILY [facility] Last Admin: 10/01/18 10:16 Dose: 0.6 mg Ergocalciferol (Drisdol 50,000 Intl Units Cap) 1 cap PO Q7D [facility] Last Admin: 09/25/18 13:50 Dose: 1 cap Famotidine (Pepcid) 20 mg PO DAILY [facility] Last Admin: 10/01/18 10:09 Dose: 20 mg Heparin Sodium (Porcine) (Heparin) 5,000 units SC Q8 [facility]; Protocol Last Admin: 10/01/18 13:51 Dose: 5,000 units Hydralazine HCl (Apresoline) 25 mg PO Q4 PRN PRN Reason: SYS >170 OR ALBERTO >110 Hydralazine HCl (Apresoline) 50 mg PO BID [facility] Last Admin: 10/01/18 12:44 Dose: 50 mg Ipratropium [place] (Atrovent) 0.5 mg IH [id number] PRN PRN Reason: Shortness of Breath Last Admin: 09/26/18 11:40 Dose: 0.5 mg Levalbuterol HCl (Xopenex) 0.63 mg IH Q2H PRN PRN Reason: sob/wheezing Last Admin: 09/26/18 11:40 Dose: 0.63 mg Losartan Potassium (Cozaar) 100 mg PO DAILY [facility] Last Admin: 10/01/18 10:10 Dose: 100 mg Montelukast Sodium (Singulair) 10 mg PO HS [facility] Last Admin: 09/30/18 21:58 Dose: 10 mg Prednisone (Prednisone Tab) 20 mg PO DAILY [facility] - Labs Labs: 09/29/18 06:35 09/29/18 06:35
--- NOTE | 2018-10-01 15:04 | CP.PCM.PN ---
<Umesh Lin - Last Filed: 10/01/18 15:04> Subjective - Date & Time of Evaluation Date of Evaluation: 10/01/18 Time of Evaluation: 15:02 - Subjective Subjective: ID progress note for Dr. Galarza/Dr. Bear service - Herbert Lin PGY3 Patient seen and examined at bedside this morning. No acute overnight events or new complaints were reported. Denies chest pain, palpitations or SOB. Objective - Vital Signs/Intake and Output Vital Signs (last 24 hours): Temp Pulse Resp BP Pulse Ox 99.1 F 91 H 20 102/71 98 10/01/18 14:00 10/01/18 14:00 10/01/18 14:00 10/01/18 14:00 10/01/18 14:00 Intake and Output: 10/01/18 10/01/18 06:59 18:59 Intake Total 240 Balance 240 - Medications Medications: Current Medications Acetylcysteine (Acetylcysteine 20%) 4 ml IH BIDRESP [facility] Albuterol/Ipratropium (Duoneb 3 Mg/0.5 Mg (3 Ml) Ud) 3 ml IH Q6H BLANK Last Admin: 10/01/18 14:15 Dose: 3 ml Allopurinol (Zyloprim) 300 mg PO DAILY [facility] Last Admin: 09/20/18 12:23 Dose: 300 mg Alprazolam (Xanax) 0.125 mg PO TID PRN; Protocol PRN Reason: Agitation Amlodipine Besylate (Norvasc) 10 mg PO DAILY [facility] Last Admin: 10/01/18 10:17 Dose: 10 mg Arformoterol Tartrate (Brovana) 15 mcg IH [id number] [facility] Last Admin: 09/25/18 08:03 Dose: 15 mcg Artificial Tears (Refresh Opth Soln) 0.3 ml OU Q6 PRN PRN Reason: Dry eyes Last Admin: 09/27/18 09:45 Dose: 1 drop Budesonide (Pulmicort Respules) 1 mg IH [id number] [facility] Last Admin: 10/01/18 07:34 Dose: 1 mg Colchicine (Colocrys) 0.6 mg PO DAILY [facility] Last Admin: 10/01/18 10:16 Dose: 0.6 mg Ergocalciferol (Drisdol 50,000 Intl Units Cap) 1 cap PO Q7D [facility] Last Admin: 09/25/18 13:50 Dose: 1 cap Famotidine (Pepcid) 20 mg PO DAILY [facility] Last Admin: 10/01/18 10:09 Dose: 20 mg Heparin Sodium (Porcine) (Heparin) 5,000 units SC Q8 [facility]; Protocol Last Admin: 10/01/18 13:51 Dose: 5,000 units Hydralazine HCl (Apresoline) 25 mg PO Q4 PRN PRN Reason: SYS >170 OR ALBERTO >110 Hydralazine HCl (Apresoline) 50 mg PO BID [facility] Last Admin: 10/01/18 12:44 Dose: 50 mg Ipratropium [place] (Atrovent) 0.5 mg IH [id number] PRN PRN Reason: Shortness of Breath Last Admin: 09/26/18 11:40 Dose: 0.5 mg Levalbuterol HCl (Xopenex) 0.63 mg IH Q2H PRN PRN Reason: sob/wheezing Last Admin: 09/26/18 11:40 Dose: 0.63 mg Losartan Potassium (Cozaar) 100 mg PO DAILY [facility] Last Admin: 10/01/18 10:10 Dose: 100 mg Montelukast Sodium (Singulair) 10 mg PO HS [facility] Last Admin: 09/30/18 21:58 Dose: 10 mg Prednisone (Prednisone Tab) 20 mg PO DAILY [facility] - Labs Labs: 09/29/18 06:35 09/29/18 06:35 - Constitutional Appears: No Acute Distress - Head Exam Head Exam: ATRAUMATIC, NORMAL INSPECTION, NORMOCEPHALIC - Eye Exam Eye Exam: EOMI, PERRL - ENT Exam ENT Exam: Mucous Membranes Moist - Respiratory Exam Respiratory Exam: Clear to Ausculation Bilateral. absent: Rales, Rhonchi, Wheezes - Cardiovascular Exam Cardiovascular Exam: +S1, +S2. absent: Gallop, JVD, Rubs, Murmur - GI/Abdominal Exam GI & Abdominal Exam: Soft, Normal Bowel Sounds. absent: Distended, Firm, Guarding, Rigid, Tenderness, Rebound - Neurological Exam Neurological Exam: Alert, Awake, Oriented x3 - Psychiatric Exam Psychiatric exam: Normal Affect, Normal Mood - Skin Skin Exam: Dry, Intact, Normal Color, Warm Assessment and Plan - Assessment and Plan (Free Text) Plan: 73yo male with history of steroid-dependent COPD/asthma, hypertension and gout presents with shortness of breath secondary to COPD/asthma exacerbation complicated by allergic drug reaction to azithromycin 1. resolved acute hypoxemic respiratory failure secondary to COPD/asthma exacerbation 2. Allergic drug reaction to azithromycin 3. SIRS without clear infectious etiology 4. AMPARO, resolved 5. Hx of gout -Remains afebrile -leukocytosis likely secondary to steroid administration -Completed course of doxycyline for COPD exacerbation -Blood cultures negative -Rapid flu negative -CXR revealed no active disease -Procalcitonin negative -continue present management as per medicine team Patient seen and case discussed/reviewed with attending, Dr. Galarza <Deejay Galarza - Last Filed: 10/01/18 17:57> Objective - Vital Signs/Intake and Output Vital Signs (last 24 hours): Temp Pulse Resp BP Pulse Ox 99.1 F 91 H 20 102/71 98 10/01/18 14:00 10/01/18 14:00 10/01/18 14:00 10/01/18 14:00 10/01/18 14:00 Intake and Output: 10/01/18 10/01/18 06:59 18:59 Intake Total 240 Balance 240 - Medications Medications: Current Medications Acetylcysteine (Acetylcysteine 20%) 4 ml IH BIDRESP [facility] Albuterol/Ipratropium (Duoneb 3 Mg/0.5 Mg (3 Ml) Ud) 3 ml IH Q6H BLANK Last Admin: 10/01/18 14:15 Dose: 3 ml Allopurinol (Zyloprim) 300 mg PO DAILY [facility] Last Admin: 09/20/18 12:23 Dose: 300 mg Alprazolam (Xanax) 0.125 mg PO TID PRN; Protocol PRN Reason: Agitation Amlodipine Besylate (Norvasc) 10 mg PO DAILY [facility] Last Admin: 10/01/18 10:17 Dose: 10 mg Arformoterol Tartrate (Brovana) 15 mcg IH [id number] BLANK Last Admin: 09/25/18 08:03 Dose: 15 mcg Artificial Tears (Refresh Opth Soln) 0.3 ml OU Q6 PRN PRN Reason: Dry eyes Last Admin: 09/27/18 09:45 Dose: 1 drop Budesonide (Pulmicort Respules) 1 mg IH [id number] BLANK Last Admin: 10/01/18 07:34 Dose: 1 mg Colchicine (Colocrys) 0.6 mg PO DAILY [facility] Last Admin: 10/01/18 10:16 Dose: 0.6 mg Ergocalciferol (Drisdol 50,000 Intl Units Cap) 1 cap PO Q7D [facility] Last Admin: 09/25/18 13:50 Dose: 1 cap Famotidine (Pepcid) 20 mg PO DAILY [facility] Last Admin: 10/01/18 10:09 Dose: 20 mg Heparin Sodium (Porcine) (Heparin) 5,000 units SC Q8 [facility]; Protocol Last Admin: 10/01/18 13:51 Dose: 5,000 units Hydralazine HCl (Apresoline) 25 mg PO Q4 PRN PRN Reason: SYS >170 OR ALBERTO >110 Hydralazine HCl (Apresoline) 50 mg PO BID [facility] Last Admin: 10/01/18 12:44 Dose: 50 mg Ipratropium [place] (Atrovent) 0.5 mg IH [id number] PRN PRN Reason: Shortness of Breath Last Admin: 09/26/18 11:40 Dose: 0.5 mg Levalbuterol HCl (Xopenex) 0.63 mg IH Q2H PRN PRN Reason: sob/wheezing Last Admin: 09/26/18 11:40 Dose: 0.63 mg Losartan Potassium (Cozaar) 100 mg PO DAILY [facility] Last Admin: 10/01/18 10:10 Dose: 100 mg Montelukast Sodium (Singulair) 10 mg PO HS [facility] Last Admin: 09/30/18 21:58 Dose: 10 mg Prednisone (Prednisone Tab) 20 mg PO DAILY [facility] - Labs Labs: 09/29/18 06:35 09/29/18 06:35 Assessment and Plan - Assessment and Plan (Free Text) Plan: Infectious diseases Attending Physician Attestation Patient seen and examined, discussed with medical director/head team physician. I have reviewed the patient's history of present illness, past medical, social, personal and family histories, pertinent physical exam findings, course so far in this hospital admission, pertinent laboratory and imaging results. I agree with the above findings, assessment and plan. In addition, will continue to monitor the patient clinically off antibiotics - he is S/P treatment of acute exacebration of COPD.
[2018-10-01] MEDS: Acetylcysteine 20% Inhal Soln (4ml) IH SCH (19:51)
[2018-10-01] MEDS: Nystatin 100,000 Units/ml Oral Susp 5 ml UD PO SCH (23:21)
[2018-10-02] MEDS: Albuterol-Ipratrop 3 mg / 0.5 (3 ml) UD IH SCH ×4 (01:11→20:25)
--- NOTE | 2018-10-02 03:55 | PN ---
DATE: 10/01/2018 SUBJECTIVE: The patient is 73-year-old male. The patient was seen and examined at bedside on 10/01/2018. Looking comfortable. No nausea, vomiting, or diarrhea. No hematuria or hematochezia. The patient is sleepy, arousable, moving all 4 extremities. No over the night. The patient is still sometimes hallucinating. No fever. No chills. No nausea, vomiting, or diarrhea. PHYSICAL EXAMINATION: VITAL SIGNS: Temperature 99.1, pulse 91, respiratory rate 20, blood pressure 102/70, and pulse oximetry 98. HEENT: Head, normocephalic and atraumatic. Eyes, PERRLA. Extraocular movements are intact. Conjunctivae clear. Nose patent. Mucous membranes moist. NECK: Supple. No carotid bruit, JVD, or thyromegaly. CHEST: Bilaterally symmetrical. HEART: S1 and S2 positive. LUNGS: Clear to auscultation. ABDOMEN: Soft. Bowel sounds present. No organomegaly. EXTREMITIES: No edema. No cyanosis. NEUROLOGIC: The patient is sleepy, arousable, moving all 4 extremities. No focal deficit. MEDICATIONS: DuoNeb, allopurinol, Xanax, Norvasc, Brovana, artificial tears, Pulmicort, colchicine, Pepcid, heparin, hydralazine, atorvastatin, Cozaar, and Singulair. LABORATORIES: White blood cells 14, hemoglobin 15.4, hematocrit 47.2, and platelets 84. Sodium 141, potassium 4.4, BUN 32, creatinine 0.7, and glucose 123. ASSESSMENT AND PLAN: Mr. Jeffry Denson is a 73-year-old male with leukocytosis and thrombocytopenia, renal insufficiency, hyperglycemia, has steroid dependency, chronic obstructive pulmonary disease, asthma, hypertension, gouty arthritis with shortness of breath secondary to chronic obstructive pulmonary disease, asthma exacerbation, resolved acute hypoxic respiratory failure secondary to chronic obstructive pulmonary disease and asthma exacerbation, systemic inflammatory response syndrome without clear infectious etiology which is getting better. Gout is getting better. Remains afebrile. Leukocytosis secondary to steroid administration. The patient is getting off the steroid. Completed course of doxycycline for chronic obstructive pulmonary disease exacerbation. Blood cultures are negative. Rapid flu test is negative. no active disease. Prolactin is negative. The patient is not eating very well. Looks like he has oral thrush. Swallowing evaluations done. Continue BiPAP with positive airway pressure, using at her bedside. Gastric and deep vein thrombosis prophylaxis. Avoid nocturnal sedation. Continue present treatment. Gastrointestinal and deep vein thrombosis prophylaxis. We will repeat laboratories. We will follow up. Mary Roper MD
[2018-10-02] MEDS: Budesonide 0.5 mg/2 ml Inhal Susp UD IH SCH ×2 (10:09→20:29)
[2018-10-02] MEDS: Acetylcysteine 20% Inhal Soln (4ml) IH SCH ×2 (10:09→20:25)
--- NOTE | 2018-10-02 11:20 | PN ---
PULMONARY PROGRESS NOTE DATE: 10/02/2018 REFERRING PHYSICIAN: Dr. Roper. SUBJECTIVE: The patient sitting in chair at bedside. No acute distress. The patient reports he did not wear CPAP machine last night. No headache, rhinitis, shortness of breath, cough, chest pain, abdominal pain, nausea, vomiting, leg pain and leg swelling reported OBJECTIVE: VITAL SIGNS: Blood pressure 122/79, pulse 100, temperature 98 and oxygen saturation 96% on room air. GENERAL: No acute distress. HEENT: Moist mucous membrane. Mallampati score 4. Crowded airway. Oral thrush. NECK: Supple. No JVD. LUNGS: Few rhonchi bilaterally. CARDIOVASCULAR: S1 and S2, audible. ABDOMEN: Soft and nontender. No distention. No organomegaly. EXTREMITIES: No bilateral edema. NEUROLOGIC: Awake, alert and verbally responsive. Follow simple commands. LABORATORY DATA: Reviewed. No new labs. MEDICATIONS: Reviewed. Mucomyst 4 mL inhalation twice a day, DuoNeb 3 mL inhalation every 6 hours, Norvasc 10 mg p.o. daily, Brovana 15 mcg inhalation every 12 hours, Artificial Tears every 6 hours as needed, Pulmicort 1 mg inhalation every 12 hours, colchicine 0.6 mg p.o. daily, ergocalciferol 1 cap p.o. weekly, Pepcid 20 mg p.o. daily, heparin 5000 units subcutaneous every 8 hours, hydralazine 25 mg every 4 hours p.r.n. systolic greater than 170, hydralazine 50 mg p.o. twice a day, Ativan 0.5 mg inhalation every 6 hours as needed, Xopenex 0.63 mg inhalation every 2 hours as needed, Cozaar 100 mg p.o. daily, Singulair 10 mg p.o. at bedtime, Nystatin oral suspension 5 mL p.o. 4 times a day and Prednisone 10 mg p.o. daily. IMPRESSION AND PLAN: Status post respiratory failure, chronic obstructive lung disease, suspected sleep apnea syndrome, severe gout, steroid dependant, history of steroid psychosis. ALLERGY TO ZITHROMAX. Pulmonary point of view, continue inhaled bronchodilators, sleep apnea precaution; continue bilevel positive airway pressure use at bedtime. Gastric prophylaxis. Deep venous thrombosis prophylaxis. Avoid nocturnal sedation. Continue steroids at this time being aware of potential for adrenal insufficiency should steroid be stopped suddenly. Continue allopurinol and colchicine for gout. Case discussed with Dr. Roper. This patient was seen and examined with Dr. Coughlin. Discussed assessment and plan as described above. Thank you for this consult and we will follow with you. Blake Moss APN Morgan Coughlin MD MTDKelli
--- NOTE | 2018-10-02 12:10 | CP.PCM.CON ---
History of Present Illness - History of Present Illness History of Present Illness: Awake, alert, no distress Reason for consultation: Cardiac evaluation of tachycardia Brief history of present illness: A 73 year old who came in the ER due to shortness of breath,exacerbation of asthma. History of asthma and COPD, gouty arthritis,hypertension and COPD.Post WEB ANALYST for tachycardia rate of 150's to 160's, thus admitted to ICU. Stabilized and heart rate has been on the 80's and 90's and transferred to Medical/Surgical unit. Yesterday heart rate started going up to the 110's thus cardiac consult was called to evaluate tachycardia. Seen and examined by me and Dr. Warner Review of Systems - Review of Systems All systems: reviewed and no additional remarkable complaints except Review of Systems: as per HPI Past Patient History - Infectious Disease Hx of Infectious Diseases: None - Past Social History Smoking Status: Unknown If Ever Smoked - CARDIAC Hx Hypertension: Yes - PULMONARY Hx Chronic Obstructive Pulmonary Disease (COPD): Yes - NEUROLOGICAL Hx Neurological Disorder: No - HEENT Hx HEENT Problems: No - ENDOCRINE/METABOLIC Hx Endocrine Disorders: No - HEMATOLOGICAL/ONCOLOGICAL Hx Blood Disorders: No - INTEGUMENTARY Hx Dermatological Problems: No - MUSCULOSKELETAL/RHEUMATOLOGICAL Hx Arthritis: Yes (gouty) - GASTROINTESTINAL Hx Gastrointestinal Disorders: No - GENITOURINARY/GYNECOLOGICAL Hx Genitourinary Disorders: No - PSYCHIATRIC Hx Psychophysiologic Disorder: No Hx Substance Use: No - SURGICAL HISTORY Hx Cardiac Catheterization: No Hx Coronary Stent: No - ANESTHESIA Hx Anesthesia: No Meds Allergies/Adverse Reactions: Allergies Allergy/AdvReac Type Severity Reaction Status Date / Time azithromycin Allergy SHORTNESS Verified 09/20/18 16:44 OF BREATH levofloxacin [From Levaquin] Allergy RASH Verified 09/20/18 03:12 Penicillins Allergy RASH Verified 09/20/18 03:12 vancomycin Allergy SHORTNESS Verified 09/20/18 03:12 OF BREATH - Medications Medications: Current Medications Acetylcysteine (Acetylcysteine 20%) 4 ml IH BIDRESP [facility] Last Admin: 10/02/18 10:09 Dose: 4 ml Albuterol/Ipratropium (Duoneb 3 Mg/0.5 Mg (3 Ml) Ud) 3 ml IH Q6H BLANK Last Admin: 10/02/18 10:09 Dose: 3 ml Amlodipine Besylate (Norvasc) 10 mg PO DAILY [facility] Last Admin: 10/01/18 10:17 Dose: 10 mg Arformoterol Tartrate (Brovana) 15 mcg IH [id number] [facility] Last Admin: 09/25/18 08:03 Dose: 15 mcg Artificial Tears (Refresh Opth Soln) 0.3 ml OU Q6 PRN PRN Reason: Dry eyes Last Admin: 09/27/18 09:45 Dose: 1 drop Budesonide (Pulmicort Respules) 1 mg IH [id number] [facility] Last Admin: 10/02/18 10:09 Dose: 1 mg Colchicine (Colocrys) 0.6 mg PO DAILY [facility] Last Admin: 10/01/18 10:16 Dose: 0.6 mg Ergocalciferol (Drisdol 50,000 Intl Units Cap) 1 cap PO Q7D [facility] Last Admin: 09/25/18 13:50 Dose: 1 cap Famotidine (Pepcid) 20 mg PO DAILY [facility] Last Admin: 10/01/18 10:09 Dose: 20 mg Heparin Sodium (Porcine) (Heparin) 5,000 units SC Q8 [facility]; Protocol Last Admin: 10/02/18 06:30 Dose: 5,000 units Hydralazine HCl (Apresoline) 25 mg PO Q4 PRN PRN Reason: SYS >170 OR ALBERTO >110 Hydralazine HCl (Apresoline) 50 mg PO BID [facility] Last Admin: 10/01/18 18:06 Dose: 50 mg Ipratropium [place] (Atrovent) 0.5 mg IH [id number] PRN PRN Reason: Shortness of Breath Last Admin: 09/26/18 11:40 Dose: 0.5 mg Levalbuterol HCl (Xopenex) 0.63 mg IH Q2H PRN PRN Reason: sob/wheezing Last Admin: 09/26/18 11:40 Dose: 0.63 mg Losartan Potassium (Cozaar) 100 mg PO DAILY [facility] Last Admin: 10/01/18 10:10 Dose: 100 mg Montelukast Sodium (Singulair) 10 mg PO HS [facility] Last Admin: 10/01/18 23:21 Dose: 10 mg Nystatin (Nystatin Oral Susp) 5 ml PO QID [facility] Last Admin: 10/01/18 23:21 Dose: 5 ml Prednisone (Prednisone Tab) 10 mg PO DAILY [facility] Physical Exam - Constitutional Appears: Non-toxic, No Acute Distress - Head Exam Head Exam: NORMAL INSPECTION, NORMOCEPHALIC - Eye Exam Eye Exam: Normal appearance Pupil Exam: NORMAL ACCOMODATION - ENT Exam ENT Exam: Mucous Membranes Moist, Normal Exam - Respiratory Exam Respiratory Exam: Decreased Breath Sounds, Rhonchi, NORMAL BREATHING PATTERN - Cardiovascular Exam Cardiovascular Exam: REGULAR RHYTHM, +S1, +S2 - GI/Abdominal Exam GI & Abdominal Exam: Normal Bowel Sounds, Soft - Neurological Exam Neurological exam: Alert, Oriented x3 - Psychiatric Exam Psychiatric exam: Normal Affect, Normal Mood - Skin Skin Exam: Dry, Normal Color, Warm Results - Vital Signs Recent Vital Signs: Last Vital Signs Temp 98.0 F 10/02/18 06:00 Pulse 100 H 10/02/18 06:00 Resp 18 10/02/18 06:00 BP 122/79 10/02/18 06:00 Pulse Ox 96 10/02/18 06:00 - Labs Result Diagrams: 09/29/18 06:35 09/29/18 06:35 Assessment & Plan - Assessment and Plan (Free Text) Assessment: A 73 year old who came in the ER due to shortness of breath, exacerbation of asthma/cOPD. History of asthma and COPD, gouty arthritis,hypertension.Post WEB ANALYST for tachycardia rate of 150's to 160's, thus admitted to ICU. Stabilized and heart rate has been on the 80's and 90's and transferred to Medical/Surgical unit. Yesterday heart rate started going up to the 110's thus cardiac consult was called to evaluate tachycardia.Recent echo on 09/22/18 showed LVEF 57%, Transmitral doppler flow pattern Grade I, mild aortic valve stenosis Plan: Denies shortness of breath Refusing CPAP/BIPAP at night Heart rate 100-110's Blood pressure controlled On Norvasc 10 mg daily,Hydralazine 50 mg BID,Cozaar 100 mg daily, Prednisone 10 mg daily Will change Albuterol to Xopenex to prevent further tachycardia Will start Atenolol 12.5 mg now and daily Continue current medications Continue current treatment Chart reviewed Will follow up Further recommendation during hospital course Plan and treatment discussed with Dr. Warner Thank you Dr. Roper for the opportunity of taking care of Jeffry Denson - Date & Time Date: 10/02/18 Time: 07:40
[2018-10-02] MEDS: Nystatin 100,000 Units/ml Oral Susp 5 ml UD PO SCH ×4 (12:19→22:59)
--- NOTE | 2018-10-02 13:21 | CP.PCM.PN ---
Subjective - Date & Time of Evaluation Date of Evaluation: 10/02/18 Time of Evaluation: 13:20 - Subjective Subjective: Nephrology Consultation Note: Assessment: stable Acute Kidney Injury (N17.9) likely hemodynamic and pre-renal state due to diuresis, ATN: improved with IVF hyperkalemia, hypernatremia combined respi and metabolic acidosis acute on chronic hypercapnic respi failure with COPD/asthma exacerbation Vit D def Plan No acute need for renal replacement therapy at this time. AMPARO resolved Maintain hemodynamics stable. bp is improved Monitor Input/Output, daily weights and renal function with basic metabolic panel on vit D weekly S: seen and examined no complaints Physical Examination: General Appearance: Comfortable, in no acute respiratory distress, better appearing. Vitals reviewed and noted as below Head; Atraumatic, normocephalic ENT: clear EYES: Pupils are equal, round and reactive to light accommodation. Eye muscles a nd extraocular movement intact. Sclera is anicteric. Neck; supple no lymphadenopathy, no thyromegaly or bruit Lungs: Normal respiratory rate/effort. Breath sounds bilateral b/l improved and clearer Heart: Normal rate. s1s2 normal. No rub or gallop. Extremities: no edema. No varicose veins Neurological: Patient is awake alert follow commands Skin: Warm and dry. Normal turgor. No rash. Palpitation: Normal elasticity for age Abdomen: Abdomen is soft. Bowel sounds +. There is no abdominal tenderness, no guarding/rigidity no organomegaly Psych: normal insight. normal affect MSK: no joint tenderness or swelling. Digits and nails normal, no deformity : kidney or bladder not palpable. Labs/imaging reviewed. Past medical history, past surgical history, family history, social history, allergy reviewed and noted as below Family hx: no hx of CKD. Rest non-contributory Objective - Vital Signs/Intake and Output Vital Signs (last 24 hours): Temp Pulse Resp BP Pulse Ox 98.0 F 100 H 18 122/79 96 10/02/18 06:00 10/02/18 12:18 10/02/18 06:00 10/02/18 12:18 10/02/18 06:00 Intake and Output: 10/02/18 10/02/18 06:59 18:59 Intake Total 120 Output Total 200 Balance -80 - Medications Medications: Current Medications Acetylcysteine (Acetylcysteine 20%) 4 ml IH BIDRESP BLANK Last Admin: 10/02/18 10:09 Dose: 4 ml Albuterol/Ipratropium (Duoneb 3 Mg/0.5 Mg (3 Ml) Ud) 3 ml IH Q6H BLANK Last Admin: 10/02/18 10:09 Dose: 3 ml Amlodipine Besylate (Norvasc) 10 mg PO DAILY [facility] Last Admin: 10/02/18 12:17 Dose: 10 mg Arformoterol Tartrate (Brovana) 15 mcg IH [id number] [facility] Last Admin: 09/25/18 08:03 Dose: 15 mcg Artificial Tears (Refresh Opth Soln) 0.3 ml OU Q6 PRN PRN Reason: Dry eyes Last Admin: 09/27/18 09:45 Dose: 1 drop Atenolol (Tenormin) 12.5 mg PO DAILY [facility] Budesonide (Pulmicort Respules) 1 mg IH [id number] [facility] Last Admin: 10/02/18 10:09 Dose: 1 mg Colchicine (Colocrys) 0.6 mg PO DAILY [facility] Last Admin: 10/02/18 12:17 Dose: 0.6 mg Ergocalciferol (Drisdol 50,000 Intl Units Cap) 1 cap PO Q7D [facility] Last Admin: 09/25/18 13:50 Dose: 1 cap Famotidine (Pepcid) 20 mg PO DAILY [facility] Last Admin: 10/02/18 12:20 Dose: 20 mg Heparin Sodium (Porcine) (Heparin) 5,000 units SC Q8 [facility]; Protocol Last Admin: 10/02/18 06:30 Dose: 5,000 units Hydralazine HCl (Apresoline) 25 mg PO Q4 PRN PRN Reason: SYS >170 OR ALBERTO >110 Hydralazine HCl (Apresoline) 50 mg PO BID [facility] Last Admin: 10/02/18 12:18 Dose: 50 mg Ipratropium [place] (Atrovent) 0.5 mg IH [id number] PRN PRN Reason: Shortness of Breath Last Admin: 09/26/18 11:40 Dose: 0.5 mg Levalbuterol HCl (Xopenex) 0.63 mg IH Q2H PRN PRN Reason: sob/wheezing Last Admin: 09/26/18 11:40 Dose: 0.63 mg Losartan Potassium (Cozaar) 100 mg PO DAILY [facility] Last Admin: 10/02/18 12:18 Dose: 100 mg Montelukast Sodium (Singulair) 10 mg PO HS [facility] Last Admin: 10/01/18 23:21 Dose: 10 mg Nystatin (Nystatin Oral Susp) 5 ml PO QID [facility] Last Admin: 10/02/18 12:19 Dose: 5 ml Prednisone (Prednisone Tab) 10 mg PO DAILY [facility] Last Admin: 10/02/18 12:20 Dose: 10 mg - Labs Labs: 09/29/18 06:35 09/29/18 06:35
[2018-10-02] MEDS: Ergocalciferol 50,000 Intl Units Cap PO SCH (15:48)
--- NOTE | 2018-10-03 04:51 | PN ---
DATE: 10/02/2018 SUBJECTIVE: The patient is in bed, in no acute distress, nontoxic. PHYSICAL EXAMINATION: VITAL SIGNS: Temperature is 97, blood pressure is 100/50, respiratory rate of 18. HEENT: Unremarkable. NECK: Supple. LUNGS: Have decreased breath sounds. HEART: Normal S1, S2. ABDOMEN: Soft, nontender. Laboratory examination is noted. ASSESSMENT AND PLAN: This is a 73-year-old male with history of steroid-dependent chronic obstructive pulmonary disease, asthma, hypertension, and gout, and who is now with ____ hypoxic respiratory failure with chronic obstructive pulmonary disease and asthma and serous and acute kidney injury, history of gout. Currently, the patient has completed a course of doxycycline. Review of orders reveals the patient to be off of antibiotics. The patient is on prednisone. We will follow closely with you. Malvin Bear MD
--- NOTE | 2018-10-03 06:24 | PN ---
DATE: 10/02/2018 SUBJECTIVE: The patient is a 73-year-old male. The patient was seen and examined at bedside on 10/02/2018. Looking comfortable. Having breakfast. No fever. No chills. No nausea, vomiting, or diarrhea. No hematuria or hematochezia. No swelling of the legs. No chest pain or palpitation. No headache or dizziness. PHYSICAL EXAMINATION: VITAL SIGNS: Temperature 97.1, pulse 91, respiratory rate 20, blood pressure 102/70, and pulse oximetry 98. HEENT: Head, normocephalic and atraumatic. Eyes, PERRLA. Extraocular movements are intact. Conjunctivae clear. Nose patent. Mucous membranes moist. NECK: Supple. No carotid bruit. No JVD or thyromegaly. CHEST: Bilaterally symmetrical. HEART: S1 and S2 positive. LUNGS: Clear to auscultation. ABDOMEN: Soft. Bowel sounds present. No organomegaly. EXTREMITIES: No edema. No cyanosis. NEUROLOGIC: The patient is awake, alert. Moving all four extremities. No focal deficits. MEDICATIONS: DuoNeb, allopurinol, Xanax, Norvasc, Brovana, artificial tears, Pulmicort, colchicine, Pepcid, hydralazine, atorvastatin, Cozaar, and Singulair. LABORATORY DATA: White blood cells 14, hemoglobin 15.4, hematocrit 47.2, and platelets 84. Sodium 141, potassium 4.4, BUN 32, creatinine 0.7, and glucose 123. ASSESSMENT AND PLAN: Mr. Jeffry Denson is a 73-year-old male, my private patient with multiple medical problems, leukocytosis, thrombocytosis, renal insufficiency, hyperglycemia, has steroid dependency, chronic obstructive lung disease, steroid-induced psychosis, asthma, hypertension, gouty arthritis, shortness of breath secondary to chronic obstructive pulmonary disease, obstructive pulmonary disease on my evaluation, getting treatment, tapering dose of steroid. Discussion done with Dr. Coughlin and nurse practitioner. Repeat laboratories. I reviewed . Discussion done with the patient's nursing staff. We will follow. Mary Roper MD [facility] # [id number]
[2018-10-03] MEDS: Acetylcysteine 20% Inhal Soln (4ml) IH SCH ×2 (07:43→21:16)
[2018-10-03] MEDS: Budesonide 0.5 mg/2 ml Inhal Susp UD IH SCH ×2 (07:44→21:17)
[2018-10-03 07:45] LABS: EOS % 0.1 % (1.5-5.0); GRAN % 92.1 % (50.0-68.0); HEMOGLOBIN 14.1 g/dL (14.0-18.0); LYMPH # 0.7 (1.2-3.4); LYMPH % 3.4 % (22.0-35.0); MEAN CELL VOLUME 94.4 fl (80.0-105.0); MEAN CORPUSCULAR HEMOGLOBIN 30.4 pg (25.0-35.0); MEAN CORPUSCULAR HGB CONC 32.2 g/dl (31.0-37.0); MONO # 0.9 (0.1-0.6); MONO % 4.4 % (1.0-6.0); PLATELET COUNT 101 10^3/uL (120.0-450.0); RBC 4.64 10^6/uL (3.5-6.1); RED CELL DISTRIBUTION WIDTH 12.7 % (11.5-14.5)
[2018-10-03 08:10] LABS: BLOOD UREA NITROGEN 42 mg/dL (7-21); CALCIUM 8.8 mg/dL (8.4-10.5); GFR NON-AFRICAN AMERICAN > 60
[2018-10-03 08:20] LABS: FREE T4 1.97 ng/dL (0.78-2.19)
[2018-10-03 08:43] LABS: LYMPHOCYTE 3 % (22.0-35.0); MONOCYTE 4 % (1.0-6.0)
[2018-10-03 08:44] LABS: NEUTROPHIL 93 % (50.0-70.0)
[2018-10-03 09:16] LABS: T3 0.85 ng/mL (0.97-1.69)
--- NOTE | 2018-10-03 10:57 | CP.PCM.PN ---
Subjective - Date & Time of Evaluation Date of Evaluation: 10/03/18 Time of Evaluation: 07:25 - Subjective Subjective: Awake, alert, no distress Reason for consultation: Cardiac evaluation of tachycardia,history of asthma and COPD, gouty arthritis,hypertension and COPD. Seen and examined by me and Dr. Warner Objective - Vital Signs/Intake and Output Vital Signs (last 24 hours): Temp Pulse Resp BP Pulse Ox 98.1 F 93 H 20 103/58 L 96 10/03/18 06:00 10/03/18 06:00 10/03/18 06:00 10/03/18 06:00 10/03/18 06:00 Intake and Output: 10/03/18 10/03/18 06:59 18:59 Output Total 100 Balance -100 - Medications Medications: Current Medications Acetylcysteine (Acetylcysteine 20%) 4 ml IH BIDRESP [facility] Last Admin: 10/03/18 07:43 Dose: 4 ml Albuterol/Ipratropium (Duoneb 3 Mg/0.5 Mg (3 Ml) Ud) 3 ml IH Q6H PRN PRN Reason: Wheezing Amlodipine Besylate (Norvasc) 10 mg PO DAILY [facility] Last Admin: 10/02/18 12:17 Dose: 10 mg Arformoterol Tartrate (Brovana) 15 mcg IH [id number] [facility] Last Admin: 09/25/18 08:03 Dose: 15 mcg Artificial Tears (Refresh Opth Soln) 0.3 ml OU Q6 PRN PRN Reason: Dry eyes Last Admin: 09/27/18 09:45 Dose: 1 drop Atenolol (Tenormin) 12.5 mg PO DAILY [facility] Last Admin: 10/02/18 15:52 Dose: Not Given Budesonide (Pulmicort Respules) 1 mg IH [id number] [facility] Last Admin: 10/03/18 07:44 Dose: 1 mg Colchicine (Colocrys) 0.6 mg PO DAILY [facility] Last Admin: 10/02/18 12:17 Dose: 0.6 mg Ergocalciferol (Drisdol 50,000 Intl Units Cap) 1 cap PO Q7D [facility] Last Admin: 10/02/18 15:48 Dose: 1 cap Famotidine (Pepcid) 20 mg PO DAILY [facility] Last Admin: 10/02/18 12:20 Dose: 20 mg Heparin Sodium (Porcine) (Heparin) 5,000 units SC Q8 [facility]; Protocol Last Admin: 10/03/18 05:59 Dose: 5,000 units Hydralazine HCl (Apresoline) 25 mg PO Q4 PRN PRN Reason: SYS >170 OR ALBERTO >110 Hydralazine HCl (Apresoline) 50 mg PO BID [facility] Last Admin: 10/02/18 18:58 Dose: 50 mg Ipratropium [place] (Atrovent) 0.5 mg IH [id number] PRN PRN Reason: Shortness of Breath Last Admin: 09/26/18 11:40 Dose: 0.5 mg Levalbuterol HCl (Xopenex) 0.63 mg IH Q2H PRN PRN Reason: sob/wheezing Last Admin: 09/26/18 11:40 Dose: 0.63 mg Losartan Potassium (Cozaar) 100 mg PO DAILY [facility] Last Admin: 10/02/18 12:18 Dose: 100 mg Montelukast Sodium (Singulair) 10 mg PO HS [facility] Last Admin: 10/02/18 21:40 Dose: 10 mg Nystatin (Nystatin Oral Susp) 5 ml PO QID [facility] Last Admin: 10/02/18 22:59 Dose: 5 ml - Labs Labs: 10/03/18 07:00 10/03/18 07:00 - Constitutional Appears: Non-toxic, No Acute Distress - Head Exam Head Exam: NORMAL INSPECTION, NORMOCEPHALIC - Eye Exam Eye Exam: Normal appearance Pupil Exam: NORMAL ACCOMODATION - ENT Exam ENT Exam: Mucous Membranes Moist, Normal Exam - Respiratory Exam Respiratory Exam: Decreased Breath Sounds, NORMAL BREATHING PATTERN - Cardiovascular Exam Cardiovascular Exam: +S1, +S2 - GI/Abdominal Exam GI & Abdominal Exam: Soft, Normal Bowel Sounds - Extremities Exam Extremities Exam: Full ROM, Normal Capillary Refill - Neurological Exam Neurological Exam: Alert, Awake, Oriented x3 - Psychiatric Exam Psychiatric exam: Normal Affect, Normal Mood - Skin Skin Exam: Dry, Normal Color, Warm Assessment and Plan - Assessment and Plan (Free Text) Assessment: A 73 year old who came in the ER due to shortness of breath, exacerbation of asthma/cOPD. 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 Stabilized and heart rate has been on the 80's and 90's and transferred to Medical/Surgical unit. Yesterday heart rate started going up to the 110's thus cardiac consult was called to evaluate tachycardia.Recent echo on 09/22/18 showed LVEF 57%, T ransmitral doppler flow pattern Grade I, mild aortic valve stenosis Refusing CPAP/BIPAP at night.Tachycardia -started Atenolol 12.5 mg daily. Plan: Denies shortness of breath, comfortable,no distress Tachycardia started Atenolol, heart rate now 90's to 100's. Will monitor heart rate day or two and adjust Atenolol accordingly Blood pressure controlled On Norvasc 10 mg daily,Hydralazine 50 mg BID,Cozaar 100 mg daily, Prednisone 10 mg daily Continue nebulizer treatment Continue current medications Continue current treatment Replenished low potassium Chart reviewed Will follow up Plan and treatment discussed with Dr. Warner
[2018-10-03] MEDS ORDERED: Potassium Chloride 20 mEq ER Tab PO STA (11:03)
[2018-10-03] MEDS: Nystatin 100,000 Units/ml Oral Susp 5 ml UD PO SCH ×4 (11:41→21:47)
--- NOTE | 2018-10-03 15:11 | PN ---
DATE: 10/03/2018 SUBJECTIVE: The patient is in bed, in no acute distress. PHYSICAL EXAMINATION: GENERAL: Temperature is 98, blood pressure is 103/50, respiratory rate of 18. Examination of HEENT is unremarkable. NECK: Supple. LUNGS: Have decreased breath sounds. HEART: Normal S1 and S2. ABDOMEN: Soft, nontender. LABORATORY EXAMINATION: Reveals the patient's white count of 20,000, hemoglobin of 14. Chemistries reveal a BUN of 42, creatinine of 1.1. Urinalysis is noted. Serology is noted. Microbiology is reviewed. Review of orders reveals the patient to be off antibiotics. ASSESSMENT AND PLAN: A 73-year-old with a history of steroid-dependent chronic obstructive lung disease, asthma, hypertension, gout, admitted with hypoxic respiratory failure, chronic obstructive lung disease, asthma and acute kidney injury and history of gout and currently off antibiotics, afebrile. The patient is at risk for developing nosocomial infections. The patient is clinically stable at this time. Malvin Bear MD
--- NOTE | 2018-10-04 01:52 | PN ---
DATE: 10/03/2018 SUBJECTIVE: He is lying in the bed, sleepy, arousable. Night was unremarkable without any cough or sputum production. No vomiting, hematuria, or diarrhea. No leg pain or leg swelling. OBJECTIVE: GENERAL: In no acute distress. VITAL SIGNS: Temperature is 98, heart rate 97, respiratory rate is 18, blood pressure 104/59, blood pressure dropped down yesterday to 75 systolic. HEENT: Moist mucous membranes. No ulcer or thrush noted. NECK: Supple. No JVD. LUNGS: Have fair airflow with some rhonchi. HEART: S1, S2. ABDOMEN: Soft, nontender. No organomegaly. EXTREMITIES: No edema. NEUROLOGIC: Sleepy, arousable. Follows simple commands. MEDICATIONS: Mucomyst 20% inhaled twice a day, hydralazine 25 mg every 4 hours p.r.n., Atrovent inhaled every 6 hours, Brovana inhaled twice a day, colchicine 0.6 mg daily, Cozaar 100 mg daily, vitamin D 50,000 units every 7 days, DuoNeb every 6 hours p.r.n., heparin 5000 units subcu every 8 hours, nystatin 5 mL 4 times daily, Pepcid 20 mg daily, Pulmicort inhaled twice a day, Singulair 10 mg daily, Tenormin 12.5 mg daily, Xopenex inhaled every 2 hours p.r.n. Also on hydralazine 50 mg twice a day, Norvasc 10 mg daily. LABORATORY DATA: Showed hemoglobin of 14.1, hematocrit 43.8, WBC 20,000, platelet count is 101. Sodium 142, potassium 3.2, chloride 105, bicarbonate 33, BUN 42, creatinine 1.1, glucose 98, calcium is 8.8, phosphorus 3.3, magnesium 2.5. Microbiology, blood culture, nasal culture, there is no growth. IMPRESSION AND PLAN: Status post respiratory failure, chronic obstructive lung disease, suspected sleep apnea syndrome, severe gout, steroid dependent, probably have a component of adrenal insufficiency, history of steroid cause psychosis, ALLERGIC TO MULTIPLE MEDICATIONS, family demanding to cut down the steroids but I am afraid with adrenal insufficiency, he may become hypertensive. We will at least given prednisone 5 mg daily and watch closely even if we need to discontinue in couple of days. Continue inhaled bronchodilator. Continue colchicine, allopurinol. Gastric and deep venous thrombosis prophylaxis. Fall precaution. May benefit from rehab. Thank you, and we will follow with you. Morgan Coughlin MD
--- NOTE | 2018-10-04 04:02 | PN ---
DATE: 10/03/2018 SUBJECTIVE: The patient was seen and examined at the bedside on 10/03/2018. Sitting on the chair, feeling better. No fever. No chills. No headache. No dizziness. No cough, gouty arthritis is better. PHYSICAL EXAMINATION: VITAL SIGNS: Temperature 98.1, pulse 93, respiratory rate 20, blood pressure 103/58, pulse oximetry 96%. HEENT: Head normocephalic, atraumatic. Eyes PERRLA. Extraocular muscles intact. Conjunctivae clear. Nose patent. Mucous membrane moist. NECK: Supple. No carotid bruit. No JVD or thyromegaly. CHEST: Bilaterally symmetrical. HEART: S1 and S2 positive. LUNGS: Clear to auscultation. ABDOMEN: Soft, bowel sounds positive. No organomegaly. EXTREMITIES: No edema. No cyanosis. NEUROLOGICAL: The patient is awake, alert. Moving all four extremities. No focal deficits. MEDICATIONS: Tylenol, DuoNeb, Norvasc, Brovana, artificial tears, Tenormin, Pulmicort, colchicine, Pepcid, , hydralazine, Atrovent, Xopenex, Cozaar, Singulair, oral suspension. LABORATORY DATA: White blood cells 20, hemoglobin 14.1, hematocrit 43.8, platelets 101. Sodium 140, potassium 3.2, BUN 42, creatinine 1.1, glucose 98. ASSESSMENT AND PLAN: Mr. Jeffry Denson is a 73-year-old male with leukocytosis, thrombocytopenia, hypokalemia, increased BUN came with exacerbation of asthma, history of asthma, chronic obstructive pulmonary disease, gouty arthritis, hypertension post rapid response for tachycardia rate of 150 to 160 admitted to the intensive care unit, stabilized. The patient was actually intubated, extubated; improved and transferred to medical floor. On the floor, he states he is getting sometimes steroid-induced psychosis; got tapering dose of steroids, seen by the hospital medicine director and feeder catcher; refusing continuous positive airway pressure and bilevel positive airway pressure at night. No shortness of breath at that moment. Tachycardia, started atenolol, heart rate dropped to 90-110. Blood pressure is controlled. Gastrointestinal and deep venous thrombosis prophylaxes. Seen by Dr. Bear and Dr. Alana Carson's nurse practitioner. The patient is at risk for developing nosocomial infection, meanwhile continue present treatment, repeat labs. Appreciated Dr. Coughlin, Dr. Devine, Dr. Bear's input. We will follow up. Mary Roper MD
--- NOTE | 2018-10-04 06:59 | CP.PCM.PN ---
<Umesh Lin - Last Filed: 10/04/18 11:52> Subjective - Date & Time of Evaluation Date of Evaluation: 10/04/18 Time of Evaluation: 06:57 - Subjective Subjective: ID progress note for Dr. Galarza/Dr. Bear service - Herbert Lin PGY3 Patient seen and examined at bedside. No acute overnight events or new complaints reported. Denies cp, palpiations, SOB. Off abx. Objective - Vital Signs/Intake and Output Vital Signs (last 24 hours): Temp Pulse Resp BP Pulse Ox 97.8 F 97 H 20 104/60 96 10/03/18 22:00 10/03/18 14:00 10/03/18 22:00 10/03/18 22:00 10/03/18 22:00 - Medications Medications: Current Medications Acetylcysteine (Acetylcysteine 20%) [address] [facility] Last Admin: 10/03/18 21:16 Dose: 4 ml Albuterol/Ipratropium (Duoneb 3 Mg/0.5 Mg (3 Ml) Ud) 3 ml IH Q6H PRN PRN Reason: Wheezing Arformoterol Tartrate (Brovana) [id number] [facility] Last Admin: 09/25/18 08:03 Dose: 15 mcg Artificial Tears (Refresh Opth Soln) 0.3 ml OU Q6 PRN PRN Reason: Dry eyes Last Admin: 09/27/18 09:45 Dose: 1 drop Atenolol (Tenormin) 12.[address] [facility] Last Admin: 10/03/18 11:44 Dose: 12.5 mg Budesonide (Pulmicort Respules) [id number] [facility] Last Admin: 10/03/18 21:17 Dose: 1 mg Colchicine (Colocrys) 0.[address] [facility] Last Admin: 10/03/18 11:40 Dose: 0.6 mg Ergocalciferol (Drisdol 50,000 Intl Units Cap) [address] [facility] Last Admin: 10/02/18 15:48 Dose: 1 cap Famotidine (Pepcid) [address] [facility] Last Admin: 10/03/18 11:44 Dose: 20 mg Heparin Sodium (Porcine) (Heparin) 5,[address] [facility]; Protocol Last Admin: 10/04/18 05:32 Dose: 5,000 units Hydralazine HCl (Apresoline) 25 mg PO Q4 PRN PRN Reason: SYS >170 OR ALBERTO >110 Ipratropium [place] (Atrovent) 0.5 mg IH [id number] PRN PRN Reason: Shortness of Breath Last Admin: 09/26/18 11:40 Dose: 0.5 mg Levalbuterol HCl (Xopenex) 0.63 mg IH Q2H PRN PRN Reason: sob/wheezing Last Admin: 09/26/18 11:40 Dose: 0.63 mg Losartan Potassium (Cozaar) [address] [facility] Last Admin: 10/03/18 11:43 Dose: 100 mg Montelukast Sodium (Singulair) [address] [facility] Last Admin: 10/03/18 21:47 Dose: 10 mg Nystatin (Nystatin Oral Susp) [address] [facility] Last Admin: 10/03/18 21:47 Dose: 5 ml Prednisone (Prednisone Tab) [address] [facility] - Labs Labs: 10/03/18 07:00 10/03/18 07:00 - Constitutional Appears: No Acute Distress - Head Exam Head Exam: ATRAUMATIC, NORMAL INSPECTION, NORMOCEPHALIC - Eye Exam Eye Exam: EOMI, PERRL - ENT Exam ENT Exam: Mucous Membranes Moist - Respiratory Exam Respiratory Exam: Clear to Ausculation Bilateral. absent: Rales, Rhonchi, Wheezes - Cardiovascular Exam Cardiovascular Exam: RRR, +S1, +S2. absent: Clicks, Gallop, JVD, Rubs - GI/Abdominal Exam GI & Abdominal Exam: Soft. absent: Distended, Firm, Guarding, Rigid, Tenderness, Rebound - Neurological Exam Neurological Exam: Alert, Awake, Oriented x3 - Psychiatric Exam Psychiatric exam: Normal Affect, Normal Mood - Skin Skin Exam: Dry, Intact, Normal Color, Warm Assessment and Plan - Assessment and Plan (Free Text) Plan: 73yo male with history of steroid-dependent COPD/asthma, hypertension and gout presents with shortness of breath secondary to COPD/asthma exacerbation complicated by allergic drug reaction to azithromycin 1. resolved acute hypoxemic respiratory failure secondary to COPD/asthma exacerbation 2. Allergic drug reaction to azithromycin 3. SIRS without clear infectious etiology 4. AMPARO, resolved 5. Hx of gout -Remains afebrile -leukocytosis likely secondary to steroid administration -Completed course of doxycyline for COPD exacerbation -Blood cultures negative -Rapid flu negative -CXR revealed no active disease -Procalcitonin negative -continue present management as per medicine team -Patient is at risk of developing nosocomial infections Patient seen and case discussed/reviewed with attending, Dr. Galarza <Deejay Galarza - Last Filed: 10/04/18 21:22> Objective - Vital Signs/Intake and Output Vital Signs (last 24 hours): Temp Pulse Resp BP Pulse Ox 98.8 F 90 18 101/62 94 L 10/04/18 10:45 10/04/18 19:00 10/04/18 14:00 10/04/18 19:00 10/04/18 14:00 Intake and Output: 10/04/18 10/05/18 18:59 06:59 Intake Total 120 Output Total 300 Balance -180 - Medications Medications: Current Medications Acetylcysteine (Acetylcysteine 20%) [address] [facility] Last Admin: 10/04/18 07:53 Dose: 4 ml Albuterol/Ipratropium (Duoneb 3 Mg/0.5 Mg (3 Ml) Ud) 3 ml IH Q6H PRN PRN Reason: Wheezing Last Admin: 10/04/18 07:53 Dose: 3 ml Arformoterol Tartrate (Brovana) [id number] [facility] Last Admin: 09/25/18 08:03 Dose: 15 mcg Artificial Tears (Refresh Opth Soln) 0.3 ml OU Q6 PRN PRN Reason: Dry eyes Last Admin: 09/27/18 09:45 Dose: 1 drop Atenolol (Tenormin) 12.[address] [facility] Last Admin: 10/04/18 19:00 Dose: Not Given Budesonide (Pulmicort Respules) [id number] [facility] Last Admin: 10/04/18 07:53 Dose: 1 mg Colchicine (Colocrys) 0.[address] [facility] Last Admin: 10/04/18 10:58 Dose: 0.6 mg Ergocalciferol (Drisdol 50,000 Intl Units Cap) [address] [facility] Last Admin: 10/02/18 15:48 Dose: 1 cap Famotidine (Pepcid) [address] [facility] Last Admin: 10/04/18 10:58 Dose: 20 mg Heparin Sodium (Porcine) (Heparin) 5,[address] [facility]; Protocol Last Admin: 10/04/18 14:07 Dose: 5,000 units Hydralazine HCl (Apresoline) 25 mg PO Q4 PRN PRN Reason: SYS >170 OR ALBERTO >110 Ipratropium [place] (Atrovent) 0.5 mg IH [id number] PRN PRN Reason: Shortness of Breath Last Admin: 09/26/18 11:40 Dose: 0.5 mg Levalbuterol HCl (Xopenex) 0.63 mg IH Q2H PRN PRN Reason: sob/wheezing Last Admin: 09/26/18 11:40 Dose: 0.63 mg Losartan Potassium (Cozaar) [address] [facility] Last Admin: 10/04/18 11:01 Dose: Not Given Montelukast Sodium (Singulair) [address] [facility] Last Admin: 10/03/18 21:47 Dose: 10 mg Nystatin (Nystatin Oral Susp) [address] [facility] Last Admin: 10/04/18 17:36 Dose: 5 ml Prednisone (Prednisone Tab) [address] [facility] Last Admin: 10/04/18 10:58 Dose: 5 mg - Labs Labs: 10/04/18 07:15 10/04/18 07:15 Assessment and Plan - Assessment and Plan (Free Text) Plan: Infectious diseases Attending Physician Attestation Patient seen and examined, discussed with medical surgery nurse. I have reviewed the patient's history of present illness, past medical, social, personal and family histories, pertinent physical exam findings, course so far in this hospital admission, pertinent laboratory and imaging results. I agree with the above findings, assessment and plan. In addition, continue to monitor off antibiotics - patient is S/P treatment for acute COPD exacerbation.
[2018-10-04 07:41] LABS: HEMOGLOBIN 13.3 g/dL (14.0-18.0); MEAN CELL VOLUME 95.9 fl (80.0-105.0); MEAN CORPUSCULAR HEMOGLOBIN 30.2 pg (25.0-35.0); MEAN CORPUSCULAR HGB CONC 31.4 g/dl (31.0-37.0); MEAN PLATELET VOLUME 10.3 fl (7.0-11.0); RBC 4.41 10^6/uL (3.5-6.1); RED CELL DISTRIBUTION WIDTH 12.7 % (11.5-14.5); WHITE BLOOD COUNT 11.7 10^3/uL (4.5-11.0)
--- NOTE | 2018-10-04 07:41 | CP.PCM.PN ---
Subjective - Date & Time of Evaluation Date of Evaluation: 10/04/18 Time of Evaluation: 06:35 - Subjective Subjective: Lying in bed, awake, alert, no distress Reason for consultation and follow up: Cardiac evaluation of tachycardia,history of asthma and COPD, gouty arthritis,hypertension and COPD. Seen and examined by me and Dr. Rosales Objective - Vital Signs/Intake and Output Vital Signs (last 24 hours): Temp Pulse Resp BP Pulse Ox 97.8 F 97 H 20 104/60 96 10/03/18 22:00 10/03/18 14:00 10/03/18 22:00 10/03/18 22:00 10/03/18 22:00 - Medications Medications: Current Medications Acetylcysteine (Acetylcysteine 20%) 4 ml IH BIDRESP [facility] Last Admin: 10/03/18 21:16 Dose: 4 ml Albuterol/Ipratropium (Duoneb 3 Mg/0.5 Mg (3 Ml) Ud) 3 ml IH Q6H PRN PRN Reason: Wheezing Arformoterol Tartrate (Brovana) 15 mcg IH [id number] [facility] Last Admin: 09/25/18 08:03 Dose: 15 mcg Artificial Tears (Refresh Opth Soln) 0.3 ml OU Q6 PRN PRN Reason: Dry eyes Last Admin: 09/27/18 09:45 Dose: 1 drop Atenolol (Tenormin) 12.5 mg PO DAILY [facility] Last Admin: 10/03/18 11:44 Dose: 12.5 mg Budesonide (Pulmicort Respules) 1 mg IH [id number] [facility] Last Admin: 10/03/18 21:17 Dose: 1 mg Colchicine (Colocrys) 0.6 mg PO DAILY [facility] Last Admin: 10/03/18 11:40 Dose: 0.6 mg Ergocalciferol (Drisdol 50,000 Intl Units Cap) 1 cap PO Q7D [facility] Last Admin: 10/02/18 15:48 Dose: 1 cap Famotidine (Pepcid) 20 mg PO DAILY [facility] Last Admin: 10/03/18 11:44 Dose: 20 mg Heparin Sodium (Porcine) (Heparin) 5,000 units SC Q8 [facility]; Protocol Last Admin: 10/04/18 05:32 Dose: 5,000 units Hydralazine HCl (Apresoline) 25 mg PO Q4 PRN PRN Reason: SYS >170 OR ALBERTO >110 Ipratropium [place] (Atrovent) 0.5 mg IH [id number] PRN PRN Reason: Shortness of Breath Last Admin: 09/26/18 11:40 Dose: 0.5 mg Levalbuterol HCl (Xopenex) 0.63 mg IH Q2H PRN PRN Reason: sob/wheezing Last Admin: 09/26/18 11:40 Dose: 0.63 mg Losartan Potassium (Cozaar) 100 mg PO DAILY [facility] Last Admin: 10/03/18 11:43 Dose: 100 mg Montelukast Sodium (Singulair) 10 mg PO HS [facility] Last Admin: 10/03/18 21:47 Dose: 10 mg Nystatin (Nystatin Oral Susp) 5 ml PO QID [facility] Last Admin: 10/03/18 21:47 Dose: 5 ml Prednisone (Prednisone Tab) 5 mg PO DAILY [facility] - Labs Labs: 10/03/18 07:00 10/03/18 07:00 - Constitutional Appears: Non-toxic, No Acute Distress - Head Exam Head Exam: NORMAL INSPECTION, NORMOCEPHALIC - Eye Exam Eye Exam: Normal appearance Pupil Exam: NORMAL ACCOMODATION - ENT Exam ENT Exam: Mucous Membranes Moist, Normal Exam - Respiratory Exam Respiratory Exam: Decreased Breath Sounds, Clear to Ausculation Bilateral, NORMAL BREATHING PATTERN - Cardiovascular Exam Cardiovascular Exam: +S1, +S2 - GI/Abdominal Exam GI & Abdominal Exam: Soft, Normal Bowel Sounds - Extremities Exam Extremities Exam: Full ROM, Normal Capillary Refill - Neurological Exam Neurological Exam: Alert, Awake, Oriented x3 - Psychiatric Exam Psychiatric exam: Normal Affect, Normal Mood - Skin Skin Exam: Dry, Normal Color, Warm Assessment and Plan - Assessment and Plan (Free Text) Assessment: A 73 year old who came in the ER due to shortness of breath, exacerbation of asthma/cOPD. 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 Stabilized and heart rate has been on the 80's and 90's and transferred to Medical/Surgical unit. Yesterday heart rate started going up to the 110's thus cardiac consult was called to evaluate tachycardia.Recent echo on 09/22/18 showed LVEF 57%, Transmitral doppler flow pattern Grade I, mild aortic valve stenosis Refusing CPAP/BIPAP at night.Tachycardia -started Atenolol. Heart rate controlled. Plan: Denies shortness of breath, comfortable,no distress Heart rate controlled Blood pressure controlled On Norvasc 10 mg daily,Hydralazine 50 mg BID,Cozaar 100 mg daily, Prednisone 10 mg daily, Atenolol 12.5 mg daily Continue nebulizer treatment Continue current medications Continue current treatment Discharge planning Chart reviewed Will follow up Plan and treatment discussed with Dr. Rosales
[2018-10-04] MEDS: Acetylcysteine 20% Inhal Soln (4ml) IH SCH ×2 (07:53→21:25)
[2018-10-04] MEDS: Budesonide 0.5 mg/2 ml Inhal Susp UD IH SCH ×2 (07:53→21:25)
[2018-10-04] MEDS: Albuterol-Ipratrop 3 mg / 0.5 (3 ml) UD IH PRN (07:53)
[2018-10-04 08:00] LABS: BLOOD UREA NITROGEN 33 mg/dL (7-21); CALCIUM 8.7 mg/dL (8.4-10.5); GFR NON-AFRICAN AMERICAN > 60
--- NOTE | 2018-10-04 08:08 | PN ---
DATE: 10/02/2018 PULMONARY PROGRESS NOTE REFERRING PHYSICIAN: Dr. Roper. SUBJECTIVE: The patient is sitting up in chair at bedside. No acute distress noted. The patient reports feeling well today, did not use CPAP machine last night. No headache, rhinitis, cough, shortness of breath, chest pain, abdominal pain, nausea, vomiting, diarrhea, leg pain, leg swelling reported. OBJECTIVE: VITAL SIGNS: , pulse 100, temperature 98.0, oxygen saturation 96% on room air. GENERAL: No acute distress. HEENT: Moist mucous membranes. Mallampati score 4. Crowded airway. NECK: Supple. No JVD. LUNGS: Acute rhonchi bilaterally, no audible wheeze. CARDIOVASCULAR: S1, S2 audible. ABDOMEN: Soft, nontender. No distention. No organomegaly. EXTREMITIES: No bilateral edema. NEUROLOGIC: Awake, alert, verbally responsive, able to follow simple commands. LABORATORY DATA: Reviewed. No new labs. Blake Moss APN Morgan Coughlin MD
--- NOTE | 2018-10-04 08:17 | CON ---
DATE: 10/02/2018 Addendum to the consult which already had been dictated by Yamileth Loyola. LOCATION: The patient is in room 576, bed 2. REASON FOR CONSULTATION: He has been exacerbation of COPD, hypertension, gouty arthritis, found to have sinus tachycardia. The patient was admitted with exacerbation of COPD, found to have sinus tachycardia. So, consult has been requested. The patient is sitting in chair. Denies chest pain or palpitation. He states his breathing is getting better. The patient's heart rate goes up to 120, sinus tachycardia. The patient had echo on 09/22/2018 with normal EF of 57%, mild aortic valve stenosis. The patient has underlying sinus tachycardia due to underlying exacerbation of COPD, so we will add atenolol 12.5 mg p.o. today and daily and we will continue other medication as ordered and this atenolol will try to help the sinus tachycardia and we will monitor the heart rate. If needed, then we will go to atenolol 25 mg daily. The patient's TSH on 09/25/2018 was less than 0.02 and total T3 on 09/26/2018 was 0.65 which is low, so I will repeat TSH, free T4 and T3 again to rule out thyrotoxicosis and we will follow. Morgan Warner MD
--- NOTE | 2018-10-04 08:29 | PN ---
DATE: 10/03/2018 LOCATION: The patient in room 576, bed 2. The patient's detailed note has been already written by Yamileth Loyola. The patient whose has known COPD was admitted with exacerbation of COPD and asthma with shortness of breath and was found to have tachycardia. We started atenolol 12.5 mg yesterday. With that, the heart rate today is around 96. The patient had an echo on 09/22/2018, which showed normal EF of 57%, grade I diastolic dysfunction and mild aortic stenosis. So, we will continue atenolol 12.5 mg p.o. daily to control the heart rate. In the meantime, we will continue present therapy as mentioned in the detailed note of Yamileth Loyola. Morgan Warner MD
[2018-10-04] MEDS: Nystatin 100,000 Units/ml Oral Susp 5 ml UD PO SCH ×4 (10:58→21:31)
--- NOTE | 2018-10-04 15:35 | PN ---
DATE: 10/04/2018 PULMONARY PROGRESS NOTE REFERRING PHYSICIAN: Mary Roper MD SUBJECTIVE: The patient is sitting up in armchair; at bedside, is present. The patient reports feeling well. No overnight events reported. No acute distress. No headache, rhinitis, shortness of breath, chest pain, cough, abdominal pain, nausea, vomiting, dysuria, leg pain, or leg swelling reported. The patient reports he did not use CPAP machine last night. OBJECTIVE: VITAL SIGNS: Blood pressure 132/72, pulse 84, temperature 98 and oxygen saturation 97%. GENERAL: No acute distress. HEENT: Moist mucous membranes. No ulcer or thrush noted. NECK: Supple. No JVD. LUNGS: A few rhonchi, scattered. CARDIOVASCULAR: S1, S2 audible. ABDOMEN: Soft and nontender. No distention. No organomegaly. EXTREMITIES: No bilateral lower extremity edema. NEUROLOGIC: Awake, alert, verbal, follows simple commands. LABORATORY DATA: Reviewed. WBC 11.7, RBC 4.41, hemoglobin 13.1, hematocrit 42.3, platelets 101. Sodium 141, potassium 4.4, chloride 107, carbon dioxide 34, anion gap 4, BUN 33, creatinine 1.1, GFR greater than 60, random glucose 92. Calcium 8.7. MEDICATIONS: Reviewed. Mucomyst 4 mL inhalations twice a day, DuoNeb 3 mL inhalation every 6 hours p.r.n., Brovana 15 mcg inhalation every 12 hours, Artificial Tears every 6 hours p.r.n., atenolol 12 mg p.o. daily, Pulmicort 1 mg inhalation every 12 hours, colchicine 0.6 mg p.o. daily, ergocalciferol one cap p.o. as needed, Pepcid 20 mg p.o. daily, heparin 5000 units subcu every 8 hours, hydralazine 25 mg p.o. every 4 hours p.r.n. systolic greater than 170, Ativan 0.5 mg inhalation every 6 hours p.r.n., Xopenex 0.63 mg inhalation every two hours p.r.n., Cozaar 100 mg p.o. daily and Singulair 10 mg p.o. at bedtime, nystatin oral suspension 5 mL p.o. four times a day, prednisone 5 mL p.o. daily. IMPRESSION AND PLAN: Status post respiratory failure, chronic obstructive lung disease, suspected sleep apnea syndrome, severe flare, steroid dependent, probably has a component of adrenal insufficiency, history of steroid psychosis. Allergy to multiple medications. I spoke with at bedside today and discussed reason for low dose steroid to be continued and discussed adrenal insufficiency and verbalized understanding and agreed with plan to continue prednisone 5 mg daily and monitor the patient. Continue inhaled bronchodilators, continue colchicine, allopurinol, gastric prophylaxis, deep venous thrombosis prophylaxis. Fall precautions. The patient may benefit from subacute rehab. This patient was seen and examined with Dr. Coughlin. Discussed assessment and plan as described above. Thank you for this consult and we will follow with you. Blake Moss APN Morgan Coughlin MD
--- NOTE | 2018-10-04 20:38 | PN ---
DATE: 10/04/2018 REASON FOR CONSULTATION: Cardiac evaluation for sinus tachycardia, asthma, gout, hypertension, COPD. SUBJECTIVE: The patient denies any chest pain, shortness of breath, or any palpitations. This note is in addition to dictated by nurse practitioner. Now the patient's heart rate has stabilized in the 80s to 90s. Transferred to the medical floor. Echo shows ejection fraction of 57%, history of COPD. RECOMMENDATIONS: Continue Norvasc. Continue hydralazine. Continue Cozaar. The patient is on atenolol 12.5, we will increase to 12.5 b.i.d. and we will follow with you. Thank you Dr. Roper for providing us the opportunity in taking care of the patient, Jeffry Denson. Further recommendations per hospital course. We will follow. This note is in addition to dictated by nurse practitioner, Yamileth Loyola. Morgan Rosales MD
--- NOTE | 2018-10-04 23:26 | PN ---
DATE: 10/04/2018 SUBJECTIVE: The patient is a 73-year-old male. The patient was seen and examined at the bedside on 10/04/2018, looking comfortable, sitting on the chair, feeling better, wants to go home. No fever. No chills. Cough is better. Shortness of breath is better. No event happened overnight. No hematuria or hematochezia. PHYSICAL EXAMINATION VITAL SIGNS: Blood pressure 130/70, pulse 80, temperature 98.6, oxygen saturation 97%. HEENT: Head: Normocephalic, atraumatic. Eyes: PERRLA. Extraocular muscles are intact. Conjunctivae clear. Nose patent. NECK: Supple. No carotid bruit. No JVD or thyromegaly. CHEST: Bilaterally symmetrical. HEART: S1 and S2, positive. LUNGS: A few rhonchi, scattered. ABDOMEN: Soft, nontender. No organomegaly. EXTREMITIES: No edema. No cyanosis. NEUROLOGICAL: The patient is awake, alert, and follows simple commands. LABORATORY DATA: White blood cells 11.7, hemoglobin 13.1, hematocrit 42.3, platelets 101. Sodium 141, potassium 4.4, BUN 33, creatinine 1.1, calcium 8.7. ASSESSMENT AND PLAN: Mr. Jeffry Denson is a 73-year-old male with multiple medical problems, status post respiratory failure, was intubated, then extubated; chronic obstructive pulmonary disease, suspected sleep apnea syndrome; steroid dependency; gouty arthritis, rule out adrenal insufficiency; history of steroid-induced psychosis. Pulmonary spoke to the patient's ; all questions answered. We will continue bronchodilators, colchicine, allopurinol. Gastric prophylaxis. Deep vein thrombosis prophylaxis. Continue Xopenex, Cozaar, Singulair, nystatin oral suspension. The patient has a history of oral candidiasis, improved with nystatin oral suspension. Eating well. Need subacute rehabilitation. Plan to get the patient to the subacute rehabilitation. We will follow up. Mary Roper MD
--- NOTE | 2018-10-05 07:06 | CP.PCM.PN ---
<Umesh Lin - Last Filed: 10/05/18 11:32> Subjective - Date & Time of Evaluation Date of Evaluation: 10/05/18 Time of Evaluation: 07:05 - Subjective Subjective: ID progress note for Dr. Galarza/Dr. Bear service - Herbert Lin PGY3 Patient seen and examined at bedside. No acute overnight events or new complaints reported. Denies cp, palpiations, SOB. Off abx. Objective - Vital Signs/Intake and Output Vital Signs (last 24 hours): Temp Pulse Resp BP Pulse Ox 97.6 F 93 H 20 103/60 97 10/04/18 22:00 10/04/18 22:00 10/04/18 22:00 10/04/18 22:00 10/04/18 22:00 Intake and Output: 10/05/18 10/05/18 06:59 18:59 Output Total 400 Balance -400 - Medications Medications: Current Medications Acetylcysteine (Acetylcysteine 20%) 4 ml IH BIDRESP [facility] Last Admin: 10/04/18 21:25 Dose: Not Given Albuterol/Ipratropium (Duoneb 3 Mg/0.5 Mg (3 Ml) Ud) 3 ml IH Q6H PRN PRN Reason: Wheezing Last Admin: 10/04/18 07:53 Dose: 3 ml Arformoterol Tartrate (Brovana) 15 mcg IH [id number] [facility] Last Admin: 09/25/18 08:03 Dose: 15 mcg Artificial Tears (Refresh Opth Soln) 0.3 ml OU Q6 PRN PRN Reason: Dry eyes Last Admin: 09/27/18 09:45 Dose: 1 drop Atenolol (Tenormin) 12.5 mg PO BID [facility] Last Admin: 10/04/18 19:00 Dose: Not Given Budesonide (Pulmicort Respules) 1 mg IH [id number] [facility] Last Admin: 10/04/18 21:25 Dose: 1 mg Colchicine (Colocrys) 0.6 mg PO DAILY [facility] Last Admin: 10/04/18 10:58 Dose: 0.6 mg Ergocalciferol (Drisdol 50,000 Intl Units Cap) 1 cap PO Q7D [facility] Last Admin: 10/02/18 15:48 Dose: 1 cap Famotidine (Pepcid) 20 mg PO DAILY [facility] Last Admin: 10/04/18 10:58 Dose: 20 mg Heparin Sodium (Porcine) (Heparin) 5,000 units SC Q8 [facility]; Protocol Last Admin: 10/05/18 05:13 Dose: 5,000 units Hydralazine HCl (Apresoline) 25 mg PO Q4 PRN PRN Reason: SYS >170 OR ALBERTO >110 Ipratropium Sle[place] (Atrovent) 0.5 mg IH [id number] PRN PRN Reason: Shortness of Breath Last Admin: 09/26/18 11:40 Dose: 0.5 mg Levalbuterol HCl (Xopenex) 0.63 mg IH Q2H PRN PRN Reason: sob/wheezing Last Admin: 09/26/18 11:40 Dose: 0.63 mg Losartan Potassium (Cozaar) 100 mg PO DAILY [facility] Last Admin: 10/04/18 11:01 Dose: Not Given Montelukast Sodium (Singulair) 10 mg PO HS [facility] Last Admin: 10/04/18 21:32 Dose: 10 mg Nystatin (Nystatin Oral Susp) 5 ml PO QID [facility] Last Admin: 10/04/18 21:31 Dose: 5 ml Prednisone (Prednisone Tab) 5 mg PO DAILY [facility] Last Admin: 10/04/18 10:58 Dose: 5 mg - Labs Labs: 10/04/18 07:15 10/04/18 07:15 - Constitutional Appears: No Acute Distress - Head Exam Head Exam: ATRAUMATIC, NORMAL INSPECTION, NORMOCEPHALIC - Eye Exam Eye Exam: EOMI, PERRL - ENT Exam ENT Exam: Mucous Membranes Moist - Respiratory Exam Respiratory Exam: absent: Rales, Rhonchi, Wheezes - Cardiovascular Exam Cardiovascular Exam: RRR, +S1, +S2. absent: Gallop, JVD, Rubs - GI/Abdominal Exam GI & Abdominal Exam: Soft. absent: Distended, Firm, Guarding, Rigid, Ten derness, Rebound - Neurological Exam Neurological Exam: Alert, Awake, CN II-XII Intact, Oriented x3 - Psychiatric Exam Psychiatric exam: Normal Affect, Normal Mood - Skin Skin Exam: Dry, Intact, Normal Color, Warm Assessment and Plan - Assessment and Plan (Free Text) Plan: 73yo male with history of steroid-dependent COPD/asthma, hypertension and gout presents with shortness of breath secondary to COPD/asthma exacerbation complicated by allergic drug reaction to azithromycin 1. resolved acute hypoxemic respiratory failure secondary to COPD/asthma exacerbation 2. Allergic drug reaction to azithromycin 3. SIRS without clear infectious etiology 4. AMPARO, resolved 5. Hx of gout -Remains afebrile -leukocytosis likely secondary to steroid administration -Completed course of doxycyline for COPD exacerbation -Blood cultures negative -Rapid flu negative -CXR revealed no active disease -Procalcitonin negative -continue present management as per medicine team -Patient is at risk of developing nosocomial infections Patient seen and case discussed/reviewed with attending, Dr. Galarza <Deejay Galarza - Last Filed: 10/05/18 23:04> Objective - Vital Signs/Intake and Output Vital Signs (last 24 hours): Temp Pulse Resp BP Pulse Ox 98.5 F 82 18 110/65 96 10/05/18 22:03 10/05/18 22:03 10/05/18 22:03 10/05/18 22:03 10/05/18 22:03 Intake and Output: 10/05/18 10/06/18 18:59 06:59 Intake Total 120 Balance 120 - Medications Medications: Current Medications Acetylcysteine (Acetylcysteine 20%) 4 ml IH BIDRESP [facility] Last Admin: 10/05/18 19:42 Dose: 4 ml Albuterol/Ipratropium (Duoneb 3 Mg/0.5 Mg (3 Ml) Ud) 3 ml IH Q6H PRN PRN Reason: Wheezing Last Admin: 10/05/18 19:42 Dose: 3 ml Arformoterol Tartrate (Brovana) 15 mcg IH [id number] [facility] Last Admin: 09/25/18 08:03 Dose: 15 mcg Artificial Tears (Refresh Opth Soln) 0.3 ml OU Q6 PRN PRN Reason: Dry eyes Last Admin: 09/27/18 09:45 Dose: 1 drop Atenolol (Tenormin) 12.5 mg PO BID [facility] Last Admin: 10/05/18 17:45 Dose: Not Given Budesonide (Pulmicort Respules) 1 mg IH [id number] [facility] Last Admin: 10/05/18 19:42 Dose: 1 mg Colchicine (Colocrys) 0.6 mg PO DAILY [facility] Last Admin: 10/05/18 09:27 Dose: 0.6 mg Ergocalciferol (Drisdol 50,000 Intl Units Cap) 1 cap PO Q7D [facility] Last Admin: 10/02/18 15:48 Dose: 1 cap Famotidine (Pepcid) 20 mg PO DAILY [facility] Last Admin: 10/05/18 09:27 Dose: 20 mg Heparin Sodium (Porcine) (Heparin) 5,000 units SC Q8 [facility]; Protocol Last Admin: 10/05/18 21:37 Dose: 5,000 units Hydralazine HCl (Apresoline) 25 mg PO Q4 PRN PRN Reason: SYS >170 OR ALBERTO >110 Levalbuterol HCl (Xopenex) 0.63 mg IH Q2H PRN PRN Reason: sob/wheezing Last Admin: 10/05/18 07:54 Dose: 0.63 mg Losartan Potassium (Cozaar) 100 mg PO DAILY [facility] Last Admin: 10/05/18 12:17 Dose: Not Given Nystatin (Nystatin Oral Susp) 5 ml PO QID [facility] Last Admin: 10/05/18 21:37 Dose: 5 ml Prednisone (Prednisone Tab) 5 mg PO DAILY [facility] Last Admin: 10/05/18 09:27 Dose: 5 mg Tamsulosin HCl (Flomax) 0.4 mg PO DAILY [facility] - Labs Labs: 10/04/18 07:15 10/04/18 07:15 Assessment and Plan - Assessment and Plan (Free Text) Plan: Infectious diseases Attending Physician Attestation Patient seen and examined, discussed with medical research associate. I have reviewed the patient's history of present illness, past medical, social, personal and family histories, pertinent physical exam findings, course so far in this hospital admission, pertinent laboratory and imaging results. I agree with the above findings, assessment and plan. In addition, patient is S/P treatment for acute COPD exacerbation. Continue to monitor off antibiotics.
--- NOTE | 2018-10-05 07:23 | CP.PCM.PN ---
Subjective - Date & Time of Evaluation Date of Evaluation: 10/05/18 Time of Evaluation: 06:30 - Subjective Subjective: Awake, no distress, Lying in bed, awake Reason for consultation and follow up: Cardiac evaluation of tachycardia,history of asthma and COPD, gouty arthritis,hypertension and COPD. Seen and examined by me and Dr. Rosales Objective - Vital Signs/Intake and Output Vital Signs (last 24 hours): Temp Pulse Resp BP Pulse Ox 97.6 F 93 H 20 103/60 97 10/04/18 22:00 10/04/18 22:00 10/04/18 22:00 10/04/18 22:00 10/04/18 22:00 Intake and Output: 10/05/18 10/05/18 06:59 18:59 Output Total 400 Balance -400 - Medications Medications: Current Medications Acetylcysteine (Acetylcysteine 20%) 4 ml IH BIDRESP [facility] Last Admin: 10/04/18 21:25 Dose: Not Given Albuterol/Ipratropium (Duoneb 3 Mg/0.5 Mg (3 Ml) Ud) 3 ml IH Q6H PRN PRN Reason: Wheezing Last Admin: 10/04/18 07:53 Dose: 3 ml Arformoterol Tartrate (Brovana) 15 mcg IH [id number] [facility] Last Admin: 09/25/18 08:03 Dose: 15 mcg Artificial Tears (Refresh Opth Soln) 0.3 ml OU Q6 PRN PRN Reason: Dry eyes Last Admin: 09/27/18 09:45 Dose: 1 drop Atenolol (Tenormin) 12.5 mg PO BID [facility] Last Admin: 10/04/18 19:00 Dose: Not Given Budesonide (Pulmicort Respules) 1 mg IH [id number] [facility] Last Admin: 10/04/18 21:25 Dose: 1 mg Colchicine (Colocrys) 0.6 mg PO DAILY [facility] Last Admin: 10/04/18 10:58 Dose: 0.6 mg Ergocalciferol (Drisdol 50,000 Intl Units Cap) 1 cap PO Q7D [facility] Last Admin: 10/02/18 15:48 Dose: 1 cap Famotidine (Pepcid) 20 mg PO DAILY [facility] Last Admin: 10/04/18 10:58 Dose: 20 mg Heparin Sodium (Porcine) (Heparin) 5,000 units SC Q8 [facility]; Protocol Last Admin: 10/05/18 05:13 Dose: 5,000 units Hydralazine HCl (Apresoline) 25 mg PO Q4 PRN PRN Reason: SYS >170 OR ALBERTO >110 Ipratropium [place] (Atrovent) 0.5 mg IH [id number] PRN PRN Reason: Shortness of Breath Last Admin: 09/26/18 11:40 Dose: 0.5 mg Levalbuterol HCl (Xopenex) 0.63 mg IH Q2H PRN PRN Reason: sob/wheezing Last Admin: 09/26/18 11:40 Dose: 0.63 mg Losartan Potassium (Cozaar) 100 mg PO DAILY [facility] Last Admin: 10/04/18 11:01 Dose: Not Given Montelukast Sodium (Singulair) 10 mg PO HS [facility] Last Admin: 10/04/18 21:32 Dose: 10 mg Nystatin (Nystatin Oral Susp) 5 ml PO QID [facility] Last Admin: 10/04/18 21:31 Dose: 5 ml Prednisone (Prednisone Tab) 5 mg PO DAILY [facility] Last Admin: 10/04/18 10:58 Dose: 5 mg - Labs Labs: 10/04/18 07:15 10/04/18 07:15 - Constitutional Appears: Non-toxic, No Acute Distress - Head Exam Head Exam: NORMAL INSPECTION, NORMOCEPHALIC - Eye Exam Eye Exam: Normal appearance Pupil Exam: NORMAL ACCOMODATION - ENT Exam ENT Exam: Mucous Membranes Moist, Normal Exam - Respiratory Exam Respiratory Exam: Decreased Breath Sounds, NORMAL BREATHING PATTERN - Cardiovascular Exam Cardiovascular Exam: +S1, +S2 - GI/Abdominal Exam GI & Abdominal Exam: Soft, Normal Bowel Sounds - Exam Additional comments: box catheter - Extremities Exam Extremities Exam: Full ROM, Normal Capillary Refill - Neurological Exam Neurological Exam: Alert, Awake, Oriented x3 - Psychiatric Exam Psychiatric exam: Normal Affect, Normal Mood - Skin Skin Exam: Dry, Normal Color, Warm Assessment and Plan - Assessment and Plan (Free Text) Assessment: A 73 year old who came in the ER due to shortness of breath, exacerbation of asthma/cOPD. History of asthma and COPD, gouty arthritis,hypertension.Post DECK HAND for tachycardia rate of 150's to 160's, thus admitted to ICU. Stabilized and heart rate has been on the 80's and 90's and transferred to Medical/Surgical unit. Yesterday heart rate started going up to the 110's thus cardiac consult was called to evaluate tachycardia.Recent echo on 09/22/18 showed LVEF 57%, Transmitral doppler flow pattern Grade I, mild aortic valve stenosis Refusing CPAP/BIPAP at night.Tachycardia -started Atenolol. Heart rate controlled. Plan: Urinary retention yesterday, box catheter inserted Urology consult Denies shortness of breath, comfortable,no distress Heart rate controlled Blood pressure controlled Cardiac status stable On Norvasc 10 mg daily,Hydralazine 50 mg BID,Cozaar 100 mg daily, Prednisone 10 mg daily, Atenolol 12.5 mg daily Continue nebulizer treatment Continue current medications Continue current treatment Discharge planning, subacute placement Chart reviewed Will follow up Plan and treatment discussed with Dr. Rosales
[2018-10-05] MEDS: Budesonide 0.5 mg/2 ml Inhal Susp UD IH SCH ×2 (07:54→19:42)
[2018-10-05] MEDS: Levalbuterol 0.63 MG/3 ML Inhal Soln UD IH PRN (07:54)
[2018-10-05] MEDS: Acetylcysteine 20% Inhal Soln (4ml) IH SCH ×2 (07:54→19:42)
[2018-10-05] MEDS: Nystatin 100,000 Units/ml Oral Susp 5 ml UD PO SCH ×4 (09:27→21:37)
--- NOTE | 2018-10-05 12:44 | PN ---
PULMONARY PROGRESS NOTE DATE: 10/05/2018 REFERRING PHYSICIAN: Dr. Roper SUBJECTIVE: The patient is sitting up in armchair at bedside. No overnight events reported. The patient reports feeling well today, did not use CPAP machine last night. No headache, rhinitis, shortness of breath, chest pain, cough, abdominal pain, nausea, vomiting, dysuria, diarrhea, leg pain, or leg swelling reported. OBJECTIVE: GENERAL: No acute distress. VITAL SIGNS: Blood pressure 106/59, pulse 96, temperature 98.1 and oxygenation 95% on room air. HEENT: Moist mucous membranes. NECK: Supple. No JVD. LUNGS: A few scattered rhonchi. CARDIOVASCULAR: S1 and S2, audible. ABDOMEN: Soft and nontender. No distention. No organomegaly. EXTREMITIES: No bilateral lower extremity edema. NEUROLOGIC: Awake, alert and verbal. Follows simple commands. LABORATORY DATA: Reviewed. No new labs. MEDICATIONS: Reviewed. Mucomyst 4 mL inhalations twice a day, DuoNeb 3 mL inhalation every 6 hours p.r.n., Brovana 15 mcg inhalation every 12 hours, Artificial Tears every 6 hours p.r.n., atenolol 12.5 mg twice a day, Pulmicort 1 mg inhalation every 12 hours, colchicine 0.6 mg p.o. daily, ergocalciferol one cap every 7 days [id number] units, Pepcid 20 mg daily, heparin 5000 units subcu every 8 hours, hydralazine 25 mg p.o. every 4 hours p.r.n. systolic blood pressure greater than 170, Ativan 0.5 mg inhalation every 6 hours p.r.n., Xopenex 0.60 mg inhalation every two hours p.r.n., Cozaar 100 mg p.o. daily and Singulair 10 mg p.o. at bedtime, nystatin oral suspension 5 mL p.o. four times a day and prednisone 5 mL p.o. daily. IMPRESSION AND PLAN: Status post respiratory failure, chronic obstructive lung disease, suspected sleep apnea syndrome, steroid dependent, has a history of steroid psychosis, we suspect of the adrenal insufficiency. The patient has been on steroids for a long time. We want to continue prednisone 5 mg daily for now and slowly we will discontinue in about 2 weeks steroid therapy. Continue inhaled bronchodilators, continue colchicine, allopurinol, gastric prophylaxis, deep venous thrombosis prophylaxis, fall precautions, sleep apnea precautions, head of bed 45 degrees. Continue to encourage continuous positive airway pressure use at bedtime. This patient was seen and examined with Dr. Coughlin. Discussed assessment and plan as described above. Thank you for this consult and we will follow with you. Blake Moss APN Morgan Coughlin MD [facility]
--- NOTE | 2018-10-05 12:48 | CP.PCM.PN ---
Subjective - Date & Time of Evaluation Date of Evaluation: 10/05/18 Time of Evaluation: 12:46 - Subjective Subjective: Nephrology Consultation Note: Assessment: stable Acute Kidney Injury (N17.9) likely hemodynamic and pre-renal state due to diuresis, ATN: improved with IVF hyperkalemia, hypernatremia combined respi and metabolic acidosis acute on chronic hypercapnic respi failure with COPD/asthma exacerbation Vit D def urine retention Plan No acute need for renal replacement therapy at this time. AMPARO resolved Maintain hemodynamics stable. Avoid hypotension. HTN controlled at present Monitor Input/Output, daily weights and renal function with basic metabolic panel on vit D weekly started flomax. urology eval Dose meds/antibiotics for improved GFR. Glycemic control Further work up/management as per primary team Thanks for allowing me to participate in care of your patient. Will follow patient with you. Please call if any Qs. had d/w team Dr Ming [place] Office: [phone] Reason for consult: Acute Kidney Injury HPI: Pt is a 73 M with hx of copd/asthma presented with complaints of SOB and intubated for acute respi failure. renal consult for AMPARO. Denies OTC/herbal meds or NSAIDs No recent iodinated contrast exposure. Noted obvious episodes of low BP (80s). pt unable to provide any hx pt with AKIs in past with cr up to 1.3 which improved intermittently to 0.8-0.9 cr 1.3 at presentation ROS: noted overnight events. feels better. SOB better. no urine complaints but required box for retention Physical Examination: General Appearance: Comfortable, in no acute respiratory distress, better appearing. Vitals reviewed and noted as below Head; Atraumatic, normocephalic ENT: extubated EYES: Pupils are equal, round and reactive to light accommodation. Eye muscles and extraocular movement intact. Sclera is anicteric. Neck; supple no lymphadenopathy, no thyromegaly or bruit Lungs: Normal respiratory rate/effort. Breath sounds bilateral b/l improved and clearer Heart: Normal rate. s1s2 normal. No rub or gallop. Extremities: no edema. No varicose veins Neurological: Patient is awake alert follow commands Skin: Warm and dry. Normal turgor. No rash. Palpitation: Normal elasticity for age Abdomen: Abdomen is soft. Bowel sounds +. There is no abdominal tenderness, no guarding/rigidity no organomegaly Psych: normal insight. normal affeac MSK: no joint tenderness or swelling. Digits and nails normal, no deformity : kidney or bladder not palpable. has box Labs/imaging reviewed. Past medical history, past surgical history, family history, social history, allergy reviewed and noted as below Family hx: no hx of CKD. Rest non-contributory Objective - Vital Signs/Intake and Output Vital Signs (last 24 hours): Temp Pulse Resp BP Pulse Ox 98.1 F 96 H 20 106/59 L 95 10/05/18 09:29 10/05/18 12:18 10/04/18 22:00 10/05/18 12:18 10/05/18 09:29 Intake and Output: 10/05/18 10/05/18 06:59 18:59 Output Total 400 Balance -400 - Medications Medications: Current Medications Acetylcysteine (Acetylcysteine 20%) 4 ml IH BIDRESP [facility] Last Admin: 10/05/18 07:54 Dose: 4 ml Albuterol/Ipratropium (Duoneb 3 Mg/0.5 Mg (3 Ml) Ud) 3 ml IH Q6H PRN PRN Reason: Wheezing Last Admin: 10/04/18 07:53 Dose: 3 ml Arformoterol Tartrate (Brovana) 15 mcg IH [id number] [facility] Last Admin: 09/25/18 08:03 Dose: 15 mcg Artificial Tears (Refresh Opth Soln) 0.3 ml OU Q6 PRN PRN Reason: Dry eyes Last Admin: 09/27/18 09:45 Dose: 1 drop Atenolol (Tenormin) 12.5 mg PO BID [facility] Last Admin: 10/05/18 12:18 Dose: Not Given Budesonide (Pulmicort Respules) 1 mg IH [id number] [facility] Last Admin: 10/05/18 07:54 Dose: 1 mg Colchicine (Colocrys) 0.6 mg PO DAILY [facility] Last Admin: 10/05/18 09:27 Dose: 0.6 mg Ergocalciferol (Drisdol 50,000 Intl Units Cap) 1 cap PO Q7D [facility] Last Admin: 10/02/18 15:48 Dose: 1 cap Famotidine (Pepcid) 20 mg PO DAILY [facility] Last Admin: 10/05/18 09:27 Dose: 20 mg Heparin Sodium (Porcine) (Heparin) 5,000 units SC Q8 [facility]; Protocol Last Admin: 10/05/18 05:13 Dose: 5,000 units Hydralazine HCl (Apresoline) 25 mg PO Q4 PRN PRN Reason: SYS >170 OR ALBERTO >110 Ipratropium [place] (Atrovent) 0.5 mg IH [id number] PRN PRN Reason: Shortness of Breath Last Admin: 09/26/18 11:40 Dose: 0.5 mg Levalbuterol HCl (Xopenex) 0.63 mg IH Q2H PRN PRN Reason: sob/wheezing Last Admin: 10/05/18 07:54 Dose: 0.63 mg Losartan Potassium (Cozaar) 100 mg PO DAILY [facility] Last Admin: 10/05/18 12:17 Dose: Not Given Montelukast Sodium (Singulair) 10 mg PO HS [facility] Last Admin: 10/04/18 21:32 Dose: 10 mg Nystatin (Nystatin Oral Susp) 5 ml PO QID [facility] Last Admin: 10/05/18 09:27 Dose: 5 ml Prednisone (Prednisone Tab) 5 mg PO DAILY [facility] Last Admin: 10/05/18 09:27 Dose: 5 mg - Labs Labs: 10/04/18 07:15 10/04/18 07:15
--- NOTE | 2018-10-05 17:42 | PN ---
DATE: 10/05/2018 REASON FOR CONSULTATION: Followup, cardiac evaluation, tachycardia, history of asthma, COPD, possible COPD exacerbation, gouty arthritis, hypertension. SUBJECTIVE: The patient denied any chest pain, shortness of breath, or any palpitation. This note is in addition to dictated by our nurse practitioner, Yamileth Loyola APN. The patient initially admitted with acute excerebration of COPD and tachycardia as outpatient and now the patient's heart rate is stable. Echo on 09/22/2018 shows ejection fraction of 57% and now the heart rate has been 90; better controlled. RECOMMENDATION: Yesterday atenolol was increased to 12.5 p.o. b.i.d., his heart rate is well controlled. If needed, we can increase to 25 p.o. b.i.d. For now, we will continue 12.5. We will follow with you. Thank you Dr. Roper for providing us the opportunity in taking care of the patient, Jeffry Denson. Morgan Rosales MD
[2018-10-05] MEDS: Albuterol-Ipratrop 3 mg / 0.5 (3 ml) UD IH PRN (19:42)
[2018-10-05 22:10] VITALS: RESP 18
--- NOTE | 2018-10-06 01:57 | PN ---
DATE: 10/05/2018 SUBJECTIVE: The patient is a 73-year-old male. The patient was seen and examined at the bedside on 10/05/2018, looking comfortable. No fever. No chills. No hematuria or hematochezia. No swelling of the legs. No chest pain or palpitation. Having Alamo catheter. PHYSICAL EXAMINATION: VITAL SIGNS: Temperature 98.2, pulse 90, blood pressure 110/50, oxygenation 95% on room air. HEENT: Head normocephalic, atraumatic. Eyes, PERRLA. Extraocular muscles are intact. Conjunctivae clear. Nose patent. Mucous membranes moist. NECK: Supple. No carotid bruits. No JVD or thyromegaly. CHEST: Bilaterally symmetrical. HEART: S1 and S2, positive. LUNGS: A few scattered rhonchi. ABDOMEN: Soft. Nontender. No organomegaly. EXTREMITIES: Bilateral lower lobe edema. NEUROLOGIC: Awake and alert. Follows simple commands. LABORATORY DATA: We do not have new labs, but I reviewed the old labs. MEDICATIONS: Mucomyst, DuoNeb, Brovana, atenolol, Pulmicort, colchicine, vitamin D, Pepcid, heparin, Ativan, Xopenex, and Cozaar. ASSESSMENT AND PLAN: Mr. Jeffry Denson is a 73-year-old male with multiple medical problems, came with respiratory failure, was intubated and then extubated, chronic systolic lung disease, sleep apnea syndrome, steroid dependency, history of severe psychosis. The patient ____ for a long time. We will continue prednisone 5 mg. Continue inhaled bronchodilator, colchicine, gastrointestinal and deep vein thrombosis prophylaxis. The patient has Alamo catheter, has retention of the urine, Dr. Diaz has been consulted for, waiting for the input. He promised to see the patient today with the nursing staff. According to ____ patient has acute kidney injury that is hemodynamically and prerenal state due to diuresis; acute tubular necrosis, improved with IV fluid; hyperkalemia; hypernatremia, improved; respiratory and metabolic acidosis; acute on chronic hypercapnic respiratory failure with chronic obstructive pulmonary disease/asthma exacerbation; vitamin D deficiency. Continue controlling blood pressure. Monitoring input and output. Stared on Flomax by the urologist. Gastrointestinal and deep vein thrombosis prophylaxis. Repeat labs. We will follow up. Mary Roper MD [facility] # [id number]
--- NOTE | 2018-10-06 06:48 | CP.PCM.PN ---
<Umesh Lin - Last Filed: 10/06/18 11:26> Subjective - Date & Time of Evaluation Date of Evaluation: 10/06/18 Time of Evaluation: 06:46 - Subjective Subjective: ID progress note for Dr. Galarza/Dr. Bear service - Herbert Lin PGY3 Patient seen and examined at bedside. No acute overnight events or new complaints reported. Denies cp, palpiations, SOB. Off abx. Objective - Vital Signs/Intake and Output Vital Signs (last 24 hours): Temp Pulse Resp BP Pulse Ox 98.5 F 82 18 110/65 96 10/05/18 22:03 10/05/18 22:03 10/05/18 22:03 10/05/18 22:03 10/05/18 22:03 Intake and Output: 10/05/18 10/06/18 18:59 06:59 Intake Total 120 Output Total 650 Balance -530 - Medications Medications: Current Medications Acetylcysteine (Acetylcysteine 20%) 4 ml IH BIDRESP [facility] Last Admin: 10/05/18 19:42 Dose: 4 ml Albuterol/Ipratropium (Duoneb 3 Mg/0.5 Mg (3 Ml) Ud) 3 ml IH Q6H PRN PRN Reason: Wheezing Last Admin: 10/05/18 19:42 Dose: 3 ml Arformoterol Tartrate (Brovana) 15 mcg IH [id number] [facility] Last Admin: 09/25/18 08:03 Dose: 15 mcg Artificial Tears (Refresh Opth Soln) 0.3 ml OU Q6 PRN PRN Reason: Dry eyes Last Admin: 09/27/18 09:45 Dose: 1 drop Atenolol (Tenormin) 12.5 mg PO BID [facility] Last Admin: 10/05/18 17:45 Dose: Not Given Budesonide (Pulmicort Respules) 1 mg IH [id number] [facility] Last Admin: 10/05/18 19:42 Dose: 1 mg Colchicine (Colocrys) 0.6 mg PO DAILY [facility] Last Admin: 10/05/18 09:27 Dose: 0.6 mg Ergocalciferol (Drisdol 50,000 Intl Units Cap) 1 cap PO Q7D [facility] Last Admin: 10/02/18 15:48 Dose: 1 cap Famotidine (Pepcid) 20 mg PO DAILY [facility] Last Admin: 10/05/18 09:27 Dose: 20 mg Heparin Sodium (Porcine) (Heparin) 5,000 units SC Q8 [facility]; Protocol Last Admin: 10/05/18 21:37 Dose: 5,000 units Hydralazine HCl (Apresoline) 25 mg PO Q4 PRN PRN Reason: SYS >170 OR ALBERTO >110 Losartan Potassium (Cozaar) 100 mg PO DAILY [facility] Last Admin: 10/05/18 12:17 Dose: Not Given Nystatin (Nystatin Oral Susp) 5 ml PO QID [facility] Last Admin: 10/05/18 21:37 Dose: 5 ml Prednisone (Prednisone Tab) 5 mg PO DAILY [facility] Last Admin: 10/05/18 09:27 Dose: 5 mg Tamsulosin HCl (Flomax) 0.4 mg PO DAILY [facility] - Labs Labs: 10/04/18 07:15 10/04/18 07:15 - Constitutional Appears: No Acute Distress - Head Exam Head Exam: ATRAUMATIC, NORMAL INSPECTION, NORMOCEPHALIC - Eye Exam Eye Exam: EOMI, PERRL - ENT Exam ENT Exam: Mucous Membranes Moist - Respiratory Exam Respiratory Exam: absent: Rales, Rhonchi, Wheezes - Cardiovascular Exam Cardiovascular Exam: RRR, +S1, +S2. absent: Gallop, JVD, Rubs - GI/Abdominal Exam GI & Abdominal Exam: Soft. absent: Distended, Firm, Guarding, Rigid, Tenderness, Rebound - Neurological Exam Neurological Exam: Alert, Awake, CN II-XII Intact, Oriented x3 - Psychiatric Exam Psychiatric exam: Normal Affect, Normal Mood - Skin Skin Exam: Dry, Intact, Normal Color, Warm Assessment and Plan - Assessment and Plan (Free Text) Plan: 73yo male with history of steroid-dependent COPD/asthma, hypertension and gout presents with shortness of breath secondary to COPD/asthma exacerbation complicated by allergic drug reaction to azithromycin 1. resolved acute hypoxemic respiratory failure secondary to COPD/asthma exacerbation 2. Allergic drug reaction to azithromycin 3. SIRS without clear infectious etiology 4. AMPARO, resolved 5. subclinical hypothyroidism 6. Hx of gout -Remains afebrile -leukocytosis likely secondary to steroid administration -Completed course of doxycyline for COPD exacerbation -Blood cultures negative -Rapid flu negative -CXR revealed no active disease -Procalcitonin negative -continue present management as per medicine team -Patient is at risk of developing nosocomial infections Patient seen and case discussed/reviewed with attending, Dr. Galarza <Deejay Galarza - Last Filed: 10/06/18 20:29> Objective - Vital Signs/Intake and Output Vital Signs (last 24 hours): Temp Pulse Resp BP Pulse Ox 98.1 F 94 H 18 107/68 95 10/06/18 14:00 10/06/18 14:00 10/06/18 14:00 10/06/18 14:00 10/06/18 14:00 - Labs Labs: 10/04/18 07:15 10/04/18 07:15 Assessment and Plan - Assessment and Plan (Free Text) Plan: Infectious diseases Attending Physician Attestation Patient seen and examined, discussed with emergency medical services coordinator. I have reviewed the patient's history of present illness, past medical, social, personal and family histories, pertinent physical exam findings, course so far in this hospital admission, pertinent laboratory and imaging results. I agree with the above findings, assessment and plan. In addition, patient is S/P treatment for acute COPD exacerbation - continue to monitor off antibiotics.
--- NOTE | 2018-10-06 07:13 | CP.PCM.PN ---
Subjective - Date & Time of Evaluation Date of Evaluation: 10/06/18 Time of Evaluation: 06:45 - Subjective Subjective: Lying in bed, Awake, no distress, watching TV Reason for consultation and follow up: Cardiac evaluation of tachycardia,history of asthma and COPD, gouty arthritis,hypertension and COPD. Seen and examined by me and Dr. Rosales Objective - Vital Signs/Intake and Output Vital Signs (last 24 hours): Temp Pulse Resp BP Pulse Ox 98.5 F 82 18 110/65 96 10/05/18 22:03 10/05/18 22:03 10/05/18 22:03 10/05/18 22:03 10/05/18 22:03 Intake and Output: 10/06/18 10/06/18 06:59 18:59 Intake Total 120 Output Total 650 Balance -530 - Medications Medications: Current Medications Acetylcysteine (Acetylcysteine 20%) 4 ml IH BIDRESP [facility] Last Admin: 10/05/18 19:42 Dose: 4 ml Albuterol/Ipratropium (Duoneb 3 Mg/0.5 Mg (3 Ml) Ud) 3 ml IH Q6H PRN PRN Reason: Wheezing Last Admin: 10/05/18 19:42 Dose: 3 ml Arformoterol Tartrate (Brovana) 15 mcg IH [id number] [facility] Last Admin: 09/25/18 08:03 Dose: 15 mcg Artificial Tears (Refresh Opth Soln) 0.3 ml OU Q6 PRN PRN Reason: Dry eyes Last Admin: 09/27/18 09:45 Dose: 1 drop Atenolol (Tenormin) 12.5 mg PO BID [facility] Last Admin: 10/05/18 17:45 Dose: Not Given Budesonide (Pulmicort Respules) 1 mg IH [id number] [facility] Last Admin: 10/05/18 19:42 Dose: 1 mg Colchicine (Colocrys) 0.6 mg PO DAILY [facility] Last Admin: 10/05/18 09:27 Dose: 0.6 mg Ergocalciferol (Drisdol 50,000 Intl Units Cap) 1 cap PO Q7D [facility] Last Admin: 10/02/18 15:48 Dose: 1 cap Famotidine (Pepcid) 20 mg PO DAILY [facility] Last Admin: 10/05/18 09:27 Dose: 20 mg Heparin Sodium (Porcine) (Heparin) 5,000 units SC Q8 [facility]; Protocol Last Admin: 10/06/18 06:40 Dose: 5,000 units Hydralazine HCl (Apresoline) 25 mg PO Q4 PRN PRN Reason: SYS >170 OR ALBERTO >110 Losartan Potassium (Cozaar) 100 mg PO DAILY [facility] Last Admin: 10/05/18 12:17 Dose: Not Given Nystatin (Nystatin Oral Susp) 5 ml PO QID [facility] Last Admin: 10/05/18 21:37 Dose: 5 ml Prednisone (Prednisone Tab) 5 mg PO DAILY [facility] Last Admin: 10/05/18 09:27 Dose: 5 mg Tamsulosin HCl (Flomax) 0.4 mg PO DAILY [facility] - Labs Labs: 10/04/18 07:15 10/04/18 07:15 - Constitutional Appears: Non-toxic, No Acute Distress - Head Exam Head Exam: NORMAL INSPECTION, NORMOCEPHALIC - Eye Exam Eye Exam: Normal appearance Pupil Exam: NORMAL ACCOMODATION - ENT Exam ENT Exam: Mucous Membranes Moist, Normal Exam - Respiratory Exam Respiratory Exam: Clear to Ausculation Bilateral, NORMAL BREATHING PATTERN - Cardiovascular Exam Cardiovascular Exam: +S1, +S2 - GI/Abdominal Exam GI & Abdominal Exam: Soft, Normal Bowel Sounds - Exam Additional comments: box catheter - Extremities Exam Extremities Exam: Full ROM, Normal Capillary Refill - Neurological Exam Neurological Exam: Alert, Awake, Oriented x3 - Psychiatric Exam Psychiatric exam: Normal Affect, Normal Mood - Skin Skin Exam: Dry, Normal Color, Warm Assessment and Plan - Assessment and Plan (Free Text) Assessment: A 73 year old who came in the ER due to shortness of breath, exacerbation of asthma/cOPD. History of asthma and COPD, gouty arthritis,hypertension.Post [employer] for tachycardia rate of 150's to 160's, thus admitted to ICU. Stabilized and heart rate has been on the 80's and 90's and transferred to Medical/Surgical unit. Yesterday heart rate started going up to the 110's thus cardiac consult was called to evaluate tachycardia.Recent echo on 09/22/18 showed LVEF 57%, Transmitral doppler flow pattern Grade I, mild aortic valve stenosis Refusing CPAP/BIPAP at night.Tachycardia resolved, Heart rate controlled with Atenolol. Urinary retention, box catheter inserted. Urology consult and follow up. Plan: Denies shortness of breath, comfortable,no distress Heart rate controlled Blood pressure controlled Cardiac status stable Urinary retention , box catheter inserted Urology consult ,awaiting input Started on Flomax On Norvasc 10 mg daily,Hydralazine 50 mg BID,Cozaar 100 mg daily, Prednisone 10 mg daily, Atenolol 12.5 mg daily Continue nebulizer treatment Continue current medications Continue current treatment Chart reviewed Will follow up Plan and treatment discussed with Dr. Rosales
[2018-10-06] MEDS: Acetylcysteine 20% Inhal Soln (4ml) IH SCH (07:37)
[2018-10-06] MEDS: Budesonide 0.5 mg/2 ml Inhal Susp UD IH SCH (07:37)
[2018-10-06] MEDS: Albuterol-Ipratrop 3 mg / 0.5 (3 ml) UD IH PRN (07:38)
[2018-10-06] MEDS: Nystatin 100,000 Units/ml Oral Susp 5 ml UD PO SCH ×2 (10:59→15:02)
--- NOTE | 2018-10-06 12:57 | PN ---
DATE: 10/06/2018 PULMONARY PROGRESS NOTE REFERRING PHYSICIAN: Dr. Roper. SUBJECTIVE: The patient is sitting up in bed. No acute distress. Reports feeling well today. No overnight events reported. Reports he did not use BiPAP machine last night. OBJECTIVE: GENERAL: No acute distress. VITAL SIGNS: Blood pressure 106/65, pulse 78, temperature 97.7 and oxygen saturation 96 percent on room air. HEENT: Moist mucous membranes. NECK: Supple. No JVD. LUNGS: Few scattered rhonchi. CARDIOVASCULAR: S1 and S2 audible. ABDOMEN: Soft and nontender. No distention. No organomegaly. EXTREMITIES: No bilateral lower extremity edema. NEUROLOGICAL: Awake, alert and verbal. Follows simple commands. LABORATORY DATA: Reviewed. No new labs. MEDICATIONS: Reviewed. Mucomyst 4 mL inhalation twice a day, DuoNeb 3 mL inhalation every 6 hours as needed, Brovana 15 mcg inhalation every 12 hours, Artificial Tears as needed, atenolol 12.5 mg orally twice a day, Pulmicort 1 mg inhalation every 12 hours, colchicine 0.6 mg orally daily, ergocalciferol 50,000 units every 7 days, Pepcid 20 mg orally daily, heparin 5000 units subcutaneously every 8 hours, hydralazine 25 mg orally every 4 hours as needed systolic greater than 170, Cozaar 50 mg orally daily, nystatin 5 mL orally four times a day, prednisone 5 mg orally daily, Flomax 0.4 mg orally daily. IMPRESSION AND PLAN: Status post respiratory failure, chronic obstructive lung disease, suspected sleep apnea syndrome, steroid dependent. The patient has a history of steroid psychosis, we do suspect the patient to have adrenal insufficiency. Pulmonary point of view, continue prednisone 5 mg daily for now, we will continue to monitor and slowly discontinue steroid using about 2 weeks. Continue inhaled bronchodilators, continue colchicine, allopurinol, gastric prophylaxis, deep venous thrombosis prophylaxis, fall precautions, sleep apnea precautions. Continue to encourage continuous positive airway pressure use at bedtime. Head of bed elevated at 45 degrees. Spoke with nursing staff, the patient is possible discharge soon to subacute rehab. Spoke with . All questions answered. We do recommend the patient have full PFT on discharge and sleep study as outpatient. This patient was seen and examined with Dr. Coughlin. Discussed assessment and plan as described above. Thank you for this consult and we will follow with you. Blake Moss APN Morgan Coughlin MD [facility] # [id number] [facility]
[2018-10-06 14:51] VITALS: BP 107/68; PULSE 94; TEMP 98.1; O2SAT 95
--- NOTE | 2018-10-06 15:46 | CP.PCM.PN ---
Subjective - Date & Time of Evaluation Date of Evaluation: 10/06/18 Time of Evaluation: 15:45 - Subjective Subjective: Nephrology Consultation Note: Assessment: stable Acute Kidney Injury (N17.9) likely hemodynamic and pre-renal state due to diuresis, ATN: improved with IVF hyperkalemia, hypernatremia combined respi and metabolic acidosis acute on chronic hypercapnic respi failure with COPD/asthma exacerbation Vit D def urine retention Plan No acute need for renal replacement therapy at this time. AMPARO resolved Maintain hemodynamics stable. Avoid hypotension. HTN controlled at present. losartan lowered to 50 mg/d Monitor Input/Output, daily weights and renal function with basic metabolic panel on vit D weekly started flomax. urology eval Dose meds/antibiotics for improved GFR. Glycemic control Further work up/management as per primary team Thanks for allowing me to participate in care of your patient. Will follow patient with you. Please call if any Qs. had d/w team Dr Ming [place] Office: [phone] Reason for consult: Acute Kidney Injury HPI: Pt is a 73 M with hx of copd/asthma presented with complaints of SOB and intubated for acute respi failure. renal consult for AMPARO. Denies OTC/herbal meds or NSAIDs No recent iodinated contrast exposure. Noted obvious episodes of low BP (80s). pt unable to provide any hx pt with AKIs in past with cr up to 1.3 which improved intermittently to 0.8-0.9 cr 1.3 at presentation ROS: noted overnight events. feels better. SOB better. no urine complaints but required box for retention Physical Examination: General Appearance: Comfortable, in no acute respiratory distress, better appearing. Vitals reviewed and noted as below Head; Atraumatic, normocephalic ENT: extubated EYES: Pupils are equal, round and reactive to light accommodation. Eye muscles and extraocular movement intact. Sclera is anicteric. Neck; supple no lymphadenopathy, no thyromegaly or bruit Lungs: Normal respiratory rate/effort. Breath sounds bilateral b/l improved and clearer Heart: Normal rate. s1s2 normal. No rub or gallop. Extremities: no edema. No varicose veins Neurological: Patient is awake alert follow commands Skin: Warm and dry. Normal turgor. No rash. Palpitation: Normal elasticity for age Abdomen: Abdomen is soft. Bowel sounds +. There is no abdominal tenderness, no guarding/rigidity no organomegaly Psych: normal insight. normal affeac MSK: no joint tenderness or swelling. Digits and nails normal, no deformity : kidney or bladder not palpable. has box Labs/imaging reviewed. Past medical history, past surgical history, family history, social history, allergy reviewed and noted as below Family hx: no hx of CKD. Rest non-contributory Objective - Vital Signs/Intake and Output Vital Signs (last 24 hours): Temp Pulse Resp BP Pulse Ox 98.1 F 94 H 18 107/68 95 10/06/18 14:00 10/06/18 14:00 10/06/18 14:00 10/06/18 14:00 10/06/18 14:00 Intake and Output: 10/06/18 10/06/18 06:59 18:59 Intake Total 120 Output Total 650 Balance -530 - Medications Medications: Current Medications Acetylcysteine (Acetylcysteine 20%) 4 ml IH BIDRESP [facility] Last Admin: 10/06/18 07:37 Dose: 4 ml Albuterol/Ipratropium (Duoneb 3 Mg/0.5 Mg (3 Ml) Ud) 3 ml IH Q6H PRN PRN Reason: Wheezing Last Admin: 10/06/18 07:38 Dose: 3 ml Arformoterol Tartrate (Brovana) 15 mcg IH [id number] [facility] Last Admin: 09/25/18 08:03 Dose: 15 mcg Artificial Tears (Refresh Opth Soln) 0.3 ml OU Q6 PRN PRN Reason: Dry eyes Last Admin: 09/27/18 09:45 Dose: 1 drop Atenolol (Tenormin) 12.5 mg PO BID [facility] Last Admin: 10/06/18 10:58 Dose: Not Given Budesonide (Pulmicort Respules) 1 mg IH [id number] [facility] Last Admin: 10/06/18 07:37 Dose: 1 mg Colchicine (Colocrys) 0.6 mg PO DAILY [facility] Last Admin: 10/06/18 10:57 Dose: 0.6 mg Ergocalciferol (Drisdol 50,000 Intl Units Cap) 1 cap PO Q7D [facility] Last Admin: 10/02/18 15:48 Dose: 1 cap Famotidine (Pepcid) 20 mg PO DAILY [facility] Last Admin: 10/06/18 10:58 Dose: 20 mg Heparin Sodium (Porcine) (Heparin) 5,000 units SC Q8 [facility]; Protocol Last Admin: 10/06/18 15:11 Dose: 5,000 units Hydralazine HCl (Apresoline) 25 mg PO Q4 PRN PRN Reason: SYS >170 OR ALBERTO >110 Losartan Potassium (Cozaar) 50 mg PO DAILY [facility] Last Admin: 10/06/18 10:57 Dose: Not Given Nystatin (Nystatin Oral Susp) 5 ml PO QID [facility] Last Admin: 10/06/18 15:02 Dose: 5 ml Prednisone (Prednisone Tab) 5 mg PO DAILY [facility] Last Admin: 10/06/18 10:58 Dose: 5 mg Tamsulosin HCl (Flomax) 0.4 mg PO DAILY [facility] Last Admin: 10/06/18 10:57 Dose: 0.4 mg - Labs Labs: 10/04/18 07:15 10/04/18 07:15
--- NOTE | 2018-10-07 08:16 | PN ---
DATE: 10/06/2018 LOCATION: Room 576, bed 2. REASON FOR CONSULTATION: Sinus tachycardia with associated exacerbation of COPD. SUBJECTIVE: The patient was admitted with exacerbation of COPD and found to have tachycardia, rate going up to 152 to 160 per minute. So, the patient was put on atenolol and treated for exacerbation of COPD, so heart rate became much lower. The patient denies any chest pain or palpitations and at present, the patient's heart rate today morning was 78 and later on was 94. Blood pressure 107/68, respirations 18. The patient is afebrile. ASSESSMENT AND PLAN: We will continue present dose of atenolol and other therapy for his chronic obstructive pulmonary disease. I will continue to monitor with you and follow with you. Heart rate has been stable with the atenolol. Morgan Warner MD
--- NOTE | 2018-10-07 08:22 | CON ---
DATE: 10/06/2018 UROLOGY CONSULTATION REASON FOR CONSULTATION: Urinary tract infection. HISTORY OF PRESENT ILLNESS: Mr. Denson is a 73-year-old gentleman who is here with an exacerbation of his asthma and breathing difficulty. He has had two episodes of retention which is about close to 1000 mL, and from Urology standpoint, we were consulted to make a recommendation. PAST MEDICAL AND SURGICAL HISTORY: As listed above. The patient of Dr. Roper. The patient reports though he does have some baseline voiding dysfunction, never quite retention but decreased with irritating and obstructive and decreased urinary stream, nocturia, etc., hospitalization on Flomax. PHYSICAL EXAMINATION: GENERAL: Well nourished, in no apparent distress. Currently resting comfortably in bed. Deep breathing is noted. ABDOMEN: Overall soft. Alamo catheter is in place, draining well. DIAGNOSIS: Acute urinary retention on two separate episodes. PLAN: The plan is as follows: 1. Maintain the current Alamo. We are going to start Flomax and then further plans will follow. Eventually, we will try a voiding trial. 2. We kept the patient get up and stay ambulatory, moving his bowels well, back in is normal self, and then we can actually do it. Most likely, we will do this as an outpatient. I discussed with the patient that not to keep trying now the trails of void. 3. plan is to leave the Alamo, Flomax, make sure that the bowels are moving well, ambulating well, breathing well, and then we will plan for a voiding trial in the office. 4. I gave the patient my card and appointment for a followup visit. He lives in [place]. He thinks he is going home at this point sometime today. They are just waiting to see me. I explained to the patient we can leave him with the Alamo catheter and we will start medications. Further plan : 1. Maintain Alamo. 2. Flomax. 3. Bowel regimen with Metamucil. 4. Outpatient followup in my office this week. Thank you for the Urology consult. Manjit Roche MD [facility] # [id number]
--- NOTE | 2018-10-07 17:40 | PQF ---
PROVIDER RESPONSE TEXT: Patient has moderate persistent asthma REVIEWER QUERY TEXT: Asthma Specificity and Type Asthma is documented in the Medical Record. Please specify the type and severity of asthma and indic ate if this is associated with exacerbation or status asthmaticus. Such as: -- Mild intermittent -- Mild persistent -- Moderate persistent -- Severe persistent -- Exercise induced bronchospasm -- Cough variant asthma -- Other, please specify The patient's Clinical Indicators include: Please see below. Thank you. Query created by: Hayde Lam on 10/07/2018 2:33 PM Electronically signed by: Morgan Coughlin MD 10/07/2018 5:37 PM
== END 2018-10-06 18:44 | DRG 207 ==
LOC: ED 03:08 → ERH 05:19 → 2RNO 06:40 → ICU 14:20 → 5RNO 09-28 13:59 → 5RSO 09-28 17:19
PROVIDERS: ADMIT Internal Medicine; ATTEND Internal Medicine
PROC: 5A1955Z Respiratory Ventilation, Greater than 96 Consecutive Hours (ICD-10-PCS; principal; 2018-09-22)
PROC: 0BH17EZ Insertion of Endotracheal Airway into Trachea, Via Natural or Artificial Opening (ICD-10-PCS; 2018-09-22)
PROC: 5A09357 Assistance with Respiratory Ventilation, Less than 24 Consecutive Hours, Continuous Positive Airway Pressure (ICD-10-PCS; 2018-10-02)
DX: J45.901 Unspecified asthma with (acute) exacerbation (principal); J96.22 Acute and chronic respiratory failure with hypercapnia; J96.21 Acute and chronic respiratory failure with hypoxia; N17.0 Acute kidney failure with tubular necrosis; E87.2 Acidosis; J44.1 Chronic obstructive pulmonary disease with (acute) exacerbation; E87.0 Hyperosmolality and hypernatremia; Z99.11 Dependence on respirator [ventilator] status; R65.10 Systemic inflammatory response syndrome (SIRS) of non-infectious origin without acute organ dysfunction; E27.40 Unspecified adrenocortical insufficiency; E87.4 Mixed disorder of acid-base balance; N39.0 Urinary tract infection, site not specified; I10 Essential (primary) hypertension; T36.3X5A Adverse effect of macrolides, initial encounter; R21 Rash and other nonspecific skin eruption; M1A.9XX0 Chronic gout, unspecified, without tophus (tophi); Z87.891 Personal history of nicotine dependence; Z91.19 Patient's noncompliance with other medical treatment and regimen; Z79.52 Long term (current) use of systemic steroids; E87.5 Hyperkalemia; J45.902 Unspecified asthma with status asthmaticus; F09 Unspecified mental disorder due to known physiological condition; T38.0X5A Adverse effect of glucocorticoids and synthetic analogues, initial encounter; D69.6 Thrombocytopenia, unspecified; D64.9 Anemia, unspecified; D72.819 Decreased white blood cell count, unspecified; E11.65 Type 2 diabetes mellitus with hyperglycemia; E55.9 Vitamin D deficiency, unspecified; E87.6 Hypokalemia; E87.8 Other disorders of electrolyte and fluid balance, not elsewhere classified; G47.30 Sleep apnea, unspecified; I35.0 Nonrheumatic aortic (valve) stenosis; K21.9 Gastro-esophageal reflux disease without esophagitis; M19.90 Unspecified osteoarthritis, unspecified site; T50.2X5A Adverse effect of carbonic-anhydrase inhibitors, benzothiadiazides and other diuretics, initial encounter; Z53.20 Procedure and treatment not carried out because of patient's decision for unspecified reasons; Z78.1 Physical restraint status; Z88.1 Allergy status to other antibiotic agents